=== PATIENT | male | born 1970 | race Caucasian/White ===

== ENCOUNTER 2021-04-25 18:37 | Inpatient (IN) | payer MEDICARE, OTHER ==
[2021-04-25 20:49] LABS: Basophils % (A) 0 %; Eosinophils % (A) 1 %; HCT 26.2 % (39.0-53.0); HGB 8.5 gm/dL (13.0-17.5); Hypochromasia Slight; Lymphocytes # (A) 0.3 k/uL (1.0-4.8); Lymphocytes % (A) 11 %; MCH 32.8 pg (25.0-35.0); MCHC 32.5 g/dL (31.0-37.0); MCV 100.9 fL (80.0-100.0); Macrocytosis Slight; Mean Platelet Volume 7.8; Monocytes # (A) 0.2 k/uL (0-1.0); Monocytes % (A) 7 %; Neutrophils # (A) 2.1 k/uL (1.3-7.7); Neutrophils % (A) 79 %; Platelet Count 124 k/uL (150-450); WBC 2.6 k/uL (3.8-10.6)
[2021-04-25 21:06] LABS: Partial Thromboplastin Time 26.7 sec (22.0-30.0); Prothrombin Time 10.4 sec (9.0-12.0)
--- NOTE | 2021-04-25 21:08 | XR ---
EXAMINATION TYPE: XR chest 2V DATE OF EXAM: 04/25/2021 8:39 PM COMPARISON:None TECHNIQUE: Frontal and lateral views of the chest. CLINICAL INDICATION:Male, 50 years old with history of difficulty breathing; FINDINGS: Lungs/Pleura: There is no evidence of focal consolidation, or pneumothorax. Trace bilateral pleural e ffusions Pulmonary vascularity: Unremarkable. Heart/mediastinum: Cardiomediastinal silhouette is unremarkable. Musculoskeletal: No acute osseous pathology. Other findings: None Lines/Tubes: Right internal jugular central venous catheter with distal tip at the cavoatrial junction. IMPRESSION: 1. Trace bilateral pleural effusions. 2. Right venous catheter with tip in appropriate position.
[2021-04-25 21:49] LABS: Albumin 3.1 g/dL (3.5-5.0); Calcium 9.3 mg/dL (8.4-10.2); Potassium 4.3 mmol/L (3.5-5.1); Total Bilirubin 0.7 mg/dL (0.2-1.3); Total Protein 5.5 g/dL (6.3-8.2)
[2021-04-25] MEDS ORDERED: HEPARIN SODIUM 1,000 UN/ML (10ML VL) IV PRN (21:50)
[2021-04-25] MEDS ORDERED: HEPARIN SODIUM 1,000 UN/ML (10ML VL) IV ONE (21:50)
[2021-04-25] MEDS ORDERED: ASPIRIN 81 MG PO STA (21:51)
[2021-04-25] MEDS ORDERED: HEPARIN SOD,PORK IN 0.45% NACL 25,000 UNIT in 0.45% NACL 1 250ML.BAG IV SCH (22:00)
[2021-04-25] MEDS ORDERED: NALOXONE 0.4 MG/ML 1 ML VIAL IV PRN (22:14)
--- NOTE | 2021-04-25 22:14 | ED ---
General Adult HPI - General Chief complaint: Shortness of Breath Stated complaint: Chest pain/high HR Time Seen by Provider: 04/25/21 21:10 Source: patient, RN notes reviewed, old records reviewed Mode of arrival: ambulatory Limitations: no limitations - History of Present Illness Initial comments: Patient is a 50-year-old male with past medical history remarkable for GERD, ESRD on hemodialysis via right chest PermCath who presents emergency Department complaining of a multi day history of shortness of breath. Patient was originally seen and outside facility, however they stated they could not treat him and he presented via private vehicle for further evaluation. They diagnosed him with an elevated BNP as well as an elevated d-dimer with recommendation to obtain PE rule out. His no history of blood clots. Has not missed any episodes of dialysis. He is complaining of worsening exertional shortness of breath. Denies any worsening lower extremity edema. In eyes any worsening orthopnea or PND. Denies any chest pain, abdominal pain, nausea, vomiting. Denies any lightheadedness. Has no other acute point at this time. Patient also has a history of atrial fibrillation however is not on any anticoagulation. Presents emergency department for pulmonary embolus and rule out. Denies any fevers, chills, sick contacts. Patient was evaluated when he was placed in a room. - Related Data Home Medications Medication Instructions Recorded Confirmed ALPRAZolam [Xanax] 0.5 mg PO HS 12/18/17 04/25/21 Cyclosporine, Modified [Gengraf] 25 mg PO BID 12/18/17 04/25/21 Levothyroxine Sodium [Synthroid] 50 mcg PO DAILY 12/18/17 04/25/21 Montelukast [Singulair] 10 mg PO HS 12/18/17 04/25/21 allopurinoL [Zyloprim] 100 mg PO DAILY 12/18/17 04/25/21 Cholecalciferol [Vitamin D3 (25 50 mcg PO Q48H 04/25/21 04/25/21 Mcg = 1000 Iu)] Magnesium Oxide [Magox 400] 400 mg PO DAILY 04/25/21 04/25/21 [place]-3 Fatty Acids [[place]-3] 1,000 mg PO DAILY 04/25/21 04/25/21 predniSONE 10 mg PO DAILY 04/25/21 04/25/21 Allergies Allergy/AdvReac Type Severity Reaction Status Date / Time codeine Allergy Rash/Hives Verified 04/25/21 22:58 cyclobenzaprine Allergy Rash/Hives Verified 04/25/21 22:58 [From Flexeril] diphenhydramine Allergy Anaphylaxis Verified 04/25/21 22:58 [From Benadryl] hydromorphone [From Dilaudid] Allergy Rash/Hives Verified 04/25/21 22:58 hydroxyzine Allergy Anaphylaxis Verified 04/25/21 22:58 Iodinated Contrast Media Allergy Anaphylaxis Verified 04/25/21 22:58 [Iodinated Contrast- Oral and IV Dye] latex Allergy Rash/Hives Verified 04/25/21 22:58 pantoprazole [From Protonix] Allergy Anaphylaxis Verified 04/25/21 22:58 Penicillins Allergy Rash/Hives Verified 04/25/21 22:58 potassium chloride Allergy Rash/Hives Verified 04/25/21 22:58 pregabalin [From Lyrica] Allergy Anaphylaxis Verified 04/25/21 22:58 sevelamer Allergy Rash/Hives Verified 04/25/21 22:58 warfarin [From Coumadin] Allergy Anaphylaxis Verified 04/25/21 22:58 acetaminophen [From Vicodin] AdvReac Nausea & Verified 04/25/21 22:58 Vomiting aripiprazole [From Abilify] AdvReac Abdominal Verified 04/25/21 22:58 Pain aztreonam AdvReac Unknown Verified 04/25/21 22:58 calcitriol AdvReac Unknown Verified 04/25/21 22:58 cefadroxil AdvReac Unknown Verified 04/25/21 22:58 enalapril AdvReac Unknown Verified 04/25/21 22:58 hydrocodone [From Vicodin] AdvReac Nausea & Verified 04/25/21 22:58 Vomiting Influenza Virus Vaccines AdvReac Unknown Verified 04/25/21 22:58 levofloxacin [From Levaquin] AdvReac Abdominal Verified 04/25/21 22:58 Pain meloxicam [From Mobic] AdvReac Abdominal Verified 04/25/21 22:58 Pain morphine AdvReac Unknown Verified 04/25/21 22:58 propoxyphene AdvReac Unknown Verified 04/25/21 22:58 Sulfa (Sulfonamide AdvReac Vomiting Verified 04/25/21 22:58 Antibiotics) tramadol AdvReac Unknown Verified 04/25/21 22:58 Review of Systems ROS Statement: Those systems with pertinent positive or pertinent negative responses have been documented in the HPI. Review of Systems: CONST: Denies fever EYES: Denies blurry vision ENT: Denies nasal congestion C/V: Denies Chest pain RESP: Endorses shortness of breath GI: Denies abdominal pain : Denies dysuria SKIN: Denies rash. MSK: Denies joint pain. NEURO: Denies headache ROS Other: All systems not noted in ROS Statement are negative. Past Medical History Past Medical History: GERD/Reflux, Renal Disease Additional Past Medical History / Comment(s): dialysis, diverticulitis History of Any Multi-Drug Resistant Organisms: None Reported Additional Past Surgical History / Comment(s): fistula placement Past Psychological History: No Psychological Hx Reported Smoking Status: Never smoker Past Alcohol Use History: None Reported Past Drug Use History: None Reported General Exam - General Exam Comments Initial Comments: General: Appears in no acute distress. HEAD: Normal with no signs of head trauma. EYES: PERRLA, EOMI, conjunctiva normal, no discharge. ENT: Hearing grossly intact, normal oropharynx. RESPIRATORY: Clear breath sounds bilaterally. No wheezes, rales, or rhonchi. Not hypoxic. No increased work of breathing. C/V: Regular rate and rhythm. S1 and S2 auscultated, no edema, peripheral pulses 2+ and intact throughout. Patient's PermCath appears unremarkable and the right chest. ABD: Abd is soft, nontender, nondistended EXT: Normal range of motion, no obvious deformity SKIN: No rashes or lesions observed on exposed skin. NEURO: Alert and oriented x 4. Cranial nerves II-XII intact. No focal sensory or strength deficits. Limitations: no limitations Course Vital Signs 04/25/21 04/25/21 19:42 21:51 Temperature 98.4 F Pulse Rate 100 81 Respiratory 20 18 Rate Blood Pressure 118/74 143/94 O2 Sat by Pulse 95 95 Oximetry Procedures - [place] Protocol (Time Out) Nurse: Scott Lora Medical Decision Making - Medical Decision Making Based on the patient's presentation and physical exam, I'm concerned for volume overload versus his elevated d-dimer for possible PE. Repeat laboratory studies were already drawn while he was in the waiting room. Remarkable for a macrocytic anemia with hemoglobin of 8.5 which is chronic. D-dimer is elevated to 2.25. Troponin is minimally elevated to 0.049, and BNP is elevated to 34,000. Chest x-ray was obtained and revealed trace bilateral pleural effusions with no sign of CHF. EKG was obtained and showed no acute cardio pulmonary process. Patient is an elevated BUN/creatinine the setting of ESRD. Patient is mildly hyponatremic to 125 hypokalemic to 91. Remainder of the labs are unremarkable. Vital signs remained within normal limits and stable. I updated the patient on results of his laboratory studies and imaging. I would like to admit him to the hospital in place him empirically on heparin as he has an anaphylactic reaction to iodine contrast, and is also ALLERGIC to Benadryl. Therefore he will be admitted for a VQ scan, however will be empirically placed on heparin until VQ scan can be completed tomorrow. He will also be given an aspirin for his mildly elevated troponin we will trend up. Cardiology will be consulted as well as pulmonology. Patient was in agreement with this plan .Patient was evaluated multiple times status in the emergency department by myself and continued to remain within normal limits in terms of his vital signs and stable. Patient does not have a PCP, and therefore will be admitted to [facility]. Cardiology and pulmonology will both be consulted for the patient. Nephrology will also be consulted as he is due for his dialysis run due tomorrow. Patient was in agreement this plan. Patient was therefore admitted to telemetry bed and serous condition. - Lab Data Result diagrams: 04/25/21 20:36 04/25/21 20:36 Lab Results 04/25/21 04/25/21 04/25/21 Range/Units 20:36 20:36 20:36 WBC 2.6 L (3.8-10.6) k/uL RBC 2.60 L (4.30-5.90) m/uL Hgb 8.5 L (13.0-17.5) gm/dL Hct 26.2 L (39.0-53.0) % MCV 100.9 H (80.0-100.0) fL MCH 32.8 (25.0-35.0) pg MCHC 32.5 (31.0-37.0) g/dL RDW 14.0 (11.5-15.5) % Plt Count 124 L (150-450) k/uL MPV 7.8 Neutrophils % 79 % Lymphocytes % 11 % Monocytes % 7 % Eosinophils % 1 % Basophils % 0 % Neutrophils # 2.1 (1.3-7.7) k/uL Lymphocytes # 0.3 L (1.0-4.8) k/uL Monocytes # 0.2 (0-1.0) k/uL Eosinophils # 0.0 (0-0.7) k/uL Basophils # 0.0 (0-0.2) k/uL Hypochromasia Slight Macrocytosis Slight PT 10.4 (9.0-12.0) sec INR 1.0 (<1.2) APTT 26.7 (22.0-30.0) sec D-Dimer 2.25 H (<0.60) mg/L FEU Sodium 125 L (137-145) mmol/L Potassium 4.3 (3.5-5.1) mmol/L Chloride 91 L (98-107) mmol/L Carbon Dioxide 27 (22-30) mmol/L Anion Gap 7 mmol/L BUN 44 H (9-20) mg/dL Creatinine 8.67 H* (0.66-1.25) mg/dL Est GFR (CKD-EPI)AfAm 7 (>60 ml/min/1.73 sqM) Est GFR (CKD-EPI)NonAf 6 (>60 ml/min/1.73 sqM) Glucose 130 H (74-99) mg/dL Plasma Lactic Acid Cristobal (0.7-2.0) mmol/L Calcium 9.3 (8.4-10.2) mg/dL Total Bilirubin 0.7 (0.2-1.3) mg/dL AST 29 (17-59) U/L ALT 20 (4-49) U/L Alkaline Phosphatase 87 (38-126) U/L Troponin I (0.000-0.034) ng/mL NT-Pro-B Natriuret Pep pg/mL Total Protein 5.5 L (6.3-8.2) g/dL Albumin 3.1 L (3.5-5.0) g/dL 04/25/21 04/25/21 04/25/21 Range/Units 20:36 20:36 20:36 WBC (3.8-10.6) k/uL RBC (4.30-5.90) m/uL Hgb (13.0-17.5) gm/dL Hct (39.0-53.0) % MCV (80.0-100.0) fL MCH (25.0-35.0) pg MCHC (31.0-37.0) g/dL RDW (11.5-15.5) % Plt Count (150-450) k/uL MPV Neutrophils % % Lymphocytes % % Monocytes % % Eosinophils % % Basophils % % Neutrophils # (1.3-7.7) k/uL Lymphocytes # (1.0-4.8) k/uL Monocytes # (0-1.0) k/uL Eosinophils # (0-0.7) k/uL Basophils # (0-0.2) k/uL Hypochromasia Macrocytosis PT (9.0-12.0) sec INR (<1.2) APTT (22.0-30.0) sec D-Dimer (<0.60) mg/L FEU Sodium (137-145) mmol/L Potassium (3.5-5.1) mmol/L Chloride (98-107) mmol/L Carbon Dioxide (22-30) mmol/L Anion Gap mmol/L BUN (9-20) mg/dL Creatinine (0.66-1.25) mg/dL Est GFR (CKD-EPI)AfAm (>60 ml/min/1.73 sqM) Est GFR (CKD-EPI)NonAf (>60 ml/min/1.73 sqM) Glucose (74-99) mg/dL Plasma Lactic Acid Cristobal 0.6 L (0.7-2.0) mmol/L Calcium (8.4-10.2) mg/dL Total Bilirubin (0.2-1.3) mg/dL AST (17-59) U/L ALT (4-49) U/L Alkaline Phosphatase (38-126) U/L Troponin I 0.049 H* (0.000-0.034) ng/mL NT-Pro-B Natriuret Pep 90480 pg/mL Total Protein (6.3-8.2) g/dL Albumin (3.5-5.0) g/dL - EKG Data -: EKG Interpreted by Me EKG Comments: 12-lead Electrocardiogram Interpretation Note EKG was reviewed and interpreted by myself. 12-lead ECG performed at 20-4 is interpreted by me as revealing atrial fibrillation rate controlled at a rate of 105 beats per minute. Clune is normal. MA interval is unobtainable, QRS ration is 95 ms, QTc is 390 ms.. There were no ST or T wave abnormalities to suggest myocardial ischemia or injury. R wave progression across the precordium was satisfactory. By my interpretation this EKG is non-diagnostic for acute ischemia. Critical Care Time Critical Care Time: Yes Total Critical Care Time: 35 Critical Care Time: Upon my evaluation, this patient had a high probability of imminent or life- threatening deterioration due to elevated d-dimer rule out PE, dyspnea, which required my direct attention, intervention, and personal management. I have personally provided 35 minutes of critical care time exclusive of time spent on separately billable procedures. Time includes review of laboratory data, radiology results, discussion with consultants, and monitoring for potential decompensation. Interventions were performed as documented in my note. Disposition Clinical Impression: Elevated d-dimer, Elevated troponin, Dyspnea, ESRD on dialysis, Bilateral pleural effusion Disposition: ADMITTED IP TO THIS HOSP Condition: Serious
--- NOTE | 2021-04-25 23:52 | US ---
EXAMINATION TYPE: US venous doppler duplex LE DATE OF EXAM: 04/25/2021 10:51 PM COMPARISON: NONE CLINICAL HISTORY: elevated d dimer. Elevated Ddimer SIDE PERFORMED: Bilateral TECHNIQUE: The lower extremity deep venous system is examined utilizing real time linear array sonog [place] with graded compression, doppler sonography and color-flow sonography. VESSELS IMAGED: Common Femoral Vein Deep Femoral Vein Greater Saphenous Vein * Femoral Vein Popliteal Vein Small Saphenous Vein * Proximal Calf Veins (* superficial vessels) Right Leg: Negative for DVT Left Leg: Negative for DVT IMPRESSION: No evidence of deep vein thrombosis in both legs.
--- NOTE | 2021-04-26 03:26 | P.HPIM ---
History of Present Illness H&P Date: 04/25/21 Chief Complaint: Shortness of breath 50-year-old male with end-stage renal disease, A. fib Patient comes in today due to worsening shortness of breath which has been progressive over the past 4 months. Patient has end-stage renal disease since age of 13 or 14 he had a kidney transplant for good 20 years and been filled recently over the past for 5 years. Patient since then been back on hemodialysis currently performing home hemodialysis through a right permacath which was inserted 4 months ago he claims that since the insertion of the right permacath is been having some difficulty with swallowing. He reports history of GERD and now having some symptoms of dysphagia occasionally with solid foods. He also had noticed some shortness of breath which got worse over the past 2 months it's been progressive mild exertion no shortness of breath at rest or laying down denies any PND is or orthopnea. Denies any chest pain or wheezing. This has been progressive so he went to [facility] where he was evaluated he was found to have elevated d-dimer is ALLERGIC to Benadryl and iodine for which he recommended they come to our hospital for further evaluation CTA was not done patient was not hypoxic chest x-ray shows trace bilateral pleural effusion. Patient denies any history of blood clots denies being on any blood thinner despite having history of A. fib. He denies any bleeding. He is otherwise been clinically stable in good health condition except for the progressive shortness of breath and decreased functional capacity. His mother who performs his hemodialysis has noted that every time she does his vitals during dialysis his heartrate will be elevated in the 130s and that's usually leads to the shortness of breath later. However they never thought of talking about this with his collection clerk as it subsides once he finishes dialysis or when he rests all his symptoms goes away. Further workup showed low white count at 2.6 chronic anemia hemoglobin 8.5 end- stage renal disease low platelets 124. D-dimer elevated 2.25 Low sodium and elevated BMP. Patient denies any history of CHF. Patient admitted for further workup and evaluation by cardiology and pulmonology and nephrology, VQ scan to be performed in the morning and echocardiogram to evaluate left ventricular ejection fraction Review of Systems Pertinent positives as noted in HPI. All other systems were reviewed and are negative Past Medical History Past Medical History: Atrial Fibrillation, GERD/Reflux, Renal Disease Additional Past Medical History / Comment(s): dialysis, diverticulitis History of Any Multi-Drug Resistant Organisms: None Reported Additional Past Surgical History / Comment(s): fistula placement Past Psychological History: No Psychological Hx Reported Smoking Status: Never smoker Past Alcohol Use History: None Reported Past Drug Use History: None Reported - Past Family History Family Family Medical History: No Reported History Medications and Allergies Home Medications Medication Instructions Recorded Confirmed Type ALPRAZolam [Xanax] 0.5 mg PO HS 12/18/17 04/25/21 History Cyclosporine, Modified [Gengraf] 25 mg PO BID 12/18/17 04/25/21 History Levothyroxine Sodium [Synthroid] 50 mcg PO DAILY 12/18/17 04/25/21 History Montelukast [Singulair] 10 mg PO HS 12/18/17 04/25/21 History allopurinoL [Zyloprim] 100 mg PO DAILY 12/18/17 04/25/21 History Cholecalciferol [Vitamin D3 (25 50 mcg PO Q48H 04/25/21 04/25/21 History Mcg = 1000 Iu)] Magnesium Oxide [Magox 400] 400 mg PO DAILY 04/25/21 04/25/21 History [place]-3 Fatty Acids [[place]-3] 1,000 mg PO DAILY 04/25/21 04/25/21 History predniSONE 10 mg PO DAILY 04/25/21 04/25/21 History Allergies Allergy/AdvReac Type Severity Reaction Status Date / Time codeine Allergy Rash/Hives Verified 04/25/21 22:58 cyclobenzaprine Allergy Rash/Hives Verified 04/25/21 22:58 [From Flexeril] diphenhydramine Allergy Anaphylaxis Verified 04/25/21 22:58 [From Benadryl] hydromorphone [From Dilaudid] Allergy Rash/Hives Verified 04/25/21 22:58 hydroxyzine Allergy Anaphylaxis Verified 04/25/21 22:58 Iodinated Contrast Media Allergy Anaphylaxis Verified 04/25/21 22:58 [Iodinated Contrast- Oral and IV Dye] latex Allergy Rash/Hives Verified 04/25/21 22:58 pantoprazole [From Protonix] Allergy Anaphylaxis Verified 04/25/21 22:58 Penicillins Allergy Rash/Hives Verified 04/25/21 22:58 potassium chloride Allergy Rash/Hives Verified 04/25/21 22:58 pregabalin [From Lyrica] Allergy Anaphylaxis Verified 04/25/21 22:58 sevelamer Allergy Rash/Hives Verified 04/25/21 22:58 warfarin [From Coumadin] Allergy Anaphylaxis Verified 04/25/21 22:58 acetaminophen [From Vicodin] AdvReac Nausea & Verified 04/25/21 22:58 Vomiting aripiprazole [From Abilify] AdvReac Abdominal Verified 04/25/21 22:58 Pain aztreonam AdvReac Unknown Verified 04/25/21 22:58 calcitriol AdvReac Unknown Verified 04/25/21 22:58 cefadroxil AdvReac Unknown Verified 04/25/21 22:58 enalapril AdvReac Unknown Verified 04/25/21 22:58 hydrocodone [From Vicodin] AdvReac Nausea & Verified 04/25/21 22:58 Vomiting Influenza Virus Vaccines AdvReac Unknown Verified 04/25/21 22:58 levofloxacin [From Levaquin] AdvReac Abdominal Verified 04/25/21 22:58 Pain meloxicam [From Mobic] AdvReac Abdominal Verified 04/25/21 22:58 Pain morphine AdvReac Unknown Verified 04/25/21 22:58 propoxyphene AdvReac Unknown Verified 04/25/21 22:58 Sulfa (Sulfonamide AdvReac Vomiting Verified 04/25/21 22:58 Antibiotics) tramadol AdvReac Unknown Verified 04/25/21 22:58 Physical Exam Vitals: Vital Signs Temp Pulse Resp BP Pulse Ox 04/25/21 21:51 81 18 143/94 95 04/25/21 19:42 98.4 F 100 20 118/74 95 Intake and Output 04/25/21 04/25/21 04/25/21 06:59 14:59 22:59 Other: Weight 80.739 kg Constitutional: No acute distress, conversant, pleasant, patient is legally blind Eyes: Anicteric sclerae, moist conjunctiva, ENMT: NC/AT Oropharynx clear, no erythema, or exudates Neck: Supple, , no masses, or JVD No carotid bruits No thyromegaly Lungs: Clear to auscultation Clear to percussion Normal respiratory effort, no accessory muscle use Cardiovascular: Heart regular in rate and rhythm, No murmurs, gallops, or rubs Trace peripheral edema bilaterally Abdominal: Soft Nontender, no guarding, rebound or rigidity Abdomen moving with respiration Normoactive bowel sounds No hepatomegaly, No splenomegaly No palpable mass No abdominal wall hernia noted Skin: Normal temperature, tone, texture, turgor No induration No subcutaneous nodules No rash, lesions No ulcers Extremities: No digital cyanosis No clubbing Pedal pulses intact and symmetrical Radial pulses intact and symmetrical No calf tenderness Psychiatric: Alert and oriented to person, place and time Appropriate affect fair judgement Neuro Muscles Strength 4/5 in all 4 extremities Sensation to light touch grossly present throughout Cranial nerves II-XII grossly intact except for second cranial nerve optic nerve patient is legally blind No focal sensory deficits Lymphatics: no palpable cervical or supraclavicular , or inguinal lymph nodes Results CBC & Chem 7: 04/25/21 20:36 04/25/21 20:36 Labs: Abnormal Lab Results - Last 24 Hours (Table) 04/25/21 04/25/21 04/25/21 Range/Units 20:36 20:36 20:36 WBC 2.6 L (3.8-10.6) k/uL RBC 2.60 L (4.30-5.90) m/uL Hgb 8.5 L (13.0-17.5) gm/dL Hct 26.2 L (39.0-53.0) % MCV 100.9 H (80.0-100.0) fL Plt Count 124 L (150-450) k/uL Lymphocytes # 0.3 L (1.0-4.8) k/uL D-Dimer 2.25 H (<0.60) mg/L FEU Sodium 125 L (137-145) mmol/L Chloride 91 L (98-107) mmol/L BUN 44 H (9-20) mg/dL Creatinine 8.67 H* (0.66-1.25) mg/dL Glucose 130 H (74-99) mg/dL Plasma Lactic Acid Cristobal (0.7-2.0) mmol/L Troponin I (0.000-0.034) ng/mL Total Protein 5.5 L (6.3-8.2) g/dL Albumin 3.1 L (3.5-5.0) g/dL 04/25/21 04/25/21 Range/Units 20:36 20:36 WBC (3.8-10.6) k/uL RBC (4.30-5.90) m/uL Hgb (13.0-17.5) gm/dL Hct (39.0-53.0) % MCV (80.0-100.0) fL Plt Count (150-450) k/uL Lymphocytes # (1.0-4.8) k/uL D-Dimer (<0.60) mg/L FEU Sodium (137-145) mmol/L Chloride (98-107) mmol/L BUN (9-20) mg/dL Creatinine (0.66-1.25) mg/dL Glucose (74-99) mg/dL Plasma Lactic Acid Cristobal 0.6 L (0.7-2.0) mmol/L Troponin I 0.049 H* (0.000-0.034) ng/mL Total Protein (6.3-8.2) g/dL Albumin (3.5-5.0) g/dL Assessment and Plan Assessment: Progressive exertional dyspnea Rule out underlying PE patient has elevated d-dimer to DrLety from CT angiogram the chest due to ALLERGY to iodine and Benadryl and multiple other medication ALLERGIES Plan for VQ scan the morning Patient is on room air Doubt the diagnosis of PE Patient was started on heparin drip Patient also have A. fib with RVR not currently on any blood thinners Check echocardiogram Consider cardiology and pulmonology consultation End-stage renal disease on home hemodialysis, through a right permacath which was placed 4 months ago Nephrology consult for dialysis Follow-up morning labs Chronic anemia stable Patient denies any GI bleeding History of GERD with new symptoms of dysphagia Consider outpatient follow-up with GI Patient has established GI outpatient he had the colonoscopy done recently and was negative Fall precautions Due to prophylaxis currently on heparin drip Full code Spit length of stay less than 2 midnights
[2021-04-26] MEDS ORDERED: LEVOTHYROXINE 50 MCG TAB PO SCH (06:30)
[2021-04-26 06:33] LABS: Albumin 3.4 g/dL (3.5-5.0); Calcium 9.6 mg/dL (8.4-10.2); Total Bilirubin 0.7 mg/dL (0.2-1.3); Total Protein 6.1 g/dL (6.3-8.2)
[2021-04-26 06:36] LABS: HCT 27.3 % (39.0-53.0); HGB 8.8 gm/dL (13.0-17.5); Hypochromasia Slight; MCH 32.8 pg (25.0-35.0); MCHC 32.2 g/dL (31.0-37.0); Macrocytosis Slight; Mean Platelet Volume 8.4; Platelet Count 142 k/uL (150-450); RBC 2.68 m/uL (4.30-5.90); RDW 13.9 % (11.5-15.5); WBC 2.5 k/uL (3.8-10.6)
[2021-04-26 07:10] LABS: Anisocytosis (M) Present; Lymphocytes # (M) 0.48 k/uL (1.0-4.8); Monocytes # (M) 0.35 k/uL (0-1.0); Neutrophils # (M) 1.68 k/uL (1.3-7.7); Neutrophils % (M) 67 %; Nucleated Red Blood Cells 0 /100 WBC (0-0); Polychromasia Present; Total Cells Counted 100
[2021-04-26 08:25] VITALS: TEMP 98.5
[2021-04-26] MEDS ORDERED: predniSONE 10 MG TAB PO SCH (09:00)
[2021-04-26] MEDS ORDERED: MAGNESIUM OXIDE 400 MG TAB PO SCH (09:00)
[2021-04-26] MEDS ORDERED: allopurinoL 100 MG TAB PO SCH (09:00)
[2021-04-26] MEDS ORDERED: METOPROLOL TARTRATE 25 MG TAB PO SCH (09:30)
--- NOTE | 2021-04-26 09:45 | P.HPPUL ---
History of Present Illness H&P Date: 04/26/21 Chief Complaint: Palpitations, chest pain Visit very pleasant 50-year-old male patient with a known history of end-stage renal disease and receives hemodialysis Friday at home. He also has a history of gastroesophageal reflux disease, hypothyroidism, anxiety, recent shingles, atrial fibrillation not on anticoagulation. He presented here to the emergency room as a transfer from an outside facility. He was having complaints of increased heart rate, palpitations and chest pain. He is having some shortness of breath on exertion. Chest x-ray shows trace bilateral effusions. Right subclavian permacatheter in place. White count 2.5. Hemoglobin 8.8. Platelets 142,000. D-dimer 2.25. Sodium 127. Potassium 4.0. BUN 50. Creatinine 9.74. Troponin 0.049, 0.050, 0.048. ProBNP 34,000. Vee virus by PCR not detected. EKG reveals atrial fibrillation with varying ventricular response. Dopplers of the lower extremity were negative for DVT. IV dye ALLERGY. The patient was unable to lay flat today for a VQ scan. He is seen today in consultation in the emergency department. He is currently resting comfortably on the stretcher. Awake and alert in no acute distress. Maintaining O2 saturation at 97% on room air. No worsening shortness of breath, cough or congestion. He is due for hemodialysis today. Echocardiogram pending. There is a murmur present. Review of Systems REVIEW OF SYSTEMS: CONSTITUTIONAL: Denies any recent significant weight loss or weight gain. EYES: Denies change in vision. EARS, NOSE, MOUTH, THROAT: Denies headaches, denies sore throat. CARDIOVASCULAR: Positive for chest pain, palpitations no syncopal episodes. RESPIRATORY: Positive for shortness of breath on exertion, no cough, congestion or hemoptysis. GASTROINTESTINAL: Denies change in appetite, denies abdominal pain GENITOURINARY: Denies hematuria, denies infections. MUSKULOSKELETAL: Denies pain, denies swelling. INTEGUMENTARY: Denies rash, denies eczema. NEUROLOGICAL: Denies recent memory loss, no recent seizure activity. PSYCHIATRIC: Denies anxiety, denies depression. HEMATOLOGIC/LYMPHATIC: Denies anemia, denies enlarged lymph nodes. Past Medical History Past Medical History: Atrial Fibrillation, GERD/Reflux, Renal Disease Additional Past Medical History / Comment(s): dialysis, diverticulitis History of Any Multi-Drug Resistant Organisms: None Reported Additional Past Surgical History / Comment(s): fistula placement Past Psychological History: No Psychological Hx Reported Smoking Status: Never smoker Past Alcohol Use History: None Reported Past Drug Use History: None Reported - Past Family History Family Family Medical History: No Reported History Medications and Allergies Home Medications Medication Instructions Recorded Confirmed Type ALPRAZolam [Xanax] 0.5 mg PO HS 12/18/17 04/25/21 History Cyclosporine, Modified [Gengraf] 25 mg PO BID 12/18/17 04/25/21 History Levothyroxine Sodium [Synthroid] 50 mcg PO DAILY 12/18/17 04/25/21 History Montelukast [Singulair] 10 mg PO HS 12/18/17 04/25/21 History allopurinoL [Zyloprim] 100 mg PO DAILY 12/18/17 04/25/21 History Cholecalciferol [Vitamin D3 (25 50 mcg PO Q48H 04/25/21 04/25/21 History Mcg = 1000 Iu)] Magnesium Oxide [Magox 400] 400 mg PO DAILY 04/25/21 04/25/21 History [place]-3 Fatty Acids [[place]-3] 1,000 mg PO DAILY 04/25/21 04/25/21 History predniSONE 10 mg PO DAILY 04/25/21 04/25/21 History Allergies Allergy/AdvReac Type Severity Reaction Status Date / Time codeine Allergy Rash/Hives Verified 04/25/21 22:58 cyclobenzaprine Allergy Rash/Hives Verified 04/25/21 22:58 [From Flexeril] diphenhydramine Allergy Anaphylaxis Verified 04/25/21 22:58 [From Benadryl] hydromorphone [From Dilaudid] Allergy Rash/Hives Verified 04/25/21 22:58 hydroxyzine Allergy Anaphylaxis Verified 04/25/21 22:58 Iodinated Contrast Media Allergy Anaphylaxis Verified 04/25/21 22:58 [Iodinated Contrast- Oral and IV Dye] latex Allergy Rash/Hives Verified 04/25/21 22:58 pantoprazole [From Protonix] Allergy Anaphylaxis Verified 04/25/21 22:58 Penicillins Allergy Rash/Hives Verified 04/25/21 22:58 potassium chloride Allergy Rash/Hives Verified 04/25/21 22:58 pregabalin [From Lyrica] Allergy Anaphylaxis Verified 04/25/21 22:58 sevelamer Allergy Rash/Hives Verified 04/25/21 22:58 warfarin [From Coumadin] Allergy Anaphylaxis Verified 04/25/21 22:58 acetaminophen [From Vicodin] AdvReac Nausea & Verified 04/25/21 22:58 Vomiting aripiprazole [From Abilify] AdvReac Abdominal Verified 04/25/21 22:58 Pain aztreonam AdvReac Unknown Verified 04/25/21 22:58 calcitriol AdvReac Unknown Verified 04/25/21 22:58 cefadroxil AdvReac Unknown Verified 04/25/21 22:58 enalapril AdvReac Unknown Verified 04/25/21 22:58 hydrocodone [From Vicodin] AdvReac Nausea & Verified 04/25/21 22:58 Vomiting Influenza Virus Vaccines AdvReac Unknown Verified 04/25/21 22:58 levofloxacin [From Levaquin] AdvReac Abdominal Verified 04/25/21 22:58 Pain meloxicam [From Mobic] AdvReac Abdominal Verified 04/25/21 22:58 Pain morphine AdvReac Unknown Verified 04/25/21 22:58 propoxyphene AdvReac Unknown Verified 04/25/21 22:58 Sulfa (Sulfonamide AdvReac Vomiting Verified 04/25/21 22:58 Antibiotics) tramadol AdvReac Unknown Verified 04/25/21 22:58 Physical Examination Vital signs: Vital Signs Temp Pulse Resp BP Pulse Ox 98.4 F 100 20 118/74 95 04/25/21 19:42 04/25/21 19:42 04/25/21 19:42 04/25/21 19:42 04/25/21 19:42 General appearance: no acute distress, alert Eyes: nonicteric ENT: oropharynx moist Neck: supple, no JVD Effort: normal Auscultation: Bilateral: diminished breath sounds, rales Percussion: Bilateral: not dull Tactile fremitus: Bilateral: normal Cardiovascular: irregular rhythm, murmur noted Gastrointestinal: normoactive bowel sounds Integumentary: normal Extremities: no cyanosis, no edema Musculoskeletal: no deformities, ROM normal Gait: normal gait normal mental status, non-focal exam mood appropriate, affect normal Results - Laboratory Findings CBC and BMP: 04/26/21 05:50 04/26/21 05:50 PT/INR, D-dimer PT 10.4 sec (9.0-12.0) 04/25/21 20:36 INR 1.0 (<1.2) 04/25/21 20:36 D-Dimer 2.25 mg/L FEU (<0.60) H 04/25/21 20:36 Abnormal lab findings: Abnormal Labs 04/25/21 04/25/21 04/25/21 20:36 20:36 20:36 WBC 2.6 L RBC 2.60 L Hgb 8.5 L Hct 26.2 L MCV 100.9 H Plt Count 124 L Lymphocytes # 0.3 L Lymphocytes # (Manual) APTT D-Dimer 2.25 H Sodium 125 L Chloride 91 L BUN 44 H Creatinine 8.67 H* Glucose 130 H Plasma Lactic Acid Cristobal Troponin I Total Protein 5.5 L Albumin 3.1 L 04/25/21 04/25/21 04/25/21 20:36 20:36 23:34 WBC RBC Hgb Hct MCV Plt Count Lymphocytes # Lymphocytes # (Manual) APTT D-Dimer Sodium Chloride BUN Creatinine Glucose Plasma Lactic Acid Cristobal 0.6 L Troponin I 0.049 H* 0.050 H* Total Protein Albumin 04/26/21 04/26/21 04/26/21 03:22 05:50 05:50 WBC 2.5 L RBC 2.68 L Hgb 8.8 L Hct 27.3 L MCV 102.0 H Plt Count 142 L Lymphocytes # Lymphocytes # (Manual) 0.48 L APTT D-Dimer Sodium 127 L Chloride 92 L BUN 50 H Creatinine 9.74 H* Glucose Plasma Lactic Acid Cristobal Troponin I 0.048 H* Total Protein 6.1 L Albumin 3.4 L 04/26/21 05:50 WBC RBC Hgb Hct MCV Plt Count Lymphocytes # Lymphocytes # (Manual) APTT 112.8 H* D-Dimer Sodium Chloride BUN Creatinine Glucose Plasma Lactic Acid Cristobal Troponin I Total Protein Albumin - Diagnostic Findings Chest x-ray: image reviewed Assessment and Plan Assessment: 1 Chest pain and palpitations secondary to atrial fibrillation with mild troponin leak. Currently on a heparin drip. 2 Atrial fibrillation with varying ventricular response. Not on anticoagulants in the outpatient setting. History of warfarin ALLERGY 3 Dyspnea on exertion secondary to mild fluid volume overload 4 End-stage renal disease on hemodialysis Friday. Kidneys failed at a young age 13 or 14 he had a kidney transplant 20 years ago. 5 Elevated d-dimer though doubt pulmonary embolism. Dopplers lower extremity negative for DVT. Room air oxygen 97%. Unable to perform CT angiogram or VQ scan. 6 Hypothyroidism 7 History of anxiety 8 Multiple ALLERGIES, greater than 25 listed Plan: The patient was seen and evaluated Chest x-ray and labs reviewed Doubt pulmonary embolism Iodine and Benadryl ALLERGY, no CTA performed Unable to lay flat for VQ scan Dopplers of lower extremity negative Continue heparin drip for now Echocardiogram pending To receive hemodialysis today Cleared for discharge once cleared by cardiology I, the cosigning physician, performed a history & physical examination of the patient. Lungs sounds with crackles in posterior bases, diminished. Maintaining good O2 saturations in the 90s on room air. I discussed the assessment and plan of care with my nurse practitioner, Micki Campos. I attest to the above consultation as dictated by her. Time with Patient: Greater than 30
[2021-04-26 10:39] VITALS: BP 151/74; PULSE 105; RESP 18
--- NOTE | 2021-04-26 10:56 | ECHOF ---
Referral Reason:exertional dyspnea MEASUREMENTS -------- HEIGHT: 172.7 cm WEIGHT: 80.7 kg BP: 120/99 RVIDd: 3.2 cm (< 3.3) IVSd: 1.6 cm (0.6 - 1.1) LVIDd: 4.0 cm (3.9 - 5.3) LVPWd: 2.1 cm (0.6 - 1.1) IVSs: 2.0 cm LVIDs: 2.2 cm LVPWs: 2.6 cm LAESV Index (A-L): 48.98 ml/m Ao Diam: 3.5 cm (2.0 - 3.7) AV Cusp: 1.1 cm (1.5 - 2.6) LA Diam: 4.6 cm (2.7 - 3.8) MV EXCURSION: 13.838 mm (> 18.000) MV EF SLOPE: 72 mm/s (70 - 150) EPSS: 1.6 cm AV maxP.27 mmHg AV meanP.78 mmHg RAP: 5.00 mmHg RVSP: 34.10 mmHg FINDINGS -------- Atrial fibrillation. This was a technically adequate study. The left ventricular size is normal. There is moderate concentric left ventricular hypertrophy. O verall left ventricular systolic function is normal with, an EF between 55 - 60 %. The right ventricle is normal in size. LA is severely dilated >40 ml/m2 The right atrial size is normal. Interatrial and interventricular septum intact. There is no evidence of aortic regurgitation. There is moderate aortic stenosis present. The maxi mum velocity across the aortic valve is 3.40m/s. Peak/mean gradient across the Aortic Valve is 46.2 7mmHg / 25.78mmHg. Moderate mitral annular calcification present. Moderate mitral regurgitation is present. Mild tricuspid regurgitation present. There is no evidence of pulmonary hypertension. The right v entricular systolic pressure, as measured by Doppler, is 34.10mmHg. There is no pulmonic regurgitation present. The aortic root size is normal. IVC Not well visulized. There is a small pericardial effusion is located near the right ventricle. CONCLUSIONS -------- 1. The left ventricular size is normal. 2. There is moderate concentric left ventricular hypertrophy. 3. Overall left ventricular systolic function is normal with, an EF between 55 - 60 %. 4. LA is severely dilated >40 ml/m2 5. There is moderate aortic stenosis present. 6. The maximum velocity across the aortic valve is 3.40m/s. 7. Peak/mean gradient across the Aortic Valve is 46.27mmHg / 25.78mmHg. 8. Moderate mitral annular calcification present. 9. Moderate mitral regurgitation is present. 10. Mild tricuspid regurgitation present. 11. There is a small pericardial effusion is located near the right ventricle. SCAN COORDINATOR: Moraima Heath RDCS
--- NOTE | 2021-04-26 14:25 | P.CRDCN ---
History of Present Illness History of present illness: HISTORY OF PRESENTING ILLNESS This is a pleasant 50-year-old male past medical history significant for ESRD on hemodialysis, kidney transplant 20 years ago, GERD, paroxysmal atrial fibrillati on initally diagnosed at age 15, hypothyroidism. Recent admission a Cesilia one month ago for Shingles. 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 We have been asked to see in consultation for atrial fibrillation with RVR. Patient presents to the emergency department with his mother who states she has been noticing the patient's heart rate being elevated prior and during dialysis. He also endorses palpitations and some mild shortness of breath. He also endorses some midsternal chest discomfort when eating, states he feels as if food is getting stuck. He also states he has been having increased fatigue after his discharge from the hospital last month. He denies exertional shortness of breath or chest discomfort, lightheadedness, dizziness, syncope. Patient denies history of MA, Coronary artery disease, Diabetes, Stroke, HTN, MA, Hyperlipidemia. He initially went to [facility] where he was evaluated he was found to have elevated d-dimer and was transferred to [facility]. He states at home his blood pressure is not elevated and has been told it is normal DIAGNOSTICS EKG reveals atrial fibrillation with ventricular response, heart rate 105. Prior EKG in 2018 patient was in sinus mechanism Telemetry at bedside reveals atrial fibrillation with heart rates in the [id number] Chest xray no acute cardiopulmonary process Laboratory reviewed, WBC 2.5, hemoglobin 8.8, platelets 142, d-dimer 2.25, sodium 127, potassium 4.0, BUN 50, serum creatinine 0.7, troponin 0.04, 0.05, 0.04, proBNP 34,000, COVID-19 negative, albumin 3.1 Current home medications include Synthroid, allopurinol, Xanax, Singulair, prednisone, magnesium oxide, vitamin D REVIEW OF SYSTEMS At the time of my exam: CONSTITUTIONAL: Denies fever or chills. CARDIOVASCULAR: Denies chest pain, shortness of breath, orthopnea, PND or palpitations. RESPIRATORY: Denies cough. GASTROINTESTINAL: Denies abdominal pain, diarrhea, constipation, nausea or vomiting. MUSCULOSKELETAL: Denies myalgias. NEUROLOGIC: Denies numbness, tingling, headacbe or weakness. ENDOCRINE: Denies fatigue, weight change, polydipsia or polyurina. GENITOURINARY: Denies burning, hematuria or urgency with micturation. HEMATOLOGIC: Denies history of anemia or bleeding. PHYSICAL EXAMINATION Vitals 144/95, heart rate 98, afebrile, saturations 97% on room air CONSTITUTIONAL: No apparent distress. HEENT: Head is normocephalic. Pupils are equal, round. Sclerae anicteric. Mucous membranes of the mouth are moist. No JVD. No carotid bruit. CHEST EXAMINATION: Lungs are clear to auscultation. No chest wall tenderness is noted on palpation or with deep breathing. HEART EXAMINATION: Regular rate and rhythm. S1, S2 heard. Systolic ejection murmur noted at apex and base ABDOMEN: Soft, nontender. Positive bowel sounds. EXTREMITIES: 2+ peripheral pulses, no lower extremity edema and no calf tenderness. SKIN: warm, dry NEUROLOGIC EXAMINATION: Patient is awake, alert and oriented x3. ASSESSMENT Paroxysmal atrial fibrillation -[id number] score 1 End stage renal disease on hemodialysis History of kidney transplant 20 years ago GERD Hypothyroidism Aortic Stenosis Mitral regurgitation PLAN Start metoprolol tartrate 25mg BID Echocardiogram revealed an EF of 5560 percent, moderate aortic stenosis peak/mean gradient of 46/25 mmHg, moderate mitral regurgitation, mild tricuspid regurgitation, small pericardial effusion near RV We will not start anticoagulation at this time. From a cardiology perspective patient stable to be discharged home later today if heart rates are controlled. Patient will follow up outpatient with Dr. Serrano Nurse practitioner note has been reviewed by physician. Signing provider agrees with the documented findings, assessment, and plan of care. Past Medical History Past Medical History: Atrial Fibrillation, GERD/Reflux, Renal Disease Additional Past Medical History / Comment(s): dialysis, diverticulitis History of Any Multi-Drug Resistant Organisms: None Reported Additional Past Surgical History / Comment(s): fistula placement Past Psychological History: No Psychological Hx Reported Smoking Status: Never smoker Past Alcohol Use History: None Reported Past Drug Use History: None Reported - Past Family History Family Family Medical History: No Reported History Mother Family Medical History: Fibromyalgia, Osteoarthritis (OA) Additional Family Medical History / Comment(s): Lupus Medications and Allergies Home Medications Medication Instructions Recorded Confirmed Type ALPRAZolam [Xanax] 0.5 mg PO HS 12/18/17 04/25/21 History Cyclosporine, Modified [Gengraf] 25 mg PO BID 12/18/17 04/25/21 History Levothyroxine Sodium [Synthroid] 50 mcg PO DAILY 12/18/17 04/25/21 History Montelukast [Singulair] 10 mg PO HS 12/18/17 04/25/21 History allopurinoL [Zyloprim] 100 mg PO DAILY 12/18/17 04/25/21 History Cholecalciferol [Vitamin D3 (25 50 mcg PO Q48H 04/25/21 04/25/21 History Mcg = 1000 Iu)] Magnesium Oxide [Magox 400] 400 mg PO DAILY 04/25/21 04/25/21 History [place]-3 Fatty Acids [[place]-3] 1,000 mg PO DAILY 04/25/21 04/25/21 History predniSONE 10 mg PO DAILY 04/25/21 04/25/21 History Allergies Allergy/AdvReac Type Severity Reaction Status Date / Time codeine Allergy Rash/Hives Verified 04/25/21 22:58 cyclobenzaprine Allergy Rash/Hives Verified 04/25/21 22:58 [From Flexeril] diphenhydramine Allergy Anaphylaxis Verified 04/25/21 22:58 [From Benadryl] hydromorphone [From Dilaudid] Allergy Rash/Hives Verified 04/25/21 22:58 hydroxyzine Allergy Anaphylaxis Verified 04/25/21 22:58 Iodinated Contrast Media Allergy Anaphylaxis Verified 04/25/21 22:58 [Iodinated Contrast- Oral and IV Dye] latex Allergy Rash/Hives Verified 04/25/21 22:58 pantoprazole [From Protonix] Allergy Anaphylaxis Verified 04/25/21 22:58 Penicillins Allergy Rash/Hives Verified 04/25/21 22:58 potassium chloride Allergy Rash/Hives Verified 04/25/21 22:58 pregabalin [From Lyrica] Allergy Anaphylaxis Verified 04/25/21 22:58 sevelamer Allergy Rash/Hives Verified 04/25/21 22:58 warfarin [From Coumadin] Allergy Anaphylaxis Verified 04/25/21 22:58 acetaminophen [From Vicodin] AdvReac Nausea & Verified 04/25/21 22:58 Vomiting aripiprazole [From Abilify] AdvReac Abdominal Verified 04/25/21 22:58 Pain aztreonam AdvReac Unknown Verified 04/25/21 22:58 calcitriol AdvReac Unknown Verified 04/25/21 22:58 cefadroxil AdvReac Unknown Verified 04/25/21 22:58 enalapril AdvReac Unknown Verified 04/25/21 22:58 hydrocodone [From Vicodin] AdvReac Nausea & Verified 04/25/21 22:58 Vomiting Influenza Virus Vaccines AdvReac Unknown Verified 04/25/21 22:58 levofloxacin [From Levaquin] AdvReac Abdominal Verified 04/25/21 22:58 Pain meloxicam [From Mobic] AdvReac Abdominal Verified 04/25/21 22:58 Pain morphine AdvReac Unknown Verified 04/25/21 22:58 propoxyphene AdvReac Unknown Verified 04/25/21 22:58 Sulfa (Sulfonamide AdvReac Vomiting Verified 04/25/21 22:58 Antibiotics) tramadol AdvReac Unknown Verified 04/25/21 22:58 Physical Exam Vitals: Vital Signs Temp Pulse Resp BP Pulse Ox 04/26/21 05:54 76 18 97 04/26/21 03:12 91 18 120/99 95 04/26/21 01:17 99 18 96 04/25/21 21:51 81 18 143/94 95 04/25/21 19:42 98.4 F 100 20 118/74 95 Intake and Output 04/25/21 04/25/21 04/26/21 14:59 22:59 06:59 Other: Weight 80.739 kg Results 04/26/21 05:50 04/26/21 05:50 Cardiac Enzymes 04/25/21 04/25/21 04/25/21 Range/Units 20:36 20:36 23:34 AST 29 (17-59) U/L Troponin I 0.049 H* 0.050 H* (0.000-0.034) ng/mL 04/26/21 04/26/21 Range/Units 03:22 05:50 AST 30 (17-59) U/L Troponin I 0.048 H* (0.000-0.034) ng/mL Coagulation 04/25/21 04/26/21 Range/Units 20:36 05:50 PT 10.4 (9.0-12.0) sec APTT 26.7 112.8 H* (22.0-30.0) sec CBC 04/25/21 04/26/21 Range/Units 20:36 05:50 WBC 2.6 L 2.5 L (3.8-10.6) k/uL RBC 2.60 L 2.68 L (4.30-5.90) m/uL Hgb 8.5 L 8.8 L (13.0-17.5) gm/dL Hct 26.2 L 27.3 L (39.0-53.0) % Plt Count 124 L 142 L (150-450) k/uL Comprehensive Metabolic Panel 04/25/21 04/26/21 Range/Units 20:36 05:50 Sodium 125 L 127 L (137-145) mmol/L Potassium 4.3 4.0 (3.5-5.1) mmol/L Chloride 91 L 92 L (98-107) mmol/L Carbon Dioxide 27 26 (22-30) mmol/L BUN 44 H 50 H (9-20) mg/dL Creatinine 8.67 H* 9.74 H* (0.66-1.25) mg/dL Glucose 130 H 91 (74-99) mg/dL Calcium 9.3 9.6 (8.4-10.2) mg/dL AST 29 30 (17-59) U/L ALT 20 19 (4-49) U/L Alkaline Phosphatase 87 92 (38-126) U/L Total Protein 5.5 L 6.1 L (6.3-8.2) g/dL Albumin 3.1 L 3.4 L (3.5-5.0) g/dL Current Medications Generic Name Dose Route Start Last Admin Trade Name Freq PRN Reason Stop Dose Admin Allopurinol 100 mg 04/26/21 09:00 Allopurinol 100 Mg Tab PO DAILY BASIL Alprazolam 0.5 mg 04/26/21 21:00 Alprazolam 0.5 Mg Tab PO HS BASIL Heparin Sodium (Porcine) 0 unit 04/25/21 21:50 Heparin Sodium 1,000 Un/Ml (10ml Vl) IV PER PROTOCOL PRN Low PTT Protocol Heparin Sodium/Sodium Chloride 250 mls @ 14.533 mls/hr 04/25/21 22:00 04/25/21 22:24 25,000 unit/ Sodium Chloride IV 18 units/kg/hr .[id number] BASIL 14.533 mls/hr Administration Protocol 18 UNITS/KG/HR Levothyroxine Sodium 50 mcg 04/26/21 06:30 04/26/21 06:28 Levothyroxine 50 Mcg Tab PO 50 mcg DAILY@0630 BASIL Administration Magnesium Oxide 400 mg 04/26/21 09:00 Magnesium Oxide 400 Mg Tab PO DAILY BASIL Montelukast Sodium 10 mg 04/26/21 21:00 Montelukast 10 Mg Tab PO HS [facility] Naloxone HCl 0.2 mg 04/25/21 22:14 Naloxone 0.4 Mg/Ml 1 Ml Vial IV Q2M PRN Opioid Reversal Prednisone 10 mg 04/26/21 09:00 Prednisone 10 Mg Tab PO DAILY [facility] Intake and Output 04/25/21 04/25/21 04/26/21 14:59 22:59 06:59 Other: Weight 80.739 kg Patient Weight 04/26/21 06:59 Weight 80.739 kg 04/26/21 05:50 04/26/21 05:50
[2021-04-26] MEDS ORDERED: ALPRAZolam 0.5 MG TAB PO SCH (21:00)
[2021-04-26] MEDS ORDERED: MONTELUKAST 10 MG TAB PO SCH (21:00)
== END 2021-04-26 14:25 | disposition left against medical advice (07) | DRG 308 ==
LOC: EC 18:37 → 3SCARD 22:14
PROVIDERS: ADMIT Internal Medicine; ATTEND Internal Medicine
DX: I48.0 Paroxysmal atrial fibrillation (principal); N18.6 End stage renal disease; E87.1 Hypo-osmolality and hyponatremia; J90 Pleural effusion, not elsewhere classified; Z94.0 Kidney transplant status; D53.9 Nutritional anemia, unspecified; D69.6 Thrombocytopenia, unspecified; E03.9 Hypothyroidism, unspecified; E87.6 Hypokalemia; E87.70 Fluid overload, unspecified; I08.0 Rheumatic disorders of both mitral and aortic valves; K21.9 Gastro-esophageal reflux disease without esophagitis; F41.9 Anxiety disorder, unspecified; Z20.822 Contact with and (suspected) exposure to COVID-19; Z79.890 Hormone replacement therapy; Z79.899 Other long term (current) drug therapy; Z91.041 Radiographic dye allergy status; Z88.8 Allergy status to other drugs, medicaments and biological substances; Z99.2 Dependence on renal dialysis; Z88.0 Allergy status to penicillin; Z91.040 Latex allergy status; R77.8 Other specified abnormalities of plasma proteins
CPT/HCPCS: 36415; 71046; 80053; 83605; 83880; 84484; 85025; 85379; 85610; 85730; 87635; 93005; 93306; 93970; 99291

== ENCOUNTER 2021-05-08 12:44 | Inpatient (IN) | payer MEDICARE, OTHER ==
--- NOTE | 2021-05-08 14:39 | ED ---
General Adult HPI - General Chief complaint: Recheck/Abnormal Lab/Rx Stated complaint: dialysis port problem Time Seen by Provider: 05/08/21 14:02 Source: patient, RN notes reviewed Mode of arrival: ambulatory Limitations: no limitations - History of Present Illness Initial comments: 50-year-old male presents emergency Department with chief complaint of positive blood cultures. Patient states he received a phone call today by a physician who revealed though infectious disease stating that he needed additional IV antibiotics. They initially thought that his bacteremia was recovered by Zyvox and cefdinir that he was discharged with. Patient states that he was told that he needs to come back for IV antibiotics concern for dialysis catheter infect ion. Patient states he just feels tired he reports no fever feeling of the room states that he still been doing dialysis at home patient has known history of proximal A. fib. He denies any leg sores denies any significant swelling. - Related Data Home Medications Medication Instructions Recorded Confirmed ALPRAZolam [Xanax] 0.5 mg PO HS 12/18/17 05/03/21 Cyclosporine, Modified [Gengraf] 25 mg PO BID 12/18/17 05/03/21 Levothyroxine Sodium [Synthroid] 50 mcg PO DAILY 12/18/17 05/03/21 Montelukast [Singulair] 10 mg PO HS 12/18/17 05/03/21 allopurinoL [Zyloprim] 100 mg PO DAILY 12/18/17 05/03/21 Cholecalciferol [Vitamin D3 (25 50 mcg PO Q48H 04/25/21 05/03/21 Mcg = 1000 Iu)] Magnesium Oxide [Magox 400] 400 mg PO DAILY 04/25/21 05/03/21 predniSONE 10 mg PO DAILY 04/25/21 05/03/21 Aspirin EC [Ecotrin Low Dose] 324 mg PO DAILY 05/03/21 05/03/21 Previous Rx's Medication Instructions Recorded Cefdinir [Omnicef] 300 mg PO Q12HR 10 Days #20 capsule 05/06/21 Linezolid [Zyvox] 600 mg PO Q12H 10 Days #20 tab 05/06/21 Allergies Allergy/AdvReac Type Severity Reaction Status Date / Time codeine Allergy Rash/Hives Verified 05/08/21 13:21 cyclobenzaprine Allergy Rash/Hives Verified 05/08/21 13:21 [From Flexeril] diphenhydramine Allergy Anaphylaxis Verified 05/08/21 13:21 [From Benadryl] hydromorphone [From Dilaudid] Allergy Rash/Hives Verified 05/08/21 13:21 hydroxyzine Allergy Anaphylaxis Verified 05/08/21 13:21 Iodinated Contrast Media Allergy Anaphylaxis Verified 05/08/21 13:21 [Iodinated Contrast- Oral and IV Dye] latex Allergy Rash/Hives Verified 05/08/21 13:21 pantoprazole [From Protonix] Allergy Anaphylaxis Verified 05/08/21 13:21 Penicillins Allergy Rash/Hives Verified 05/08/21 13:21 potassium chloride Allergy Rash/Hives Verified 05/08/21 13:21 pregabalin [From Lyrica] Allergy Anaphylaxis Verified 05/08/21 13:21 sevelamer Allergy Rash/Hives Verified 05/08/21 13:21 warfarin [From Coumadin] Allergy Anaphylaxis Verified 05/08/21 13:21 acetaminophen [From Vicodin] AdvReac Nausea & Verified 05/08/21 13:21 Vomiting aripiprazole [From Abilify] AdvReac Abdominal Verified 05/08/21 13:21 Pain aztreonam AdvReac Unknown Verified 05/08/21 13:21 calcitriol AdvReac Unknown Verified 05/08/21 13:21 cefadroxil AdvReac Unknown Verified 05/08/21 13:21 enalapril AdvReac Unknown Verified 05/08/21 13:21 hydrocodone [From Vicodin] AdvReac Nausea & Verified 05/08/21 13:21 Vomiting Influenza Virus Vaccines AdvReac Unknown Verified 05/08/21 13:21 levofloxacin [From Levaquin] AdvReac Abdominal Verified 05/08/21 13:21 Pain meloxicam [From Mobic] AdvReac Abdominal Verified 05/08/21 13:21 Pain morphine AdvReac Unknown Verified 05/08/21 13:21 propoxyphene AdvReac Unknown Verified 05/08/21 13:21 Sulfa (Sulfonamide AdvReac Vomiting Verified 05/08/21 13:21 Antibiotics) tramadol AdvReac Unknown Verified 05/08/21 13:21 Review of Systems ROS Statement: Those systems with pertinent positive or pertinent negative responses have been documented in the HPI. ROS Other: All systems not noted in ROS Statement are negative. Past Medical History Past Medical History: Atrial Fibrillation, GERD/Reflux, Renal Disease, Thyroid Disorder Additional Past Medical History / Comment(s): dialysis M/W/T//FRI, diverticulitis , blind, shingles in February History of Any Multi-Drug Resistant Organisms: None Reported Additional Past Surgical History / Comment(s): fistula placement , thyroidectomy Additional Past Anesthesia/Blood Transfusion Reaction / Comment(s): Pt has his surgery done with local anesthetics d/t general anesthesia causing facial edema and difficulty waking. Past Psychological History: No Psychological Hx Reported Smoking Status: Never smoker Past Alcohol Use History: None Reported Past Drug Use History: None Reported - Past Family History Mother Family Medical History: Fibromyalgia, Osteoarthritis (OA) Additional Family Medical History / Comment(s): Lupus Family Family Medical History: No Reported History Additional Family Medical History / Comment(s): ETOH abuse General Exam Limitations: no limitations Head exam: Present: atraumatic, normocephalic, normal inspection Eye exam: Present: normal appearance, PERRL, EOMI. Absent: scleral icterus, conjunctival injection, periorbital swelling ENT exam: Present: normal exam, normal oropharynx, mucous membranes moist Neck exam: Present: normal inspection, full ROM. Absent: tenderness, meningismus, lymphadenopathy Respiratory exam: Present: normal lung sounds bilaterally, other (Right anterior chest wall catheter noted). Absent: respiratory distress, wheezes, rales, rhonchi, stridor Cardiovascular Exam: Present: tachycardia, irregular rhythm, normal heart sounds. Absent: normal rhythm, systolic murmur, diastolic murmur, rubs, gallop, clicks GI/Abdominal exam: Present: soft, normal bowel sounds. Absent: distended, tenderness, guarding, rebound, rigid Back exam: Absent: CVA tenderness (R), CVA tenderness (L) Neurological exam: Present: alert, oriented X3 Skin exam: Present: warm, dry, intact, normal color. Absent: rash Course Vital Signs 05/08/21 05/08/21 13:15 13:55 Temperature 99 F 98.8 F Pulse Rate 118 H 83 Respiratory 20 14 Rate Blood Pressure 82/47 95/68 O2 Sat by Pulse 99 98 Oximetry Medical Decision Making - Medical Decision Making Case discussed with Dr. Canales who accepts admission and did have a discussion with family that he needs his dialysis catheter exchange secondary to bacteremia concern for infection low-lying. Patient agrees to have on-call vascular surgeon Dr. Keys or Dr. Michaela nash. - Lab Data Result diagrams: 05/08/21 14:15 Lab Results 05/08/21 Range/Units 14:15 WBC 3.1 L (3.8-10.6) k/uL RBC 2.83 L (4.30-5.90) m/uL Hgb 9.2 L (13.0-17.5) gm/dL Hct 29.0 L (39.0-53.0) % MCV 102.5 H D (80.0-100.0) fL MCH 32.4 (25.0-35.0) pg MCHC 31.6 (31.0-37.0) g/dL RDW 15.1 (11.5-15.5) % Plt Count 135 L (150-450) k/uL MPV 7.5 Neutrophils % 83 % Lymphocytes % 8 % Monocytes % 5 % Eosinophils % 2 % Basophils % 1 % Neutrophils # 2.6 (1.3-7.7) k/uL Lymphocytes # 0.3 L (1.0-4.8) k/uL Monocytes # 0.2 (0-1.0) k/uL Eosinophils # 0.1 (0-0.7) k/uL Basophils # 0.0 (0-0.2) k/uL Hypochromasia Moderate Macrocytosis Slight Disposition Clinical Impression: Positive blood culture, Bacteremia, ESRD on dialysis Disposition: ADMITTED IP TO THIS HOSP Condition: Fair Referrals: Mychal Jerome DO [Primary Care Provider] - 1-2 days
[2021-05-08] MEDS ORDERED: MEROPENEM 2 GM in SODIUM CHLORIDE 0.9% 100 ML IVPB STA (14:47)
[2021-05-08 14:48] LABS: Basophils % (A) 1 %; Eosinophils # (A) 0.1 k/uL (0-0.7); Eosinophils % (A) 2 %; HGB 9.2 gm/dL (13.0-17.5); Hypochromasia Moderate; Lymphocytes # (A) 0.3 k/uL (1.0-4.8); Lymphocytes % (A) 8 %; MCH 32.4 pg (25.0-35.0); MCHC 31.6 g/dL (31.0-37.0); MCV 102.5 fL (80.0-100.0); Macrocytosis Slight; Mean Platelet Volume 7.5; Monocytes # (A) 0.2 k/uL (0-1.0); Monocytes % (A) 5 %; Neutrophils # (A) 2.6 k/uL (1.3-7.7); Neutrophils % (A) 83 %; Platelet Count 135 k/uL (150-450); RBC 2.83 m/uL (4.30-5.90); RDW 15.1 % (11.5-15.5); WBC 3.1 k/uL (3.8-10.6)
[2021-05-08] MEDS ORDERED: NALOXONE 0.4 MG/ML 1 ML VIAL IV PRN ×2 (14:52→15:08)
[2021-05-08 14:53] LABS: Calcium 9.4 mg/dL (8.4-10.2); Potassium 3.2 mmol/L (3.5-5.1); Total Bilirubin 0.7 mg/dL (0.2-1.3); Total Protein 5.4 g/dL (6.3-8.2)
[2021-05-08] MEDS ORDERED: RX INFO: IV CONTRAST WAS GIVEN 1 EACH MISC MISCELLANE PRN (15:05)
[2021-05-08] MEDS ORDERED: BARIUM SULFATE 450 ML ORAL.SUSP BOTTLE PO PRN (15:05)
[2021-05-08] MEDS ORDERED: ACETAMINOPHEN TAB 325 MG TAB PO PRN (15:08)
[2021-05-08] MEDS: HEPARIN SODIUM,PORCINE/PF 5,000 UNIT/0.5 ML SYRINGE SQ SCH ×2 (16:10→22:19)
--- NOTE | 2021-05-08 16:46 | P.HPIM ---
History of Present Illness H&P Date: 05/08/21 Chief Complaint: Bacteremia 50-year-old man with medical history of end-stage renal disease with permacath status post failed renal transplant, anemia of chronic disease, immunosuppressed on prednisone with recent discontinuation of cyclosporine and CellCept, hypothyroidism, gout, paroxysmal atrial fibrillation with chads vasc of 1 presented for follow-up of bacteremia. Patient was recently hospitalized here from 05/03-05/06 after having been identified at an outside facility to have gram- positive bacteremia where he initially presented for fever and tachycardia. Patient has multiple antibiotic ALLERGIES, but ultimately with consultation with ID, patient was treated with meropenem IV. Patient was counseled that given the gram-positive bacteremia status, he would likely need IV antibiotics and his dialysis catheter exchanged. Initially, patient had concerns that catheter was placed at [facility], and that patient would prefer to have catheter addressed at [facility]. Despite appropriate counseling by primary team, ID, patient was discharged on oral antibiotics per patient's wishes on 05/06. I received a call from this patient's pharmacist today regarding a medication that was prescribed on discharge which the patient was ALLERGIC to. This patient was prescribed cefdinir, but ALLERGIC to cephalosporins. After chart reviewing the case, I noted the patient is still bacteremic with repeat blood culture here on 05/03 showing acid-fast bacilli. I discussed this case with infectious disease, who agreed that patient would not get better on oral antibiotics and also needed source control with dialysis catheter exchange. In light of this information, I called the pharmacist back to inform him about the issue. Afterwards, I called the patient to notify him of the updated blood culture result, and highly recommended that he go back to the hospital where he can be resumed on IV antibiotics as well as get source control with dialysis catheter exchange. Patient and mother indicated to me that there plan at this point is to go to [facility] in order to be started on IV antibiotics, and obtain dialysis catheter exchange. I called [facility] to leave a message for the ER attending regarding this issue, and also left my phone number if there were any further questions. However, in the interim, patient called [facility] Silva who apparently told him that they would not be able to address his issues quickly as if he came to [place]. Upon my interview with the patient in the emergency room, the patient was amenable to having his catheter exchange while he was here, being placed on the appropriate antibiotics. Since discharge on 05/06, patient has not had any further episodes of fevers, chills, palpitations. However, he did get lightheaded and borderline hypotensive after having some fluid removed and his last dialysis session for his mom was at bedside and participates in the interview. Patient presently denies fevers, chills, nausea, vomiting, chest pain, palpitations, syncope, presyncope, cough, dyspnea, abdominal pain, constipation, diarrhea, dysuria, dyschezia, numbness/weakness of extremities. Review of Systems All Systems reviewed and pertinent positives and negatives noted in HPI, all other symptoms are negative Past Medical History Past Medical History: Atrial Fibrillation, GERD/Reflux, Renal Disease, Thyroid Disorder Additional Past Medical History / Comment(s): dialysis M//T//FRI, d iverticulitis , blind, shingles in February History of Any Multi-Drug Resistant Organisms: None Reported Additional Past Surgical History / Comment(s): fistula placement , thyroidectomy Additional Past Anesthesia/Blood Transfusion Reaction / Comment(s): Pt has his surgery done with local anesthetics d/t general anesthesia causing facial edema and difficulty waking. Past Psychological History: No Psychological Hx Reported Smoking Status: Never smoker Past Alcohol Use History: None Reported Past Drug Use History: None Reported - Past Family History Mother Family Medical History: Fibromyalgia, Osteoarthritis (OA) Additional Family Medical History / Comment(s): Lupus Family Family Medical History: No Reported History Additional Family Medical History / Comment(s): ETOH abuse Medications and Allergies Home Medications Medication Instructions Recorded Confirmed Type ALPRAZolam [Xanax] 0.5 mg PO HS 12/18/17 05/08/21 History Levothyroxine Sodium [Synthroid] 50 mcg PO DAILY 12/18/17 05/08/21 History Montelukast [Singulair] 10 mg PO HS 12/18/17 05/08/21 History allopurinoL [Zyloprim] 100 mg PO DAILY 12/18/17 05/08/21 History Cholecalciferol [Vitamin D3 (25 50 mcg PO Q48H 04/25/21 05/08/21 History Mcg = 1000 Iu)] Magnesium Oxide [Magox 400] 400 mg PO DAILY 04/25/21 05/08/21 History predniSONE 10 mg PO DAILY 04/25/21 05/08/21 History Aspirin EC [Ecotrin Low Dose] 324 mg PO DAILY 05/03/21 05/08/21 History Epoetin Martin [Epogen] 9,000 unit SQ MOTUSA 05/08/21 05/08/21 History Metoprolol Tartrate [Lopressor] 12.5 mg PO DAILY PRN 05/08/21 05/08/21 History Allergies Allergy/AdvReac Type Severity Reaction Status Date / Time codeine Allergy Rash/Hives Verified 05/08/21 15:34 cyclobenzaprine Allergy Rash/Hives Verified 05/08/21 15:34 [From Flexeril] diphenhydramine Allergy Anaphylaxis Verified 05/08/21 15:34 [From Benadryl] hydromorphone [From Dilaudid] Allergy Rash/Hives Verified 05/08/21 15:34 hydroxyzine Allergy Anaphylaxis Verified 05/08/21 15:34 Iodinated Contrast Media Allergy Anaphylaxis Verified 05/08/21 15:34 [Iodinated Contrast- Oral and IV Dye] latex Allergy Rash/Hives Verified 05/08/21 15:34 pantoprazole [From Protonix] Allergy Anaphylaxis Verified 05/08/21 15:34 Penicillins Allergy Rash/Hives Verified 05/08/21 15:34 potassium chloride Allergy Rash/Hives Verified 05/08/21 15:34 pregabalin [From Lyrica] Allergy Anaphylaxis Verified 05/08/21 15:34 sevelamer Allergy Rash/Hives Verified 05/08/21 15:34 warfarin [From Coumadin] Allergy Anaphylaxis Verified 05/08/21 15:34 acetaminophen [From Vicodin] AdvReac Nausea & Verified 05/08/21 15:34 Vomiting aripiprazole [From Abilify] AdvReac Abdominal Verified 05/08/21 15:34 Pain aztreonam AdvReac Unknown Verified 05/08/21 15:34 calcitriol AdvReac Unknown Verified 05/08/21 15:34 cefadroxil AdvReac Unknown Verified 05/08/21 15:34 enalapril AdvReac Unknown Verified 05/08/21 15:34 hydrocodone [From Vicodin] AdvReac Nausea & Verified 05/08/21 15:34 Vomiting Influenza Virus Vaccines AdvReac Unknown Verified 05/08/21 15:34 levofloxacin [From Levaquin] AdvReac Abdominal Verified 05/08/21 15:34 Pain meloxicam [From Mobic] AdvReac Abdominal Verified 05/08/21 15:34 Pain morphine AdvReac Unknown Verified 05/08/21 15:34 propoxyphene AdvReac Unknown Verified 05/08/21 15:34 Sulfa (Sulfonamide AdvReac Vomiting Verified 05/08/21 15:34 Antibiotics) tramadol AdvReac Unknown Verified 05/08/21 15:34 Physical Exam Osteopathic Statement: *. No significant issues noted on an osteopathic structural exam other than those noted in the History and Physical/Consult. Vitals: Vital Signs Temp Pulse Resp BP Pulse Ox 05/08/21 16:20 97.8 F 117 H 14 110/73 95 05/08/21 13:55 98.8 F 83 14 95/68 98 05/08/21 13:15 99 F 118 H 20 82/47 99 Intake and Output 05/08/21 05/08/21 05/08/21 06:59 14:59 22:59 Other: Weight 83.461 kg Gen: awake, alert HEENT: normocephalic, atraumatic, good hearing acuity, moist mucous membranes Resp: good air exchange, breathing comfortably with no accessory muscle use, clear to auscultation CVS: good distal perfusion x 4, regular rate and rhythm without murmurs GI: soft, NTTP, ND : no SPT, no CVAT, sargent catheter not present MSK: no pitting edema, no clubbing Neuro: non-focal, moving all extremities Psych: cooperative, euthymic mood Results CBC & Chem 7: 05/08/21 14:15 05/08/21 14:15 Labs: Abnormal Lab Results - Last 24 Hours (Table) 05/08/21 05/08/21 Range/Units 14:15 14:15 WBC 3.1 L (3.8-10.6) k/uL RBC 2.83 L (4.30-5.90) m/uL Hgb 9.2 L (13.0-17.5) gm/dL Hct 29.0 L (39.0-53.0) % MCV 102.5 H D (80.0-100.0) fL Plt Count 135 L (150-450) k/uL Lymphocytes # 0.3 L (1.0-4.8) k/uL Sodium 131 L (137-145) mmol/L Potassium 3.2 L (3.5-5.1) mmol/L Chloride 93 L (98-107) mmol/L BUN 25 H (9-20) mg/dL Creatinine 5.49 H (0.66-1.25) mg/dL Glucose 104 H (74-99) mg/dL Total Protein 5.4 L (6.3-8.2) g/dL Albumin 3.0 L (3.5-5.0) g/dL Assessment and Plan Assessment: Gram-positive bacteremia with acid-fast bacilli, concerning for Nocardia End-stage renal disease status post failed kidney transplant Immunocompromised state -Admit to inpatient, telemetry -ID consult for bacteremia -Vascular consult for catheter exchange -Nephrology consult for end-stage renal disease management -Meropenem 500 mg daily, which is the renal dose -Repeat blood cultures, pending -Follow up identification and sensitivities of blood culture on 05/03 -Continue to hold cyclosporine -Continue prednisone Paroxysmal atrial fibrillation, rate controlled -not on AC due to low CHADS-VASc of 1 -continue metoprolol Anemia of chronic disease Hypothyroidism ALLERGIC rhinitis Gout -Home medications reviewed and reconciled Patient is a full code DVT prophylaxis with heparin 3 times a day
[2021-05-08] MEDS: METOPROLOL TARTRATE 12.5 MG TAB PO SCH (22:14)
[2021-05-08] MEDS: MONTELUKAST 10 MG TAB PO SCH (22:18)
[2021-05-08] MEDS: ALPRAZolam 0.5 MG TAB PO SCH (22:18)
[2021-05-09] MEDS: METOPROLOL TARTRATE 12.5 MG TAB PO SCH ×3 (01:03→20:14)
[2021-05-09] MEDS: LEVOTHYROXINE 50 MCG TAB PO SCH (06:00)
[2021-05-09] MEDS: MAGNESIUM OXIDE 400 MG TAB PO SCH (08:58)
[2021-05-09] MEDS: HEPARIN SODIUM,PORCINE/PF 5,000 UNIT/0.5 ML SYRINGE SQ SCH ×4 (08:58→23:11)
[2021-05-09] MEDS: allopurinoL 100 MG TAB PO SCH (08:58)
[2021-05-09] MEDS: predniSONE 10 MG TAB PO SCH (08:58)
[2021-05-09] MEDS ORDERED: MEROPENEM 500 MG in SODIUM CHLORIDE 0.9% 100 ML IVPB SCH (09:00)
[2021-05-09 11:03] LABS: HCT 25.8 % (39.6-50.0); HGB 7.6 g/dL (13.0-17.0); MCH 30.4 pg (27.0-32.0); MCHC 29.5 g/dL (32.0-37.0); MCV 103.2 fL (80.0-97.0); Mean Platelet Volume 10.6 fL (9.5-12.2); NRBC Per 100 WBC 0 /100 WBCS (0.0-0.0); Platelet Count 117 X 10*3/uL (140-440); RDW 14.5 % (11.5-14.5); WBC 2.13 X 10*3/uL (4.50-10.00)
--- NOTE | 2021-05-09 11:06 | P.GSCN ---
History of Present Illness Consult date: 05/09/21 Reason for Consult: Hemodialysis catheter exchange Requesting physician: Mehran Canales History of present illness: This is a 50-year-old male with multiple comorbidities including atrial fibrillation, GERD, end-stage renal disease on hemodialysis with failed renal transplant who is immunocompromised, anemia of chronic disease, gout and hypothyroidism. Patient came into the emergency department as directed by in ternal medicine for positive blood cultures. Patient apparently had his last a tunneled dialysis catheter placed in the right IJ at [facility] approximately 4-5 months ago. He was recently hospitalized with bacteremia and sent home with oral antibiotics, however was later seen that he would require IV antibiotics and patient was called at home and told to come in for readmission for IV antibiotics. Vascular surgery has been consulted as they believe that the source of bacteremia is related to his HD catheter and would like it removed and exchanged on one side cultures are negative. Patient denies any recent fevers or chills. He denies any pain. He has had grafts on the left arm that are no longer functioning. His last blood culture was positive for acid-fast bacilli done on 05/03/2021 Review of Systems 14 point review of systems was completed and all pertinent positives and negatives as stated in the HPI Past Medical History Past Medical History: Atrial Fibrillation, GERD/Reflux, Renal Disease, Thyroid Disorder Additional Past Medical History / Comment(s): home dialysis M/T//SAT, diverticulitis, blind, shingles in February History of Any Multi-Drug Resistant Organisms: None Reported Additional Past Surgical History / Comment(s): left forearm fistula placement from childhood, does not work; thyroidectomy Past Anesthesia/Blood Transfusion Reactions: Previous Problems w/ Anesthesia Additional Past Anesthesia/Blood Transfusion Reaction / Comm: Pt has his surgery done with local anesthetics d/t general anesthesia causing facial edema and difficulty waking. Past Psychological History: No Psychological Hx Reported Additional Psychological History / Comment(s): Pt resides with his mother who is his caregiver. Pt ambulates without device/he memorizes where furniture is placed. Mother performs hemodialysis 4 days a week. 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 No home care. Smoking Status: Never smoker Past Alcohol Use History: None Reported Past Drug Use History: None Reported - Past Family History Mother Family Medical History: Fibromyalgia, Osteoarthritis (OA) Additional Family Medical History / Comment(s): Lupus Family Family Medical History: No Reported History Additional Family Medical History / Comment(s): ETOH abuse Medications and Allergies Home Medications Medication Instructions Recorded Confirmed Type ALPRAZolam [Xanax] 0.5 mg PO HS 12/18/17 05/08/21 History Levothyroxine Sodium [Synthroid] 50 mcg PO DAILY 12/18/17 05/08/21 History Montelukast [Singulair] 10 mg PO HS 12/18/17 05/08/21 History allopurinoL [Zyloprim] 100 mg PO DAILY 12/18/17 05/08/21 History Cholecalciferol [Vitamin D3 (25 50 mcg PO Q48H 04/25/21 05/08/21 History Mcg = 1000 Iu)] Magnesium Oxide [Magox 400] 400 mg PO DAILY 04/25/21 05/08/21 History predniSONE 10 mg PO DAILY 04/25/21 05/08/21 History Aspirin EC [Ecotrin Low Dose] 324 mg PO DAILY 05/03/21 05/08/21 History Epoetin Martin [Epogen] 9,000 unit SQ MOTUSA 05/08/21 05/08/21 History Metoprolol Tartrate [Lopressor] 12.5 mg PO DAILY PRN 05/08/21 05/08/21 History Allergies Allergy/AdvReac Type Severity Reaction Status Date / Time codeine Allergy Rash/Hives Verified 05/08/21 15:34 cyclobenzaprine Allergy Rash/Hives Verified 05/08/21 15:34 [From Flexeril] diphenhydramine Allergy Anaphylaxis Verified 05/08/21 15:34 [From Benadryl] hydromorphone [From Dilaudid] Allergy Rash/Hives Verified 05/08/21 15:34 hydroxyzine Allergy Anaphylaxis Verified 05/08/21 15:34 Iodinated Contrast Media Allergy Anaphylaxis Verified 05/08/21 15:34 [Iodinated Contrast- Oral and IV Dye] latex Allergy Rash/Hives Verified 05/08/21 15:34 pantoprazole [From Protonix] Allergy Anaphylaxis Verified 05/08/21 15:34 Penicillins Allergy Rash/Hives Verified 05/08/21 15:34 potassium chloride Allergy Rash/Hives Verified 05/08/21 15:34 pregabalin [From Lyrica] Allergy Anaphylaxis Verified 05/08/21 15:34 sevelamer Allergy Rash/Hives Verified 05/08/21 15:34 warfarin [From Coumadin] Allergy Anaphylaxis Verified 05/08/21 15:34 acetaminophen [From Vicodin] AdvReac Nausea & Verified 05/08/21 15:34 Vomiting aripiprazole [From Abilify] AdvReac Abdominal Verified 05/08/21 15:34 Pain aztreonam AdvReac Unknown Verified 05/08/21 15:34 calcitriol AdvReac Unknown Verified 05/08/21 15:34 cefadroxil AdvReac Unknown Verified 05/08/21 15:34 enalapril AdvReac Unknown Verified 05/08/21 15:34 hydrocodone [From Vicodin] AdvReac Nausea & Verified 05/08/21 15:34 Vomiting Influenza Virus Vaccines AdvReac Unknown Verified 05/08/21 15:34 levofloxacin [From Levaquin] AdvReac Abdominal Verified 05/08/21 15:34 Pain meloxicam [From Mobic] AdvReac Abdominal Verified 05/08/21 15:34 Pain morphine AdvReac Unknown Verified 05/08/21 15:34 propoxyphene AdvReac Unknown Verified 05/08/21 15:34 Sulfa (Sulfonamide AdvReac Vomiting Verified 05/08/21 15:34 Antibiotics) tramadol AdvReac Unknown Verified 05/08/21 15:34 Surgical - Exam Vital Signs Temp Pulse Resp BP Pulse Ox 99 F 118 H 20 82/47 99 05/08/21 13:15 05/08/21 13:15 05/08/21 13:15 05/08/21 13:15 05/08/21 13:15 General appearance: The patient is alert, oriented, appears in no acute distress. HET: Head is normocephalic and atraumatic. Neck: Supple without lymphadenopathy. Trachea midline. Heart: S1 S2. Regular rate and rhythm. Lungs: Clear to auscultation bilaterally. Chest wall: Right tunneled catheter intact with dressing, no surrounding erythema noted. Abdomen: Soft, nontender, nondistended. Extremities: Normal skin color and turgor. Palpable radial pulses bilaterally. Neurological: No focal deficits. Alert and oriented 3. Results - Labs 05/08/21 14:15 05/08/21 14:15 Abnormal Lab Results - Last 24 Hours (Table) 05/08/21 05/08/21 Range/Units 14:15 14:15 WBC 3.1 L (3.8-10.6) k/uL RBC 2.83 L (4.30-5.90) m/uL Hgb 9.2 L (13.0-17.5) gm/dL Hct 29.0 L (39.0-53.0) % MCV 102.5 H D (80.0-100.0) fL Plt Count 135 L (150-450) k/uL Lymphocytes # 0.3 L (1.0-4.8) k/uL Sodium 131 L (137-145) mmol/L Potassium 3.2 L (3.5-5.1) mmol/L Chloride 93 L (98-107) mmol/L BUN 25 H (9-20) mg/dL Creatinine 5.49 H (0.66-1.25) mg/dL Glucose 104 H (74-99) mg/dL Total Protein 5.4 L (6.3-8.2) g/dL Albumin 3.0 L (3.5-5.0) g/dL Diabetes panel 05/08/21 Range/Units 14:15 Sodium 131 L (137-145) mmol/L Potassium 3.2 L (3.5-5.1) mmol/L Chloride 93 L (98-107) mmol/L Carbon Dioxide 30 (22-30) mmol/L BUN 25 H (9-20) mg/dL Creatinine 5.49 H (0.66-1.25) mg/dL Glucose 104 H (74-99) mg/dL Calcium 9.4 (8.4-10.2) mg/dL AST 33 (17-59) U/L ALT 11 (4-49) U/L Alkaline Phosphatase 98 (38-126) U/L Total Protein 5.4 L (6.3-8.2) g/dL Albumin 3.0 L (3.5-5.0) g/dL Calcium panel 05/08/21 Range/Units 14:15 Calcium 9.4 (8.4-10.2) mg/dL Albumin 3.0 L (3.5-5.0) g/dL Pituitary panel 05/08/21 Range/Units 14:15 Sodium 131 L (137-145) mmol/L Potassium 3.2 L (3.5-5.1) mmol/L Chloride 93 L (98-107) mmol/L Carbon Dioxide 30 (22-30) mmol/L BUN 25 H (9-20) mg/dL Creatinine 5.49 H (0.66-1.25) mg/dL Glucose 104 H (74-99) mg/dL Calcium 9.4 (8.4-10.2) mg/dL Adrenal panel 05/08/21 Range/Units 14:15 Sodium 131 L (137-145) mmol/L Potassium 3.2 L (3.5-5.1) mmol/L Chloride 93 L (98-107) mmol/L Carbon Dioxide 30 (22-30) mmol/L BUN 25 H (9-20) mg/dL Creatinine 5.49 H (0.66-1.25) mg/dL Glucose 104 H (74-99) mg/dL Calcium 9.4 (8.4-10.2) mg/dL Total Bilirubin 0.7 (0.2-1.3) mg/dL AST 33 (17-59) U/L ALT 11 (4-49) U/L Alkaline Phosphatase 98 (38-126) U/L Total Protein 5.4 L (6.3-8.2) g/dL Albumin 3.0 L (3.5-5.0) g/dL Assessment and Plan Assessment: 1. End-stage renal disease on hemodialysis post kidney transplant 2. Gram-positive Bacteremia with acid-fast bacilli, presumed source hemodialysis catheter 3. Immunocompromised state Plan: 1. Await recommendations from nephrology on timing to remove HD tunneled catheter 2. Continue with recommendations from infectious disease and antibiotics 3. Further recommendations forthcoming per vascular surgeon Thank you for this consultation, we will continue to follow. The impression and plan of care has been dictated as directed. Dr. Jennings I performed a history and examination of this patient, discussed the same with the dictator. I agree with the dictator's note ,documented as a scribe. Any additional findings or plans will be noted.
[2021-05-09 11:20] LABS: Magnesium 2.3 mg/dL (1.5-2.4)
--- NOTE | 2021-05-09 11:41 | P.CONS ---
History of Present Illness - Reason for Consult Consult date: 05/08/21 Bacteremia Requesting physician: Mehran Canales - Chief Complaint Positive blood culture x1 day - History of Present Illness History of Present Illness : Patient is a 50-year male with a past medical history significant for end-stage renal disease failed renal transplant in this patient who did have right subclavian permacatheter for dialysis patient was recently admitted to this facility patient did have positive blood culture with acid-fast bacilli concerning for nocardia and the patient was treated with meropenem because of his multiple antibiotic allergies patient apparently was insisting on going home on Friday and the patient was discharged home by medical team on oral Ceftin and Zyvox, subsequently the patient blood cultures were drawn here came back positive as well the patient was called in and was asked to come back to the hospital Case was discussed with me by the admitting physician patient was started on meropenem blood culture has been obtained and infectious disease was consulted for further management of antibiotic therapy. On today's evaluation there is 05/08/2021, the patient denies having any fever or any chills, the patient is currently breathing comfortably patient denies having any headache no chest pain shortness of breath or cough no abdominal pain no diarrhea Review of system: CONSTITUTIONAL: Positive for weakness denies high-grade fever. EYES: No complaint. ENT: No complaint. RESPIRATORY: No complaint. CARDIOVASCULAR: No complaint. GENITOURINARY: No complaint. GASTROINTESTINAL: No complaint. MUSCULOSKELETAL: No complaint. INTEGUMENTARY : No complaint. PSYCHOLOGIC: No complaint. ENDOCRINE: No complaint. NEUROLOGIC: No complaint. Past medical history : Reviewed, documented below Past surgical history : Reviewed, documented below Social history: Reviewed, documented below Medications: Reviewed, as documented below EXAMINATION: Vital sigans= Reviewed and documented below GENERAL DESCRIPTION: Middle-aged male up in bed, no distress. No tachypnea or accessory muscle of respiration use. HEENT: Shows Pallor , no scleral icterus. Oral mucous membrane is dry. NECK: Trachea central, no thyromegaly. LUNGS: Unlabored breathing. Decreased breath sound at the base. No wheeze or crackle. HEART: S1, S2, regular rate and rhythm. ABDOMEN: Soft, no tenderness , guarding or rigidity EXTREMITIES: No edema feet SKIN: No rash, no masses palpable. NEUROLOGICAL: The patient is awake, alert, oriented x3, mood and affect normal. LABS AND RADIOLOGY: Reviewed results see below Assessment : 1-Patient with positive blood culture showing gram-positive acid- fast bacilli high clinical suspicious for nocardia and more likely permacatheter the source of this infection and the patient do not have any symptoms suggestive of pneumonia patient did have a CT abdominal pelvis that was negative for any colitis or an abscess patient was initially reluctant to the idea of the permacatheter to be taken out however seems to be agreeable to it 2-patient with multiple antibiotic allergies that would limit the number of antibiotics safe to use Plan: 1-blood culture has been repeated today 2-vascular surgery consult for removal of the permacatheter and tip should be sent for culture 3-meropenem dose adjusted to the kidney function while waiting for the culture to finalize We will follow on clinical condition and cultures to further adjust medication if needed Thank you for this consultation we will follow the patient along with you Past Medical History Past Medical History: Atrial Fibrillation, GERD/Reflux, Renal Disease, Thyroid Disorder Additional Past Medical History / Comment(s): dialysis M/W/T//FRI, diverticulitis , blind, shingles in February History of Any Multi-Drug Resistant Organisms: None Reported Additional Past Surgical History / Comment(s): fistula placement , thyroidectomy Additional Past Anesthesia/Blood Transfusion Reaction / Comm: Pt has his surgery done with local anesthetics d/t general anesthesia causing facial edema and di fficulty waking. Past Psychological History: No Psychological Hx Reported Smoking Status: Never smoker Past Alcohol Use History: None Reported Past Drug Use History: None Reported - Past Family History Mother Family Medical History: Fibromyalgia, Osteoarthritis (OA) Additional Family Medical History / Comment(s): Lupus Family Family Medical History: No Reported History Additional Family Medical History / Comment(s): ETOH abuse Medications and Allergies Home Medications Medication Instructions Recorded Confirmed Type ALPRAZolam [Xanax] 0.5 mg PO HS 12/18/17 05/08/21 History Levothyroxine Sodium [Synthroid] 50 mcg PO DAILY 12/18/17 05/08/21 History Montelukast [Singulair] 10 mg PO HS 12/18/17 05/08/21 History allopurinoL [Zyloprim] 100 mg PO DAILY 12/18/17 05/08/21 History Cholecalciferol [Vitamin D3 (25 50 mcg PO Q48H 04/25/21 05/08/21 History Mcg = 1000 Iu)] Magnesium Oxide [Magox 400] 400 mg PO DAILY 04/25/21 05/08/21 History predniSONE 10 mg PO DAILY 04/25/21 05/08/21 History Aspirin EC [Ecotrin Low Dose] 324 mg PO DAILY 05/03/21 05/08/21 History Epoetin Martin [Epogen] 9,000 unit SQ MOTUSA 05/08/21 05/08/21 History Metoprolol Tartrate [Lopressor] 12.5 mg PO DAILY PRN 05/08/21 05/08/21 History Allergies Allergy/AdvReac Type Severity Reaction Status Date / Time codeine Allergy Rash/Hives Verified 05/08/21 15:34 cyclobenzaprine Allergy Rash/Hives Verified 05/08/21 15:34 [From Flexeril] diphenhydramine Allergy Anaphylaxis Verified 05/08/21 15:34 [From Benadryl] hydromorphone [From Dilaudid] Allergy Rash/Hives Verified 05/08/21 15:34 hydroxyzine Allergy Anaphylaxis Verified 05/08/21 15:34 Iodinated Contrast Media Allergy Anaphylaxis Verified 05/08/21 15:34 [Iodinated Contrast- Oral and IV Dye] latex Allergy Rash/Hives Verified 05/08/21 15:34 pantoprazole [From Protonix] Allergy Anaphylaxis Verified 05/08/21 15:34 Penicillins Allergy Rash/Hives Verified 05/08/21 15:34 potassium chloride Allergy Rash/Hives Verified 05/08/21 15:34 pregabalin [From Lyrica] Allergy Anaphylaxis Verified 05/08/21 15:34 sevelamer Allergy Rash/Hives Verified 05/08/21 15:34 warfarin [From Coumadin] Allergy Anaphylaxis Verified 05/08/21 15:34 acetaminophen [From Vicodin] AdvReac Nausea & Verified 05/08/21 15:34 Vomiting aripiprazole [From Abilify] AdvReac Abdominal Verified 05/08/21 15:34 Pain aztreonam AdvReac Unknown Verified 05/08/21 15:34 calcitriol AdvReac Unknown Verified 05/08/21 15:34 cefadroxil AdvReac Unknown Verified 05/08/21 15:34 enalapril AdvReac Unknown Verified 05/08/21 15:34 hydrocodone [From Vicodin] AdvReac Nausea & Verified 05/08/21 15:34 Vomiting Influenza Virus Vaccines AdvReac Unknown Verified 05/08/21 15:34 levofloxacin [From Levaquin] AdvReac Abdominal Verified 05/08/21 15:34 Pain meloxicam [From Mobic] AdvReac Abdominal Verified 05/08/21 15:34 Pain morphine AdvReac Unknown Verified 05/08/21 15:34 propoxyphene AdvReac Unknown Verified 05/08/21 15:34 Sulfa (Sulfonamide AdvReac Vomiting Verified 05/08/21 15:34 Antibiotics) tramadol AdvReac Unknown Verified 05/08/21 15:34 Physical Exam Vitals: Vital Signs Temp Pulse Resp BP Pulse Ox 05/08/21 16:20 97.8 F 117 H 14 110/73 95 05/08/21 13:55 98.8 F 83 14 95/68 98 05/08/21 13:15 99 F 118 H 20 82/47 99 Intake and Output 05/08/21 05/08/21 05/08/21 06:59 14:59 22:59 Other: Weight 83.461 kg Results CBC & Chem 7: 05/09/21 07:42 05/08/21 14:15 Labs: Abnormal Lab Results - Last 24 Hours (Table) 05/08/21 05/08/21 Range/Units 14:15 14:15 WBC 3.1 L (3.8-10.6) k/uL RBC 2.83 L (4.30-5.90) m/uL Hgb 9.2 L (13.0-17.5) gm/dL Hct 29.0 L (39.0-53.0) % MCV 102.5 H D (80.0-100.0) fL Plt Count 135 L (150-450) k/uL Lymphocytes # 0.3 L (1.0-4.8) k/uL Sodium 131 L (137-145) mmol/L Potassium 3.2 L (3.5-5.1) mmol/L Chloride 93 L (98-107) mmol/L BUN 25 H (9-20) mg/dL Creatinine 5.49 H (0.66-1.25) mg/dL Glucose 104 H (74-99) mg/dL Total Protein 5.4 L (6.3-8.2) g/dL Albumin 3.0 L (3.5-5.0) g/dL
[2021-05-09 11:50] LABS: African American GFR (CKD) 8.1 (60.0-200.0); Anion Gap 14.2 mmol/L (10.00-18.00); BUN/Creat Ratio 4.08 Ratio (12.00-20.00); Calcium 8.9 mg/dL (8.7-10.3); Carbon Dioxide 25.8 mmol/L (20.0-27.5); Potassium 3.9 mmol/L (3.5-5.5)
[2021-05-09] MEDS ORDERED: LIDOCAINE 1% INJ 10MG/ML (20 ML MDV) SQ ONE (12:18)
[2021-05-09 13:31] LABS: Basophils # (A) 0.01 X 10*3/uL (0.00-0.10); Basophils % (A) 0.5 %; Eosinophils # (A) 0.04 X 10*3/uL (0.04-0.35); Eosinophils % (A) 1.9 %; Hypochromasia (M) 2+; Immature Grans, Automated 4.7 %; Lymphocytes # (A) 0.74 X 10*3/uL (0.90-5.00); Lymphocytes % (A) 34.7 %; Monocytes # (A) 0.27 X 10*3/uL (0.20-1.00); Monocytes % (A) 12.7 %; Neutrophils # (A) 0.97 X 10*3/uL (1.80-7.70); Neutrophils % (A) 45.5 %
--- NOTE | 2021-05-09 15:40 | P.PN ---
Subjective Progress Note Date: 05/09/21 Pt requires dialysis today with plan to pull catheter out tomorrow AM. Will likely need 4-5 days to document clearance of BCx given slow growth rate in the past. Discussed with patient, mother, ID, vascular, and nephrology today. Objective - Vital Signs Vital signs: Vital Signs Temp 98.0 F 05/09/21 13:35 Pulse 97 05/09/21 13:35 Resp 18 05/09/21 13:35 BP 121/74 05/09/21 13:35 Pulse Ox 96 05/09/21 13:35 Intake & Output 05/08/21 05/09/21 05/09/21 18:59 06:59 18:59 Intake Total 300 Balance 300 Weight 83.461 kg Intake: Oral 300 Other: # Voids 0 # Bowel Movements 1 - Exam Gen: awake, alert HEENT: normocephalic, atraumatic, good hearing acuity, moist mucous membranes Resp: good air exchange, breathing comfortably with no accessory muscle use, clear to auscultation CVS: good distal perfusion x 4, regular rate and rhythm without murmurs GI: soft, NTTP, ND : no SPT, no CVAT, sargent catheter not present MSK: no pitting edema, no clubbing Neuro: non-focal, moving all extremities Psych: cooperative, euthymic mood - Labs CBC & Chem 7: 05/09/21 07:42 05/09/21 07:42 Labs: Abnormal Lab Results - Last 24 Hours (Table) 05/09/21 05/09/21 Range/Units 07:42 07:42 WBC 2.13 L (4.50-10.00) X 10*3/uL RBC 2.50 L (4.40-5.60) X 10*6/uL Hgb 7.6 L (13.0-17.0) g/dL Hct 25.8 L (39.6-50.0) % MCV 103.2 H (80.0-97.0) fL MCHC 29.5 L (32.0-37.0) g/dL Plt Count 117 L (140-440) X 10*3/uL Plt Count Comment DECREASED A Immature Gran # 0.10 H (0.00-0.04) X 10*3/uL Neutrophils # 0.97 L (1.80-7.70) X 10*3/uL Lymphocytes # 0.74 L (0.90-5.00) X 10*3/uL BUN 33.0 H (9.0-27.0) mg/dL Creatinine 8.1 H* (0.6-1.5) mg/dL Est GFR (CKD-EPI)AfAm 8.1 L (60.0-200.0) Est GFR (CKD-EPI)NonAf 7.0 L (60.0-200.0) BUN/Creatinine Ratio 4.08 L (12.00-20.00) Ratio Assessment and Plan Assessment: Gram-positive bacteremia with acid-fast bacilli, concerning for Nocardia End-stage renal disease status post failed kidney transplant Immunocompromised state -Admit to inpatient, telemetry -ID consult for bacteremia -Vascular consult for catheter exchange -Nephrology consult for end-stage renal disease management -Meropenem 500 mg daily, which is the renal dose -Repeat blood cultures, pending -Follow up identification and sensitivities -BCx on 05/03, acid-fast bacilli -BCx on 05/08, pending -BCx on 05/09 -Continue to hold cyclosporine -Continue prednisone Paroxysmal atrial fibrillation, rate controlled -not on AC due to low CHADS-VASc of 1 -continue metoprolol Anemia of chronic disease Hypothyroidism ALLERGIC rhinitis Gout -Home medications reviewed and reconciled Patient is a full code DVT prophylaxis with heparin 3 times a day
--- NOTE | 2021-05-09 18:32 | P.NPCON ---
History of Present Illness - Reason for Consult end stage renal disease - History of Present Illness Patient is a 50-year-old male with history of end-stage renal disease and failed renal transplant currently on home hemodialysis via right IJ permacath. Patient has had fever and tachycardia as outpatient he is noted to have positive blood cultures which are growing acid-fast bacillus with concern for no cardia. Patient is being followed by infectious disease. This catheter was placed about 4 months ago. Patient has had volume overload after his recent hospitalization. He had home dialysis last 2 days with UF of about 2-2.5 L which he tolerated fairly well according to his mother There are plans for removal of IJ permacath tomorrow. serum creatinine increased from 5.4 yesterday to 8.1 today. Plan is to proceed with hemodialysis today and possibly tomorrow as well prior to removal of catheter Past Medical History Past Medical History: Atrial Fibrillation, GERD/Reflux, Renal Disease, Thyroid Disorder Additional Past Medical History / Comment(s): dialysis M/W/T//FRI, diverticulitis , blind, shingles in February History of Any Multi-Drug Resistant Organisms: None Reported Additional Past Surgical History / Comment(s): fistula placement , thyroidectomy Past Anesthesia/Blood Transfusion Reactions: Previous Problems w/ Anesthesia Additional Past Anesthesia/Blood Transfusion Reaction / Comment(s): Pt has his surgery done with local anesthetics d/t general anesthesia causing facial edema and difficulty waking. Past Psychological History: No Psychological Hx Reported Smoking Status: Never smoker Past Alcohol Use History: None Reported Past Drug Use History: None Reported - Past Family History Mother Family Medical History: Fibromyalgia, Osteoarthritis (OA) Additional Family Medical History / Comment(s): Lupus Family Family Medical History: No Reported History Additional Family Medical History / Comment(s): ETOH abuse Medications and Allergies Home Medications Medication Instructions Recorded Confirmed Type ALPRAZolam [Xanax] 0.5 mg PO HS 12/18/17 05/08/21 History Levothyroxine Sodium [Synthroid] 50 mcg PO DAILY 12/18/17 05/08/21 History Montelukast [Singulair] 10 mg PO HS 12/18/17 05/08/21 History allopurinoL [Zyloprim] 100 mg PO DAILY 12/18/17 05/08/21 History Cholecalciferol [Vitamin D3 (25 50 mcg PO Q48H 04/25/21 05/08/21 History Mcg = 1000 Iu)] Magnesium Oxide [Magox 400] 400 mg PO DAILY 04/25/21 05/08/21 History predniSONE 10 mg PO DAILY 04/25/21 05/08/21 History Aspirin EC [Ecotrin Low Dose] 324 mg PO DAILY 05/03/21 05/08/21 History Epoetin Martin [Epogen] 9,000 unit SQ MOTUSA 05/08/21 05/08/21 History Metoprolol Tartrate [Lopressor] 12.5 mg PO DAILY PRN 05/08/21 05/08/21 History Allergies Allergy/AdvReac Type Severity Reaction Status Date / Time codeine Allergy Rash/Hives Verified 05/08/21 15:34 cyclobenzaprine Allergy Rash/Hives Verified 05/08/21 15:34 [From Flexeril] diphenhydramine Allergy Anaphylaxis Verified 05/08/21 15:34 [From Benadryl] hydromorphone [From Dilaudid] Allergy Rash/Hives Verified 05/08/21 15:34 hydroxyzine Allergy Anaphylaxis Verified 05/08/21 15:34 Iodinated Contrast Media Allergy Anaphylaxis Verified 05/08/21 15:34 [Iodinated Contrast- Oral and IV Dye] latex Allergy Rash/Hives Verified 05/08/21 15:34 pantoprazole [From Protonix] Allergy Anaphylaxis Verified 05/08/21 15:34 Penicillins Allergy Rash/Hives Verified 05/08/21 15:34 potassium chloride Allergy Rash/Hives Verified 05/08/21 15:34 pregabalin [From Lyrica] Allergy Anaphylaxis Verified 05/08/21 15:34 sevelamer Allergy Rash/Hives Verified 05/08/21 15:34 warfarin [From Coumadin] Allergy Anaphylaxis Verified 05/08/21 15:34 acetaminophen [From Vicodin] AdvReac Nausea & Verified 05/08/21 15:34 Vomiting aripiprazole [From Abilify] AdvReac Abdominal Verified 05/08/21 15:34 Pain aztreonam AdvReac Unknown Verified 05/08/21 15:34 calcitriol AdvReac Unknown Verified 05/08/21 15:34 cefadroxil AdvReac Unknown Verified 05/08/21 15:34 enalapril AdvReac Unknown Verified 02/22/22 15:34 hydrocodone [From Vicodin] AdvReac Nausea & Verified 05/08/21 15:34 Vomiting Influenza Virus Vaccines AdvReac Unknown Verified 05/08/21 15:34 levofloxacin [From Levaquin] AdvReac Abdominal Verified 05/08/21 15:34 Pain meloxicam [From Mobic] AdvReac Abdominal Verified 05/08/21 15:34 Pain morphine AdvReac Unknown Verified 05/08/21 15:34 propoxyphene AdvReac Unknown Verified 05/08/21 15:34 Sulfa (Sulfonamide AdvReac Vomiting Verified 05/08/21 15:34 Antibiotics) tramadol AdvReac Unknown Verified 05/08/21 15:34 Physical Exam Vitals: Vital Signs Temp Pulse Pulse Pulse Resp BP BP 05/09/21 17:56 98.0 F 88 22 05/09/21 15:08 05/09/21 13:35 98.0 F 97 18 05/09/21 08:00 99 18 05/09/21 05:59 98.1 F 83 18 05/09/21 03:00 98.0 F 98 20 05/09/21 00:55 98 F 116 H 18 112/78 05/08/21 20:52 110 H 16 97/72 05/08/21 20:00 98.4 F 116 H 16 123/81 BP Pulse Ox 05/09/21 17:56 138/77 05/09/21 15:08 96 05/09/21 13:35 121/74 96 05/09/21 08:00 05/09/21 05:59 131/81 98 05/09/21 03:00 122/82 96 05/09/21 00:55 97 05/08/21 20:52 98 05/08/21 20:00 95 Intake and Output 05/09/21 05/09/21 05/09/21 06:59 14:59 22:59 Intake Total 553 883 4995 Output Total 2500 Balance 300 240 -1480 Intake: Intake, IV Titration 200 Amount Meropenem 500 mg In 200 Sodium Chloride 0.9% 100 ml @ 33.333 mls/hr IVPB DAILY [facility] Rx#:[id number] Oral 300 240 520 Hemodialysis 300 Output: Hemodialysis 2500 Other: # Voids 0 # Bowel Movements 1 Patient is awake comfortable. He is not in any acute distress. Examination of the heart S1 and S2 systolic murmur is heard Examination lungs bilateral breath sounds are heard Examination of the lower extremities shows edema 2+ bilaterally [facility] FLOOR TECH exam shows patient is moving all 4 extremities Right IJ permacath site is intact Results - Lab Results Most recent lab results Calcium 8.9 mg/dL (8.7-10.3) 05/09/21 07:42 Magnesium 2.3 mg/dL (1.5-2.4) 05/09/21 07:42 05/09/21 07:42 05/09/21 07:42 Assessment and Plan Assessment: 1. End-stage renal disease on home hemodialysis via right IJ permacath 2. Volume overload 3. Bacteremia with blood cultures growing acid-fast bacilli with concern for no cardia. Patient is being followed by infectious disease. Plan is to remove the catheter patient will need to be line free for a few days before reinsertion of permacath. He will likely need a temporary catheter for dialysis in between 4. CK D mineral bone disorder 5. .Failed renal transplant, for cyclosporine and currently only maintained on prednisone 6. History of recent shingles affecting the right side of the abdomen and flank area Plan: Hemodialysis today and repeat again in a.m. prior to removal of permacath. Will plan for UF about 2-2.5 L as tolerated today. Continue with prednisone Continue antibiotics as per ID
[2021-05-09] MEDS: ALPRAZolam 0.5 MG TAB PO SCH (20:14)
[2021-05-09] MEDS: MONTELUKAST 10 MG TAB PO SCH (20:14)
[2021-05-10] MEDS: LEVOTHYROXINE 50 MCG TAB PO SCH (05:35)
[2021-05-10 07:21] LABS: African American GFR (CKD) 9 (>60 ml/min/1.73 sqM); Anion Gap 8 mmol/L; Blood Urea Nitrogen 34 mg/dL (9-20); Calcium 8.9 mg/dL (8.4-10.2); Carbon Dioxide 26 mmol/L (22-30); Chloride 101 mmol/L (98-107); Glucose 84 mg/dL (74-99); Non-African American GFR(CKD) 8 (>60 ml/min/1.73 sqM); Potassium 3.5 mmol/L (3.5-5.1); Sodium 135 mmol/L (137-145)
[2021-05-10] MEDS: HEPARIN SODIUM,PORCINE/PF 5,000 UNIT/0.5 ML SYRINGE SQ SCH ×3 (09:23→20:26)
[2021-05-10] MEDS ORDERED: LIDOCAINE 1% INJ 10MG/ML (20 ML MDV) SQ ONE (11:01)
--- NOTE | 2021-05-10 11:27 | P.PN ---
Subjective Progress Note Date: 05/10/21 She was seen and examined sitting up at the bedside. He underwent hemodialysis yesterday and again this morning. Plan is for discontinuation of he has a right IJ tunneled catheter today. Blood cultures will be obtained. Pictures disease is following closely. He remains on his IV antibiotics. He's been afebrile. Objective - Vital Signs Vital signs: Vital Signs Temp 97.8 F 05/10/21 10:37 Pulse 78 05/10/21 10:37 Resp 22 05/10/21 10:37 BP 132/77 05/10/21 10:37 Pulse Ox 96 05/10/21 07:27 Intake & Output 05/09/21 05/10/21 05/10/21 18:59 06:59 18:59 Intake Total 1260 600 300 Output Total 2500 1300 Balance -1240 600 -1000 Intake: Intake, IV Titration 200 Amount Meropenem 500 mg In 200 Sodium Chloride 0.9% 100 ml @ 33.333 mls/hr IVPB DAILY [facility] Rx#:[id number] Oral 760 600 Hemodialysis 300 300 Output: Hemodialysis 2500 1300 Other: # Voids 1 - Exam General appearance: The patient is alert, oriented, appears in no acute distress. HET: Head is normocephalic and atraumatic. Conjunctiva pink. Sclera anicteric. Neck: Supple without lymphadenopathy. Chest wall: Right IJ tunneled catheter in place, no surrounding erythema noted. No drainage. Dressing clean dry and intact. Abdomen: Soft, nontender, nondistended with bowel sounds. No guarding or rigidity. Extremities: Normal skin color and turgor. No pedal edema Skin: No rashes, no jaundice Neurological: No focal deficits. Alert and oriented x3. - Labs CBC & Chem 7: 05/09/21 07:42 05/10/21 06:34 Labs: Abnormal Lab Results - Last 24 Hours (Table) 05/09/21 05/09/21 05/10/21 Range/Units 07:42 07:42 06:34 WBC 2.13 L (4.50-10.00) X 10*3/uL RBC 2.50 L (4.40-5.60) X 10*6/uL Hgb 7.6 L (13.0-17.0) g/dL Hct 25.8 L (39.6-50.0) % MCV 103.2 H (80.0-97.0) fL MCHC 29.5 L (32.0-37.0) g/dL Plt Count 117 L (140-440) X 10*3/uL Plt Count Comment DECREASED A Immature Gran # 0.10 H (0.00-0.04) X 10*3/uL Neutrophils # 0.97 L (1.80-7.70) X 10*3/uL Lymphocytes # 0.74 L (0.90-5.00) X 10*3/uL Sodium 135 L (137-145) mmol/L BUN 33.0 H 34 H (9.0-27.0) mg/dL Creatinine 8.1 H* 7.60 H* (0.6-1.5) mg/dL Est GFR (CKD-EPI)AfAm 8.1 L (60.0-200.0) Est GFR (CKD-EPI)NonAf 7.0 L (60.0-200.0) BUN/Creatinine Ratio 4.08 L (12.00-20.00) Ratio Microbiology - Last 24 Hours (Table) 05/08/21 14:35 Blood Culture - Preliminary Blood No Growth after 24 hours 05/08/21 14:15 Blood Culture - Preliminary Blood No Growth after 24 hours Assessment and Plan Assessment: 1. End-stage renal disease on hemodialysis post kidney transplant 2. Gram-positive Bacteremia with acid-fast bacilli, presumed source hemodialysis catheter 3. Immunocompromised state Plan: 1. Plan for removal of HD tunneled catheter today at the bedside. Please o btain consent. 2. Continue with recommendations from infectious disease and antibiotics 3. Continue with hemodialysis per recommendations from nephrology. If dialysis is going to be needed may need to put in a temporary HD catheter until blood cultures are negative. 4. Continue medical management Thank you for this consultation, we will continue to follow. The impression and plan of care has been dictated as directed. Dr. Agarwal I performed a history and examination of this patient, discussed the same with the dictator. I agree with the dictator's note ,documented as a scribe. Any additional findings or plans will be noted.
[2021-05-10] MEDS: MEROPENEM 500 MG in SODIUM CHLORIDE 0.9% 100 ML IVPB SCH (11:30)
[2021-05-10] MEDS: allopurinoL 100 MG TAB PO SCH (11:31)
[2021-05-10] MEDS: CHOLECALCIFEROL 25 MCG (1000 IU) TABLET PO SCH (11:31)
[2021-05-10] MEDS: METOPROLOL TARTRATE 12.5 MG TAB PO SCH ×2 (11:31→20:23)
[2021-05-10] MEDS: MAGNESIUM OXIDE 400 MG TAB PO SCH (11:31)
[2021-05-10] MEDS: predniSONE 10 MG TAB PO SCH (11:31)
--- NOTE | 2021-05-10 11:33 | P.PN ---
Subjective Progress Note Date: 05/10/21 No new complaints today. Had iHD yesterday, again this morning. BP and HR are good. Afebrile. No chills, shakes, pain. Objective - Vital Signs Vital signs: Vital Signs Temp 97.8 F 05/10/21 10:37 Pulse 78 05/10/21 10:37 Resp 22 05/10/21 10:37 BP 132/77 05/10/21 10:37 Pulse Ox 96 05/10/21 07:27 Intake & Output 05/09/21 05/10/21 05/10/21 18:59 06:59 18:59 Intake Total 1260 600 300 Output Total 2500 1300 Balance -1240 600 -1000 Intake: Intake, IV Titration 200 Amount Meropenem 500 mg In 200 Sodium Chloride 0.9% 100 ml @ 33.333 mls/hr IVPB DAILY [facility] Rx#:[id number] Oral 760 600 Hemodialysis 300 300 Output: Hemodialysis 2500 1300 Other: # Voids 1 - Exam Gen: awake, alert HEENT: normocephalic, atraumatic, good hearing acuity, moist mucous membranes Resp: good air exchange, breathing comfortably with no accessory muscle use, clear to auscultation CVS: good distal perfusion x 4, regular rate and rhythm without murmurs GI: soft, NTTP, ND : no SPT, no CVAT, sargent catheter not present MSK: no pitting edema, no clubbing Neuro: non-focal, moving all extremities Psych: cooperative, euthymic mood - Labs CBC & Chem 7: 05/09/21 07:42 05/10/21 06:34 Labs: Abnormal Lab Results - Last 24 Hours (Table) 05/09/21 05/09/21 05/10/21 Range/Units 07:42 07:42 06:34 Plt Count Comment DECREASED A Immature Gran # 0.10 H (0.00-0.04) X 10*3/uL Neutrophils # 0.97 L (1.80-7.70) X 10*3/uL Lymphocytes # 0.74 L (0.90-5.00) X 10*3/uL Sodium 135 L (137-145) mmol/L BUN 33.0 H 34 H (9.0-27.0) mg/dL Creatinine 8.1 H* 7.60 H* (0.6-1.5) mg/dL Est GFR (CKD-EPI)AfAm 8.1 L (60.0-200.0) Est GFR (CKD-EPI)NonAf 7.0 L (60.0-200.0) BUN/Creatinine Ratio 4.08 L (12.00-20.00) Ratio Microbiology - Last 24 Hours (Table) 05/08/21 14:35 Blood Culture - Preliminary Blood No Growth after 24 hours 05/08/21 14:15 Blood Culture - Preliminary Blood No Growth after 24 hours Assessment and Plan Assessment: Gram-positive bacteremia with acid-fast bacilli, concerning for Nocardia End-stage renal disease status post failed kidney transplant Immunocompromised state -Admit to inpatient, telemetry -ID consult for bacteremia -Vascular consult for catheter exchange -Nephrology consult for end-stage renal disease management -Meropenem 500 mg daily, which is the renal dose -Repeat blood cultures, pending -Follow up identification and sensitivities -BCx on 05/03, acid-fast bacilli -BCx on 05/08, NGTD -BCx on 05/10, pending -BCx on 05/11, pending -Continue to hold cyclosporine -Continue prednisone Paroxysmal atrial fibrillation, rate controlled -not on AC due to low CHADS-VASc of 1 -continue metoprolol Anemia of chronic disease Hypothyroidism ALLERGIC rhinitis Gout -Home medications reviewed and reconciled Patient is a full code DVT prophylaxis with heparin 3 times a day
--- NOTE | 2021-05-10 12:28 | P.OP ---
Date of Procedure: 05/10/21 Preoperative Diagnosis: Infected tunneled hemodialysis graft Postoperative Diagnosis: Same. Procedure(s) Performed: Explantation of infected tunneled hemodialysis graft. Implants: None. Anesthesia: local (1% Xylocaine.) Surgeon: Scottie Agarwal Estimated Blood Loss (ml): 5 IV fluids (ml): 0 Urine output (ml): 0 Pathology: none sent Condition: stable Disposition: no change Indications for Procedure: Andrey is a 50-year-old male who is hemodialysis dependent and receives dialysis via a tunneled hemodialysis catheter. This catheter has been the source of sepsis and is in need of explantation. Description of Procedure: A shunt was placed supine in his bed with the head elevated 30-40. The patient has a tunneled hemodialysis catheter placed via the right internal jugular vein approach. This area was sterilely prepped and draped. 1% Xylocaine was utilized for local anesthesia of the tissues at the cuff site. Skin incision over the cuff was made carried down through the subcu change tissues. The cuff was dissected free of investing tissues and the catheter removed in total. Skin was reapproximated with 4-0 chromic recent intradermal layer. Proper dressing was applied. Patient tolerated the procedure well.
[2021-05-10] MEDS: ALPRAZolam 0.5 MG TAB PO SCH (20:22)
[2021-05-10] MEDS: MONTELUKAST 10 MG TAB PO SCH (20:23)
[2021-05-11] MEDS: LEVOTHYROXINE 50 MCG TAB PO SCH (05:36)
[2021-05-11] MEDS: allopurinoL 100 MG TAB PO SCH (08:02)
[2021-05-11] MEDS: METOPROLOL TARTRATE 12.5 MG TAB PO SCH ×2 (08:02→21:06)
[2021-05-11] MEDS: predniSONE 10 MG TAB PO SCH (08:02)
[2021-05-11] MEDS: MAGNESIUM OXIDE 400 MG TAB PO SCH (08:03)
[2021-05-11] MEDS: MEROPENEM 500 MG in SODIUM CHLORIDE 0.9% 100 ML IVPB SCH (08:14)
[2021-05-11] MEDS: HEPARIN SODIUM,PORCINE/PF 5,000 UNIT/0.5 ML SYRINGE SQ SCH ×3 (08:14→23:34)
[2021-05-11] MEDS ORDERED: AMIKACIN IV PER PHARMACY 1 EACH MISC MISCELLANE PRN (08:34)
[2021-05-11] MEDS ORDERED: AMIKACIN SULFATE IVPB ONE (10:00)
[2021-05-11] MEDS ORDERED: SODIUM CHLORIDE 0.9% IVPB ONE (10:00)
[2021-05-11 10:08] LABS: Magnesium 2.5 mg/dL (1.5-2.4)
--- NOTE | 2021-05-11 10:10 | P.PN ---
Subjective Progress Note Date: 05/09/21 Principal diagnosis: Bacteremia secondary to dialysis catheter infection Patient is a 50 year male readmitted to the hospital with a positive blood culture concerning for dialysis cath tract infection with the patient was elected to have taken out on his last admission. On today's evaluation that is 05/09/2021, the patient denies having any fever or chills, patient denies having any chest pain or shortness of breath or cough no nausea no vomiting no abdominal pain and no diarrhea Objective - Vital Signs Vital signs: Vital Signs Temp 98.1 F 05/09/21 05:59 Pulse 83 05/09/21 05:59 Resp 18 05/09/21 05:59 BP 131/81 05/09/21 05:59 Pulse Ox 98 05/09/21 05:59 Intake & Output 05/08/21 05/09/21 05/09/21 18:59 06:59 18:59 Intake Total 300 Balance 300 Weight 83.461 kg Intake: Oral 300 Other: # Voids 0 # Bowel Movements 1 - Exam GENERAL DESCRIPTION: Middle-aged male lying in bed in no distress RESPIRATORY SYSTEM: Unlabored breathing , decreased breath sounds at bases HEART: S1 S2 regular rate and rhythm , ABDOMEN: Soft , no tenderness EXTREMITIES: No edema feet - Labs CBC & Chem 7: 05/09/21 07:42 05/10/21 06:34 Labs: Abnormal Lab Results - Last 24 Hours (Table) 05/08/21 05/08/21 05/09/21 Range/Units 14:15 14:15 07:42 WBC 3.1 L 2.13 L (3.8-10.6) k/uL RBC 2.83 L 2.50 L (4.30-5.90) m/uL Hgb 9.2 L 7.6 L (13.0-17.5) gm/dL Hct 29.0 L 25.8 L (39.0-53.0) % MCV 102.5 H D 103.2 H (80.0-100.0) fL MCHC 29.5 L (32.0-37.0) g/dL Plt Count 135 L 117 L (150-450) k/uL Lymphocytes # 0.3 L (1.0-4.8) k/uL Sodium 131 L (137-145) mmol/L Potassium 3.2 L (3.5-5.1) mmol/L Chloride 93 L (98-107) mmol/L BUN 25 H (9-20) mg/dL Creatinine 5.49 H (0.66-1.25) mg/dL Glucose 104 H (74-99) mg/dL Total Protein 5.4 L (6.3-8.2) g/dL Albumin 3.0 L (3.5-5.0) g/dL Assessment and Plan (1) Bacteremia Current Visit: Yes Status: Acute Code(s): R78.81 - BACTEREMIA SNOMED Code(s): 0159501 Plan: Patient with gram-positive branching bacilli/acid fast concerning for possible nocardia, patient to have multiple antibiotic ALLERGIES, the patient permacatheter need to be discontinued, patient to continue with the meropenem, once repeat blood cultures are negative at 96 hour he may be able to get another permacatheter Time with Patient: Less than 30
--- NOTE | 2021-05-11 10:11 | P.PN ---
Subjective Patient is seen in follow-up for end-stage renal disease. He is maintained on home hemodialysis via permacath. Permacath removed 05/10/2021 due to positive blood cultures. Last hemodialysis was May 10. Denies chest pain or shortness of breath. No active complaints. Vital signs are stable. General: The patient appeared well nourished and normally developed. HEENT: Head exam is unremarkable. LUNGS: Breath sounds decreased. HEART: Rate and Rhythm are regular. ABDOMEN: Soft, no distention. EXTREMITITES: No edema. Objective - Vital Signs Vital signs: Vital Signs Temp 98.6 F 05/11/21 08:05 Pulse 88 05/11/21 09:36 Resp 16 05/11/21 09:36 BP 145/88 05/11/21 08:05 Pulse Ox 99 05/11/21 08:05 Intake & Output 05/10/21 05/11/21 05/11/21 18:59 06:59 18:59 Intake Total 1600 500 Output Total 1300 Balance 300 500 Intake: Intake, IV Titration 100 Amount Meropenem 500 mg In 100 Sodium Chloride 0.9% 100 ml @ 33.333 mls/hr IVPB DAILY [facility] Rx#:[id number] Oral 1200 500 Hemodialysis 300 Output: Hemodialysis 1300 Other: Voiding Method Toilet Toilet Toilet - Labs CBC & Chem 7: 05/09/21 07:42 05/10/21 06:34 Labs: Abnormal Lab Results - Last 24 Hours (Table) 05/10/21 05/10/21 Range/Units 06:34 12:18 Ferritin 3387.0 H (22.0-322.0) ng/mL PTH Intact 436.0 H (14.0-72.0) pg/mL Microbiology - Last 24 Hours (Table) 05/08/21 14:35 Blood Culture - Preliminary Blood No Growth after 48 hours 05/08/21 14:15 Blood Culture - Preliminary Blood No Growth after 48 hours Assessment and Plan Plan: Assessment: 1. End-stage renal disease maintained on home hemodialysis. 2. Gram-positive bacteremia status post removal of permacath on 05/10/2021. On IV antibiotics per ID. 3. Anemia of chronic kidney disease. 4. History of failed renal transplant. Only on prednisone 10 mg daily which will be weaned outpatient. 5. Chronic kidney disease mineral bone disease. Plan: Check iron studies. Follow-up cultures. Check labs in the morning. New permacath to be placed once clearance obtained from infectious disease. Continue to assess daily for need for renal replacement therapy.
--- NOTE | 2021-05-11 10:12 | P.PN ---
Subjective Progress Note Date: 05/10/21 Principal diagnosis: Bacteremia secondary to dialysis catheter infection Patient is a 50 year male readmitted to the hospital with a positive blood culture concerning for dialysis cath tract infection with the patient was elected to have taken out on his last admission. Patient is status post removal of the infected dialysis catheter on 05/10/2021 On today's evaluation that is 05/10/2021, the patient remains to be afebrile, patient denies having any chest pain or shortness of breath or cough no nausea no vomiting no abdominal pain and no diarrhea Objective - Vital Signs Vital signs: Vital Signs Temp 98.2 F 05/10/21 19:08 Pulse 106 H 05/10/21 19:08 Resp 18 05/10/21 19:50 BP 108/79 05/10/21 19:08 Pulse Ox 96 05/10/21 19:08 Intake & Output 05/10/21 05/10/21 05/11/21 06:59 18:59 06:59 Intake Total 600 1600 Output Total 1300 Balance 600 300 Intake: Intake, IV Titration 100 Amount Meropenem 500 mg In 100 Sodium Chloride 0.9% 100 ml @ 33.333 mls/hr IVPB DAILY [facility] Rx#:[id number] Oral 600 1200 Hemodialysis 300 Output: Hemodialysis 1300 Other: Voiding Method Toilet Toilet # Voids 1 - Exam GENERAL DESCRIPTION: Middle-aged male lying in bed in no distress RESPIRATORY SYSTEM: Unlabored breathing , decreased breath sounds at bases HEART: S1 S2 regular rate and rhythm , ABDOMEN: Soft , no tenderness EXTREMITIES: No edema feet - Labs CBC & Chem 7: 05/09/21 07:42 05/10/21 06:34 Labs: Abnormal Lab Results - Last 24 Hours (Table) 05/10/21 05/10/21 Range/Units 06:34 12:18 Sodium 135 L (137-145) mmol/L BUN 34 H (9-20) mg/dL Creatinine 7.60 H* (0.66-1.25) mg/dL PTH Intact 436.0 H (14.0-72.0) pg/mL Microbiology - Last 24 Hours (Table) 05/08/21 14:35 Blood Culture - Preliminary Blood No Growth after 48 hours 05/08/21 14:15 Blood Culture - Preliminary Blood No Growth after 48 hours Assessment and Plan (1) Bacteremia Current Visit: Yes Status: Acute Code(s): R78.81 - BACTEREMIA SNOMED Code(s): 1060425 Plan: Patient with gram-positive branching bacilli/acid fast concerning for possible nocardia, patient to have multiple antibiotic ALLERGIES, the patient did have removal of the infected dialysis catheter this morning , patient to continue with the meropenem, once repeat blood cultures are negative at least 4-5 days in view of slow growing bacteria he may be able to get another permacatheter, this was discussed with the medical team Time with Patient: Less than 30
[2021-05-11 10:16] LABS: Anion Gap 13.7 mmol/L (10.00-18.00); BUN/Creat Ratio 4.24 Ratio (12.00-20.00); Blood Urea Nitrogen 34.8 mg/dL (9.0-27.0); Calcium 8.7 mg/dL (8.7-10.3); Carbon Dioxide 23.3 mmol/L (20.0-27.5); Non-African American GFR(CKD) 6.9 (60.0-200.0)
--- NOTE | 2021-05-11 10:52 | P.PN ---
Subjective Progress Note Date: 05/11/21 No new complaints today. Cultures from [facility] reviewed and patient is growing NTM - mycobacterium fortuitum. ID and nephrology notified. Objective - Vital Signs Vital signs: Vital Signs Temp 98.6 F 05/11/21 08:05 Pulse 88 05/11/21 09:36 Resp 16 05/11/21 09:36 BP 145/88 05/11/21 08:05 Pulse Ox 99 05/11/21 08:05 Intake & Output 05/10/21 05/11/21 05/11/21 18:59 06:59 18:59 Intake Total 1600 500 Output Total 1300 Balance 300 500 Intake: Intake, IV Titration 100 Amount Meropenem 500 mg In 100 Sodium Chloride 0.9% 100 ml @ 33.333 mls/hr IVPB DAILY [facility] Rx#:[id number] Oral 1200 500 Hemodialysis 300 Output: Hemodialysis 1300 Other: Voiding Method Toilet Toilet Toilet - Exam Gen: awake, alert HEENT: normocephalic, atraumatic, good hearing acuity, moist mucous membranes Resp: good air exchange, breathing comfortably with no accessory muscle use, clear to auscultation CVS: good distal perfusion x 4, regular rate and rhythm without murmurs GI: soft, NTTP, ND : no SPT, no CVAT, sargent catheter not present MSK: no pitting edema, no clubbing Neuro: non-focal, moving all extremities Psych: cooperative, euthymic mood - Labs CBC & Chem 7: 05/09/21 07:42 05/11/21 06:24 Labs: Abnormal Lab Results - Last 24 Hours (Table) 05/10/21 05/10/21 05/11/21 Range/Units 06:34 12:18 06:24 BUN 34.8 H (9.0-27.0) mg/dL Creatinine 8.2 H* (0.6-1.5) mg/dL Est GFR (CKD-EPI)AfAm 8.0 L (60.0-200.0) Est GFR (CKD-EPI)NonAf 6.9 L (60.0-200.0) BUN/Creatinine Ratio 4.24 L (12.00-20.00) Ratio Magnesium 2.5 H (1.5-2.4) mg/dL Ferritin 3387.0 H (22.0-322.0) ng/mL PTH Intact 436.0 H (14.0-72.0) pg/mL Microbiology - Last 24 Hours (Table) 05/08/21 14:35 Blood Culture - Preliminary Blood No Growth after 48 hours 05/08/21 14:15 Blood Culture - Preliminary Blood No Growth after 48 hours Assessment and Plan Assessment: Gram-positive bacteremia with acid-fast bacilli, concerning for Nocardia End-stage renal disease status post failed kidney transplant Immunocompromised state -Admit to inpatient, telemetry -ID consult for bacteremia -Vascular consult for catheter exchange -Nephrology consult for end-stage renal disease management -Meropenem 500 mg daily, which is the renal dose -Repeat blood cultures, pending -Follow up identification and sensitivities -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
[2021-05-11 11:48] LABS: Basophils # (A) 0.02 X 10*3/uL (0.00-0.10); Basophils % (A) 0.9 %; Eosinophils # (A) 0.06 X 10*3/uL (0.04-0.35); Eosinophils % (A) 2.6 %; HCT 26.3 % (39.6-50.0); HGB 7.5 g/dL (13.0-17.0); Immature Grans, Automated 3.4 %; Lymphocytes # (A) 0.99 X 10*3/uL (0.90-5.00); Lymphocytes % (A) 42.1 %; MCH 30.7 pg (27.0-32.0); MCHC 28.5 g/dL (32.0-37.0); MCV 107.8 fL (80.0-97.0); Mean Platelet Volume 10.2 fL (9.5-12.2); Monocytes # (A) 0.26 X 10*3/uL (0.20-1.00); Monocytes % (A) 11.1 %; NRBC Per 100 WBC 0 /100 WBCS (0.0-0.0); Neutrophils # (A) 0.94 X 10*3/uL (1.80-7.70); Neutrophils % (A) 39.9 %; Platelet Count 115 X 10*3/uL (140-440); RBC 2.44 X 10*6/uL (4.40-5.60); RDW 14.9 % (11.5-14.5); WBC 2.35 X 10*3/uL (4.50-10.00)
[2021-05-11 11:49] LABS: Rouleaux PRESENT
--- NOTE | 2021-05-11 12:44 | ECHOF ---
Referral Reason:r/o endocarditis MEASUREMENTS -------- HEIGHT: 175.3 cm WEIGHT: 83.5 kg BP: 145/88 RVIDd: 3.4 cm (< 3.3) IVSd: 1.3 cm (0.6 - 1.1) LVIDd: 4.9 cm (3.9 - 5.3) LVPWd: 1.2 cm (0.6 - 1.1) IVSs: 1.9 cm LVIDs: 3.1 cm LVPWs: 1.8 cm LA Diam: 3.7 cm (2.7 - 3.8) LAESV Index (A-L): 31.29 ml/m Ao Diam: 3.5 cm (2.0 - 3.7) AV Cusp: 0.7 cm (1.5 - 2.6) MV EXCURSION: 13.544 mm (> 18.000) MV EF SLOPE: 50 mm/s (70 - 150) EPSS: 1.4 cm AV maxP.25 mmHg AV meanP.78 mmHg AR PHT: 551 ms RAP: 5.00 mmHg RVSP: 27.32 mmHg FINDINGS -------- Atrial fibrillation. This was a technically adequate study. The left ventricular size is normal. There is mild concentric left ventricular hypertrophy. Overa ll left ventricular systolic function is normal with, an EF between 55 - 60 %. The right ventricle is mildly enlarged. LA is midly dilated 29-33ml/m2. The right atrium is normal in size. Interatrial and interventricular septum intact. There is mild aortic valve sclerosis. There is mild aortic regurgitation. There is mild aortic st enosis present. Peak/mean gradient across the Aortic Valve is 38.25mmHg / 18.78mmHg. The mitral valve leaflets are mildly thickened. Moderate mitral annular calcification present. Mi ld mitral regurgitation is present. Possible Attachement MV Leaflet. The tricuspid valve appears structurally normal. Mild tricuspid regurgitation present. Right vent ricular systolic pressure is normal at < 35 mmHg. Trace/mild (physiologic) pulmonic regurgitation. The aortic root size is normal. There is no pericardial effusion. CONCLUSIONS -------- 1. There is mild concentric left ventricular hypertrophy. 2. Overall left ventricular systolic function is normal with, an EF between 55 - 60 %. 3. The right ventricle is mildly enlarged. 4. LA is midly dilated 29-33ml/m2. 5. There is mild aortic valve sclerosis. 6. There is mild aortic regurgitation. 7. There is mild aortic stenosis present. 8. Peak/mean gradient across the Aortic Valve is 38.25mmHg / 18.78mmHg. 9. The mitral valve leaflets are mildly thickened. 10. Moderate mitral annular calcification present. 11. Mild mitral regurgitation is present. 12. Possible Attachement MV Leaflet. 13. Mild tricuspid regurgitation present. 14. Trace/mild (physiologic) pulmonic regurgitation. BURNING MACHINE OPERATOR: Graciela Walker RDCS
--- NOTE | 2021-05-11 12:44 | P.PN ---
Subjective Progress Note Date: 05/11/21 patient is seen as a follow-up. Yesterday he underwent removal of his hemodialysis Tunneled catheter. He denies any problems. He denies any fevers or chills. He denies any pain. Repeat blood cultures pending Objective - Vital Signs Vital signs: Vital Signs Temp 98.6 F 05/11/21 08:05 Pulse 88 05/11/21 09:36 Resp 16 05/11/21 09:36 BP 145/88 05/11/21 08:05 Pulse Ox 99 05/11/21 08:05 Intake & Output 05/10/21 05/11/21 05/11/21 18:59 06:59 18:59 Intake Total 1600 500 Output Total 1300 Balance 300 500 Intake: Intake, IV Titration 100 Amount Meropenem 500 mg In 100 Sodium Chloride 0.9% 100 ml @ 33.333 mls/hr IVPB DAILY [facility] Rx#:[id number] Oral 1200 500 Hemodialysis 300 Output: Hemodialysis 1300 Other: Voiding Method Toilet Toilet Toilet - Exam General appearance: The patient is alert, oriented, appears in no acute distress. HET: Head is normocephalic and atraumatic. Conjunctiva pink. Sclera anicteric. Neck: Supple without lymphadenopathy. Chest wall: Right IJ tunneled catheter immovable site well approximated without any active bleeding. No redness or drainage noted. Abdomen: Soft, nontender, nondistended with bowel sounds. No guarding or rigidity. Extremities: Normal skin color and turgor. No pedal edema Skin: No rashes, no jaundice Neurological: No focal deficits. Alert and oriented x3. - Labs CBC & Chem 7: 05/11/21 06:24 05/11/21 06:24 Labs: Abnormal Lab Results - Last 24 Hours (Table) 05/10/21 05/10/21 05/11/21 Range/Units 06:34 12:18 06:24 BUN 34.8 H (9.0-27.0) mg/dL Creatinine 8.2 H* (0.6-1.5) mg/dL Est GFR (CKD-EPI)AfAm 8.0 L (60.0-200.0) Est GFR (CKD-EPI)NonAf 6.9 L (60.0-200.0) BUN/Creatinine Ratio 4.24 L (12.00-20.00) Ratio Magnesium 2.5 H (1.5-2.4) mg/dL Ferritin 3387.0 H (22.0-322.0) ng/mL PTH Intact 436.0 H (14.0-72.0) pg/mL Microbiology - Last 24 Hours (Table) 05/08/21 14:35 Blood Culture - Preliminary Blood No Growth after 48 hours 05/08/21 14:15 Blood Culture - Preliminary Blood No Growth after 48 hours Assessment and Plan Assessment: 1. Gram-positive Bacteremia with acid-fast bacilli, presumed source hemodialysis catheter status post removal 2. End-stage renal disease on hemodialysis post kidney transplant 3. Immunocompromised state 4. Legally blind Plan: 1. Plan for removal of HD tunneled catheter today at the bedside. Please obtain consent. 2. Continue with recommendations from infectious disease and antibiotics 3. Continue with hemodialysis per recommendations from nephrology. If dialysis is going to be needed may need to put in a temporary HD catheter until blood cultures are negative. 4. Continue medical management Thank you for this consultation, we will continue to follow. The impression and plan of care has been dictated as directed. Dr. Keys I performed a history and examination of this patient, discussed the same with the dictator. I agree with the dictator's note ,documented as a scribe. Any additional findings or plans will be noted.
[2021-05-11] MEDS: SODIUM CHLORIDE 0.9% IVPB SCH (15:20)
[2021-05-11] MEDS: IMIPENEM CILASTATIN IVPB SCH (15:20)
[2021-05-11 15:26] LABS: % Iron Saturation 22.18 (15.00-50.00)
[2021-05-11] MEDS: MONTELUKAST 10 MG TAB PO SCH (21:06)
[2021-05-11] MEDS: ALPRAZolam 0.5 MG TAB PO SCH (21:06)
--- NOTE | 2021-05-11 23:05 | P.PN ---
Subjective Progress Note Date: 05/11/21 Principal diagnosis: Bacteremia secondary to dialysis catheter infection Patient is a 50 year male readmitted to the hospital with a positive blood culture concerning for dialysis cath tract infection with the patient was elected to have taken out on his last admission. Patient is status post removal of the infected dialysis catheter on 05/10/2021 On today's evaluation that is 05/11/2021, the patient denies any fever or any chills, patient denies having any chest pain or shortness of breath or cough no nausea no vomiting no abdominal pain and no diarrhea with antibiotic therapy Objective - Vital Signs Vital signs: Vital Signs Temp 97.9 F 05/11/21 12:39 Pulse 86 05/11/21 12:39 Resp 18 05/11/21 12:39 BP 134/80 05/11/21 12:39 Pulse Ox 98 05/11/21 12:39 Intake & Output 05/10/21 05/11/21 05/11/21 18:59 06:59 18:59 Intake Total 1600 500 Output Total 1300 Balance 300 500 Intake: Intake, IV Titration 100 Amount Meropenem 500 mg In 100 Sodium Chloride 0.9% 100 ml @ 33.333 mls/hr IVPB DAILY [facility] Rx#:[id number] Oral 1200 500 Hemodialysis 300 Output: Hemodialysis 1300 Other: Voiding Method Toilet Toilet Toilet - Exam GENERAL DESCRIPTION: Middle-aged male lying in bed in no distress RESPIRATORY SYSTEM: Unlabored breathing , decreased breath sounds at bases HEART: S1 S2 regular rate and rhythm , ABDOMEN: Soft , no tenderness EXTREMITIES: No edema feet - Labs CBC & Chem 7: 05/11/21 06:24 05/11/21 06:24 Labs: Abnormal Lab Results - Last 24 Hours (Table) 05/10/21 05/10/21 05/11/21 Range/Units 06:34 12:18 06:24 WBC 2.35 L (4.50-10.00) X 10*3/uL RBC 2.44 L (4.40-5.60) X 10*6/uL Hgb 7.5 L (13.0-17.0) g/dL Hct 26.3 L (39.6-50.0) % MCV 107.8 H (80.0-97.0) fL MCHC 28.5 L (32.0-37.0) g/dL RDW 14.9 H (11.5-14.5) % Plt Count 115 L (140-440) X 10*3/uL Plt Count Comment DECREASED A Immature Gran # 0.08 H (0.00-0.04) X 10*3/uL Neutrophils # 0.94 L (1.80-7.70) X 10*3/uL BUN (9.0-27.0) mg/dL Creatinine (0.6-1.5) mg/dL Est GFR (CKD-EPI)AfAm (60.0-200.0) Est GFR (CKD-EPI)NonAf (60.0-200.0) BUN/Creatinine Ratio (12.00-20.00) Ratio Magnesium (1.5-2.4) mg/dL Iron (65-175) ug/dL TIBC (228-460) ug/dL Transferrin (204.0-354.0) mg/dL Ferritin 3387.0 H (22.0-322.0) ng/mL PTH Intact 436.0 H (14.0-72.0) pg/mL 05/11/21 05/11/21 Range/Units 06:24 06:24 WBC (4.50-10.00) X 10*3/uL RBC (4.40-5.60) X 10*6/uL Hgb (13.0-17.0) g/dL Hct (39.6-50.0) % MCV (80.0-97.0) fL MCHC (32.0-37.0) g/dL RDW (11.5-14.5) % Plt Count (140-440) X 10*3/uL Plt Count Comment Immature Gran # (0.00-0.04) X 10*3/uL Neutrophils # (1.80-7.70) X 10*3/uL BUN 34.8 H (9.0-27.0) mg/dL Creatinine 8.2 H* (0.6-1.5) mg/dL Est GFR (CKD-EPI)AfAm 8.0 L (60.0-200.0) Est GFR (CKD-EPI)NonAf 6.9 L (60.0-200.0) BUN/Creatinine Ratio 4.24 L (12.00-20.00) Ratio Magnesium 2.5 H (1.5-2.4) mg/dL Iron 47 L (65-175) ug/dL TIBC 213 L (228-460) ug/dL Transferrin 152.0 L (204.0-354.0) mg/dL Ferritin (22.0-322.0) ng/mL PTH Intact (14.0-72.0) pg/mL Microbiology - Last 24 Hours (Table) 05/10/21 12:18 Blood Culture - Preliminary Blood No Growth after 24 hours 05/08/21 14:35 Blood Culture - Preliminary Blood No Growth after 48 hours 05/08/21 14:15 Blood Culture - Preliminary Blood No Growth after 48 hours Assessment and Plan (1) Bacteremia Current Visit: Yes Status: Acute Code(s): R78.81 - BACTEREMIA SNOMED Code(s): 7378590 Plan: Patient with gram-positive branching bacilli/acid fast with initial concern for possible nocardia, patient due have multiple antibiotic ALLERGIES, the patient did have removal of the infected dialysis catheter this morning , patient cultures done at [facility] has been finalized with Mycobacterium Fortuitum , patient antibiotic will be adjusted to imipenem and amikacin pharmacy to dose per guidelines, we will also obtain an echocardiogram and a WBC scan to make sure no evidence of any deep infection that will determine the duration of his antibiotic therapy, this was discussed in detail with the family and medical physician as well as pharmacist time spent today has been more than 30 minutes Time with Patient: Less than 30
[2021-05-12] MEDS ORDERED: IN SODIUM CHLORIDE 0.9% IV SCH
[2021-05-12] MEDS: SODIUM CHLORIDE 0.9% IVPB SCH ×2 (03:42→15:16)
[2021-05-12] MEDS: IMIPENEM CILASTATIN IVPB SCH ×2 (03:42→15:16)
[2021-05-12] MEDS: LEVOTHYROXINE 50 MCG TAB PO SCH (07:21)
[2021-05-12] MEDS: predniSONE 10 MG TAB PO SCH (09:07)
[2021-05-12] MEDS: allopurinoL 100 MG TAB PO SCH (09:07)
[2021-05-12] MEDS: CHOLECALCIFEROL 25 MCG (1000 IU) TABLET PO SCH (09:07)
[2021-05-12] MEDS: HEPARIN SODIUM,PORCINE/PF 5,000 UNIT/0.5 ML SYRINGE SQ SCH ×2 (09:07→17:37)
[2021-05-12] MEDS: MAGNESIUM OXIDE 400 MG TAB PO SCH (09:07)
[2021-05-12] MEDS: METOPROLOL TARTRATE 12.5 MG TAB PO SCH ×2 (09:07→20:16)
--- NOTE | 2021-05-12 11:46 | P.PN ---
Subjective Progress Note Date: 05/12/21 Pt underwent echo yesterday which showed thickened MV, good EF. BCx - NGTD. On imipenem and amikacin. Doing well today, no complaints. Objective - Vital Signs Vital signs: Vital Signs Temp 97.9 F 05/12/21 04:40 Pulse 89 05/12/21 04:40 Resp 20 05/12/21 08:00 BP 163/83 05/12/21 04:40 Pulse Ox 95 05/12/21 07:24 Intake & Output 05/11/21 05/12/21 05/12/21 18:59 06:59 18:59 Intake Total 400 340 Output Total 0 Balance 400 340 Weight 82.4 kg Intake: Intake, IV Titration 100 Amount Imipenem-Cilastatin 250 100 mg In Sodium Chloride 0.9 % 100 ml @ 220 mls/hr IVPB Q12H [facility] Rx#: [id number] Oral 400 240 Output: Urine 0 Other: Voiding Method Toilet - Exam Gen: awake, alert HEENT: normocephalic, atraumatic, good hearing acuity, moist mucous membranes Resp: good air exchange, breathing comfortably with no accessory muscle use, clear to auscultation CVS: good distal perfusion x 4, regular rate and rhythm without murmurs GI: soft, NTTP, ND : no SPT, no CVAT, sargent catheter not present MSK: no pitting edema, no clubbing Neuro: non-focal, moving all extremities Psych: cooperative, euthymic mood - Labs CBC & Chem 7: 05/11/21 06:24 05/11/21 06:24 Labs: Abnormal Lab Results - Last 24 Hours (Table) 05/11/21 05/11/21 Range/Units 06:24 06:24 WBC 2.35 L (4.50-10.00) X 10*3/uL RBC 2.44 L (4.40-5.60) X 10*6/uL Hgb 7.5 L (13.0-17.0) g/dL Hct 26.3 L (39.6-50.0) % MCV 107.8 H (80.0-97.0) fL MCHC 28.5 L (32.0-37.0) g/dL RDW 14.9 H (11.5-14.5) % Plt Count 115 L (140-440) X 10*3/uL Plt Count Comment DECREASED A Immature Gran # 0.08 H (0.00-0.04) X 10*3/uL Neutrophils # 0.94 L (1.80-7.70) X 10*3/uL Iron 47 L (65-175) ug/dL TIBC 213 L (228-460) ug/dL Transferrin 152.0 L (204.0-354.0) mg/dL Microbiology - Last 24 Hours (Table) 05/11/21 06:24 Blood Culture - Preliminary Blood No Growth after 24 hours 05/08/21 14:35 Blood Culture - Preliminary Blood No Growth after 72 hours 05/08/21 14:15 Blood Culture - Preliminary Blood No Growth after 72 hours 05/10/21 12:18 Blood Culture - Preliminary Blood No Growth after 24 hours Assessment and Plan Assessment: Gram-positive bacteremia with acid-fast bacilli, concerning for Nocardia End-stage renal disease status post failed kidney transplant Immunocompromised state -Admit to inpatient, telemetry -ID consult for bacteremia -Vascular consult for catheter exchange, removed on 05/10 -Nephrology consult for end-stage renal disease management -Amikacin, Imipenem -Repeat blood cultures, pending -Follow up identification and sensitivities -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, mycobacterium fortuitum, 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 -BCx on 05/03, acid-fast bacilli, growth identified on 05/07 -BCx on 05/04, acid-fast bacilli, growth identified on 05/10 -BCx on 05/08, NGTD -BCx on 05/10, NGTD, permacath removed -BCx on 05/11, NGTD -BCx on 05/12, pending -BCx on 05/13, pending -Continue to hold cyclosporine -Continue prednisone -echo to r/o endocarditis, shows thickened MV -cardiology consulted for MUNDO -Tagged WBC scan to look for source of infx, pending Paroxysmal atrial fibrillation, rate controlled -not on AC due to low CHADS-VASc of 1 -continue metoprolol Anemia of chronic disease Hypothyroidism ALLERGIC rhinitis Gout -Home medications reviewed and reconciled Patient is a full code DVT prophylaxis with heparin 3 times a day
[2021-05-12 13:55] LABS: Basophils % (A) 1 %; Eosinophils # (A) 0.1 k/uL (0-0.7); Eosinophils % (A) 2 %; HCT 28.4 % (39.0-53.0); HGB 8.1 gm/dL (13.0-17.5); Hypochromasia Marked; Lymphocytes # (A) 0.9 k/uL (1.0-4.8); Lymphocytes % (A) 34 %; MCH 32.1 pg (25.0-35.0); MCHC 28.5 g/dL (31.0-37.0); Macrocytosis Marked; Mean Platelet Volume 8.7; Monocytes # (A) 0.2 k/uL (0-1.0); Monocytes % (A) 9 %; Neutrophils # (A) 1.3 k/uL (1.3-7.7); Neutrophils % (A) 51 %; Platelet Count 149 k/uL (150-450); RBC 2.52 m/uL (4.30-5.90); RDW 15.4 % (11.5-15.5); WBC 2.6 k/uL (3.8-10.6)
[2021-05-12 13:57] LABS: MCV 112.8 fL (80.0-100.0)
[2021-05-12 14:01] LABS: Magnesium 2.6 mg/dL (1.5-2.4)
[2021-05-12 14:14] LABS: African American GFR (CKD) 6.1 (60.0-200.0); Anion Gap 15.2 mmol/L (10.00-18.00); BUN/Creat Ratio 4.83 Ratio (12.00-20.00); Blood Urea Nitrogen 49.7 mg/dL (9.0-27.0); Calcium 8.9 mg/dL (8.7-10.3); Carbon Dioxide 20.8 mmol/L (20.0-27.5); Non-African American GFR(CKD) 5.3 (60.0-200.0); Potassium 4.1 mmol/L (3.5-5.5)
[2021-05-12 14:17] LABS: Anisocytosis (M) Present; Poikilocytosis (M) Present
--- NOTE | 2021-05-12 15:23 | P.PN ---
Subjective Progress Note Date: 05/12/21 Follow-up for ESRD. Family at bedside. Denies any nausea vomiting diarrhea. Objective - Vital Signs Vital signs: Vital Signs Temp 97.8 F 05/12/21 11:42 Pulse 74 05/12/21 11:42 Resp 18 05/12/21 11:42 BP 140/87 05/12/21 11:42 Pulse Ox 98 05/12/21 11:42 Intake & Output 05/11/21 05/12/21 05/12/21 18:59 06:59 18:59 Intake Total 400 340 Output Total 0 Balance 400 340 Weight 82.4 kg Intake: Intake, IV Titration 100 Amount Imipenem-Cilastatin 250 100 mg In Sodium Chloride 0.9 % 100 ml @ 220 mls/hr IVPB Q12H [facility] Rx#: [id number] Oral 400 240 Output: Urine 0 Other: Voiding Method Toilet - Exam No acute distress S1-S2 heard Decrease breath sounds No edema - Labs CBC & Chem 7: 05/12/21 07:09 05/12/21 07:09 Labs: Abnormal Lab Results - Last 24 Hours (Table) 05/11/21 05/12/21 05/12/21 Range/Units 06:24 07:09 07:09 WBC 2.6 L (3.8-10.6) k/uL RBC 2.52 L (4.30-5.90) m/uL Hgb 8.1 L (13.0-17.5) gm/dL Hct 28.4 L (39.0-53.0) % MCV 112.8 H D (80.0-100.0) fL MCHC 28.5 L (31.0-37.0) g/dL Plt Count 149 L (150-450) k/uL Lymphocytes # 0.9 L (1.0-4.8) k/uL Macrocytosis Marked A BUN 49.7 H (9.0-27.0) mg/dL Creatinine 10.3 H* (0.6-1.5) mg/dL Est GFR (CKD-EPI)AfAm 6.1 L (60.0-200.0) Est GFR (CKD-EPI)NonAf 5.3 L (60.0-200.0) BUN/Creatinine Ratio 4.83 L (12.00-20.00) Ratio Magnesium 2.6 H (1.5-2.4) mg/dL Iron 47 L (65-175) ug/dL TIBC 213 L (228-460) ug/dL Transferrin 152.0 L (204.0-354.0) mg/dL Microbiology - Last 24 Hours (Table) 05/10/21 12:18 Blood Culture - Preliminary Blood No Growth after 48 hours 05/11/21 06:24 Blood Culture - Preliminary Blood No Growth after 24 hours 05/08/21 14:35 Blood Culture - Preliminary Blood No Growth after 72 hours 05/08/21 14:15 Blood Culture - Preliminary Blood No Growth after 72 hours Assessment and Plan Assessment: #1 ESRD on home hemodialysis. #2 Mycobacterium bacteremia #3 anemia with chronic kidney disease #4 hypertension with chronic kidney disease #5 failed renal transplant currently on 10 mg prednisone #6 metabolic bone disease Plan: #1 electrolytes stable, monitor daily for need for dialysis. #2 iron saturation of 22%, high ferritin. Add darbepoetin 60 g every weekly. #3 antibiotics as per infectious disease. Once cleared by infectious disease, place new permacath. #4 daily labs
[2021-05-12] MEDS ORDERED: DARBEPOETIN ALFA 60 MCG/0.3 ML SYRINGE SQ SCH (15:30)
--- NOTE | 2021-05-12 15:36 | P.PN ---
Subjective Progress Note Date: 05/12/21 patient seen and examined. No events overnight. Doing well since catheter removal. Objective - Vital Signs Vital signs: Vital Signs Temp 97.8 F 05/12/21 11:42 Pulse 74 05/12/21 11:42 Resp 18 05/12/21 11:42 BP 140/87 05/12/21 11:42 Pulse Ox 98 05/12/21 11:42 Intake & Output 05/11/21 05/12/21 05/12/21 18:59 06:59 18:59 Intake Total 400 340 Output Total 0 Balance 400 340 Weight 82.4 kg Intake: Intake, IV Titration 100 Amount Imipenem-Cilastatin 250 100 mg In Sodium Chloride 0.9 % 100 ml @ 220 mls/hr IVPB Q[facility] Rx#: [id number] Oral 400 240 Output: Urine 0 Other: Voiding Method Toilet - Exam previous catheter site clean, dry and intact. No hematoma. - Labs CBC & Chem 7: 05/12/21 07:09 05/12/21 07:09 Labs: Abnormal Lab Results - Last 24 Hours (Table) 05/12/21 05/12/21 Range/Units 07:09 07:09 WBC 2.6 L (3.8-10.6) k/uL RBC 2.52 L (4.30-5.90) m/uL Hgb 8.1 L (13.0-17.5) gm/dL Hct 28.4 L (39.0-53.0) % MCV 112.8 H D (80.0-100.0) fL MCHC 28.5 L (31.0-37.0) g/dL Plt Count 149 L (150-450) k/uL Lymphocytes # 0.9 L (1.0-4.8) k/uL Macrocytosis Marked A BUN 49.7 H (9.0-27.0) mg/dL Creatinine 10.3 H* (0.6-1.5) mg/dL Est GFR (CKD-EPI)AfAm 6.1 L (60.0-200.0) Est GFR (CKD-EPI)NonAf 5.3 L (60.0-200.0) BUN/Creatinine Ratio 4.83 L (12.00-20.00) Ratio Magnesium 2.6 H (1.5-2.4) mg/dL Microbiology - Last 24 Hours (Table) 05/10/21 12:18 Blood Culture - Preliminary Blood No Growth after 48 hours 05/11/21 06:24 Blood Culture - Preliminary Blood No Growth after 24 hours 05/08/21 14:35 Blood Culture - Preliminary Blood No Growth after 72 hours 05/08/21 14:15 Blood Culture - Preliminary Blood No Growth after 72 hours Assessment and Plan Assessment: 1. Gram-positive Bacteremia with acid-fast bacilli, presumed source hemodialysis catheter status post removal 2. End-stage renal disease on hemodialysis post kidney transplant 3. Immunocompromised state 4. Legally blind Plan: 1. Continue with recommendations from infectious disease and antibiotics 2. Continue with hemodialysis per recommendations from nephrology. If dialysis is going to be needed may need to put in a temporary HD catheter until blood cultures are negative. 3. Continue medical management
--- NOTE | 2021-05-12 16:25 | P.PN ---
Subjective Progress Note Date: 05/12/21 Principal diagnosis: Bacteremia secondary to dialysis catheter infection Patient is a 50 year male readmitted to the hospital with a positive blood culture concerning for dialysis cath tract infection with the patient was elected to have taken out on his last admission. Patient is status post removal of the infected dialysis catheter on 05/10/2021 On today's evaluation that is 05/12/2021, the patient remains to be afebrile, patient denies having any chest pain or shortness of breath or cough , the patient denies nausea no vomiting no abdominal pain and no diarrhea with antibiotic therapy Objective - Vital Signs Vital signs: Vital Signs Temp 97.8 F 05/12/21 11:42 Pulse 74 05/12/21 11:42 Resp 18 05/12/21 11:42 BP 140/87 05/12/21 11:42 Pulse Ox 98 05/12/21 11:42 Intake & Output 05/11/21 05/12/21 05/12/21 18:59 06:59 18:59 Intake Total 400 340 Output Total 0 Balance 400 340 Weight 82.4 kg Intake: Intake, IV Titration 100 Amount Imipenem-Cilastatin 250 100 mg In Sodium Chloride 0.9 % 100 ml @ 220 mls/hr IVPB Q12H [facility] Rx#: [id number] Oral 400 240 Output: Urine 0 Other: Voiding Method Toilet - Exam GENERAL DESCRIPTION: Middle-aged male lying in bed in no distress RESPIRATORY SYSTEM: Unlabored breathing , decreased breath sounds at bases HEART: S1 S2 regular rate and rhythm , ABDOMEN: Soft , no tenderness EXTREMITIES: No edema feet - Labs CBC & Chem 7: 05/12/21 07:09 05/12/21 07:09 Labs: Abnormal Lab Results - Last 24 Hours (Table) 05/11/21 05/12/21 05/12/21 Range/Units 06:24 07:09 07:09 WBC 2.6 L (3.8-10.6) k/uL RBC 2.52 L (4.30-5.90) m/uL Hgb 8.1 L (13.0-17.5) gm/dL Hct 28.4 L (39.0-53.0) % MCV 112.8 H D (80.0-100.0) fL MCHC 28.5 L (31.0-37.0) g/dL Plt Count 149 L (150-450) k/uL Lymphocytes # 0.9 L (1.0-4.8) k/uL Macrocytosis Marked A BUN 49.7 H (9.0-27.0) mg/dL Creatinine 10.3 H* (0.6-1.5) mg/dL Est GFR (CKD-EPI)AfAm 6.1 L (60.0-200.0) Est GFR (CKD-EPI)NonAf 5.3 L (60.0-200.0) BUN/Creatinine Ratio 4.83 L (12.00-20.00) Ratio Magnesium 2.6 H (1.5-2.4) mg/dL Iron 47 L (65-175) ug/dL TIBC 213 L (228-460) ug/dL Transferrin 152.0 L (204.0-354.0) mg/dL Microbiology - Last 24 Hours (Table) 05/10/21 12:18 Blood Culture - Preliminary Blood No Growth after 48 hours 05/11/21 06:24 Blood Culture - Preliminary Blood No Growth after 24 hours 05/08/21 14:35 Blood Culture - Preliminary Blood No Growth after 72 hours 05/08/21 14:15 Blood Culture - Preliminary Blood No Growth after 72 hours Assessment and Plan (1) Bacteremia Current Visit: Yes Status: Acute Code(s): R78.81 - BACTEREMIA SNOMED Code(s): 0210887 Plan: Patient with gram-positive branching bacilli/acid fast with initial concern for possible nocardia, patient due have multiple antibiotic ALLERGIES, the patient did have removal of the infected dialysis catheter this morning , patient cultures done at [facility] has been finalized with Mycobacterium Fortuitum , patient antibiotic has been adjusted to imipenem and amikacin pharmacy to dose per guidelines, echocardiogram did show some thickened mitral VALVE and the patient will benefit from MUNDO, WBC scan is pending repeat blood sugar have been negative so far possible new dialysis catheter either Friday or Friday, family the bedside questions were answered Time with Patient: Less than 30
[2021-05-12] MEDS: MONTELUKAST 10 MG TAB PO SCH (20:16)
[2021-05-12] MEDS: ALPRAZolam 0.5 MG TAB PO SCH (20:16)
[2021-05-13] MEDS: HEPARIN SODIUM,PORCINE/PF 5,000 UNIT/0.5 ML SYRINGE SQ SCH ×4 (01:16→23:34)
[2021-05-13] MEDS: IMIPENEM CILASTATIN IVPB SCH ×2 (02:47→15:47)
[2021-05-13] MEDS: SODIUM CHLORIDE 0.9% IVPB SCH ×2 (02:47→15:47)
[2021-05-13] MEDS: allopurinoL 100 MG TAB PO SCH (08:41)
[2021-05-13] MEDS: MAGNESIUM OXIDE 400 MG TAB PO SCH (08:41)
[2021-05-13] MEDS: LEVOTHYROXINE 50 MCG TAB PO SCH (08:41)
[2021-05-13] MEDS: METOPROLOL TARTRATE 12.5 MG TAB PO SCH ×2 (08:41→21:01)
[2021-05-13] MEDS: predniSONE 10 MG TAB PO SCH (08:42)
[2021-05-13 09:06] LABS: Basophils # (A) 0.03 X 10*3/uL (0.00-0.10); Basophils % (A) 0.9 %; Eosinophils # (A) 0.06 X 10*3/uL (0.04-0.35); Eosinophils % (A) 1.9 %; HCT 28.4 % (39.6-50.0); HGB 8.2 g/dL (13.0-17.0); Immature Grans, Automated 4.4 %; Lymphocytes # (A) 1.05 X 10*3/uL (0.90-5.00); Lymphocytes % (A) 32.7 %; MCH 30.7 pg (27.0-32.0); MCHC 28.9 g/dL (32.0-37.0); MCV 106.4 fL (80.0-97.0); Mean Platelet Volume 9.7 fL (9.5-12.2); Monocytes % (A) 9.3 %; NRBC Per 100 WBC 0.6 /100 WBCS (0.0-0.0); Neutrophils # (A) 1.63 X 10*3/uL (1.80-7.70); Neutrophils % (A) 50.8 %; Platelet Count 143 X 10*3/uL (140-440); RBC 2.67 X 10*6/uL (4.40-5.60); RDW 15.3 % (11.5-14.5); WBC 3.21 X 10*3/uL (4.50-10.00)
[2021-05-13 10:15] LABS: Magnesium 2.8 mg/dL (1.5-2.4)
[2021-05-13 10:43] LABS: African American GFR (CKD) 5.1 (60.0-200.0); Anion Gap 17.2 mmol/L (10.00-18.00); BUN/Creat Ratio 5.22 Ratio (12.00-20.00); Blood Urea Nitrogen 62.6 mg/dL (9.0-27.0); Calcium 8.8 mg/dL (8.7-10.3); Carbon Dioxide 20.8 mmol/L (20.0-27.5); Non-African American GFR(CKD) 4.4 (60.0-200.0); Potassium 4.3 mmol/L (3.5-5.5)
--- NOTE | 2021-05-13 11:28 | P.PN ---
Subjective Progress Note Date: 05/13/21 No new complaints today. Ongoing IV Abx. Pending BCx - ideally should wait 7 days prior to placement of PICC line and replacement of perma-catheter. Objective - Vital Signs Vital signs: Vital Signs Temp 97.9 F 05/13/21 05:00 Pulse 95 05/13/21 05:00 Resp 20 05/13/21 05:00 BP 124/83 05/13/21 05:00 Pulse Ox 96 05/13/21 07:00 Intake & Output 05/12/21 05/13/21 05/13/21 18:59 06:59 18:59 Intake Total 100 200 Balance 100 200 Weight 83.552 kg Intake: Intake, IV Titration 100 100 Amount Imipenem-Cilastatin 250 100 100 mg In Sodium Chloride 0.9 % 100 ml @ 220 mls/hr IVPB Q12H [facility] Rx#: [id number] Oral 100 Other: Voiding Method Toilet # Voids 1 - Exam Gen: awake, alert HEENT: normocephalic, atraumatic, good hearing acuity, moist mucous membranes Resp: good air exchange, breathing comfortably with no accessory muscle use, clear to auscultation CVS: good distal perfusion x 4, regular rate and rhythm without murmurs GI: soft, NTTP, ND : no SPT, no CVAT, sargent catheter not present MSK: no pitting edema, no clubbing Neuro: non-focal, moving all extremities Psych: cooperative, euthymic mood - Labs CBC & Chem 7: 05/13/21 06:28 05/13/21 06:28 Labs: Abnormal Lab Results - Last 24 Hours (Table) 05/12/21 05/12/21 05/13/21 Range/Units 07:09 07:09 06:28 WBC 2.6 L 3.21 L (3.8-10.6) k/uL RBC 2.52 L 2.67 L (4.30-5.90) m/uL Hgb 8.1 L 8.2 L (13.0-17.5) gm/dL Hct 28.4 L 28.4 L (39.0-53.0) % MCV 112.8 H D 106.4 H (80.0-100.0) fL MCHC 28.5 L 28.9 L (31.0-37.0) g/dL RDW 15.3 H (11.5-14.5) % Plt Count 149 L (150-450) k/uL Absolute Nucleated RBC 0.02 H (0.00-0.00) X 10*3/uL Immature Gran # 0.14 H (0.00-0.04) X 10*3/uL Neutrophils # 1.63 L (1.80-7.70) X 10*3/uL Lymphocytes # 0.9 L (1.0-4.8) k/uL NRBC/100 WBC Diff 0.6 H (0.0-0.0) /100 WBCS Macrocytosis Marked A BUN 49.7 H (9.0-27.0) mg/dL Creatinine 10.3 H* (0.6-1.5) mg/dL Est GFR (CKD-EPI)AfAm 6.1 L (60.0-200.0) Est GFR (CKD-EPI)NonAf 5.3 L (60.0-200.0) BUN/Creatinine Ratio 4.83 L (12.00-20.00) Ratio Magnesium 2.6 H (1.5-2.4) mg/dL 05/13/21 Range/Units 06:28 WBC (3.8-10.6) k/uL RBC (4.30-5.90) m/uL Hgb (13.0-17.5) gm/dL Hct (39.0-53.0) % MCV (80.0-100.0) fL MCHC (31.0-37.0) g/dL RDW (11.5-14.5) % Plt Count (150-450) k/uL Absolute Nucleated RBC (0.00-0.00) X 10*3/uL Immature Gran # (0.00-0.04) X 10*3/uL Neutrophils # (1.80-7.70) X 10*3/uL Lymphocytes # (1.0-4.8) k/uL NRBC/100 WBC Diff (0.0-0.0) /100 WBCS Macrocytosis BUN 62.6 H (9.0-27.0) mg/dL Creatinine 12.0 H* (0.6-1.5) mg/dL Est GFR (CKD-EPI)AfAm 5.1 L (60.0-200.0) Est GFR (CKD-EPI)NonAf 4.4 L (60.0-200.0) BUN/Creatinine Ratio 5.22 L (12.00-20.00) Ratio Magnesium 2.8 H (1.5-2.4) mg/dL Microbiology - Last 24 Hours (Table) 05/11/21 06:24 Blood Culture - Preliminary Blood No Growth after 48 hours 05/08/21 14:35 Blood Culture - Preliminary Blood No Growth after 96 hours 05/08/21 14:15 Blood Culture - Preliminary Blood No Growth after 96 hours 05/10/21 12:18 Blood Culture - Preliminary Blood No Growth after 48 hours Assessment and Plan Assessment: Gram-positive bacteremia with acid-fast bacilli, concerning for Nocardia End-stage renal disease status post failed kidney transplant Immunocompromised state -Admit to inpatient, telemetry -ID consult for bacteremia -Vascular consult for catheter exchange, removed on 05/10 -Nephrology consult for end-stage renal disease management -Amikacin, Imipenem -Repeat blood cultures, pending -Follow up identification and sensitivities -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, mycobacterium fortuitum, 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 -BCx on 05/03, acid-fast bacilli, growth identified on 05/07 -BCx on 05/04, acid-fast bacilli, growth identified on 05/10 -BCx on 05/08, NGTD -BCx on 05/10, NGTD, permacath removed -BCx on 05/11, NGTD -BCx on 05/12, pending -BCx on 05/13, pending -Continue to hold cyclosporine -Continue prednisone -echo to r/o endocarditis, shows thickened MV -cardiology consulted for MUNDO -Tagged WBC scan to look for source of infx, pending Paroxysmal atrial fibrillation, rate controlled -not on AC due to low CHADS-VASc of 1 -continue metoprolol Anemia of chronic disease Hypothyroidism ALLERGIC rhinitis Gout -Home medications reviewed and reconciled Patient is a full code DVT prophylaxis with heparin 3 times a day
--- NOTE | 2021-05-13 12:26 | P.PN ---
Subjective Progress Note Date: 05/13/21 Follow-up for ESRD. Denies any nausea vomiting diarrhea. No fevers chills or Rigers. Objective - Vital Signs Vital signs: Vital Signs Temp 97.5 F L 05/13/21 11:15 Pulse 84 05/13/21 11:15 Resp 18 05/13/21 11:15 BP 145/92 05/13/21 11:15 Pulse Ox 99 05/13/21 11:15 Intake & Output 05/12/21 05/13/21 05/13/21 18:59 06:59 18:59 Intake Total 100 200 Balance 100 200 Weight 83.552 kg Intake: Intake, IV Titration 100 100 Amount Imipenem-Cilastatin 250 100 100 mg In Sodium Chloride 0.9 % 100 ml @ 220 mls/hr IVPB Q12H [facility] Rx#: [id number] Oral 100 Other: Voiding Method Toilet # Voids 1 - Exam No acute distress S1-S2 heard Decrease breath sounds No edema - Labs CBC & Chem 7: 05/13/21 06:28 05/13/21 06:28 Labs: Abnormal Lab Results - Last 24 Hours (Table) 05/12/21 05/12/21 05/13/21 Range/Units 07:09 07:09 06:28 WBC 2.6 L 3.21 L (3.8-10.6) k/uL RBC 2.52 L 2.67 L (4.30-5.90) m/uL Hgb 8.1 L 8.2 L (13.0-17.5) gm/dL Hct 28.4 L 28.4 L (39.0-53.0) % MCV 112.8 H D 106.4 H (80.0-100.0) fL MCHC 28.5 L 28.9 L (31.0-37.0) g/dL RDW 15.3 H (11.5-14.5) % Plt Count 149 L (150-450) k/uL Absolute Nucleated RBC 0.02 H (0.00-0.00) X 10*3/uL Immature Gran # 0.14 H (0.00-0.04) X 10*3/uL Neutrophils # 1.63 L (1.80-7.70) X 10*3/uL Lymphocytes # 0.9 L (1.0-4.8) k/uL NRBC/100 WBC Diff 0.6 H (0.0-0.0) /100 WBCS Macrocytosis Marked A BUN 49.7 H (9.0-27.0) mg/dL Creatinine 10.3 H* (0.6-1.5) mg/dL Est GFR (CKD-EPI)AfAm 6.1 L (60.0-200.0) Est GFR (CKD-EPI)NonAf 5.3 L (60.0-200.0) BUN/Creatinine Ratio 4.83 L (12.00-20.00) Ratio Magnesium 2.6 H (1.5-2.4) mg/dL 05/13/21 Range/Units 06:28 WBC (3.8-10.6) k/uL RBC (4.30-5.90) m/uL Hgb (13.0-17.5) gm/dL Hct (39.0-53.0) % MCV (80.0-100.0) fL MCHC (31.0-37.0) g/dL RDW (11.5-14.5) % Plt Count (150-450) k/uL Absolute Nucleated RBC (0.00-0.00) X 10*3/uL Immature Gran # (0.00-0.04) X 10*3/uL Neutrophils # (1.80-7.70) X 10*3/uL Lymphocytes # (1.0-4.8) k/uL NRBC/100 WBC Diff (0.0-0.0) /100 WBCS Macrocytosis BUN 62.6 H (9.0-27.0) mg/dL Creatinine 12.0 H* (0.6-1.5) mg/dL Est GFR (CKD-EPI)AfAm 5.1 L (60.0-200.0) Est GFR (CKD-EPI)NonAf 4.4 L (60.0-200.0) BUN/Creatinine Ratio 5.22 L (12.00-20.00) Ratio Magnesium 2.8 H (1.5-2.4) mg/dL Microbiology - Last 24 Hours (Table) 05/11/21 06:24 Blood Culture - Preliminary Blood No Growth after 48 hours 05/08/21 14:35 Blood Culture - Preliminary Blood No Growth after 96 hours 05/08/21 14:15 Blood Culture - Preliminary Blood No Growth after 96 hours 05/10/21 12:18 Blood Culture - Preliminary Blood No Growth after 48 hours Assessment and Plan Assessment: #1 ESRD on home hemodialysis. #2 acid-fast mycobacterium bacteremia #3 anemia with chronic kidney disease #4 hypertension with chronic kidney disease #5 failed renal transplant currently on 10 mg prednisone #6 metabolic bone disease Plan: #1 electrolytes stable, monitor daily for need for dialysis. No acute indication for dialysis today. #2 iron saturation of 22%, high ferritin. On darbepoetin 60 g every weekly. Goal hemoglobin of 10-11. #3 antibiotics as per infectious disease. Discussed with infectious disease, advised to hold off permacath until Friday if possible #4 daily labs
--- NOTE | 2021-05-13 12:32 | P.CRDCN ---
History of Present Illness History of present illness: HISTORY OF PRESENTING ILLNESS This is a pleasant 50-year-old male past medical history significant for ESRD on hemodialysis, kidney transplant 20 years ago, GERD, paroxysmal atrial fibrillat ion initally diagnosed at age 15, hypothyroidism. Recent admission a Cesilia one month ago for Shingles. He does not follow with a technical solution architect. We have been asked to see in consultation for MUNDO. He is currently being treated for bacteremia from his dialysis catheter which has been removed. He had an echo that showed a possible vegetation on the mitral valve, EF 55-60% and aortic stenosis with mean gradient of 18 mmHg. DIAGNOSTICS EKG reveals atrial fibrillation heart rate 110. Chest xray no acute cardiopulmonary process Laboratory reviewed, WBC 3, hemoglobin 8.2, platelets 143,sodium 142, potassium 4.3, creatinine 12. Current home cardiac medications include metoprolol 25 mg PRN and aspirin 81 mg daily. REVIEW OF SYSTEMS At the time of my exam: CONSTITUTIONAL: Denies fever or chills. CARDIOVASCULAR: Denies chest pain, shortness of breath, orthopnea, PND or palpitations. RESPIRATORY: Denies cough. GASTROINTESTINAL: Denies abdominal pain, diarrhea, constipation, nausea or vomiting. MUSCULOSKELETAL: Denies myalgias. NEUROLOGIC: Denies numbness, tingling, headache or weakness. ENDOCRINE: Denies fatigue, weight change, polydipsia or polyurina. GENITOURINARY: Denies burning, hematuria or urgency with micturation. HEMATOLOGIC: Denies history of anemia or bleeding. PHYSICAL EXAMINATION Blood pressure 145/92 heart rate 84 afebrile and maintaining oxygen saturation on room air CONSTITUTIONAL: No apparent distress. HEENT: Head is normocephalic. Pupils are equal, round. Sclerae anicteric. Mucous membranes of the mouth are moist. No JVD. No carotid bruit. CHEST EXAMINATION: Lungs are clear to auscultation. No chest wall tenderness is noted on palpation or with deep breathing. HEART EXAMINATION: Regular rate and rhythm. S1, S2 heard. Systolic ejection murmur noted at apex and base ABDOMEN: Soft, nontender. Positive bowel sounds. EXTREMITIES: 2+ peripheral pulses, no lower extremity edema and no calf tenderness. SKIN: warm, dry NEUROLOGIC EXAMINATION: Patient is awake, alert and oriented x3. ASSESSMENT Bacteremia Paroxysmal atrial fibrillation -[id number] score 1 End stage renal disease on hemodialysis History of kidney transplant 20 years ago GERD Hypothyroidism Aortic Stenosis Mitral regurgitation PLAN CHADS-VASC score is 1, he is not on anti-coagulation. MUNDO tomorrow. I have discussed the risks, benefits and alternative therapies for the above-m entioned procedure and for both sedation/analgesia. The patient has indicated understanding and acceptance of the risks and procedures discussed. Thank you kindly for this consultation. Nurse practitioner note has been reviewed by physician. Signing provider agrees with the documented findings, assessment, and plan of care. Past Medical History Past Medical History: Atrial Fibrillation, GERD/Reflux, Renal Disease, Thyroid Disorder Additional Past Medical History / Comment(s): dialysis M/W/T/TH/SAT, diverticulitis , blind, shingles in February History of Any Multi-Drug Resistant Organisms: None Reported Additional Past Surgical History / Comment(s): fistula placement , thyroidectomy Past Anesthesia/Blood Transfusion Reactions: Previous Problems w/ Anesthesia Additional Past Anesthesia/Blood Transfusion Reaction / Comment(s): Pt has his surgery done with local anesthetics d/t general anesthesia causing facial edema and difficulty waking. Past Psychological History: No Psychological Hx Reported Smoking Status: Never smoker Past Alcohol Use History: None Reported Past Drug Use History: None Reported - Past Family History Mother Family Medical History: Fibromyalgia, Osteoarthritis (OA) Additional Family Medical History / Comment(s): Lupus Family Family Medical History: No Reported History Additional Family Medical History / Comment(s): ETOH abuse Medications and Allergies Home Medications Medication Instructions Recorded Confirmed Type ALPRAZolam [Xanax] 0.5 mg PO HS 12/18/17 05/08/21 History Levothyroxine Sodium [Synthroid] 50 mcg PO DAILY 12/18/17 05/08/21 History Montelukast [Singulair] 10 mg PO HS 12/18/17 05/08/21 History allopurinoL [Zyloprim] 100 mg PO DAILY 12/18/17 05/08/21 History Cholecalciferol [Vitamin D3 (25 50 mcg PO Q48H 04/25/21 05/08/21 History Mcg = 1000 Iu)] Magnesium Oxide [Magox 400] 400 mg PO DAILY 04/25/21 05/08/21 History predniSONE 10 mg PO DAILY 04/25/21 05/08/21 History Aspirin EC [Ecotrin Low Dose] 324 mg PO DAILY 05/03/21 05/08/21 History Epoetin Martin [Epogen] 9,000 unit SQ MOTUSA 05/08/21 05/08/21 History Metoprolol Tartrate [Lopressor] 12.5 mg PO DAILY PRN 05/08/21 05/08/21 History Allergies Allergy/AdvReac Type Severity Reaction Status Date / Time codeine Allergy Rash/Hives Verified 05/08/21 15:34 cyclobenzaprine Allergy Rash/Hives Verified 05/08/21 15:34 [From Flexeril] diphenhydramine Allergy Anaphylaxis Verified 05/08/21 15:34 [From Benadryl] hydromorphone [From Dilaudid] Allergy Rash/Hives Verified 05/08/21 15:34 hydroxyzine Allergy Anaphylaxis Verified 05/08/21 15:34 Iodinated Contrast Media Allergy Anaphylaxis Verified 05/08/21 15:34 [Iodinated Contrast- Oral and IV Dye] latex Allergy Rash/Hives Verified 05/08/21 15:34 pantoprazole [From Protonix] Allergy Anaphylaxis Verified 05/08/21 15:34 Penicillins Allergy Rash/Hives Verified 05/08/21 15:34 potassium chloride Allergy Rash/Hives Verified 05/08/21 15:34 pregabalin [From Lyrica] Allergy Anaphylaxis Verified 05/08/21 15:34 sevelamer Allergy Rash/Hives Verified 05/08/21 15:34 warfarin [From Coumadin] Allergy Anaphylaxis Verified 05/08/21 15:34 acetaminophen [From Vicodin] AdvReac Nausea & Verified 05/08/21 15:34 Vomiting aripiprazole [From Abilify] AdvReac Abdominal Verified 05/08/21 15:34 Pain aztreonam AdvReac Unknown Verified 05/08/21 15:34 calcitriol AdvReac Unknown Verified 05/08/21 15:34 cefadroxil AdvReac Unknown Verified 05/08/21 15:34 enalapril AdvReac Unknown Verified 05/08/21 15:34 hydrocodone [From Vicodin] AdvReac Nausea & Verified 05/08/21 15:34 Vomiting Influenza Virus Vaccines AdvReac Unknown Verified 05/08/21 15:34 levofloxacin [From Levaquin] AdvReac Abdominal Verified 05/08/21 15:34 Pain meloxicam [From Mobic] AdvReac Abdominal Verified 05/08/21 15:34 Pain morphine AdvReac Unknown Verified 05/08/21 15:34 propoxyphene AdvReac Unknown Verified 05/08/21 15:34 Sulfa (Sulfonamide AdvReac Vomiting Verified 05/08/21 15:34 Antibiotics) tramadol AdvReac Unknown Verified 05/08/21 15:34 Physical Exam Vitals: Vital Signs Temp Pulse Resp BP BP Pulse Ox 05/13/21 11:15 97.5 F L 84 18 145/92 99 05/13/21 07:00 96 05/13/21 05:00 97.9 F 95 20 124/83 97 05/12/21 20:00 20 05/12/21 19:45 97.9 F 87 20 131/82 98 Intake and Output 05/12/21 05/13/21 05/13/21 22:59 06:59 14:59 Intake Total 100 200 Balance 100 200 Intake: Intake, IV Titration 100 100 Amount Imipenem-Cilastatin 250 100 100 mg In Sodium Chloride 0.9 % 100 ml @ 220 mls/hr IVPB Q12H [facility] Rx#: [id number] Oral 100 Other: Voiding Method Toilet # Voids 1 Weight 83.552 kg Results 05/13/21 06:28 05/13/21 06:28 CBC 05/12/21 05/13/21 Range/Units 07:09 06:28 WBC 2.6 L 3.21 L (3.8-10.6) k/uL RBC 2.52 L 2.67 L (4.30-5.90) m/uL Hgb 8.1 L 8.2 L (13.0-17.5) gm/dL Hct 28.4 L 28.4 L (39.0-53.0) % Plt Count 149 L 143 (150-450) k/uL Comprehensive Metabolic Panel 05/12/21 05/13/21 Range/Units 07:09 06:28 Sodium 141 142 (135-145) mmol/L Potassium 4.1 4.3 (3.5-5.5) mmol/L Chloride 105 104 (96-109) mmol/L Carbon Dioxide 20.8 20.8 (20.0-27.5) mmol/L BUN 49.7 H 62.6 H (9.0-27.0) mg/dL Creatinine 10.3 H* 12.0 H* (0.6-1.5) mg/dL Glucose 80 82 (70-110) mg/dL Calcium 8.9 8.8 (8.7-10.3) mg/dL Current Medications Generic Name Dose Route Start Last Admin Trade Name Freq PRN Reason Stop Dose Admin Acetaminophen 650 mg 05/08/21 15:08 Acetaminophen Tab 325 Mg Tab PO Q6HR PRN Mild Pain or Fever > 100.5 Allopurinol 100 mg 05/09/21 09:00 05/13/21 08:41 Allopurinol 100 Mg Tab PO 100 mg DAILY [facility] Administration Alprazolam 0.5 mg 05/08/21 21:00 05/12/21 20:16 Alprazolam 0.5 Mg Tab PO 0.5 mg HS [facility] Administration Cholecalciferol 50 mcg 05/10/21 09:00 05/12/21 09:07 Cholecalciferol 25 Mcg (1000 Iu) Tablet PO 50 mcg Q48H [facility] Administration Darbepoetin Martin 60 mcg 05/12/21 15:30 05/12/21 17:36 Darbepoetin Martin 60 Mcg/0.3 Ml Syringe SQ 60 mcg Q7D [facility] Administration Heparin Sodium (Porcine) 5,000 unit 05/08/21 16:00 05/13/21 08:40 Heparin Sodium,Porcine/Pf 5,000 Unit/0.5 Ml Syringe SQ 5,000 unit Q8HR [facility] Administration Imipenem/Cilastatin Sodium 250 110 mls @ 220 mls/hr 05/11/21 15:00 05/13/21 02:47 mg/ Sodium Chloride IVPB 220 mls/hr Q12H [facility] Administration Levothyroxine Sodium 50 mcg 05/09/21 06:30 05/13/21 08:41 Levothyroxine 50 Mcg Tab PO 50 mcg DAILY@0630 [facility] Administration Metoprolol Tartrate 12.5 mg 05/08/21 21:30 05/13/21 08:41 Metoprolol Tartrate 12.5 Mg Tab PO 12.5 mg BID [facility] Administration Miscellaneous Information 1 each 05/11/21 08:34 Amikacin Iv Per Pharmacy 1 Each Misc MISCELLANE DIRECTED PRN DOSE BY LEVEL Montelukast Sodium 10 mg 05/08/21 21:00 05/12/21 20:16 Montelukast 10 Mg Tab PO 10 mg HS [facility] Administration Naloxone HCl 0.2 mg 05/08/21 14:52 Naloxone 0.4 Mg/Ml 1 Ml Vial IV Q2M PRN Opioid Reversal Prednisone 10 mg 05/09/21 09:00 05/13/21 08:42 Prednisone 10 Mg Tab PO 10 mg DAILY [facility] Administration Sodium Bicarbonate 1,300 mg 05/13/21 12:30 Sodium Bicarbonate Tab 650 Mg Tab PO BID [facility] Intake and Output 05/12/21 05/13/21 05/13/21 22:59 06:59 14:59 Intake Total 100 200 Balance 100 200 Intake: Intake, IV Titration 100 100 Amount Imipenem-Cilastatin 250 100 100 mg In Sodium Chloride 0.9 % 100 ml @ 220 mls/hr IVPB Q12H [facility] Rx#: [id number] Oral 100 Other: Voiding Method Toilet # Voids 1 Weight 83.552 kg 05/13/21 06:28 05/13/21 06:28
[2021-05-13] MEDS: SODIUM BICARBONATE TAB 650 MG TAB PO SCH ×2 (13:29→21:01)
--- NOTE | 2021-05-13 14:05 | P.PN ---
Subjective Progress Note Date: 05/13/21 patient seen and examined. No events overnight. Doing well since catheter removal. Objective - Vital Signs Vital signs: Vital Signs Temp 97.5 F L 05/13/21 11:15 Pulse 84 05/13/21 11:15 Resp 18 05/13/21 11:15 BP 145/92 05/13/21 11:15 Pulse Ox 99 05/13/21 11:15 Intake & Output 05/12/21 05/13/21 05/13/21 18:59 06:59 18:59 Intake Total 100 200 Balance 100 200 Weight 83.552 kg Intake: Intake, IV Titration 100 100 Amount Imipenem-Cilastatin 250 100 100 mg In Sodium Chloride 0.9 % 100 ml @ 220 mls/hr IVPB Q12H [facility] Rx#: [id number] Oral 100 Other: Voiding Method Toilet # Voids 1 - Exam previous catheter site clean, dry and intact. No hematoma. - Labs CBC & Chem 7: 05/13/21 06:28 05/13/21 06:28 Labs: Abnormal Lab Results - Last 24 Hours (Table) 05/12/21 05/12/21 05/13/21 Range/Units 07:09 07:09 06:28 WBC 3.21 L (4.50-10.00) X 10*3/uL RBC 2.67 L (4.40-5.60) X 10*6/uL Hgb 8.2 L (13.0-17.0) g/dL Hct 28.4 L (39.6-50.0) % MCV 106.4 H (80.0-97.0) fL MCHC 28.9 L (32.0-37.0) g/dL RDW 15.3 H (11.5-14.5) % Absolute Nucleated RBC 0.02 H (0.00-0.00) X 10*3/uL Immature Gran # 0.14 H (0.00-0.04) X 10*3/uL Neutrophils # 1.63 L (1.80-7.70) X 10*3/uL Lymphocytes # 0.9 L (1.0-4.8) k/uL NRBC/100 WBC Diff 0.6 H (0.0-0.0) /100 WBCS BUN 49.7 H (9.0-27.0) mg/dL Creatinine 10.3 H* (0.6-1.5) mg/dL Est GFR (CKD-EPI)AfAm 6.1 L (60.0-200.0) Est GFR (CKD-EPI)NonAf 5.3 L (60.0-200.0) BUN/Creatinine Ratio 4.83 L (12.00-20.00) Ratio Magnesium 2.6 H (1.5-2.4) mg/dL 05/13/21 Range/Units 06:28 WBC (4.50-10.00) X 10*3/uL RBC (4.40-5.60) X 10*6/uL Hgb (13.0-17.0) g/dL Hct (39.6-50.0) % MCV (80.0-97.0) fL MCHC (32.0-37.0) g/dL RDW (11.5-14.5) % Absolute Nucleated RBC (0.00-0.00) X 10*3/uL Immature Gran # (0.00-0.04) X 10*3/uL Neutrophils # (1.80-7.70) X 10*3/uL Lymphocytes # (1.0-4.8) k/uL NRBC/100 WBC Diff (0.0-0.0) /100 WBCS BUN 62.6 H (9.0-27.0) mg/dL Creatinine 12.0 H* (0.6-1.5) mg/dL Est GFR (CKD-EPI)AfAm 5.1 L (60.0-200.0) Est GFR (CKD-EPI)NonAf 4.4 L (60.0-200.0) BUN/Creatinine Ratio 5.22 L (12.00-20.00) Ratio Magnesium 2.8 H (1.5-2.4) mg/dL Microbiology - Last 24 Hours (Table) 05/11/21 06:24 Blood Culture - Preliminary Blood No Growth after 48 hours 05/08/21 14:35 Blood Culture - Preliminary Blood No Growth after 96 hours 05/08/21 14:15 Blood Culture - Preliminary Blood No Growth after 96 hours 05/10/21 12:18 Blood Culture - Preliminary Blood No Growth after 48 hours Assessment and Plan Assessment: 1. Gram-positive Bacteremia with acid-fast bacilli, presumed source hemodialysis catheter status post removal 2. End-stage renal disease on hemodialysis post kidney transplant 3. Immunocompromised state 4. Legally blind Plan: Plan: 1. Continue with recommendations from infectious disease and antibiotics 2. Continue with hemodialysis per recommendations from nephrology. Will place catheter once cultures negative. 3. Continue medical management
[2021-05-13] MEDS: ALPRAZolam 0.5 MG TAB PO SCH (21:01)
[2021-05-13] MEDS: MONTELUKAST 10 MG TAB PO SCH (21:01)
--- NOTE | 2021-05-13 22:44 | P.PN ---
Subjective Progress Note Date: 05/13/21 Principal diagnosis: Bacteremia secondary to dialysis catheter infection Patient is a 50 year male readmitted to the hospital with a positive blood culture concerning for dialysis cath tract infection with the patient was elected to have taken out on his last admission. Patient is status post removal of the infected dialysis catheter on 05/10/2021 On today's evaluation that is 05/13/2021, the patient continues to be afebrile, patient denies having any chest pain or shortness of breath or cough , the patient denies nausea no vomiting no abdominal pain and no diarrhea with antibiotic therapy, patient is feeling better Objective - Vital Signs Vital signs: Vital Signs Temp 97.9 F 05/13/21 20:05 Pulse 93 05/13/21 20:05 Resp 16 05/13/21 20:05 BP 153/100 05/13/21 20:05 Pulse Ox 100 05/13/21 20:05 Intake & Output 05/13/21 05/13/21 05/14/21 06:59 18:59 06:59 Intake Total 200 100 Balance 200 100 Weight 83.552 kg Intake: Intake, IV Titration 100 100 Amount Imipenem-Cilastatin 250 100 100 mg In Sodium Chloride 0.9 % 100 ml @ 220 mls/hr IVPB Q12H [facility] Rx#: [id number] Oral 100 Other: Voiding Method Toilet # Voids 1 - Exam GENERAL DESCRIPTION: Middle-aged male lying in bed in no distress RESPIRATORY SYSTEM: Unlabored breathing , decreased breath sounds at bases HEART: S1 S2 regular rate and rhythm , ABDOMEN: Soft , no tenderness EXTREMITIES: No edema feet - Labs CBC & Chem 7: 05/13/21 06:28 05/13/21 06:28 Labs: Abnormal Lab Results - Last 24 Hours (Table) 05/13/21 05/13/21 Range/Units 06:28 06:28 WBC 3.21 L (4.50-10.00) X 10*3/uL RBC 2.67 L (4.40-5.60) X 10*6/uL Hgb 8.2 L (13.0-17.0) g/dL Hct 28.4 L (39.6-50.0) % MCV 106.4 H (80.0-97.0) fL MCHC 28.9 L (32.0-37.0) g/dL RDW 15.3 H (11.5-14.5) % Absolute Nucleated RBC 0.02 H (0.00-0.00) X 10*3/uL Immature Gran # 0.14 H (0.00-0.04) X 10*3/uL Neutrophils # 1.63 L (1.80-7.70) X 10*3/uL NRBC/100 WBC Diff 0.6 H (0.0-0.0) /100 WBCS BUN 62.6 H (9.0-27.0) mg/dL Creatinine 12.0 H* (0.6-1.5) mg/dL Est GFR (CKD-EPI)AfAm 5.1 L (60.0-200.0) Est GFR (CKD-EPI)NonAf 4.4 L (60.0-200.0) BUN/Creatinine Ratio 5.22 L (12.00-20.00) Ratio Magnesium 2.8 H (1.5-2.4) mg/dL Microbiology - Last 24 Hours (Table) 05/08/21 14:35 Blood Culture - Preliminary Blood No Growth after 120 hours 05/08/21 14:15 Blood Culture - Preliminary Blood No Growth after 120 hours 05/10/21 12:18 Blood Culture - Preliminary Blood No Growth after 72 hours 05/12/21 11:56 Blood Culture - Preliminary Blood No Growth after 24 hours 05/11/21 06:24 Blood Culture - Preliminary Blood No Growth after 48 hours Assessment and Plan (1) Bacteremia Current Visit: Yes Status: Acute Code(s): R78.81 - BACTEREMIA SNOMED Code(s): 5578699 Plan: Patient with gram-positive branching bacilli/acid fast with initial concern for possible nocardia, patient due have multiple antibiotic ALLERGIES, the patient did have removal of the infected dialysis catheter this morning , patient cultures done at [facility] has been finalized with Mycobacterium [place] , patient is currently being treated imipenem and amikacin pharmacy to dose per guidelines, echocardiogram did show some thickened mitral VALVE and the patient will benefit from MUNDO, WBC scan is pending repeat blood cultures done on 05/08/2021 has been negative we will wait for at least 05/14/2021 and if those blood culture negative may be able to get up dialysis catheter on 05/15/2021, this was discussed with the nephrology team as well as with the patient Time with Patient: Less than 30
[2021-05-14] MEDS: LEVOTHYROXINE 50 MCG TAB PO SCH (02:49)
[2021-05-14] MEDS: SODIUM CHLORIDE 0.9% IVPB SCH ×2 (02:50→15:44)
[2021-05-14] MEDS: IMIPENEM CILASTATIN IVPB SCH ×2 (02:50→15:44)
[2021-05-14 07:05] LABS: Anion Gap 12 mmol/L; Blood Urea Nitrogen 79 mg/dL (9-20); Calcium 8.2 mg/dL (8.4-10.2); Carbon Dioxide 20 mmol/L (22-30); Chloride 108 mmol/L (98-107); Glucose 76 mg/dL (74-99); Potassium 4.6 mmol/L (3.5-5.1); Sodium 140 mmol/L (137-145)
[2021-05-14 07:12] LABS: African American GFR (CKD) 4 (>60 ml/min/1.73 sqM); Non-African American GFR(CKD) 4 (>60 ml/min/1.73 sqM)
[2021-05-14] MEDS ORDERED: fentaNYL (PF) 50 MCG/ML 2 ML AMP ONE (07:56)
[2021-05-14] MEDS ORDERED: BENZOCAINE SPRAY 1 CAN MUCOUS MEM ONE (08:25)
[2021-05-14] MEDS ORDERED: IV FLUID CONTINUATION 1,000 ML IV ONE (08:26)
[2021-05-14] MEDS ORDERED: fentaNYL (PF) 50 MCG/ML 2 ML AMP IVP ONE (08:31)
[2021-05-14] MEDS: MIDAZOLAM 2 MG/2 ML VIAL IVP ONE ×2 (08:31→08:33)
--- NOTE | 2021-05-14 08:56 | P.TEE ---
Indications for Procedure(s): Rule out endocarditis. History of positive blood cultures and suspected dialysis catheter infection Date of Procedure: 05/14/21 Preoperative Diagnosis: Positive blood cultures, rule out endocarditis Postoperative Diagnosis: No evidence of vegetation on the cardiac valves. Moderate aortic stenosis and one to 2+ mitral regurg Procedure(s) Performed: MUNDO Description of Procedure(s): INDICATION: Rule out endocarditis CONSENT: Informed verbal consent is obtained from the patient PROCEDURE: Patient was brought to the lab in fasting state. He was prepped and draped in the usual fashion. Patient was given 2 mg of Versed and 25 g of fentanyl for sedation. The throat was sprayed with Hurricaine. A lubricated Omni probe was introduced into the oropharynx and was advanced into the esophagus. Multiple views were obtained both from stomach and esophagus. Color, pulsed and continuous her Doppler studies were done. Saline contrast bubble injections performed. Patient tolerated the procedure well. No immediate complications. Patient was sent to the room in a stable condition FINDINGS: . The aortic valve showed mild sclerosis with reduced opening excursion. By planimetry, valve area 0.5 to 0.6 was obtained. However, the views were suboptimal. A peak gradient of about 45 [average] remained gradient of about 25-30 was obtained consistent with moderate aortic stenosis. There is 1-2+ central mitral regurgitation. There is a calcification of the mitral annulus and leaflet without any definite vegetation. Tricuspid valve did not show any vegetation. Interatrial septum is intact without any shunt. Saline contrast bubble injection did not reveal any shunting. Biatrial enlargement is noted. Left atrial appendage is free of any clot. Left ventricular function appeared to be fair IMPRESSION: #1. No definite vegetation noted on the study #2. Mitral valve calcification and also calcination thickening of the leaflets with 1-2+ regurgitation #3. Mild calcification of the aortic valve leaflets with reduced opening discussion consistent with moderate aortic stenosis. #4. Mitral enlargement. #5. No clot in the left atrial appendage. #6. No PFO #7. No significant plaque in the aorta. #8. Left ankle function is fair PLAN: . Continue current medical therapy. Follow with serial echoes for aortic stenosis
--- NOTE | 2021-05-14 09:17 | P.PN ---
Subjective Progress Note Date: 05/14/21 No new complaints today. BCx remain negative. MUNDO done today without any evidence of vegetation, but + MV thickening, +mod aortic stenosis, good EF, no WMA. Pending WBC tagged study today. Objective - Vital Signs Vital signs: Vital Signs Temp 97.4 F L 05/14/21 05:00 Pulse 83 05/14/21 08:46 Resp 16 05/14/21 08:46 BP 165/98 05/14/21 08:46 Pulse Ox 100 05/14/21 08:46 Intake & Output 05/13/21 05/14/21 05/14/21 18:59 06:59 18:59 Intake Total 100 930 20 Balance 100 930 20 Intake: IV 20 Intake, IV Titration 100 100 Amount Imipenem-Cilastatin 250 100 100 mg In Sodium Chloride 0.9 % 100 ml @ 220 mls/hr IVPB Q12H [facility] Rx#: [id number] Oral 830 Other: Voiding Method Toilet Toilet # Voids 2 - Exam Gen: awake, alert HEENT: normocephalic, atraumatic, good hearing acuity, moist mucous membranes Resp: good air exchange, breathing comfortably with no accessory muscle use, clear to auscultation CVS: good distal perfusion x 4, regular rate and rhythm without murmurs GI: soft, NTTP, ND : no SPT, no CVAT, sargent catheter not present MSK: no pitting edema, no clubbing Neuro: non-focal, moving all extremities Psych: cooperative, euthymic mood - Labs CBC & Chem 7: 05/13/21 06:28 05/14/21 06:18 Labs: Abnormal Lab Results - Last 24 Hours (Table) 05/13/21 05/14/21 Range/Units 06:28 06:18 Chloride 108 H (98-107) mmol/L Carbon Dioxide 20 L (22-30) mmol/L BUN 62.6 H 79 H (9.0-27.0) mg/dL Creatinine 12.0 H* 14.25 H* (0.6-1.5) mg/dL Est GFR (CKD-EPI)AfAm 5.1 L (60.0-200.0) Est GFR (CKD-EPI)NonAf 4.4 L (60.0-200.0) BUN/Creatinine Ratio 5.22 L (12.00-20.00) Ratio Calcium 8.2 L (8.4-10.2) mg/dL Magnesium 2.8 H (1.5-2.4) mg/dL Microbiology - Last 24 Hours (Table) 05/13/21 06:28 Blood Culture - Preliminary Blood No Growth after 24 hours 05/11/21 06:24 Blood Culture - Preliminary Blood No Growth after 72 hours 05/08/21 14:35 Blood Culture - Preliminary Blood No Growth after 120 hours 05/08/21 14:15 Blood Culture - Preliminary Blood No Growth after 120 hours 05/10/21 12:18 Blood Culture - Preliminary Blood No Growth after 72 hours 05/12/21 11:56 Blood Culture - Preliminary Blood No Growth after 24 hours Assessment and Plan Assessment: Gram-positive bacteremia with acid-fast bacilli, concerning for Nocardia End-stage renal disease status post failed kidney transplant Immunocompromised state -Admit to inpatient, telemetry -ID consult for bacteremia -Vascular consult for catheter exchange, removed on 05/10 -Nephrology consult for end-stage renal disease management -Amikacin, Imipenem -Repeat blood cultures, pending -Follow up identification and sensitivities -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, mycobacterium fortuitum, 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 -BCx on 05/03, acid-fast bacilli, growth identified on 05/07 -BCx on 05/04, acid-fast bacilli, growth identified on 05/10 -BCx on 05/08, NGTD -BCx on 05/10, NGTD, permacath removed -BCx on 05/11, NGTD -BCx on 05/12, NGTD -BCx on 05/13, NGTD -Continue to hold cyclosporine -Continue prednisone -echo to r/o endocarditis, shows thickened MV -cardiology consulted for MUNDO, no vegetation, MV calcification with central MR, mod aortic stenosis, no clot, no PFO -Tagged WBC scan to look for source of infx, pending Paroxysmal atrial fibrillation, rate controlled -not on AC due to low CHADS-VASc of 1 -continue metoprolol Anemia of chronic disease Hypothyroidism ALLERGIC rhinitis Gout -Home medications reviewed and reconciled Patient is a full code DVT prophylaxis with heparin 3 times a day
[2021-05-14] MEDS: SODIUM BICARBONATE TAB 650 MG TAB PO SCH ×2 (09:32→20:37)
[2021-05-14] MEDS: CHOLECALCIFEROL 25 MCG (1000 IU) TABLET PO SCH (09:32)
[2021-05-14] MEDS: METOPROLOL TARTRATE 12.5 MG TAB PO SCH ×2 (09:32→20:36)
[2021-05-14] MEDS: predniSONE 10 MG TAB PO SCH (09:33)
[2021-05-14] MEDS: allopurinoL 100 MG TAB PO SCH (09:33)
[2021-05-14] MEDS: HEPARIN SODIUM,PORCINE/PF 5,000 UNIT/0.5 ML SYRINGE SQ SCH ×3 (09:33→20:37)
[2021-05-14] MEDS ORDERED: hydrALAZINE HCL 20 MG/ML 1 ML VIAL IVP PRN (09:41)
--- NOTE | 2021-05-14 09:42 | P.PN ---
Subjective Patient is seen in follow-up for end-stage renal disease. He is maintained on home hemodialysis via permacath. Permacath removed 05/10/2021 due to positive blood cultures. Last hemodialysis was May 10. Denies chest pain or shortness of breath. No active complaints. Vital signs are stable. General: The patient appeared well nourished and normally developed. HEENT: Head exam is unremarkable. LUNGS: Breath sounds decreased. HEART: Rate and Rhythm are regular. ABDOMEN: Soft, no distention. EXTREMITITES: No edema. Objective - Vital Signs Vital signs: Vital Signs Temp 97.4 F L 05/14/21 05:00 Pulse 83 05/14/21 08:46 Resp 16 05/14/21 08:46 BP 165/98 05/14/21 08:46 Pulse Ox 100 05/14/21 08:46 Intake & Output 05/13/21 05/14/21 05/14/21 18:59 06:59 18:59 Intake Total 100 930 20 Balance 100 930 20 Intake: IV 20 Intake, IV Titration 100 100 Amount Imipenem-Cilastatin 250 100 100 mg In Sodium Chloride 0.9 % 100 ml @ 220 mls/hr IVPB Q12H [facility] Rx#: [id number] Oral 830 Other: Voiding Method Toilet Toilet # Voids 2 - Labs CBC & Chem 7: 05/13/21 06:28 05/14/21 06:18 Labs: Abnormal Lab Results - Last 24 Hours (Table) 05/13/21 05/14/21 Range/Units 06:28 06:18 Chloride 108 H (98-107) mmol/L Carbon Dioxide 20 L (22-30) mmol/L BUN 62.6 H 79 H (9.0-27.0) mg/dL Creatinine 12.0 H* 14.25 H* (0.6-1.5) mg/dL Est GFR (CKD-EPI)AfAm 5.1 L (60.0-200.0) Est GFR (CKD-EPI)NonAf 4.4 L (60.0-200.0) BUN/Creatinine Ratio 5.22 L (12.00-20.00) Ratio Calcium 8.2 L (8.4-10.2) mg/dL Magnesium 2.8 H (1.5-2.4) mg/dL Microbiology - Last 24 Hours (Table) 05/13/21 06:28 Blood Culture - Preliminary Blood No Growth after 24 hours 05/11/21 06:24 Blood Culture - Preliminary Blood No Growth after 72 hours 05/08/21 14:35 Blood Culture - Preliminary Blood No Growth after 120 hours 05/08/21 14:15 Blood Culture - Preliminary Blood No Growth after 120 hours 05/10/21 12:18 Blood Culture - Preliminary Blood No Growth after 72 hours 05/12/21 11:56 Blood Culture - Preliminary Blood No Growth after 24 hours Assessment and Plan Plan: Assessment: 1. End-stage renal disease maintained on home hemodialysis. 2. Gram-positive bacteremia status post removal of permacath on 05/10/2021. On IV antibiotics per ID. 3. Anemia of chronic kidney disease. On Aranesp. 4. History of failed renal transplant. Only on prednisone 10 mg daily - patient states he's unable to get off prednisone. 5. Chronic kidney disease mineral bone disease. PTH 436. 6. Metabolic acidosis secondary to chronic kidney disease on oral bicarbonate. Plan: Scheduled for WBC scan as well as MUNDO today. Follow-up cultures. New permacath to be placed once clearance obtained from infectious disease. Continue to assess daily for need for renal replacement therapy. Add hydralazine 10 mg every 6 hours as needed for systolic blood pressure gre ater than 160. Check phosphorus level.
[2021-05-14] MEDS: SODIUM CHLORIDE 0.9% 1,000 ML IV SCH (14:09)
--- NOTE | 2021-05-14 14:35 | P.PN ---
Subjective Progress Note Date: 05/14/21 The patient was seen and examined without any acute changes. He's been afebrile. P blood cultures have been negative to date. He is scheduled tomorrow for tunneled catheter placement. Objective - Vital Signs Vital signs: Vital Signs Temp 97.5 F L 05/14/21 09:15 Pulse 75 05/14/21 10:28 Resp 18 05/14/21 10:28 BP 133/79 05/14/21 10:28 Pulse Ox 99 05/14/21 10:28 Intake & Output 05/13/21 05/14/21 05/14/21 18:59 06:59 18:59 Intake Total 100 930 20 Balance 100 930 20 Intake: IV 20 Intake, IV Titration 100 100 Amount Imipenem-Cilastatin 250 100 100 mg In Sodium Chloride 0.9 % 100 ml @ 220 mls/hr IVPB Q12H [facility] Rx#: [id number] Oral 830 Other: Voiding Method Toilet Toilet # Voids 2 - Exam General appearance: The patient is alert, oriented, appears in no acute distress. HET: Head is normocephalic and atraumatic. Conjunctiva pink. Sclera anicteric. Neck: Supple without lymphadenopathy. Chest wall: Right IJ tunneled catheter site well approximated without any active bleeding. No redness or drainage noted. Abdomen: Soft, nontender, nondistended with bowel sounds. No guarding or rigidity. Extremities: Normal skin color and turgor. No pedal edema Skin: No rashes, no jaundice Neurological: No focal deficits. Alert and oriented x3. - Labs CBC & Chem 7: 05/13/21 06:28 05/14/21 06:18 Labs: Abnormal Lab Results - Last 24 Hours (Table) 05/13/21 05/14/21 Range/Units 06:28 06:18 Chloride 108 H (98-107) mmol/L Carbon Dioxide 20 L (22-30) mmol/L BUN 62.6 H 79 H (9.0-27.0) mg/dL Creatinine 12.0 H* 14.25 H* (0.6-1.5) mg/dL Est GFR (CKD-EPI)AfAm 5.1 L (60.0-200.0) Est GFR (CKD-EPI)NonAf 4.4 L (60.0-200.0) BUN/Creatinine Ratio 5.22 L (12.00-20.00) Ratio Calcium 8.2 L (8.4-10.2) mg/dL Magnesium 2.8 H (1.5-2.4) mg/dL Microbiology - Last 24 Hours (Table) 05/13/21 06:28 Blood Culture - Preliminary Blood No Growth after 24 hours 05/11/21 06:24 Blood Culture - Preliminary Blood No Growth after 72 hours 05/08/21 14:35 Blood Culture - Preliminary Blood No Growth after 120 hours 05/08/21 14:15 Blood Culture - Preliminary Blood No Growth after 120 hours 05/10/21 12:18 Blood Culture - Preliminary Blood No Growth after 72 hours 05/12/21 11:56 Blood Culture - Preliminary Blood No Growth after 24 hours Assessment and Plan Assessment: 1. Gram-positive Bacteremia with acid-fast bacilli, presumed source hemodialysis catheter status post removal 2. End-stage renal disease on hemodialysis post kidney transplant 3. Immunocompromised state 4. Legally blind Plan: 1. Plan for hemodialysis tunneled catheter placement tomorrow 2. Continue with recommendations from infectious disease and antibiotics 3. Continue medical management 4. Nothing by mouth after midnight Thank you for this consultation, we will continue to follow. The impression and plan of care has been dictated as directed. Dr. Agarwal I performed a history and examination of this patient, discussed the same with the dictator. I agree with the dictator's note ,documented as a scribe. Any additional findings or plans will be noted.
[2021-05-14] MEDS: ALPRAZolam 0.5 MG TAB PO SCH (20:37)
[2021-05-14] MEDS: MONTELUKAST 10 MG TAB PO SCH (20:37)
--- NOTE | 2021-05-14 22:54 | P.PN ---
Subjective Progress Note Date: 05/14/21 Principal diagnosis: Bacteremia secondary to dialysis catheter infection Patient is a 50 year male readmitted to the hospital with a positive blood culture concerning for dialysis cath tract infection with the patient was elected to have taken out on his last admission. Patient is status post removal of the infected dialysis catheter on 05/10/2021, the patient did have a MUNDO completed 05/14/2020 with no evidence of any vegetation On today's evaluation that is 05/14/2021, the patient denies any fever, chills, patient denies having any chest pain or shortness of breath or cough , the patient denies nausea no vomiting no abdominal pain and no diarrhea with antibio tic therapy, patient denies any new symptoms Objective - Vital Signs Vital signs: Vital Signs Temp 97.5 F L 05/14/21 09:15 Pulse 75 05/14/21 10:28 Resp 18 05/14/21 10:28 BP 133/79 05/14/21 10:28 Pulse Ox 99 05/14/21 10:28 Intake & Output 05/13/21 05/14/21 05/14/21 18:59 06:59 18:59 Intake Total 100 930 20 Balance 100 930 20 Intake: IV 20 Intake, IV Titration 100 100 Amount Imipenem-Cilastatin 250 100 100 mg In Sodium Chloride 0.9 % 100 ml @ 220 mls/hr IVPB Q12H [facility] Rx#: [id number] Oral 830 Other: Voiding Method Toilet Toilet # Voids 2 - Exam GENERAL DESCRIPTION: Middle-aged male lying in bed in no distress RESPIRATORY SYSTEM: Unlabored breathing , decreased breath sounds at bases HEART: S1 S2 regular rate and rhythm , ABDOMEN: Soft , no tenderness EXTREMITIES: No edema feet - Labs CBC & Chem 7: 05/13/21 06:28 05/14/21 06:18 Labs: Abnormal Lab Results - Last 24 Hours (Table) 05/13/21 05/14/21 Range/Units 06:28 06:18 Chloride 108 H (98-107) mmol/L Carbon Dioxide 20 L (22-30) mmol/L BUN 62.6 H 79 H (9.0-27.0) mg/dL Creatinine 12.0 H* 14.25 H* (0.6-1.5) mg/dL Est GFR (CKD-EPI)AfAm 5.1 L (60.0-200.0) Est GFR (CKD-EPI)NonAf 4.4 L (60.0-200.0) BUN/Creatinine Ratio 5.22 L (12.00-20.00) Ratio Calcium 8.2 L (8.4-10.2) mg/dL Magnesium 2.8 H (1.5-2.4) mg/dL Microbiology - Last 24 Hours (Table) 05/13/21 06:28 Blood Culture - Preliminary Blood No Growth after 24 hours 05/11/21 06:24 Blood Culture - Preliminary Blood No Growth after 72 hours 05/08/21 14:35 Blood Culture - Preliminary Blood No Growth after 120 hours 05/08/21 14:15 Blood Culture - Preliminary Blood No Growth after 120 hours 05/10/21 12:18 Blood Culture - Preliminary Blood No Growth after 72 hours 05/12/21 11:56 Blood Culture - Preliminary Blood No Growth after 24 hours Assessment and Plan (1) Bacteremia Current Visit: Yes Status: Acute Code(s): R78.81 - BACTEREMIA SNOMED Code(s): 4882969 Plan: 1Patient with gram-positive branching bacilli/acid fast with initial concern for possible nocardia, patient due have multiple antibiotic ALLERGIES, the patient did have removal of the infected dialysis catheter this morning , patient cultures done at [facility] has been finalized with Mycobacterium Fortuitum , patient is currently being treated imipenem and amikacin pharmacy to dose per guidelines, echocardiogram did show some thickened mitral VALVE however MUNDO was negative for any vegetation, WBC scan is pending repeat blood cultures done on 05/08/2021 has been negative and if he remains to be negative by tomorrow morning patient will be able to get up dialysis catheter on 05/15/2021, this was discussed with the STEAM ROOM ATTENDANT for vascular team 2-patient to have multiple antibiotic ALLERGIES including to Levaquin which the mother says was swelling and rash, along with other antibiotic classes and we'll be very hard to come up with any oral option for him and may benefit from ALLERGY immunology evaluation to determine his true ALLERGIES Time with Patient: Less than 30
[2021-05-15] MEDS: LEVOTHYROXINE 50 MCG TAB PO SCH (02:26)
[2021-05-15] MEDS: SODIUM CHLORIDE 0.9% IVPB SCH ×2 (03:14→16:23)
[2021-05-15] MEDS: IMIPENEM CILASTATIN IVPB SCH ×2 (03:14→16:23)
[2021-05-15 09:12] LABS: MCV 106.9 fL (80.0-97.0); Mean Platelet Volume 9.2 fL (9.5-12.2); Platelet Count 139 X 10*3/uL (140-440); RDW 15.9 % (11.5-14.5); WBC 2.96 X 10*3/uL (4.50-10.00)
--- NOTE | 2021-05-15 09:35 | P.PN ---
Subjective Patient is seen in follow-up for end-stage renal disease. He is maintained on home hemodialysis via permacath. Permacath removed 05/10/2021 due to positive blood cultures. Last hemodialysis was May 10. Denies chest pain or shortness of breath. No active complaints. No changes overnight. Vital signs are stable. General: The patient appeared well nourished and normally developed. HEENT: Head exam is unremarkable. LUNGS: Breath sounds decreased. HEART: Rate and Rhythm are regular. ABDOMEN: Soft, no distention. EXTREMITITES: No edema. Objective - Vital Signs Vital signs: Vital Signs Temp 97.7 F 05/15/21 04:32 Pulse 84 05/15/21 04:32 Resp 18 05/15/21 04:32 BP 143/96 05/15/21 04:32 Pulse Ox 98 05/15/21 04:32 Intake & Output 05/14/21 05/15/21 05/15/21 18:59 06:59 18:59 Intake Total 120 340 Balance 120 340 Intake: IV 20 Intake, IV Titration 100 100 Amount Imipenem-Cilastatin 250 100 100 mg In Sodium Chloride 0.9 % 100 ml @ 220 mls/hr IVPB Q12H [facility] Rx#: [id number] Oral 240 Other: Voiding Method Toilet Toilet - Labs CBC & Chem 7: 05/15/21 07:03 05/14/21 06:18 Labs: Abnormal Lab Results - Last 24 Hours (Table) 05/15/21 05/15/21 Range/Units 07:03 07:03 WBC 2.96 L (4.50-10.00) X 10*3/uL RBC 2.90 L (4.40-5.60) X 10*6/uL Hgb 9.0 L (13.0-17.0) g/dL Hct 31.0 L (39.6-50.0) % MCV 106.9 H (80.0-97.0) fL MCHC 29.0 L (32.0-37.0) g/dL RDW 15.9 H (11.5-14.5) % Plt Count 139 L (140-440) X 10*3/uL MPV 9.2 L (9.5-12.2) fL Absolute Nucleated RBC 0.03 H (0.00-0.00) X 10*3/uL NRBC/100 WBC Diff 1.0 H (0.0-0.0) /100 WBCS Magnesium 3.0 H (1.5-2.4) mg/dL Microbiology - Last 24 Hours (Table) 05/13/21 06:28 Blood Culture - Preliminary Blood No Growth after 48 hours 05/11/21 06:24 Blood Culture - Preliminary Blood No Growth after 96 hours 05/08/21 14:35 Blood Culture - Final Blood No Growth after 144 hours 05/08/21 14:15 Blood Culture - Final Blood No Growth after 144 hours 05/10/21 12:18 Blood Culture - Preliminary Blood No Growth after 96 hours 05/12/21 11:56 Blood Culture - Preliminary Blood No Growth after 48 hours Assessment and Plan Plan: Assessment: 1. End-stage renal disease maintained on home hemodialysis. 2. Gram-positive bacteremia status post removal of permacath on 05/10/2021. On IV antibiotics per ID. no vegetation noted on MUNDO. 3. Anemia of chronic kidney disease. On Aranesp. 4. History of failed renal transplant. Only on prednisone 10 mg daily - patient states he's unable to get off prednisone. 5. Chronic kidney disease mineral bone disease. PTH 436. 6. Metabolic acidosis secondary to chronic kidney disease on oral bicarbonate. 7. Hypertension with chronic kidney disease. Stable. Plan: Follow-up cultures. New permacath to be placed once clearance obtained from infectious disease - likely tomorrow. Continue to assess daily for need for renal replacement therapy. Follow-up morning labs.
[2021-05-15 09:44] LABS: African American GFR (CKD) 3.7 (60.0-200.0); Anion Gap 21.4 mmol/L (10.00-18.00); BUN/Creat Ratio 5.08 Ratio (12.00-20.00); Blood Urea Nitrogen 78.2 mg/dL (9.0-27.0); Calcium 8.6 mg/dL (8.7-10.3); Carbon Dioxide 16.6 mmol/L (20.0-27.5); Non-African American GFR(CKD) 3.2 (60.0-200.0); Phosphorus 9.4 mg/dL (2.4-5.1); Potassium 4.6 mmol/L (3.5-5.5)
[2021-05-15] MEDS: HEPARIN SODIUM,PORCINE/PF 5,000 UNIT/0.5 ML SYRINGE SQ SCH ×3 (10:01→21:00)
[2021-05-15 11:02] LABS: Basophils # (M) 0.06 X 10*3/uL (0.00-0.10); Eosinophils # (M) 0.12 X 10*3/uL (0.04-0.35); Lymphocytes # (M) 0.89 X 10*3/uL (0.90-5.00); Monocytes # (M) 0.15 X 10*3/uL (0.20-1.00); Myelocytes % 1 % (0-0); Neutrophils # (M) 1.72 X 10*3/uL (2.00-8.90); Neutrophils % (M) 58 %
[2021-05-15] MEDS ORDERED: LIDOCAINE 1% INJ 10MG/ML (20 ML MDV) ONE (11:02)
[2021-05-15] MEDS ORDERED: SODIUM CHLORIDE 0.9% 500 ML 500 ML IV ONE (11:15)
[2021-05-15] MEDS ORDERED: MIDAZOLAM 2 MG/2 ML VIAL IV ONE (11:15)
[2021-05-15] MEDS: LIDOCAINE 1% INJ 10MG/ML (20 ML MDV) SQ ONE ×2 (11:22→11:25)
[2021-05-15] MEDS: CALCIUM CARBONATE 500 MG CHEWABLE PO SCH ×3 (12:19→20:57)
[2021-05-15] MEDS: SODIUM BICARBONATE TAB 650 MG TAB PO SCH ×2 (12:20→20:57)
[2021-05-15] MEDS: allopurinoL 100 MG TAB PO SCH (12:20)
[2021-05-15] MEDS: SODIUM CHLORIDE 0.9% 1,000 ML IV SCH (12:20)
--- NOTE | 2021-05-15 12:31 | P.OP ---
Date of Procedure: 05/15/21 Preoperative Diagnosis: ESRD, Infected dialysis catheter s/p removal Postoperative Diagnosis: ESRD, Dialysis catheter infection s/p removal Bilateral internal jugular vein thrombosis Procedure(s) Performed: Ultrasound guided attempted access of the left internal jugular vein Ultrasound guided right internal jugular vein access with attempted placement of tunneled catheter Anesthesia: local Surgeon: Christiano Keys Estimated Blood Loss (ml): 5 Pathology: none sent Condition: stable Indications for Procedure: 50 year old male with history of ESRD on hemodialysis via right sided tunneled catheter who is being treated for infected catheter presents today for another tunneled catheter placement after recent blood cultures have been negative. Operative Findings: Thrombosis noted in the right internal jugular vein. Left internal jugular vein diminutive. Description of Procedure: After written and informed consent was obtained from the patient and all risks, benefits and complications were described the patient was brought to the clinical laboratory science professor and laid in a supine position. The area of the bilateral neck and chest was prepped and draped in the usual fashion. Utilizing ultrasound the internal jugular vein on the left was diminutive and unable to be accessed. The right internal jugular vein was then located and was dilated and partially compressible. This was accessed with a micro needle and wire was attempted to be placed into the SVC without success. We were unable to perform a venogram due to his severe allergy to contrast and therefore procedure was concluded. I did discuss with him possible femoral tunneled catheter at this time but he refused and wanted to discuss with his mom. He was then sent to his room for recovery and chest xray was ordered.
--- NOTE | 2021-05-15 13:01 | P.PN ---
Subjective Progress Note Date: 05/15/21 Principal diagnosis: line infection No new complaints today. BCx remain negative. Going for cath placement now. Objective - Vital Signs Vital signs: Vital Signs Temp 97.7 F 05/15/21 04:32 Pulse 84 05/15/21 04:32 Resp 18 05/15/21 04:32 BP 143/96 05/15/21 04:32 Pulse Ox 98 05/15/21 04:32 Intake & Output 05/14/21 05/15/21 05/15/21 18:59 06:59 18:59 Intake Total 120 340 20 Balance 120 340 20 Intake: IV 20 20 Intake, IV Titration 100 100 Amount Imipenem-Cilastatin 250 100 100 mg In Sodium Chloride 0.9 % 100 ml @ 220 mls/hr IVPB Q12H [facility] Rx#: [id number] Oral 240 Other: Voiding Method Toilet Toilet - Exam Constitutional: No acute distress, conversant, pleasant Eyes:Anicteric sclerae, moist conjunctiva, no lid-lag, PERRLA, ENMT: Oropharynx clear, no erythema, exudates Neck: Supple, FROM, no masses, or JVD, No carotid bruits, No thyromegaly Lungs: Clear to auscultation, Clear to percussion, Normal respiratory effort, no accessory muscle use Cardiovascular: Heart regular in rate and rhythm, No murmurs, gallops, or rubs, No peripheral edema Abdominal: Soft, Nontender, no guarding, rebound or rigidity, Normoactive bowel sounds, No hepatomegaly, No splenomegaly, No palpable mass Skin: Normal temperature, tone, texture, turgor, no induration, No subcutaneous nodules, No rash, lesions, No ulcers Extremities: No digital cyanosis, No clubbing, Pedal pulses intact and symmetrical, Radial pulses intact and symmetrical, No calf tenderness Psychiatric: Alert and oriented to person, place and time, appropriate affect, intact judgement Neuro: Muscles Strength 5/5 in all 4 extremities, Sensation to light touch grossly present throughout, Cranial nerves II-XII grossly intact, no focal sensory deficits - Labs CBC & Chem 7: 05/15/21 07:03 05/15/21 07:03 Labs: Abnormal Lab Results - Last 24 Hours (Table) 05/15/21 05/15/21 Range/Units 07:03 07:03 WBC 2.96 L (4.50-10.00) X 10*3/uL RBC 2.90 L (4.40-5.60) X 10*6/uL Hgb 9.0 L (13.0-17.0) g/dL Hct 31.0 L (39.6-50.0) % MCV 106.9 H (80.0-97.0) fL MCHC 29.0 L (32.0-37.0) g/dL RDW 15.9 H (11.5-14.5) % Plt Count 139 L (140-440) X 10*3/uL MPV 9.2 L (9.5-12.2) fL Absolute Nucleated RBC 0.03 H (0.00-0.00) X 10*3/uL Myelocytes % 1 H (0-0) % Neutrophils # (Manual) 1.72 L (2.00-8.90) X 10*3/uL Lymphocytes # (Manual) 0.89 L (0.90-5.00) X 10*3/uL Monocytes # (Manual) 0.15 L (0.20-1.00) X 10*3/uL NRBC/100 WBC Diff 1.0 H (0.0-0.0) /100 WBCS Carbon Dioxide 16.6 L (20.0-27.5) mmol/L Anion Gap 21.40 H (10.00-18.00) mmol/L BUN 78.2 H (9.0-27.0) mg/dL Creatinine 15.4 H* (0.6-1.5) mg/dL Est GFR (CKD-EPI)AfAm 3.7 L (60.0-200.0) Est GFR (CKD-EPI)NonAf 3.2 L (60.0-200.0) BUN/Creatinine Ratio 5.08 L (12.00-20.00) Ratio Calcium 8.6 L (8.7-10.3) mg/dL Phosphorus 9.4 H* (2.4-5.1) mg/dL Magnesium 3.0 H (1.5-2.4) mg/dL Microbiology - Last 24 Hours (Table) 05/13/21 06:28 Blood Culture - Preliminary Blood No Growth after 48 hours 05/11/21 06:24 Blood Culture - Preliminary Blood No Growth after 96 hours 05/08/21 14:35 Blood Culture - Final Blood No Growth after 144 hours 05/08/21 14:15 Blood Culture - Final Blood No Growth after 144 hours 05/10/21 12:18 Blood Culture - Preliminary Blood No Growth after 96 hours 05/12/21 11:56 Blood Culture - Preliminary Blood No Growth after 48 hours Assessment and Plan Plan: Gram-positive bacteremia with acid-fast bacilli, concerning for Nocardia End-stage renal disease status post failed kidney transplant Immunocompromised state -Admit to inpatient, telemetry -ID consult for bacteremia -Vascular consult for catheter exchange, removed on 05/10, new one placed 05/15 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, mycobacterium fortuitum, 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 Paroxysmal atrial fibrillation, rate controlled -not on AC due to low CHADS-VASc of 1 -continue metoprolol Anemia of chronic disease Hypothyroidism ALLERGIC rhinitis Gout -Home medications reviewed and reconciled Patient is a full code DVT prophylaxis with heparin 3 times a day
[2021-05-15 14:47] VITALS: BMI 27.1
--- NOTE | 2021-05-15 14:55 | XR ---
EXAMINATION TYPE: XR chest 1V confirm line [facility] DATE OF EXAM: 05/15/2021 COMPARISON: Chest x-ray 05/03/2021 HISTORY: Line placement TECHNIQUE: Single frontal view of the chest is obtained. FINDINGS: Right jugular central venous catheter seen on higher exam is not seen. Patient is rotated. Heart and mediastinal silhouette is likely stable, heart is enlarged. There is no evident pneumothor ax. Exam is expiratory and rotated. Patchy subsegmental basilar atelectatic changes are present. IMPRESSION: No evident complication status post attempted central venous catheter placement. Expirat ory rotated exam, subsegmental basilar atelectatic changes are suspected. Follow-up PA and lateral ch est x-ray for better evaluation as indicated.
--- NOTE | 2021-05-15 16:19 | US ---
EXAMINATION TYPE: US venous doppler duplex UE DATE OF EXAM: 05/15/2021 COMPARISON: NONE CLINICAL HISTORY: assess for DVT. Right arm swelling, unsuccessful dialysis catheter placement bilate rally SIDE PERFORMED: Bilateral Grayscale, color Doppler, spectral Doppler imaging performed of the deep veins of the upper extremiti es Low-level internal echoes are present within the internal jugular and Rachel 6 portion of the right sub clavian vein, there is lack of color flow. Right axillary, basilic, brachial veins show no evident thrombus, cephalic vein is normal, radial and ulnar veins are within normal limits. The left visualized subclavian, axillary, basilic, brachial, radial and ulnar veins show no thrombus. Right Arm: +DVT right IJV and subclavian vein Left Arm: Unable to visualize left IJV and left cephalic, visualized portions appeared negative for D VT or SVT Incidental finding heavily calcified arteries bilateral arms IMPRESSION: Deep venous thrombosis right internal jugular vein central portion of the right subclavian vein
[2021-05-15] MEDS: predniSONE 10 MG TAB PO SCH (16:23)
[2021-05-15] MEDS: METOPROLOL TARTRATE 12.5 MG TAB PO SCH ×2 (16:23→20:57)
[2021-05-15] MEDS: MONTELUKAST 10 MG TAB PO SCH (20:57)
[2021-05-15] MEDS: ALPRAZolam 0.5 MG TAB PO SCH (20:57)
--- NOTE | 2021-05-15 23:44 | P.PN ---
Subjective Progress Note Date: 05/15/21 Principal diagnosis: Bacteremia secondary to dialysis catheter infection Patient is a 50 year male readmitted to the hospital with a positive blood culture concerning for dialysis cath tract infection with the patient was elected to have taken out on his last admission. Patient is status post removal of the infected dialysis catheter on 05/10/2021, the patient did have a MUNDO completed 05/14/2020 with no evidence of any vegetation On today's evaluation that is 05/15/2021, the patient remains to be afebrile, patient denies having any chest pain or shortness of breath or cough , the patient denies nausea no vomiting no abdominal pain and no diarrhea with antibiotic therapy, patient apparently has been upset with the nursing staff this morning regarding the timing of the dialysis catheter placement Objective - Vital Signs Vital signs: Vital Signs Temp 97.7 F 05/15/21 04:32 Pulse 84 05/15/21 04:32 Resp 18 05/15/21 04:32 BP 143/96 05/15/21 04:32 Pulse Ox 98 05/15/21 04:32 Intake & Output 05/14/21 05/15/21 05/15/21 18:59 06:59 18:59 Intake Total 120 340 Balance 120 340 Intake: IV 20 Intake, IV Titration 100 100 Amount Imipenem-Cilastatin 250 100 100 mg In Sodium Chloride 0.9 % 100 ml @ 220 mls/hr IVPB Q12H [facility] Rx#: [id number] Oral 240 Other: Voiding Method Toilet Toilet - Exam GENERAL DESCRIPTION: Middle-aged male lying in bed in no distress RESPIRATORY SYSTEM: Unlabored breathing , decreased breath sounds at bases HEART: S1 S2 regular rate and rhythm , ABDOMEN: Soft , no tenderness EXTREMITIES: No edema feet - Labs CBC & Chem 7: 05/15/21 07:03 05/15/21 07:03 Labs: Abnormal Lab Results - Last 24 Hours (Table) 05/15/21 05/15/21 Range/Units 07:03 07:03 WBC 2.96 L (4.50-10.00) X 10*3/uL RBC 2.90 L (4.40-5.60) X 10*6/uL Hgb 9.0 L (13.0-17.0) g/dL Hct 31.0 L (39.6-50.0) % MCV 106.9 H (80.0-97.0) fL MCHC 29.0 L (32.0-37.0) g/dL RDW 15.9 H (11.5-14.5) % Plt Count 139 L (140-440) X 10*3/uL MPV 9.2 L (9.5-12.2) fL Absolute Nucleated RBC 0.03 H (0.00-0.00) X 10*3/uL NRBC/100 WBC Diff 1.0 H (0.0-0.0) /100 WBCS Carbon Dioxide 16.6 L (20.0-27.5) mmol/L Anion Gap 21.40 H (10.00-18.00) mmol/L BUN 78.2 H (9.0-27.0) mg/dL Creatinine 15.4 H* (0.6-1.5) mg/dL Est GFR (CKD-EPI)AfAm 3.7 L (60.0-200.0) Est GFR (CKD-EPI)NonAf 3.2 L (60.0-200.0) BUN/Creatinine Ratio 5.08 L (12.00-20.00) Ratio Calcium 8.6 L (8.7-10.3) mg/dL Phosphorus 9.4 H* (2.4-5.1) mg/dL Magnesium 3.0 H (1.5-2.4) mg/dL Microbiology - Last 24 Hours (Table) 05/13/21 06:28 Blood Culture - Preliminary Blood No Growth after 48 hours 05/11/21 06:24 Blood Culture - Preliminary Blood No Growth after 96 hours 05/08/21 14:35 Blood Culture - Final Blood No Growth after 144 hours 05/08/21 14:15 Blood Culture - Final Blood No Growth after 144 hours 05/10/21 12:18 Blood Culture - Preliminary Blood No Growth after 96 hours 05/12/21 11:56 Blood Culture - Preliminary Blood No Growth after 48 hours Assessment and Plan (1) Bacteremia Current Visit: Yes Status: Acute Code(s): R78.81 - BACTEREMIA SNOMED Code(s): 4780384 Plan: 1Patient with gram-positive branching bacilli/acid fast with initial concern for possible nocardia, patient due have multiple antibiotic ALLERGIES, the patient did have removal of the infected dialysis catheter this morning , patient cultures done at [facility] has been finalized with Mycobacterium Fortuitum , patient is currently being treated imipenem and amikacin pharmacy to dose per guidelines, echocardiogram did show some thickened mitral VALVE however MUNDO was negative for any vegetation, WBC scan remains to be pending repeat blood cultures done on 05/08/2021 has been negative and patient will be able to get up dialysis catheter today and this was discussed with the mortgage closing clerk 2-patient to have multiple antibiotic ALLERGIES including to Levaquin which the mother says was swelling and rash, along with other antibiotic classes and we'll be very hard to come up with any oral option for him and may benefit from ALLERGY immunology evaluation to determine his true ALLERGIES 3-patient will need at least 2 weeks of IV Primaxin and amikacin pharmacy to dose for the patient needs PICC line with the patient and his mother is refusing, did explain to them in simple [place]ese we do not treat bacteremia with oral antibiotics, patient also have multiple antibiotic ALLERGIES and I did call essential [facility] micro-lab sensitivities are not back, so I cannot advise any oral antibiotic for discharge this was discussed with the medical team Time spent today in his care has been more than 30 minutes including multiple calls to different consultants Time with Patient: Greater than 30
[2021-05-16] MEDS: IMIPENEM CILASTATIN IVPB SCH ×2 (02:05→15:29)
[2021-05-16] MEDS: SODIUM CHLORIDE 0.9% IVPB SCH ×2 (02:05→15:29)
[2021-05-16 05:04] VITALS: RESP 18
[2021-05-16] MEDS: LEVOTHYROXINE 50 MCG TAB PO SCH (06:04)
[2021-05-16 06:30] LABS: Anion Gap 15 mmol/L; Blood Urea Nitrogen 86 mg/dL (9-20); Calcium 8.8 mg/dL (8.4-10.2); Carbon Dioxide 19 mmol/L (22-30); Chloride 106 mmol/L (98-107); Glucose 84 mg/dL (74-99); Magnesium 2.8 mg/dL (1.6-2.3); Sodium 140 mmol/L (137-145)
[2021-05-16 06:36] LABS: African American GFR (CKD) 3 (>60 ml/min/1.73 sqM); Non-African American GFR(CKD) 3 (>60 ml/min/1.73 sqM)
[2021-05-16] MEDS: SODIUM BICARBONATE TAB 650 MG TAB PO SCH (09:34)
[2021-05-16] MEDS: HEPARIN SODIUM,PORCINE/PF 5,000 UNIT/0.5 ML SYRINGE SQ SCH (09:34)
[2021-05-16] MEDS: CALCIUM CARBONATE 500 MG CHEWABLE PO SCH ×2 (09:35→09:38)
[2021-05-16] MEDS: CHOLECALCIFEROL 25 MCG (1000 IU) TABLET PO SCH (09:35)
[2021-05-16] MEDS: METOPROLOL TARTRATE 12.5 MG TAB PO SCH (09:35)
[2021-05-16] MEDS: allopurinoL 100 MG TAB PO SCH (09:35)
[2021-05-16] MEDS: predniSONE 10 MG TAB PO SCH (09:35)
[2021-05-16] MEDS: SODIUM CHLORIDE 0.9% 1,000 ML IV SCH (09:40)
--- NOTE | 2021-05-16 09:41 | P.PN ---
Subjective Patient is seen in follow-up for end-stage renal disease. He is maintained on home hemodialysis via permacath. Permacath removed 05/10/2021 due to positive blood cultures. Last hemodialysis was May 10. Denies chest pain or shortness of breath. No active complaints. No changes overnight. Scheduled for dialysis catheter placement today. Vital signs are stable. General: The patient appeared well nourished and normally developed. HEENT: Head exam is unremarkable. LUNGS: Breath sounds decreased. HEART: Rate and Rhythm are regular. ABDOMEN: Soft, no distention. EXTREMITITES: 1+ edema. Objective - Vital Signs Vital signs: Vital Signs Temp 97.6 F 05/16/21 05:00 Pulse 66 05/16/21 05:00 Resp 18 05/16/21 05:00 BP 167/90 05/16/21 06:08 Pulse Ox 100 05/16/21 05:00 Intake & Output 05/15/21 05/16/21 05/16/21 18:59 06:59 18:59 Intake Total 480 100 Balance 480 100 Weight 83.552 kg Intake: IV 20 Intake, IV Titration 100 100 Amount Imipenem-Cilastatin 250 100 100 mg In Sodium Chloride 0.9 % 100 ml @ 220 mls/hr IVPB Q12H [facility] Rx#: [id number] Oral 360 - Labs CBC & Chem 7: 05/15/21 07:03 05/16/21 06:04 Labs: Abnormal Lab Results - Last 24 Hours (Table) 05/15/21 05/15/21 05/16/21 Range/Units 07:03 07:03 06:04 Myelocytes % 1 H (0-0) % Neutrophils # (Manual) 1.72 L (2.00-8.90) X 10*3/uL Lymphocytes # (Manual) 0.89 L (0.90-5.00) X 10*3/uL Monocytes # (Manual) 0.15 L (0.20-1.00) X 10*3/uL Carbon Dioxide 16.6 L 19 L (20.0-27.5) mmol/L Anion Gap 21.40 H (10.00-18.00) mmol/L BUN 78.2 H 86 H (9.0-27.0) mg/dL Creatinine 15.4 H* 17.48 H* (0.6-1.5) mg/dL Est GFR (CKD-EPI)AfAm 3.7 L (60.0-200.0) Est GFR (CKD-EPI)NonAf 3.2 L (60.0-200.0) BUN/Creatinine Ratio 5.08 L (12.00-20.00) Ratio Calcium 8.6 L (8.7-10.3) mg/dL Phosphorus 9.4 H* (2.4-5.1) mg/dL Magnesium 3.0 H 2.8 H (1.5-2.4) mg/dL Microbiology - Last 24 Hours (Table) 05/13/21 06:28 Blood Culture - Preliminary Blood No Growth after 72 hours 05/11/21 06:24 Blood Culture - Preliminary Blood No Growth after 120 hours 05/10/21 12:18 Blood Culture - Preliminary Blood No Growth after 120 hours 05/12/21 11:56 Blood Culture - Preliminary Blood No Growth after 72 hours Assessment and Plan Plan: Assessment: 1. End-stage renal disease maintained on home hemodialysis. 2. Gram-positive bacteremia status post removal of permacath on 05/10/2021. On IV antibiotics per ID. no vegetation noted on MUNDO. 3. Anemia of chronic kidney disease. On Aranesp. 4. History of failed renal transplant. Only on prednisone 10 mg daily - patient states he's unable to get off prednisone. 5. Chronic kidney disease mineral bone disease. PTH 436. 6. Metabolic acidosis secondary to chronic kidney disease on oral bicarbonate. 7. Hypertension with chronic kidney disease. Stable. Plan: Follow-up cultures. Scheduled for dialysis catheter placement today. Hemodialysis today and again tomorrow. Antibiotics per infectious disease.
[2021-05-16] MEDS ORDERED: APIXABAN 5 MG TAB PO SCH (09:45)
[2021-05-16] MEDS ORDERED: LIDOCAINE 1% INJ 10MG/ML (20 ML MDV) SQ ONE ×5 (12:11→12:21)
[2021-05-16] MEDS ORDERED: MIDAZOLAM 2 MG/2 ML VIAL IV ONE (12:11)
[2021-05-16] MEDS ORDERED: fentaNYL (PF) 50 MCG/ML 2 ML AMP IV ONE (12:11)
[2021-05-16] MEDS ORDERED: HEPARIN SODIUM 1,000 UN/ML (10ML VL) IV ONE ×2 (12:21→12:27)
[2021-05-16] MEDS ORDERED: IV FLUID CONTINUATION 500 ML IV ONE (12:21)
--- NOTE | 2021-05-16 13:05 | IR ---
EXAMINATION TYPE: IR cvc insert central tunneled DATE OF EXAM: 05/16/2021 COMPARISON: NONE HISTORY: Renal failure Fluoroscopy support supplied to the referring clinician. See dictated report from vascular surgery, 0.5 minutes fluoroscopy time, 63 intraoperative C-arm images document the procedure
[2021-05-16 13:29] VITALS: BP 150/82; PULSE 59; TEMP 97.4
--- NOTE | 2021-05-16 13:44 | P.PN ---
Subjective Progress Note Date: 05/16/21 Principal diagnosis: line infection Doing well, he was found to have DVT in both IJs when trying to put in the dialysis catheter yesterday. This will be tried again today. Objective - Vital Signs Vital signs: Vital Signs Temp 97.6 F 05/16/21 05:00 Pulse 66 05/16/21 05:00 Resp 18 05/16/21 05:00 BP 167/90 05/16/21 06:08 Pulse Ox 100 05/16/21 05:00 Intake & Output 05/15/21 05/16/21 05/16/21 18:59 06:59 18:59 Intake Total 480 100 50 Balance 480 100 50 Weight 83.552 kg Intake: IV 20 50 Intake, IV Titration 100 100 Amount Imipenem-Cilastatin 250 100 100 mg In Sodium Chloride 0.9 % 100 ml @ 220 mls/hr IVPB Q12H [facility] Rx#: [id number] Oral 360 Other: Voiding Method Toilet - Labs CBC & Chem 7: 05/15/21 07:03 05/16/21 06:04 Labs: Abnormal Lab Results - Last 24 Hours (Table) 05/16/21 Range/Units 06:04 Carbon Dioxide 19 L (22-30) mmol/L BUN 86 H (9-20) mg/dL Creatinine 17.48 H* (0.66-1.25) mg/dL Magnesium 2.8 H (1.6-2.3) mg/dL Microbiology - Last 24 Hours (Table) 05/13/21 06:28 Blood Culture - Preliminary Blood No Growth after 72 hours 05/11/21 06:24 Blood Culture - Preliminary Blood No Growth after 120 hours 05/10/21 12:18 Blood Culture - Preliminary Blood No Growth after 120 hours 05/12/21 11:56 Blood Culture - Preliminary Blood No Growth after 72 hours Assessment and Plan Plan: Gram-positive bacteremia with acid-fast bacilli, concerning for Nocardia End-stage renal disease status post failed kidney transplant Immunocompromised state -Admit to inpatient, telemetry -ID consult for bacteremia -Vascular consult for catheter exchange, removed on 05/10, new one placed 05/16 in the groin. 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 Paroxysmal atrial fibrillation, rate controlled -not on AC due to low CHADS-VASc of 1 -continue metoprolol Anemia of chronic disease Hypothyroidism ALLERGIC rhinitis Gout -Home medications reviewed and reconciled Patient is a full code DVT prophylaxis with heparin 3 times a day Discussed with mother and patient discharge options. They want to go home, refusing home health care. Refusing senior living placement.
--- NOTE | 2021-05-16 14:08 | P.OP ---
Date of Procedure: 05/16/21 Preoperative Diagnosis: Chronic kidney disease stage V. Postoperative Diagnosis: Same. Procedure(s) Performed: #1: Ultrasound-guided cannulation right common femoral vein. #2: Fluoroscopically assisted placement of a tunneled hemodialysis catheter via the right common femoral vein approach. Anesthesia: MAC (50 mg of fentanyl and 2 mg of Versed.), local (1% Xylocaine) Surgeon: Scottie Agarwal Estimated Blood Loss (ml): 10 Urine output (ml): 0 Pathology: none sent Condition: stable Disposition: no change Indications for Procedure: Patient is a 50-year-old male with a long-standing history of chronic kidney disease. He is dialyzed typically via a tunneled dialysis catheter. This catheter had been removed over concern for infectious complications. Patient is now offered a new tunneled hemodialysis catheter. Attempt was made to place a catheter via the internal jugular approach yesterday however this was unsuccessful and now patient is offered a catheter placed via the right femoral venous approach. Description of Procedure: Patient was brought to special procedure suite. Both groins were sterilely prepped and draped in usual manner. The patient's IV antibiotic regimen was maintained/continued. 50 mg of fentanyl and 2 mg of Versed were administered intravenously for moderate conscious sedation purposes. Ultrasound was utilized to identify the right common femoral vein. 1% Xylocaine was utilized for local anesthesia tissues overlying the femoral vein. Through this anesthetized area within the aid of ultrasound a micropuncture needle was utilized to cannulate the vein. Once cannulated a Softip guidewire was advanced and micropuncture sheath and dilator were advanced over the guidewire. The guidewire was was withdrawn and a 0.035 inch guidewire was advanced through the micropuncture sheath. The sheath was withdrawn and the tract was dilated with vascular dilators. The hemodialysis sheath and dilator advanced over the guidewire. Guidewire and dilator were withdrawn. Additional Xylocaine was utilized to localize the tissues below the femoral access a point. Through this anesthetized area skin incision was made and a palindrome hemodialysis catheter was tunneled between the 2 incisions. The catheter was then advanced through the sheath and the sheath was peeled away. Fluoroscopy demonstrated catheter to be in good position. Blood was easily aspirated through both ports which were then flushed with heparinized saline solution. Her applied. The catheter was secured skin with nylon suture and the groin wound was closed with nylon suture. Proper dressings were applied. Patient tolerated procedure well was taken to the recovery area satisfactory and stable condition.
--- NOTE | 2021-05-16 16:52 | P.DS ---
Providers Date of admission: 05/08/21 14:59 Expected date of discharge: 05/16/21 Attending physician: Mehran Canales MD Consults: 05/08/21 14:52 Consult Physician Urgent Consulting Provider: Christiano Keys Consult Reason/Comments: Dialysis catheter exchange Do you want consulting provider notified?: Yes Consult Physician Urgent Consulting Provider: Tessa King Consult Reason/Comments: Bacteremia Do you want consulting provider notified?: Yes 05/08/21 15:01 Consult Physician Routine Consulting Provider: Mamie Lucia Consult Reason/Comments: ESRD, infected dialysis catheter Do you want consulting provider notified?: Yes 05/12/21 11:13 Consult Physician Routine Consulting Provider: Stanislaw Velázquez Consult Reason/Comments: MUNDO to r/o endocarditis Do you want consulting provider notified?: Yes Primary care physician: [facility] Course: 50-year-old man with medical history of end-stage renal disease with permacath status post failed renal transplant, anemia of chronic disease, immunosuppressed on prednisone with recent discontinuation of cyclosporine and CellCept, hypothyroidism, gout, paroxysmal atrial fibrillation with chads vasc of 1 presented for follow-up of bacteremia. Patient was recently hospitalized here from 05/03-05/06 after having been identified at an outside facility to have gram- positive bacteremia where he initially presented for fever and tachycardia. Patient has multiple antibiotic ALLERGIES, but ultimately with consultation with ID, patient was treated with meropenem IV. Patient was counseled that given the gram-positive bacteremia status, he would likely need IV antibiotics and his dialysis catheter exchanged. Initially, patient had concerns that catheter was placed at [facility], and that patient would prefer to have catheter addressed at [facility]. Despite appropriate counseling by primary team, ID, patient was discharged on oral antibiotics per patient's wishes on 05/06. He came back after it was found that he was allergic to cefdinir that he was prescribed and due to persistently positive blood cultures. 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 Repeat BC this admission were negative. He was treated with primaxin and amikasin by ID. He had new groin dialysis catheter placed today. It could no be placed in the IJs due to DVT found during the procedure. He was started on AC. During the process of trying to arrange the abx infusion at the dialysis center he decided to leave against medical advice. I explained to him the risks of leaving without having the arrangements finalized including not being able to get the IV antibiotics, spread of infection, severe sepsis and but he insisted on leaving. Time for discharge 35 minutes. Patient Condition at Discharge: Fair Plan - Discharge Summary New Discharge Prescriptions: New Apixaban [Eliquis] 5 mg PO BID 30 Days #60 tab Continue Montelukast [Singulair] 10 mg PO HS ALPRAZolam [Xanax] 0.5 mg PO HS Levothyroxine Sodium [Synthroid] 50 mcg PO DAILY allopurinoL [Zyloprim] 100 mg PO DAILY Magnesium Oxide [Magox 400] 400 mg PO DAILY Cholecalciferol [Vitamin D3 (25 Mcg = 1000 Iu)] 50 mcg PO Q48H predniSONE 10 mg PO DAILY Aspirin EC [Ecotrin Low Dose] 324 mg PO DAILY Metoprolol Tartrate [Lopressor] 12.5 mg PO DAILY PRN PRN Reason: hold for BP less than 110 Epoetin Martin [Epogen] 9,000 unit SQ MOTUSA Discharge Medication List ALPRAZolam [Xanax] 0.5 mg PO HS 12/18/17 [History] Levothyroxine Sodium [Synthroid] 50 mcg PO DAILY 12/18/17 [History] Montelukast [Singulair] 10 mg PO HS 12/18/17 [History] allopurinoL [Zyloprim] 100 mg PO DAILY 12/18/17 [History] Cholecalciferol [Vitamin D3 (25 Mcg = 1000 Iu)] 50 mcg PO Q48H 04/25/21 [History] Magnesium Oxide [Magox 400] 400 mg PO DAILY 04/25/21 [History] predniSONE 10 mg PO DAILY 04/25/21 [History] Aspirin EC [Ecotrin Low Dose] 324 mg PO DAILY 05/03/21 [History] Epoetin Martin [Epogen] 9,000 unit SQ MOTUSA 05/08/21 [History] Metoprolol Tartrate [Lopressor] 12.5 mg PO DAILY PRN 05/08/21 [History] Apixaban [Eliquis] 5 mg PO BID 30 Days #60 tab 05/16/21 [Rx] Follow up Appointment(s)/Referral(s): Stormy Reardon MD [STAFF PHYSICIAN] - 2 Weeks (follow up for aortic stenosis ) [facility], [NON-STAFF] - 1 Week Mychal Jerome DO [Primary Care Provider] - 1-2 days
[2021-05-16 23:57] LABS: Hepatitis B Surface Antigen Nonreactive (Nonreactive)
[2021-05-17 02:25] LABS: Hepatitis B Surface AB- Quant 3.5 mIU/mL; Hepatitis B Surface Antibody Nonreactive (Nonreactive)
== END 2021-05-16 16:25 | disposition left against medical advice (07) | DRG 314 ==
LOC: EC 12:44 → 5NMEDONC 14:59
PROVIDERS: ADMIT Internal Medicine; ATTEND Internal Medicine
PROC: 5A1D70Z Performance of Urinary Filtration, Intermittent, Less than 6 Hours Per Day (ICD-10-PCS; 2021-05-09)
PROC: 05PY33Z Removal of Infusion Device from Upper Vein, Percutaneous Approach (ICD-10-PCS; principal; 2021-05-10)
PROC: B246ZZ4 Ultrasonography of Right and Left Heart, Transesophageal (ICD-10-PCS; 2021-05-14)
PROC: 02HV33Z Insertion of Infusion Device into Superior Vena Cava, Percutaneous Approach (ICD-10-PCS; 2021-05-16 08:55)
PROC: 0JH63XZ Insertion of Tunneled Vascular Access Device into Chest Subcutaneous Tissue and Fascia, Percutaneous Approach (ICD-10-PCS; 2021-05-16 08:55)
DX: T80.211A Bloodstream infection due to central venous catheter, initial encounter (principal); N18.6 End stage renal disease; D84.9 Immunodeficiency, unspecified; E87.2 Acidosis; I12.0 Hypertensive chronic kidney disease with stage 5 chronic kidney disease or end stage renal disease; I82.C11 Acute embolism and thrombosis of right internal jugular vein; T86.12 Kidney transplant failure; R78.81 Bacteremia; B96.89 Other specified bacterial agents as the cause of diseases classified elsewhere; D63.1 Anemia in chronic kidney disease; E87.70 Fluid overload, unspecified; E89.0 Postprocedural hypothyroidism; H54.8 Legal blindness, as defined in USA; I08.0 Rheumatic disorders of both mitral and aortic valves; I48.0 Paroxysmal atrial fibrillation; J30.9 Allergic rhinitis, unspecified; K21.9 Gastro-esophageal reflux disease without esophagitis; M10.9 Gout, unspecified; E83.9 Disorder of mineral metabolism, unspecified; Y83.0 Surgical operation with transplant of whole organ as the cause of abnormal reaction of the patient, or of later complication, without mention of misadventure at the time of the procedure; Y84.8 Other medical procedures as the cause of abnormal reaction of the patient, or of later complication, without mention of misadventure at the time of the procedure; Z79.52 Long term (current) use of systemic steroids; Z79.82 Long term (current) use of aspirin; Z79.890 Hormone replacement therapy; Z79.899 Other long term (current) drug therapy; Z88.1 Allergy status to other antibiotic agents; Z99.2 Dependence on renal dialysis; Z88.5 Allergy status to narcotic agent; Z88.0 Allergy status to penicillin; Z88.7 Allergy status to serum and vaccine; Z91.041 Radiographic dye allergy status; Z91.040 Latex allergy status; Z53.09 Procedure and treatment not carried out because of other contraindication; Z81.1 Family history of alcohol abuse and dependence; Z86.19 Personal history of other infectious and parasitic diseases; M79.7 Fibromyalgia; Z98.890 Other specified postprocedural states; Z95.0 Presence of cardiac pacemaker; Z82.61 Family history of arthritis
CPT/HCPCS: 36415; 36558; 76937; 77001; 80048; 80053; 80150; 82728; 83540; 83550; 83605; 83735; 83970; 84100; 85025; 86706; 87040; 87340; 87635; 90935; 93005; 93306; 93312; 93320; 93325; 93970; 94760; 96365; 96366; 99285

== ENCOUNTER 2021-05-26 07:43 | Day surgery (SDC) | payer MEDICARE, OTHER ==
[2021-05-26 08:16] VITALS: PULSE 68
[2021-05-26] MEDS ORDERED: LIDOCAINE 1% INJ 10MG/ML (20 ML MDV) ONE (09:24)
[2021-05-26] MEDS ORDERED: LIDOCAINE 1% INJ 10MG/ML (20 ML MDV) SQ ONE (10:32)
[2021-05-26] MEDS ORDERED: HEPARIN SODIUM 1,000 UN/ML (10ML VL) ONE (10:39)
--- NOTE | 2021-05-26 11:08 | IR ---
EXAMINATION TYPE: IR cvc insert central tunneled DATE OF EXAM: 05/26/2021 COMPARISON: NONE HISTORY: Fluoroscopy time. Fluoroscopy was provided to the referring clinician.
--- NOTE | 2021-05-26 11:21 | P.OP ---
Date of Procedure: 05/26/21 Preoperative Diagnosis: Dysfunctional tunneled hemodialysis catheter placed via a right common femoral vein approach. Postoperative Diagnosis: Same. Procedure(s) Performed: [id number] exchange for tunneled hemodialysis catheter Implants: Tunneled hemodialysis catheter. Anesthesia: local Surgeon: Scottie Agarwal Estimated Blood Loss (ml): 5 IV fluids (ml): 0 Urine output (ml): 0 Pathology: none sent Condition: stable Disposition: no change Indications for Procedure: Patient is a 50-year-old male with a long-standing history of chronic kidney disease requiring hemodialysis. He recently was admitted with a septic picture and is previously placed catheter is removed in an effort to help control the infection. This catheter had been placed via a right internal jugular vein approach. Unfortunately the internal jugular vein on a bilateral basis was not useful for replacement of a tunneled hemodialysis catheter and the patient had a catheter placed via the right common femoral vein approach. For unexplained reasons this catheter eventually failed and patient is offered a new catheter. Description of Procedure: Patient was brought to the [facility]. Both groins were sterilely prepped and draped in usual manner. 1% Xylocaine was utilized for local anesthesia of the tissues at the previous surgical site. Nylon suture was removed. The wound was opened and the tunneled catheter was identified and elevated into operative view. It was doubly clamped and transected. The cutaneous portion of the catheter was easily removed. Through the indwelling catheter a guidewire was advanced under fluoroscopic guidance. The remaining portion of the catheter was removed and sheath and dilator advanced over the guidewire. Additional Xylocaine was utilized for local anesthesia of the tissues just inferior to this previous incision. An incision was made in these anesthetized tissues and the catheter was tunneled between the 2 incisions assuring the cuff was in the subcutaneous position. The catheter was advanced through the sheath and the sheath was peeled away. Fluoroscopy demonstrated the catheter to be in good position. Blood was easily aspirated through both ends of the catheter and both were then blocked with heparinized saline solution. The catheter was secured to the skin with nylon suture and the groin wound was closed with nylon suture. Proper dressings were applied. Patient tolerated the procedure well. At the patient's mother request a note allowing for infusion of antibiotics through the catheter was supplied. Apparently this is the protocol as the patient is a home dialysis patient. Plan - Discharge Summary Discharge Rx Participant: Yes New Discharge Prescriptions: No Action Montelukast [Singulair] 10 mg PO HS ALPRAZolam [Xanax] 0.5 mg PO HS Levothyroxine Sodium [Synthroid] 50 mcg PO DAILY allopurinoL [Zyloprim] 100 mg PO DAILY Magnesium Oxide [Magox 400] 400 mg PO DAILY Apixaban [Eliquis] 5 mg PO BID 30 Days #60 tab Cholecalciferol [Vitamin D3 (25 Mcg = 1000 Iu)] 50 mcg PO Q48H predniSONE 10 mg PO DAILY Aspirin EC [Ecotrin Low Dose] 324 mg PO DAILY Metoprolol Tartrate [Lopressor] 12.5 mg PO DAILY PRN PRN Reason: hold for BP less than 110 Epoetin Martin [Epogen] 9,000 unit SQ MOTUSA Discharge Medication List ALPRAZolam [Xanax] 0.5 mg PO HS 12/18/17 [History] Levothyroxine Sodium [Synthroid] 50 mcg PO DAILY 12/18/17 [History] Montelukast [Singulair] 10 mg PO HS 12/18/17 [History] allopurinoL [Zyloprim] 100 mg PO DAILY 12/18/17 [History] Cholecalciferol [Vitamin D3 (25 Mcg = 1000 Iu)] 50 mcg PO Q48H 04/25/21 [History] Magnesium Oxide [Magox 400] 400 mg PO DAILY 04/25/21 [History] predniSONE 10 mg PO DAILY 04/25/21 [History] Aspirin EC [Ecotrin Low Dose] 324 mg PO DAILY 05/03/21 [History] Epoetin Martin [Epogen] 9,000 unit SQ MOTUSA 05/08/21 [History] Metoprolol Tartrate [Lopressor] 12.5 mg PO DAILY PRN 05/08/21 [History] Apixaban [Eliquis] 5 mg PO BID 30 Days #60 tab 05/16/21 [Rx]
[2021-05-26 11:27] VITALS: BP 191/100; RESP 17; TEMP 97.5
== END 2021-05-26 11:35 | disposition home or self-care (01) ==
LOC: 6NMEDSUR 07:43 → CATHCVL 07:43
PROVIDERS: ATTEND Surgery
DX: T85.611A Breakdown (mechanical) of intraperitoneal dialysis catheter, initial encounter (principal); Z79.82 Long term (current) use of aspirin; Z79.890 Hormone replacement therapy; Z79.52 Long term (current) use of systemic steroids; Z79.899 Other long term (current) drug therapy; Z79.01 Long term (current) use of anticoagulants; N18.9 Chronic kidney disease, unspecified
CPT/HCPCS: 36581; 77001; C1769 ×2; C1750; J2001

== ENCOUNTER 2021-05-26 18:17 | Emergency (ER) | payer MEDICARE, OTHER ==
[2021-05-26] MEDS ORDERED: TRANEXAMIC ACID 1,000 MG in SODIUM CHLORIDE 0.9% 100 ML IRRIGATION ONE (18:43)
[2021-05-26] MEDS ORDERED: LIDOCAINE 2%-EPI 1:100,000 20 ML VIAL SQ STA (18:46)
--- NOTE | 2021-05-26 18:56 | ED ---
Recheck HPI - General Source: RN notes reviewed <Ishan Cha - Last Filed: 05/26/21 22:31> <Bonny Leslie - Last Filed: 06/04/21 00:06> - General Stated Complaint: bleeding around picc line Time Seen by Provider: 05/26/21 18:30 - History of Present Illness Initial Comments: Patient presents to the emergency department for bleeding from around her dialysis catheter in her groin. Patient had that placed earlier today by Dr. Jacobsen. Patient presents for slow oozing from around the site. No other complaints. No headache, no fever or chills, no changes in vision or hearing, no sore throat or difficulty with speech, no neck pain, no chest pain or shortness of breath, no abdominal pain, no nausea or vomiting, no changes in urination or bowel movements, no numbness or tingling, no extremity pain, no skin rashes or lesions. (Ishan Cha) - Related Data Home Medications Medication Instructions Recorded Confirmed ALPRAZolam [Xanax] 0.5 mg PO HS 12/18/17 05/26/21 Levothyroxine Sodium [Synthroid] 50 mcg PO DAILY 12/18/17 05/26/21 Montelukast [Singulair] 10 mg PO HS 12/18/17 05/26/21 allopurinoL [Zyloprim] 100 mg PO DAILY 12/18/17 05/26/21 Cholecalciferol [Vitamin D3 (25 50 mcg PO Q48H 04/25/21 05/26/21 Mcg = 1000 Iu)] Magnesium Oxide [Magox 400] 400 mg PO DAILY 04/25/21 05/26/21 predniSONE 10 mg PO DAILY 04/25/21 05/26/21 Aspirin EC [Ecotrin Low Dose] 324 mg PO DAILY 05/03/21 05/26/21 Epoetin Martin [Epogen] 9,000 unit SQ MOTUSA 05/08/21 05/26/21 Metoprolol Tartrate [Lopressor] 12.5 mg PO DAILY PRN 05/08/21 05/26/21 Previous Rx's Medication Instructions Recorded Apixaban [Eliquis] 5 mg PO BID 30 Days #60 tab 05/16/21 Allergies Allergy/AdvReac Type Severity Reaction Status Date / Time codeine Allergy Rash/Hives Verified 05/26/21 20:59 cyclobenzaprine Allergy Rash/Hives Verified 05/26/21 20:59 [From Flexeril] diphenhydramine Allergy Anaphylaxis Verified 05/26/21 20:59 [From Benadryl] hydromorphone [From Dilaudid] Allergy Rash/Hives Verified 05/26/21 20:59 hydroxyzine Allergy Anaphylaxis Verified 05/26/21 20:59 Iodinated Contrast Media Allergy Anaphylaxis Verified 05/26/21 20:59 [Iodinated Contrast- Oral and IV Dye] latex Allergy Rash/Hives Verified 05/26/21 20:59 pantoprazole [From Protonix] Allergy Anaphylaxis Verified 05/26/21 20:59 Penicillins Allergy Rash/Hives Verified 05/26/21 20:59 potassium chloride Allergy Rash/Hives Verified 05/26/21 20:59 pregabalin [From Lyrica] Allergy Anaphylaxis Verified 05/26/21 20:59 sevelamer Allergy Rash/Hives Verified 05/26/21 20:59 warfarin [From Coumadin] Allergy Anaphylaxis Verified 05/26/21 20:59 acetaminophen [From Vicodin] AdvReac Nausea & Verified 05/26/21 20:59 Vomiting aripiprazole [From Abilify] AdvReac Abdominal Verified 05/26/21 20:59 Pain aztreonam AdvReac Unknown Verified 05/26/21 20:59 calcitriol AdvReac Unknown Verified 05/26/21 20:59 cefadroxil AdvReac Unknown Verified 05/26/21 20:59 enalapril AdvReac Unknown Verified 05/26/21 20:59 hydrocodone [From Vicodin] AdvReac Nausea & Verified 05/26/21 20:59 Vomiting Influenza Virus Vaccines AdvReac Unknown Verified 05/26/21 20:59 levofloxacin [From Levaquin] AdvReac Abdominal Verified 05/26/21 20:59 Pain meloxicam [From Mobic] AdvReac Abdominal Verified 05/26/21 20:59 Pain morphine AdvReac Unknown Verified 05/26/21 20:59 propoxyphene AdvReac Unknown Verified 05/26/21 20:59 Sulfa (Sulfonamide AdvReac Vomiting Verified 05/26/21 20:59 Antibiotics) tramadol AdvReac Unknown Verified 05/26/21 20:59 Review of Systems ROS Other: All systems not noted in ROS Statement are negative. <Ishan Cha - Last Filed: 05/26/21 22:31> ROS Other: All systems not noted in ROS Statement are negative. <Bonny Leslie - Last Filed: 06/04/21 00:06> ROS Statement: Those systems with pertinent positive or pertinent negative responses have been documented in the HPI. Past Medical History Past Medical History: Atrial Fibrillation, GERD/Reflux, Renal Disease, Thyroid Disorder Additional Past Medical History / Comment(s): dialysis M/W/T/TH/SAT, diverticulitis , blind, shingles in February History of Any Multi-Drug Resistant Organisms: None Reported Additional Past Surgical History / Comment(s): fistula placement , thyroidectomy Past Anesthesia/Blood Transfusion Reactions: Previous Problems w/ Anesthesia Additional Past Anesthesia/Blood Transfusion Reaction / Comment(s): Pt has his surgery done with local anesthetics d/t general anesthesia causing facial edema and difficulty waking. Past Psychological History: No Psychological Hx Reported Additional Psychological History / Comment(s): Pt resides with his mother who is his caregiver. Pt ambulates without device/he memorizes where furniture is placed. Mother performs hemodialysis 4 days a week. 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 No home care. Smoking Status: Unknown if ever smoked Past Alcohol Use History: None Reported Past Drug Use History: None Reported - Past Family History Mother Family Medical History: Fibromyalgia, Osteoarthritis (OA) Additional Family Medical History / Comment(s): Lupus Family Family Medical History: No Reported History Additional Family Medical History / Comment(s): ETOH abuse <Ishan Cha - Last Filed: 05/26/21 22:31> General Exam General appearance: alert, in no apparent distress Head exam: Present: atraumatic, normocephalic, normal inspection Eye exam: Present: EOMI, other (Patient chronically blind). Absent: scleral icterus, conjunctival injection, periorbital swelling ENT exam: Present: normal exam, mucous membranes moist Neck exam: Present: normal inspection. Absent: tenderness, meningismus, lymphadenopathy Respiratory exam: Present: normal lung sounds bilaterally. Absent: respiratory distress, wheezes, rales, rhonchi, stridor Cardiovascular Exam: Present: regular rate, normal rhythm, normal heart sounds. Absent: systolic murmur, diastolic murmur, rubs, gallop, clicks GI/Abdominal exam: Present: soft, normal bowel sounds. Absent: distended, tenderness, guarding, rebound, rigid Extremities exam: Present: normal inspection, full ROM, normal capillary refill, other (Patient has 2 sites in the right groin with slow venous oozing. Sutures in place above the hemodialysis catheter in the right groin. No evidence for arterial bleeding. Catheter in place). Absent: tenderness, pedal edema, joint swelling, calf tenderness Back exam: Present: normal inspection Neurological exam: Present: alert, oriented X3, CN II-XII intact Psychiatric exam: Present: normal affect, normal mood Skin exam: Present: warm, dry, intact, normal color. Absent: rash <Ishan Cha - Last Filed: 05/26/21 22:31> - General Exam Comments Initial Comments: 50-year-old female does not appear to be in any significant distress. Not ill or toxic. (Ishan Cha) Course <Ishan Cha - Last Filed: 05/26/21 22:31> Vital Signs 05/26/21 05/26/21 05/26/21 18:36 20:41 22:00 Temperature 97.8 F Pulse Rate 65 121 H 120 H Respiratory 16 24 20 Rate Blood Pressure 187/98 130/95 135/90 O2 Sat by Pulse 99 100 98 Oximetry 05/26/21 05/26/21 22:16 23:25 Temperature 98 F Pulse Rate 82 84 Respiratory 20 22 Rate Blood Pressure 138/98 138/98 O2 Sat by Pulse 97 97 Oximetry - Reevaluation(s) Reevaluation #1: 05/26/21 22:32 Medical record is reviewed Symptoms are improved here in the emergency department Patient is informed of results and questions answered Patient in no distress Note that the patient did have an episode of tachycardia here in the ER. Patient has brittle atrial fibrillation and is in and out of it. Patient had missed his when necessary dose of Toprol at home. This was given here in the ER. On recheck the patient's heart rate was 80. Patient was asymptomatic and ready to be discharged. Patient had no recurrent bleeding (Ishan Cha) Procedures - Laceration Laceration #1 Size (cm): 1 Description: clean Depth: simple, single layer Anesthetic Used: lidocaine 1%, with epi Amount (mls): 2 Pre-repair: irrigated extensively Type of Sutures: vicryl Size of Sutures: 3-0 Number of Sutures: 1 Patient Tolerated Procedure: well, no complications <SemajIshan - Last Filed: 05/26/21 22:31> - Laceration Laceration #1 Additional Comments: 1 [id number] suture was used using 3-0 Vicryl to control bleeding from the newly placed right groin hemodialysis catheter site (Ishan Cha) Medical Decision Making <Ishan Cha - Last Filed: 05/26/21 22:31> <Bonny Leslie - Last Filed: 06/04/21 00:06> - Medical Decision Making Patient with history of chronic atrial fibrillation. Came to the ER for small amount of venous oozing from the right groin venous catheter site. Patient skipped dialysis at home because his is unsure if she could give the dialysis with a small amount of venous oozing. I did ensure her that this was okay. Admission was offered. Both the patient and the are wanting to do the dialysis at home. Risks discussed. Return follow-up parameters discussed in detail. All questions answered. Patient was observed for several minutes after treatment and had no breakthrough bleeding. Patient was told to return to the ER for any signs or symptoms worsen. Told to return immediately if any other problems arise. All questions answered. Treatment plan discussed. Patient in agreement Every effort has been made to ensure accuracy of this dictation. However, due to the limitations of electronic medical records and dictation devices, errors in charting still occur. (Ishan Cha) I was available for consultation in the emergency department. The history and physical exam were done by the midlevel provider. I was consulted for this patients care. I reviewed the case with the midlevel provider and based on their presentation of the patient, I agree with the assessment, medical decision making and plan of care as documented. Chart was dictated using [employer] dictation software. Attempts were made to correct any dictation errors however some typographical errors may persist. (Bonny Leslie) Disposition Is patient prescribed a controlled substance at d/c from ED?: No Time of Disposition: 21:14 <Ishan Cha - Last Filed: 05/26/21 22:31> <Bonny Leslie - Last Filed: 06/04/21 00:06> Clinical Impression: Bleeding, History of atrial fibrillation Narrative: Bleeding from newly placed right groin hemodialysis catheter site (Ishan Cha) Disposition: HOME SELF-CARE Condition: Stable Instructions (If sedation given, give patient instructions): A-fib (Atrial Fibrillation) (ED) Additional Instructions: Follow up with your lead housekeeper as directed. He can also follow-up with the vascular surgeon, Dr. Jacobsen if needed. If any bleeding recurs, any other problems arise or any other issues involved, return to the emergency department immediately. Keep a sterile dressing over the site as directed by the vascular surgeon. Return to the ER immediately if any signs or symptoms of infection develop. Follow-up with your regular physician as directed. Return to the ER immediately if any symptoms worsen, new symptoms arise, or any other problems develop. Referrals: Mychal Jerome DO [Primary Care Provider] - 1-2 days
[2021-05-26] MEDS ORDERED: LORazepam 1 MG TAB PO STA (20:24)
[2021-05-26] MEDS ORDERED: TOPICAL SKIN ADHESIVE 1 EACH AMP TOPICAL ONE (21:00)
[2021-05-26] MEDS ORDERED: METOPROLOL TARTRATE 5 MG/5 ML VIAL IVP STA (21:33)
[2021-05-26] MEDS ORDERED: METOPROLOL TARTRATE 12.5 MG TAB PO STA (21:34)
[2021-05-26 22:17] VITALS: BP 138/98
[2021-05-27 00:01] VITALS: PULSE 84; RESP 22; TEMP 98
== END 2021-05-26 23:25 | disposition home or self-care (01) ==
LOC: EC 18:17
DX: T82.838A Hemorrhage due to vascular prosthetic devices, implants and grafts, initial encounter (principal); I48.91 Unspecified atrial fibrillation; K21.9 Gastro-esophageal reflux disease without esophagitis; Z79.01 Long term (current) use of anticoagulants; Z79.52 Long term (current) use of systemic steroids; Z79.82 Long term (current) use of aspirin; Z79.890 Hormone replacement therapy; Z79.899 Other long term (current) drug therapy
CPT/HCPCS: 12001; 96365; 96375; 99283

== ENCOUNTER 2021-06-01 09:22 | Emergency (ER) | payer MEDICARE, OTHER ==
[2021-06-01 09:31] VITALS: TEMP 97.2
[2021-06-01] MEDS ORDERED: SODIUM CHLORIDE 0.9% IVPB ONE (12:00)
[2021-06-01] MEDS ORDERED: AMIKACIN SULFATE IVPB ONE (12:00)
[2021-06-01 12:09] VITALS: BP 139/94; PULSE 75; RESP 16
--- NOTE | 2021-06-01 12:13 | ED ---
Recheck HPI - General Chief Complaint: Recheck/Abnormal Lab/Rx Stated Complaint: blood infection Time Seen by Provider: 06/01/21 10:28 Source: patient, RN notes reviewed Mode of arrival: ambulatory Limitations: no limitations - History of Present Illness Initial Comments: This is a 50-year-old male who presents to the emergency department for amikacin infusion due to bacteremia. Patient had previously left AMA and refused treatment. I spoke with his reinforcing steel erector, Dr. Jerome, who states that it has been approximately one week since his amikacin injection, and the patient is very noncompliant. Upon my evaluation of the patient, his mother is very similar with a lack of patience and refusing multiple treatment options that would be beneficial to her son. Patient states that he came with a prescription for the amikacin, which listed the dosing. I was unable to find this in the emergency room, despite checking with several nurses. Patient recommended I speak with Dr. Jerome directly, Dr. Jerome states that he did not know the dose of amikacin he required, and recommended speaking with ID or the pharmacy. I spoke with the pharmacy, and while we were trying to work out the patient's dosage, I also spoke with his dialysis nurse, who stated that the patient needed 825 mg. Most recent amikacin level was measured at 1.2. The patient has continued to recieve Primaxin and most recently had hemodialysis 2 days ago. The patient and his mother expressed anger over not having the antibiotic ready for him upon his arrival. They were also upset with how long he was taking and threatened to leave AMA. I discussed with the family that we had to figure out the patient's dosage for the most effective treatment, and this took some time to determine. Complaint: needs IV antibiotics Returns Today for: needs IV antibiotics Symptoms Since Prior Visit: no new symptoms Associated Symptoms: none - Related Data Home Medications Medication Instructions Recorded Confirmed ALPRAZolam [Xanax] 0.5 mg PO HS 12/18/17 05/26/21 Levothyroxine Sodium [Synthroid] 50 mcg PO DAILY 12/18/17 05/26/21 Montelukast [Singulair] 10 mg PO HS 12/18/17 05/26/21 allopurinoL [Zyloprim] 100 mg PO DAILY 12/18/17 05/26/21 Cholecalciferol [Vitamin D3 (25 50 mcg PO Q48H 04/25/21 05/26/21 Mcg = 1000 Iu)] Magnesium Oxide [Magox 400] 400 mg PO DAILY 04/25/21 05/26/21 predniSONE 10 mg PO DAILY 04/25/21 05/26/21 Aspirin EC [Ecotrin Low Dose] 324 mg PO DAILY 05/03/21 05/26/21 Epoetin Martin [Epogen] 9,000 unit SQ MOTUSA 05/08/21 05/26/21 Metoprolol Tartrate [Lopressor] 12.5 mg PO DAILY PRN 05/08/21 05/26/21 Previous Rx's Medication Instructions Recorded Apixaban [Eliquis] 5 mg PO BID 30 Days #60 tab 05/16/21 Allergies Allergy/AdvReac Type Severity Reaction Status Date / Time codeine Allergy Rash/Hives Verified 05/26/21 20:59 cyclobenzaprine Allergy Rash/Hives Verified 05/26/21 20:59 [From Flexeril] diphenhydramine Allergy Anaphylaxis Verified 05/26/21 20:59 [From Benadryl] hydromorphone [From Dilaudid] Allergy Rash/Hives Verified 05/26/21 20:59 hydroxyzine Allergy Anaphylaxis Verified 05/26/21 20:59 Iodinated Contrast Media Allergy Anaphylaxis Verified 05/26/21 20:59 [Iodinated Contrast- Oral and IV Dye] latex Allergy Rash/Hives Verified 05/26/21 20:59 pantoprazole [From Protonix] Allergy Anaphylaxis Verified 05/26/21 20:59 Penicillins Allergy Rash/Hives Verified 05/26/21 20:59 potassium chloride Allergy Rash/Hives Verified 05/26/21 20:59 pregabalin [From Lyrica] Allergy Anaphylaxis Verified 05/26/21 20:59 sevelamer Allergy Rash/Hives Verified 05/26/21 20:59 warfarin [From Coumadin] Allergy Anaphylaxis Verified 05/26/21 20:59 acetaminophen [From Vicodin] AdvReac Nausea & Verified 05/26/21 20:59 Vomiting aripiprazole [From Abilify] AdvReac Abdominal Verified 05/26/21 20:59 Pain aztreonam AdvReac Unknown Verified 05/26/21 20:59 calcitriol AdvReac Unknown Verified 05/26/21 20:59 cefadroxil AdvReac Unknown Verified 05/26/21 20:59 enalapril AdvReac Unknown Verified 05/26/21 20:59 hydrocodone [From Vicodin] AdvReac Nausea & Verified 05/26/21 20:59 Vomiting Influenza Virus Vaccines AdvReac Unknown Verified 05/26/21 20:59 levofloxacin [From Levaquin] AdvReac Abdominal Verified 05/26/21 20:59 Pain meloxicam [From Mobic] AdvReac Abdominal Verified 05/26/21 20:59 Pain morphine AdvReac Unknown Verified 05/26/21 20:59 propoxyphene AdvReac Unknown Verified 05/26/21 20:59 Sulfa (Sulfonamide AdvReac Vomiting Verified 05/26/21 20:59 Antibiotics) tramadol AdvReac Unknown Verified 05/26/21 20:59 Review of Systems ROS Statement: Those systems with pertinent positive or pertinent negative responses have been documented in the HPI. ROS Other: All systems not noted in ROS Statement are negative. Constitutional: Denies: fever, chills ENT: Denies: ear pain, throat pain Respiratory: Denies: cough, dyspnea Cardiovascular: Denies: chest pain, palpitations Gastrointestinal: Denies: abdominal pain, nausea, vomiting, diarrhea Musculoskeletal: Denies: back pain Skin: Denies: rash, lesions Neurological: Denies: headache Past Medical History Past Medical History: Atrial Fibrillation, GERD/Reflux, Renal Disease, Thyroid Disorder Additional Past Medical History / Comment(s): dialysis M/W/T/TH/SAT, diverticulitis , blind, shingles in February History of Any Multi-Drug Resistant Organisms: None Reported Additional Past Surgical History / Comment(s): fistula placement , thyroidectomy Past Anesthesia/Blood Transfusion Reactions: Previous Problems w/ Anesthesia Additional Past Anesthesia/Blood Transfusion Reaction / Comment(s): Pt has his surgery done with local anesthetics d/t general anesthesia causing facial edema and difficulty waking. Past Psychological History: No Psychological Hx Reported Smoking Status: Unknown if ever smoked Past Alcohol Use History: None Reported Past Drug Use History: None Reported - Past Family History Mother Family Medical History: Fibromyalgia, Osteoarthritis (OA) Additional Family Medical History / Comment(s): Lupus Family Family Medical History: No Reported History Additional Family Medical History / Comment(s): ETOH abuse General Exam Limitations: no limitations General appearance: alert, in no apparent distress Head exam: Present: atraumatic, normocephalic, normal inspection Respiratory exam: Present: normal lung sounds bilaterally. Absent: respiratory distress, wheezes, rales, rhonchi, stridor Cardiovascular Exam: Present: regular rate, normal rhythm, normal heart sounds. Absent: systolic murmur, diastolic murmur, rubs, gallop, clicks Neurological exam: Present: alert, oriented X3, CN II-XII intact Psychiatric exam: Present: normal affect, normal mood Course Vital Signs 06/01/21 06/01/21 09:28 12:09 Temperature 97.2 F L Pulse Rate 102 H 75 Respiratory 18 16 Rate Blood Pressure 130/72 139/94 O2 Sat by Pulse 99 95 Oximetry Medical Decision Making - Medical Decision Making This is a 50-year-old male who presents to the emergency department for an Amikacin infusion. Patient received 825 mg per the instruction of his hemodialysis nurse. The patient and his mother were fairly irritable during the visit. They were angry that the medication wasn't ready upon arrival, and that the dose took some time to figure out. Patient was reassured that we are doing everything we can as fast as we were able, however in order to provide the best care, we needed to ensure he is getting the correct dosage. The patient and his mother threatened to leave prior to the amikacin infusion, however he did end up staying for the treatment. Amikacin values will be rechecked by the hemodialysis nurse and he'll be instructed on how to move forward with the amikacin infusions. Return precautions reviewed in depth, the patient is instructed to return to the emergency department if symptoms worsen or do not improve. Patient verbalized understanding. This case was discussed in detail with the attending ED physician. Presentation, findings, and treatment plan discussed in detail as well. Disposition Clinical Impression: Encounter for medication administration, Bacteremia Disposition: HOME SELF-CARE Instructions (If sedation given, give patient instructions): Hemodialysis (DC) Additional Instructions: Return to the emergency department if you develop fevers, chills, or increasing pain. Follow up with nephrology as instructed. Continue with hemodialysis as advised and return for future amikacin injections as instructed. Is patient prescribed a controlled substance at d/c from ED?: No Referrals: Mychal Jerome, [Primary Care Provider] - 1-2 days
== END 2021-06-01 13:27 | disposition home or self-care (01) ==
LOC: EC 09:22
DX: R78.81 Bacteremia (principal); K21.9 Gastro-esophageal reflux disease without esophagitis; I48.91 Unspecified atrial fibrillation; E07.9 Disorder of thyroid, unspecified; H54.7 Unspecified visual loss; Z88.5 Allergy status to narcotic agent; Z88.8 Allergy status to other drugs, medicaments and biological substances; Z88.1 Allergy status to other antibiotic agents; Z88.7 Allergy status to serum and vaccine; Z91.041 Radiographic dye allergy status; Z91.040 Latex allergy status; Z88.0 Allergy status to penicillin; Z88.6 Allergy status to analgesic agent; Z88.2 Allergy status to sulfonamides; Z79.899 Other long term (current) drug therapy; Z79.82 Long term (current) use of aspirin; Z79.890 Hormone replacement therapy
CPT/HCPCS: 99283; 96365; J0278

== ENCOUNTER 2021-07-02 12:47 | Emergency (ER) | payer MEDICARE, OTHER ==
[2021-07-02 13:02] VITALS: BP 138/82; PULSE 82; RESP 16; TEMP 97.8
[2021-07-02] MEDS ORDERED: ALTEPLASE 2 MG VIAL (CATHFLO) MISCELLANE ONE (13:33)
[2021-07-02] MEDS ORDERED: ALTEPLASE 2 MG VIAL (CATHFLO) IV STA (13:33)
--- NOTE | 2021-07-02 13:38 | ED ---
General Adult HPI - General Chief complaint: Recheck/Abnormal Lab/Rx Stated complaint: revisit/port is blocked Time Seen by Provider: 07/02/21 13:29 Source: patient, family, RN notes reviewed Mode of arrival: ambulatory Limitations: no limitations - History of Present Illness Initial comments: Patient is a pleasant 51-year-old male presenting to the emergency department with concern for poor functioning of his dialysis shunt. Patient has shunt right groin. Patient does home hemodialysis. Patient has had similar problem several times previously needing infusion of medication to open it. Patient denies any pain. No redness. - Related Data Home Medications Medication Instructions Recorded Confirmed ALPRAZolam [Xanax] 0.5 mg PO HS 12/18/17 05/26/21 Levothyroxine Sodium [Synthroid] 50 mcg PO DAILY 12/18/17 05/26/21 Montelukast [Singulair] 10 mg PO HS 12/18/17 05/26/21 allopurinoL [Zyloprim] 100 mg PO DAILY 12/18/17 05/26/21 Cholecalciferol [Vitamin D3 (25 50 mcg PO Q48H 04/25/21 05/26/21 Mcg = 1000 Iu)] Magnesium Oxide [Magox 400] 400 mg PO DAILY 04/25/21 05/26/21 predniSONE 10 mg PO DAILY 04/25/21 05/26/21 Aspirin EC [Ecotrin Low Dose] 324 mg PO DAILY 05/03/21 05/26/21 Epoetin Martin [Epogen] 9,000 unit SQ MOTUSA 05/08/21 05/26/21 Metoprolol Tartrate [Lopressor] 12.5 mg PO DAILY PRN 05/08/21 05/26/21 Previous Rx's Medication Instructions Recorded Apixaban [Eliquis] 5 mg PO BID 30 Days #60 tab 05/16/21 Allergies Allergy/AdvReac Type Severity Reaction Status Date / Time codeine Allergy Rash/Hives Verified 07/02/21 13:02 cyclobenzaprine Allergy Rash/Hives Verified 07/02/21 13:02 [From Flexeril] diphenhydramine Allergy Anaphylaxis Verified 07/02/21 13:02 [From Benadryl] hydromorphone [From Dilaudid] Allergy Rash/Hives Verified 07/02/21 13:02 hydroxyzine Allergy Anaphylaxis Verified 07/02/21 13:02 Iodinated Contrast Media Allergy Anaphylaxis Verified 07/02/21 13:02 [Iodinated Contrast- Oral and IV Dye] latex Allergy Rash/Hives Verified 07/02/21 13:02 pantoprazole [From Protonix] Allergy Anaphylaxis Verified 07/02/21 13:02 Penicillins Allergy Rash/Hives Verified 07/02/21 13:02 potassium chloride Allergy Rash/Hives Verified 07/02/21 13:02 pregabalin [From Lyrica] Allergy Anaphylaxis Verified 07/02/21 13:02 sevelamer Allergy Rash/Hives Verified 07/02/21 13:02 warfarin [From Coumadin] Allergy Anaphylaxis Verified 07/02/21 13:02 acetaminophen [From Vicodin] AdvReac Nausea & Verified 07/02/21 13:02 Vomiting aripiprazole [From Abilify] AdvReac Abdominal Verified 07/02/21 13:02 Pain aztreonam AdvReac Unknown Verified 07/02/21 13:02 calcitriol AdvReac Unknown Verified 07/02/21 13:02 cefadroxil AdvReac Unknown Verified 07/02/21 13:02 enalapril AdvReac Unknown Verified 07/02/21 13:02 hydrocodone [From Vicodin] AdvReac Nausea & Verified 07/02/21 13:02 Vomiting Influenza Virus Vaccines AdvReac Unknown Verified 07/02/21 13:02 levofloxacin [From Levaquin] AdvReac Abdominal Verified 07/02/21 13:02 Pain meloxicam [From Mobic] AdvReac Abdominal Verified 07/02/21 13:02 Pain morphine AdvReac Unknown Verified 07/02/21 13:02 propoxyphene AdvReac Unknown Verified 07/02/21 13:02 Sulfa (Sulfonamide AdvReac Vomiting Verified 07/02/21 13:02 Antibiotics) tramadol AdvReac Unknown Verified 07/02/21 13:02 Review of Systems ROS Statement: Those systems with pertinent positive or pertinent negative responses have been documented in the HPI. ROS Other: All systems not noted in ROS Statement are negative. Constitutional: Denies: fever Eyes: Reports: other (Patient is blind) ENT: Denies: throat pain Respiratory: Denies: cough Cardiovascular: Denies: chest pain Endocrine: Denies: fatigue Gastrointestinal: Denies: abdominal pain Genitourinary: Denies: dysuria Musculoskeletal: Denies: back pain Skin: Denies: rash Neurological: Denies: weakness Past Medical History Past Medical History: Atrial Fibrillation, GERD/Reflux, Renal Disease, Thyroid Disorder Additional Past Medical History / Comment(s): dialysis M/W/T//FRI, diverticulitis , blind, shingles in February History of Any Multi-Drug Resistant Organisms: None Reported Additional Past Surgical History / Comment(s): fistula placement , thyroidectomy Past Anesthesia/Blood Transfusion Reactions: Previous Problems w/ Anesthesia Additional Past Anesthesia/Blood Transfusion Reaction / Comment(s): Pt has his surgery done with local anesthetics d/t general anesthesia causing facial edema and difficulty waking. Past Psychological History: No Psychological Hx Reported Smoking Status: Never smoker Past Alcohol Use History: None Reported Past Drug Use History: None Reported - Past Family History Mother Family Medical History: Fibromyalgia, Osteoarthritis (OA) Additional Family Medical History / Comment(s): Lupus Family Family Medical History: No Reported History Additional Family Medical History / Comment(s): ETOH abuse General Exam Limitations: no limitations General appearance: alert, in no apparent distress Head exam: Present: normocephalic Respiratory exam: Present: normal lung sounds bilaterally Cardiovascular Exam: Present: regular rate, normal rhythm GI/Abdominal exam: Present: soft. Absent: tenderness Extremities exam: Present: other (Dialysis port right femoral region without swelling or discomfort or erythema.) Neurological exam: Present: alert Psychiatric exam: Present: normal affect, normal mood Skin exam: Present: normal color Course Vital Signs 07/02/21 12:59 Temperature 97.8 F Pulse Rate 82 Respiratory 16 Rate Blood Pressure 138/82 O2 Sat by Pulse 99 Oximetry Medical Decision Making - Medical Decision Making Alteplase placed by dialysis nurse. Catheter functional. Patient to be discharged with close follow-up with vascular surgeon. Disposition Clinical Impression: Dialysis catheter clot or failure Disposition: HOME SELF-CARE Condition: Stable Instructions (If sedation given, give patient instructions): End Stage Kidney Disease (ED) Additional Instructions: Please do follow-up vascular surgeon the next day or 2 for recheck. Return for nonfunctioning dialysis port, change or worsening symptoms or other concerns. Is patient prescribed a controlled substance at d/c from ED?: No Referrals: Scottie Agarwal DO [Doctor of Osteopathic Medicine] - 1-2 days Carlos Bright MD [STAFF PHYSICIAN] - 1-2 days Time of Disposition: 15:52
== END 2021-07-02 16:03 | disposition home or self-care (01) ==
LOC: EC 12:47
DX: T82.41XA Breakdown (mechanical) of vascular dialysis catheter, initial encounter (principal); I48.91 Unspecified atrial fibrillation; K21.9 Gastro-esophageal reflux disease without esophagitis; E07.9 Disorder of thyroid, unspecified; Z99.2 Dependence on renal dialysis; Z79.82 Long term (current) use of aspirin; Z79.01 Long term (current) use of anticoagulants; Z88.5 Allergy status to narcotic agent; Z88.1 Allergy status to other antibiotic agents; Z88.0 Allergy status to penicillin; Z88.2 Allergy status to sulfonamides; Z88.7 Allergy status to serum and vaccine; Z91.040 Latex allergy status; Z79.52 Long term (current) use of systemic steroids; X58.XXXA Exposure to other specified factors, initial encounter
CPT/HCPCS: 99283; 96374; J2997

== ENCOUNTER 2021-07-30 12:43 | Emergency (ER) | payer MEDICARE, OTHER ==
[2021-07-30 13:36] VITALS: BP 130/78; PULSE 73; RESP 16; TEMP 98.7
[2021-07-30] MEDS ORDERED: ALTEPLASE 2 MG VIAL (CATHFLO) IV STA ×2 (16:55→16:56)
--- NOTE | 2021-07-30 17:58 | ED ---
General Adult HPI - General Chief complaint: Recheck/Abnormal Lab/Rx Stated complaint: dialysis port clogged Time Seen by Provider: 07/30/21 16:20 Source: patient Mode of arrival: ambulatory Limitations: no limitations - History of Present Illness Initial comments: Patient is a 51-year-old male presenting with chief complaint of obstructed port. Patient has right-sided groin were for hemodialysis which he receives 5 times a week. His relative at bedside states that they were unable to flush it today. He last received dialysis on Friday, he last received TPA in the [facility] on . He usually sees Dr. Jacobsen for access issues, patient states that his regular physician did not have any TPA in the office today. Patient has been seen here multiple times for this issue. His port was last replaced about end of June. He denies any pain, swelling, redness, fever, chills, nausea, vomiting, chest pain, shortness of breath, abdominal pain, discharge or bleeding from the port site. - Related Data Home Medications Medication Instructions Recorded Confirmed ALPRAZolam [Xanax] 0.5 mg PO HS 12/18/17 05/26/21 Levothyroxine Sodium [Synthroid] 50 mcg PO DAILY 12/18/17 05/26/21 Montelukast [Singulair] 10 mg PO HS 12/18/17 05/26/21 allopurinoL [Zyloprim] 100 mg PO DAILY 12/18/17 05/26/21 Cholecalciferol [Vitamin D3 (25 50 mcg PO Q48H 04/25/21 05/26/21 Mcg = 1000 Iu)] Magnesium Oxide [Magox 400] 400 mg PO DAILY 04/25/21 05/26/21 predniSONE 10 mg PO DAILY 04/25/21 05/26/21 Aspirin EC [Ecotrin Low Dose] 324 mg PO DAILY 05/03/21 05/26/21 Epoetin Martin [Epogen] 9,000 unit SQ MOTUSA 05/08/21 05/26/21 Metoprolol Tartrate [Lopressor] 12.5 mg PO DAILY PRN 05/08/21 05/26/21 Previous Rx's Medication Instructions Recorded Apixaban [Eliquis] 5 mg PO BID 30 Days #60 tab 05/16/21 Allergies Allergy/AdvReac Type Severity Reaction Status Date / Time codeine Allergy Rash/Hives Verified 07/30/21 13:33 cyclobenzaprine Allergy Rash/Hives Verified 07/30/21 13:33 [From Flexeril] diphenhydramine Allergy Anaphylaxis Verified 07/30/21 13:33 [From Benadryl] hydromorphone [From Dilaudid] Allergy Rash/Hives Verified 07/30/21 13:33 hydroxyzine Allergy Anaphylaxis Verified 07/30/21 13:33 Iodinated Contrast Media Allergy Anaphylaxis Verified 07/30/21 13:33 [Iodinated Contrast- Oral and IV Dye] latex Allergy Rash/Hives Verified 07/30/21 13:33 pantoprazole [From Protonix] Allergy Anaphylaxis Verified 07/30/21 13:33 Penicillins Allergy Rash/Hives Verified 07/30/21 13:33 potassium chloride Allergy Rash/Hives Verified 07/30/21 13:33 pregabalin [From Lyrica] Allergy Anaphylaxis Verified 07/30/21 13:33 sevelamer Allergy Rash/Hives Verified 07/30/21 13:33 warfarin [From Coumadin] Allergy Anaphylaxis Verified 07/30/21 13:33 acetaminophen [From Vicodin] AdvReac Nausea & Verified 07/30/21 13:33 Vomiting aripiprazole [From Abilify] AdvReac Abdominal Verified 07/30/21 13:33 Pain aztreonam AdvReac Unknown Verified 07/30/21 13:33 calcitriol AdvReac Unknown Verified 07/30/21 13:33 cefadroxil AdvReac Unknown Verified 07/30/21 13:33 enalapril AdvReac Unknown Verified 07/30/21 13:33 hydrocodone [From Vicodin] AdvReac Nausea & Verified 07/30/21 13:33 Vomiting Influenza Virus Vaccines AdvReac Unknown Verified 07/30/21 13:33 levofloxacin [From Levaquin] AdvReac Abdominal Verified 07/30/21 13:33 Pain meloxicam [From Mobic] AdvReac Abdominal Verified 07/30/21 13:33 Pain morphine AdvReac Unknown Verified 07/30/21 13:33 propoxyphene AdvReac Unknown Verified 07/30/21 13:33 Sulfa (Sulfonamide AdvReac Vomiting Verified 07/30/21 13:33 Antibiotics) tramadol AdvReac Unknown Verified 07/30/21 13:33 Review of Systems ROS Statement: Those systems with pertinent positive or pertinent negative responses have been documented in the HPI. ROS Other: All systems not noted in ROS Statement are negative. Past Medical History Past Medical History: Atrial Fibrillation, GERD/Reflux, Renal Disease, Thyroid Disorder Additional Past Medical History / Comment(s): dialysis M/W/T//FRI, diverticulitis , blind, shingles in February History of Any Multi-Drug Resistant Organisms: None Reported Additional Past Surgical History / Comment(s): fistula placement , thyroidectomy Past Anesthesia/Blood Transfusion Reactions: Previous Problems w/ Anesthesia Additional Past Anesthesia/Blood Transfusion Reaction / Comment(s): Pt has his surgery done with local anesthetics d/t general anesthesia causing facial edema and difficulty waking. Past Psychological History: No Psychological Hx Reported Smoking Status: Never smoker Past Alcohol Use History: None Reported Past Drug Use History: None Reported - Past Family History Mother Family Medical History: Fibromyalgia, Osteoarthritis (OA) Additional Family Medical History / Comment(s): Lupus Family Family Medical History: No Reported History Additional Family Medical History / Comment(s): ETOH abuse General Exam Limitations: no limitations General appearance: alert, in no apparent distress Head exam: Present: atraumatic, normocephalic, normal inspection Eye exam: Present: normal appearance, EOMI. Absent: scleral icterus Neck exam: Present: normal inspection Respiratory exam: Present: normal lung sounds bilaterally. Absent: respiratory distress, wheezes, rales, rhonchi, stridor Cardiovascular Exam: Present: regular rate, normal rhythm, normal heart sounds. Absent: systolic murmur, diastolic murmur, rubs, gallop, clicks Neurological exam: Present: alert, oriented X3, CN II-XII intact Psychiatric exam: Present: normal affect, normal mood Skin exam: Present: warm, dry, intact, normal color. Absent: rash Course Vital Signs 07/30/21 13:33 Temperature 98.7 F Pulse Rate 73 Respiratory 16 Rate Blood Pressure 130/78 O2 Sat by Pulse 95 Oximetry Medical Decision Making - Medical Decision Making Patient is a 51-year-old male presenting for assistance with his hemodialysis port. Report was unable to be flushed today. He last received dialysis on Friday, he last had tPA instilled into the [facility] on . Examination is grossly normal. I discussed with Dr. Leslie the approach required for this case. She instructed me to speak Dr. Keys. Per Dr. Keys's recommendation, Cathflo alteplase was ordered. When I returned to reevaluate the patient, patient and his family member were not at bedside. After looking for the patient it was determined that he eloped without speaking to nursing staff or myself. Disposition Clinical Impression: Hemodialysis catheter dysfunction Narrative: Patient eloped without speaking to the nurse or I Disposition: Left Against Medical Advice Condition: Undetermined Additional Instructions: Patient should follow-up with PCP and Dr. Keys. Patient should report back to ER with any worsening symptoms. Is patient prescribed a controlled substance at d/c from ED?: No Referrals: None,Stated [Primary Care Provider] - 1-2 days Time of Disposition: 17:57
== END 2021-07-30 17:30 | disposition left against medical advice (07) ==
LOC: EC 12:43
DX: T82.49XA Other complication of vascular dialysis catheter, initial encounter (principal); I48.91 Unspecified atrial fibrillation; K21.9 Gastro-esophageal reflux disease without esophagitis; Z79.01 Long term (current) use of anticoagulants; Z79.82 Long term (current) use of aspirin; Z79.899 Other long term (current) drug therapy; Z99.2 Dependence on renal dialysis
CPT/HCPCS: 99283

== ENCOUNTER 2021-08-09 07:24 | Emergency (ER) | payer MEDICARE, OTHER ==
[2021-08-09 07:30] VITALS: BP 116/70; PULSE 82; RESP 16; TEMP 97.6
[2021-08-09] MEDS ORDERED: ALTEPLASE 2 MG VIAL (CATHFLO) IV STA ×2 (08:08)
--- NOTE | 2021-08-09 09:04 | ED ---
General Adult HPI - General Chief complaint: Recheck/Abnormal Lab/Rx Stated complaint: Port is clogged Time Seen by Provider: 08/09/21 07:30 Source: patient Mode of arrival: ambulatory Limitations: no limitations - History of Present Illness Initial comments: 51-year-old male on home hemodialysis presents to the emergency department for a clogged right femoral catheter. Patient is known to the emergency department of present several times for catheter malfunction. Reports his last dialysis was on Friday. They attempted to do dialysis today and were unable to draw from the ports. Follows with Dr. Jacobsen. Patient states he cannot have fistulas or grafting of his upper extremities and therefore is history clear reliant on his right groin permacath. He denies any fevers or chills. Patient does not take any blood thinners. No other alleviating, precipitating modifying factors - Related Data Home Medications Medication Instructions Recorded Confirmed ALPRAZolam [Xanax] 0.5 mg PO HS 12/18/17 05/26/21 Levothyroxine Sodium [Synthroid] 50 mcg PO DAILY 12/18/17 05/26/21 Montelukast [Singulair] 10 mg PO HS 12/18/17 05/26/21 allopurinoL [Zyloprim] 100 mg PO DAILY 12/18/17 05/26/21 Cholecalciferol [Vitamin D3 (25 50 mcg PO Q48H 04/25/21 05/26/21 Mcg = 1000 Iu)] Magnesium Oxide [Magox 400] 400 mg PO DAILY 04/25/21 05/26/21 predniSONE 10 mg PO DAILY 04/25/21 05/26/21 Aspirin EC [Ecotrin Low Dose] 324 mg PO DAILY 05/03/21 05/26/21 Epoetin Martin [Epogen] 9,000 unit SQ MOTUSA 05/08/21 05/26/21 Metoprolol Tartrate [Lopressor] 12.5 mg PO DAILY PRN 05/08/21 05/26/21 Previous Rx's Medication Instructions Recorded Apixaban [Eliquis] 5 mg PO BID 30 Days #60 tab 05/16/21 Allergies Allergy/AdvReac Type Severity Reaction Status Date / Time codeine Allergy Rash/Hives Verified 08/09/21 07:30 cyclobenzaprine Allergy Rash/Hives Verified 08/09/21 07:30 [From Flexeril] diphenhydramine Allergy Anaphylaxis Verified 08/09/21 07:30 [From Benadryl] hydromorphone [From Dilaudid] Allergy Rash/Hives Verified 08/09/21 07:30 hydroxyzine Allergy Anaphylaxis Verified 08/09/21 07:30 Iodinated Contrast Media Allergy Anaphylaxis Verified 08/09/21 07:30 [Iodinated Contrast- Oral and IV Dye] latex Allergy Rash/Hives Verified 08/09/21 07:30 pantoprazole [From Protonix] Allergy Anaphylaxis Verified 08/09/21 07:30 Penicillins Allergy Rash/Hives Verified 08/09/21 07:30 potassium chloride Allergy Rash/Hives Verified 08/09/21 07:30 pregabalin [From Lyrica] Allergy Anaphylaxis Verified 08/09/21 07:30 sevelamer Allergy Rash/Hives Verified 08/09/21 07:30 warfarin [From Coumadin] Allergy Anaphylaxis Verified 08/09/21 07:30 acetaminophen [From Vicodin] AdvReac Nausea & Verified 08/09/21 07:30 Vomiting aripiprazole [From Abilify] AdvReac Abdominal Verified 08/09/21 07:30 Pain aztreonam AdvReac Unknown Verified 08/09/21 07:30 calcitriol AdvReac Unknown Verified 08/09/21 07:30 cefadroxil AdvReac Unknown Verified 08/09/21 07:30 enalapril AdvReac Unknown Verified 08/09/21 07:30 hydrocodone [From Vicodin] AdvReac Nausea & Verified 08/09/21 07:30 Vomiting Influenza Virus Vaccines AdvReac Unknown Verified 08/09/21 07:30 levofloxacin [From Levaquin] AdvReac Abdominal Verified 08/09/21 07:30 Pain meloxicam [From Mobic] AdvReac Abdominal Verified 08/09/21 07:30 Pain morphine AdvReac Unknown Verified 08/09/21 07:30 propoxyphene AdvReac Unknown Verified 08/09/21 07:30 Sulfa (Sulfonamide AdvReac Vomiting Verified 08/09/21 07:30 Antibiotics) tramadol AdvReac Unknown Verified 08/09/21 07:30 Review of Systems ROS Statement: Those systems with pertinent positive or pertinent negative responses have been documented in the HPI. ROS Other: All systems not noted in ROS Statement are negative. Past Medical History Past Medical History: Atrial Fibrillation, GERD/Reflux, Renal Disease, Thyroid Disorder Additional Past Medical History / Comment(s): dialysis M/W/T//FRI, diverticulitis , blind, shingles in February History of Any Multi-Drug Resistant Organisms: None Reported Additional Past Surgical History / Comment(s): fistula placement , thyroidectomy Past Anesthesia/Blood Transfusion Reactions: Previous Problems w/ Anesthesia Additional Past Anesthesia/Blood Transfusion Reaction / Comment(s): Pt has his surgery done with local anesthetics d/t general anesthesia causing facial edema and difficulty waking. Past Psychological History: No Psychological Hx Reported Smoking Status: Never smoker Past Alcohol Use History: None Reported Past Drug Use History: None Reported - Past Family History Mother Family Medical History: Fibromyalgia, Osteoarthritis (OA) Additional Family Medical History / Comment(s): Lupus Family Family Medical History: No Reported History Additional Family Medical History / Comment(s): ETOH abuse General Exam Limitations: no limitations General appearance: alert, in no apparent distress Head exam: Present: atraumatic, normocephalic, normal inspection Eye exam: Present: normal appearance, PERRL, EOMI. Absent: scleral icterus, conjunctival injection, periorbital swelling ENT exam: Present: normal exam, mucous membranes moist Neck exam: Present: normal inspection. Absent: tenderness, meningismus, lymphadenopathy Respiratory exam: Present: normal lung sounds bilaterally. Absent: respiratory distress, wheezes, rales, rhonchi, stridor Cardiovascular Exam: Present: regular rate, normal rhythm, normal heart sounds. Absent: systolic murmur, diastolic murmur, rubs, gallop, clicks GI/Abdominal exam: Present: soft, normal bowel sounds, other (permacath right groin). Absent: distended, tenderness, guarding, rebound, rigid Extremities exam: Present: normal inspection, full ROM, normal capillary refill. Absent: tenderness, pedal edema, joint swelling, calf tenderness Back exam: Present: normal inspection Neurological exam: Present: alert, oriented X3, CN II-XII intact Psychiatric exam: Present: normal affect, normal mood Skin exam: Present: warm, dry, intact, normal color. Absent: rash Course Vital Signs 08/09/21 07:26 Temperature 97.6 F Pulse Rate 82 Respiratory 16 Rate Blood Pressure 116/70 O2 Sat by Pulse 99 Oximetry Medical Decision Making - Medical Decision Making Upon arrival patient is placed into room 22. History and physical exam was performed. I did instill 2 mL of Cathflow in both catheters. Patient is instructed to hold off on his dialysis for 4 hours. Follow-up with Dr. Salazar on the outpatient setting return for any new or worsening symptoms. Patient was discharged home in stable condition Disposition Clinical Impression: Hemodialysis catheter dysfunction Disposition: HOME SELF-CARE Condition: Stable Instructions (If sedation given, give patient instructions): Hemodialysis (DC) Additional Instructions: Do not do your dialysis for 4 hours. Follow up with Madelaine agarwal. Return for any new or worsening symptoms. Is patient prescribed a controlled substance at d/c from ED?: No Referrals: None,Stated [Primary Care Provider] - 1-2 days Scottie Agarwal DO [Doctor of Osteopathic Medicine] - 1-2 days Time of Disposition: 09:00
== END 2021-08-09 09:17 | disposition home or self-care (01) ==
LOC: EC 07:24
DX: T82.49XA Other complication of vascular dialysis catheter, initial encounter (principal); I48.91 Unspecified atrial fibrillation; K21.9 Gastro-esophageal reflux disease without esophagitis; E07.9 Disorder of thyroid, unspecified; Z79.890 Hormone replacement therapy; Z79.82 Long term (current) use of aspirin; Z79.01 Long term (current) use of anticoagulants; Z79.899 Other long term (current) drug therapy
CPT/HCPCS: 99283; 96374; J2997

== ENCOUNTER 2022-01-10 13:55 | Inpatient (IN) | payer MEDICARE, OTHER ==
[2022-01-10 14:55] LABS: Basophils % (A) 1 %; Eosinophils # (A) 0.1 k/uL (0-0.7); Eosinophils % (A) 1 %; HCT 41.2 % (39.0-53.0); HGB 13.7 gm/dL (13.0-17.5); Lymphocytes # (A) 1.1 k/uL (1.0-4.8); Lymphocytes % (A) 13 %; MCH 33.9 pg (25.0-35.0); MCHC 33.4 g/dL (31.0-37.0); MCV 101.6 fL (80.0-100.0); Macrocytosis Slight; Mean Platelet Volume 7.4; Monocytes # (A) 0.6 k/uL (0-1.0); Monocytes % (A) 6 %; Neutrophils # (A) 7.1 k/uL (1.3-7.7); Neutrophils % (A) 79 %; Platelet Count 183 k/uL (150-450); RBC 4.05 m/uL (4.30-5.90); RDW 13.9 % (11.5-15.5)
[2022-01-10 15:14] LABS: INR 0.9 (<1.2); Prothrombin Time 10.3 sec (9.0-12.0)
[2022-01-10 15:17] LABS: Albumin 4.6 g/dL (3.5-5.0); Calcium 10.8 mg/dL (8.4-10.2); Magnesium 2.7 mg/dL (1.6-2.3); Potassium 4.2 mmol/L (3.5-5.1); Total Bilirubin 0.5 mg/dL (0.2-1.3); Total Protein 6.9 g/dL (6.3-8.2)
[2022-01-10 15:19] LABS: Partial Thromboplastin Time 79.6 sec (22.0-30.0)
--- NOTE | 2022-01-10 15:22 | XR ---
EXAMINATION TYPE: XR chest 1V portable DATE OF EXAM: 01/10/2022 3:19 PM COMPARISON: Chest radiographs from 05/15/2021. TECHNIQUE: XR chest 1V portable Frontal view of the chest. CLINICAL INDICATION:Male, 51 years old with history of syncope; FINDINGS: Lungs/Pleura: There is no evidence of pleural effusion, focal consolidation, or pneumothorax. Bibasi lar atelectasis. Pulmonary vascularity: Unremarkable. Heart/mediastinum: Cardiomediastinal silhouette is enlarged and stable. Musculoskeletal: No acute osseous pathology. IMPRESSION: Bibasilar atelectasis without evidence for acute cardiopulmonary process.
[2022-01-10] MEDS ORDERED: SODIUM CHLORIDE 0.9% 500 ML 500 ML IV ONE (16:25)
--- NOTE | 2022-01-10 16:40 | ED ---
General Adult HPI - General Chief complaint: Syncope Stated complaint: Seizure Time Seen by Provider: 01/10/22 14:22 Source: patient Mode of arrival: wheelchair Limitations: no limitations - History of Present Illness Initial comments: This is a patient who is here to be evaluated after having 2 generalized tonic- clonic seizures. Patient's mother gives history as well as the patient does not recall the episodes. They were performing his home dialysis today and near the end and session, the patient's mother noted that his blood pressure was a touch low. As he was finishing the session he had a tonic clonic seizure which lasted a couple of minutes. He then reportedly appeared to be postictal for about 5 minutes. The patient then came around and patient's mother was observing him to ensure that he was feeling better. Approximately one hour after the first episode he did have another generalized tonic-clonic seizure and she had brought here for evaluation. She does note that his blood pressure seemed to be low following the dialysis running in the 60s. Onset/Timin -: hour(s) Severity scale (1-10): 0 Improves with: none Worsens with: none Associated Symptoms: weakness Treatments Prior to Arrival: none - Related Data Home Medications Medication Instructions Recorded Confirmed ALPRAZolam [Xanax] 0.5 mg PO DAILY 12/18/17 01/10/22 Levothyroxine Sodium [Synthroid] 50 mcg PO DAILY 12/18/17 01/10/22 Montelukast [Singulair] 10 mg PO DAILY 12/18/17 01/10/22 allopurinoL [Zyloprim] 100 mg PO DAILY 12/18/17 01/10/22 predniSONE 10 mg PO DAILY 04/25/21 01/10/22 Aspirin EC [Ecotrin Low Dose] 324 mg PO DAILY 05/03/21 01/10/22 Velphoro 500mg Chewable Tablet 1,000 mg PO TID-W/MEALS 01/10/22 01/10/22 Previous Rx's Medication Instructions Recorded Lacosamide [Vimpat] 50 mg PO TID #90 tab 01/12/22 Midodrine [ProAmatine] 5 mg PO AC-TID #90 tab 01/12/22 Allergies Allergy/AdvReac Type Severity Reaction Status Date / Time adhesive tape Allergy Itching Verified 01/10/22 23:18 codeine Allergy Rash/Hives Verified 01/10/22 16:47 cyclobenzaprine Allergy Rash/Hives Verified 01/10/22 16:47 [From Flexeril] diphenhydramine Allergy Anaphylaxis Verified 01/10/22 16:47 [From Benadryl] hydromorphone [From Dilaudid] Allergy Rash/Hives Verified 01/10/22 16:47 hydroxyzine Allergy Anaphylaxis Verified 01/10/22 16:47 Iodinated Contrast Media Allergy Anaphylaxis Verified 01/10/22 16:47 [Iodinated Contrast- Oral and IV Dye] pantoprazole [From Protonix] Allergy Anaphylaxis Verified 01/10/22 16:47 Penicillins Allergy Rash/Hives Verified 01/10/22 16:47 potassium chloride Allergy Rash/Hives Verified 01/10/22 16:47 pregabalin [From Lyrica] Allergy Anaphylaxis Verified 01/10/22 16:47 sevelamer Allergy Rash/Hives Verified 01/10/22 16:47 warfarin [From Coumadin] Allergy Anaphylaxis Verified 01/10/22 16:47 acetaminophen [From Vicodin] AdvReac Nausea & Verified 01/10/22 16:47 Vomiting aripiprazole [From Abilify] AdvReac Abdominal Verified 01/10/22 16:47 Pain aztreonam AdvReac Unknown Verified 01/10/22 16:47 calcitriol AdvReac Unknown Verified 01/10/22 16:47 cefadroxil AdvReac Unknown Verified 01/10/22 16:47 enalapril AdvReac Unknown Verified 01/10/22 16:47 hydrocodone [From Vicodin] AdvReac Nausea & Verified 01/10/22 16:47 Vomiting Influenza Virus Vaccines AdvReac Unknown Verified 01/10/22 16:47 levofloxacin [From Levaquin] AdvReac Abdominal Verified 01/10/22 16:47 Pain meloxicam [From Mobic] AdvReac Abdominal Verified 01/10/22 16:47 Pain morphine AdvReac Unknown Verified 01/10/22 16:47 propoxyphene AdvReac Unknown Verified 01/10/22 16:47 Sulfa (Sulfonamide AdvReac Vomiting Verified 01/10/22 16:47 Antibiotics) tramadol AdvReac Unknown Verified 01/10/22 16:47 Review of Systems ROS Statement: Those systems with pertinent positive or pertinent negative responses have been documented in the HPI. ROS Other: All systems not noted in ROS Statement are negative. Constitutional: Denies: fever, chills Eyes: Denies: vision change Respiratory: Denies: cough, dyspnea Cardiovascular: Reports: syncope. Denies: chest pain, palpitations, orthopnea, edema Gastrointestinal: Denies: abdominal pain, vomiting, diarrhea Genitourinary: Denies: dysuria, hematuria Musculoskeletal: Denies: back pain Skin: Denies: rash Neurological: Denies: headache, weakness, numbness, paresthesias, confusion Past Medical History Past Medical History: Atrial Fibrillation, Dialysis, GERD/Reflux, Renal Disease, Thyroid Disorder Additional Past Medical History / Comment(s): dialysis M/W/T//FRI, diverticulitis , blind, shingles in February History of Any Multi-Drug Resistant Organisms: None Reported Additional Past Surgical History / Comment(s): fistula placement , thyroidectomy Past Anesthesia/Blood Transfusion Reactions: Previous Problems w/ Anesthesia Additional Past Anesthesia/Blood Transfusion Reaction / Comment(s): Pt has his surgery done with local anesthetics d/t general anesthesia causing facial edema and difficulty waking. Past Psychological History: No Psychological Hx Reported Smoking Status: Never smoker Past Alcohol Use History: None Reported Past Drug Use History: None Reported - Past Family History Mother Family Medical History: Fibromyalgia, Osteoarthritis (OA) Additional Family Medical History / Comment(s): Lupus Family Family Medical History: No Reported History Additional Family Medical History / Comment(s): ETOH abuse General Exam Limitations: no limitations General appearance: alert, in no apparent distress Head exam: Present: atraumatic, normocephalic Eye exam: Present: normal appearance. Absent: scleral icterus, conjunctival injection ENT exam: Present: mucous membranes dry Neck exam: Present: normal inspection Respiratory exam: Present: normal lung sounds bilaterally. Absent: respiratory distress, wheezes, rales, rhonchi, stridor Cardiovascular Exam: Present: regular rate, normal rhythm, normal heart sounds. Absent: systolic murmur, diastolic murmur, rubs, gallop GI/Abdominal exam: Present: soft. Absent: distended, tenderness, guarding, rebound, rigid, mass Extremities exam: Present: normal inspection, normal capillary refill, other (There is a temporary dialysis catheter at the right groin which is normal in appearance. No erythema or drainage. No tenderness). Absent: pedal edema, calf tenderness Back exam: Present: normal inspection Neurological exam: Present: alert, oriented X3, CN II-XII intact. Absent: motor sensory deficit Skin exam: Present: warm, dry, intact, normal color. Absent: rash Course Vital Signs 01/10/22 01/10/22 01/10/22 14:10 14:27 15:20 Temperature 98 F Pulse Rate 99 96 Pulse Rate [ Pulse Oximetery ] Respiratory 20 18 Rate Blood Pressure 63/47 76/50 111/42 Blood Pressure [Right Arm] O2 Sat by Pulse 99 97 Oximetry 01/10/22 01/10/22 01/10/22 16:24 18:47 19:26 Temperature 97.9 F Pulse Rate 100 92 Pulse Rate [ 88 Pulse Oximetery ] Respiratory 18 18 20 Rate Blood Pressure 74/62 86/59 Blood Pressure 83/56 [Right Arm] O2 Sat by Pulse 100 98 100 Oximetry 01/10/22 01/10/22 19:34 20:00 Temperature 97.9 F Pulse Rate 90 Pulse Rate [ 88 Pulse Oximetery ] Respiratory 16 Rate Blood Pressure 115/97 Blood Pressure 83/56 [Right Arm] O2 Sat by Pulse 100 97 Oximetry Medical Decision Making - Medical Decision Making Patient is 51-year-old man who has had 2 suspected seizures prior to arrival here. Suspect this is related to hypotension. His blood pressures were low during and after dialysis at home. Here he has had hypotension. Suspect that the patient may have depleted intravascular volume, but differential also includes sepsis and other causes. Patient did have response to small fluid bolus. We will only give partial fluid bolus due to concerns about fluid overload secondary to his renal condition.. Antibiotics. Patient be admitted for further evaluation and treatment. - Lab Data Result diagrams: 01/10/22 14:46 01/11/22 04:58 Lab Results 01/10/22 01/10/22 01/10/22 Range/Units 14:46 14:46 14:46 WBC 9.0 (3.8-10.6) k/uL RBC 4.05 L (4.30-5.90) m/uL Hgb 13.7 (13.0-17.5) gm/dL Hct 41.2 (39.0-53.0) % MCV 101.6 H (80.0-100.0) fL MCH 33.9 (25.0-35.0) pg MCHC 33.4 (31.0-37.0) g/dL RDW 13.9 (11.5-15.5) % Plt Count 183 (150-450) k/uL MPV 7.4 Neutrophils % 79 % Lymphocytes % 13 % Monocytes % 6 % Eosinophils % 1 % Basophils % 1 % Neutrophils # 7.1 (1.3-7.7) k/uL Lymphocytes # 1.1 (1.0-4.8) k/uL Monocytes # 0.6 (0-1.0) k/uL Eosinophils # 0.1 (0-0.7) k/uL Basophils # 0.0 (0-0.2) k/uL Macrocytosis Slight PT 10.3 (9.0-12.0) sec INR 0.9 (<1.2) APTT 79.6 H (22.0-30.0) sec Sodium 134 L (137-145) mmol/L Potassium 4.2 (3.5-5.1) mmol/L Chloride 93 L (98-107) mmol/L Carbon Dioxide 21 L (22-30) mmol/L Anion Gap 20 mmol/L BUN 36 H (9-20) mg/dL Creatinine 6.01 H (0.66-1.25) mg/dL Est GFR (CKD-EPI)AfAm 12 (>60 ml/min/1.73 sqM) Est GFR (CKD-EPI)NonAf 10 (>60 ml/min/1.73 sqM) Glucose 158 H (74-99) mg/dL Lactic Ac Sepsis Rflx Plasma Lactic Acid Cristobal (0.7-2.0) mmol/L Calcium 10.8 H (8.4-10.2) mg/dL Magnesium 2.7 H (1.6-2.3) mg/dL Total Bilirubin 0.5 (0.2-1.3) mg/dL AST 30 (17-59) U/L ALT 27 (4-49) U/L Alkaline Phosphatase 96 (38-126) U/L Troponin I (0.000-0.034) ng/mL NT-Pro-B Natriuret Pep pg/mL Total Protein 6.9 (6.3-8.2) g/dL Albumin 4.6 (3.5-5.0) g/dL Coronavirus (PCR) (Not Detectd) 01/10/22 01/10/22 01/10/22 Range/Units 14:46 14:46 14:51 WBC (3.8-10.6) k/uL RBC (4.30-5.90) m/uL Hgb (13.0-17.5) gm/dL Hct (39.0-53.0) % MCV (80.0-100.0) fL MCH (25.0-35.0) pg MCHC (31.0-37.0) g/dL RDW (11.5-15.5) % Plt Count (150-450) k/uL MPV Neutrophils % % Lymphocytes % % Monocytes % % Eosinophils % % Basophils % % Neutrophils # (1.3-7.7) k/uL Lymphocytes # (1.0-4.8) k/uL Monocytes # (0-1.0) k/uL Eosinophils # (0-0.7) k/uL Basophils # (0-0.2) k/uL Macrocytosis PT (9.0-12.0) sec INR (<1.2) APTT (22.0-30.0) sec Sodium (137-145) mmol/L Potassium (3.5-5.1) mmol/L Chloride (98-107) mmol/L Carbon Dioxide (22-30) mmol/L Anion Gap mmol/L BUN (9-20) mg/dL Creatinine (0.66-1.25) mg/dL Est GFR (CKD-EPI)AfAm (>60 ml/min/1.73 sqM) Est GFR (CKD-EPI)NonAf (>60 ml/min/1.73 sqM) Glucose (74-99) mg/dL Lactic Ac Sepsis Rflx Plasma Lactic Acid Cristobal 2.7 H* (0.7-2.0) mmol/L Calcium (8.4-10.2) mg/dL Magnesium (1.6-2.3) mg/dL Total Bilirubin (0.2-1.3) mg/dL AST (17-59) U/L ALT (4-49) U/L Alkaline Phosphatase (38-126) U/L Troponin I 0.060 H* (0.000-0.034) ng/mL NT-Pro-B Natriuret Pep 1960 pg/mL Total Protein (6.3-8.2) g/dL Albumin (3.5-5.0) g/dL Coronavirus (PCR) (Not Detectd) 01/10/22 01/10/22 01/10/22 Range/Units 15:15 17:05 18:00 WBC (3.8-10.6) k/uL RBC (4.30-5.90) m/uL Hgb (13.0-17.5) gm/dL Hct (39.0-53.0) % MCV (80.0-100.0) fL MCH (25.0-35.0) pg MCHC (31.0-37.0) g/dL RDW (11.5-15.5) % Plt Count (150-450) k/uL MPV Neutrophils % % Lymphocytes % % Monocytes % % Eosinophils % % Basophils % % Neutrophils # (1.3-7.7) k/uL Lymphocytes # (1.0-4.8) k/uL Monocytes # (0-1.0) k/uL Eosinophils # (0-0.7) k/uL Basophils # (0-0.2) k/uL Macrocytosis PT (9.0-12.0) sec INR (<1.2) APTT (22.0-30.0) sec Sodium (137-145) mmol/L Potassium (3.5-5.1) mmol/L Chloride (98-107) mmol/L Carbon Dioxide (22-30) mmol/L Anion Gap mmol/L BUN (9-20) mg/dL Creatinine (0.66-1.25) mg/dL Est GFR (CKD-EPI)AfAm (>60 ml/min/1.73 sqM) Est GFR (CKD-EPI)NonAf (>60 ml/min/1.73 sqM) Glucose (74-99) mg/dL Lactic Ac Sepsis Rflx Y Plasma Lactic Acid Cristobal 1.4 (0.7-2.0) mmol/L Calcium (8.4-10.2) mg/dL Magnesium (1.6-2.3) mg/dL Total Bilirubin (0.2-1.3) mg/dL AST (17-59) U/L ALT (4-49) U/L Alkaline Phosphatase (38-126) U/L Troponin I (0.000-0.034) ng/mL NT-Pro-B Natriuret Pep pg/mL Total Protein (6.3-8.2) g/dL Albumin (3.5-5.0) g/dL Coronavirus (PCR) Not Detected (Not Detectd) Critical Care Time Critical Care Time: Yes (30 minutes) Disposition Clinical Impression: ESRD on dialysis, Hypotension, Seizure Disposition: HOME SELF-CARE Condition: Good Is patient prescribed a controlled substance at d/c from ED?: No
[2022-01-10] MEDS ORDERED: LACOSAMIDE IV 100 MG in SODIUM CHLORIDE 0.9% 50 ML IVPB STA (17:13)
[2022-01-10] MEDS ORDERED: NALOXONE 0.4 MG/ML 1 ML VIAL IV PRN (18:29)
--- NOTE | 2022-01-10 18:29 | CT ---
EXAMINATION TYPE: CT brain wo con DATE OF EXAM: 01/10/2022 HISTORY: seizure CT DLP: 1102.4 mGycm. Automated Exposure Control for Dose Reduction was Utilized. TECHNIQUE: CT scan of the head is performed without contrast. COMPARISON: None. FINDINGS: There is no acute intracranial hemorrhage or midline shift identified. There is no definite attenuation defect. Extra-axial compartment unremarkable. Mastoid sinus air cells and middle ear cavities and paranasal sinuses are clear. Orbits are unremarkable. Calvarium is intact. IMPRESSION: No acute process.
[2022-01-10] MEDS: ACETAMINOPHEN TAB 325 MG TAB PO PRN (21:01)
--- NOTE | 2022-01-10 23:19 | P.HPIM ---
History of Present Illness H&P Date: 01/10/22 The patient is a 51-year-old male with a PMH of ESRD on hemodialysis (at home), paroxysmal A. fib (not on anticoagulation), gout, and hypothyroidism who presents to the emergency room after episodes of suspected seizures. The patient reports that he was at home undergoing his regular dialysis session when near the end of the session, the patient's mother who normally performs the dialysis noted that his blood pressure was on the lower side (70-80 systolic blood pressure). The patient subsequently completed the session and was then noted by his mother to have developed shaking movements involving his arms and legs and became unresponsive. The patient subsequently regained consciousness although was postictal for roughly 5 minutes. The patient does not recall the episode and states that the last thing he remembers was feeling somewhat off near the end of the session. The patient subsequently had another episode of similar seizure-like activity an hour after. The patient's mother subsequently decided to bring him to the emergency room. The patient reports feeling at his baseline at the time of interview. He denied experiencing recent chest discomfort, shortness of breath, nausea, vomiting, diaphoresis. Also denied fever, chills, cough, abdominal pain, diarrhea. He denies any prior history of seizures and denies ever losing consciousness in the past. CT brain in the emergency room was unremarkable. EKG reveals sinus rhythm with right axis deviation and 91 bpm. Laboratory evaluation was remarkable for S of 2.7, troponin 0.060, proBNP 1960, and creatinine 6.01. Review of systems: Pertinent positives and negatives as discussed in HPI, a complete review of systems was performed and all other systems are negative. Physical examination: General: non toxic, no distress, appears older than at stated age, overweight Derm: no unusual rashes/lesions, warm Head: atraumatic, normocephalic, symmetric Eyes: EOMI, no lid lag, anicteric sclera, pupils equal round reactive to light ENT: Nose and ears atraumatic Neck: No cervical lymphadenopathy, trachea midline, supple Mouth: no lip lesion, mucus membranes moist Cardiovascular: S1S2 reg, no murmur, positive dorsalis pedis pulse bilateral, no edema Lungs: CTA bilateral, no rhonchi, no rales, no accessory muscle use Abdominal: soft, nontender to palpation, no guarding Ext: muscle strength 5 out of 5 in all 4 extremities grossly, no gross muscle atrophy, no contractures, right groin dialysis catheter in place Neuro: CN II-XI grossly intact, no gross focal neuro deficits Psych: Alert, oriented, appropriate affect Assessment/plan Suspected seizure, new onset -Status post 100 mg of Vimpat in the emergency room -Neurology consulted -Seizure and fall precautions Lactic acidosis -Resolved Elevated troponin -Suspect secondary to seizure-like activity -Patient denied chest discomfort or shortness of breath -Trend for now -Cardiac monitoring Chronic conditions: ESRD, paroxysmal A. fib, hypothyroidism, gout -Continue with home meds DVT prophylaxis -Heparin subcu The patient is admitted with an anticipated greater than 2 midnight stay for evaluation of seizure. CODE STATUS: Full Code Discussed with: Patient Anticipated discharge date: 2-[address]: Home Past Medical History Past Medical History: Atrial Fibrillation, Dialysis, GERD/Reflux, Renal Disease, Thyroid Disorder Additional Past Medical History / Comment(s): dialysis M/W/T//FRI, diverticulitis , blind, shingles in February History of Any Multi-Drug Resistant Organisms: None Reported Additional Past Surgical History / Comment(s): fistula placement , thyroidectomy Past Anesthesia/Blood Transfusion Reactions: Previous Problems w/ Anesthesia Additional Past Anesthesia/Blood Transfusion Reaction / Comment(s): Pt has his surgery done with local anesthetics d/t general anesthesia causing facial edema and difficulty waking. Past Psychological History: No Psychological Hx Reported Smoking Status: Never smoker Past Alcohol Use History: None Reported Past Drug Use History: None Reported - Past Family History Mother Family Medical History: Fibromyalgia, Osteoarthritis (OA) Additional Family Medical History / Comment(s): Lupus Family Family Medical History: Hypertension Additional Family Medical History / Comment(s): ETOH abuse Medications and Allergies Home Medications Medication Instructions Recorded Confirmed Type ALPRAZolam [Xanax] 0.5 mg PO DAILY 12/18/17 01/10/22 History Levothyroxine Sodium [Synthroid] 50 mcg PO DAILY 12/18/17 01/10/22 History Montelukast [Singulair] 10 mg PO DAILY 12/18/17 01/10/22 History allopurinoL [Zyloprim] 100 mg PO DAILY 12/18/17 01/10/22 History predniSONE 10 mg PO DAILY 04/25/21 01/10/22 History Aspirin EC [Ecotrin Low Dose] 324 mg PO DAILY 05/03/21 01/10/22 History Velphoro 500mg Chewable Tablet 1,000 mg PO TID-W/MEALS 01/10/22 01/10/22 History Allergies Allergy/AdvReac Type Severity Reaction Status Date / Time adhesive tape Allergy Itching Verified 01/10/22 23:18 codeine Allergy Rash/Hives Verified 01/10/22 16:47 cyclobenzaprine Allergy Rash/Hives Verified 01/10/22 16:47 [From Flexeril] diphenhydramine Allergy Anaphylaxis Verified 01/10/22 16:47 [From Benadryl] hydromorphone [From Dilaudid] Allergy Rash/Hives Verified 01/10/22 16:47 hydroxyzine Allergy Anaphylaxis Verified 01/10/22 16:47 Iodinated Contrast Media Allergy Anaphylaxis Verified 01/10/22 16:47 [Iodinated Contrast- Oral and IV Dye] pantoprazole [From Protonix] Allergy Anaphylaxis Verified 01/10/22 16:47 Penicillins Allergy Rash/Hives Verified 01/10/22 16:47 potassium chloride Allergy Rash/Hives Verified 01/10/22 16:47 pregabalin [From Lyrica] Allergy Anaphylaxis Verified 01/10/22 16:47 sevelamer Allergy Rash/Hives Verified 01/10/22 16:47 warfarin [From Coumadin] Allergy Anaphylaxis Verified 01/10/22 16:47 acetaminophen [From Vicodin] AdvReac Nausea & Verified 01/10/22 16:47 Vomiting aripiprazole [From Abilify] AdvReac Abdominal Verified 01/10/22 16:47 Pain aztreonam AdvReac Unknown Verified 01/10/22 16:47 calcitriol AdvReac Unknown Verified 01/10/22 16:47 cefadroxil AdvReac Unknown Verified 01/10/22 16:47 enalapril AdvReac Unknown Verified 01/10/22 16:47 hydrocodone [From Vicodin] AdvReac Nausea & Verified 01/10/22 16:47 Vomiting Influenza Virus Vaccines AdvReac Unknown Verified 01/10/22 16:47 levofloxacin [From Levaquin] AdvReac Abdominal Verified 01/10/22 16:47 Pain meloxicam [From Mobic] AdvReac Abdominal Verified 01/10/22 16:47 Pain morphine AdvReac Unknown Verified 01/10/22 16:47 propoxyphene AdvReac Unknown Verified 01/10/22 16:47 Sulfa (Sulfonamide AdvReac Vomiting Verified 01/10/22 16:47 Antibiotics) tramadol AdvReac Unknown Verified 01/10/22 16:47 Physical Exam Vitals: Vital Signs Temp Pulse Pulse Resp BP BP Pulse Ox 01/10/22 19:34 90 16 115/97 100 01/10/22 19:26 97.9 F 88 20 83/56 100 01/10/22 18:47 92 18 86/59 98 01/10/22 16:24 100 18 74/62 100 01/10/22 15:20 111/42 01/10/22 14:27 96 18 76/50 97 01/10/22 14:10 98 F 99 20 63/47 99 Intake and Output 01/10/22 01/10/22 01/11/22 14:59 22:59 06:59 Other: Weight 81.647 kg 81.647 kg Results CBC & Chem 7: 01/10/22 14:46 01/10/22 14:46 Labs: Abnormal Lab Results - Last 24 Hours (Table) 01/10/22 01/10/22 01/10/22 Range/Units 14:46 14:46 14:46 RBC 4.05 L (4.30-5.90) m/uL MCV 101.6 H (80.0-100.0) fL APTT 79.6 H (22.0-30.0) sec Sodium 134 L (137-145) mmol/L Chloride 93 L (98-107) mmol/L Carbon Dioxide 21 L (22-30) mmol/L BUN 36 H (9-20) mg/dL Creatinine 6.01 H (0.66-1.25) mg/dL Glucose 158 H (74-99) mg/dL Plasma Lactic Acid Cristobal (0.7-2.0) mmol/L Calcium 10.8 H (8.4-10.2) mg/dL Magnesium 2.7 H (1.6-2.3) mg/dL Troponin I (0.000-0.034) ng/mL 01/10/22 01/10/22 01/10/22 Range/Units 14:46 14:51 20:51 RBC (4.30-5.90) m/uL MCV (80.0-100.0) fL APTT (22.0-30.0) sec Sodium (137-145) mmol/L Chloride (98-107) mmol/L Carbon Dioxide (22-30) mmol/L BUN (9-20) mg/dL Creatinine (0.66-1.25) mg/dL Glucose (74-99) mg/dL Plasma Lactic Acid Cristobal 2.7 H* (0.7-2.0) mmol/L Calcium (8.4-10.2) mg/dL Magnesium (1.6-2.3) mg/dL Troponin I 0.060 H* 0.091 H* (0.000-0.034) ng/mL
[2022-01-11] MEDS ORDERED: ASPIRIN 81 MG PO STA (00:38)
[2022-01-11] MEDS: HEPARIN SODIUM,PORCINE/PF 5,000 UNIT/0.5 ML SYRINGE SQ SCH ×4 (00:49→23:29)
[2022-01-11] MEDS: ACETAMINOPHEN TAB 325 MG TAB PO PRN ×3 (04:02→20:56)
[2022-01-11] MEDS ORDERED: SODIUM CHLORIDE 0.9% 500 ML 500 ML IV ONE (04:04)
[2022-01-11] MEDS ORDERED: SODIUM CHLORIDE 0.9% 250 ML IV ONE (04:15)
[2022-01-11 05:21] LABS: Albumin 3.9 g/dL (3.5-5.0); Calcium 9.1 mg/dL (8.4-10.2); Magnesium 2.4 mg/dL (1.6-2.3); Potassium 4.6 mmol/L (3.5-5.1); Total Bilirubin 0.4 mg/dL (0.2-1.3); Total Protein 5.8 g/dL (6.3-8.2)
[2022-01-11] MEDS: SODIUM CHLORIDE 0.9% 250 ML IV SCH ×6 (06:57→09:08)
[2022-01-11] MEDS: VELPHORO PO SCH ×3 (06:57→16:13)
[2022-01-11] MEDS: LEVOTHYROXINE 50 MCG TAB PO SCH (06:58)
[2022-01-11] MEDS: MIDODRINE 5 MG TAB PO SCH ×3 (06:58→17:49)
[2022-01-11] MEDS ORDERED: MONTELUKAST 10 MG TAB PO SCH ×2 (09:00→21:00)
[2022-01-11] MEDS ORDERED: ALPRAZolam 0.5 MG TAB PO SCH ×2 (09:00→21:00)
[2022-01-11] MEDS ORDERED: ASPIRIN 81 MG PO SCH (09:00)
[2022-01-11] MEDS: allopurinoL 100 MG TAB PO SCH (09:04)
[2022-01-11] MEDS: predniSONE 10 MG TAB PO SCH (09:04)
--- NOTE | 2022-01-11 10:12 | P.CNNES ---
History of Present Illness Consult date: 01/11/22 Requesting physician: Christiano Renee Reason for Consult: seizure History of Present Illness: This is a 51-year-old gentleman with history of end-stage renal disease on dialysis, atrial fibrillation on ASA, legally blind over both eyes thryroidectomy who presented emergency department because seizure-like activity. Some the history is obtained from medical record. Patient stated that he was getting dialysis yesterday at home and towards the end his blood pressure was running low as low as 60's in systolic. Then he had numbness of both hands then he started having seizure-like activity but does not remember the episodes seems that he had to the generalized tonic-clonic seizure per ED note. The episode lasted for couple minutes and then he was post ictal for 5 minutes and that was the first episode. Then about one hour later he had his second seizure of generalized tonic-clonic. He stated that he bit the the side of both tongue. He denies any bowel incontinence. These episodes were witnessed by his mother. He denies any history of seizures in the past. Patient stated that the last couple weeks his blood pressure runs low. But again he denies any seizure-like activity in the past. As a result of his seizure-like activity patient was brought to the hospital. Per the ED physician possibly the patient had a brief episode at while he is in the ED of seizure-like activity and his blood pressure was low at that time and was about 30 seconds before sure less than a minute. Yesterday the ED team contact me via phone because his seizure-like activity per the primary team's request and I notified them to start the patient on local so my 100 mg once bolus and after [id number]. Currently the patient feels drastically better no further episodes. Some other workup during this hospital visit On initial presentation his systolic blood pressure was 63 diastolic was 47 heart rate was 99 respiratory of 20 the temperature was 98.0 Fahrenheit and the pulse ox is 99% room air. Patient has been afebrile during his hospital visit. Initial serum glucose is 158. Sodium is 134, creatinine is 6.01 and BUN is 36. Calcium is 10.7 magnesium is 2.7. Initial plasma left acid the pain is 2. 7 repeat is 1.4. Coronavirus patient was not detected. CT of the head is reported as no acute process. I personally reviewed the CT of the head and there is no acute subacute ischemic stroke. EKG is reported as sinus rhythm. Possible left at atrial enlargement. Borderline right axial deviation. Borderline EKG. Review of Systems Review of system: The 12 point system was reviewed and apparent positive and negative per HPI. Past Medical History Past Medical History: Atrial Fibrillation, Dialysis, GERD/Reflux, Renal Disease, Thyroid Disorder Additional Past Medical History / Comment(s): dialysis M/W/T/TH/SAT, diverticulitis , blind, shingles in February History of Any Multi-Drug Resistant Organisms: None Reported Additional Past Surgical History / Comment(s): fistula placement , thyroidectomy Past Anesthesia/Blood Transfusion Reactions: Previous Problems w/ Anesthesia Additional Past Anesthesia/Blood Transfusion Reaction / Comment(s): Pt has his surgery done with local anesthetics d/t general anesthesia causing facial edema and difficulty waking. Past Psychological History: No Psychological Hx Reported Smoking Status: Never smoker Past Alcohol Use History: None Reported Past Drug Use History: None Reported - Past Family History Mother Family Medical History: Fibromyalgia, Osteoarthritis (OA) Additional Family Medical History / Comment(s): Lupus Family Family Medical History: Hypertension Additional Family Medical History / Comment(s): ETOH abuse Medications and Allergies Home Medications Medication Instructions Recorded Confirmed Type ALPRAZolam [Xanax] 0.5 mg PO DAILY 12/18/17 01/10/22 History Levothyroxine Sodium [Synthroid] 50 mcg PO DAILY 12/18/17 01/10/22 History Montelukast [Singulair] 10 mg PO DAILY 12/18/17 01/10/22 History allopurinoL [Zyloprim] 100 mg PO DAILY 12/18/17 01/10/22 History predniSONE 10 mg PO DAILY 04/25/21 01/10/22 History Aspirin EC [Ecotrin Low Dose] 324 mg PO DAILY 05/03/21 01/10/22 History Velphoro 500mg Chewable Tablet 1,000 mg PO TID-W/MEALS 01/10/22 01/10/22 History Allergies Allergy/AdvReac Type Severity Reaction Status Date / Time adhesive tape Allergy Itching Verified 01/10/22 23:18 codeine Allergy Rash/Hives Verified 01/10/22 16:47 cyclobenzaprine Allergy Rash/Hives Verified 01/10/22 16:47 [From Flexeril] diphenhydramine Allergy Anaphylaxis Verified 01/10/22 16:47 [From Benadryl] hydromorphone [From Dilaudid] Allergy Rash/Hives Verified 01/10/22 16:47 hydroxyzine Allergy Anaphylaxis Verified 01/10/22 16:47 Iodinated Contrast Media Allergy Anaphylaxis Verified 01/10/22 16:47 [Iodinated Contrast- Oral and IV Dye] pantoprazole [From Protonix] Allergy Anaphylaxis Verified 01/10/22 16:47 Penicillins Allergy Rash/Hives Verified 01/10/22 16:47 potassium chloride Allergy Rash/Hives Verified 01/10/22 16:47 pregabalin [From Lyrica] Allergy Anaphylaxis Verified 01/10/22 16:47 sevelamer Allergy Rash/Hives Verified 01/10/22 16:47 warfarin [From Coumadin] Allergy Anaphylaxis Verified 01/10/22 16:47 acetaminophen [From Vicodin] AdvReac Nausea & Verified 01/10/22 16:47 Vomiting aripiprazole [From Abilify] AdvReac Abdominal Verified 01/10/22 16:47 Pain aztreonam AdvReac Unknown Verified 01/10/22 16:47 calcitriol AdvReac Unknown Verified 01/10/22 16:47 cefadroxil AdvReac Unknown Verified 01/10/22 16:47 enalapril AdvReac Unknown Verified 01/10/22 16:47 hydrocodone [From Vicodin] AdvReac Nausea & Verified 01/10/22 16:47 Vomiting Influenza Virus Vaccines AdvReac Unknown Verified 01/10/22 16:47 levofloxacin [From Levaquin] AdvReac Abdominal Verified 01/10/22 16:47 Pain meloxicam [From Mobic] AdvReac Abdominal Verified 01/10/22 16:47 Pain morphine AdvReac Unknown Verified 01/10/22 16:47 propoxyphene AdvReac Unknown Verified 01/10/22 16:47 Sulfa (Sulfonamide AdvReac Vomiting Verified 01/10/22 16:47 Antibiotics) tramadol AdvReac Unknown Verified 01/10/22 16:47 Physical Examination - Vital Signs Vital Signs: Vital Signs Temp Pulse Pulse Resp BP BP Pulse Ox 01/11/22 03:19 98.4 F 90 95 01/11/22 00:00 97.9 F 96 89/58 98 01/10/22 20:00 97.9 F 88 83/56 97 01/10/22 19:34 90 16 115/97 100 01/10/22 19:26 97.9 F 88 20 83/56 100 01/10/22 18:47 92 18 86/59 98 01/10/22 16:24 100 18 74/62 100 01/10/22 15:20 111/42 01/10/22 14:27 96 18 76/50 97 01/10/22 14:10 98 F 99 20 63/47 99 Intake and Output 01/10/22 01/11/22 01/11/22 22:59 06:59 14:59 Intake Total 118 Balance 118 Intake: Oral 118 Other: # Bowel Movements 1 Weight 81.647 kg GENERAL: The patient is lying in bed and is not in acute distress. CHEST: The heart rate is regular rate rhythm. No murmurs to auscultation. LUNG: Clear to auscultation bilaterally no wheezing noted throughout. Not labored breathing. ABDOMEN/GI: Bowel sounds present in all 4 quadrants. No tenderness to palpation throughout. NEUROLOGICAL: Higher mental function: The patient is awake, alert, oriented to self, place and time. Patient is following commands. No aphasia and no neglect. Cranial nerves: The pupils are round, right pupils is 4mm and left is 2mm (per patient old), and reactive to light. Patient is legally blind of both eyes. EOM is limited but has ?some limitation looking far left bilaterally with some nystagmus (stated old). Facial sensation is normal to touch throughout. The facial strength is normal throughout. Hearing is normal bilaterally to hand rub. Tongue is midline and moved [id number] without any difficulty. Has tongue bite over the posterior lateral tongues (left > right). No dysarthria is noted. Shoulder shrug is normal bilaterally. Motor: The strength is 5 over 5 throughout. Has some atrophy of bilateral first dorsal interosseous. Normal tone bulk. Cerebellum: Normal finger to nose bilaterally. Sensation: Sensation is normal to touch throughout. Reflexes (right/left): 1+ throughout. Plantars are downgoing bilaterally. Results - Laboratory Findings CBC and BMP: 01/10/22 14:46 01/11/22 04:58 Abnormal Lab Findings: Abnormal Labs 01/10/22 01/10/22 01/10/22 14:46 14:46 14:46 RBC 4.05 L MCV 101.6 H APTT 79.6 H Sodium 134 L Chloride 93 L Carbon Dioxide 21 L BUN 36 H Creatinine 6.01 H Glucose 158 H Plasma Lactic Acid Cristobal Calcium 10.8 H Magnesium 2.7 H Troponin I Total Protein 01/10/22 01/10/22 01/10/22 14:46 14:51 20:51 RBC MCV APTT Sodium Chloride Carbon Dioxide BUN Creatinine Glucose Plasma Lactic Acid Cristobal 2.7 H* Calcium Magnesium Troponin I 0.060 H* 0.091 H* Total Protein 01/11/22 01/11/22 00:35 04:58 RBC MCV APTT Sodium 135 L Chloride 95 L Carbon Dioxide BUN 48 H Creatinine 7.88 H* Glucose Plasma Lactic Acid Cristobal Calcium Magnesium 2.4 H Troponin I 0.093 H* Total Protein 5.8 L Assessment and Plan Assessment: New onset seizure (had reported 2 seizure-like activity at home with tongue bite at home and a third episode while in ED that was brief). ?provoked due to hypotension but cannot rule out truly epieptic in nature Hypotension likely related to dialysis. Rule out underlying sepsis (so far afebrile) End-stage renal disease on dialysis History of trial fibrillation on ASA Legally blind over both eyes Thryroidectomy Plan: Because of patient 3 seizure activity I placed him on antiepileptic drug (lacosimide 50mg 1 tab bid). Ordered routine EEG because of his seizures to rule out any underlying discharges or seizure on the EEG. Ordered MRI Brain w/o for his seizure On seizure precaution and pad. Nephrology is consulted. Will defer the rest of medical management to the primary team. Patient is legally blind and does not drive and does not swim unassisted, uses heavy machinery. Upon discharge, the patient to follow-up with neurologist as outpatient within 1-2 weeks. Thank you for the consultation. UPDATE: Routine EEG (preliminary report): Showed rare epileptiform discharges. No seizure detected. Continue Lacosamide 50mg 1 tab bid. Will get 2.5 hour ambulatory EEG as outpatient (to be coordinated by chemistry technical officer) and patient to follow-up with neurologist as outpatient. Time with Patient: Greater than 30
--- NOTE | 2022-01-11 10:58 | P.NPCON ---
History of Present Illness - Reason for Consult end stage renal disease - History of Present Illness Reason for consultation: End-stage renal disease History of present illness: Patient is a 51-year-old male seen in consultation for end-stage renal disease. He is maintained on home hemodialysis via femoral catheter. Patient presented to the hospital due to seizures. Patient states during the end of his dialysis treatment yesterday he had a seizure episode which lasted about 5 minutes. Treatment was subsequently stopped. About an hour later he had another seizure. He was advised to go to the hospital. Currently he is awake and alert. Mentation is at baseline. Patient's blood pressure has been on the lower side and he has been receiving fluid boluses. He is not on any antihypertensives o utpatient. Denies chest pain or shortness of breath. No lower extremity edema. No vomiting or diarrhea. Denies prior history of seizures. Vital signs are stable. Blood pressure in the lower side. General: Awake. No acute distress. HEENT: Head exam is unremarkable. LUNGS: Breath sounds decreased. HEART: Rate and Rhythm are regular. ABDOMEN: Soft, obese. No tenderness. EXTREMITITES: No edema. Past Medical History Past Medical History: Atrial Fibrillation, Dialysis, GERD/Reflux, Renal Disease, Thyroid Disorder Additional Past Medical History / Comment(s): dialysis M/W/T//FRI, diverticulitis , blind, shingles in February History of Any Multi-Drug Resistant Organisms: None Reported Additional Past Surgical History / Comment(s): fistula placement , thyroidectomy Past Anesthesia/Blood Transfusion Reactions: Previous Problems w/ Anesthesia Additional Past Anesthesia/Blood Transfusion Reaction / Comment(s): Pt has his surgery done with local anesthetics d/t general anesthesia causing facial edema and difficulty waking. Past Psychological History: No Psychological Hx Reported Smoking Status: Never smoker Past Alcohol Use History: None Reported Past Drug Use History: None Reported - Past Family History Mother Family Medical History: Fibromyalgia, Osteoarthritis (OA) Additional Family Medical History / Comment(s): Lupus Family Family Medical History: Hypertension Additional Family Medical History / Comment(s): ETOH abuse Medications and Allergies Home Medications Medication Instructions Recorded Confirmed Type ALPRAZolam [Xanax] 0.5 mg PO DAILY 12/18/17 01/10/22 History Levothyroxine Sodium [Synthroid] 50 mcg PO DAILY 12/18/17 01/10/22 History Montelukast [Singulair] 10 mg PO DAILY 12/18/17 01/10/22 History allopurinoL [Zyloprim] 100 mg PO DAILY 12/18/17 01/10/22 History predniSONE 10 mg PO DAILY 04/25/21 01/10/22 History Aspirin EC [Ecotrin Low Dose] 324 mg PO DAILY 05/03/21 01/10/22 History Velphoro 500mg Chewable Tablet 1,000 mg PO TID-W/MEALS 01/10/22 01/10/22 History Allergies Allergy/AdvReac Type Severity Reaction Status Date / Time adhesive tape Allergy Itching Verified 01/10/22 23:18 codeine Allergy Rash/Hives Verified 01/10/22 16:47 cyclobenzaprine Allergy Rash/Hives Verified 01/10/22 16:47 [From Flexeril] diphenhydramine Allergy Anaphylaxis Verified 01/10/22 16:47 [From Benadryl] hydromorphone [From Dilaudid] Allergy Rash/Hives Verified 01/10/22 16:47 hydroxyzine Allergy Anaphylaxis Verified 01/10/22 16:47 Iodinated Contrast Media Allergy Anaphylaxis Verified 01/10/22 16:47 [Iodinated Contrast- Oral and IV Dye] pantoprazole [From Protonix] Allergy Anaphylaxis Verified 01/10/22 16:47 Penicillins Allergy Rash/Hives Verified 01/10/22 16:47 potassium chloride Allergy Rash/Hives Verified 01/10/22 16:47 pregabalin [From Lyrica] Allergy Anaphylaxis Verified 01/10/22 16:47 sevelamer Allergy Rash/Hives Verified 01/10/22 16:47 warfarin [From Coumadin] Allergy Anaphylaxis Verified 01/10/22 16:47 acetaminophen [From Vicodin] AdvReac Nausea & Verified 01/10/22 16:47 Vomiting aripiprazole [From Abilify] AdvReac Abdominal Verified 01/10/22 16:47 Pain aztreonam AdvReac Unknown Verified 01/10/22 16:47 calcitriol AdvReac Unknown Verified 01/10/22 16:47 cefadroxil AdvReac Unknown Verified 01/10/22 16:47 enalapril AdvReac Unknown Verified 01/10/22 16:47 hydrocodone [From Vicodin] AdvReac Nausea & Verified 01/10/22 16:47 Vomiting Influenza Virus Vaccines AdvReac Unknown Verified 01/10/22 16:47 levofloxacin [From Levaquin] AdvReac Abdominal Verified 01/10/22 16:47 Pain meloxicam [From Mobic] AdvReac Abdominal Verified 01/10/22 16:47 Pain morphine AdvReac Unknown Verified 01/10/22 16:47 propoxyphene AdvReac Unknown Verified 01/10/22 16:47 Sulfa (Sulfonamide AdvReac Vomiting Verified 01/10/22 16:47 Antibiotics) tramadol AdvReac Unknown Verified 01/10/22 16:47 Physical Exam Vitals: Vital Signs Temp Pulse Pulse Resp BP BP Pulse Ox 01/11/22 03:19 98.4 F 90 95 01/11/22 00:00 97.9 F 96 89/58 98 01/10/22 20:00 97.9 F 88 83/56 97 01/10/22 19:34 90 16 115/97 100 01/10/22 19:26 97.9 F 88 20 83/56 100 01/10/22 18:47 92 18 86/59 98 01/10/22 16:24 100 18 74/62 100 01/10/22 15:20 111/42 01/10/22 14:27 96 18 76/50 97 01/10/22 14:10 98 F 99 20 63/47 99 Intake and Output 01/10/22 01/11/22 01/11/22 22:59 06:59 14:59 Intake Total 118 Balance 118 Intake: Oral 118 Other: # Bowel Movements 1 Weight 81.647 kg Results - Lab Results Most recent lab results Calcium 9.1 mg/dL (8.4-10.2) 01/11/22 04:58 Magnesium 2.4 mg/dL (1.6-2.3) H 01/11/22 04:58 01/10/22 14:46 01/11/22 04:58 Assessment and Plan Plan: Assessment: 1. End-stage renal disease maintained on his home hemodialysis via femoral catheter. 2. Seizures. Neurology consulted. 3. Hypotension. Rule out adrenal insufficiency. 4. Hypercalcemia secondary to calcitriol. Today the calcium is normal. 5. History of failed kidney transplant. Off immunosuppressive meds except prednisone. Plan: Hemodialysis tomorrow. No UF tomorrow. Add midodrine. Hold for systolic blood pressure greater than 110. Check a.m. cortisol level. Resume velphoro with meals. Thank you for the consultation. I will continue to follow the patient with you during his hospital stay.
[2022-01-11] MEDS: LACOSAMIDE 50 MG TABLET PO SCH ×2 (13:07→20:56)
--- NOTE | 2022-01-11 14:07 | P.PN ---
Subjective Progress Note Date: 01/11/22 (Delayed charting seen at 1120) The patient is a 51-year-old male with ESRD on home hemodialysis 4 times weekly, paroxysmal A. fib (not on anticoagulation), gout, and hypothyroidism who presents to the emergency room after episodes of suspected seizures. The patient subsequently had another episode of similar seizure-like activity an hour after and then again in the ER. CT brain in the emergency room was unremarkable. EKG reveals sinus rhythm with right axis deviation and 91 bpm. Laboratory evaluation was remarkable for S of 2.7, troponin 0.060, proBNP 1960, and creatinine 6.01. Patient was hypotensive in the ER requiring fluid resuscitation. Neurology was contacted and patient was started on Vimpat. He was admitted for further monitoring. Patient seen and examined at bedside. He reports some overall body aches after his seizures which are unusual for him. He denies any lightheadedness, dizziness, nausea, vomiting, diarrhea, chest pain, shortness of breath. General: nontoxic, no distress, appears at stated age Derm: warm, dry Head: atraumatic, normocephalic, symmetric, trach in place Eyes: EOMI, left-sided eyelid droop (typical per patient) Mouth: no lip lesion, mucus membranes moist Cardiovascular: S1S2 reg, no murmur, positive posterior tibial pulse bilateral, Lungs: CTA bilateral, no rhonchi, no rales , no accessory muscle use Abdominal: soft, nontender to palpation, no guarding, no appreciable organomegaly Ext: no gross muscle atrophy, no edema, no contractures Neuro: CN II-XI grossly intact, no focal neuro deficits Psych: Alert, oriented, appropriate affect Assessment/plan: New onset seizure -Seizure precautions -Neurology recommendations: Started on Vimpat -Await EEG and MRI brain End-stage renal disease on hemodialysis -Nephrology recommendations -Plan is for hemodialysis today Persistent hypotension -No signs of sepsis -We'll check echocardiogram -Started on Midodrin Paroxysmal atrial fibrillation not on anticoagulation -Not on any rate controlling medications. Rate appears controlled. He takes aspirin daily. -Follow heart rate. Lactic acidosis, resolved likely secondary to seizure activity Elevated troponin, flat and likely due to combination of the seizure and end- stage renal disease Chronic: Hypothyroidism Gout DVT prophylaxis: Heparin Discussed with: patient, nursing Anticipated discharge: in AM Anticipated discharge place: home A total of 30 minutes was spent on the care of this complex patient more than 50% of the time was spent in counseling and care coordination. Active Medications Generic Name Dose Route Start Last Admin Trade Name Winifred PRN Reason Stop Dose Admin Acetaminophen 650 mg 01/10/22 18:29 01/11/22 09:15 Acetaminophen Tab 325 Mg Tab PO 650 mg Q6HR PRN Administration Mild Pain or Fever > 100.5 Allopurinol 100 mg 01/11/22 09:00 01/11/22 09:04 Allopurinol 100 Mg Tab PO 100 mg DAILY BASIL Administration Alprazolam 0.5 mg 01/11/22 21:00 Alprazolam 0.5 Mg Tab PO DAILY@2100 [facility] Heparin Sodium (Porcine) 5,000 unit 01/11/22 00:00 01/11/22 09:04 Heparin Sodium,Porcine/Pf 5,000 Unit/0.5 Ml Syringe SQ Not Given Q8HR BASIL Lacosamide 50 mg 01/11/22 10:00 01/11/22 13:07 Lacosamide 50 Mg Tablet PO 50 mg BID BASIL Administration Levothyroxine Sodium 50 mcg 01/11/22 06:30 01/11/22 06:58 Levothyroxine 50 Mcg Tab PO 50 mcg 0630 BASIL Administration Midodrine 5 mg 01/11/22 07:30 01/11/22 13:07 Midodrine 5 Mg Tab PO 5 mg AC-TID BASIL Administration Montelukast Sodium 10 mg 01/11/22 21:00 Montelukast 10 Mg Tab PO DAILY@2100 [facility] Naloxone HCl 0.2 mg 01/10/22 18:29 Naloxone 0.4 Mg/Ml 1 Ml Vial IV Q2M PRN Opioid Reversal Patient's Own ( 1,000 mg 01/11/22 07:30 01/11/22 13:07 Velphoro 500mg PO Not Given Chewable Tablet 1, TID-W/MEALS BASIL 000 Mg) Prednisone 10 mg 01/11/22 09:00 01/11/22 09:04 Prednisone 10 Mg Tab PO 10 mg DAILY BASIL Administration Objective - Vital Signs Vital signs: Vital Signs Temp 97.6 F 01/11/22 08:00 Pulse 81 01/11/22 08:00 Resp 16 01/11/22 08:00 BP 75/41 01/11/22 08:00 Pulse Ox 98 01/11/22 08:00 FiO2 Intake & Output 01/10/22 01/11/22 01/11/22 18:59 06:59 18:59 Intake Total 238 Balance 238 Weight 81.647 kg 81.647 kg Intake: Oral 238 Other: # Bowel Movements 1 - Labs CBC & Chem 7: 01/10/22 14:46 01/11/22 04:58 Labs: Abnormal Lab Results - Last 24 Hours (Table) 01/10/22 01/10/22 01/10/22 Range/Units 14:46 14:46 14:46 RBC 4.05 L (4.30-5.90) m/uL MCV 101.6 H (80.0-100.0) fL APTT 79.6 H (22.0-30.0) sec Sodium 134 L (137-145) mmol/L Chloride 93 L (98-107) mmol/L Carbon Dioxide 21 L (22-30) mmol/L BUN 36 H (9-20) mg/dL Creatinine 6.01 H (0.66-1.25) mg/dL Glucose 158 H (74-99) mg/dL Plasma Lactic Acid Cristobal (0.7-2.0) mmol/L Calcium 10.8 H (8.4-10.2) mg/dL Magnesium 2.7 H (1.6-2.3) mg/dL Troponin I (0.000-0.034) ng/mL Total Protein (6.3-8.2) g/dL 01/10/22 01/10/22 01/10/22 Range/Units 14:46 14:51 20:51 RBC (4.30-5.90) m/uL MCV (80.0-100.0) fL APTT (22.0-30.0) sec Sodium (137-145) mmol/L Chloride (98-107) mmol/L Carbon Dioxide (22-30) mmol/L BUN (9-20) mg/dL Creatinine (0.66-1.25) mg/dL Glucose (74-99) mg/dL Plasma Lactic Acid Cristobal 2.7 H* (0.7-2.0) mmol/L Calcium (8.4-10.2) mg/dL Magnesium (1.6-2.3) mg/dL Troponin I 0.060 H* 0.091 H* (0.000-0.034) ng/mL Total Protein (6.3-8.2) g/dL 01/11/22 01/11/22 Range/Units 00:35 04:58 RBC (4.30-5.90) m/uL MCV (80.0-100.0) fL APTT (22.0-30.0) sec Sodium 135 L (137-145) mmol/L Chloride 95 L (98-107) mmol/L Carbon Dioxide (22-30) mmol/L BUN 48 H (9-20) mg/dL Creatinine 7.88 H* (0.66-1.25) mg/dL Glucose (74-99) mg/dL Plasma Lactic Acid Cristobal (0.7-2.0) mmol/L Calcium (8.4-10.2) mg/dL Magnesium 2.4 H (1.6-2.3) mg/dL Troponin I 0.093 H* (0.000-0.034) ng/mL Total Protein 5.8 L (6.3-8.2) g/dL
--- NOTE | 2022-01-11 18:46 | MR ---
EXAMINATION TYPE: MR brain wo con DATE OF EXAM: 01/11/2022 COMPARISON: None HISTORY: seizure. Multiplanar multiecho imaging of the brain performed without contrast. Ventricles have normal size. There is no mass effect or midline shift. No sign of intracranial hemorr maggie. Diffusion images show no sign of an acute infarct. There is some patchy increased signal in the periventricular white matter on the T2 and FLAIR images. Margins are indistinct. There are discrete small foci of increased signal on the FLAIR images at the jacobson-white matter junction posterior verteb ral hemispheres that measure up to 3 mm. Portal numbers proximally 20. The brainstem is intact. Corpu s callosum is intact. No evidence of a sellar mass. No evidence of orbital mass. IMPRESSION: White matter periventricular signal changes are mild and are more noticeable around the occipital hor ns of the lateral ventricles. This could relate to microvascular ischemia or demyelinating disease. N o evidence of cortical infarct. The tiny more peripheral white matter high signal foci are likely rel ated to microvascular ischemia.
[2022-01-12 01:14] VITALS: RESP 17
--- NOTE | 2022-01-12 01:34 | EEG ---
ELECTROENCEPHALOGRAM REPORT CLINICAL HISTORY: This is a 51-year-old gentleman who presented because of witness of 2 generalized tonic clonic seizure activity at home. The video EEG is obtained to evaluate for seizure epileptiform activity. RELEVANT MEDICATION: Lacosamide. EEG TYPE: A routine 21-channel EEG is performed with video using the 10/20 electrode placement system. DESCRIPTION: Wakefulness is obtained. During awake state, the background consists of 9 hertz activity that is well modulated, well sustained. There was no physiological stage 2 sleep architecture. There is no focal slowing. Interictal and ictal, there is rare sharp and slow waves and it appears possibly originating from the right temporal. There is no seizure noted during this study. ACTIVATION PROCEDURE: Photic stimulation did not evoke a posterior driving response. There is no abnormality during the photic stimulation. Hyperventilation is not performed. CLINICAL INTERPRETATION: This is an abnormal routine EEG. The rare epileptiform discharges as noted above increases risk for focal seizures as well as status epilepticus. Otherwise, the background is normal and there is no seizure or focal slowing seen during the study. Clinical correlation is recommended. RECOMMENDATIONS: I highly recommend a prolonged ambulatory EEG (2.5 hours). MMODL / IJN: [id number] / MTDD
[2022-01-12] MEDS: LEVOTHYROXINE 50 MCG TAB PO SCH (06:34)
[2022-01-12] MEDS: MIDODRINE 5 MG TAB PO SCH ×2 (06:34→12:34)
[2022-01-12] MEDS: VELPHORO PO SCH ×2 (06:34→12:35)
[2022-01-12] MEDS: HEPARIN SODIUM,PORCINE/PF 5,000 UNIT/0.5 ML SYRINGE SQ SCH (09:33)
[2022-01-12] MEDS: allopurinoL 100 MG TAB PO SCH (09:34)
[2022-01-12] MEDS: LACOSAMIDE 50 MG TABLET PO SCH (09:34)
[2022-01-12] MEDS: predniSONE 10 MG TAB PO SCH (09:34)
--- NOTE | 2022-01-12 09:53 | CA ---
Transthoracic Echo Report Name: Morgan Clark Age: 51 Gender: M : 1970 Exam Date: 01/11/2022 14:46 Exam Location: [facility] Ht (in): 69 Wt (lb): 180 Ordering Physician: Lynette Spring DO Attending/Referring Phys: [id number], Clementine Maintenance Worker Graciela Walker RDCS Procedure CPT: Indications: chf Cardiac Hx: Technical Quality: Good Contrast 1: Total Dose (mL): Contrast 2: Total Dose (mL): MEASUREMENTS (Male / Female) Normal Values 2D ECHO LV Diastolic Diameter PLAX 5.0 cm 4.2 - 5.9 / 3.9 - 5.3 cm LV Systolic Diameter PLAX 3.2 cm IVS Diastolic Thickness 1.2 cm 0.6 - 1.0 / 0.6 - 0.9 cm LVPW Diastolic Thickness 1.3 cm 0.6 - 1.0 / 0.6 - 0.9 cm LV Relative Wall Thickness 0.5 RV Internal Dim ED PLAX 3.4 cm LVOT Diameter 2.1 cm LA Systolic Diameter LX 3.8 cm 3.0 - 4.0 / 2.7 - 3.8 cm LA Volume 50.6 cm??? 18 - 58 / 22 - 52 cm??? M-MODE Aortic Root Diameter MM 3.4 cm MV E Point Septal Separation 0.5 cm AV Cusp Separation MM 0.8 cm DOPPLER AV Peak Velocity 324.8 cm/s AV Peak Gradient 42.2 mmHg AV Mean Velocity 203.7 cm/s AV Mean Gradient 21.1 mmHg AV Velocity Time Integral 56.0 cm LVOT Peak Velocity 120.9 cm/s LVOT Peak Gradient 5.8 mmHg AV Area Cont Eq pk 1.3 cm??? MV Area PHT 2.4 cm??? Mitral E Point Velocity 90.8 cm/s Mitral A Point Velocity 81.8 cm/s Mitral E to A Ratio 1.1 MV Deceleration Time 312.4 ms TR Peak Velocity 221.5 cm/s TR Peak Gradient 19.6 mmHg Right Ventricular Systolic Press 24.6 mmHg FINDINGS Left Ventricle Left ventricular ejection fraction is estimated at 55-60 %. Left ventricular cavity size normal. Mild concentric left ventricular hypertrophy. Right Ventricle Mild right ventricular dilatation. Right ventricular systolic pressure within normal limits. Right Atrium Normal right atrial size. Left Atrium Normal left atrial size. No evidence for an atrial septal defect. Mitral Valve Mitral valve thickened. Mild mitral annular calcification. Mild mitral regurgitation. Aortic Valve Moderate Aortic valve sclerosis. Moderate aortic stenosis with a peak gradient of 42 mmHg and a mean gradient of 21 mmHg. Trace aortic regurgitation. Tricuspid Valve Mild tricuspid regurgitation. Pulmonic Valve Structurally normal pulmonic valve. Pericardium Normal pericardium. No pericardial effusion. Aorta Normal size aortic root and proximal ascending aorta. CONCLUSIONS Normal left ventricular dimension and systolic function Aortic sclerosis with moderate aortic stenosis and mean gradient of 21 mmHg Previewed by: Dr. Sidney Malik MD (Electronically Signed) Final Date: 12 January 2022 09:52
[2022-01-12] MEDS ORDERED: LACOSAMIDE 50 MG TABLET PO PRN (11:20)
--- NOTE | 2022-01-12 11:36 | P.PN ---
Subjective Progress Note Date: 01/12/22 The patient is seen at bedside and no further seizures. He feels back to baseline. Objective - Vital Signs Vital signs: Vital Signs Temp 98.0 F 01/12/22 08:00 Pulse 97 01/12/22 08:00 Resp 17 01/12/22 08:00 BP 109/73 01/12/22 08:00 Pulse Ox 98 01/12/22 08:00 FiO2 Intake & Output 01/11/22 01/12/22 01/12/22 18:59 06:59 18:59 Intake Total 598 360 Output Total 0 Balance 598 0 360 Weight 81.9 kg Intake: Oral 598 360 Output: Urine 0 Other: # Bowel Movements 1 - Exam GENERAL: The patient is lying in bed and is not in acute distress. NEUROLOGICAL: Higher mental function: The patient is awake, alert, oriented to self, place and time. Patient is following commands. No aphasia and no neglect. Cranial nerves: The pupils are round, right pupils is 4mm and left is 2mm (per patient old), and reactive to light. Patient is legally blind of both eyes. EOM is limited but has ?some limitation looking far left bilaterally with some nystagmus (stated old). Facial sensation is normal to touch throughout. The facial strength is normal throughout. Hearing is normal bilaterally to hand rub. Tongue is midline and moved [id number] without any difficulty. Has tongue bite over the posterior lateral tongues (left > right). No dysarthria is noted. Shoulder shrug is normal bilaterally. Motor: The strength is 5 over 5 throughout. Has some atrophy of bilateral first dorsal interosseous. Normal tone bulk. Cerebellum: Normal finger to nose bilaterally. Sensation: Sensation is normal to touch throughout. Reflexes (right/left): 1+ throughout. Plantars are downgoing bilaterally. Some other workup during this hospital visit On initial presentation his systolic blood pressure was 63 diastolic was 47 heart rate was 99 respiratory of 20 the temperature was 98.0 Fahrenheit and the pulse ox is 99% room air. Patient has been afebrile during his hospital visit. Initial serum glucose is 158. Sodium is 134, creatinine is 6.01 and BUN is 36. Calcium is 10.7 magnesium is 2.7. Initial plasma left acid the pain is 2. 7 repeat is 1.4. Coronavirus patient was not detected. CT of the head is reported as no acute process. I personally reviewed the CT of the head and there is no acute subacute ischemic stroke. Routine EEG on 01/11/2022 is abnormal. The rare epileptiform discharges as noted above (appears right temporal) increases risk for focal seizure as well as status epilepticus. Otherwise the background is normal and there is no seizure or focal slowing during the study. I highly recommend a prolonged ambulatory EEG. MRI of the brain is reported as white matter. Ventricle is signal changes are mild and are more noticeable around the occipital horn of the lateral v entricles. This could relate to microvascular ischemia or demyelinating disease. No evidence of cortical infarct. The tiny more peripheral white matter high signal foci are likely related to microvascular ischemia. I personally reviewed the MRI and there is no acute subacute ischemia and there is no mass effect. I feel his white matter changes is likely more microvascular. 2-D echo is reported as normal left ventricular dye mentioned solid function. Aortic process with moderate aortic stenosis and mean gradient of 21 mmHg. Normal left atrium and no evidence of for atrial septal defect. EKG is reported as sinus rhythm. Possible left at atrial enlargement. Borderline right axial deviation. Borderline EKG. - Labs CBC & Chem 7: 01/10/22 14:46 01/11/22 04:58 Labs: Microbiology - Last 24 Hours (Table) 01/10/22 15:50 Blood Culture - Preliminary Blood No Growth after 24 hours 01/10/22 15:30 Blood Culture - Preliminary Blood No Growth after 24 hours Assessment and Plan Assessment: New onset seizure (had reported 2 seizure-like activity at home with tongue bite at home and a third episode while in ED that was brief). Routine EEG revealed epileptiform discharges which can increase risk for seizures. Hypotension likely related to dialysis. Cannot rule out his hypotension as result of seizure. Patient afebrile. End-stage renal disease on dialysis History of trial fibrillation on ASA Legally blind over both eyes Thryroidectomy Plan: Because of patient 3 seizure activity I placed him on antiepileptic drug (lacosimide 50mg 1 tab bid). Then post-dialysis then receive an additional 50mg 1 tab. If he continues to seizure recommend to go up on Vimpat to 100mg 1 tab bid with continuation of 50mg post-dailysis. Ordered 2.5hour ambulatory EEG (coordinated by instructional technology facilitator). On seizure precaution and pad. Nephrology is consulted. Will defer the rest of medical management to the primary team. Patient is legally blind and does not drive and does not swim unassisted, uses heavy machinery. Upon discharge, the patient to follow-up with neurologist as outpatient within 1-2 weeks. He would like to follow-up with me. The plan is discussed with patient and his mother (via phone) as well his primary team. Patient is clear for discharge from neurological perspective. Time with Patient: Less than 30
[2022-01-12 12:23] VITALS: BP 102/66; PULSE 77; TEMP 97.4
--- NOTE | 2022-01-12 14:52 | P.DS ---
Providers Date of admission: 01/10/22 18:29 Expected date of discharge: 01/12/22 Attending physician: Gilda Sanches MD Consults: 01/10/22 17:17 Consult Physician Routine Consulting Provider: Naun Blil Consult Reason/Comments: seizure Do you want consulting provider notified?: Already Contacted 01/10/22 20:03 Consult Physician Routine Consulting Provider: Mychal Jerome Consult Reason/Comments: Dialysis patient Do you want consulting provider notified?: Yes Primary care physician: Stated None Hospital Course: Discharge Diagnosis: New onset seizure End-stage renal disease on hemodialysis Persistent hypotension- resolved with midodrine Paroxysmal atrial fibrillation not on anticoagulation Lactic acidosis, resolved likely secondary to seizure activity Elevated troponin, flat and likely due to combination of the seizure and end- stage renal disease Hypothyroidism Gout Hospital Course: The patient is a 51-year-old male with ESRD on home hemodialysis 4 times weekly, paroxysmal A. fib (not on anticoagulation), gout, and hypothyroidism who presents to the emergency room after episodes of suspected seizures. The patient subsequently had another episode of similar seizure-like activity an hour after and then again in the ER. CT brain in the emergency room was unremarkable. EKG reveals sinus rhythm with right axis deviation and 91 bpm. Laboratory evaluation was remarkable for S of 2.7, troponin 0.060, proBNP 1960, and creatinine 6.01. Patient was hypotensive in the ER requiring fluid resu scitation. Neurology was contacted and patient was started on Vimpat. He was admitted for further monitoring. EEG was abnormal showing rare epileptiform discharges,. His right temporal at risk for focal seizure as well as status epilepticus. MRI of the brain shows white matter changes likely related to microvascular ischemia or less likely demyelinating disease. Echocardiogram showed ejection fraction 55%, mild left ventricular hypertrophy, and moderate aortic stenosis. Patient remains seizure-free after initiation of Vimpat. He was determined stable for discharge home as his blood pressure remained stable after the addition of Midodrin. Follow-up: He'll follow-up with his primary care provider in 1-2 days. He will establish with Dr. Bill of neurology an outpatient basis. His schedule laboratory prolonged EEG on Friday. He will take Vimpat 50 mg twice daily every day and a third dose on the days he has dialysis after he has completed dialysis. He will continue on Midodrin. Patient seen and examined at bedside with mother present. They would like to be discharged today. He is doing well. No additional seizure activity. All questions are answered. Vital signs reviewed and stable. General: nontoxic, no distress, appears at stated age Derm: warm, dry Head: atraumatic, normocephalic, symmetric, trach in place Eyes: EOMI, left-sided eyelid droop (typical per patient) Mouth: no lip lesion, mucus membranes moist Cardiovascular: S1S2 reg, no murmur, positive posterior tibial pulse bilateral, Lungs: CTA bilateral, no rhonchi, no rales , no accessory muscle use Neuro: CN II-XI grossly intact, no focal neuro deficits Psych: Alert, oriented, appropriate affect A total of 33 minutes of time were spent preparing this complex discharge summary. Patient was discharged on 01/12/22. Patient Condition at Discharge: Good Plan - Discharge Summary Discharge Rx Participant: No New Discharge Prescriptions: New RX: Lacosamide [Vimpat] 50 mg PO TID #90 tab RX: Midodrine [ProAmatine] 5 mg PO AC-TID #90 tab Continue RX: Montelukast [Singulair] 10 mg PO DAILY RX: ALPRAZolam [Xanax] 0.5 mg PO DAILY RX: Levothyroxine Sodium [Synthroid] 50 mcg PO DAILY RX: allopurinoL [Zyloprim] 100 mg PO DAILY Velphoro 500mg Chewable Tablet 1,000 mg PO TID-W/MEALS RX: predniSONE 10 mg PO DAILY RX: Aspirin EC [Ecotrin Low Dose] 324 mg PO DAILY Discharge Medication List RX: ALPRAZolam [Xanax] 0.5 mg PO DAILY 12/18/17 [History] RX: Levothyroxine Sodium [Synthroid] 50 mcg PO DAILY 12/18/17 [History] RX: Montelukast [Singulair] 10 mg PO DAILY 12/18/17 [History] RX: allopurinoL [Zyloprim] 100 mg PO DAILY 12/18/17 [History] RX: predniSONE 10 mg PO DAILY 04/25/21 [History] RX: Aspirin EC [Ecotrin Low Dose] 324 mg PO DAILY 05/03/21 [History] Velphoro 500mg Chewable Tablet 1,000 mg PO TID-W/MEALS 01/10/22 [History] RX: Lacosamide [Vimpat] 50 mg PO TID #90 tab 01/12/22 [Rx] RX: Midodrine [ProAmatine] 5 mg PO AC-TID #90 tab 01/12/22 [Rx] Follow up Appointment(s)/Referral(s): None,Stated [Primary Care Provider] - 1-2 days Naun Bill MD [STAFF PHYSICIAN] - 1 Week (seizure [facility] [phone]) Patient Instructions/Handouts: Epilepsy (DC) Activity/Diet/Wound Care/Special Instructions: Activity: as tolerated Diet: renal Special Instructions: Vimpat take one table twice daily and one additional tablet after each dialysis session No driving, no unsupervised swimming, no ladders, no operating heavy machines until 6 months seizure free.
== END 2022-01-12 13:45 | disposition home or self-care (01) | DRG 100 ==
LOC: EC 13:55 → 3SCARD 18:29
PROVIDERS: ADMIT Family Medicine; ATTEND Family Medicine
DX: G40.409 Other generalized epilepsy and epileptic syndromes, not intractable, without status epilepticus (principal); N18.6 End stage renal disease; E87.20 Acidosis, unspecified; T86.12 Kidney transplant failure; I95.9 Hypotension, unspecified; Z93.0 Tracheostomy status; I48.0 Paroxysmal atrial fibrillation; Z99.2 Dependence on renal dialysis; Z20.822 Contact with and (suspected) exposure to COVID-19; Z28.310 Unvaccinated for COVID-19; K21.9 Gastro-esophageal reflux disease without esophagitis; E89.0 Postprocedural hypothyroidism; R77.8 Other specified abnormalities of plasma proteins; M10.9 Gout, unspecified; I35.0 Nonrheumatic aortic (valve) stenosis; E83.52 Hypercalcemia; H54.8 Legal blindness, as defined in USA; Z79.82 Long term (current) use of aspirin; Z79.890 Hormone replacement therapy; Z79.52 Long term (current) use of systemic steroids; Z79.899 Other long term (current) drug therapy; Z88.5 Allergy status to narcotic agent; Z88.0 Allergy status to penicillin; Z88.2 Allergy status to sulfonamides; Z88.7 Allergy status to serum and vaccine; Z88.8 Allergy status to other drugs, medicaments and biological substances; Z88.6 Allergy status to analgesic agent; Z88.1 Allergy status to other antibiotic agents; Z91.041 Radiographic dye allergy status; Z91.040 Latex allergy status; Y83.0 Surgical operation with transplant of whole organ as the cause of abnormal reaction of the patient, or of later complication, without mention of misadventure at the time of the procedure
CPT/HCPCS: 36415; 70450; 70551; 71045; 80053; 82533; 83605; 83735; 83880; 84484; 85025; 85610; 85730; 87040; 87635; 93005; 93306; 95816; 96365; 96367; 99291

== ENCOUNTER → 2022-01-18 | Outpatient (CLI) | payer MEDICARE, OTHER | LOC: NEUROMAIN 08:03 | PROVIDERS: ATTEND Student in an Organized Health Care Education/Training Program | DX: R56.9 Unspecified convulsions (principal); Z88.5 Allergy status to narcotic agent; Z91.048 Other nonmedicinal substance allergy status; Z88.0 Allergy status to penicillin; Z88.1 Allergy status to other antibiotic agents; Z88.8 Allergy status to other drugs, medicaments and biological substances; Z88.2 Allergy status to sulfonamides; Z88.6 Allergy status to analgesic agent; Z91.041 Radiographic dye allergy status | CPT/HCPCS: 95713 ==

== ENCOUNTER 2022-10-14 21:30 | Observation (INO) | payer MEDICARE, OTHER ==
[2022-10-14] MEDS ORDERED: NALOXONE 0.4 MG/ML 1 ML VIAL IV PRN (23:29)
[2022-10-14] MEDS ORDERED: SODIUM CHLORIDE 0.9% 1,000 ML IV STA (23:29)
--- NOTE | 2022-10-14 23:38 | ED ---
Recheck HPI - General Chief Complaint: Recheck/Abnormal Lab/Rx Stated Complaint: Hole in dialysis tube Time Seen by Provider: 10/14/22 22:47 Source: patient, RN notes reviewed, old records reviewed Mode of arrival: ambulatory Limitations: no limitations - History of Present Illness Initial Comments: This is a 52-year-old male to the emergency department today today. This patient presents today for evaluation. Patient is here for evaluation of signif icant catheter right groin. Patient is here for evaluation of significant catheter as it does appear to be broken. Patient has no complaints to go to dialysis today, no lightheadedness dizziness weakness chest pain shortness of breath. Patient refusing all testing lab testing and IV starts MD Complaint: wound re-check (Evaluation of significant catheter dialysis catheter) Symptoms Since Prior Visit: no new symptoms Associated Symptoms: none Treatments Prior to Arrival: other (0) - Related Data Home Medications Medication Instructions Recorded Confirmed Levothyroxine Sodium [Synthroid] 50 mcg PO DAILY 12/18/17 10/15/22 Montelukast [Singulair] 10 mg PO HS 12/18/17 10/15/22 predniSONE 10 mg PO DAILY 04/25/21 10/15/22 Atorvastatin [Lipitor] 20 mg PO DAILY 10/15/22 10/15/22 Midodrine HCl [ProAmatine] 10 mg PO QID 10/15/22 10/15/22 allopurinoL 100 mg PO DAILY 10/15/22 10/15/22 calcitrioL [Calcitriol] 0.25 mcg PO SUTUWETHSA 10/15/22 10/15/22 calcitrioL [Calcitriol] 0.5 mcg PO MOFR 10/15/22 10/15/22 Allergies Allergy/AdvReac Type Severity Reaction Status Date / Time adhesive tape Allergy Itching Verified 10/15/22 12:53 codeine Allergy Rash/Hives Verified 10/15/22 12:53 cyclobenzaprine Allergy Rash/Hives Verified 10/15/22 12:53 [From Flexeril] diphenhydramine Allergy Anaphylaxis Verified 10/15/22 12:53 [From Benadryl] hydromorphone [From Dilaudid] Allergy Rash/Hives Verified 10/15/22 12:53 hydroxyzine Allergy Anaphylaxis Verified 10/15/22 12:53 Iodinated Contrast Media Allergy Anaphylaxis Verified 10/15/22 12:53 [Iodinated Contrast- Oral and IV Dye] pantoprazole [From Protonix] Allergy Anaphylaxis Verified 10/15/22 12:53 Penicillins Allergy Rash/Hives Verified 10/15/22 12:53 potassium chloride Allergy Rash/Hives Verified 10/15/22 12:53 pregabalin [From Lyrica] Allergy Anaphylaxis Verified 10/15/22 12:53 sevelamer Allergy Rash/Hives Verified 10/15/22 12:53 warfarin [From Coumadin] Allergy Anaphylaxis Verified 10/15/22 12:53 acetaminophen [From Vicodin] AdvReac Nausea & Verified 10/15/22 12:53 Vomiting aripiprazole [From Abilify] AdvReac Abdominal Verified 10/15/22 12:53 Pain aztreonam AdvReac Unknown Verified 10/15/22 12:53 calcitriol AdvReac Unknown Verified 10/15/22 12:53 cefadroxil AdvReac Unknown Verified 10/15/22 12:53 enalapril AdvReac Unknown Verified 10/15/22 12:53 hydrocodone [From Vicodin] AdvReac Nausea & Verified 10/15/22 12:53 Vomiting Influenza Virus Vaccines AdvReac Unknown Verified 10/15/22 12:53 levofloxacin [From Levaquin] AdvReac Abdominal Verified 10/15/22 12:53 Pain meloxicam [From Mobic] AdvReac Abdominal Verified 10/15/22 12:53 Pain morphine AdvReac Unknown Verified 10/15/22 12:53 propoxyphene AdvReac Unknown Verified 10/15/22 12:53 Sulfa (Sulfonamide AdvReac Vomiting Verified 10/15/22 12:53 Antibiotics) tramadol AdvReac Unknown Verified 10/15/22 12:53 Review of Systems ROS Statement: Those systems with pertinent positive or pertinent negative responses have been documented in the HPI. ROS Other: All systems not noted in ROS Statement are negative. Past Medical History Past Medical History: Atrial Fibrillation, Dialysis, GERD/Reflux, Renal Disease, Thyroid Disorder Additional Past Medical History / Comment(s): dialysis M/W/T/TH/SAT, diverticulitis , blind, shingles in February History of Any Multi-Drug Resistant Organisms: None Reported Additional Past Surgical History / Comment(s): fistula placement , thyroidectomy Past Anesthesia/Blood Transfusion Reactions: Previous Problems w/ Anesthesia Additional Past Anesthesia/Blood Transfusion Reaction / Comment(s): Pt has his surgery done with local anesthetics d/t general anesthesia causing facial edema and difficulty waking. Past Psychological History: No Psychological Hx Reported Smoking Status: Never smoker Past Alcohol Use History: None Reported Past Drug Use History: None Reported - Past Family History Mother Family Medical History: Fibromyalgia, Osteoarthritis (OA) Additional Family Medical History / Comment(s): Lupus Family Family Medical History: No Reported History Additional Family Medical History / Comment(s): ETOH abuse General Exam Limitations: no limitations General appearance: alert, in no apparent distress Head exam: Present: atraumatic, normocephalic, normal inspection Eye exam: Present: normal appearance, PERRL, EOMI. Absent: scleral icterus, conjunctival injection, periorbital swelling ENT exam: Present: normal exam, mucous membranes moist Neck exam: Present: normal inspection. Absent: tenderness, meningismus, lymphadenopathy Respiratory exam: Present: normal lung sounds bilaterally. Absent: respiratory distress, wheezes, rales, rhonchi, stridor Cardiovascular Exam: Present: regular rate, normal rhythm, normal heart sounds. Absent: systolic murmur, diastolic murmur, rubs, gallop, clicks GI/Abdominal exam: Present: soft, normal bowel sounds. Absent: distended, tenderness, guarding, rebound, rigid Extremities exam: Present: normal inspection, full ROM, normal capillary refill. Absent: tenderness, pedal edema, joint swelling, calf tenderness Back exam: Present: normal inspection Neurological exam: Present: alert, oriented X3, CN II-XII intact Psychiatric exam: Present: normal affect, normal mood Skin exam: Present: warm, dry, intact, normal color. Absent: rash Course Vital Signs 10/14/22 10/15/22 10/15/22 21:42 00:50 06:00 Temperature 97.7 F Pulse Rate 96 57 L 66 Respiratory 16 18 18 Rate Blood Pressure 103/70 101/57 97/50 O2 Sat by Pulse 99 97 97 Oximetry 10/15/22 10/15/22 10/15/22 07:38 10:54 12:14 Temperature 96.9 F L Pulse Rate 65 65 60 Respiratory 18 18 18 Rate Blood Pressure 92/56 97/58 100/66 O2 Sat by Pulse 96 99 97 Oximetry - Reevaluation(s) Reevaluation #1: 10/14/22 23:37 Medical record is reviewed Reevaluation #2: 10/14/22 23:37 Patient is asymptomatic Reevaluation #3: 10/14/22 23:37 Patient informed results questions answered Reevaluation #4: 10/14/22 23:37 Was pt. sent in by a medical professional or institution (JOCY Waller, INCIDENT RESPONSE CONSULTANT, urgent care, hospital, or custodial...) When possible be specific @ -no Did you speak to anyone other than the patient for history (EMS, parent, family, police, friend...)? What history was obtained from this source @ -no Did you review nursing and triage notes (agree or disagree)? Why? @ -agree Are old charts reviewed (outside hosp., previous admission, EMS record, old EKG, old radiological studies, urgent care reports/EKG's, custodial records)? Report findings @ -yes Differential Diagnosis (chest pain, altered mental status, abdominal pain women, abdominal pain men, vaginal bleeding, weakness, fever, dyspnea, syncope, headache, dizziness, GI bleed, back pain, seizure, CVA, palpatations, mental health, musculoskeletal)? @ -prior EKG interpreted by me (3pts min.). @ -no X-rays interpreted by me (1pt min.). @ -no CT interpreted by me (1pt min.). @ -no U/S interpreted by me (1pt. min.). @ -no What testing was considered but not performed or refused? (CT, X-rays, U/S, labs)? Why? @ -none What meds were considered but not given or refused? Why? @ -none Did you discuss the management of the patient with other professionals (professionals i.e. JOCY Waller, INCIDENT RESPONSE CONSULTANT, lab, RT, psych nurse, criminal justice social worker, jewel hole finish opener, teacher, ethics officer, telehealth case manager)? Give summary @ -no Was smoking cessation discussed for >3mins.? @ -no Was critical care preformed (if so, how long)? @ -no Were there social determinants of health that impacted care today? How? (Homelessness, low income, unemployed, alcoholism, drug addiction, transportation, low edu. Level, literacy, decrease access to med. care, [place] [facility], rehab)? @ -none Was there de-escalation of care discussed even if they declined (Discuss DNR or withdrawal of care, Hospice)? DNR status @ -no What co-morbidities impacted this encounter? (DM, HTN, Smoking, COPD, CAD, Cancer, CVA, ARF, Chemo, Hep., AIDS, mental health diagnosis, sleep apnea, morbid obesity)? @ -none Was patient admitted / discharged? Hospital course, mention meds given and route, prescriptions, significant lab abnormalities, going to OR and other pertinent info. @ - 52 male to the emergency department for evaluation will be admitted for n eed to access for dialysis. Vascular surgery to see Admitted Undiagnosed new problem with uncertain prognosis? @ -no Drug Therapy requiring intensive monitoring for toxicity (Heparin, Nitro, Insulin, Cardizem)? @ -no Were any procedures done? @ -no Diagnosis/symptom? @ -Dialysis catheter malfunction Acute, or Chronic, or Acute on Chronic? @ -Acute Uncomplicated (without systemic symptoms) or Complicated (systemic symptoms)? @ -Complicated Side effects of treatment? @ -no Exacerbation, Progression, or Severe Exacerbation? @ -exacerbation Poses a threat to life or bodily function? How? (Chest pain, USA, MS, pneumonia, PE, COPD, DKA, ARF, appy, cholecystitis, CVA, Diverticulitis, Homicidal, Suicidal, threat to staff... and all critical care pts) @ -yes patient is dialysis patient and needs access - Consultations Consultation #1: spoke with Dr. Keys who will evaluate catheter in the morning Medical Decision Making - Medical Decision Making 52 male to the emergency department for evaluation will be admitted for need to access for dialysis. Vascular surgery to see - Lab Data Result diagrams: 10/15/22 13:13 10/15/22 13:13 - EKG Data -: EKG Interpreted by Me (EKG is sinus bradycardia 57 kg 25 QRS 114 QTc.) Disposition Clinical Impression: Dialysis catheter clot or failure Disposition: ADMITTED IP TO THIS HOSP Condition: Stable Is patient prescribed a controlled substance at d/c from ED?: No Time of Disposition: 23:30
--- NOTE | 2022-10-15 09:01 | P.GSCN ---
History of Present Illness Consult date: 10/15/22 Reason for Consult: Malfunctioning dialysis catheter Requesting physician: Bryant Ralph History of present illness: 42-year-old male who presented to the emergency department with concerns for malfunctioning hemodialysis catheter. The patient states he received dialysis yesterday and afterwards noticed blood coming from the catheter tubing. There was a hole in the tubing which was wrapped and secured patient came to the ER. Patient has a right femoral tunnel dialysis catheter. He has had issues with that in the past and had to have a wire exchange done 05/26/[address] Agarwal. Patient states that he was able to get a full dialysis yesterday however states that he has had some high pressures during dialysis. He denies any pain at the right groin or down the right leg. Denies any shortness of breath or chest pain, fevers or chills. Review of Systems A 14 point review systems was completed all pertinent positives and negatives as stated in the HPI. Past Medical History Past Medical History: Atrial Fibrillation, Dialysis, GERD/Reflux, Renal Disease, Thyroid Disorder Additional Past Medical History / Comment(s): dialysis M/W/T/TH/SAT, diverticulitis , blind, shingles in February History of Any Multi-Drug Resistant Organisms: None Reported Additional Past Surgical History / Comment(s): fistula placement , thyroidectomy Past Anesthesia/Blood Transfusion Reactions: Previous Problems w/ Anesthesia Additional Past Anesthesia/Blood Transfusion Reaction / Comm: Pt has his surgery done with local anesthetics d/t general anesthesia causing facial edema and difficulty waking. Past Psychological History: No Psychological Hx Reported Smoking Status: Never smoker Past Alcohol Use History: None Reported Past Drug Use History: None Reported - Past Family History Mother Family Medical History: Fibromyalgia, Osteoarthritis (OA) Additional Family Medical History / Comment(s): Lupus Family Family Medical History: No Reported History Additional Family Medical History / Comment(s): ETOH abuse Medications and Allergies Home Medications Medication Instructions Recorded Confirmed Type Levothyroxine Sodium [Synthroid] 50 mcg PO DAILY 12/18/17 10/15/22 History Montelukast [Singulair] 10 mg PO HS 12/18/17 10/15/22 History predniSONE 10 mg PO DAILY 04/25/21 10/15/22 History Atorvastatin [Lipitor] 20 mg PO DAILY 10/15/22 10/15/22 History Midodrine HCl [ProAmatine] 10 mg PO QID 10/15/22 10/15/22 History allopurinoL 100 mg PO DAILY 10/15/22 10/15/22 History calcitrioL [Calcitriol] 0.25 mcg PO SUTUWETHSA 10/15/22 10/15/22 History calcitrioL [Calcitriol] 0.5 mcg PO MOFR 10/15/22 10/15/22 History Allergies Allergy/AdvReac Type Severity Reaction Status Date / Time adhesive tape Allergy Itching Verified 10/15/22 08:14 codeine Allergy Rash/Hives Verified 10/15/22 08:14 cyclobenzaprine Allergy Rash/Hives Verified 10/15/22 08:14 [From Flexeril] diphenhydramine Allergy Anaphylaxis Verified 10/15/22 08:14 [From Benadryl] hydromorphone [From Dilaudid] Allergy Rash/Hives Verified 10/15/22 08:14 hydroxyzine Allergy Anaphylaxis Verified 10/15/22 08:14 Iodinated Contrast Media Allergy Anaphylaxis Verified 10/15/22 08:14 [Iodinated Contrast- Oral and IV Dye] pantoprazole [From Protonix] Allergy Anaphylaxis Verified 10/15/22 08:14 Penicillins Allergy Rash/Hives Verified 10/15/22 08:14 potassium chloride Allergy Rash/Hives Verified 10/15/22 08:14 pregabalin [From Lyrica] Allergy Anaphylaxis Verified 10/15/22 08:14 sevelamer Allergy Rash/Hives Verified 10/15/22 08:14 warfarin [From Coumadin] Allergy Anaphylaxis Verified 10/15/22 08:14 acetaminophen [From Vicodin] AdvReac Nausea & Verified 10/15/22 08:14 Vomiting aripiprazole [From Abilify] AdvReac Abdominal Verified 10/15/22 08:14 Pain aztreonam AdvReac Unknown Verified 10/15/22 08:14 calcitriol AdvReac Unknown Verified 10/15/22 08:14 cefadroxil AdvReac Unknown Verified 10/15/22 08:14 enalapril AdvReac Unknown Verified 10/15/22 08:14 hydrocodone [From Vicodin] AdvReac Nausea & Verified 10/15/22 08:14 Vomiting Influenza Virus Vaccines AdvReac Unknown Verified 10/15/22 08:14 levofloxacin [From Levaquin] AdvReac Abdominal Verified 10/15/22 08:14 Pain meloxicam [From Mobic] AdvReac Abdominal Verified 10/15/22 08:14 Pain morphine AdvReac Unknown Verified 10/15/22 08:14 propoxyphene AdvReac Unknown Verified 10/15/22 08:14 Sulfa (Sulfonamide AdvReac Vomiting Verified 10/15/22 08:14 Antibiotics) tramadol AdvReac Unknown Verified 10/15/22 08:14 Surgical - Exam Vital Signs Temp Pulse Resp BP Pulse Ox 97.7 F 96 16 103/70 99 10/14/22 21:42 10/14/22 21:42 10/14/22 21:42 10/14/22 21:42 10/14/22 21:42 General appearance: The patient is alert, oriented, appears in no acute distress. HET: Head is normocephalic and atraumatic. Neck: Supple. Heart: Regular. Lungs: Equal expansion, normal respiratory effort. Abdomen: Soft, nontender, nondistended. Extremities: Normal skin color and turgor. Right groin with HD catheter in place. right tube with a small hole oozing blood. Neurological: No focal deficits. Assessment and Plan Assessment: 1. Malfunctioning hemodialysis catheter 2. End-stage renal disease requiring hemodialysis Plan: 1. Keep nothing by mouth 2. Plans for hemodialysis catheter exchange this afternoon 3. Hemodialysis per recommendations from nephrology Thank you for this consultation. The impression and plan of care has been dictated as directed. I performed a history and examination of this patient, discussed the same with the dictator. I agree with the dictator's note ,documented as a scribe. Any additional findings or plans will be noted.
[2022-10-15] MEDS ORDERED: predniSONE 10 MG TAB PO SCH (10:15)
[2022-10-15] MEDS ORDERED: LEVOTHYROXINE 50 MCG TAB PO SCH (10:15)
[2022-10-15] MEDS ORDERED: ATORVASTATIN 20 MG TAB PO SCH (10:15)
[2022-10-15] MEDS ORDERED: allopurinoL 100 MG TAB PO SCH (10:15)
[2022-10-15] MEDS: MIDODRINE 5 MG TAB PO SCH ×2 (10:51→12:23)
[2022-10-15] MEDS ORDERED: LIDOCAINE 1% INJ 10MG/ML (20 ML MDV) ONE (11:42)
[2022-10-15] MEDS ORDERED: SODIUM CHLORIDE 0.9% 1,000 ML IV ONE (13:00)
[2022-10-15] MEDS ORDERED: VANCOMYCIN 1,250 MG in SODIUM CHLORIDE 0.9% 250 ML IVPB ONE (13:08)
[2022-10-15] MEDS ORDERED: PROPOFOL 10 MG/ML 20 ML VIAL IV ONE (13:14)
[2022-10-15] MEDS ORDERED: MIDAZOLAM 2 MG/2 ML VIAL ONE (13:14)
[2022-10-15] MEDS ORDERED: fentaNYL (PF) 50 MCG/ML 2 ML AMP ONE (13:14)
[2022-10-15] MEDS ORDERED: ONDANSETRON 4 MG/2 ML VIAL ONE (13:16)
[2022-10-15] MEDS ORDERED: ONDANSETRON 4 MG/2 ML VIAL IVP ONE (13:18)
[2022-10-15 13:21] LABS: Basophils % (A) 0 %; Eosinophils # (A) 0.1 k/uL (0-0.7); Eosinophils % (A) 1 %; HCT 36.9 % (39.0-53.0); HGB 12.1 gm/dL (13.0-17.5); Lymphocytes % (A) 22 %; MCH 32.6 pg (25.0-35.0); MCHC 32.8 g/dL (31.0-37.0); MCV 99.6 fL (80.0-100.0); Macrocytosis Slight; Mean Platelet Volume 7.6; Monocytes # (A) 0.3 k/uL (0-1.0); Monocytes % (A) 7 %; Neutrophils # (A) 3.2 k/uL (1.3-7.7); Neutrophils % (A) 69 %; Platelet Count 130 k/uL (150-450); RBC 3.71 m/uL (4.30-5.90); WBC 4.6 k/uL (3.8-10.6)
[2022-10-15] MEDS ORDERED: IV FLUID CONTINUATION 900 ML IV ONE (13:30)
[2022-10-15 13:37] LABS: ALT 25 U/L (4-49); AST 33 U/L (17-59); African American GFR (CKD) 8 (>60 ml/min/1.73 sqM); Albumin 4.1 g/dL (3.5-5.0); Albumin/Globulin Ratio 1.7; Alkaline Phosphatase 78 U/L (38-126); Anion Gap 12 mmol/L; Blood Urea Nitrogen 34 mg/dL (9-20); Carbon Dioxide 27 mmol/L (22-30); Chloride 94 mmol/L (98-107); Globulin 2.4 g/dL; Glucose 87 mg/dL (74-99); Non-African American GFR(CKD) 7 (>60 ml/min/1.73 sqM); Potassium 3.6 mmol/L (3.5-5.1); Sodium 133 mmol/L (137-145); Total Bilirubin 0.8 mg/dL (0.2-1.3); Total Protein 6.5 g/dL (6.3-8.2)
[2022-10-15] MEDS ORDERED: LIDOCAINE 1% INJ 10MG/ML (20 ML MDV) SQ ONE (13:42)
[2022-10-15] MEDS ORDERED: HEPARIN SODIUM,PORCINE 10,000 UNIT in SODIUM CHLORIDE 0.9% 1,000 ML IRRIGATION ONE (13:49)
[2022-10-15] MEDS ORDERED: ceFAZolin 4,000 MG in SODIUM CHLORIDE 0.9% 1,000 ML IRRIGATION ONE (13:49)
[2022-10-15] MEDS ORDERED: HEPARIN SODIUM,PORCINE 100 UNIT/ML 5 ML VIAL IV ONE (14:08)
--- NOTE | 2022-10-15 14:46 | P.OP ---
Date of Procedure: 10/15/22 Preoperative Diagnosis: malfunctioning tunneled hemodialysis catheter Postoperative Diagnosis: same Procedure(s) Performed: Removal and exchange of right femoral vein tunneled hemodialysis catheter Anesthesia: MAC Surgeon: Christiano Keys Estimated Blood Loss (ml): 5 Pathology: none sent Condition: stable Disposition: PACU Indications for Procedure: 52 year old gentleman with history of ESRD on HD via right femoral catheter presented to the ER secondary to a crack in the catheter and poor function. The catheter was cracked and leaking blood at the hub and needed to be exchanged. Description of Procedure: After written informed consent was obtained the patient all risks benefits and competitions were described patient was brought to the operative suite and laid in supine position. The area of the right groin and catheter were prepped fashion after appropriate anesthetic was performed per the anesthesiologist. Timeout was performed in normal fashion antibiotics were administered prior to incision. Local anesthetic was then infused overlying the existing cuff and a small incision was created with a 15 blade scalpel. Dissection was carried down to the existing catheter and cuff which was dissected free. The proximal aspect of the catheter was then grasped and the catheter was cut. The distal aspect of the catheter was then removed and sent off the field. Utilizing the proximal aspects of the catheter a guidewire was placed under fluoroscopy into the IVC and the existing catheter was then removed. Dilator was then placed to make sure no bleeding occurred. Attention was then placed to performing the tunnel. Local anesthetic was then infused overlying the area leading up to the incision site for the tunneled catheter to be placed. A small incision was created on the lateral aspect of the thigh and a 28 cm palindrome tunneled catheter was then tunneled to the incision. A breakaway sheath was then placed after removal of the dilator over the wire under fluoroscopic guidance. The catheter was then placed within the breakaway sheath and the sheath was removed. Catheter was shown to be in place and the IVC under fluoroscopy. The catheter was then assessed for patency injured flushed easily. It was then hep-locked. It was sutured in place with 3-0 nylon suture. The incision was then closed with 4-0 Vicryl suture. The skin was cleansed and dressings were placed. The patient tolerated the procedure well and was sent to PACU for recovery.
[2022-10-15] MEDS ORDERED: SODIUM CHLORIDE 0.9% 500 ML 500 ML IV ONE (15:00)
[2022-10-15 15:31] VITALS: BP 101/65; PULSE 57; RESP 16; TEMP 97.4
--- NOTE | 2022-10-15 16:12 | FL ---
Intraoperative/procedural fluoroscopic services were provided for fluoroscopy guided central line megan cement. Total fluoroscopy time is 39 seconds with a total of 4 submitted images to PACS. Total DAP 2. 1736 Gycm2. Please see the operative note for further details.
--- NOTE | 2022-10-15 17:17 | P.HPIM ---
History of Present Illness H&P Date: 10/15/22 This is a pleasant 52-year-old male who has end-stage renal disease maintained on hemodialysis which is done at home 4 times per week. Patient has bilateral atrophied kidney since he was a child. He has a right groin femoral dialysis catheter. He was noted after hemodialysis yesterday to be bleeding from the port itself and there was a small hole noted to be one of the tubes. Patient came into the hospital to have this changed out he was admitted to medicine although he was stable otherwise. He denies any chest pain, no shortness of breath no nausea vomiting or diarrhea. He was resumed on home medications including midodrine as blood pressures on the softer side with the 90s systolic. The plan is for patient to go to the OR today to have this dialysis catheter changed out with vascular services and discharged home afterwards. It is noted the patient was admitted to the hospital in December of last year for a new onset seizure this was an isolated episode the patient has been off seizure medication since with no further episodes. At this time his PCP is Dr. Jerome. REVIEW OF SYSTEMS: CONSTITUTIONAL: No fever, no malaise, no fatigue. HEENT: No recent visual problems or hearing problems. Denied any sore throat. CARDIOVASCULAR: No chest pain, orthopnea, PND, no palpitations, no syncope. PULMONARY: No shortness of breath, no cough, no hemoptysis. GASTROINTESTINAL: No diarrhea, no nausea, no vomiting, no abdominal pain. NEUROLOGICAL: No headaches, no weakness, no numbness. HEMATOLOGICAL: Denies any bleeding or petechiae. GENITOURINARY: Denies any burning micturition, frequency, or urgency. MUSCULOSKELETAL/RHEUMATOLOGICAL: Denies any joint pain, swelling, or any muscle pain. ENDOCRINE: Denies any polyuria or polydipsia. The rest of the 14-point review of systems is negative. PHYSICAL EXAMINATION: GENERAL: The patient is alert and oriented x3, not in any acute distress. Well developed, well nourished. HEENT: Pupils are round and equally reacting to light. EOMI. No scleral icterus. No conjunctival pallor. Normocephalic, atraumatic. No pharyngeal erythema. No thyromegaly. CARDIOVASCULAR: S1 and S2 present. No murmurs, rubs, or gallops. PULMONARY: Chest is clear to auscultation, no wheezing or crackles. ABDOMEN: Soft, nontender, nondistended, normoactive bowel sounds. No palpable organomegaly. MUSCULOSKELETAL: No joint swelling or deformity. EXTREMITIES: No cyanosis, clubbing, or pedal edema. NEUROLOGICAL: Gross neurological examination did not reveal any focal deficits. SKIN: No rashes. Assessment and Plan End-stage renal disease maintained on hemodialysis patient's dialysis catheter was malfunctioning and was admitted to the hospital to have this replaced he will be discharged home afterwards to resume his normal hemodialysis sessions at home. History of atrial fibrillation paroxysmal not an anticoagulation patient has low chads 2 vascular score Gastroesophageal reflux disease History of diverticulitis Hypothyroidism History of aortic stenosis Blind GI prophylaxis Full Code Plan Patient will be discharged home after placement of vascular dialysis access. Follow up with PCP Dr. Jerome per usual recommendations and resume hemodialysis. The impression and plan of care has been dictated by Afshan Mejia Nurse Practitioner as directed. Dr. Becki MD I have performed a history and physical examination and medical decision making of this patient, discussed the same with the dictator, and agree with the dictators assessment and plan as written, documented as a scribe. Based on total visit time, I have performed more than 50% of this visit. The impression and plan of care has been dictated by Afshan Mejia Nurse Practitioner as directed. Dr. Becki MD I have performed a history and physical examination and medical decision making of this patient, discussed the same with the dictator, and agree with the dictators assessment and plan as written, documented as a scribe. Based on total visit time, I have performed more than 50% of this visit. Past Medical History Past Medical History: Atrial Fibrillation, Dialysis, GERD/Reflux, Renal Disease, Thyroid Disorder Additional Past Medical History / Comment(s): dialysis M/W/T//FRI, diverticulitis , blind, shingles in February History of Any Multi-Drug Resistant Organisms: None Reported Additional Past Surgical History / Comment(s): fistula placement , thyroidectomy Past Anesthesia/Blood Transfusion Reactions: Previous Problems w/ Anesthesia Additional Past Anesthesia/Blood Transfusion Reaction / Comment(s): Pt has his surgery done with local anesthetics d/t general anesthesia causing facial edema and difficulty waking. Past Psychological History: No Psychological Hx Reported Smoking Status: Never smoker Past Alcohol Use History: None Reported Past Drug Use History: None Reported - Past Family History Mother Family Medical History: Fibromyalgia, Osteoarthritis (OA) Additional Family Medical History / Comment(s): Lupus Family Family Medical History: No Reported History Additional Family Medical History / Comment(s): ETOH abuse Medications and Allergies Home Medications Medication Instructions Recorded Confirmed Type Levothyroxine Sodium [Synthroid] 50 mcg PO DAILY 12/18/17 10/15/22 History Montelukast [Singulair] 10 mg PO HS 12/18/17 10/15/22 History predniSONE 10 mg PO DAILY 04/25/21 10/15/22 History Atorvastatin [Lipitor] 20 mg PO DAILY 10/15/22 10/15/22 History Midodrine HCl [ProAmatine] 10 mg PO QID 10/15/22 10/15/22 History allopurinoL 100 mg PO DAILY 10/15/22 10/15/22 History calcitrioL [Calcitriol] 0.25 mcg PO SUTUWETHSA 10/15/22 10/15/22 History calcitrioL [Calcitriol] 0.5 mcg PO MOFR 10/15/22 10/15/22 History Allergies Allergy/AdvReac Type Severity Reaction Status Date / Time adhesive tape Allergy Itching Verified 10/15/22 12:53 codeine Allergy Rash/Hives Verified 10/15/22 12:53 cyclobenzaprine Allergy Rash/Hives Verified 10/15/22 12:53 [From Flexeril] diphenhydramine Allergy Anaphylaxis Verified 10/15/22 12:53 [From Benadryl] hydromorphone [From Dilaudid] Allergy Rash/Hives Verified 10/15/22 12:53 hydroxyzine Allergy Anaphylaxis Verified 10/15/22 12:53 Iodinated Contrast Media Allergy Anaphylaxis Verified 10/15/22 12:53 [Iodinated Contrast- Oral and IV Dye] pantoprazole [From Protonix] Allergy Anaphylaxis Verified 10/15/22 12:53 Penicillins Allergy Rash/Hives Verified 10/15/22 12:53 potassium chloride Allergy Rash/Hives Verified 10/15/22 12:53 pregabalin [From Lyrica] Allergy Anaphylaxis Verified 10/15/22 12:53 sevelamer Allergy Rash/Hives Verified 10/15/22 12:53 warfarin [From Coumadin] Allergy Anaphylaxis Verified 10/15/22 12:53 acetaminophen [From Vicodin] AdvReac Nausea & Verified 10/15/22 12:53 Vomiting aripiprazole [From Abilify] AdvReac Abdominal Verified 10/15/22 12:53 Pain aztreonam AdvReac Unknown Verified 10/15/22 12:53 calcitriol AdvReac Unknown Verified 10/15/22 12:53 cefadroxil AdvReac Unknown Verified 10/15/22 12:53 enalapril AdvReac Unknown Verified 10/15/22 12:53 hydrocodone [From Vicodin] AdvReac Nausea & Verified 10/15/22 12:53 Vomiting Influenza Virus Vaccines AdvReac Unknown Verified 10/15/22 12:53 levofloxacin [From Levaquin] AdvReac Abdominal Verified 10/15/22 12:53 Pain meloxicam [From Mobic] AdvReac Abdominal Verified 10/15/22 12:53 Pain morphine AdvReac Unknown Verified 10/15/22 12:53 propoxyphene AdvReac Unknown Verified 10/15/22 12:53 Sulfa (Sulfonamide AdvReac Vomiting Verified 10/15/22 12:53 Antibiotics) tramadol AdvReac Unknown Verified 10/15/22 12:53 Physical Exam Vitals: Vital Signs Temp Pulse Resp BP Pulse Ox 10/15/22 07:38 65 18 92/56 96 10/15/22 06:00 66 18 97/50 97 10/15/22 00:50 57 L 18 101/57 97 10/14/22 21:42 97.7 F 96 16 103/70 99 Intake and Output 10/14/22 10/15/22 10/15/22 22:59 06:59 14:59 Other: Weight 82.1 kg Results CBC & Chem 7: 10/15/22 13:13 10/15/22 13:13 Assessment and Plan Time with Patient: Less than 30
--- NOTE | 2022-10-15 17:23 | P.DS ---
Providers Date of admission: 10/14/22 23:31 Attending physician: Rob Storm Consults: 10/14/22 23:29 Consult Physician Routine Consulting Provider: Christiano Keys Consult Reason/Comments: known Do you want consulting provider notified?: Yes Primary care physician: Mychal Jerome Hospital Course: Final Diagnosis End-stage renal disease maintained on hemodialysis patient's dialysis catheter was malfunctioning and was admitted to the hospital History of atrial fibrillation paroxysmal not an anticoagulation patient has low chads 2 vascular score Gastroesophageal reflux disease History of diverticulitis Hypothyroidism History of aortic stenosis Blind GI prophylaxis Full Code Discharge Disposition Patient is stable for discharge home after recovering from removal and exchange of the right femoral vein tunneled hemodialysis catheter. This was performed today by Dr. Keys.. There was a crack in the catheter with poor function and was leaking blood at the hub. Patient is recommended to discharge home and resume his normal scheduled hemodialysis session. Resume all other same home medications and follow up with Dr Jerome per usual. Hospital Course This is a pleasant 52-year-old male who has end-stage renal disease maintained on hemodialysis which is done at home 4 times per week. Patient has bilateral atrophied kidney since he was a child. He has a right groin femoral dialysis ca theter. He was noted after hemodialysis yesterday to be bleeding from the port itself and there was a small hole noted to be one of the tubes. Patient came into the hospital to have this changed out he was admitted to medicine although he was stable otherwise. He denies any chest pain, no shortness of breath no nausea vomiting or diarrhea. He was resumed on home medications including midodrine as blood pressures on the softer side with the 90s systolic. The plan is for patient to go to the OR today to have this dialysis catheter changed out with vascular services and discharged home afterwards. It is noted the patient was admitted to the hospital in December of last year for a new onset seizure this was an isolated episode the patient has been off seizure medication since with no further episodes. At this time his PCP is Dr. Jerome. As above patient underwent removal and exchange of the right femoral vein tunneled to my office catheter will be discharged home. Please see medication reconciliation for a list of current medication. Thank you for allowing us to participate in the care of this patient. The impression and plan of care has been dictated by Afshan Mejia, Nurse Practitioner as directed. Dr. Becki MD I have performed a history and physical examination and medical decision making of this patient, discussed the same with the dictator, and agree with the dictators assessment and plan as written, documented as a scribe. Based on total visit time, I have performed more than 50% of this visit. Patient Condition at Discharge: Stable Plan - Discharge Summary New Discharge Prescriptions: Continue Montelukast [Singulair] 10 mg PO HS Levothyroxine Sodium [Synthroid] 50 mcg PO DAILY allopurinoL 100 mg PO DAILY predniSONE 10 mg PO DAILY calcitrioL [Calcitriol] 0.25 mcg PO SUTUWETHSA calcitrioL [Calcitriol] 0.5 mcg PO MOFR Midodrine HCl [ProAmatine] 10 mg PO QID Atorvastatin [Lipitor] 20 mg PO DAILY Discharge Medication List Levothyroxine Sodium [Synthroid] 50 mcg PO DAILY 12/18/17 [History] Montelukast [Singulair] 10 mg PO HS 12/18/17 [History] predniSONE 10 mg PO DAILY 04/25/21 [History] Atorvastatin [Lipitor] 20 mg PO DAILY 10/15/22 [History] Midodrine HCl [ProAmatine] 10 mg PO QID 10/15/22 [History] allopurinoL 100 mg PO DAILY 10/15/22 [History] calcitrioL [Calcitriol] 0.25 mcg PO SUTUWETHSA 10/15/22 [History] calcitrioL [Calcitriol] 0.5 mcg PO MOFR 10/15/22 [History] Follow up Appointment(s)/Referral(s): Scottie Agarwal DO [Doctor of Osteopathic Medicine] - As Needed Mychal Jerome DO [Primary Care Provider] - 1-2 days Patient Instructions/Handouts: Perma-cath Placement (DC) Activity/Diet/Wound Care/Special Instructions: Follow up with nephrology per usual and continue same home dialysis recommendations Follow up with vascular surgery if any issues with dialysis catheter Discharge Disposition: HOME SELF-CARE
[2022-10-15] MEDS ORDERED: MONTELUKAST 10 MG TAB PO SCH (21:00)
== END 2022-10-15 17:39 | disposition home or self-care (01) ==
LOC: EC 21:30 → 6NMEDSUR 23:31
PROVIDERS: ADMIT Hospitalist; ATTEND Hospitalist
DX: T82.43XA Leakage of vascular dialysis catheter, initial encounter (principal); N18.6 End stage renal disease; Q60.4 Renal hypoplasia, bilateral; Z99.2 Dependence on renal dialysis; I48.0 Paroxysmal atrial fibrillation; K21.9 Gastro-esophageal reflux disease without esophagitis; E07.9 Disorder of thyroid, unspecified; H54.7 Unspecified visual loss; Z98.890 Other specified postprocedural states; Z87.19 Personal history of other diseases of the digestive system; Z86.19 Personal history of other infectious and parasitic diseases; E89.0 Postprocedural hypothyroidism; Z82.61 Family history of arthritis; Z83.2 Family history of diseases of the blood and blood-forming organs and certain disorders involving the immune mechanism; Z81.1 Family history of alcohol abuse and dependence; Z79.890 Hormone replacement therapy; Z79.52 Long term (current) use of systemic steroids; Z79.899 Other long term (current) drug therapy; Z91.041 Radiographic dye allergy status; Z88.5 Allergy status to narcotic agent; Z88.0 Allergy status to penicillin; Z88.8 Allergy status to other drugs, medicaments and biological substances; Z91.09 Other allergy status, other than to drugs and biological substances; Z88.6 Allergy status to analgesic agent; Z88.2 Allergy status to sulfonamides; Z88.7 Allergy status to serum and vaccine; Z88.4 Allergy status to anesthetic agent
CPT/HCPCS: 99285; 93005; 80053; 85025; 77001; 36581; G0378 ×2; C1750; J2250; J3370; J1644; J1642; J2405; J0690; J2001; J3010; J2704; J7512

== ENCOUNTER 2023-03-24 15:56 | Emergency (ER) | payer MEDICARE, OTHER ==
[2023-03-24 16:24] VITALS: BP 96/61; PULSE 114; RESP 16; TEMP 98
--- NOTE | 2023-03-24 17:07 | XR ---
EXAMINATION TYPE: XR knee complete LT DATE OF EXAM: 03/24/2023 COMPARISON: None HISTORY: Pain, fall TECHNIQUE: 3 view left knee FINDINGS: Extensive vascular calcification is noted. Knee joint spaces are preserved. Small joint effusion may be present. No acute fracture or dislocation is evident. Follow up exams can be performed 7-10 days from acute tr auma for continued pain. IMPRESSION: 1. No acute osseous abnormality left knee
--- NOTE | 2023-03-24 17:08 | XR ---
EXAMINATION TYPE: XR elbow complete RT DATE OF EXAM: 03/24/2023 COMPARISON: None HISTORY: Fall, pain and bruising TECHNIQUE: 3 view right elbow FINDINGS: Radius aligns normally with the humerus. No elevation of the anterior posterior fat pad is evident. There is diffuse soft tissue swelling over the olecranon. Extensive vascular calcification i s noted. Follow up exams can be performed 7-10 days from acute trauma for continued pain. IMPRESSION: 1. No acute osseous abnormality. 2. Soft tissue swelling dorsal right elbow
--- NOTE | 2023-03-24 17:37 | ED ---
General Adult HPI - General Chief complaint: Fall Stated complaint: fall knee and elbow pain Time Seen by Provider: 03/24/23 17:45 Source: patient, RN notes reviewed Mode of arrival: wheelchair Limitations: no limitations - History of Present Illness Initial comments: 52-year-old male presents emergency department for evaluation of left knee pain and right elbow pain following a fall that occurred 3 days ago. Patient states that he tripped and landed with his left knee twisted and he hit his right elbow on the ground. Patient note swelling to the right elbow with bruising. - Related Data Home Medications Medication Instructions Recorded Confirmed Levothyroxine Sodium [Synthroid] 50 mcg PO DAILY 12/18/17 10/15/22 Montelukast [Singulair] 10 mg PO HS 12/18/17 10/15/22 predniSONE 10 mg PO DAILY 04/25/21 10/15/22 Atorvastatin [Lipitor] 20 mg PO DAILY 10/15/22 10/15/22 Midodrine HCl [ProAmatine] 10 mg PO QID 10/15/22 10/15/22 allopurinoL 100 mg PO DAILY 10/15/22 10/15/22 calcitrioL [Calcitriol] 0.25 mcg PO SUTUWETHSA 10/15/22 10/15/22 calcitrioL [Calcitriol] 0.5 mcg PO MOFR 10/15/22 10/15/22 Allergies Allergy/AdvReac Type Severity Reaction Status Date / Time adhesive tape Allergy Itching Verified 03/24/23 16:20 codeine Allergy Rash/Hives Verified 03/24/23 16:20 cyclobenzaprine Allergy Rash/Hives Verified 03/24/23 16:20 [From Flexeril] diphenhydramine Allergy Anaphylaxis Verified 03/24/23 16:20 [From Benadryl] hydromorphone [From Dilaudid] Allergy Rash/Hives Verified 03/24/23 16:20 hydroxyzine Allergy Anaphylaxis Verified 03/24/23 16:20 Iodinated Contrast Media Allergy Anaphylaxis Verified 03/24/23 16:20 [Iodinated Contrast- Oral and IV Dye] pantoprazole [From Protonix] Allergy Anaphylaxis Verified 03/24/23 16:20 Penicillins Allergy Rash/Hives Verified 03/24/23 16:20 potassium chloride Allergy Rash/Hives Verified 03/24/23 16:20 pregabalin [From Lyrica] Allergy Anaphylaxis Verified 03/24/23 16:20 sevelamer Allergy Rash/Hives Verified 03/24/23 16:20 warfarin [From Coumadin] Allergy Anaphylaxis Verified 03/24/23 16:20 acetaminophen [From Vicodin] AdvReac Nausea & Verified 03/24/23 16:20 Vomiting aripiprazole [From Abilify] AdvReac Abdominal Verified 03/24/23 16:20 Pain aztreonam AdvReac Unknown Verified 03/24/23 16:20 calcitriol AdvReac Unknown Verified 03/24/23 16:20 cefadroxil AdvReac Unknown Verified 03/24/23 16:20 enalapril AdvReac Unknown Verified 03/24/23 16:20 hydrocodone [From Vicodin] AdvReac Nausea & Verified 03/24/23 16:20 Vomiting Influenza Virus Vaccines AdvReac Unknown Verified 03/24/23 16:20 levofloxacin [From Levaquin] AdvReac Abdominal Verified 03/24/23 16:20 Pain meloxicam [From Mobic] AdvReac Abdominal Verified 03/24/23 16:20 Pain morphine AdvReac Unknown Verified 03/24/23 16:20 propoxyphene AdvReac Unknown Verified 03/24/23 16:20 Sulfa (Sulfonamide AdvReac Vomiting Verified 03/24/23 16:20 Antibiotics) tramadol AdvReac Unknown Verified 03/24/23 16:20 Review of Systems ROS Statement: Those systems with pertinent positive or pertinent negative responses have been documented in the HPI. ROS Other: All systems not noted in ROS Statement are negative. Past Medical History Past Medical History: Atrial Fibrillation, Dialysis, GERD/Reflux, Renal Disease, Thyroid Disorder Additional Past Medical History / Comment(s): dialysis M/W/T/TH/SAT, diverticulitis , blind, shingles in February History of Any Multi-Drug Resistant Organisms: None Reported Additional Past Surgical History / Comment(s): fistula placement , thyroidectomy Past Anesthesia/Blood Transfusion Reactions: Previous Problems w/ Anesthesia Additional Past Anesthesia/Blood Transfusion Reaction / Comment(s): Pt has his surgery done with local anesthetics d/t general anesthesia causing facial edema and difficulty waking. Past Psychological History: No Psychological Hx Reported Smoking Status: Never smoker Past Alcohol Use History: None Reported Past Drug Use History: None Reported - Past Family History Mother Family Medical History: Fibromyalgia, Osteoarthritis (OA) Additional Family Medical History / Comment(s): Lupus Family Family Medical History: No Reported History Additional Family Medical History / Comment(s): ETOH abuse General Exam Limitations: no limitations General appearance: alert, in no apparent distress Head exam: Present: atraumatic, normocephalic, normal inspection Eye exam: Present: normal appearance, PERRL, EOMI. Absent: scleral icterus, conjunctival injection, periorbital swelling ENT exam: Present: normal exam, mucous membranes moist Extremities exam: Present: tenderness, normal capillary refill, other (Pulses 1+ bilaterally, ecchymosis present on anterior forearm). Absent: pedal edema, joint swelling, calf tenderness Back exam: Present: normal inspection Neurological exam: Present: alert, oriented X3 Psychiatric exam: Present: normal affect, normal mood Skin exam: Present: warm, dry, intact, other (ecchymosis to right anterior forearm). Absent: normal color Course Vital Signs 03/24/23 16:18 Temperature 98 F Pulse Rate 114 H Respiratory 16 Rate Blood Pressure 96/61 O2 Sat by Pulse 97 Oximetry Medical Decision Making - Medical Decision Making Was pt. sent in by a medical professional or institution (, PA, MEDICINAL CHEMIST, urgent care, hospital, or prison...) When possible be specific @ -No Did you speak to anyone other than the patient for history (EMS, parent, family, police, friend...)? What history was obtained from this source @ -No Did you review nursing and triage notes (agree or disagree)? Why? @ -I reviewed and agree with nursing and triage notes Were old charts reviewed (outside hosp., previous admission, EMS record, old EKG, old radiological studies, urgent care reports/EKG's, prison records)? Report findings @ -No old charts were reviewed Differential Diagnosis (chest pain, altered mental status, abdominal pain women, abdominal pain men, vaginal bleeding, weakness, fever, dyspnea, syncope, headache, dizziness, GI bleed, back pain, seizure, CVA, palpatations, mental health, musculoskeletal)? @ -Differential Musculoskeletal Muscular strain, contusion, ligament sprain, fracture, arthritis, septic arthritis, bursitis, cellulitis, muscle spasm, nerve compression, DVT, arterial occlusion, herpes zoster, electrolyte abnormality, tumor.... This is not meant to be in all inclusive list EKG interpreted by me (3pts min.). @ -none X-rays interpreted by me (1pt min.). @ -XR left knee shows no acute fracture, arterial disease presents XR right elbow shows no acute fracture CT interpreted by me (1pt min.). @ -None done U/S interpreted by me (1pt. min.). @ -None done What testing was considered but not performed or refused? (CT, X-rays, U/S, labs)? Why? @ -None What meds were considered but not given or refused? Why? @ -None Did you discuss the management of the patient with other professionals (professionals i.e. DrLety, PA, MEDICINAL CHEMIST, lab, RT, psych nurse, director of social media marketing, music manager, teacher, special assets officer, case worker)? Give summary @ -No Was smoking cessation discussed for >3mins.? @ -No Was critical care preformed (if so, how long)? @ -No Were there social determinants of health that impacted care today? How? (Homele ssness, low income, unemployed, alcoholism, drug addiction, transportation, low edu. Level, literacy, decrease access to med. care, fpc, rehab)? @ -No Was there de-escalation of care discussed even if they declined (Discuss DNR or withdrawal of care, Hospice)? DNR status @ -No What co-morbidities impacted this encounter? (DM, HTN, Smoking, COPD, CAD, Cancer, CVA, ARF, Chemo, Hep., AIDS, mental health diagnosis, sleep apnea, morbid obesity)? @ -None Was patient admitted / discharged? Hospital course, mention meds given and route, prescriptions, significant lab abnormalities, going to OR and other pertinent info. @ -discharged. Patient presented to the emergency department for evaluation of right elbow pain and left knee pain following a fall. X-rays obtained which show no acute fracture. Patient has 1+ radial pulses bilaterally which the patient states is normal for him. He states that it is typically difficult for medical to find his pulses. Patient has normal sensation in upper and lower extremities. Cap refill less than 2 seconds. Patient is able to ambulate. Discussed XR results with patient's previous records from precautions discussed. Patient stable upon discharge. Case discussed with Dr. Hager. Undiagnosed new problem with uncertain prognosis? @ -No Drug Therapy requiring intensive monitoring for toxicity (Heparin, Nitro, Insulin, Cardizem)? @ -No Were any procedures done? @ -No Diagnosis/symptom? @ -fall, knee sprain Acute, or Chronic, or Acute on Chronic? @ -acute Uncomplicated (without systemic symptoms) or Complicated (systemic symptoms)? @ -uncomplicated Side effects of treatment? @ -No Exacerbation, Progression, or Severe Exacerbation? @ -No Poses a threat to life or bodily function? How? (Chest pain, [place], NH, pneumonia, PE, COPD, DKA, ARF, appy, cholecystitis, CVA, Diverticulitis, Homicidal, Suicidal, threat to staff... and all critical care pts) @ -No Disposition Clinical Impression: Fall, Knee sprain Disposition: HOME SELF-CARE Condition: Stable Instructions (If sedation given, give patient instructions): Fall Prevention (ED) Additional Instructions: Please follow up with your primary care provider. Return to the emergency department for new or worsening symptoms. Is patient prescribed a controlled substance at d/c from ED?: No Referrals: Mychal Jerome DO [Primary Care Provider] - 1-2 days Vladimir Byrd DO [Doctor of Osteopathic Medicine] - 1-2 days
--- NOTE | 2023-03-24 18:35 | XR ---
EXAMINATION TYPE: XR forearm RT DATE OF EXAM: 03/24/2023 COMPARISON: None HISTORY: Bruising and swelling TECHNIQUE: 2 view right forearm FINDINGS: No acute fractures or dislocations evident. Elbow joint space is visualized appears within normal limits. Extensive vascular calcification is present. Soft tissues are unremarkable. Follow up exams can be performed 7-10 days from acute trauma for continued pain. IMPRESSION: 1. No acute osseous abnormality right forearm
--- NOTE | 2023-03-24 18:42 | XR ---
EXAMINATION TYPE: XR tibia fibula LT DATE OF EXAM: 03/24/2023 COMPARISON: None HISTORY: Left knee pain following fall TECHNIQUE: 2 view left tibia and fibula FINDINGS: No acute fracture or dislocation is evident. Extensive vascular calcification is present. S oft tissues appear unremarkable. Joint spaces are preserved. Follow up exams can be performed 7 days IMPRESSION: 1. No acute osseous abnormality left tibia and fibula.
[2023-03-24] MEDS ORDERED: MORPHINE SULFATE 2 MG/ML SYRINGE IM ONE (19:30)
== END 2023-03-24 20:22 | disposition home or self-care (01) ==
LOC: EC 15:56
DX: S83.92XA Sprain of unspecified site of left knee, initial encounter (principal); I48.91 Unspecified atrial fibrillation; E07.9 Disorder of thyroid, unspecified; Z79.890 Hormone replacement therapy; Z88.0 Allergy status to penicillin; Z88.2 Allergy status to sulfonamides; Z88.5 Allergy status to narcotic agent; Z88.6 Allergy status to analgesic agent; Z88.8 Allergy status to other drugs, medicaments and biological substances; Z88.7 Allergy status to serum and vaccine; W01.0XXA Fall on same level from slipping, tripping and stumbling without subsequent striking against object, initial encounter
CPT/HCPCS: 73080; 73090; 73590; 73562; 99284; 96372; J2270

== ENCOUNTER 2023-04-09 08:57 | Emergency (ER) | payer MEDICARE, OTHER ==
[2023-04-09 09:30] VITALS: BP 96/54; PULSE 112; RESP 20; TEMP 98.9
[2023-04-09] MEDS ORDERED: ALTEPLASE 2 MG VIAL (CATHFLO) IV STA (10:01)
--- NOTE | 2023-04-09 11:10 | XR ---
EXAMINATION TYPE: XR chest 2V DATE OF EXAM: 04/09/2023 COMPARISON: 01/10/2022 INDICATION: Short of breath, cough TECHNIQUE: Frontal and lateral views of the chest are obtained. FINDINGS: The heart size is mildly prominent. The pulmonary vasculature is normal. Mild bibasilar infiltrates are present. Correlate for atelectasis. Mild pneumonia in the left base ma y be present. Follow-up is recommended. IMPRESSION: 1. Bibasilar infiltrates. Correlate for atelectasis. Consider left lower lobe pneumonia. Follow-up is recommended.
[2023-04-09 11:26] LABS: Basophils % (A) 0 %; Eosinophils % (A) 0 %; HCT 26.5 % (39.0-53.0); HGB 8.5 gm/dL (13.0-17.5); Hypochromasia Slight; Lymphocytes # (A) 0.6 k/uL (1.0-4.8); Lymphocytes % (A) 6 %; MCH 31.4 pg (25.0-35.0); MCHC 32.1 g/dL (31.0-37.0); MCV 97.6 fL (80.0-100.0); Mean Platelet Volume 7.7; Monocytes # (A) 0.3 k/uL (0-1.0); Monocytes % (A) 3 %; Neutrophils # (A) 8.5 k/uL (1.3-7.7); Neutrophils % (A) 90 %; Platelet Count 268 k/uL (150-450); RBC 2.72 m/uL (4.30-5.90); RDW 14.8 % (11.5-15.5); WBC 9.4 k/uL (3.8-10.6)
[2023-04-09 11:43] LABS: ALT 16 U/L (4-49); AST 27 U/L (17-59); African American GFR (CKD) 5 (>60 ml/min/1.73 sqM); Albumin 3.8 g/dL (3.5-5.0); Alkaline Phosphatase 73 U/L (38-126); Anion Gap 18 mmol/L; Blood Urea Nitrogen 66 mg/dL (9-20); Calcium 8.5 mg/dL (8.4-10.2); Carbon Dioxide 20 mmol/L (22-30); Chloride 94 mmol/L (98-107); Glucose 96 mg/dL (74-99); Magnesium 1.9 mg/dL (1.6-2.3); Non-African American GFR(CKD) 4 (>60 ml/min/1.73 sqM); Phosphorus 5.8 mg/dL (2.5-4.5); Potassium 3.5 mmol/L (3.5-5.1); Sodium 132 mmol/L (137-145); Total Bilirubin 0.6 mg/dL (0.2-1.3); Total Protein 6.1 g/dL (6.3-8.2)
--- NOTE | 2023-04-09 11:53 | ED ---
General Adult HPI - General Chief complaint: Recheck/Abnormal Lab/Rx Stated complaint: cath issue Time Seen by Provider: 04/09/23 10:01 Source: patient, RN notes reviewed Mode of arrival: ambulatory Limitations: no limitations - History of Present Illness Initial comments: 52-year-old male presents emergency department with chief complaint of clogged dialysis catheter. He states it is in his right groin he does home dialysis 4 times a week. They placed heparin in it last night and tried to flush it this morning but was unsuccessful. Patient states he also has had some cough and cold-like symptoms and shortness of breath. He states he has a productive cough at times but mostly nonproductive he has shortness of breath and increasing nasal congestion possible fever. - Related Data Home Medications Medication Instructions Recorded Confirmed Levothyroxine Sodium [Synthroid] 50 mcg PO DAILY 12/18/17 10/15/22 Montelukast [Singulair] 10 mg PO HS 12/18/17 10/15/22 predniSONE 10 mg PO DAILY 04/25/21 10/15/22 Atorvastatin [Lipitor] 20 mg PO DAILY 10/15/22 10/15/22 Midodrine HCl [ProAmatine] 10 mg PO QID 10/15/22 10/15/22 allopurinoL 100 mg PO DAILY 10/15/22 10/15/22 calcitrioL [Calcitriol] 0.25 mcg PO SUTUWETHSA 10/15/22 10/15/22 calcitrioL [Calcitriol] 0.5 mcg PO MOFR 10/15/22 10/15/22 Previous Rx's Medication Instructions Recorded Azithromycin [Zithromax Z Pack] 0 tab PO DIRECTED #6 tab 04/09/23 Allergies Allergy/AdvReac Type Severity Reaction Status Date / Time adhesive tape Allergy Itching Verified 04/09/23 09:15 codeine Allergy Rash/Hives Verified 04/09/23 09:15 cyclobenzaprine Allergy Rash/Hives Verified 04/09/23 09:15 [From Flexeril] diphenhydramine Allergy Anaphylaxis Verified 04/09/23 09:15 [From Benadryl] hydromorphone [From Dilaudid] Allergy Rash/Hives Verified 04/09/23 09:15 hydroxyzine Allergy Anaphylaxis Verified 04/09/23 09:15 Iodinated Contrast Media Allergy Anaphylaxis Verified 04/09/23 09:15 [Iodinated Contrast- Oral and IV Dye] pantoprazole [From Protonix] Allergy Anaphylaxis Verified 04/09/23 09:15 Penicillins Allergy Rash/Hives Verified 04/09/23 09:15 potassium chloride Allergy Rash/Hives Verified 04/09/23 09:15 pregabalin [From Lyrica] Allergy Anaphylaxis Verified 04/09/23 09:15 sevelamer Allergy Rash/Hives Verified 04/09/23 09:15 warfarin [From Coumadin] Allergy Anaphylaxis Verified 04/09/23 09:15 acetaminophen [From Vicodin] AdvReac Nausea & Verified 04/09/23 09:15 Vomiting aripiprazole [From Abilify] AdvReac Abdominal Verified 04/09/23 09:15 Pain aztreonam AdvReac Unknown Verified 04/09/23 09:15 calcitriol AdvReac Unknown Verified 04/09/23 09:15 cefadroxil AdvReac Unknown Verified 04/09/23 09:15 enalapril AdvReac Unknown Verified 04/09/23 09:15 hydrocodone [From Vicodin] AdvReac Nausea & Verified 04/09/23 09:15 Vomiting Influenza Virus Vaccines AdvReac Unknown Verified 04/09/23 09:15 levofloxacin [From Levaquin] AdvReac Abdominal Verified 04/09/23 09:15 Pain meloxicam [From Mobic] AdvReac Abdominal Verified 04/09/23 09:15 Pain morphine AdvReac Unknown Verified 04/09/23 09:15 propoxyphene AdvReac Unknown Verified 04/09/23 09:15 Sulfa (Sulfonamide AdvReac Vomiting Verified 04/09/23 09:15 Antibiotics) tramadol AdvReac Unknown Verified 04/09/23 09:15 Review of Systems ROS Statement: Those systems with pertinent positive or pertinent negative responses have been documented in the HPI. ROS Other: All systems not noted in ROS Statement are negative. Past Medical History Past Medical History: Atrial Fibrillation, Dialysis, GERD/Reflux, Renal Disease, Thyroid Disorder Additional Past Medical History / Comment(s): dialysis M/W/T/TH/SAT, diverticulitis , blind, shingles in February History of Any Multi-Drug Resistant Organisms: None Reported Additional Past Surgical History / Comment(s): fistula placement , thyroidectomy Past Anesthesia/Blood Transfusion Reactions: Previous Problems w/ Anesthesia Additional Past Anesthesia/Blood Transfusion Reaction / Comment(s): Pt has his surgery done with local anesthetics d/t general anesthesia causing facial edema and difficulty waking. Past Psychological History: No Psychological Hx Reported Smoking Status: Never smoker Past Alcohol Use History: None Reported Past Drug Use History: None Reported - Past Family History Mother Family Medical History: Fibromyalgia, Osteoarthritis (OA) Additional Family Medical History / Comment(s): Lupus Family Family Medical History: No Reported History Additional Family Medical History / Comment(s): ETOH abuse General Exam Limitations: no limitations General appearance: alert, in no apparent distress Head exam: Present: atraumatic, normocephalic, normal inspection Respiratory exam: Present: rales, rhonchi. Absent: normal lung sounds bilater ally, respiratory distress, wheezes, stridor Cardiovascular Exam: Present: normal rhythm, tachycardia, normal heart sounds. Absent: systolic murmur, diastolic murmur, rubs, gallop, clicks Course Vital Signs 04/09/23 09:11 Temperature 98.9 F Pulse Rate 112 H Respiratory 20 Rate Blood Pressure 96/54 O2 Sat by Pulse 98 Oximetry Medical Decision Making - Medical Decision Making Was pt. sent in by a medical professional or institution (, PA, FUR [employer]ER, urgent care, hospital, or jail...) When possible be specific @ -No Did you speak to anyone other than the patient for history (EMS, parent, family, police, friend...)? What history was obtained from this source @ -No Did you review nursing and triage notes (agree or disagree)? Why? @ -I reviewed and agree with nursing and triage notes Were old charts reviewed (outside hosp., previous admission, EMS record, old EKG, old radiological studies, urgent care reports/EKG's, jail records)? Report findings @ -No old charts were reviewed Differential Diagnosis (chest pain, altered mental status, abdominal pain women, abdominal pain men, vaginal bleeding, weakness, fever, dyspnea, syncope, headache, dizziness, GI bleed, back pain, seizure, CVA, palpatations, mental health, musculoskeletal)? @ -[Dialysis catheter complication, pneumonia, influenza, COVID EKG interpreted by me (3pts min.). @ -None X-rays interpreted by me (1pt min.). @ -[Chest x-ray shows evidence of lobar pneumonia CT interpreted by me (1pt min.). @ -[None done U/S interpreted by me (1pt. min.). @ -None done What testing was considered but not performed or refused? (CT, X-rays, U/S, labs)? Why? @ -None What meds were considered but not given or refused? Why? @ -None Did you discuss the management of the patient with other professionals (professionals i.e. DrLety, PA, F[employer]ER, lab, RT, psych nurse, director of social work, unix consultant, teacher, commanding officer garage, case advocate)? Give summary @ -[[employer] to instill alteplase and dialysis catheter who also discussed the case with Dr. Lucia Was smoking cessation discussed for >3mins.? @ -No Was critical care preformed (if so, how long)? @ -No Were there social determinants of health that impacted care today? How? (Homelessness, low income, unemployed, alcoholism, drug addiction, t ransportation, low edu. Level, literacy, decrease access to med. care, group home, rehab)? @ -No Was there de-escalation of care discussed even if they declined (Discuss DNR or withdrawal of care, Hospice)? DNR status @ -No What co-morbidities impacted this encounter? (DM, HTN, Smoking, COPD, CAD, Cancer, CVA, ARF, Chemo, Hep., AIDS, mental health diagnosis, sleep apnea, morbid obesity)? @ -ESRD Was patient admitted / discharged? Hospital course, mention meds given and route, prescriptions, significant lab abnormalities, going to OR and other pertinent info. @ -Did charge patient's dialysis catheter was clotted alteplase was used to flush the catheter with no complications. Patient does have evidence of pneumonia was given Rocephin discharged on azithromycin patient will have close follow-up return transverse gas. Undiagnosed new problem with uncertain prognosis? @ -No Drug Therapy requiring intensive monitoring for toxicity (Heparin, Nitro, Insulin, Cardizem)? @ -No Were any procedures done? @ -No Diagnosis/symptom? @ -Pneumonia, dialysis catheter clot Acute, or Chronic, or Acute on Chronic? @ -[Acute Uncomplicated (without systemic symptoms) or Complicated (systemic symptoms)? @ -Complicated Side effects of treatment? @ -[No Exacerbation, Progression, or Severe Exacerbation? @ -No Poses a threat to life or bodily function? How? (Chest pain, [place], [place], pneumonia, PE, COPD, DKA, ARF, appy, cholecystitis, CVA, Diverticulitis, Homicidal, Suicidal, threat to staff... and all critical care pts) @ -[Yes patient has pneumonia - Lab Data Result diagrams: 04/09/23 11:18 04/09/23 11:18 Lab Results 04/09/23 04/09/23 04/09/23 Range/Units 11:18 11:18 11:18 WBC 9.4 (3.8-10.6) k/uL RBC 2.72 L (4.30-5.90) m/uL Hgb 8.5 L (13.0-17.5) gm/dL Hct 26.5 L (39.0-53.0) % MCV 97.6 (80.0-100.0) fL MCH 31.4 (25.0-35.0) pg MCHC 32.1 (31.0-37.0) g/dL RDW 14.8 (11.5-15.5) % Plt Count 268 (150-450) k/uL MPV 7.7 Neutrophils % 90 % Lymphocytes % 6 % Monocytes % 3 % Eosinophils % 0 % Basophils % 0 % Neutrophils # 8.5 H (1.3-7.7) k/uL Lymphocytes # 0.6 L (1.0-4.8) k/uL Monocytes # 0.3 (0-1.0) k/uL Eosinophils # 0.0 (0-0.7) k/uL Basophils # 0.0 (0-0.2) k/uL Hypochromasia Slight Sodium 132 L (137-145) mmol/L Potassium 3.5 (3.5-5.1) mmol/L Chloride 94 L (98-107) mmol/L Carbon Dioxide 20 L (22-30) mmol/L Anion Gap 18 mmol/L BUN 66 H (9-20) mg/dL Creatinine 11.97 H* (0.66-1.25) mg/dL Est GFR (CKD-EPI)AfAm 5 (>60 ml/min/1.73 sqM) Est GFR (CKD-EPI)NonAf 4 (>60 ml/min/1.73 sqM) Glucose 96 (74-99) mg/dL Calcium 8.5 (8.4-10.2) mg/dL Phosphorus 5.8 H (2.5-4.5) mg/dL Magnesium 1.9 (1.6-2.3) mg/dL Total Bilirubin 0.6 (0.2-1.3) mg/dL AST 27 (17-59) U/L ALT 16 (4-49) U/L Alkaline Phosphatase 73 (38-126) U/L Total Protein 6.1 L (6.3-8.2) g/dL Albumin 3.8 (3.5-5.0) g/dL Influenza Type A (PCR) Not Detected (Not Detectd) Influenza Type B (PCR) Not Detected (Not Detectd) RSV (PCR) Not Detected (Not Detectd) SARS-CoV-2 (PCR) Not Detected (Not Detectd) Disposition Clinical Impression: Dialysis catheter clot or failure, Pneumonia Disposition: HOME SELF-CARE Condition: Stable Instructions (If sedation given, give patient instructions): Pneumonia (ED) Additional Instructions: Please return to the Emergency Department if symptoms worsen or any other concerns. Prescriptions: Azithromycin [Zithromax Z Pack] 0 tab PO DIRECTED #6 tab Is patient prescribed a controlled substance at d/c from ED?: No Referrals: None,Stated [Primary Care Provider] - 1-2 days Time of Disposition: 14:04
== END 2023-04-09 15:26 | disposition home or self-care (01) ==
LOC: EC 08:57
DX: J18.9 Pneumonia, unspecified organism (principal); T82.9XXA Unspecified complication of cardiac and vascular prosthetic device, implant and graft, initial encounter; I48.91 Unspecified atrial fibrillation; E07.9 Disorder of thyroid, unspecified; Z79.890 Hormone replacement therapy; Z20.822 Contact with and (suspected) exposure to COVID-19; Z88.2 Allergy status to sulfonamides; Z88.7 Allergy status to serum and vaccine; Z91.041 Radiographic dye allergy status; Z88.5 Allergy status to narcotic agent; Z88.6 Allergy status to analgesic agent; Z88.8 Allergy status to other drugs, medicaments and biological substances
CPT/HCPCS: 36415; 80053; 83735; 84100; 85025; 87636; 71046; 99283; 96365; 96375; J0696; J2997

== ENCOUNTER 2023-04-25 08:38 | Inpatient (IN) | payer MEDICARE, OTHER ==
[2023-04-25] MEDS: ACETAMINOPHEN TAB 325 MG TAB PO STA (09:39)
[2023-04-25] MEDS: SODIUM CHLORIDE 0.9% 500 ML 500 ML IV ONE (09:40)
[2023-04-25 09:52] LABS: Basophils % (A) 0 %; Eosinophils % (A) 0 %; HCT 25.2 % (39.0-53.0); Lymphocytes # (A) 0.4 k/uL (1.0-4.8); Lymphocytes % (A) 4 %; MCH 31.2 pg (25.0-35.0); MCHC 31.8 g/dL (31.0-37.0); MCV 98.2 fL (80.0-100.0); Macrocytosis Slight; Mean Platelet Volume 8.6; Monocytes # (A) 0.6 k/uL (0-1.0); Monocytes % (A) 5 %; Neutrophils # (A) 9.9 k/uL (1.3-7.7); Neutrophils % (A) 90 %; Platelet Count 148 k/uL (150-450); RBC 2.57 m/uL (4.30-5.90); RDW 15.3 % (11.5-15.5); WBC 11.1 k/uL (3.8-10.6)
--- NOTE | 2023-04-25 09:53 | XR ---
EXAMINATION TYPE: XR chest 2V DATE OF EXAM: 04/25/2023 9:46 AM CLINICAL INDICATION:Male, 52 years old with history of Weakness; COMPARISON: Chest radiographs from 04/09/2023 TECHNIQUE: XR chest 2V Frontal and lateral views of the chest. FINDINGS: Lungs/Pleura: There is no evidence of pleural effusion, focal consolidation, or pneumothorax. Pulmonary vascularity: Unremarkable. Heart/mediastinum: Cardiomediastinal silhouette is enlarged and stable. Musculoskeletal: No acute osseous pathology. IMPRESSION: Low lung volumes with a generalized hazy appearance which could represent atelectasis versus pulmonar y edema correlate with serum BNP.
--- NOTE | 2023-04-25 09:58 | ED ---
Weakness HPI - General Chief complaint: Weakness Stated complaint: Post Dialysis Treatment Comp Time Seen by Provider: 04/25/23 09:36 Source: patient, family, RN notes reviewed Mode of arrival: wheelchair Limitations: no limitations - History of Present Illness Initial comments: 52-year-old male presents emergency department with family for evaluation of weakness. Patient has been having creasing weakness, elevated heart rate related to his A-fib. Patient states he is so weak that he cannot stand he has had recent pneumonia. Patient does dialysis at home 4 times a week. He denies any chest pain does complain of increasing abdominal pain. Patient does not make any urine. Patient also has had issues with recent anemia of 8.5. - Related Data Home Medications Medication Instructions Recorded Confirmed Levothyroxine Sodium [Synthroid] 50 mcg PO DAILY 12/18/17 04/25/23 Montelukast [Singulair] 10 mg PO HS 12/18/17 04/25/23 predniSONE 10 mg PO DAILY 04/25/21 04/25/23 Atorvastatin [Lipitor] 20 mg PO DAILY 10/15/22 04/25/23 Midodrine HCl [ProAmatine] 10 mg PO QID 10/15/22 04/25/23 allopurinoL 100 mg PO DAILY 10/15/22 04/25/23 calcitrioL 0.25 mcg PO SUTUWETHSA 10/15/22 04/25/23 calcitrioL 0.5 mcg PO MOFR 10/15/22 04/25/23 Fludrocortisone [Florinef] 0.1 mg PO DAILY 04/25/23 04/25/23 Omeprazole [PriLOSEC] 20 mg PO DAILY 04/25/23 04/25/23 Allergies Allergy/AdvReac Type Severity Reaction Status Date / Time adhesive tape Allergy Itching Verified 04/25/23 10:01 codeine Allergy Rash/Hives Verified 04/25/23 10:01 cyclobenzaprine Allergy Rash/Hives Verified 04/25/23 10:01 [From Flexeril] diphenhydramine Allergy Anaphylaxis Verified 04/25/23 10:01 [From Benadryl] hydromorphone [From Dilaudid] Allergy Rash/Hives Verified 04/25/23 10:01 hydroxyzine Allergy Anaphylaxis Verified 04/25/23 10:01 Iodinated Contrast Media Allergy Anaphylaxis Verified 04/25/23 10:01 [Iodinated Contrast- Oral and IV Dye] pantoprazole [From Protonix] Allergy Anaphylaxis Verified 04/25/23 10:01 Penicillins Allergy Rash/Hives Verified 04/25/23 10:01 potassium chloride Allergy Rash/Hives Verified 04/25/23 10:01 pregabalin [From Lyrica] Allergy Anaphylaxis Verified 04/25/23 10:01 sevelamer Allergy Rash/Hives Verified 04/25/23 10:01 warfarin [From Coumadin] Allergy Anaphylaxis Verified 04/25/23 10:01 acetaminophen [From Vicodin] AdvReac Nausea & Verified 04/25/23 10:01 Vomiting aripiprazole [From Abilify] AdvReac Abdominal Verified 04/25/23 10:01 Pain aztreonam AdvReac Unknown Verified 04/25/23 10:01 calcitriol AdvReac Unknown Verified 04/25/23 10:01 cefadroxil AdvReac Unknown Verified 04/25/23 10:01 enalapril AdvReac Unknown Verified 04/25/23 10:01 hydrocodone [From Vicodin] AdvReac Nausea & Verified 04/25/23 10:01 Vomiting Influenza Virus Vaccines AdvReac Unknown Verified 04/25/23 10:01 levofloxacin [From Levaquin] AdvReac Abdominal Verified 04/25/23 10:01 Pain meloxicam [From Mobic] AdvReac Abdominal Verified 04/25/23 10:01 Pain morphine AdvReac Unknown Verified 04/25/23 10:01 propoxyphene AdvReac Unknown Verified 04/25/23 10:01 Sulfa (Sulfonamide AdvReac Vomiting Verified 04/25/23 10:01 Antibiotics) tramadol AdvReac Unknown Verified 04/25/23 10:01 Review of Systems ROS Statement: Those systems with pertinent positive or pertinent negative responses have been documented in the HPI. ROS Other: All systems not noted in ROS Statement are negative. Past Medical History Past Medical History: Atrial Fibrillation, Dialysis, GERD/Reflux, Renal Disease, Thyroid Disorder Additional Past Medical History / Comment(s): dialysis M/W/T/TH/SAT, diverticulitis , blind, shingles in February History of Any Multi-Drug Resistant Organisms: None Reported Additional Past Surgical History / Comment(s): fistula placement , thyroidectomy Past Anesthesia/Blood Transfusion Reactions: Previous Problems w/ Anesthesia Additional Past Anesthesia/Blood Transfusion Reaction / Comment(s): Pt has his surgery done with local anesthetics d/t general anesthesia causing facial edema and difficulty waking. Past Psychological History: No Psychological Hx Reported Smoking Status: Never smoker Past Alcohol Use History: None Reported Past Drug Use History: None Reported - Past Family History Mother Family Medical History: Fibromyalgia, Osteoarthritis (OA) Additional Family Medical History / Comment(s): Lupus Family Family Medical History: No Reported History Additional Family Medical History / Comment(s): ETOH abuse General Exam Limitations: no limitations General appearance: alert, in no apparent distress Head exam: Present: atraumatic, normocephalic, normal inspection Eye exam: Present: normal appearance, PERRL, EOMI. Absent: scleral icterus, conjunctival injection, periorbital swelling ENT exam: Present: normal exam, normal oropharynx, mucous membranes moist Neck exam: Present: normal inspection. Absent: tenderness, meningismus, lymphadenopathy Respiratory exam: Present: normal lung sounds bilaterally. Absent: respiratory distress, wheezes, rales, rhonchi, stridor Cardiovascular Exam: Present: tachycardia, irregular rhythm. Absent: regular rate, normal rhythm GI/Abdominal exam: Present: soft, tenderness, normal bowel sounds. Absent: distended, guarding, rebound, rigid Back exam: Present: full ROM Course Vital Signs 04/25/23 04/25/23 04/25/23 08:41 09:20 09:21 Temperature 99.4 F Pulse Rate 140 H 131 H Respiratory 22 20 Rate Blood Pressure 78/41 91/58 91/58 O2 Sat by Pulse 97 95 94 L Oximetry 04/25/23 04/25/23 04/25/23 09:30 10:11 10:28 Temperature 98.6 F Pulse Rate 133 H Respiratory 18 Rate Blood Pressure 91/58 106/65 O2 Sat by Pulse 93 L 96 95 Oximetry 04/25/23 04/25/23 04/25/23 10:36 11:01 11:20 Temperature 98.4 F Pulse Rate 124 H 138 H Respiratory 20 18 Rate Blood Pressure 94/51 96/62 O2 Sat by Pulse 94 L 93 L Oximetry 04/25/23 04/25/23 04/25/23 11:30 12:00 12:30 Temperature Pulse Rate 123 H 117 H 116 H Respiratory 18 20 20 Rate Blood Pressure 96/62 94/60 85/60 O2 Sat by Pulse 95 92 L 94 L Oximetry 04/25/23 12:51 Temperature Pulse Rate 135 H Respiratory 20 Rate Blood Pressure 93/66 O2 Sat by Pulse 95 Oximetry EKG Findings - EKG Comments: EKG Findings:: EKG performed at 8: 57 A-fib with RVR rate of 133 QRS 99 QT/QTc 302/380 - EKG Results: EKG: interpreted by MOE Medical Decision Making - Medical Decision Making Was pt. sent in by a medical professional or institution (, PA, [facility], urgent care, hospital, or assisted...) When possible be specific @ -No Did you speak to anyone other than the patient for history (EMS, parent, family, police, friend...)? What history was obtained from this source @ -[ with many past medical history, significant current complaint Did you review nursing and triage notes (agree or disagree)? Why? @ -I reviewed and agree with nursing and triage notes Were old charts reviewed (outside hosp., previous admission, EMS record, old EKG, old radiological studies, urgent care reports/EKG's, assisted records)? Report findings @ -[Reviewed prior laboratory studies, MUNDO Differential Diagnosis (chest pain, altered mental status, abdominal pain women, abdominal pain men, vaginal bleeding, weakness, fever, dyspnea, syncope, headache, dizziness, GI bleed, back pain, seizure, CVA, palpatations, mental health, musculoskeletal)? @ -Differential Weakness: Hypoglycemia, shock, sepsis, hyponatremia, anemia, infection, SD, ETOH, adverse medicine reaction, overdose, stroke, this is not meant to be an all-inclusive list. Differential Chest Pain: Stable Angina, Unstable Angina, STEMI, NSTEMI Aortic Dissection, Pneumothorax, Musculoskeletal, Esophageal Spasm GERD, Cholecystitis, Pancreatitis, Zoster, this is not meant to be an all-inclusive list. EKG interpreted by me (3pts min.). @ -As above X-rays interpreted by me (1pt min.). @ -[Chest X shows mild pulmonary edema no definite infiltrate CT interpreted by me (1pt min.). @ -CT the abdomen pelvis shows mild stranding around kidney transplant, no other acute process U/S interpreted by me (1pt. min.). @ -[None done What testing was considered but not performed or refused? (CT, X-rays, U/S, labs)? Why? @ -None What meds were considered but not given or refused? Why? @ -None Did you discuss the management of the patient with other professionals (professionals i.e. , PA, [facility], lab, RT, psych nurse, social contact worker, genetics nurse, teacher, occupational medicine officer, housing case manager)? Give summary @ -Dr. rust for admission secondary to NSTEMI, weakness, hypotension and needing dialysis. We discussed about antibiotics secondary to fever and weakness though no clear source. Patient case discussed with Dr. Alexys hernandez iologist secondary to NSTEMI, troponin of 24 recommend IV fluids for blood pressure, heart rate control and medical management patient does not have current chest pain Was smoking cessation discussed for >3mins.? @ -No Was critical care preformed (if so, how long)? @ -[35 mins Were there social determinants of health that impacted care today? How? (Homelessness, low income, unemployed, alcoholism, drug addiction, transportation, low edu. Level, literacy, decrease access to med. care, long term, rehab)? @ -No Was there de-escalation of care discussed even if they declined (Discuss DNR or withdrawal of care, Hospice)? DNR status @ -No What co-morbidities impacted this encounter? (DM, HTN, Smoking, COPD, CAD, Cancer, CVA, ARF, Chemo, Hep., AIDS, mental health diagnosis, sleep apnea, morbid obesity)? @ -[End-stage renal disease Was patient admitted / discharged? Hospital course, mention meds given and route, prescriptions, significant lab abnormalities, going to OR and other pertinent info. @ -End it would patient presented for weakness, hypotension found to be in A-fib RVR. Patient was initially given fluid bolus secondary to blood pressure issues patient blood pressure did improve and he was no signs of overt failure/pulmonary edema patient was started on Cardizem at a low rate. I did contact admitting physician, equal opportunity director patient was started on heparin secondary to A-fib patient will have consult to nephrology for dialysis patient requires close monitoring patient does not have current signs of infection though did have fever blood cultures were drawn. We did discuss ordering antibiotics with hospitalist. Undiagnosed new problem with uncertain prognosis? @ -[No Drug Therapy requiring intensive monitoring for toxicity (Heparin, Nitro, Insulin, Cardizem)? @ -No Were any procedures done? @ -No Diagnosis/symptom? @ -NSTEMI, weakness, hypotension, end-stage renal disease Acute, or Chronic, or Acute on Chronic? @ -[Acute Uncomplicated (without systemic symptoms) or Complicated (systemic symptoms)? @ -Complicated Side effects of treatment? @ -[No Exacerbation, Progression, or Severe Exacerbation? @ -No Poses a threat to life or bodily function? How? (Chest pain, USA, SD, pneumonia, PE, COPD, DKA, ARF, appy, cholecystitis, CVA, Diverticulitis, Homicidal, Suicidal, threat to staff... and all critical care pts) @ -Yes ACS - Lab Data Result diagrams: 04/25/23 09:34 04/25/23 09:34 Lab Results 04/25/23 04/25/23 04/25/23 Range/Units 09:34 09:34 09:34 WBC 11.1 H (3.8-10.6) k/uL RBC 2.57 L (4.30-5.90) m/uL Hgb 8.0 L (13.0-17.5) gm/dL Hct 25.2 L (39.0-53.0) % MCV 98.2 (80.0-100.0) fL MCH 31.2 (25.0-35.0) pg MCHC 31.8 (31.0-37.0) g/dL RDW 15.3 (11.5-15.5) % Plt Count 148 L (150-450) k/uL MPV 8.6 Neutrophils % 90 % Lymphocytes % 4 % Monocytes % 5 % Eosinophils % 0 % Basophils % 0 % Neutrophils # 9.9 H (1.3-7.7) k/uL Lymphocytes # 0.4 L (1.0-4.8) k/uL Monocytes # 0.6 (0-1.0) k/uL Eosinophils # 0.0 (0-0.7) k/uL Basophils # 0.0 (0-0.2) k/uL Macrocytosis Slight PT 10.9 (10.0-12.5) sec INR 1.0 (<1.2) APTT 36.5 H (22.0-30.0) sec Sodium 131 L (137-145) mmol/L Potassium 4.0 (3.5-5.1) mmol/L Chloride 93 L (98-107) mmol/L Carbon Dioxide 23 (22-30) mmol/L Anion Gap 15 mmol/L BUN 64 H (9-20) mg/dL Creatinine 9.42 H* (0.66-1.25) mg/dL Est GFR (CKD-EPI)AfAm 7 (>60 ml/min/1.73 sqM) Est GFR (CKD-EPI)NonAf 6 (>60 ml/min/1.73 sqM) Glucose 92 (74-99) mg/dL Lactic Ac Sepsis Rflx Plasma Lactic Acid Cristobal (0.7-2.0) mmol/L Calcium 8.9 (8.4-10.2) mg/dL Phosphorus 5.3 H (2.5-4.5) mg/dL Magnesium 1.6 (1.6-2.3) mg/dL Total Bilirubin 0.6 (0.2-1.3) mg/dL AST 171 H (17-59) U/L ALT 36 (4-49) U/L Alkaline Phosphatase 79 (38-126) U/L Troponin I (0.000-0.034) ng/mL Total Protein 5.7 L (6.3-8.2) g/dL Albumin 3.5 (3.5-5.0) g/dL Influenza Type A (PCR) (Not Detectd) Influenza Type B (PCR) (Not Detectd) RSV (PCR) (Not Detectd) SARS-CoV-2 (PCR) (Not Detectd) 04/25/23 04/25/23 04/25/23 Range/Units 09:34 09:34 09:34 WBC (3.8-10.6) k/uL RBC (4.30-5.90) m/uL Hgb (13.0-17.5) gm/dL Hct (39.0-53.0) % MCV (80.0-100.0) fL MCH (25.0-35.0) pg MCHC (31.0-37.0) g/dL RDW (11.5-15.5) % Plt Count (150-450) k/uL MPV Neutrophils % % Lymphocytes % % Monocytes % % Eosinophils % % Basophils % % Neutrophils # (1.3-7.7) k/uL Lymphocytes # (1.0-4.8) k/uL Monocytes # (0-1.0) k/uL Eosinophils # (0-0.7) k/uL Basophils # (0-0.2) k/uL Macrocytosis PT (10.0-12.5) sec INR (<1.2) APTT (22.0-30.0) sec Sodium (137-145) mmol/L Potassium (3.5-5.1) mmol/L Chloride (98-107) mmol/L Carbon Dioxide (22-30) mmol/L Anion Gap mmol/L BUN (9-20) mg/dL Creatinine (0.66-1.25) mg/dL Est GFR (CKD-EPI)AfAm (>60 ml/min/1.73 sqM) Est GFR (CKD-EPI)NonAf (>60 ml/min/1.73 sqM) Glucose (74-99) mg/dL Lactic Ac Sepsis Rflx Plasma Lactic Acid Cristobal 2.2 H* (0.7-2.0) mmol/L Calcium (8.4-10.2) mg/dL Phosphorus (2.5-4.5) mg/dL Magnesium (1.6-2.3) mg/dL Total Bilirubin (0.2-1.3) mg/dL AST (17-59) U/L ALT (4-49) U/L Alkaline Phosphatase (38-126) U/L Troponin I 24.000 H* (0.000-0.034) ng/mL Total Protein (6.3-8.2) g/dL Albumin (3.5-5.0) g/dL Influenza Type A (PCR) Not Detected (Not Detectd) Influenza Type B (PCR) Not Detected (Not Detectd) RSV (PCR) Not Detected (Not Detectd) SARS-CoV-2 (PCR) Not Detected (Not Detectd) 04/25/23 Range/Units 10:28 WBC (3.8-10.6) k/uL RBC (4.30-5.90) m/uL Hgb (13.0-17.5) gm/dL Hct (39.0-53.0) % MCV (80.0-100.0) fL MCH (25.0-35.0) pg MCHC (31.0-37.0) g/dL RDW (11.5-15.5) % Plt Count (150-450) k/uL MPV Neutrophils % % Lymphocytes % % Monocytes % % Eosinophils % % Basophils % % Neutrophils # (1.3-7.7) k/uL Lymphocytes # (1.0-4.8) k/uL Monocytes # (0-1.0) k/uL Eosinophils # (0-0.7) k/uL Basophils # (0-0.2) k/uL Macrocytosis PT (10.0-12.5) sec INR (<1.2) APTT (22.0-30.0) sec Sodium (137-145) mmol/L Potassium (3.5-5.1) mmol/L Chloride (98-107) mmol/L Carbon Dioxide (22-30) mmol/L Anion Gap mmol/L BUN (9-20) mg/dL Creatinine (0.66-1.25) mg/dL Est GFR (CKD-EPI)AfAm (>60 ml/min/1.73 sqM) Est GFR (CKD-EPI)NonAf (>60 ml/min/1.73 sqM) Glucose (74-99) mg/dL Lactic Ac Sepsis Rflx Y Plasma Lactic Acid Cristobal (0.7-2.0) mmol/L Calcium (8.4-10.2) mg/dL Phosphorus (2.5-4.5) mg/dL Magnesium (1.6-2.3) mg/dL Total Bilirubin (0.2-1.3) mg/dL AST (17-59) U/L ALT (4-49) U/L Alkaline Phosphatase (38-126) U/L Troponin I (0.000-0.034) ng/mL Total Protein (6.3-8.2) g/dL Albumin (3.5-5.0) g/dL Influenza Type A (PCR) (Not Detectd) Influenza Type B (PCR) (Not Detectd) RSV (PCR) (Not Detectd) SARS-CoV-2 (PCR) (Not Detectd) Critical Care Time Critical Care Time: Yes Total Critical Care Time: 35 Disposition Clinical Impression: Weakness, ESRD on dialysis, NSTEMI (non-ST elevated myocardial infarction), Hypotension Disposition: ADMITTED IP TO THIS HOSP Condition: Critical Time of Disposition: 10:30
[2023-04-25 10:02] LABS: Partial Thromboplastin Time 36.5 sec (22.0-30.0); Prothrombin Time 10.9 sec (10.0-12.5)
[2023-04-25 10:08] LABS: ALT 36 U/L (4-49); AST 171 U/L (17-59); African American GFR (CKD) 7 (>60 ml/min/1.73 sqM); Albumin 3.5 g/dL (3.5-5.0); Alkaline Phosphatase 79 U/L (38-126); Anion Gap 15 mmol/L; Blood Urea Nitrogen 64 mg/dL (9-20); Calcium 8.9 mg/dL (8.4-10.2); Carbon Dioxide 23 mmol/L (22-30); Chloride 93 mmol/L (98-107); Glucose 92 mg/dL (74-99); Magnesium 1.6 mg/dL (1.6-2.3); Non-African American GFR(CKD) 6 (>60 ml/min/1.73 sqM); Phosphorus 5.3 mg/dL (2.5-4.5); Sodium 131 mmol/L (137-145); Total Bilirubin 0.6 mg/dL (0.2-1.3); Total Protein 5.7 g/dL (6.3-8.2)
--- NOTE | 2023-04-25 10:17 | CT ---
EXAMINATION TYPE: CT abdomen pelvis wo con CT DLP: 656.5 mGycm, Automated exposure control for dose reduction was used. DATE OF EXAM: 04/25/2023 10:03 AM COMPARISON: 05/04/2021 CLINICAL INDICATION:Male, 52 years old with history of pain, fever; generalized pain TECHNIQUE: Axial CT abdomen pelvis wo con;Sagittal and coronal reformats were created on a separate workstation. Contrast used: mL of , (none if empty) Oral contrast used: without Oral Contrast (none if empty) FINDINGS: LOWER CHEST: The heart is enlarged for size. There is basilar atelectasis and/or consolidation change s bilaterally. Retrocardiac opacifications in area of valve calcifications are present. ABDOMEN LIVER: Unremarkable GALLBLADDER AND BILE DUCTS: Unremarkable. PANCREAS: Unremarkable. SPLEEN: Unremarkable. ADRENAL GLANDS: Unremarkable. KIDNEYS AND URETERS: Atrophic kidneys with bilateral renal cysts. Right pelvis transplant kidney with dilated collecting system which is new from prior. There is infla mmation changes around the ureter which may be postsurgical given there is some inflammation around p rior CT 05/04/2021. PELVIS BLADDER: Unremarkable REPRODUCTIVE: Unremarkable. ABDOMEN & PELVIS STOMACH AND BOWEL: No evidence of bowel obstruction. Scattered colonic diverticula present. PERITONEUM/RETROPERITONEUM: No evidence of pneumoperitoneum or free fluid. VASCULATURE: Moderate atherosclerotic calcifications are present throughout the abdominal aorta and i ts branches. No evidence of aortic aneurysm. Right inferior approach central venous catheter with tip terminating in IVC. MUSCULOSKELETAL: No acute osseous abnormalities. Moderate disc degeneration changes are present throu ghout the thoracolumbar spine. Diffuse increase attenuation liver. LYMPH NODES: No gross evidence for lymphadenopathy. SOFT TISSUE/ABDOMINAL WALL: Fat-containing left inguinal hernia. Fat-containing umbilical hernia. IMPRESSION: 1. Right pelvis transplant kidney hydronephrosis with inflammation changes correlate with urinalysis . No obvious obstructing calculus visualized, correlate for stricture. 2. Atrophic [place] kidneys with multiple cysts and renal osteodystrophy changes 3. Colonic diverticulosis. 4. Bibasilar consolidation changes correlate for signs and symptoms of pneumonia. 5. Right inferior approach central venous catheter with tip in IVC.
[2023-04-25] MEDS ORDERED: HEPARIN SODIUM 1,000 UN/ML (10ML VL) IV PRN (11:08)
[2023-04-25] MEDS: DILTIAZEM DRIP BOLUS FROM BAG 1 MG SOLN IV ONE (11:09)
[2023-04-25] MEDS: DILTIAZEM 125 MG in SODIUM CHLORIDE 0.9% 100 ML IV SCH (11:10)
[2023-04-25] MEDS: HEPARIN SODIUM 1,000 UN/ML (10ML VL) IV ONE (11:35)
[2023-04-25] MEDS: HEPARIN SOD,PORK IN 0.45% NACL 25,000 UNIT in 0.45% NACL 1 250ML.BAG IV SCH (11:36)
--- NOTE | 2023-04-25 16:28 | P.HPIM ---
History of Present Illness H&P Date: 04/25/23 Patient is a 52-year-old male with history of ESRD on hemodialysis, atrial fibrillation not on anticoagulation, GERD, diverticulosis, hypothyroidism, aortic stenosis, blindness presenting with chest pain, epigastric pain, increasing weakness as well as elevated heart rate. He currently lives with his mother, who does his dialysis 4 times a week. She accesses the right groin central line for dialysis at home. He follows up with Dr. Aldridge. Over the last 2 days he has been complaining of sudden onset chest pain which went down into his epigastric region. It was sharp in nature. It was consistent, and slowly coming down. However at this morning he started noticing lightheadedness, and his heart rate was elevated, which made him come to the hospital. He was also feeling extremely fatigued during this time. He denies any smoking, alcohol use, illicit drug use. In the ED, temperature was 99.4, pulse 140, respiratory rate 22, blood pressure 78/41, saturating at 97% on room air. WBC 11.1, hemoglobin 8, platelet 148, sodium 131, chloride 93, BUN 64, creatinine 9.42, lactate 2.2, total bili 0.7, AST 171, ALT 36, ALP 79, troponin 24, respiratory viral panel negative. EKG shows atrial fibrillation with RVR. Chest x-ray shows pulmonary edema. CT abdomen pelvis shows right pelvis transplant kidney hydronephrosis with inflammation changes, bibasilar consolidation, colonic diverticulosis. Patient started on heparin drip as well as Cardizem drip. Cardiology already consulted. Nephrology also consulted. Pertinent positives and negatives as discussed in HPI, a complete review of systems was performed and all other systems are negative. Patient seen and examined at bedside. Vital signs reviewed General: nontoxic, no distress, appears at stated age, obese Derm: warm, dry Head: atraumatic, normocephalic, symmetric Eyes: Blindness ENT: Nose and ears atraumatic Neck: No thyromegaly, supple, large goiter Mouth: no lip lesion, mucus membranes moist Cardiovascular: S1S2 reg, systolic murmur, no edema Lungs: clear to auscultation bilateral, no rhonchi, no rales, no wheeze, no accessory muscle use Abdominal: soft, nontender to palpation, no guarding, no appreciable org anomegaly Ext: no gross muscle atrophy, muscle strength muscle strength 5 out of 5 in all 4 extremities, no contractures Neuro: CN II-XII grossly intact Psych: Alert, oriented, appropriate affect Assessment/Plan: Active: Acute NSTEMI Atrial fibrillation with RVR -Continue IV heparin drip, monitor for bleeding, monitor APTT -On IV Cardizem drip -Started on aspirin 81 mg, atorvastatin 40 mg -Continue telemetry -Cardiology consulted -Echocardiogram pending ESRD on hemodialysis Mild lactic acidosis -Nephrology consulted Leukocytosis Normocytic anemia, chronic Mild thrombocytopenia No active bleeding Repeat CBC tomorrow -Blood cultures pending Large goiter previous thyroidectomy -TSH pending -thyroid ultrasound pending Chronic: GERD Diverticulosis Hypothyroidism History of aortic stenosis Adrenal insufficiency The patient is admitted with an anticipated greater than 2 midnight stay as inpatient status for evaluation of NSTEMI. Surrogate decision-maker: MOM CODE STATUS: FC DVT prophylaxis: heparin gtt Anticipated discharge date: pending clinical course Anticipated discharge place: pending clinical course A total of 55 minutes was spent on the care of this complex patient more than 50% of the time was spent in counseling and care coordination. Past Medical History Past Medical History: Atrial Fibrillation, Dialysis, GERD/Reflux, Renal Disease, Seizure Disorder, Thyroid Disorder Additional Past Medical History / Comment(s): hemodialysis M/W,F,/S at home, diverticulitis,blind, shingles in February, recent falls, kidney transplant in 1998, CAPD when pt was 19y.o, anemia, around 7 grand mal seizures in 2021, nonactive L. arm dialysis graft, R. groin dialysis port. History of Any Multi-Drug Resistant Organisms: None Reported Additional Past Surgical History / Comment(s): fistula placement , thyroidectomy, kidney transplant Past Anesthesia/Blood Transfusion Reactions: Previous Problems w/ Anesthesia Additional Past Anesthesia/Blood Transfusion Reaction / Comment(s): Pt has his surgery done with local anesthetics d/t general anesthesia causing facial edema and difficulty waking. Blood transfusion had no issues Past Psychological History: No Psychological Hx Reported Additional Psychological History / Comment(s): Pt resides with his mother who is his caregiver. Pt ambulates without device/he memorizes where furniture is placed. Mother performs hemodialysis 4 days a week. 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 No home care. Smoking Status: Never smoker Past Alcohol Use History: None Reported Past Drug Use History: None Reported - Past Family History Mother Family Medical History: Fibromyalgia, Osteoarthritis (OA) Additional Family Medical History / Comment(s): Lupus Family Family Medical History: No Reported History Additional Family Medical History / Comment(s): ETOH abuse Medications and Allergies Home Medications Medication Instructions Recorded Confirmed Type Levothyroxine Sodium [Synthroid] 50 mcg PO DAILY 12/18/17 04/25/23 History Montelukast [Singulair] 10 mg PO HS 12/18/17 04/25/23 History predniSONE 10 mg PO DAILY 04/25/21 04/25/23 History Atorvastatin [Lipitor] 20 mg PO DAILY 10/15/22 04/25/23 History Midodrine HCl [ProAmatine] 10 mg PO QID 10/15/22 04/25/23 History allopurinoL 100 mg PO DAILY 10/15/22 04/25/23 History calcitrioL 0.25 mcg PO SUTUWETHSA 10/15/22 04/25/23 History calcitrioL 0.5 mcg PO MOFR 10/15/22 04/25/23 History Fludrocortisone [Florinef] 0.1 mg PO DAILY 04/25/23 04/25/23 History Omeprazole [PriLOSEC] 20 mg PO DAILY 04/25/23 04/25/23 History Allergies Allergy/AdvReac Type Severity Reaction Status Date / Time adhesive tape Allergy Itching Verified 04/25/23 10:01 codeine Allergy Rash/Hives Verified 04/25/23 10:01 cyclobenzaprine Allergy Rash/Hives Verified 04/25/23 10:01 [From Flexeril] diphenhydramine Allergy Anaphylaxis Verified 04/25/23 10:01 [From Benadryl] hydromorphone [From Dilaudid] Allergy Rash/Hives Verified 04/25/23 10:01 hydroxyzine Allergy Anaphylaxis Verified 04/25/23 10:01 Iodinated Contrast Media Allergy Anaphylaxis Verified 04/25/23 10:01 [Iodinated Contrast- Oral and IV Dye] pantoprazole [From Protonix] Allergy Anaphylaxis Verified 04/25/23 10:01 Penicillins Allergy Rash/Hives Verified 04/25/23 10:01 potassium chloride Allergy Rash/Hives Verified 04/25/23 10:01 pregabalin [From Lyrica] Allergy Anaphylaxis Verified 04/25/23 10:01 sevelamer Allergy Rash/Hives Verified 04/25/23 10:01 warfarin [From Coumadin] Allergy Anaphylaxis Verified 04/25/23 10:01 acetaminophen [From Vicodin] AdvReac Nausea & Verified 04/25/23 10:01 Vomiting aripiprazole [From Abilify] AdvReac Abdominal Verified 04/25/23 10:01 Pain aztreonam AdvReac Unknown Verified 04/25/23 10:01 calcitriol AdvReac Unknown Verified 04/25/23 10:01 cefadroxil AdvReac Unknown Verified 04/25/23 10:01 enalapril AdvReac Unknown Verified 04/25/23 10:01 hydrocodone [From Vicodin] AdvReac Nausea & Verified 04/25/23 10:01 Vomiting Influenza Virus Vaccines AdvReac Unknown Verified 04/25/23 10:01 levofloxacin [From Levaquin] AdvReac Abdominal Verified 04/25/23 10:01 Pain meloxicam [From Mobic] AdvReac Abdominal Verified 04/25/23 10:01 Pain morphine AdvReac Unknown Verified 04/25/23 10:01 propoxyphene AdvReac Unknown Verified 04/25/23 10:01 Sulfa (Sulfonamide AdvReac Vomiting Verified 04/25/23 10:01 Antibiotics) tramadol AdvReac Unknown Verified 04/25/23 10:01 Physical Exam Vitals: Vital Signs Temp Pulse Pulse Resp BP BP Pulse Ox 04/25/23 16:01 98 17 86/59 97 04/25/23 14:14 81/51 04/25/23 13:51 98.8 F 125 H 15 79/56 96 04/25/23 13:41 98.8 F 127 H 18 79/56 96 04/25/23 12:51 135 H 20 93/66 95 04/25/23 12:30 116 H 20 85/60 94 L 04/25/23 12:00 117 H 20 94/60 92 L 04/25/23 11:30 123 H 18 96/62 95 04/25/23 11:20 138 H 18 96/62 93 L 04/25/23 11:01 124 H 20 94/51 94 L 04/25/23 10:36 98.4 F 04/25/23 10:28 133 H 18 106/65 95 04/25/23 10:11 98.6 F 96 04/25/23 09:30 91/58 93 L 04/25/23 09:21 91/58 94 L 04/25/23 09:20 131 H 20 91/58 95 04/25/23 08:41 99.4 F 140 H 22 78/41 97 Intake and Output 04/25/23 04/25/23 04/25/23 06:59 14:59 22:59 Output Total 0 Balance 0 Output: Urine 0 Other: # Voids 1 # Bowel Movements 1 Weight 81.647 kg Results CBC & Chem 7: 04/25/23 09:34 04/25/23 09:34 Labs: Abnormal Lab Results - Last 24 Hours (Table) 04/25/23 04/25/23 04/25/23 Range/Units 09:34 09:34 09:34 WBC 11.1 H (3.8-10.6) k/uL RBC 2.57 L (4.30-5.90) m/uL Hgb 8.0 L (13.0-17.5) gm/dL Hct 25.2 L (39.0-53.0) % Plt Count 148 L (150-450) k/uL Neutrophils # 9.9 H (1.3-7.7) k/uL Lymphocytes # 0.4 L (1.0-4.8) k/uL APTT 36.5 H (22.0-30.0) sec Sodium 131 L (137-145) mmol/L Chloride 93 L (98-107) mmol/L BUN 64 H (9-20) mg/dL Creatinine 9.42 H* (0.66-1.25) mg/dL Plasma Lactic Acid Cristobal (0.7-2.0) mmol/L Phosphorus 5.3 H (2.5-4.5) mg/dL AST 171 H (17-59) U/L Troponin I (0.000-0.034) ng/mL Total Protein 5.7 L (6.3-8.2) g/dL 04/25/23 04/25/23 04/25/23 Range/Units 09:34 09:34 12:28 WBC (3.8-10.6) k/uL RBC (4.30-5.90) m/uL Hgb (13.0-17.5) gm/dL Hct (39.0-53.0) % Plt Count (150-450) k/uL Neutrophils # (1.3-7.7) k/uL Lymphocytes # (1.0-4.8) k/uL APTT (22.0-30.0) sec Sodium (137-145) mmol/L Chloride (98-107) mmol/L BUN (9-20) mg/dL Creatinine (0.66-1.25) mg/dL Plasma Lactic Acid Cristobal 2.2 H* (0.7-2.0) mmol/L Phosphorus (2.5-4.5) mg/dL AST (17-59) U/L Troponin I 24.000 H* 22.500 H* (0.000-0.034) ng/mL Total Protein (6.3-8.2) g/dL Thrombosis Risk Factor Assmnt - Choose All That Apply Each Factor Represents 1 point: Age 41-60 years Thrombosis Risk Factor Assessment Total Risk Factor Score: 1 Thrombosis Risk Factor Assessment Level: Low Risk
[2023-04-25] MEDS: ATORVASTATIN 40 MG TAB PO SCH (16:53)
[2023-04-25] MEDS: ASPIRIN 81 MG PO SCH (16:53)
--- NOTE | 2023-04-25 16:58 | US ---
EXAMINATION TYPE: US thyroid st tissue head/neck DATE OF EXAM: 04/25/2023 COMPARISON: NONE CLINICAL INDICATION: Male, 52 years old with history of goiter; Goiter per order. Patient takes levot hyroxine. Patient states he had thyroid nodules removed when he was younger. GLAND SIZE: Right Lobe: 4.8 x 2.2 x 1.9 cm Overall Parenchyma: heterogenous Left Lobe: 4.6 x 1.8 x 1.7 cm Overall Parenchyma: heterogenous Isthmus Thickness: 0.25 cm NODULES RIGHT: # of nodules measured on right: 0 LEFT: # of nodules measured on left: 1 1. 1.4 X 1.0 x 0.7 cm, lower lateral, mixed solid and cystic lesion, anechoic nodule, which is wide r than tall, with smooth margins, with echogenic foci. Prior size: No prior ISTHMUS: # of nodules measured in the isthmus: 0 Bilateral neck scanned, no evidence of lymphadenopathy. IMPRESSION: There is a 1.4 cm left thyroid nodule compatible with a TR 2 nodule. 2017 ACR TI-RADS LEVEL: TR-RADS 2 - Not Suspicious: No FNA *Highest TI-RADS level nodule reported
[2023-04-25] MEDS ORDERED: MIDODRINE 5 MG TAB PO SCH (18:00)
--- NOTE | 2023-04-25 18:05 | CA ---
Transthoracic Echo Report Name: Morgan Clark Age: 52 Gender: M : 1970 Exam Date: 04/25/2023 14:48 Exam Location: [facility] Ht (in): 69 Wt (lb): 180 Ordering Physician: Benjamín Riley PAC Attending/Referring Phys: Manufacturing Technology Professor Edison iGron RDCS Procedure CPT: Indications: nstemi Cardiac Hx: Technical Quality: Fair Contrast 1: Total Dose (mL): Contrast 2: Total Dose (mL): MEASUREMENTS (Male / Female) Normal Values 2D ECHO LV Diastolic Diameter PLAX 4.9 cm 4.2 - 5.9 / 3.9 - 5.3 cm LV Systolic Diameter PLAX 3.8 cm IVS Diastolic Thickness 1.3 cm 0.6 - 1.0 / 0.6 - 0.9 cm LVPW Diastolic Thickness 1.0 cm 0.6 - 1.0 / 0.6 - 0.9 cm LV Relative Wall Thickness 0.5 LVOT Diameter 1.8 cm Aortic Root Diameter 3.1 cm LA Systolic Diameter LX 4.8 cm 3.0 - 4.0 / 2.7 - 3.8 cm DOPPLER AV Peak Velocity 379.1 cm/s AV Peak Gradient 57.5 mmHg AV Mean Velocity 261.0 cm/s AV Mean Gradient 30.6 mmHg AV Velocity Time Integral 66.2 cm LVOT Peak Velocity 75.2 cm/s LVOT Peak Gradient 2.3 mmHg LVOT Velocity Time Integral 13.8 cm LVOT Stroke Volume 36.9 cm??? LVOT Stroke Volume Index 18.7 ml/m??? AV Area Cont Eq vti 0.6 cm??? AV Area Cont Eq pk 0.5 cm??? MR Peak Velocity 480.2 cm/s MR Peak Gradient 92.2 mmHg Mitral E Point Velocity 132.9 cm/s Mitral A Point Velocity 27.9 cm/s Mitral E to A Ratio 4.8 MV Deceleration Time 151.1 ms MV E' Velocity 12.3 cm/s Mitral E to MV E' Ratio 10.8 TR Peak Velocity 237.1 cm/s TR Peak Gradient 22.5 mmHg PV Peak Velocity 51.1 cm/s PV Peak Gradient 1.0 mmHg FINDINGS Left Ventricle Normal left ventricular systolic function with no obvious regional wall motion abnormalities. Left ventricular cavity size normal. . Left ventricular ejection fraction is estimated at 55-60 %. Mild left ventricular hypertrophy. Right Ventricle Mild right ventricular dilatation. Right Atrium Right atrium not well visualized. Left Atrium Moderately increased left atrial diameter. Mitral Valve Moderate mitral annular calcification. Mild to moderate mitral regurgitation. Aortic Valve Moderate aortic stenosis with a peak gradient of 57 mmHg and a mean gradient of 31 mmHg. severely calcified aortic valve. Mild aortic regurgitation Tricuspid Valve Mild tricuspid regurgitation.structurally normal tricuspid valve. Pulmonic Valve Pulmonic valve not well visualized. Pericardium No pericardial effusion. Aorta Normal size aortic root and proximal ascending aorta. CONCLUSIONS 1. Normal left ventricle size and systolic function 2. Moderate mitral annulus calcification with [id number] mitral regurgitation 3. Severely calcified aortic valve with a mean gradient of 31 mm of mercury and mild aortic regurgitation 4. Mild tricuspid regurgitation Previewed by: Dr. Stanislaw Velázquez MD (Electronically Signed) Final Date: 25 April 2023 18:04
[2023-04-25] MEDS: MIDODRINE 5 MG TAB PO SCH (18:22)
[2023-04-25] MEDS: MONTELUKAST 10 MG TAB PO SCH (20:03)
[2023-04-25] MEDS: FAMOTIDINE 20 MG TAB PO SCH (20:03)
[2023-04-26] MEDS: LEVOTHYROXINE 50 MCG TAB PO SCH (04:03)
[2023-04-26 06:02] LABS: INR 0.9 (<1.2); Prothrombin Time 10.3 sec (10.0-12.5)
[2023-04-26 06:04] LABS: Basophils % (A) 0 %; Eosinophils % (A) 0 %; HCT 21.6 % (39.0-53.0); Hypochromasia Slight; Lymphocytes # (A) 0.8 k/uL (1.0-4.8); Lymphocytes % (A) 9 %; MCH 31.4 pg (25.0-35.0); MCHC 31.5 g/dL (31.0-37.0); MCV 99.5 fL (80.0-100.0); Macrocytosis Slight; Mean Platelet Volume 8.6; Monocytes # (A) 0.3 k/uL (0-1.0); Monocytes % (A) 4 %; Neutrophils # (A) 7.4 k/uL (1.3-7.7); Neutrophils % (A) 85 %; Platelet Count 132 k/uL (150-450); RBC 2.17 m/uL (4.30-5.90); RDW 15.2 % (11.5-15.5); WBC 8.6 k/uL (3.8-10.6)
[2023-04-26 06:05] LABS: HGB 6.8 gm/dL (13.0-17.5)
[2023-04-26 06:11] LABS: ALT 44 U/L (4-49); AST 140 U/L (17-59); African American GFR (CKD) 6 (>60 ml/min/1.73 sqM); Albumin 2.8 g/dL (3.5-5.0); Alkaline Phosphatase 73 U/L (38-126); Anion Gap 10 mmol/L; Blood Urea Nitrogen 78 mg/dL (9-20); Calcium 8.4 mg/dL (8.4-10.2); Carbon Dioxide 25 mmol/L (22-30); Chloride 97 mmol/L (98-107); Glucose 75 mg/dL (74-99); Non-African American GFR(CKD) 5 (>60 ml/min/1.73 sqM); Potassium 3.8 mmol/L (3.5-5.1); Sodium 132 mmol/L (137-145); Total Bilirubin 0.5 mg/dL (0.2-1.3)
[2023-04-26] MEDS: predniSONE 10 MG TAB PO SCH (10:29)
[2023-04-26] MEDS: FLUDROCORTISONE 0.1 MG TAB PO SCH (10:29)
[2023-04-26] MEDS: OMEPRAZOLE 20 MG PO SCH (10:30)
[2023-04-26] MEDS: allopurinoL 100 MG TAB PO SCH (10:30)
--- NOTE | 2023-04-26 10:37 | P.NPCON ---
History of Present Illness - Reason for Consult end stage renal disease - History of Present Illness Patient is a 52-year-old male with end-stage renal disease maintained on home hemodialysis. Patient is admitted to the hospital with complaints of chest pain which started about 2 days ago. It has been sharp on and off. Patient also noted increased weakness and lightheadedness. Workup revealed elevated troponins at 22.5. Hemoglobin was 8.0 on admission and decreased to 6.8 today. Blood pressure has been low with systolic blood pressure in the 70s and 80s. No active bleeding noted. No complaints of shortness of breath. Review of Systems Assessment HPI Past Medical History Past Medical History: Atrial Fibrillation, Dialysis, GERD/Reflux, Renal Disease, Seizure Disorder, Thyroid Disorder Additional Past Medical History / Comment(s): hemodialysis M/W,F,/S at home, diverticulitis,blind, shingles in February, recent falls, kidney transplant in 1998, CAPD when pt was 19y.o, anemia, around 7 grand mal seizures in 2021, nonactive L. arm dialysis graft, R. groin dialysis port. History of Any Multi-Drug Resistant Organisms: None Reported Additional Past Surgical History / Comment(s): fistula placement , thyroidectomy, kidney transplant Past Anesthesia/Blood Transfusion Reactions: Previous Problems w/ Anesthesia Additional Past Anesthesia/Blood Transfusion Reaction / Comment(s): Pt has his surgery done with local anesthetics d/t general anesthesia causing facial edema and difficulty waking. Blood transfusion had no issues Past Psychological History: No Psychological Hx Reported Additional Psychological History / Comment(s): Pt resides with his mother who is his caregiver. Pt ambulates without device/he memorizes where furniture is placed. Mother performs hemodialysis 4 days a week. 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 No home care. Smoking Status: Never smoker Past Alcohol Use History: None Reported Past Drug Use History: None Reported - Past Family History Mother Family Medical History: Fibromyalgia, Osteoarthritis (OA) Additional Family Medical History / Comment(s): Lupus Family Family Medical History: No Reported History Additional Family Medical History / Comment(s): ETOH abuse Medications and Allergies Home Medications Medication Instructions Recorded Confirmed Type Levothyroxine Sodium [Synthroid] 50 mcg PO DAILY 12/18/17 04/25/23 History Montelukast [Singulair] 10 mg PO HS 12/18/17 04/25/23 History predniSONE 10 mg PO DAILY 04/25/21 04/25/23 History Atorvastatin [Lipitor] 20 mg PO DAILY 10/15/22 04/25/23 History Midodrine HCl [ProAmatine] 10 mg PO QID 10/15/22 04/25/23 History allopurinoL 100 mg PO DAILY 10/15/22 04/25/23 History calcitrioL 0.25 mcg PO SUTUWETHSA 10/15/22 04/25/23 History calcitrioL 0.5 mcg PO MOFR 10/15/22 04/25/23 History Fludrocortisone [Florinef] 0.1 mg PO DAILY 04/25/23 04/25/23 History Omeprazole [PriLOSEC] 20 mg PO DAILY 04/25/23 04/25/23 History Allergies Allergy/AdvReac Type Severity Reaction Status Date / Time adhesive tape Allergy Itching Verified 04/25/23 10:01 codeine Allergy Rash/Hives Verified 04/25/23 10:01 cyclobenzaprine Allergy Rash/Hives Verified 04/25/23 10:01 [From Flexeril] diphenhydramine Allergy Anaphylaxis Verified 04/25/23 10:01 [From Benadryl] hydromorphone [From Dilaudid] Allergy Rash/Hives Verified 04/25/23 10:01 hydroxyzine Allergy Anaphylaxis Verified 04/25/23 10:01 Iodinated Contrast Media Allergy Anaphylaxis Verified 04/25/23 10:01 [Iodinated Contrast- Oral and IV Dye] pantoprazole [From Protonix] Allergy Anaphylaxis Verified 04/25/23 10:01 Penicillins Allergy Rash/Hives Verified 04/25/23 10:01 potassium chloride Allergy Rash/Hives Verified 04/25/23 10:01 pregabalin [From Lyrica] Allergy Anaphylaxis Verified 04/25/23 10:01 sevelamer Allergy Rash/Hives Verified 04/25/23 10:01 warfarin [From Coumadin] Allergy Anaphylaxis Verified 04/25/23 10:01 acetaminophen [From Vicodin] AdvReac Nausea & Verified 04/25/23 10:01 Vomiting aripiprazole [From Abilify] AdvReac Abdominal Verified 04/25/23 10:01 Pain aztreonam AdvReac Unknown Verified 04/25/23 10:01 calcitriol AdvReac Unknown Verified 04/25/23 10:01 cefadroxil AdvReac Unknown Verified 04/25/23 10:01 enalapril AdvReac Unknown Verified 04/25/23 10:01 hydrocodone [From Vicodin] AdvReac Nausea & Verified 04/25/23 10:01 Vomiting Influenza Virus Vaccines AdvReac Unknown Verified 04/25/23 10:01 levofloxacin [From Levaquin] AdvReac Abdominal Verified 04/25/23 10:01 Pain meloxicam [From Mobic] AdvReac Abdominal Verified 04/25/23 10:01 Pain morphine AdvReac Unknown Verified 04/25/23 10:01 propoxyphene AdvReac Unknown Verified 04/25/23 10:01 Sulfa (Sulfonamide AdvReac Vomiting Verified 04/25/23 10:01 Antibiotics) tramadol AdvReac Unknown Verified 04/25/23 10:01 Physical Exam Vitals: Vital Signs Temp Pulse Pulse Resp BP BP Pulse Ox 04/26/23 07:47 96 04/26/23 05:27 112/74 04/26/23 04:00 85 17 76/45 96 04/25/23 23:33 103 H 17 92/67 95 04/25/23 20:00 97.7 F 105 H 17 97/62 95 04/25/23 16:01 98 17 86/59 97 04/25/23 14:14 81/51 04/25/23 13:51 98.8 F 125 H 15 79/56 96 04/25/23 13:41 98.8 F 127 H 18 79/56 96 04/25/23 12:51 135 H 20 93/66 95 04/25/23 12:30 116 H 20 85/60 94 L 04/25/23 12:00 117 H 20 94/60 92 L 04/25/23 11:30 123 H 18 96/62 95 04/25/23 11:20 138 H 18 96/62 93 L 04/25/23 11:01 124 H 20 94/51 94 L 04/25/23 10:36 98.4 F Intake and Output 04/25/23 04/26/23 04/26/23 22:59 06:59 14:59 Intake Total 61.891 601.238 Balance 61.891 601.238 Intake: Intake, IV Titration 61.891 61.238 Amount Heparin Sod,Pork in 0.45% 61.891 61.238 NaCl 25,000 unit In 0.45 % NaCl 1 250ml.bag @ 12 UNITS/KG/HR 9.798 mls/hr IV .Q24H BASIL Rx#: [id number] Oral 540 Other: # Voids 2 Patient is comfortable awake not in any acute distress Examination of the heart S1 and S2 Examination of the lungs bilateral breath sounds are heard Abdomen is soft nontender Examination of lower extremities shows no significant edema. Chronic skin russell nges noted. Right femoral tunneled dialysis catheter. Results - Lab Results Most recent lab results Calcium 8.4 mg/dL (8.4-10.2) 04/26/23 05:28 Phosphorus 5.3 mg/dL (2.5-4.5) H 04/25/23 09:34 Magnesium 1.6 mg/dL (1.6-2.3) 04/25/23 09:34 04/26/23 05:28 04/26/23 05:28 Assessment and Plan Assessment: 1. End-stage renal disease on home hemodialysis via right femoral tunneled catheter. 2. Acute LA maintained on IV heparin 3. Anemia with no active bleeding noted. Patient will be maintained on Aranesp. Iron profile will be ordered. Packed RBCs transfusion recommended. 4. History of failed renal transplant currently on hemodialysis 5. Chronic hypotension maintained on midodrine, Florinef and prednisone 6. CK D mineral bone disorder maintained on calcitriol Plan: Hemodialysis today Continue with midodrine, Florinef and prednisone Recommend packed RBCs transfusion Check iron profile Add Aranesp Increase prednisone if hypotension persists post packed RBCs transfusion. Next Thank you for the consultation. We will continue to follow the patient with you during his hospitalization.
--- NOTE | 2023-04-26 11:32 | P.PN ---
Subjective Progress Note Date: 04/26/23 Pt repors pain has improved. HRs are better controlle.d Hgb dropped to 6.8, PRBC ordered. Gen: In NAD, non-toxic HEENT: normocephalic, atraumatic, hearing acuity is intant, mucous membranes moist CVS: perfusing all extremities well, no pitting edema, Respiratory: symmetric chest expansion, no accessory muscle use, GI: soft, NTTP, ND, : no suprapubic tenderness, no CVA tenderness MSK/Derm: no rashes, cyanosis Neuro: CN II-XII intact, no motor weakness, Psych: cooperative, euthymic mood, judgment and insight is intact Hospital Course: Patient is a 52-year-old male with history of ESRD on hemodialysis, atrial fibrillation not on anticoagulation, GERD, diverticulosis, hypothyroidism, aortic stenosis, blindness presenting with chest pain, epigastric pain, increasing weakness as well as elevated heart rate. In the ED, temperature was 99.4, pulse 140, respiratory rate 22, blood pressure 78/41, saturating at 97% on room air. WBC 11.1, hemoglobin 8, platelet 148, sodium 131, chloride 93, BUN 64, creatinine 9.42, lactate 2.2, total bili 0.7, AST 171, ALT 36, ALP 79, troponin 24, respiratory viral panel negative. EKG shows atrial fibrillation with RVR. Chest x-ray shows pulmonary edema. CT abdomen pelvis shows right pelvis transplant kidney hydronephrosis with inflammation changes, bibasilar consolidation, colonic diverticulosis. Patient started on heparin drip as well as Cardizem drip. Cardiology already consulted. Nephrology also consulted. Assessment/Plan: Active: Acute NSTEMI Atrial fibrillation with RVR -Continue IV heparin drip, monitor for bleeding, monitor APTT -On IV Cardizem drip -Continue aspirin 81 mg, atorvastatin 40 mg -Continue telemetry -Cardiology consulted -Echocardiogram reviewed, normal EF, calcified AV with gradient of 31mmHg ESRD on hemodialysis Anemia of Chronic Disease Mild lactic acidosis -Nephrology consulted -Ordered 1U PRBC Leukocytosis Mild thrombocytopenia -Repeat CBC tomorrow -Blood cultures pending Large goiter previous thyroidectomy -TSH 1.6 -thyroid ultrasound with 1.4cm TR2 nodule Chronic: GERD Diverticulosis Hypothyroidism History of aortic stenosis Adrenal insufficiency The patient is admitted with an anticipated greater than 2 midnight stay as inpatient status for evaluation of NSTEMI. Surrogate decision-maker: MOM CODE STATUS: FC DVT prophylaxis: heparin gtt Anticipated discharge date: pending clinical course Anticipated discharge place: pending clinical course A total of 55 minutes was spent on the care of this complex patient more than 50% of the time was spent in counseling and care coordination. Objective - Vital Signs Vital signs: Vital Signs Temp 97.7 F 04/25/23 20:00 Pulse 85 04/26/23 04:00 Resp 17 04/26/23 04:00 BP 112/74 04/26/23 05:27 Pulse Ox 96 04/26/23 07:47 FiO2 Intake & Output 04/25/23 04/26/23 04/26/23 18:59 06:59 18:59 Intake Total 61.891 601.238 Output Total 0 Balance 61.891 601.238 Weight 81.647 kg Intake: Intake, IV Titration 61.891 61.238 Amount Heparin Sod,Pork in 0.45% 61.891 61.238 NaCl 25,000 unit In 0.45 % NaCl 1 250ml.bag @ 12 UNITS/KG/HR 9.798 mls/hr IV .Q24H [facility] Rx#: [id number] Oral 540 Output: Urine 0 Other: # Voids 2 # Bowel Movements 1 - Labs CBC & Chem 7: 04/26/23 05:28 04/26/23 05:28 Labs: Abnormal Lab Results - Last 24 Hours (Table) 04/25/23 04/25/23 04/25/23 Range/Units 12:28 16:40 16:40 RBC (4.30-5.90) m/uL Hgb (13.0-17.5) gm/dL Hct (39.0-53.0) % Plt Count (150-450) k/uL Lymphocytes # (1.0-4.8) k/uL APTT 84.7 H (22.0-30.0) sec Sodium (137-145) mmol/L Chloride (98-107) mmol/L BUN (9-20) mg/dL Creatinine (0.66-1.25) mg/dL AST (17-59) U/L Troponin I 22.500 H* 22.300 H* (0.000-0.034) ng/mL Total Protein (6.3-8.2) g/dL Albumin (3.5-5.0) g/dL Crossmatch 04/26/23 04/26/23 04/26/23 Range/Units 00:12 05:28 05:28 RBC 2.17 L (4.30-5.90) m/uL Hgb 6.8 L* (13.0-17.5) gm/dL Hct 21.6 L (39.0-53.0) % Plt Count 132 L (150-450) k/uL Lymphocytes # 0.8 L (1.0-4.8) k/uL APTT 50.6 H (22.0-30.0) sec Sodium 132 L (137-145) mmol/L Chloride 97 L (98-107) mmol/L BUN 78 H (9-20) mg/dL Creatinine 10.58 H* (0.66-1.25) mg/dL AST 140 H (17-59) U/L Troponin I (0.000-0.034) ng/mL Total Protein 5.0 L (6.3-8.2) g/dL Albumin 2.8 L (3.5-5.0) g/dL Crossmatch 04/26/23 Range/Units 09:24 RBC (4.30-5.90) m/uL Hgb (13.0-17.5) gm/dL Hct (39.0-53.0) % Plt Count (150-450) k/uL Lymphocytes # (1.0-4.8) k/uL APTT (22.0-30.0) sec Sodium (137-145) mmol/L Chloride (98-107) mmol/L BUN (9-20) mg/dL Creatinine (0.66-1.25) mg/dL AST (17-59) U/L Troponin I (0.000-0.034) ng/mL Total Protein (6.3-8.2) g/dL Albumin (3.5-5.0) g/dL Crossmatch See Detail
[2023-04-26] MEDS: METOPROLOL TARTRATE 25 MG TAB PO SCH ×2 (13:01→14:10)
[2023-04-26] MEDS: DARBEPOETIN ALFA 60 MCG/0.3 ML SYRINGE SQ SCH (14:07)
--- NOTE | 2023-04-26 14:12 | P.CRDCN ---
History of Present Illness History of present illness: HISTORY OF PRESENTING ILLNESS This is a pleasant 52-year-old male past medical history significant for end-stage renal disease status post kidney transplantation on hemodialysis, aortic stenosis, hypertension, paroxysmal atrial fibrillation not on anticoagulation secondary to issues with bleeding surrounding dialysis catheter and obesity. He follows in the office with aidan Serrano, has not been seen since 2021. We have been asked to see in consultation for elevated troponin. He presented to ER with weakness and fatigue. His mother states he was having slurred speech and unable to communicate with her appropriately. He is on HD. He has no been on anti-coagulation do to frequent bleeding at the site of his dialysis catheter. His mom is at the bedside and states over the previous 2 months they have been struggling with anemia, hemoglobin continues to drop. This morning is 6.8. On arrival he was A. fib with RVR heart rate of 133. He was started on heparin and Cardizem infusions. This morning his rate is in the 80s. He had issues with hypotension and the Cardizem was held. Troponins were elevated however flat, echo reveals EF 55-60 with no wall motion abnormalities, moderate aortic stenosis with a mean of 31 mmHg. Most recent stress test performed in the office August 2021 was negative for reversible ischemia. DIAGNOSTICS EKG reveals atrial fib with rapid ventricular rate heart rate 133. Telemetry tracings indicate atrial fib. Chest xray low lung volumes with generalized hazy, could represent atelectasis versus pulmonary edema. Laboratory reviewed, WBC 8.6, hemoglobin 6.8, platelets 132, potassium 3.8, creatinine 10.5, troponin 24, 22.5, 22.3, magnesium 1.6 and TSH 1.6. Current cardiac medications include atorvastatin 20 mg daily, Florinef 0.1 mg daily, midodrine 10 mg every 6 hours. REVIEW OF SYSTEMS At the time of my exam: CONSTITUTIONAL: Denies fever or chills. CARDIOVASCULAR: Complains of pleuritic chest pain. Denies exertional chest pain, shortness of breath, orthopnea, PND or palpitations. RESPIRATORY: Denies cough. GASTROINTESTINAL: Complains of diarrhea. Denies abdominal pain, constipation, nausea or vomiting. MUSCULOSKELETAL: Denies myalgias. NEUROLOGIC: Denies numbness, tingling, headache or weakness. ENDOCRINE: Complains of fatigue. Denies weight change. Does not make urine. GENITOURINARY: Denies burning, hematuria or urgency with micturation. HEMATOLOGIC: Complains of bright red blood per the penis at times PHYSICAL EXAMINATION Blood pressure 112/74 heart rate 85 afebrile and maintaining oxygen saturation on room air. CONSTITUTIONAL: No apparent distress. Obese. HEENT: Head is normocephalic. Pupils are equal, round. Sclerae anicteric. Mucous membranes of the mouth are moist. No JVD. No carotid bruit. CHEST EXAMINATION: Lungs are clear to auscultation. No chest wall tenderness is noted on palpation or with deep breathing. HEART EXAMINATION: Irregular rate and rhythm. S1, S2 heard. No murmurs, gallops or rub. ABDOMEN: Soft, nontender. EXTREMITIES: 2+ peripheral pulses, trace lower extremity edema and no calf tenderness. NEUROLOGIC EXAMINATION: Patient is awake, alert and oriented x3. ASSESSMENT Type II MD secondary to oxygen supply demand mismatch with anemia and chronic renal failure End-stage renal disease on hemodialysis status post transplantation Persistent atrial fibrillation with rapid ventricular rate unable to take long- term anticoagulation PLAN Discontinue IV heparin secondary to anemia. Start subcu heparin. Discontinue Cardizem and start metoprolol 25 mg twice a day. Further recommendations to follow based upon clinical course. Thank you kindly for this consultation. Nurse Practitioner note has been reviewed, I agree with a documented findings and plan of care. Patient was seen and examined. Past Medical History Past Medical History: Atrial Fibrillation, Dialysis, GERD/Reflux, Renal Disease, Seizure Disorder, Thyroid Disorder Additional Past Medical History / Comment(s): hemodialysis M/W,F,/S at home, diverticulitis,blind, shingles in February, recent falls, kidney transplant in 1998, CAPD when pt was 19y.o, anemia, around 7 grand mal seizures in 2021, nonactive L. arm dialysis graft, R. groin dialysis port. History of Any Multi-Drug Resistant Organisms: None Reported Additional Past Surgical History / Comment(s): fistula placement , th yroidectomy, kidney transplant Past Anesthesia/Blood Transfusion Reactions: Previous Problems w/ Anesthesia Additional Past Anesthesia/Blood Transfusion Reaction / Comment(s): Pt has his surgery done with local anesthetics d/t general anesthesia causing facial edema and difficulty waking. Blood transfusion had no issues Past Psychological History: No Psychological Hx Reported Additional Psychological History / Comment(s): Pt resides with his mother who is his caregiver. Pt ambulates without device/he memorizes where furniture is placed. Mother performs hemodialysis 4 days a week. 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 No home care. Smoking Status: Never smoker Past Alcohol Use History: None Reported Past Drug Use History: None Reported - Past Family History Mother Family Medical History: Fibromyalgia, Osteoarthritis (OA) Additional Family Medical History / Comment(s): Lupus Family Family Medical History: No Reported History Additional Family Medical History / Comment(s): ETOH abuse Medications and Allergies Home Medications Medication Instructions Recorded Confirmed Type Levothyroxine Sodium [Synthroid] 50 mcg PO DAILY 12/18/17 04/25/23 History Montelukast [Singulair] 10 mg PO HS 12/18/17 04/25/23 History predniSONE 10 mg PO DAILY 04/25/21 04/25/23 History Atorvastatin [Lipitor] 20 mg PO DAILY 10/15/22 04/25/23 History Midodrine HCl [ProAmatine] 10 mg PO QID 10/15/22 04/25/23 History allopurinoL 100 mg PO DAILY 10/15/22 04/25/23 History calcitrioL 0.25 mcg PO SUTUWETHSA 10/15/22 04/25/23 History calcitrioL 0.5 mcg PO MOFR 10/15/22 04/25/23 History Fludrocortisone [Florinef] 0.1 mg PO DAILY 04/25/23 04/25/23 History Omeprazole [PriLOSEC] 20 mg PO DAILY 04/25/23 04/25/23 History Allergies Allergy/AdvReac Type Severity Reaction Status Date / Time adhesive tape Allergy Itching Verified 04/25/23 10:01 codeine Allergy Rash/Hives Verified 04/25/23 10:01 cyclobenzaprine Allergy Rash/Hives Verified 04/25/23 10:01 [From Flexeril] diphenhydramine Allergy Anaphylaxis Verified 04/25/23 10:01 [From Benadryl] hydromorphone [From Dilaudid] Allergy Rash/Hives Verified 04/25/23 10:01 hydroxyzine Allergy Anaphylaxis Verified 04/25/23 10:01 Iodinated Contrast Media Allergy Anaphylaxis Verified 04/25/23 10:01 [Iodinated Contrast- Oral and IV Dye] pantoprazole [From Protonix] Allergy Anaphylaxis Verified 04/25/23 10:01 Penicillins Allergy Rash/Hives Verified 04/25/23 10:01 potassium chloride Allergy Rash/Hives Verified 04/25/23 10:01 pregabalin [From Lyrica] Allergy Anaphylaxis Verified 04/25/23 10:01 sevelamer Allergy Rash/Hives Verified 04/25/23 10:01 warfarin [From Coumadin] Allergy Anaphylaxis Verified 04/25/23 10:01 acetaminophen [From Vicodin] AdvReac Nausea & Verified 04/25/23 10:01 Vomiting aripiprazole [From Abilify] AdvReac Abdominal Verified 04/25/23 10:01 Pain aztreonam AdvReac Unknown Verified 04/25/23 10:01 calcitriol AdvReac Unknown Verified 04/25/23 10:01 cefadroxil AdvReac Unknown Verified 04/25/23 10:01 enalapril AdvReac Unknown Verified 04/25/23 10:01 hydrocodone [From Vicodin] AdvReac Nausea & Verified 04/25/23 10:01 Vomiting Influenza Virus Vaccines AdvReac Unknown Verified 04/25/23 10:01 levofloxacin [From Levaquin] AdvReac Abdominal Verified 04/25/23 10:01 Pain meloxicam [From Mobic] AdvReac Abdominal Verified 04/25/23 10:01 Pain morphine AdvReac Unknown Verified 04/25/23 10:01 propoxyphene AdvReac Unknown Verified 04/25/23 10:01 Sulfa (Sulfonamide AdvReac Vomiting Verified 04/25/23 10:01 Antibiotics) tramadol AdvReac Unknown Verified 04/25/23 10:01 Physical Exam Vitals: Vital Signs Temp Pulse Pulse Resp BP BP Pulse Ox 04/26/23 07:47 96 04/26/23 05:27 112/74 04/26/23 04:00 85 17 76/45 96 04/25/23 23:33 103 H 17 92/67 95 04/25/23 20:00 97.7 F 105 H 17 97/62 95 04/25/23 16:01 98 17 86/59 97 04/25/23 14:14 81/51 04/25/23 13:51 98.8 F 125 H 15 79/56 96 04/25/23 13:41 98.8 F 127 H 18 79/56 96 04/25/23 12:51 135 H 20 93/66 95 04/25/23 12:30 116 H 20 85/60 94 L Intake and Output 04/25/23 04/26/23 04/26/23 22:59 06:59 14:59 Intake Total 61.891 601.238 Balance 61.891 601.238 Intake: Intake, IV Titration 61.891 61.238 Amount Heparin Sod,Pork in 0.45% 61.891 61.238 NaCl 25,000 unit In 0.45 % NaCl 1 250ml.bag @ 12 UNITS/KG/HR 9.798 mls/hr IV .Q24H [facility] Rx#: [id number] Oral 540 Other: # Voids 2 Results 04/26/23 05:28 04/26/23 05:28 Cardiac Enzymes 04/25/23 04/25/23 04/26/23 Range/Units 12:28 16:40 05:28 AST 140 H (17-59) U/L Troponin I 22.500 H* 22.300 H* (0.000-0.034) ng/mL Coagulation 04/25/23 04/26/23 04/26/23 Range/Units 16:40 00:12 05:28 PT 10.3 (10.0-12.5) sec APTT 84.7 H 50.6 H (22.0-30.0) sec CBC 04/26/23 Range/Units 05:28 WBC 8.6 (3.8-10.6) k/uL RBC 2.17 L (4.30-5.90) m/uL Hgb 6.8 L* (13.0-17.5) gm/dL Hct 21.6 L (39.0-53.0) % Plt Count 132 L (150-450) k/uL Comprehensive Metabolic Panel 04/26/23 Range/Units 05:28 Sodium 132 L (137-145) mmol/L Potassium 3.8 (3.5-5.1) mmol/L Chloride 97 L (98-107) mmol/L Carbon Dioxide 25 (22-30) mmol/L BUN 78 H (9-20) mg/dL Creatinine 10.58 H* (0.66-1.25) mg/dL Glucose 75 (74-99) mg/dL Calcium 8.4 (8.4-10.2) mg/dL AST 140 H (17-59) U/L ALT 44 (4-49) U/L Alkaline Phosphatase 73 (38-126) U/L Total Protein 5.0 L (6.3-8.2) g/dL Albumin 2.8 L (3.5-5.0) g/dL Current Medications Generic Name Dose Route Start Last Admin Trade Name Freq PRN Reason Stop Dose Admin Acetaminophen 650 mg 04/25/23 11:54 Acetaminophen Tab 325 Mg Tab PO Q4HR PRN Pain Allopurinol 100 mg 04/26/23 09:00 04/26/23 10:30 Allopurinol 100 Mg Tab PO 100 mg DAILY [facility] Administration Aspirin 81 mg 04/25/23 16:30 04/26/23 10:29 Aspirin 81 Mg PO 81 mg DAILY [facility] Administration Atorvastatin Calcium 40 mg 04/25/23 16:15 04/26/23 10:29 Atorvastatin 40 Mg Tab PO 40 mg DAILY [facility] Administration Calcitriol 0.25 mcg 04/26/23 09:00 04/26/23 10:29 Calcitriol 0.25 Mcg Cap PO 0.25 mcg SUTUWETHSA [facility] Administration Calcitriol 0.5 mcg 04/28/23 09:00 Calcitriol 0.25 Mcg Cap PO MOFR [facility] Darbepoetin Martin 60 mcg 04/26/23 11:00 Darbepoetin Martin 60 Mcg/0.3 Ml Syringe SQ Q7D [facility] Famotidine 20 mg 04/25/23 21:00 04/25/23 20:03 Famotidine 20 Mg Tab PO 20 mg HS BASIL Administration Fludrocortisone Acetate 0.1 mg 04/26/23 09:00 04/26/23 10:29 Fludrocortisone 0.1 Mg Tab PO 0.1 mg DAILY [facility] Administration Heparin Sodium (Porcine) 0 unit 04/25/23 11:08 Heparin Sodium 1,000 Un/Ml (10ml Vl) IV PER PROTOCOL PRN Low PTT Protocol Levothyroxine Sodium 50 mcg 04/26/23 06:30 04/26/23 04:03 Levothyroxine 50 Mcg Tab PO 50 mcg 0630 BASIL Administration Metoprolol Tartrate 25 mg 04/26/23 12:00 Metoprolol Tartrate 25 Mg Tab PO BID [facility] Midodrine 10 mg 04/25/23 19:00 04/26/23 04:03 Midodrine 5 Mg Tab PO 10 mg QID@0700,1100,1500,1900 [facility] Administration Montelukast Sodium 10 mg 04/25/23 21:00 04/25/23 20:03 Montelukast 10 Mg Tab PO 10 mg HS [facility] Administration Patient's Own ( 20 mg 04/26/23 09:00 04/26/23 10:30 Omeprazole 20 Mg PO Not Given Capsule.) DAILY [facility] Prednisone 10 mg 04/26/23 09:00 04/26/23 10:29 Prednisone 10 Mg Tab PO 10 mg DAILY [facility] Administration Intake and Output 04/25/23 04/26/23 04/26/23 22:59 06:59 14:59 Intake Total 61.891 601.238 Balance 61.891 601.238 Intake: Intake, IV Titration 61.891 61.238 Amount Heparin Sod,Pork in 0.45% 61.891 61.238 NaCl 25,000 unit In 0.45 % NaCl 1 250ml.bag @ 12 UNITS/KG/HR 9.798 mls/hr IV .Q24H [facility] Rx#: [id number] Oral 540 Other: # Voids 2 04/26/23 05:28 04/26/23 05:28
[2023-04-26] MEDS: HEPARIN SODIUM,PORCINE 5,000 UNIT/ML 1 ML VIAL SQ SCH (20:00)
[2023-04-26 22:21] LABS: % Iron Saturation 6.03 (15.00-50.00)
[2023-04-26 23:04] LABS: Hepatitis B Surface AB- Quant 3.5 mIU/mL
[2023-04-26] MEDS: ACETAMINOPHEN TAB 325 MG TAB PO PRN (23:55)
--- NOTE | 2023-04-27 10:49 | P.PN ---
Subjective Progress Note Date: 04/27/23 No new complaints. Labs today are pending Gen: In NAD, non-toxic HEENT: normocephalic, atraumatic, hearing acuity is intant, mucous membranes moist CVS: perfusing all extremities well, no pitting edema, Respiratory: symmetric chest expansion, no accessory muscle use, GI: soft, NTTP, ND, : no suprapubic tenderness, no CVA tenderness MSK/Derm: no rashes, cyanosis Neuro: CN II-XII intact, no motor weakness, Psych: cooperative, euthymic mood, judgment and insight is intact Hospital Course: Patient is a 52-year-old male with history of ESRD on hemodialysis, atrial fibrillation not on anticoagulation, GERD, diverticulosis, hypothyroidism, aortic stenosis, blindness presenting with chest pain, epigastric pain, increasing weakness as well as elevated heart rate. In the ED, temperature was 99.4, pulse 140, respiratory rate 22, blood pressure 78/41, saturating at 97% on room air. WBC 11.1, hemoglobin 8, platelet 148, sodium 131, chloride 93, BUN 64, creatinine 9.42, lactate 2.2, total bili 0.7, AST 171, ALT 36, ALP 79, troponin 24, respiratory viral panel negative. EKG shows atrial fibrillation with RVR. Chest x-ray shows pulmonary edema. CT abdomen pelvis shows right pelvis transplant kidney hydronephrosis with inflammation changes, bibasilar consolidation, colonic diverticulosis. Cardiology already consulted. Nephrology also consulted. Echocardiogram reviewed, normal EF, calcified AV with gradient of 31mmHg. Patient started on heparin drip as well as Cardizem drip, which were discontinued due to anemia and transitioned to metoprolol respectively. Assessment/Plan: Active: Atrial fibrillation with RVR Type II NSTEMI -IV heparin gtt discontinued due to anemia -Cardizem gtt discontinued and replaced with metoprolol 25mg BID -Continue aspirin 81 mg, atorvastatin 40 mg -Continue telemetry -Cardiology consulted ESRD on hemodialysis Anemia of Chronic Disease Mild lactic acidosis -Nephrology consulted Leukocytosis Mild thrombocytopenia -Repeat CBC tomorrow -Blood cultures pending Large goiter previous thyroidectomy -TSH 1.6 -thyroid ultrasound with 1.4cm TR2 nodule - needs outpatient follow up Chronic: GERD Diverticulosis Hypothyroidism History of aortic stenosis Adrenal insufficiency The patient is admitted with an anticipated greater than 2 midnight stay as inpatient status for evaluation of NSTEMI. Surrogate decision-maker: YONI CODE STATUS: FC DVT prophylaxis: heparin gtt Anticipated discharge date: pending clinical course Anticipated discharge place: pending clinical course A total of 55 minutes was spent on the care of this complex patient more than 50% of the time was spent in counseling and care coordination. Objective - Vital Signs Vital signs: Vital Signs Temp 98 F 04/26/23 20:00 Pulse 63 04/27/23 03:39 Resp 18 04/27/23 03:39 BP 111/71 04/27/23 03:39 Pulse Ox 98 04/27/23 03:39 FiO2 Intake & Output 04/26/23 04/27/23 04/27/23 18:59 06:59 18:59 Intake Total 1430 540 225 Output Total 700 Balance 730 540 225 Weight 82 kg Intake: Oral 220 540 225 Blood Product 310 Rc As-1 Unit 310 [id number] Hemodialysis 900 Output: Urine 0 Hemodialysis 700 Other: # Voids 0 1 # Bowel Movements 1 1 - Labs CBC & Chem 7: 04/26/23 05:28 04/26/23 05:28 Labs: Abnormal Lab Results - Last 24 Hours (Table) 04/26/23 04/26/23 04/27/23 Range/Units 05:28 09:24 07:34 APTT 31.3 H (22.0-30.0) sec Iron 12 L (65-175) UG/DL TIBC 199 L (228-460) UG/DL % Saturation 6.03 L (15.00-50.00) Transferrin 142.0 L (204.0-354.0) mg/dL Crossmatch See Detail Microbiology - Last 24 Hours (Table) 04/25/23 09:15 Blood Culture - Preliminary Blood 04/25/23 09:00 Blood Culture - Preliminary Blood
--- NOTE | 2023-04-27 11:15 | P.PN ---
Subjective Patient is seen for follow-up for end-stage renal disease. Status post hemodialysis yesterday with UF off about 700 mL. Off of Cardizem drip. Status post packed RBCs transfusion yesterday. Hemodynamically stable. Sleeping comfortably and arousable but no significant complaints. Objective - Vital Signs Vital signs: Vital Signs Temp 97.0 F L 04/27/23 08:25 Pulse 93 04/27/23 08:25 Resp 16 04/27/23 08:25 BP 100/57 04/27/23 08:25 Pulse Ox 96 04/27/23 08:25 FiO2 Intake & Output 04/26/23 04/27/23 04/27/23 18:59 06:59 18:59 Intake Total 1430 540 225 Output Total 700 Balance 730 540 225 Weight 82 kg Intake: Oral 220 540 225 Blood Product 310 Rc As-1 Unit 310 [id number] Hemodialysis 900 Output: Urine 0 Hemodialysis 700 Other: # Voids 0 1 # Bowel Movements 1 1 1 - Exam Patient is comfortable awake not in any acute distress Examination of the heart S1 and S2 Examination of the lungs bilateral breath sounds are heard Abdomen is soft nontender Examination of lower extremities shows no significant edema. Chronic skin russell nges noted. Right femoral tunneled dialysis catheter. - Labs CBC & Chem 7: 04/26/23 05:28 04/26/23 05:28 Labs: Abnormal Lab Results - Last 24 Hours (Table) 04/26/23 04/26/23 04/27/23 Range/Units 05:28 09:24 07:34 APTT 31.3 H (22.0-30.0) sec Iron 12 L (65-175) UG/DL TIBC 199 L (228-460) UG/DL % Saturation 6.03 L (15.00-50.00) Transferrin 142.0 L (204.0-354.0) mg/dL Crossmatch See Detail Microbiology - Last 24 Hours (Table) 04/25/23 09:15 Blood Culture - Preliminary Blood 04/25/23 09:00 Blood Culture - Preliminary Blood Assessment and Plan Assessment: 1. End-stage renal disease on home hemodialysis via right femoral tunneled catheter. 2. Acute non-ST elevation WI 3. Anemia with no active bleeding noted. Patient will be maintained on Aranesp. Iron profile will be ordered. Packed RBCs transfusion recommended. 4. History of failed renal transplant currently on hemodialysis 5. Chronic hypotension maintained on midodrine, Florinef and prednisone 6. CK D mineral bone disorder maintained on calcitriol Plan: Hemodialysis in a.m. Continue with midodrine, Florinef and prednisone Check iron profile Continue Aranesp I
[2023-04-27 11:36] LABS: Anisocytosis Slight; HCT 26.1 % (39.0-53.0); HGB 8.4 gm/dL (13.0-17.5); Hypochromasia Moderate; MCH 31.7 pg (25.0-35.0); MCHC 32.3 g/dL (31.0-37.0); MCV 98.3 fL (80.0-100.0); Macrocytosis Slight; Mean Platelet Volume 9.7; Platelet Count 122 k/uL (150-450); Poikilocytosis Slight; RBC 2.65 m/uL (4.30-5.90); RDW 16.1 % (11.5-15.5); WBC 6.3 k/uL (3.8-10.6)
[2023-04-27 11:37] LABS: African American GFR (CKD) 9 (>60 ml/min/1.73 sqM); Anion Gap 10 mmol/L; Blood Urea Nitrogen 54 mg/dL (9-20); Calcium 8.4 mg/dL (8.4-10.2); Carbon Dioxide 24 mmol/L (22-30); Chloride 97 mmol/L (98-107); Glucose 84 mg/dL (74-99); Magnesium 1.9 mg/dL (1.6-2.3); Non-African American GFR(CKD) 8 (>60 ml/min/1.73 sqM); Potassium 3.5 mmol/L (3.5-5.1); Sodium 131 mmol/L (137-145)
[2023-04-27 12:45] LABS: Band Neutrophils % 1 %; Eosinophils # (M) 0.06 k/uL (0-0.7); Monocytes # (M) 0.38 k/uL (0-1.0); Neutrophils % (M) 86 %; Nucleated Red Blood Cells 0 /100 WBC (0-0); Total Cells Counted 200
--- NOTE | 2023-04-27 12:59 | P.PN ---
Subjective HISTORY OF PRESENTING ILLNESS This is a pleasant 52-year-old male past medical history significant for end-stage renal disease status post kidney transplantation on hemodialysis, aortic stenosis, hypertension, paroxysmal atrial fibrillation not on anticoagulation secondary to issues with bleeding surrounding dialysis catheter and obesity. He follows in the office with aidan Serrano, has not been seen since 2021. We have been asked to see in consultation for elevated troponin. He presented to ER with weakness and fatigue. His mother states he was having slurred speech and unable to communicate with her appropriately. He is on HD. He has no been on anti-coagulation do to frequent bleeding at the site of his dialysis catheter. His mom is at the bedside and states over the previous 2 months they have been struggling with anemia, hemoglobin continues to drop. This morning is 6.8. On arrival he was A. fib with RVR heart rate of 133. He was started on heparin and Cardizem infusions. This morning his rate is in the 80s. He had issues with hypotension and the Cardizem was held. Troponins were elevated however flat, echo reveals EF 55-60 with no wall motion abnormalities, moderate aortic stenosis with a mean of 31 mmHg. Most recent stress test performed in the office August 2021 was negative for reversible ischemia. DIAGNOSTICS EKG reveals atrial fib with rapid ventricular rate heart rate 133. Telemetry tracings indicate atrial fib. Chest xray low lung volumes with generalized hazy, could represent atelectasis versus pulmonary edema. Laboratory reviewed, WBC 8.6, hemoglobin 6.8, platelets 132, potassium 3.8, cre atinine 10.5, troponin 24, 22.5, 22.3, magnesium 1.6 and TSH 1.6. Current cardiac medications include atorvastatin 20 mg daily, Florinef 0.1 mg daily, midodrine 10 mg every 6 hours. 04/26/2023 Patient resting comfortably in bed in no acute distress. Blood pressure 109/84 heart rate 84 afebrile maintaining oxygen saturation on room air. Hemodialysis was completed yesterday as scheduled per nephrology. He denies chest pain. Telemetry tracings reviewed, he is maintaining atrial fibrillation with controlled ventricular rates. PHYSICAL EXAMINATION Blood pressure 112/74 heart rate 85 afebrile and maintaining oxygen saturation on room air. CONSTITUTIONAL: No apparent distress. Obese. HEENT: Head is normocephalic. Pupils are equal, round. Sclerae anicteric. Mucous membranes of the mouth are moist. No JVD. No carotid bruit. CHEST EXAMINATION: Lungs are clear to auscultation. No chest wall tenderness is noted on palpation or with deep breathing. HEART EXAMINATION: Irregular rate and rhythm. S1, S2 heard. No murmurs, gallops or rub. ABDOMEN: Soft, nontender. EXTREMITIES: 2+ peripheral pulses, trace lower extremity edema and no calf tenderness. NEUROLOGIC EXAMINATION: Patient is awake, alert and oriented x3. ASSESSMENT Type II MA secondary to oxygen supply demand mismatch with anemia and chronic renal failure End-stage renal disease on hemodialysis status post transplantation Persistent atrial fibrillation with rapid ventricular rate unable to take long- term anticoagulation PLAN Continue current medical regimen. Follow-up in the office after discharge for outpatient stress test. We will follow along as needed, please feel free to call with further questions or concerns. Nurse Practitioner note has been reviewed, I agree with a documented findings and plan of care. Patient was seen and examined. Objective - Vital Signs Vital signs: Vital Signs Temp 97.0 F L 04/27/23 08:25 Pulse 84 04/27/23 11:45 Resp 16 04/27/23 11:45 BP 109/84 04/27/23 11:45 Pulse Ox 96 04/27/23 11:45 FiO2 Intake & Output 04/26/23 04/27/23 04/27/23 18:59 06:59 18:59 Intake Total 1430 540 225 Output Total 700 Balance 730 540 225 Weight 82 kg Intake: Oral 220 540 225 Blood Product 310 Rc As-1 Unit 310 [id number] Hemodialysis 900 Output: Urine 0 Hemodialysis 700 Other: # Voids 0 1 # Bowel Movements 1 1 1 - Labs CBC & Chem 7: 04/27/23 10:51 04/27/23 10:51 Labs: Abnormal Lab Results - Last 24 Hours (Table) 04/26/23 04/26/23 04/27/23 Range/Units 05:28 09:24 07:34 RBC (4.30-5.90) m/uL Hgb (13.0-17.5) gm/dL Hct (39.0-53.0) % RDW (11.5-15.5) % Plt Count (150-450) k/uL Lymphocytes # (Manual) (1.0-4.8) k/uL APTT 31.3 H (22.0-30.0) sec Sodium (137-145) mmol/L Chloride (98-107) mmol/L BUN (9-20) mg/dL Creatinine (0.66-1.25) mg/dL Iron 12 L (65-175) UG/DL TIBC 199 L (228-460) UG/DL % Saturation 6.03 L (15.00-50.00) Transferrin 142.0 L (204.0-354.0) mg/dL Crossmatch See Detail 04/27/23 04/27/23 Range/Units 10:51 10:51 RBC 2.65 L (4.30-5.90) m/uL Hgb 8.4 L D (13.0-17.5) gm/dL Hct 26.1 L (39.0-53.0) % RDW 16.1 H (11.5-15.5) % Plt Count 122 L (150-450) k/uL Lymphocytes # (Manual) 0.50 L (1.0-4.8) k/uL APTT (22.0-30.0) sec Sodium 131 L (137-145) mmol/L Chloride 97 L (98-107) mmol/L BUN 54 H (9-20) mg/dL Creatinine 7.16 H* (0.66-1.25) mg/dL Iron (65-175) UG/DL TIBC (228-460) UG/DL % Saturation (15.00-50.00) Transferrin (204.0-354.0) mg/dL Crossmatch Microbiology - Last 24 Hours (Table) 04/25/23 09:15 Blood Culture - Preliminary Blood 04/25/23 09:00 Blood Culture - Preliminary Blood
[2023-04-27] MEDS: OMEPRAZOLE 20 MG PO SCH (19:43)
[2023-04-27] MEDS ORDERED: OMEPRAZOLE 20 MG PO SCH (21:00)
[2023-04-28 07:16] LABS: Basophils % (A) 0 %; Eosinophils % (A) 0 %; HCT 28.4 % (39.0-53.0); Hypochromasia Slight; Lymphocytes # (A) 0.9 k/uL (1.0-4.8); Lymphocytes % (A) 18 %; MCH 30.8 pg (25.0-35.0); MCHC 31.5 g/dL (31.0-37.0); MCV 97.6 fL (80.0-100.0); Mean Platelet Volume 7.8; Monocytes # (A) 0.4 k/uL (0-1.0); Monocytes % (A) 8 %; Neutrophils # (A) 3.4 k/uL (1.3-7.7); Neutrophils % (A) 72 %; Platelet Count 159 k/uL (150-450); RBC 2.91 m/uL (4.30-5.90); RDW 15.6 % (11.5-15.5); WBC 4.8 k/uL (3.8-10.6)
[2023-04-28 07:34] LABS: African American GFR (CKD) 7 (>60 ml/min/1.73 sqM); Anion Gap 11 mmol/L; Blood Urea Nitrogen 68 mg/dL (9-20); Calcium 8.5 mg/dL (8.4-10.2); Carbon Dioxide 24 mmol/L (22-30); Chloride 98 mmol/L (98-107); Glucose 88 mg/dL (74-99); Non-African American GFR(CKD) 6 (>60 ml/min/1.73 sqM); Potassium 3.8 mmol/L (3.5-5.1); Sodium 133 mmol/L (137-145)
[2023-04-28 08:34] VITALS: TEMP 97.7
--- NOTE | 2023-04-28 10:11 | P.PN ---
Subjective Patient is seen in follow-up for end-stage renal disease. He is maintained on home hemodialysis. Scheduled for dialysis today. Denies chest pain or shortness of breath. Blood pressure stable. Heart rate controlled. Vital signs are stable. General: No acute distress. HEENT: Head exam is unremarkable. LUNGS: No audible rhonchi or wheezes. HEART: Rate and Rhythm are regular. ABDOMEN: Nontender. EXTREMITITES: Trace edema. Objective - Vital Signs Vital signs: Vital Signs Temp 97.7 F 04/28/23 08:24 Pulse 92 04/28/23 08:24 Resp 16 04/28/23 08:24 BP 139/82 04/28/23 08:24 Pulse Ox 100 04/28/23 08:24 FiO2 Intake & Output 04/27/23 04/28/23 04/28/23 18:59 06:59 18:59 Intake Total 555 540 540 Output Total 0 Balance 555 540 540 Weight 83.2 kg Intake: Oral 555 540 540 Output: Urine 0 Other: # Voids 0 # Bowel Movements 0 - Labs CBC & Chem 7: 04/28/23 06:06 04/28/23 06:06 Labs: Abnormal Lab Results - Last 24 Hours (Table) 04/27/23 04/27/23 04/28/23 Range/Units 10:51 10:51 06:06 RBC 2.65 L 2.91 L (4.30-5.90) m/uL Hgb 8.4 L D 9.0 L (13.0-17.5) gm/dL Hct 26.1 L 28.4 L (39.0-53.0) % RDW 16.1 H 15.6 H (11.5-15.5) % Plt Count 122 L (150-450) k/uL Lymphocytes # 0.9 L (1.0-4.8) k/uL Lymphocytes # (Manual) 0.50 L (1.0-4.8) k/uL Sodium 131 L (137-145) mmol/L Chloride 97 L (98-107) mmol/L BUN 54 H (9-20) mg/dL Creatinine 7.16 H* (0.66-1.25) mg/dL 04/28/23 Range/Units 06:06 RBC (4.30-5.90) m/uL Hgb (13.0-17.5) gm/dL Hct (39.0-53.0) % RDW (11.5-15.5) % Plt Count (150-450) k/uL Lymphocytes # (1.0-4.8) k/uL Lymphocytes # (Manual) (1.0-4.8) k/uL Sodium 133 L (137-145) mmol/L Chloride (98-107) mmol/L BUN 68 H (9-20) mg/dL Creatinine 8.77 H* (0.66-1.25) mg/dL Microbiology - Last 24 Hours (Table) 04/25/23 09:15 Blood Culture - Preliminary Blood 04/25/23 09:00 Blood Culture - Preliminary Blood Assessment and Plan Plan: Assessment: 1. End-stage renal disease maintained on home hemodialysis via femoral catheter. 2. A-fib with RVR. Currently rate controlled. On metoprolol. 3. Anemia of chronic kidney disease maintained on Aranesp. Received blood transfusion this admission. No active bleeding. 4. Chronic kidney disease mineral bone disease maintained on calcitriol. 5. Chronic hypotension maintained on midodrine. 6. NSTEMI being followed by cardiology. Plan: HD today.
[2023-04-28 12:04] VITALS: BP 107/70; PULSE 89; RESP 18
--- NOTE | 2023-04-28 12:55 | P.DS ---
Providers Date of admission: 04/25/23 12:02 Expected date of discharge: 04/28/23 Attending physician: Leonard Rose MD Consults: 04/25/23 11:54 Consult Physician Urgent Consulting Provider: Stormy Reardon Consult Reason/Comments: NSTEMI Do you want consulting provider notified?: Already Contacted Consult Physician Urgent Consulting Provider: Mychal Jerome Consult Reason/Comments: Dialysis Do you want consulting provider notified?: Yes Primary care physician: Stated None Hospital Course: Atrial fibrillation with RVR Type II NSTEMI ESRD on hemodialysis Anemia of Chronic Disease Mild lactic acidosis Leukocytosis Mild thrombocytopenia Large goiter previous thyroidectomy -thyroid ultrasound with 1.4cm TR2 nodule - needs outpatient follow up GERD Diverticulosis Hypothyroidism History of aortic stenosis Adrenal insufficiency Hospital Course: Patient is a 52-year-old male with history of ESRD on hemodialysis, atrial fibrillation not on anticoagulation, GERD, diverticulosis, hypothyroidism, aortic stenosis, blindness presenting with chest pain, epigastric pain, increasing weakness as well as elevated heart rate. In the ED, temperature was 99.4, pulse 140, respiratory rate 22, blood pressure 78/41, saturating at 97% on room air. WBC 11.1, hemoglobin 8, platelet 148, sodium 131, chloride 93, BUN 64, creatinine 9.42, lactate 2.2, total bili 0.7, AST 171, ALT 36, ALP 79, troponin 24, respiratory viral panel negative. EKG shows atrial fibrillation with RVR. Chest x-ray shows pulmonary edema. CT abdomen pelvis shows right pelvis transplant kidney hydronephrosis with inflammation changes, bibasilar consolidation, colonic diverticulosis. Cardiology already consulted. Nephrology also consulted. Echocardiogram reviewed, normal EF, calcified AV w ith gradient of 31mmHg. Patient started on heparin drip as well as Cardizem drip, which were discontinued due to anemia and transitioned to metoprolol respectively. Pt was cleared for discharge by consulting services. He will need f/u in cardiology clinic to schedule outpatient stress test. He will also need outpatient f/u regarding his 1.4cm TR2 nodule seen on thyroid US. I spent 34 minutes coordinating this discharge on 04/28 Gen: In NAD, non-toxic HEENT: normocephalic, atraumatic, hearing acuity is intant, mucous membranes moist CVS: perfusing all extremities well, no pitting edema, Respiratory: symmetric chest expansion, no accessory muscle use, GI: soft, NTTP, ND, : no suprapubic tenderness, no CVA tenderness MSK/Derm: no rashes, cyanosis Neuro: CN II-XII intact, no motor weakness, Psych: cooperative, euthymic mood, judgment and insight is intact Patient Condition at Discharge: Good Plan - Discharge Summary New Discharge Prescriptions: New Darbepoetin Martin [Aranesp] 60 mcg SQ Q7D #15 each Aspirin 81 mg PO DAILY #30 tab Metoprolol Tartrate [Lopressor] 25 mg PO BID #60 tab Acetaminophen Tab [Tylenol] 650 mg PO Q4HR PRN tab PRN Reason: Pain Continue Montelukast [Singulair] 10 mg PO HS Levothyroxine Sodium [Synthroid] 50 mcg PO DAILY allopurinoL 100 mg PO DAILY Omeprazole [PriLOSEC] 20 mg PO DAILY predniSONE 10 mg PO DAILY calcitrioL 0.25 mcg PO SUTUWETHSA calcitrioL 0.5 mcg PO MOFR Midodrine HCl [ProAmatine] 10 mg PO QID Atorvastatin [Lipitor] 20 mg PO DAILY Fludrocortisone [Florinef] 0.1 mg PO DAILY Discharge Medication List Levothyroxine Sodium [Synthroid] 50 mcg PO DAILY 12/18/17 [History] Montelukast [Singulair] 10 mg PO HS 12/18/17 [History] predniSONE 10 mg PO DAILY 04/25/21 [History] Atorvastatin [Lipitor] 20 mg PO DAILY 10/15/22 [History] Midodrine HCl [ProAmatine] 10 mg PO QID 10/15/22 [History] allopurinoL 100 mg PO DAILY 10/15/22 [History] calcitrioL 0.25 mcg PO SUTUWETHSA 10/15/22 [History] calcitrioL 0.5 mcg PO MOFR 10/15/22 [History] Fludrocortisone [Florinef] 0.1 mg PO DAILY 04/25/23 [History] Omeprazole [PriLOSEC] 20 mg PO DAILY 04/25/23 [History] Acetaminophen Tab [Tylenol] 650 mg PO Q4HR PRN tab 04/28/23 [Rx] Aspirin 81 mg PO DAILY #30 tab 04/28/23 [Rx] Darbepoetin Martin [Aranesp] 60 mcg SQ Q7D #15 each 04/28/23 [Rx] Metoprolol Tartrate [Lopressor] 25 mg PO BID #60 tab 04/28/23 [Rx] Follow up Appointment(s)/Referral(s): Sage Uribe MD [Medical Doctor] - 1 Week (please call and make appointment ) None,Stated [Primary Care Provider] - 1-2 days Mychal Jerome DO [STAFF PHYSICIAN] - 05/20/23 10:00 am (on cancellation list ) Patient Instructions/Handouts: Heart Attack (DC), End Stage Kidney Disease (DC) Discharge Disposition: HOME SELF-CARE
== END 2023-04-28 13:17 | disposition home or self-care (01) | DRG 280 ==
LOC: EC 08:38 → 3SCARD 12:02
PROVIDERS: ADMIT Student in an Organized Health Care Education/Training Program; ATTEND Student in an Organized Health Care Education/Training Program
PROC: 5A1D70Z Performance of Urinary Filtration, Intermittent, Less than 6 Hours Per Day (ICD-10-PCS; principal; 2023-04-26)
PROC: 30233N1 Transfusion of Nonautologous Red Blood Cells into Peripheral Vein, Percutaneous Approach (ICD-10-PCS; 2023-04-26)
DX: I48.19 Other persistent atrial fibrillation (principal); I21.A1 Myocardial infarction type 2; N18.6 End stage renal disease; E87.20 Acidosis, unspecified; E27.40 Unspecified adrenocortical insufficiency; N13.30 Unspecified hydronephrosis; T86.19 Other complication of kidney transplant; T86.12 Kidney transplant failure; I12.0 Hypertensive chronic kidney disease with stage 5 chronic kidney disease or end stage renal disease; D69.6 Thrombocytopenia, unspecified; G40.409 Other generalized epilepsy and epileptic syndromes, not intractable, without status epilepticus; D63.1 Anemia in chronic kidney disease; I95.89 Other hypotension; Z99.2 Dependence on renal dialysis; E04.9 Nontoxic goiter, unspecified; E89.0 Postprocedural hypothyroidism; I35.0 Nonrheumatic aortic (valve) stenosis; E66.9 Obesity, unspecified; K21.9 Gastro-esophageal reflux disease without esophagitis; H54.7 Unspecified visual loss; M85.80 Other specified disorders of bone density and structure, unspecified site; K57.30 Diverticulosis of large intestine without perforation or abscess without bleeding; R47.81 Slurred speech; R29.6 Repeated falls; Z79.890 Hormone replacement therapy; Z79.52 Long term (current) use of systemic steroids; Z79.899 Other long term (current) drug therapy; Z91.048 Other nonmedicinal substance allergy status; Z88.5 Allergy status to narcotic agent; Z88.8 Allergy status to other drugs, medicaments and biological substances; Z91.041 Radiographic dye allergy status; Z88.0 Allergy status to penicillin; Z88.7 Allergy status to serum and vaccine; Z88.6 Allergy status to analgesic agent; Z88.2 Allergy status to sulfonamides; Z11.52 Encounter for screening for COVID-19; Z91.81 History of falling; Z68.27 Body mass index [BMI] 27.0-27.9, adult
CPT/HCPCS: 36415; 71046; 74176; 76536; 80048; 80053; 83540; 83550; 83605; 83735; 84100; 84443; 84484; 85025; 85610; 85730; 86706; 86850; 86900; 86901; 86920; 87040; 87340; 87636; 90935; 93005; 93306; 94760; 96365; 96368; 96375; 99291

== ENCOUNTER 2023-05-08 12:50 | Inpatient (IN) | payer MEDICARE ==
--- NOTE | 2023-05-08 13:47 | ED ---
General Adult HPI - General Chief complaint: Arrhythmia/Palpitations Stated complaint: Blood in urine Time Seen by Provider: 05/08/23 13:15 Source: patient, RN notes reviewed, old records reviewed Mode of arrival: ambulatory Limitations: no limitations - History of Present Illness Initial comments: This is a 52-year-old male who presents to the emergency department with a past medical history significant for dialysis and atrial fibrillation. Patient comes in today complaining that he can feel his heart racing and states that he also has blood in his urine and he has an issue lately that he is anemic and so he is concerned that his hemoglobin has dropped significantly. Patient states he also Patient denies any erick was having some chest pain when he was feeling the palpitations. P or bloody stools. Patient denies any abdominal pain. Patient states he chronically has chest pain and it is no different today. Patient denies any recent fever chills or cough. Patient has a headache patient has numbness weakness. - Related Data Home Medications Medication Instructions Recorded Confirmed Levothyroxine Sodium [Synthroid] 50 mcg PO DAILY 12/18/17 05/08/23 Montelukast [Singulair] 10 mg PO HS 12/18/17 05/08/23 predniSONE 10 mg PO DAILY 04/25/21 05/08/23 Atorvastatin [Lipitor] 20 mg PO DAILY 10/15/22 05/08/23 Midodrine HCl [ProAmatine] 10 mg PO QID 10/15/22 05/08/23 allopurinoL 100 mg PO DAILY 10/15/22 05/08/23 calcitrioL 0.25 mcg PO SUTUWETHSA 10/15/22 05/08/23 calcitrioL 0.5 mcg PO MOFR 10/15/22 05/08/23 Fludrocortisone [Florinef] 0.1 mg PO DAILY 04/25/23 05/08/23 Omeprazole [PriLOSEC] 20 mg PO DAILY 04/25/23 05/08/23 Darbepoetin Martin [Aranesp] 60 mcg SQ TH 05/08/23 05/08/23 Previous Rx's Medication Instructions Recorded Acetaminophen Tab [Tylenol] 650 mg PO Q4HR PRN tab 04/28/23 Aspirin 81 mg PO DAILY #30 tab 04/28/23 Metoprolol Tartrate [Lopressor] 25 mg PO BID #60 tab 04/28/23 Allergies Allergy/AdvReac Type Severity Reaction Status Date / Time adhesive tape Allergy Itching Verified 05/08/23 14:37 codeine Allergy Rash/Hives Verified 05/08/23 14:37 cyclobenzaprine Allergy Rash/Hives Verified 05/08/23 14:37 [From Flexeril] diphenhydramine Allergy Anaphylaxis Verified 05/08/23 14:37 [From Benadryl] hydromorphone [From Dilaudid] Allergy Rash/Hives Verified 05/08/23 14:37 hydroxyzine Allergy Anaphylaxis Verified 05/08/23 14:37 Iodinated Contrast Media Allergy Anaphylaxis Verified 05/08/23 14:37 [Iodinated Contrast- Oral and IV Dye] pantoprazole [From Protonix] Allergy Anaphylaxis Verified 05/08/23 14:37 Penicillins Allergy Rash/Hives Verified 05/08/23 14:37 potassium chloride Allergy Rash/Hives Verified 05/08/23 14:37 pregabalin [From Lyrica] Allergy Anaphylaxis Verified 05/08/23 14:37 sevelamer Allergy Rash/Hives Verified 05/08/23 14:37 warfarin [From Coumadin] Allergy Anaphylaxis Verified 05/08/23 14:37 acetaminophen [From Vicodin] AdvReac Nausea & Verified 05/08/23 14:37 Vomiting aripiprazole [From Abilify] AdvReac Abdominal Verified 05/08/23 14:37 Pain aztreonam AdvReac Unknown Verified 05/08/23 14:37 calcitriol AdvReac Unknown Verified 05/08/23 14:37 cefadroxil AdvReac Unknown Verified 05/08/23 14:37 enalapril AdvReac Unknown Verified 05/08/23 14:37 hydrocodone [From Vicodin] AdvReac Nausea & Verified 05/08/23 14:37 Vomiting Influenza Virus Vaccines AdvReac Unknown Verified 05/08/23 14:37 levofloxacin [From Levaquin] AdvReac Abdominal Verified 05/08/23 14:37 Pain meloxicam [From Mobic] AdvReac Abdominal Verified 05/08/23 14:37 Pain morphine AdvReac Unknown Verified 05/08/23 14:37 propoxyphene AdvReac Unknown Verified 05/08/23 14:37 Sulfa (Sulfonamide AdvReac Vomiting Verified 05/08/23 14:37 Antibiotics) tramadol AdvReac Unknown Verified 05/08/23 14:37 Review of Systems ROS Statement: Those systems with pertinent positive or pertinent negative responses have been documented in the HPI. ROS Other: All systems not noted in ROS Statement are negative. Past Medical History Past Medical History: Atrial Fibrillation, Dialysis, GERD/Reflux, Renal Disease, Seizure Disorder, Thyroid Disorder Additional Past Medical History / Comment(s): hemodialysis M/W,F,/S at home, diverticulitis,blind, shingles in February, recent falls, kidney transplant in 1998, CAPD when pt was 19y.o, anemia, around 7 grand mal seizures in 2021, nonactive L. arm dialysis graft, R. groin dialysis port. History of Any Multi-Drug Resistant Organisms: None Reported Additional Past Surgical History / Comment(s): fistula placement , thyroidectomy, kidney transplant Past Anesthesia/Blood Transfusion Reactions: Previous Problems w/ Anesthesia Additional Past Anesthesia/Blood Transfusion Reaction / Comment(s): Pt has his surgery done with local anesthetics d/t general anesthesia causing facial edema and difficulty waking. Blood transfusion had no issues Past Psychological History: No Psychological Hx Reported Smoking Status: Never smoker Past Alcohol Use History: None Reported Past Drug Use History: None Reported - Past Family History Mother Family Medical History: Fibromyalgia, Osteoarthritis (OA) Additional Family Medical History / Comment(s): Lupus Family Family Medical History: No Reported History Additional Family Medical History / Comment(s): ETOH abuse General Exam - General Exam Comments Initial Comments: GENERAL: Patient is well-developed and well-nourished. Patient is nontoxic and well- hydrated and is in no acute distress. ENT: Neck is soft and supple. No significant lymphadenopathy is noted. Oropharynx is clear. Moist mucous membranes. Neck has full range of motion without eliciting any pain. EYES: The sclera were anicteric and conjunctiva were pink and moist. Extraocular movements were intact and pupils were equal round and reactive to light. Eyelids were unremarkable. PULMONARY: Unlabored respirations. Good breath sounds bilaterally. No audible rales rhonchi or wheezing was noted. CARDIOVASCULAR: Patient is tachycardic and irregular at about 110 bpm ABDOMEN: Soft and nontender with normal bowel sounds. SKIN: Skin is clear with no lesions or rashes and otherwise unremarkable. NEUROLOGIC: Patient is alert and oriented x3. Cranial nerves II through XII are grossly intact. Motor and sensory are also intact. Normal speech, volume and content. Symmetrical smile. MUSCULOSKELETAL: Normal extremities with adequate strength and full range of motion. No lower extremity swelling or edema. No calf tenderness. LYMPHATICS: No significant lymphadenopathy is noted PSYCHIATRIC: Normal psychiatric evaluation. Limitations: no limitations Course Vital Signs 05/08/23 05/08/23 05/08/23 12:58 14:00 15:34 Temperature 98.6 F 98.5 F Pulse Rate 105 H 97 102 H Respiratory 18 18 16 Rate Blood Pressure 81/59 109/73 123/71 O2 Sat by Pulse 97 97 99 Oximetry Medical Decision Making - Medical Decision Making EKG is interpreted by myself. EKG shows atrial fibrillation with rapid ventricular response at 106 bpm QRS is 89 QT interval 323 QTc is 385. Patient EKG shows no ST segment ovation or depression. Was pt. sent in by a medical professional or institution (, PA, FORGE SHOP MACHINE REPAIRER, urgent care, hospital, or residential...) When possible be specific @ -Patient's catastrophe claims supervisor told him to come to the emergency department Did you speak to anyone other than the patient for history (EMS, parent, family, police, friend...)? What history was obtained from this source @ -No Did you review nursing and triage notes (agree or disagree)? Why? @ -I reviewed and agree with nursing and triage notes Were old charts reviewed (outside hosp., previous admission, EMS record, old EKG, old radiological studies, urgent care reports/EKG's, residential records)? Report findings @ -I reviewed prior charts prior lab work and prior radiological studies Differential Diagnosis (chest pain, altered mental status, abdominal pain women, abdominal pain men, vaginal bleeding, weakness, fever, dyspnea, syncope, headache, dizziness, GI bleed, back pain, seizure, CVA, palpatations, mental health, musculoskeletal)? @ -Differential Chest Pain: Stable Angina, Unstable Angina, STEMI, NSTEMI Aortic Dissection, Pneumothorax, Musculoskeletal, Esophageal Spasm GERD, Cholecystitis, Pancreatitis, Zoster, this is not meant to be an all-inclusive list. Also patient could have urinary tract infection cystitis, pyelonephritis, anem ia, GI bleed, this is not an all-inclusive list EKG interpreted by me (3pts min.). @ -As above X-rays interpreted by me (1pt min.). @ -Chest x-ray shows no acute abnormality CT interpreted by me (1pt min.). @ -None done U/S interpreted by me (1pt. min.). @ -None done What testing was considered but not performed or refused? (CT, X-rays, U/S, labs)? Why? @ -None What meds were considered but not given or refused? Why? @ -None Did you discuss the management of the patient with other professionals (professionals i.e. , PA, FORGE SH[employer] MACHINE REPAIRER, lab, RT, psych nurse, school social worker, studio operations manager, teacher, financial aids officer, case mgr)? Give summary @ -I spoke with sound physicians they agreed to admit the patient Was smoking cessation discussed for >3mins.? @ -No Was critical care preformed (if so, how long)? @ -No Were there social determinants of health that impacted care today? How? (Homelessness, low income, unemployed, alcoholism, drug addiction, transportation, low edu. Level, literacy, decrease access to med. care, [facility], rehab)? @ -No Was there de-escalation of care discussed even if they declined (Discuss DNR or withdrawal of care, Hospice)? DNR status @ -No What co-morbidities impacted this encounter? (DM, HTN, Smoking, COPD, CAD, Cancer, CVA, ARF, Chemo, Hep., AIDS, mental health diagnosis, sleep apnea, morbid obesity)? @ -None Was patient admitted / discharged? Hospital course, mention meds given and route, prescriptions, significant lab abnormalities, going to OR and other pertinent info. @ -Patient's urine came back infected patient was given 2 g Rocephin blood cultures were drawn and a lactic acid was done. I spoke with sound physicians they agreed to admit the patient. Patient's troponin was mildly elevated could be secondary to his kidney disease but because he was having chest pain that will be repeated. Undiagnosed new problem with uncertain prognosis? @ -No Drug Therapy requiring intensive monitoring for toxicity (Heparin, Nitro, Insulin, Cardizem)? @ -No Were any procedures done? @ -No Diagnosis/symptom? @ -Urinary tract infection Acute, or Chronic, or Acute on Chronic? @ -Acute Uncomplicated (without systemic symptoms) or Complicated (systemic symptoms)? @ -Complicated Side effects of treatment? @ -No Exacerbation, Progression, or Severe Exacerbation? @ -No Poses a threat to life or bodily function? How? (Chest pain, USA, NV, pneumonia, PE, COPD, DKA, ARF, appy, cholecystitis, CVA, Diverticulitis, Homicidal, Suicidal, threat to staff... and all critical care pts) @ -Yes this could lead to sepsis and endorgan dysfunction Diagnosis/symptom? @ -Chest pain Acute, or Chronic, or Acute on Chronic? @ -Acute Uncomplicated (without systemic symptoms) or Complicated (systemic symptoms)? @ -Complicated Side effects of treatment? @ -None Exacerbation, Progression, or Severe Exacerbation] @ -No Poses a threat to life or bodily function? @ -Yes this could lead to an NV and endorgan dysfunction Diagnosis/symptom? @ -Anemia Acute, or Chronic, or Acute on Chronic? @ -Chronic Uncomplicated (without systemic symptoms) or Complicated (systemic symptoms)? @ -Uncomplicated Side effects of treatment? @ -None Exacerbation, Progression, or Severe Exacerbation] @ -No Poses a threat to life or bodily function? @ -No - Lab Data Result diagrams: 05/08/23 14:12 05/08/23 14:12 Lab Results 05/08/23 05/08/23 05/08/23 Range/Units 14:12 14:12 14:12 WBC 6.6 (3.8-10.6) k/uL RBC 2.82 L (4.30-5.90) m/uL Hgb 8.7 L (13.0-17.5) gm/dL Hct 27.7 L (39.0-53.0) % MCV 98.1 (80.0-100.0) fL MCH 30.9 (25.0-35.0) pg MCHC 31.5 (31.0-37.0) g/dL RDW 15.6 H (11.5-15.5) % Plt Count 297 (150-450) k/uL MPV 7.7 Neutrophils % 84 % Lymphocytes % 9 % Monocytes % 5 % Eosinophils % 0 % Basophils % 0 % Neutrophils # 5.5 (1.3-7.7) k/uL Lymphocytes # 0.6 L (1.0-4.8) k/uL Monocytes # 0.4 (0-1.0) k/uL Eosinophils # 0.0 (0-0.7) k/uL Basophils # 0.0 (0-0.2) k/uL Hypochromasia Moderate Macrocytosis Slight PT 10.9 (10.0-12.5) sec INR 1.0 (<1.2) APTT 26.5 (22.0-30.0) sec Sodium (137-145) mmol/L Potassium (3.5-5.1) mmol/L Chloride (98-107) mmol/L Carbon Dioxide (22-30) mmol/L Anion Gap mmol/L BUN (9-20) mg/dL Creatinine (0.66-1.25) mg/dL Est GFR (CKD-EPI)AfAm (>60 ml/min/1.73 sqM) Est GFR (CKD-EPI)NonAf (>60 ml/min/1.73 sqM) Glucose (74-99) mg/dL Calcium (8.4-10.2) mg/dL Magnesium (1.6-2.3) mg/dL Total Bilirubin (0.2-1.3) mg/dL AST (17-59) U/L ALT (4-49) U/L Alkaline Phosphatase (38-126) U/L Troponin I (0.000-0.034) ng/mL Total Protein (6.3-8.2) g/dL Albumin (3.5-5.0) g/dL Urine Color Light Red Urine Appearance Turbid (Clear) Urine pH 6.5 (5.0-8.0) Ur Specific Rien[place] 1.022 (1.001-1.035) Urine Protein 1+ H (Negative) Urine Glucose (UA) Negative (Negative) Urine Ketones Trace H (Negative) Urine Blood Small H (Negative) Urine Nitrite Negative (Negative) Urine Bilirubin 1+ H (Negative) Urine Urobilinogen <2.0 (<2.0) mg/dL Ur Leukocyte Esterase Moderate H (Negative) Urine RBC >182 H (0-5) /hpf Urine WBC >182 H (0-5) /hpf Urine WBC Clumps Many H (None) /hpf Urine Bacteria Many H (None) /hpf 05/08/23 05/08/23 Range/Units 14:12 14:12 WBC (3.8-10.6) k/uL RBC (4.30-5.90) m/uL Hgb (13.0-17.5) gm/dL Hct (39.0-53.0) % MCV (80.0-100.0) fL MCH (25.0-35.0) pg MCHC (31.0-37.0) g/dL RDW (11.5-15.5) % Plt Count (150-450) k/uL MPV Neutrophils % % Lymphocytes % % Monocytes % % Eosinophils % % Basophils % % Neutrophils # (1.3-7.7) k/uL Lymphocytes # (1.0-4.8) k/uL Monocytes # (0-1.0) k/uL Eosinophils # (0-0.7) k/uL Basophils # (0-0.2) k/uL Hypochromasia Macrocytosis PT (10.0-12.5) sec INR (<1.2) APTT (22.0-30.0) sec Sodium 137 (137-145) mmol/L Potassium 4.7 (3.5-5.1) mmol/L Chloride 100 (98-107) mmol/L Carbon Dioxide 30 (22-30) mmol/L Anion Gap 7 mmol/L BUN 45 H (9-20) mg/dL Creatinine 6.64 H (0.66-1.25) mg/dL Est GFR (CKD-EPI)AfAm 10 (>60 ml/min/1.73 sqM) Est GFR (CKD-EPI)NonAf 9 (>60 ml/min/1.73 sqM) Glucose 103 H (74-99) mg/dL Calcium 9.8 (8.4-10.2) mg/dL Magnesium 1.8 (1.6-2.3) mg/dL Total Bilirubin 0.5 (0.2-1.3) mg/dL AST 23 (17-59) U/L ALT 15 (4-49) U/L Alkaline Phosphatase 71 (38-126) U/L Troponin I 0.071 H* (0.000-0.034) ng/mL Total Protein 5.7 L (6.3-8.2) g/dL Albumin 3.4 L (3.5-5.0) g/dL Urine Color Urine Appearance (Clear) Urine pH (5.0-8.0) Ur Specific Rien[place] (1.001-1.035) Urine Protein (Negative) Urine Glucose (UA) (Negative) Urine Ketones (Negative) Urine Blood (Negative) Urine Nitrite (Negative) Urine Bilirubin (Negative) Urine Urobilinogen (<2.0) mg/dL Ur Leukocyte Esterase (Negative) Urine RBC (0-5) /hpf Urine WBC (0-5) /hpf Urine WBC Clumps (None) /hpf Urine Bacteria (None) /hpf Disposition Clinical Impression: Chest pain, Elevated troponin, Anemia, Urinary tract infection Disposition: ADMITTED IP TO THIS HOSP Referrals: Mychal Jerome DO [Primary Care Provider] - 1-2 days Time of Disposition: 16:04
[2023-05-08 14:46] LABS: Appearance,Urine Turbid (Clear); Bacteria,Urine Many /hpf; Bilirubin,Urine 1+ (Negative); Blood,Urine Small (Negative); Color,Urine Light Red; Glucose,Urine (UA) Negative (Negative); Ketones,Urine Trace (Negative); Leukocyte Esterase,Urine Moderate (Negative); Nitrite,Urine Negative (Negative); PH, Urine 6.5 (5.0-8.0); Protein,Urine 1+ (Negative); RBC,Urine >182 /hpf (0-5); Urobilinogen,Urine <2.0 mg/dL (<2.0); WBC,Urine >182 /hpf (0-5)
[2023-05-08 14:47] LABS: Basophils % (A) 0 %; Eosinophils % (A) 0 %; HCT 27.7 % (39.0-53.0); HGB 8.7 gm/dL (13.0-17.5); Hypochromasia Moderate; Lymphocytes # (A) 0.6 k/uL (1.0-4.8); Lymphocytes % (A) 9 %; MCH 30.9 pg (25.0-35.0); MCHC 31.5 g/dL (31.0-37.0); MCV 98.1 fL (80.0-100.0); Macrocytosis Slight; Mean Platelet Volume 7.7; Monocytes # (A) 0.4 k/uL (0-1.0); Monocytes % (A) 5 %; Neutrophils # (A) 5.5 k/uL (1.3-7.7); Neutrophils % (A) 84 %; Platelet Count 297 k/uL (150-450); RBC 2.82 m/uL (4.30-5.90); RDW 15.6 % (11.5-15.5); WBC 6.6 k/uL (3.8-10.6)
[2023-05-08 14:49] LABS: Specific Gravity,Urine 1.022 (1.001-1.035)
--- NOTE | 2023-05-08 14:52 | XR ---
EXAMINATION TYPE: XR chest 2V DATE OF EXAM: 05/08/2023 COMPARISON: 04/25/2023. HISTORY: Dysrhythmia. TECHNIQUE: Frontal and lateral views of the chest are obtained. IMPRESSION: There are a few linear bands of opacity at the lung bases bilaterally which may represent atelectasis . This is improved since the previous examination. Improving pneumonia would also be a possibility. The cardiac silhouette is moderately enlarged and the pulmonary vessels are within normal limits.
[2023-05-08 15:01] LABS: ALT 15 U/L (4-49); AST 23 U/L (17-59); African American GFR (CKD) 10 (>60 ml/min/1.73 sqM); Albumin 3.4 g/dL (3.5-5.0); Alkaline Phosphatase 71 U/L (38-126); Anion Gap 7 mmol/L; Blood Urea Nitrogen 45 mg/dL (9-20); Calcium 9.8 mg/dL (8.4-10.2); Carbon Dioxide 30 mmol/L (22-30); Chloride 100 mmol/L (98-107); Glucose 103 mg/dL (74-99); Magnesium 1.8 mg/dL (1.6-2.3); Non-African American GFR(CKD) 9 (>60 ml/min/1.73 sqM); Potassium 4.7 mmol/L (3.5-5.1); Sodium 137 mmol/L (137-145); Total Bilirubin 0.5 mg/dL (0.2-1.3); Total Protein 5.7 g/dL (6.3-8.2)
[2023-05-08 15:02] LABS: Partial Thromboplastin Time 26.5 sec (22.0-30.0); Prothrombin Time 10.9 sec (10.0-12.5)
[2023-05-08] MEDS: cefTRIAXone IN SWFI 1,000 MG/10 ML SYRINGE IVP STA ×2 (15:50→15:51)
[2023-05-08] MEDS ORDERED: NITROGLYCERIN SL TABS 0.4 MG TAB SUBLINGUAL PRN (16:07)
[2023-05-08] MEDS ORDERED: NALOXONE 0.4 MG/ML 1 ML VIAL IV PRN (18:05)
[2023-05-08] MEDS ORDERED: MELATONIN 3 MG TABLET PO PRN (18:05)
--- NOTE | 2023-05-08 18:07 | P.HPIM ---
History of Present Illness H&P Date: 05/08/23 Chief Complaint: hematuria Patient is a 52-year-old male with end-stage renal disease on hemodialysis Friday, Friday, Friday, and Friday at home, chronic hypotension, atrial fibrillation not on anticoagulation, GERD, seizure disorder, anemia, and blindness who presented to the hospital with complaints of hematuria. Patient was recently hospitalized here from 04/25 through 04/28 for atrial fibrillation with rapid ventricular response. On arrival to the ER here he was tachycardic with a heart rate of 105 and slightly hypotensive with a blood pressure of 81/5 9. Laboratory analysis included CBC, coags, CMP, magnesium, and troponin which were remarkable for BUN 45, creatinine 6.64, hemoglobin 8.7. Troponin was elevated at 0.071 but significantly down from a max of 23 earlier this month. Urinalysis showed greater than 182 red and white blood cells. In the emergency department he was given 2 g of Rocephin. Arrangements were made for admission. Patient seen and examined at bedside. . He reports since discharge home he has noted hematuria. He had not urinated in the previous 1 year and he is now going to the bathroom 9 times in a 24-hour period he reports that it is mostly blood. He denies any dysuria. He is having some diarrhea which is chronic in nature for him but slightly increased in amount. He denies any fevers, chills, nausea, vomiting. He has chronic back pain which is unchanged. He was having some abdominal pain when he was in the hospital the last time but this has improved significantly since discharge. He continues to have intermittent chest pain that is retrosternal without radiation. His mother reports that his heart rate elevates often when he is up and walking around and they have attributed it likely to that. Vital signs reviewed General: nontoxic, no distress, appears older than stated age Derm: warm, dry Eyes: EOMI, no lid lag, anicteric sclera Cardiovascular: S1S2 irregular and tachycardic, no murmur, no edema Lungs: clear to auscultation bilateral, no rhonchi, no rales, no wheeze, no accessory muscle use Abdominal: soft, nontender to palpation, no guarding Ext: no gross muscle atrophy, no contractures Neuro: CN II-XII grossly intact, No focal neuro deficits Psych: Alert, oriented, appropriate affect Assessment/Plan: UTI, suspect pyelonephritis Hematuria due to above -Rocephin 2 g IV - check CT Abd and pelvis given hx of renal transplant - patient warrent inpatient admission as he is immunosupressed due to his chronic prednisone use. He is at high risk of worsening infection, including developmnet of sepsis adn septic shock with early discharge. Due to his medical complexity he warrants inpatient admission. -Stat urine culture Atrial fibrillation with rapid ventricular response -Reinitiate patient's home metoprolol dosing -Monitor blood pressures closely with his history of hypotension Chronic hypotension -Resume prednisone 10 mg daily, fludrocortisone 0.1 mg daily Chronic: Hypothyroidism Seizure disorder Imaging: As per HPI Data Review: As per HPI The patient is admitted with an anticipated greater than 2 midnight stay for evaluation of urinary tract infection and immunocompromise patient. Surrogate decision-maker: Mother CODE STATUS: Full DVT prophylaxis: SCDs given hematuria Anticipated discharge date: Pending clinical course Anticipated discharge place: Pending clinical course This dictation was prepared using [employer] voice recognition software. Though every attempt is made to correct errors during dictation some may still exist. Past Medical History Past Medical History: Atrial Fibrillation, Dialysis, GERD/Reflux, Renal Disease, Seizure Disorder, Thyroid Disorder Additional Past Medical History / Comment(s): hemodialysis M/W,F,/S at home, diverticulitis,blind, shingles in February, recent falls, kidney transplant in 1998, CAPD when pt was 19y.o, anemia, around 7 grand mal seizures in 2021, nonactive L. arm dialysis graft, R. groin dialysis port. History of Any Multi-Drug Resistant Organisms: None Reported Additional Past Surgical History / Comment(s): fistula placement , thyroidectomy, kidney transplant Past Anesthesia/Blood Transfusion Reactions: Previous Problems w/ Anesthesia Additional Past Anesthesia/Blood Transfusion Reaction / Comment(s): Pt has his surgery done with local anesthetics d/t general anesthesia causing facial edema and difficulty waking. Blood transfusion had no issues Past Psychological History: No Psychological Hx Reported Smoking Status: Never smoker Past Alcohol Use History: None Reported Past Drug Use History: None Reported - Past Family History Mother Family Medical History: Fibromyalgia, Osteoarthritis (OA) Additional Family Medical History / Comment(s): Lupus Family Family Medical History: No Reported History Additional Family Medical History / Comment(s): ETOH abuse Medications and Allergies Home Medications Medication Instructions Recorded Confirmed Type Levothyroxine Sodium [Synthroid] 50 mcg PO DAILY 12/18/17 05/08/23 History Montelukast [Singulair] 10 mg PO HS 12/18/17 05/08/23 History predniSONE 10 mg PO DAILY 04/25/21 05/08/23 History Atorvastatin [Lipitor] 20 mg PO DAILY 10/15/22 05/08/23 History Midodrine HCl [ProAmatine] 10 mg PO QID 10/15/22 05/08/23 History allopurinoL 100 mg PO DAILY 10/15/22 05/08/23 History calcitrioL 0.25 mcg PO SUTUWETHSA 10/15/22 05/08/23 History calcitrioL 0.5 mcg PO MOFR 10/15/22 05/08/23 History Fludrocortisone [Florinef] 0.1 mg PO DAILY 04/25/23 05/08/23 History Omeprazole [PriLOSEC] 20 mg PO DAILY 04/25/23 05/08/23 History Acetaminophen Tab [Tylenol] 650 mg PO Q4HR PRN tab 04/28/23 05/08/23 Rx Aspirin 81 mg PO DAILY #30 tab 04/28/23 05/08/23 Rx Metoprolol Tartrate [Lopressor] 25 mg PO BID #60 tab 04/28/23 05/08/23 Rx Darbepoetin Martin [Aranesp] 60 mcg SQ TH 05/08/23 05/08/23 History Allergies Allergy/AdvReac Type Severity Reaction Status Date / Time adhesive tape Allergy Itching Verified 05/08/23 14:37 codeine Allergy Rash/Hives Verified 05/08/23 14:37 cyclobenzaprine Allergy Rash/Hives Verified 05/08/23 14:37 [From Flexeril] diphenhydramine Allergy Anaphylaxis Verified 05/08/23 14:37 [From Benadryl] hydromorphone [From Dilaudid] Allergy Rash/Hives Verified 05/08/23 14:37 hydroxyzine Allergy Anaphylaxis Verified 05/08/23 14:37 Iodinated Contrast Media Allergy Anaphylaxis Verified 05/08/23 14:37 [Iodinated Contrast- Oral and IV Dye] pantoprazole [From Protonix] Allergy Anaphylaxis Verified 05/08/23 14:37 Penicillins Allergy Rash/Hives Verified 05/08/23 14:37 potassium chloride Allergy Rash/Hives Verified 05/08/23 14:37 pregabalin [From Lyrica] Allergy Anaphylaxis Verified 05/08/23 14:37 sevelamer Allergy Rash/Hives Verified 05/08/23 14:37 warfarin [From Coumadin] Allergy Anaphylaxis Verified 05/08/23 14:37 acetaminophen [From Vicodin] AdvReac Nausea & Verified 05/08/23 14:37 Vomiting aripiprazole [From Abilify] AdvReac Abdominal Verified 05/08/23 14:37 Pain aztreonam AdvReac Unknown Verified 05/08/23 14:37 calcitriol AdvReac Unknown Verified 05/08/23 14:37 cefadroxil AdvReac Unknown Verified 05/08/23 14:37 enalapril AdvReac Unknown Verified 05/08/23 14:37 hydrocodone [From Vicodin] AdvReac Nausea & Verified 05/08/23 14:37 Vomiting Influenza Virus Vaccines AdvReac Unknown Verified 05/08/23 14:37 levofloxacin [From Levaquin] AdvReac Abdominal Verified 05/08/23 14:37 Pain meloxicam [From Mobic] AdvReac Abdominal Verified 05/08/23 14:37 Pain morphine AdvReac Unknown Verified 05/08/23 14:37 propoxyphene AdvReac Unknown Verified 05/08/23 14:37 Sulfa (Sulfonamide AdvReac Vomiting Verified 05/08/23 14:37 Antibiotics) tramadol AdvReac Unknown Verified 05/08/23 14:37 Physical Exam Osteopathic Statement: *. No significant issues noted on an osteopathic structural exam other than those noted in the History and Physical/Consult. Vitals: Vital Signs Temp Pulse Resp BP Pulse Ox 05/08/23 15:34 102 H 16 123/71 99 05/08/23 14:00 98.5 F 97 18 109/73 97 05/08/23 12:58 98.6 F 105 H 18 81/59 97 Intake and Output 05/08/23 05/08/23 05/08/23 06:59 14:59 22:59 Other: Weight 81.647 kg Results CBC & Chem 7: 05/08/23 14:12 05/08/23 14:12 Labs: Abnormal Lab Results - Last 24 Hours (Table) 05/08/23 05/08/23 05/08/23 Range/Units 14:12 14:12 14:12 RBC 2.82 L (4.30-5.90) m/uL Hgb 8.7 L (13.0-17.5) gm/dL Hct 27.7 L (39.0-53.0) % RDW 15.6 H (11.5-15.5) % Lymphocytes # 0.6 L (1.0-4.8) k/uL BUN 45 H (9-20) mg/dL Creatinine 6.64 H (0.66-1.25) mg/dL Glucose 103 H (74-99) mg/dL Troponin I (0.000-0.034) ng/mL Total Protein 5.7 L (6.3-8.2) g/dL Albumin 3.4 L (3.5-5.0) g/dL Urine Protein 1+ H (Negative) Urine Ketones Trace H (Negative) Urine Blood Small H (Negative) Urine Bilirubin 1+ H (Negative) Ur Leukocyte Esterase Moderate H (Negative) Urine RBC >182 H (0-5) /hpf Urine WBC >182 H (0-5) /hpf Urine WBC Clumps Many H (None) /hpf Urine Bacteria Many H (None) /hpf 05/08/23 05/08/23 Range/Units 14:12 16:22 RBC (4.30-5.90) m/uL Hgb (13.0-17.5) gm/dL Hct (39.0-53.0) % RDW (11.5-15.5) % Lymphocytes # (1.0-4.8) k/uL BUN (9-20) mg/dL Creatinine (0.66-1.25) mg/dL Glucose (74-99) mg/dL Troponin I 0.071 H* 0.064 H* (0.000-0.034) ng/mL Total Protein (6.3-8.2) g/dL Albumin (3.5-5.0) g/dL Urine Protein (Negative) Urine Ketones (Negative) Urine Blood (Negative) Urine Bilirubin (Negative) Ur Leukocyte Esterase (Negative) Urine RBC (0-5) /hpf Urine WBC (0-5) /hpf Urine WBC Clumps (None) /hpf Urine Bacteria (None) /hpf
--- NOTE | 2023-05-08 21:18 | CT ---
EXAMINATION TYPE: CT abdomen pelvis wo con DATE OF EXAM: 05/08/2023 HISTORY: Pyelonephritis, abdominal pain. CT DLP: 684.7 mGycm. Automated Exposure Control for Dose Reduction was Utilized. TECHNIQUE: CT scan of the abdomen and pelvis is performed without oral or IV contrast. COMPARISON: 04/25/2023 CT FINDINGS: LUNG BASES: Stable small bibasilar abnormal opacities, seen on 04/25/2023. Moderate-marked cardiomegaly with no pericardial effusion. Prominent coronary calcifications and prominent aortic valve plane and mitral valve plane calcifications. LIVER/GB: No significant abnormality is appreciated. PANCREAS: No significant abnormality is seen. SPLEEN: No significant abnormality is seen. ADRENALS: No significant abnormality is seen. KIDNEYS: Right lower quadrant transplant kidney shows marked interval improvement in the obstructive uropathy seen on the CT 04/25/2023. No perirenal or periureteral edematous change or fluid or gas colle ctions. 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 BOWEL: No dilated loops of bowel. No focal inflammatory change. PELVIC VISCERA: Unremarkable. LYMPH NODES: No greater than 1cm abdominal or pelvic lymph nodes are appreciated. OSSEOUS STRUCTURES: No significant abnormality is seen. Limitation of the study: Without IV contrast, there is limited CT sensitivity for focal visceral lesions, intraluminal filling defects, and vascular pathology. IMPRESSION: Interval improvement in the transplant kidney hydronephrosis seen on 04/25/2023.
[2023-05-08] MEDS: MONTELUKAST 10 MG TAB PO SCH (21:21)
[2023-05-08] MEDS: METOPROLOL TARTRATE 25 MG TAB PO SCH (21:21)
[2023-05-08] MEDS: ACETAMINOPHEN TAB 325 MG TAB PO PRN (21:31)
[2023-05-09] MEDS: LEVOTHYROXINE 50 MCG TAB PO SCH (06:10)
[2023-05-09] MEDS: MIDODRINE 5 MG TAB PO SCH (06:10)
[2023-05-09] MEDS: NON FORMULARY DRUG (Omeprazole 20 MG Capsule.Dr) PO SCH (06:12)
[2023-05-09] MEDS: ATORVASTATIN 20 MG TAB PO SCH (09:32)
[2023-05-09] MEDS: FLUDROCORTISONE 0.1 MG TAB PO SCH (09:32)
[2023-05-09] MEDS: predniSONE 10 MG TAB PO SCH (09:32)
[2023-05-09] MEDS: allopurinoL 100 MG TAB PO SCH (09:32)
--- NOTE | 2023-05-09 10:48 | P.NPCON ---
History of Present Illness - Reason for Consult end stage renal disease - History of Present Illness Patient is a 52-year-old male with end-stage renal disease maintained on home hemodialysis. He is admitted to the hospital with history of having noticed blood in the urine. Patient was noted to have significant pyuria with WBCs more than 182. Currently maintained on IV antibiotics. No history of fever chills nausea or vomiting. No complaints of chest pain. Review of Systems PER HPI Past Medical History Past Medical History: Atrial Fibrillation, Dialysis, GERD/Reflux, Renal Disease, Seizure Disorder, Thyroid Disorder Additional Past Medical History / Comment(s): hemodialysis M/W,F,/S at home, diverticulitis,blind, shingles in February, recent falls, kidney transplant in 1998, CAPD when pt was 19y.o, anemia, around 7 grand mal seizures in 2021, nonactive L. arm dialysis graft, R. groin dialysis port. History of Any Multi-Drug Resistant Organisms: None Reported Additional Past Surgical History / Comment(s): fistula placement , thyroidectomy, kidney transplant Past Anesthesia/Blood Transfusion Reactions: Previous Problems w/ Anesthesia Additional Past Anesthesia/Blood Transfusion Reaction / Comment(s): Pt has his surgery done with local anesthetics d/t general anesthesia causing facial edema and difficulty waking. Blood transfusion had no issues Past Psychological History: No Psychological Hx Reported Additional Psychological History / Comment(s): Pt resides with his mother who is his caregiver. Pt ambulates without device/he memorizes where furniture is placed. Mother performs hemodialysis 4 days a week. She is the cat driver. No home care. Smoking Status: Never smoker Past Alcohol Use History: None Reported Past Drug Use History: None Reported - Past Family History Mother Family Medical History: Fibromyalgia, Osteoarthritis (OA) Additional Family Medical History / Comment(s): Lupus Family Family Medical History: No Reported History Additional Family Medical History / Comment(s): ETOH abuse Medications and Allergies Home Medications Medication Instructions Recorded Confirmed Type Levothyroxine Sodium [Synthroid] 50 mcg PO DAILY 12/18/17 05/08/23 History Montelukast [Singulair] 10 mg PO HS 12/18/17 05/08/23 History predniSONE 10 mg PO DAILY 04/25/21 05/08/23 History Atorvastatin [Lipitor] 20 mg PO DAILY 10/15/22 05/08/23 History Midodrine HCl [ProAmatine] 10 mg PO QID 10/15/22 05/08/23 History allopurinoL 100 mg PO DAILY 10/15/22 05/08/23 History calcitrioL 0.25 mcg PO SUTUWETHSA 10/15/22 05/08/23 History calcitrioL 0.5 mcg PO MOFR 10/15/22 05/08/23 History Fludrocortisone [Florinef] 0.1 mg PO DAILY 04/25/23 05/08/23 History Omeprazole [PriLOSEC] 20 mg PO DAILY 04/25/23 05/08/23 History Acetaminophen Tab [Tylenol] 650 mg PO Q4HR PRN tab 04/28/23 05/08/23 Rx Aspirin 81 mg PO DAILY #30 tab 04/28/23 05/08/23 Rx Metoprolol Tartrate [Lopressor] 25 mg PO BID #60 tab 04/28/23 05/08/23 Rx Darbepoetin Martin [Aranesp] 60 mcg SQ TH 05/08/23 05/08/23 History Allergies Allergy/AdvReac Type Severity Reaction Status Date / Time adhesive tape Allergy Itching Verified 05/08/23 14:37 codeine Allergy Rash/Hives Verified 05/08/23 14:37 cyclobenzaprine Allergy Rash/Hives Verified 05/08/23 14:37 [From Flexeril] diphenhydramine Allergy Anaphylaxis Verified 05/08/23 14:37 [From Benadryl] hydromorphone [From Dilaudid] Allergy Rash/Hives Verified 05/08/23 14:37 hydroxyzine Allergy Anaphylaxis Verified 05/08/23 14:37 Iodinated Contrast Media Allergy Anaphylaxis Verified 05/08/23 14:37 [Iodinated Contrast- Oral and IV Dye] pantoprazole [From Protonix] Allergy Anaphylaxis Verified 05/08/23 14:37 Penicillins Allergy Rash/Hives Verified 05/08/23 14:37 potassium chloride Allergy Rash/Hives Verified 05/08/23 14:37 pregabalin [From Lyrica] Allergy Anaphylaxis Verified 05/08/23 14:37 sevelamer Allergy Rash/Hives Verified 05/08/23 14:37 warfarin [From Coumadin] Allergy Anaphylaxis Verified 05/08/23 14:37 acetaminophen [From Vicodin] AdvReac Nausea & Verified 05/08/23 14:37 Vomiting aripiprazole [From Abilify] AdvReac Abdominal Verified 05/08/23 14:37 Pain aztreonam AdvReac Unknown Verified 05/08/23 14:37 calcitriol AdvReac Unknown Verified 05/08/23 14:37 cefadroxil AdvReac Unknown Verified 05/08/23 14:37 enalapril AdvReac Unknown Verified 05/08/23 14:37 hydrocodone [From Vicodin] AdvReac Nausea & Verified 05/08/23 14:37 Vomiting Influenza Virus Vaccines AdvReac Unknown Verified 05/08/23 14:37 levofloxacin [From Levaquin] AdvReac Abdominal Verified 05/08/23 14:37 Pain meloxicam [From Mobic] AdvReac Abdominal Verified 05/08/23 14:37 Pain morphine AdvReac Unknown Verified 05/08/23 14:37 propoxyphene AdvReac Unknown Verified 05/08/23 14:37 Sulfa (Sulfonamide AdvReac Vomiting Verified 05/08/23 14:37 Antibiotics) tramadol AdvReac Unknown Verified 05/08/23 14:37 Physical Exam Vitals: Vital Signs Temp Pulse Pulse Pulse Resp BP BP 05/09/23 07:00 125 H 16 152/87 05/09/23 06:07 113/73 05/09/23 02:00 111 H 16 135/89 05/08/23 21:30 97.8 F 111 H 16 141/82 05/08/23 21:07 98.2 F 105 H 18 128/92 05/08/23 18:40 98.2 F 97 16 112/75 05/08/23 15:34 102 H 16 123/71 05/08/23 14:00 98.5 F 97 102 H 18 109/73 05/08/23 12:58 98.6 F 105 H 18 81/59 Pulse Ox 05/09/23 07:00 97 05/09/23 06:07 05/09/23 02:00 95 05/08/23 21:30 100 05/08/23 21:07 97 05/08/23 18:40 99 05/08/23 15:34 99 05/08/23 14:00 97 05/08/23 12:58 97 Intake and Output 05/08/23 05/09/23 05/09/23 22:59 06:59 14:59 Intake Total 540 240 Output Total 2 Balance 540 -2 240 Intake: Oral 540 240 Output: Urine 2 Other: Weight 81.647 kg Patient is awake, comfortable, no acute distress Alert oriented x 3 Examination of the heart S1 and S2 Examination of the lungs bilateral breath sounds are heard Abdomen is soft nontender Examination of lower extremities shows trace edema COURT WORKER exam grossly intact Results - Lab Results Most recent lab results Calcium 9.8 mg/dL (8.4-10.2) 05/08/23 14:12 Magnesium 1.8 mg/dL (1.6-2.3) 05/08/23 14:12 05/08/23 14:12 05/08/23 14:12 Assessment and Plan Assessment: 1. End-stage renal disease on home hemodialysis. Patient has a tunneled femoral catheter. 2. UTI maintained on antibiotics 3. A-fib with RVR with recent hospitalization 4. Chronic hypotension maintained on Florinef, midodrine. Patient is also maintained on prednisone which he has continued after his renal transplant fail ed. Plan: Hemodialysis today and again in a.m. Use heparin with hemodialysis Continue with calcitriol Continue with antibiotics.
--- NOTE | 2023-05-09 11:02 | P.CRDCN ---
History of Present Illness History of present illness: HISTORY OF PRESENT ILLNESS: This is a 52-year-old male with a past medical history significant for atrial fibrillation not on anticoagulation, end-stage renal disease on hemodialysis, kidney transplant, aortic stenosis, and hypotension. Patient follows in the office with Dr. Serrano. We have been asked to see the patient in consultation for elevated troponins. Patient examined at the bedside. Patient presented to the hospital due to hematuria. Patient denies having any chest pain or pressure. He denies any shortness of breath. Denies any dizziness or lightheadedness. DIAGNOSTICS: - EKG reveals atrial fibrillation with a heart rate of 106. - Chest xray there are a few linear bands of opacity at the lung bases bilaterally which may represent atelectasis. This is improved since previous examination. Improving pneumonia would also be a possibility. The cardiac silhouette is moderately enlarged and the pulmonary vessels are within normal limits.. - Laboratory data: WBC 6.6. Hemoglobin 8.7. Platelet count 297. Sodium 137. Potassium 4.7. BUN 45. Creatinine 6.64. Troponin 0.071. 0.064. 0.069. - Current home cardiac medications include aspirin 81 mg daily, Lipitor 20 mg daily, metoprolol tartrate 25 mg twice a day, midodrine 10 mg 4 times a day. - Most recent echocardiogram obtained on 04/25/2023 revealed ejection fraction 55 to 60% mild LVH, mild to moderate MR, mild AR, mild TR REVIEW OF SYSTEMS: At the time of my exam: CONSTITUTIONAL: Denies fever or chills. HEENT: Denies blurred vision, vision changes, or eye pain. Denies hemoptysis CARDIOVASCULAR: Denies chest pain. Denies orthopnea. Denies PND. Denies palpitations RESPIRATORY: Denies shortness of breath. GASTROINTESTINAL: Denies abdominal pain. Denies nausea or vomiting. HEMATOLOGIC: Denies bleeding disorders. GENITOURINARY: Denies any blood in urine. SKIN: Denies pruitis. Denies rash. PHYSICAL EXAM: VITAL SIGNS: Reviewed. GENERAL: Well-developed in no acute distress. HEENT: Head is normocephalic. Pupils are equal, round. Sclerae anicteric. Mucous membranes of the mouth are moist. Neck supple. No JVD or thyromegaly LUNGS: Respirations even and unlabored. Lungs essentially clear to auscultation bilaterally. HEART: Irregular rate and rhythm. S1 and S2 heard. ABDOMEN: Soft. Nondistended. Nontender. EXTREMITIES: Normal range of motion. No clubbing or cyanosis. Peripheral pul ses intact. No lower extremity edema NEUROLOGIC: Awake and alert. Oriented x 3. ASSESSMENT: Hematuria UTI with suspected pyelonephritis End-stage renal disease on hemodialysis History of failed kidney transplantation Abnormal troponins, flat, not suggestive of acute coronary syndrome Persistent atrial fibrillation with mild RVR, unable to tolerate anticoagulation due to bleeding issues per patient Valvular heart disease History of hypotension, on midodrine PLAN: No need to repeat echocardiogram as this was obtained earlier this month Resume home cardiac medications Increase metoprolol to 25 mg 3 times a day for optimal heart rate control Consider Watchman device on an outpatient basis as patient is unable to tolerate anticoagulation Further recommendations pending patient course Nurse practitioner note has been reviewed by physician. Signing provider agrees with the documented findings, assessment, and plan of care documented by [employer] as a scribe. Past Medical History Past Medical History: Atrial Fibrillation, Dialysis, GERD/Reflux, Renal Disease, Seizure Disorder, Thyroid Disorder Additional Past Medical History / Comment(s): hemodialysis M/W,F,/S at home, diverticulitis,blind, shingles in February, recent falls, kidney transplant in 1998, CAPD when pt was 19y.o, anemia, around 7 grand mal seizures in 2021, nonactive L. arm dialysis graft, R. groin dialysis port. History of Any Multi-Drug Resistant Organisms: None Reported Additional Past Surgical History / Comment(s): fistula placement , thyroidectomy, kidney transplant Past Anesthesia/Blood Transfusion Reactions: Previous Problems w/ Anesthesia Additional Past Anesthesia/Blood Transfusion Reaction / Comment(s): Pt has his surgery done with local anesthetics d/t general anesthesia causing facial edema and difficulty waking. Blood transfusion had no issues Past Psychological History: No Psychological Hx Reported Additional Psychological History / Comment(s): Pt resides with his mother who is his caregiver. Pt ambulates without device/he memorizes where furniture is placed. Mother performs hemodialysis 4 days a week. 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 No home care. Smoking Status: Never smoker Past Alcohol Use History: None Reported Past Drug Use History: None Reported - Past Family History Mother Family Medical History: Fibromyalgia, Osteoarthritis (OA) Additional Family Medical History / Comment(s): Lupus Family Family Medical History: No Reported History Additional Family Medical History / Comment(s): ETOH abuse Medications and Allergies Home Medications Medication Instructions Recorded Confirmed Type Levothyroxine Sodium [Synthroid] 50 mcg PO DAILY 12/18/17 05/08/23 History Montelukast [Singulair] 10 mg PO HS 12/18/17 05/08/23 History predniSONE 10 mg PO DAILY 04/25/21 05/08/23 History Atorvastatin [Lipitor] 20 mg PO DAILY 10/15/22 05/08/23 History Midodrine HCl [ProAmatine] 10 mg PO QID 10/15/22 05/08/23 History allopurinoL 100 mg PO DAILY 10/15/22 05/08/23 History calcitrioL 0.25 mcg PO SUTUWETHSA 10/15/22 05/08/23 History calcitrioL 0.5 mcg PO MOFR 10/15/22 05/08/23 History Fludrocortisone [Florinef] 0.1 mg PO DAILY 04/25/23 05/08/23 History Omeprazole [PriLOSEC] 20 mg PO DAILY 04/25/23 05/08/23 History Acetaminophen Tab [Tylenol] 650 mg PO Q4HR PRN tab 04/28/23 05/08/23 Rx Aspirin 81 mg PO DAILY #30 tab 04/28/23 05/08/23 Rx Metoprolol Tartrate [Lopressor] 25 mg PO BID #60 tab 04/28/23 05/08/23 Rx Darbepoetin Martin [Aranesp] 60 mcg SQ TH 05/08/23 05/08/23 History Allergies Allergy/AdvReac Type Severity Reaction Status Date / Time adhesive tape Allergy Itching Verified 05/08/23 14:37 codeine Allergy Rash/Hives Verified 05/08/23 14:37 cyclobenzaprine Allergy Rash/Hives Verified 05/08/23 14:37 [From Flexeril] diphenhydramine Allergy Anaphylaxis Verified 05/08/23 14:37 [From Benadryl] hydromorphone [From Dilaudid] Allergy Rash/Hives Verified 05/08/23 14:37 hydroxyzine Allergy Anaphylaxis Verified 05/08/23 14:37 Iodinated Contrast Media Allergy Anaphylaxis Verified 05/08/23 14:37 [Iodinated Contrast- Oral and IV Dye] pantoprazole [From Protonix] Allergy Anaphylaxis Verified 05/08/23 14:37 Penicillins Allergy Rash/Hives Verified 05/08/23 14:37 potassium chloride Allergy Rash/Hives Verified 05/08/23 14:37 pregabalin [From Lyrica] Allergy Anaphylaxis Verified 05/08/23 14:37 sevelamer Allergy Rash/Hives Verified 05/08/23 14:37 warfarin [From Coumadin] Allergy Anaphylaxis Verified 05/08/23 14:37 acetaminophen [From Vicodin] AdvReac Nausea & Verified 05/08/23 14:37 Vomiting aripiprazole [From Abilify] AdvReac Abdominal Verified 05/08/23 14:37 Pain aztreonam AdvReac Unknown Verified 05/08/23 14:37 calcitriol AdvReac Unknown Verified 05/08/23 14:37 cefadroxil AdvReac Unknown Verified 05/08/23 14:37 enalapril AdvReac Unknown Verified 05/08/23 14:37 hydrocodone [From Vicodin] AdvReac Nausea & Verified 05/08/23 14:37 Vomiting Influenza Virus Vaccines AdvReac Unknown Verified 05/08/23 14:37 levofloxacin [From Levaquin] AdvReac Abdominal Verified 05/08/23 14:37 Pain meloxicam [From Mobic] AdvReac Abdominal Verified 05/08/23 14:37 Pain morphine AdvReac Unknown Verified 05/08/23 14:37 propoxyphene AdvReac Unknown Verified 05/08/23 14:37 Sulfa (Sulfonamide AdvReac Vomiting Verified 05/08/23 14:37 Antibiotics) tramadol AdvReac Unknown Verified 05/08/23 14:37 Physical Exam Vitals: Vital Signs Temp Pulse Pulse Pulse Resp BP BP 05/09/23 07:00 125 H 16 152/87 05/09/23 06:07 113/73 05/09/23 02:00 111 H 16 135/89 05/08/23 21:30 97.8 F 111 H 16 141/82 05/08/23 21:07 98.2 F 105 H 18 128/92 05/08/23 18:40 98.2 F 97 16 112/75 05/08/23 15:34 102 H 16 123/71 05/08/23 14:00 98.5 F 97 102 H 18 109/73 05/08/23 12:58 98.6 F 105 H 18 81/59 Pulse Ox 05/09/23 07:00 97 05/09/23 06:07 05/09/23 02:00 95 05/08/23 21:30 100 05/08/23 21:07 97 05/08/23 18:40 99 05/08/23 15:34 99 05/08/23 14:00 97 05/08/23 12:58 97 Intake and Output 05/08/23 05/09/23 05/09/23 22:59 06:59 14:59 Intake Total 540 240 Output Total 2 Balance 540 -2 240 Intake: Oral 540 240 Output: Urine 2 Other: Weight 81.647 kg Results 05/08/23 14:12 05/08/23 14:12 Cardiac Enzymes 05/08/23 05/08/23 05/08/23 Range/Units 14:12 14:12 16:22 AST 23 (17-59) U/L Troponin I 0.071 H* 0.064 H* (0.000-0.034) ng/mL 05/08/23 Range/Units 19:28 AST (17-59) U/L Troponin I 0.069 H* (0.000-0.034) ng/mL Coagulation 05/08/23 Range/Units 14:12 PT 10.9 (10.0-12.5) sec APTT 26.5 (22.0-30.0) sec CBC 05/08/23 Range/Units 14:12 WBC 6.6 (3.8-10.6) k/uL RBC 2.82 L (4.30-5.90) m/uL Hgb 8.7 L (13.0-17.5) gm/dL Hct 27.7 L (39.0-53.0) % Plt Count 297 (150-450) k/uL Comprehensive Metabolic Panel 05/08/23 Range/Units 14:12 Sodium 137 (137-145) mmol/L Potassium 4.7 (3.5-5.1) mmol/L Chloride 100 (98-107) mmol/L Carbon Dioxide 30 (22-30) mmol/L BUN 45 H (9-20) mg/dL Creatinine 6.64 H (0.66-1.25) mg/dL Glucose 103 H (74-99) mg/dL Calcium 9.8 (8.4-10.2) mg/dL AST 23 (17-59) U/L ALT 15 (4-49) U/L Alkaline Phosphatase 71 (38-126) U/L Total Protein 5.7 L (6.3-8.2) g/dL Albumin 3.4 L (3.5-5.0) g/dL Current Medications Generic Name Dose Route Start Last Admin Trade Name Freq PRN Reason Stop Dose Admin Acetaminophen 650 mg 05/08/23 17:45 05/09/23 10:23 Acetaminophen Tab 325 Mg Tab PO 650 mg Q4HR PRN Administration Pain Allopurinol 100 mg 05/09/23 09:00 05/09/23 09:32 Allopurinol 100 Mg Tab PO 100 mg DAILY BASIL Administration Atorvastatin Calcium 20 mg 05/09/23 09:00 05/09/23 09:32 Atorvastatin 20 Mg Tab PO 20 mg DAILY BASIL Administration Calcitriol 0.25 mcg 05/10/23 09:00 Calcitriol 0.25 Mcg Cap PO SUTUWETHSA BASIL Calcitriol 0.5 mcg 05/09/23 09:00 05/09/23 10:25 Calcitriol 0.25 Mcg Cap PO Not Given MOFR BASIL Fludrocortisone Acetate 0.1 mg 05/09/23 09:00 05/09/23 09:32 Fludrocortisone 0.1 Mg Tab PO 0.1 mg DAILY BASIL Administration Ceftriaxone Sodium 1 gm/ 50 mls @ 100 mls/hr 05/09/23 09:00 05/09/23 09:33 Sodium Chloride IVPB 100 mls/hr Q24HR BASIL Administration Protocol Ceftriaxone Sodium 2 gm/ 50 mls @ 100 mls/hr 05/09/23 09:00 05/09/23 10:24 Sodium Chloride IVPB Not Given Q24HR BASIL Protocol Levothyroxine Sodium 50 mcg 05/09/23 06:30 05/09/23 06:10 Levothyroxine 50 Mcg Tab PO 50 mcg DAILY@0630 BASIL Administration Melatonin 3 mg 05/08/23 18:05 Melatonin 3 Mg Tablet PO HS PRN Insomnia Metoprolol Tartrate 25 mg 05/09/23 16:00 Metoprolol Tartrate 25 Mg Tab PO TID BASIL Midodrine 10 mg 05/09/23 06:00 05/09/23 09:33 Midodrine 5 Mg Tab PO 10 mg 0600,1000,1400,1800 BASIL Administration Montelukast Sodium 10 mg 05/08/23 21:00 05/08/23 21:21 Montelukast 10 Mg Tab PO 10 mg HS BASIL Administration Naloxone HCl 0.2 mg 05/08/23 18:05 Naloxone 0.4 Mg/Ml 1 Ml Vial IV Q2M PRN Opioid Reversal Nitroglycerin 0.4 mg 05/08/23 16:07 Nitroglycerin Sl Tabs 0.4 Mg Tab SUBLINGUAL Q5M PRN Chest Pain Non-Formulary Medication 20 mg 05/09/23 07:30 05/09/23 06:12 Omeprazole PO Not Given [facility] Ondansetron HCl 4 mg 05/08/23 18:05 Ondansetron 4 Mg/2 Ml Vial IVP Q8HR PRN Nausea And Vomiting Prednisone 10 mg 05/09/23 09:00 05/09/23 09:32 Prednisone 10 Mg Tab PO 10 mg DAILY BASIL Administration Intake and Output 05/08/23 05/09/23 05/09/23 22:59 06:59 14:59 Intake Total 540 240 Output Total 2 Balance 540 -2 240 Intake: Oral 540 240 Output: Urine 2 Other: Weight 81.647 kg 05/08/23 14:12 05/08/23 14:12
[2023-05-09 12:46] LABS: HCT 28.4 % (39.0-53.0); HGB 8.6 gm/dL (13.0-17.5); Hypochromasia Moderate; MCH 30.3 pg (25.0-35.0); MCHC 30.2 g/dL (31.0-37.0); MCV 100.2 fL (80.0-100.0); Macrocytosis Slight; Mean Platelet Volume 7.2; Platelet Count 267 k/uL (150-450); RBC 2.83 m/uL (4.30-5.90); RDW 15.3 % (11.5-15.5); WBC 5.1 k/uL (3.8-10.6)
[2023-05-09 12:56] LABS: African American GFR (CKD) 8 (>60 ml/min/1.73 sqM); Anion Gap 11 mmol/L; Blood Urea Nitrogen 57 mg/dL (9-20); Calcium 9.3 mg/dL (8.4-10.2); Carbon Dioxide 27 mmol/L (22-30); Chloride 102 mmol/L (98-107); Glucose 94 mg/dL (74-99); Non-African American GFR(CKD) 7 (>60 ml/min/1.73 sqM); Potassium 4.8 mmol/L (3.5-5.1); Sodium 140 mmol/L (137-145)
[2023-05-09] MEDS: ASPIRIN 325 MG TAB PO SCH (15:15)
[2023-05-09] MEDS: METOPROLOL TARTRATE 25 MG TAB PO SCH (16:40)
--- NOTE | 2023-05-09 17:36 | P.PN ---
Subjective Progress Note Date: 05/09/23 (delayed charting seen at approx 0915) Patient is a 52-year-old male with end-stage renal disease on hemodialysis Friday, Friday, Friday, and Friday at home, chronic hypotension, atrial fibrillation not on anticoagulation, GERD, seizure disorder, anemia, and blindness who presented to the hospital with complaints of hematuria. Patient was recently hospitalized here from 04/25 through 04/28 for atrial fibrillation with rapid ventricular response. On arrival to the ER here he was tachycardic with a heart rate of 105 and slightly hypotensive with a blood pressure of 81/59. Laboratory analysis included CBC, coags, CMP, magnesium, and troponin which were remarkable for BUN 45, creatinine 6.64, hemoglobin 8.7. Troponin was elevated at 0.071 but significantly down from a max of 23 earlier this month. Urinalysis showed greater than 182 red and white blood cells. In the emergency department he was given 2 g of Rocephin. Arrangements were made for admission. He was continued on Rocephin. Nephrology was consulted and his home dialysis was resumed. Patient seen and examined at bedside. He is doing well today. Abdominal discomfort is slightly better. No chest pain, shortness of breath, nausea, vomiting. Vital signs reviewed General: Nontoxic, no distress, appears at stated age Cardiovascular: S1S2 reg, no murmur Lungs: CTA bilateral, no rhonchi, no rales, no accessory muscle use Abdominal: Soft, nontender to palpation, no guarding Ext: No gross muscle atrophy, no edema b/l lower extremities, no contractures Neuro: CN II-XI grossly intact, no focal neuro deficits Psych: Alert, oriented, appropriate affect Assessment/Plan: UTI, suspect pyelonephritis Hematuria due to above -Rocephin 2 g IV - Await urine culture ESRD -Nephrology note reviewed: Continue with home hemodialysis., Continue with calcitriol and antibiotics Elevated troponin, suspected downtrending relation to recent type II non-STEMI Chest pain -Cardiology consult reviewed: No need to repeat echo, increase metoprolol to 25 mg 3 times daily, consider Watchman device on an outpatient as the patient has been unable to tolerate anticoagulation. Atrial fibrillation with rapid ventricular response -Reinitiate patient's home metoprolol dosing -Monitor blood pressures closely with his history of hypotension -Aspirin 81 mg daily, Lipitor 20 mg daily, metoprolol 25 mg 3 times daily Chronic hypotension -Resume prednisone 10 mg daily, fludrocortisone 0.1 mg daily Chronic: Hypothyroidism Seizure disorder Imaging: CT abdomen pelvis: Interval improvement in the transplant kidney hydronephrosis from 04/25/2023 Data Review: Labs reviewed from today include CBC and basic metabolic profile which are remarkable for hemoglobin 8.6, BUN 57, creatinine 8.44. DVT prophylaxis: SCDs Anticipated discharge date: 24 to [address]: Home This dictation was prepared using [employer] voice recognition software. Though every attempt is made to correct errors during dictation some may still exist. Objective - Vital Signs Vital signs: Vital Signs Temp 97.3 F L 05/09/23 17:14 Pulse 80 05/09/23 17:14 Resp 16 05/09/23 17:14 BP 94/53 05/09/23 17:14 Pulse Ox 94 L 05/09/23 17:14 FiO2 Intake & Output 05/08/23 05/09/23 05/09/23 18:59 06:59 18:59 Intake Total 540 1058 Output Total 2 791 Balance 538 267 Weight 81.647 kg 81.647 kg Intake: Intake, IV Titration 100 Amount cefTRIAXone 2 gm In 100 Sodium Chloride 0.9% 50 ml @ 100 mls/hr IVPB Q24HR [facility] Rx#:[id number] Oral 540 358 Hemodialysis 600 Output: Urine 2 Hemodialysis 791 - Labs CBC & Chem 7: 05/09/23 11:52 05/09/23 11:52 Labs: Abnormal Lab Results - Last 24 Hours (Table) 05/08/23 05/09/23 05/09/23 Range/Units 19:28 11:52 11:52 RBC 2.83 L (4.30-5.90) m/uL Hgb 8.6 L (13.0-17.5) gm/dL Hct 28.4 L (39.0-53.0) % MCV 100.2 H (80.0-100.0) fL MCHC 30.2 L (31.0-37.0) g/dL BUN 57 H (9-20) mg/dL Creatinine 8.44 H* (0.66-1.25) mg/dL Troponin I 0.069 H* (0.000-0.034) ng/mL
[2023-05-09 19:00] LABS: Chol/HDL Ratio 3.52 Ratio; LDL Cholesterol,Calculated 51.2 mg/dL (0.0-131.0)
--- NOTE | 2023-05-10 10:30 | P.PN ---
Subjective Patient is seen for follow-up for end-stage renal disease. Patient complained of chest discomfort yesterday with hemodialysis and he was taken off early. Patient is scheduled for hemodialysis again today. Patient states that he does have chest discomfort on and off with home hemodialysis treatments. This usually improves with a few saline flushes. Urine culture showed no growth. No obvious blood in the urine per patient. Objective - Vital Signs Vital signs: Vital Signs Temp 98.1 F 05/09/23 20:00 Pulse 107 H 05/10/23 02:00 Resp 16 05/10/23 02:00 BP 112/66 05/10/23 06:44 Pulse Ox 98 05/10/23 02:00 FiO2 Intake & Output 05/09/23 05/10/23 05/10/23 18:59 06:59 18:59 Intake Total 1176 1080 118 Output Total 791 Balance 385 1080 118 Weight 83.1 kg Intake: Intake, IV Titration 100 Amount cefTRIAXone 2 gm In 100 Sodium Chloride 0.9% 50 ml @ 100 mls/hr IVPB Q24HR [facility] Rx#:[id number] Oral 476 1080 118 Hemodialysis 600 Output: Hemodialysis 791 - Exam Patient is awake, comfortable, no acute distress Examination of the heart S1 and S2 Examination of the lungs bilateral breath sounds are heard Examination of lower extremity shows trace edema bilaterally [employer] exam grossly intact - Labs CBC & Chem 7: 05/09/23 11:52 05/09/23 11:52 Labs: Abnormal Lab Results - Last 24 Hours (Table) 05/09/23 05/09/23 Range/Units 11:52 11:52 RBC 2.83 L (4.30-5.90) m/uL Hgb 8.6 L (13.0-17.5) gm/dL Hct 28.4 L (39.0-53.0) % MCV 100.2 H (80.0-100.0) fL MCHC 30.2 L (31.0-37.0) g/dL BUN 57 H (9-20) mg/dL Creatinine 8.44 H* (0.66-1.25) mg/dL Triglycerides 159.00 H (0.00-149.00) mg/dL HDL Cholesterol 33.00 L (40.00-60.00) mg/dL Microbiology - Last 24 Hours (Table) 02/22/24 14:12 Urine Culture - Final Urine,Voided 05/08/23 15:45 Blood Culture - Preliminary Blood 05/08/23 15:20 Blood Culture - Preliminary Blood Assessment and Plan Assessment: 1. End-stage renal disease on home hemodialysis. Patient has a tunneled f emoral catheter. 2. UTI maintained on antibiotics. Urine culture was negative. Agree with repeating UA and urology consult for possible cystoscopy. Continue with antibiotics 3. A-fib with RVR with recent hospitalization 4. Chronic hypotension maintained on Florinef, midodrine. Patient is also maintained on prednisone which he has continued after his renal transplant failed. Plan: Hemodialysis today Use heparin with hemodialysis Continue with calcitriol Continue with antibiotics. Repeat UA and agree with urology consult.
[2023-05-10] MEDS: DARBEPOETIN ALFA 40 MCG/0.4 ML SYRINGE SQ SCH (12:47)
[2023-05-10] MEDS: ASPIRIN 81 MG PO SCH (12:48)
--- NOTE | 2023-05-10 13:47 | P.PN ---
Subjective Progress Note Date: 05/10/23 The patient is a 52-year-old male who follows in the office with Dr. Serrano. He presented to the hospital with hematuria and cardiology was consulted for elevated troponins. The patient is on hemodialysis for end-stage renal disease. Over the course of his admission beta-blockers have been maximized for heart rate control. Blood pressures have been relatively stable, however the patient does use midodrine 3 times per day. The patient was interviewed and examined resting comfortably in bed. The patient states he does have chronic chest discomfort which is midsternal and unchanged. No difficulty breathing or orthopnea. No dizziness or lightheadedness. GENERAL: Well-appearing, well-nourished and in no acute distress. NECK: Supple without JVD or thyromegaly. LUNGS: Breath sounds diminished to auscultation bilaterally. Respiration equal and unlabored. No wheezes, rales or rhonchi. HEART: Irregular rate and rhythm without murmurs, rubs or gallops. S1 and S2 heard. EXTREMITIES: Normal range of motion, no edema. No clubbing or cyanosis. Peripheral pulses intact and strong. TELEMETRY: Persistent atrial fibrillation IMPRESSION: Persistent atrial fibrillation, heart rates in the 90s to 100s Valvular heart disease History of hypertension, on midodrine Abnormal troponins, flat, not suggestive of acute coronary syndrome End-stage renal disease on hemodialysis History of failed kidney transplant PLAN: Continue current medication for rate control Consider Watchman device on an outpatient basis Further recommendations based upon clinical course I am dictating on behalf of Dr Miguel A Kramer's history/physical and assessment/plan. Objective - Vital Signs Vital signs: Vital Signs Temp 97.8 F 05/10/23 08:20 Pulse 116 H 05/10/23 08:20 Resp 16 05/10/23 08:20 BP 114/72 05/10/23 08:20 Pulse Ox 97 05/10/23 08:20 FiO2 Intake & Output 05/09/23 05/10/23 05/10/23 18:59 06:59 18:59 Intake Total 1176 1080 118 Output Total 791 Balance 385 1080 118 Weight 83.1 kg Intake: Intake, IV Titration 100 Amount cefTRIAXone 2 gm In 100 Sodium Chloride 0.9% 50 ml @ 100 mls/hr IVPB Q24HR [facility] Rx#:[id number] Oral 476 1080 118 Hemodialysis 600 Output: Hemodialysis 791 - Labs CBC & Chem 7: 05/09/23 11:52 05/09/23 11:52 Labs: Abnormal Lab Results - Last 24 Hours (Table) 05/09/23 Range/Units 11:52 Triglycerides 159.00 H (0.00-149.00) mg/dL HDL Cholesterol 33.00 L (40.00-60.00) mg/dL Microbiology - Last 24 Hours (Table) 05/08/23 14:12 Urine Culture - Final Urine,Voided 05/08/23 15:45 Blood Culture - Preliminary Blood 05/08/23 15:20 Blood Culture - Preliminary Blood
--- NOTE | 2023-05-10 14:02 | P.GSCN ---
History of Present Illness Consult date: 05/10/23 Reason for Consult: Gross hematuria Requesting physician: Lynette Spring History of present illness: The patient is a 52-year-old male with end-stage renal disease. He has undergone a renal transplant but requires dialysis 4 times weekly. He was recently hospitalized with atrial fibrillation with rapid ventricular response. He was discharged on April 28, but since that time has noted gross hematuria. He typically does not void, but reports that he voided 9 times in a day because of the bleeding. He denies dysuria. Urine culture obtained on May 08, 2023 is negative. Upon close questioning of the patient and his mother, it appears that he has experienced occasional hematuria for the past 6 months. Review of Systems - Genitourinary Reports as per HPI Past Medical History Past Medical History: Atrial Fibrillation, Dialysis, GERD/Reflux, Renal Disease, Seizure Disorder, Thyroid Disorder Additional Past Medical History / Comment(s): hemodialysis M/W,F,/S at home, div erticulitis,blind, shingles in February, recent falls, kidney transplant in 1998, CAPD when pt was 19y.o, anemia, around 7 grand mal seizures in 2021, nonactive L. arm dialysis graft, R. groin dialysis port. History of Any Multi-Drug Resistant Organisms: None Reported Additional Past Surgical History / Comment(s): fistula placement , thyroidectomy, kidney transplant Past Anesthesia/Blood Transfusion Reactions: Previous Problems w/ Anesthesia Additional Past Anesthesia/Blood Transfusion Reaction / Comm: Pt has his surgery done with local anesthetics d/t general anesthesia causing facial edema and difficulty waking. Blood transfusion had no issues Past Psychological History: No Psychological Hx Reported Additional Psychological History / Comment(s): Pt resides with his mother who is his caregiver. Pt ambulates without device/he memorizes where furniture is placed. Mother performs hemodialysis 4 days a week. 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 No home care. Smoking Status: Never smoker Past Alcohol Use History: None Reported Past Drug Use History: None Reported - Past Family History Mother Family Medical History: Fibromyalgia, Osteoarthritis (OA) Additional Family Medical History / Comment(s): Lupus Family Family Medical History: No Reported History Additional Family Medical History / Comment(s): ETOH abuse Medications and Allergies Home Medications Medication Instructions Recorded Confirmed Type Levothyroxine Sodium [Synthroid] 50 mcg PO DAILY 12/18/17 05/08/23 History Montelukast [Singulair] 10 mg PO HS 12/18/17 05/08/23 History predniSONE 10 mg PO DAILY 04/25/21 05/08/23 History Atorvastatin [Lipitor] 20 mg PO DAILY 10/15/22 05/08/23 History Midodrine HCl [ProAmatine] 10 mg PO QID 10/15/22 05/08/23 History allopurinoL 100 mg PO DAILY 10/15/22 05/08/23 History calcitrioL 0.25 mcg PO SUTUWETHSA 10/15/22 05/08/23 History calcitrioL 0.5 mcg PO MOFR 10/15/22 05/08/23 History Fludrocortisone [Florinef] 0.1 mg PO DAILY 04/25/23 05/08/23 History Omeprazole [PriLOSEC] 20 mg PO DAILY 04/25/23 05/08/23 History Acetaminophen Tab [Tylenol] 650 mg PO Q4HR PRN tab 04/28/23 05/08/23 Rx Aspirin 81 mg PO DAILY #30 tab 04/28/23 05/08/23 Rx Metoprolol Tartrate [Lopressor] 25 mg PO BID #60 tab 04/28/23 05/08/23 Rx Darbepoetin Martin [Aranesp] 60 mcg SQ TH 05/08/23 05/08/23 History Allergies Allergy/AdvReac Type Severity Reaction Status Date / Time adhesive tape Allergy Itching Verified 05/08/23 14:37 codeine Allergy Rash/Hives Verified 05/08/23 14:37 cyclobenzaprine Allergy Rash/Hives Verified 05/08/23 14:37 [From Flexeril] diphenhydramine Allergy Anaphylaxis Verified 05/08/23 14:37 [From Benadryl] hydromorphone [From Dilaudid] Allergy Rash/Hives Verified 05/08/23 14:37 hydroxyzine Allergy Anaphylaxis Verified 05/08/23 14:37 Iodinated Contrast Media Allergy Anaphylaxis Verified 05/08/23 14:37 [Iodinated Contrast- Oral and IV Dye] pantoprazole [From Protonix] Allergy Anaphylaxis Verified 05/08/23 14:37 Penicillins Allergy Rash/Hives Verified 05/08/23 14:37 potassium chloride Allergy Rash/Hives Verified 05/08/23 14:37 pregabalin [From Lyrica] Allergy Anaphylaxis Verified 05/08/23 14:37 sevelamer Allergy Rash/Hives Verified 05/08/23 14:37 warfarin [From Coumadin] Allergy Anaphylaxis Verified 05/08/23 14:37 acetaminophen [From Vicodin] AdvReac Nausea & Verified 05/08/23 14:37 Vomiting aripiprazole [From Abilify] AdvReac Abdominal Verified 05/08/23 14:37 Pain aztreonam AdvReac Unknown Verified 05/08/23 14:37 calcitriol AdvReac Unknown Verified 05/08/23 14:37 cefadroxil AdvReac Unknown Verified 05/08/23 14:37 enalapril AdvReac Unknown Verified 05/08/23 14:37 hydrocodone [From Vicodin] AdvReac Nausea & Verified 05/08/23 14:37 Vomiting Influenza Virus Vaccines AdvReac Unknown Verified 05/08/23 14:37 levofloxacin [From Levaquin] AdvReac Abdominal Verified 05/08/23 14:37 Pain meloxicam [From Mobic] AdvReac Abdominal Verified 05/08/23 14:37 Pain morphine AdvReac Unknown Verified 05/08/23 14:37 propoxyphene AdvReac Unknown Verified 05/08/23 14:37 Sulfa (Sulfonamide AdvReac Vomiting Verified 05/08/23 14:37 Antibiotics) tramadol AdvReac Unknown Verified 05/08/23 14:37 Surgical - Exam Vital Signs Temp Pulse Resp BP Pulse Ox 98.6 F 105 H 18 81/59 97 05/08/23 12:58 05/08/23 12:58 05/08/23 12:58 05/08/23 12:58 05/08/23 12:58 - General well developed, well nourished, no distress - Respiratory normal respiratory effort - Abdomen Abdomen: soft, non tender, no guarding, no rigid, no rebound - Genitourinary normal penis with no external lesions, testicles non-tender - Psychiatric oriented to time, oriented to person, oriented to place, speech is normal, memory intact Results - Labs 05/09/23 11:52 05/09/23 11:52 Abnormal Lab Results - Last 24 Hours (Table) 05/09/23 05/09/23 Range/Units 11:52 11:52 RBC 2.83 L (4.30-5.90) m/uL Hgb 8.6 L (13.0-17.5) gm/dL Hct 28.4 L (39.0-53.0) % MCV 100.2 H (80.0-100.0) fL MCHC 30.2 L (31.0-37.0) g/dL BUN 57 H (9-20) mg/dL Creatinine 8.44 H* (0.66-1.25) mg/dL Triglycerides 159.00 H (0.00-149.00) mg/dL HDL Cholesterol 33.00 L (40.00-60.00) mg/dL Microbiology - Last 24 Hours (Table) 05/08/23 14:12 Urine Culture - Final Urine,Voided 05/08/23 15:45 Blood Culture - Preliminary Blood 05/08/23 15:20 Blood Culture - Preliminary Blood Diabetes panel 05/09/23 Range/Units 11:52 Sodium 140 (137-145) mmol/L Potassium 4.8 (3.5-5.1) mmol/L Chloride 102 (98-107) mmol/L Carbon Dioxide 27 (22-30) mmol/L BUN 57 H (9-20) mg/dL Creatinine 8.44 H* (0.66-1.25) mg/dL Glucose 94 (74-99) mg/dL Calcium 9.3 (8.4-10.2) mg/dL Triglycerides 159.00 H (0.00-149.00) mg/dL HDL Cholesterol 33.00 L (40.00-60.00) mg/dL Calcium panel 05/09/23 Range/Units 11:52 Calcium 9.3 (8.4-10.2) mg/dL Pituitary panel 05/09/23 Range/Units 11:52 Sodium 140 (137-145) mmol/L Potassium 4.8 (3.5-5.1) mmol/L Chloride 102 (98-107) mmol/L Carbon Dioxide 27 (22-30) mmol/L BUN 57 H (9-20) mg/dL Creatinine 8.44 H* (0.66-1.25) mg/dL Glucose 94 (74-99) mg/dL Calcium 9.3 (8.4-10.2) mg/dL Adrenal panel 02/23/24 Range/Units 11:52 Sodium 140 (137-145) mmol/L Potassium 4.8 (3.5-5.1) mmol/L Chloride 102 (98-107) mmol/L Carbon Dioxide 27 (22-30) mmol/L BUN 57 H (9-20) mg/dL Creatinine 8.44 H* (0.66-1.25) mg/dL Glucose 94 (74-99) mg/dL Calcium 9.3 (8.4-10.2) mg/dL - Imaging CT scan - abdomen: report reviewed, image reviewed Assessment and Plan (1) Gross hematuria Current Visit: Yes Status: Acute Code(s): R31.0 - GROSS HEMATURIA SNOMED Code(s): 218151488 Plan: In summary, Mr. Clark has end-stage renal disease. He is anuric and on hemodialysis, but has recently experienced hematuria of indeterminate origin. Urine culture was negative. No renal lesions are seen on CT scan to suggest an upper tract source of bleeding. He will thus undergo cystoscopy, bilateral retrograde pyelograms, evacuation of clot, fulguration of bleeders, and possible bladder tumor resection. This was reviewed in detail with the patient and his mother. They have been made aware of potential risks, which include anesthesia, persistent bleeding, infection, and bladder perforation. Time with Patient: Greater than 30
--- NOTE | 2023-05-10 14:54 | P.PN ---
Subjective Progress Note Date: 05/10/23 Patient is a 52-year-old male with end-stage renal disease on hemodialysis Friday, Friday, Friday, and Friday at home, chronic hypotension, atrial fibrillation not on anticoagulation, GERD, seizure disorder, anemia, and blindness who presented to the hospital with complaints of hematuria. Patient was recently hospitalized here from 04/25 through 04/28 for atrial fibrillation with rapid ventricular response. On arrival to the ER here he was tachycardic with a heart rate of 105 and slightly hypotensive with a blood pressure of 81/59. Laboratory analysis included CBC, coags, CMP, magnesium, and troponin which were remarkable for BUN 45, creatinine 6.64, hemoglobin 8.7. Troponin was elevated at 0.071 but significantly down from a max of 23 earlier this month. Urinalysis showed greater than 182 red and white blood cells. In the emergency department he was given 2 g of Rocephin. Arrangements were made for admission. He was continued on Rocephin. Nephrology was consulted and his home dialysis was resumed. His urine culture came back negative and urology was consulted for hematuria. Morgan reports that his hematuria is getting better. He is also going to the bathroom less often. He is not having any abdominal pain. We discussed that his urine culture is negative and that is not consistent with infecetion therefore I suggested that we have him evaluated by urology and he is in agreement. Vital signs reviewed General: Nontoxic, no distress, appears at stated age Cardiovascular: S1S2 reg, no murmur Lungs: Decreased bs bilateral, no rhonchi, no rales, no accessory muscle use Abdominal: Soft, nontender to palpation, no guarding Ext: No gross muscle atrophy, no edema b/l lower extremities, no contractures Neuro: CN II-XI grossly intact, no focal neuro deficits Psych: Alert, oriented, appropriate affect Assessment/Plan: UTI ruled out with negative urine culture. Hematuria due to above - case was discussed with Dr. Anderson. He completed cystoscopy in the morning due to hematuria. ESRD -Case discussed with nephrology: Hemodialysis today -Calcitriol 0.25 mcg to 0.5 mcg daily Elevated troponin, suspected downtrending relation to recent type II non-STEMI Chest pain Atrial fibrillation with rapid ventricular response - Cardiology note reviewed: Continue current medications, consider watchman as outpatient - Monitor blood pressures closely with his history of hypotension - Aspirin 81 mg daily, Lipitor 20 mg daily, metoprolol 25 mg 3 times daily Chronic hypotension -prednisone 10 mg daily, fludrocortisone 0.1 mg daily Chronic: Hypothyroidism Seizure disorder Imaging: None new Hospital course imaging: CT abdomen pelvis: Interval improvement in the transplant kidney hydronephrosis from 04/25/2023 Data Review: Labs reviewed from today include CBC and basic metabolic profile which are remarkable for hemoglobin 8.6, BUN 57, creatinine 8.44. DVT prophylaxis: SCDs Anticipated discharge date: 24 to [address]: Home This dictation was prepared using [employer] voice recognition software. Though every attempt is made to correct errors during dictation some may still exist. Objective - Vital Signs Vital signs: Vital Signs Temp 98.4 F 05/10/23 14:47 Pulse 89 05/10/23 14:47 Resp 16 05/10/23 14:47 BP 113/58 05/10/23 14:47 Pulse Ox 89 L 05/10/23 14:47 FiO2 Intake & Output 05/09/23 05/10/23 05/10/23 18:59 06:59 18:59 Intake Total 1176 1080 168 Output Total 791 Balance 385 1080 168 Weight 83.1 kg Intake: Intake, IV Titration 100 50 Amount cefTRIAXone 2 gm In 100 50 Sodium Chloride 0.9% 50 ml @ 100 mls/hr IVPB Q24HR [facility] Rx#:[id number] Oral 476 1080 118 Hemodialysis 600 Output: Hemodialysis 791 Other: # Bowel Movements 0 - Labs CBC & Chem 7: 05/09/23 11:52 05/09/23 11:52 Labs: Abnormal Lab Results - Last 24 Hours (Table) 05/09/23 Range/Units 11:52 Triglycerides 159.00 H (0.00-149.00) mg/dL HDL Cholesterol 33.00 L (40.00-60.00) mg/dL Microbiology - Last 24 Hours (Table) 05/08/23 14:12 Urine Culture - Final Urine,Voided 05/08/23 15:45 Blood Culture - Preliminary Blood 05/08/23 15:20 Blood Culture - Preliminary Blood
[2023-05-11] MEDS: METOPROLOL TARTRATE 50 MG TAB PO STA (03:05)
[2023-05-11] MEDS: ONDANSETRON 4 MG/2 ML VIAL IVP PRN (03:08)
[2023-05-11] MEDS: LOPERAMIDE 2 MG CAP PO PRN (04:47)
[2023-05-11] MEDS: DILTIAZEM 125 MG in SODIUM CHLORIDE 0.9% 100 ML IV SCH (04:47)
[2023-05-11] MEDS ORDERED: METOPROLOL TARTRATE 50 MG TAB PO SCH (09:00)
[2023-05-11] MEDS: AMIODARONE 200 MG TAB PO SCH (09:39)
[2023-05-11] MEDS: METOPROLOL TARTRATE 50 MG TAB PO SCH (09:39)
[2023-05-11 09:52] LABS: HCT 28.5 % (39.0-53.0); Hypochromasia Marked; MCH 31.7 pg (25.0-35.0); MCHC 31.5 g/dL (31.0-37.0); MCV 100.7 fL (80.0-100.0); Macrocytosis Slight; Mean Platelet Volume 6.9; Platelet Count 206 k/uL (150-450); RBC 2.83 m/uL (4.30-5.90); RDW 15.5 % (11.5-15.5); WBC 4.1 k/uL (3.8-10.6)
[2023-05-11] MEDS: SODIUM CHLORIDE 0.9% 500 ML 500 ML IV ONE (09:53)
[2023-05-11 10:08] LABS: Potassium 4.1 mmol/L (3.5-5.1)
[2023-05-11 10:09] LABS: African American GFR (CKD) 12 (>60 ml/min/1.73 sqM); Anion Gap 10 mmol/L; Blood Urea Nitrogen 28 mg/dL (9-20); Calcium 8.8 mg/dL (8.4-10.2); Carbon Dioxide 24 mmol/L (22-30); Chloride 106 mmol/L (98-107); Glucose 78 mg/dL (74-99); Non-African American GFR(CKD) 10 (>60 ml/min/1.73 sqM); Sodium 140 mmol/L (137-145)
--- NOTE | 2023-05-11 10:51 | P.PN ---
Subjective Progress Note Date: 05/11/23 Principal diagnosis: Gross hematuria Patient was noted to be tachycardic and hypotensive this morning. He states that he had approximately 9 episodes of diarrhea yesterday and overnight, and is likely dehydrated. He states that he voided a very small amount of blood at the time of one of his episodes of diarrhea, but has had no other bleeding per urethra. Objective - Vital Signs Vital signs: Vital Signs Temp 99.0 F 05/11/23 09:59 Pulse 100 05/11/23 10:38 Resp 18 05/11/23 07:45 BP 104/69 05/11/23 10:38 Pulse Ox 96 05/11/23 10:38 FiO2 Intake & Output 05/10/23 05/11/23 05/11/23 18:59 06:59 18:59 Intake Total 804 540 41.333 Output Total 1400 Balance -596 540 41.333 Intake: IV 10 Invasive Line 1 10 Intake, IV Titration 50 31.333 Amount Diltiazem 125 mg In 31.333 Sodium Chloride 0.9% 100 ml @ 10 MG/HR 10 mls/hr IV .[id number] [facility] Rx#: [id number] cefTRIAXone 2 gm In 50 Sodium Chloride 0.9% 50 ml @ 100 mls/hr IVPB Q24HR [facility] Rx#:[id number] Oral 354 540 Hemodialysis 400 Output: Hemodialysis 1400 Other: # Bowel Movements 0 9 - Constitutional General appearance: Present: average body habitus, cooperative, no acute distress - Psychiatric Psychiatric: Present: A&O x's 3 - Labs CBC & Chem 7: 05/11/23 08:41 05/11/23 08:41 Labs: Abnormal Lab Results - Last 24 Hours (Table) 05/11/23 05/11/23 Range/Units 08:41 08:41 RBC 2.83 L (4.30-5.90) m/uL Hgb 9.0 L (13.0-17.5) gm/dL Hct 28.5 L (39.0-53.0) % MCV 100.7 H (80.0-100.0) fL BUN 28 H (9-20) mg/dL Creatinine 5.77 H (0.66-1.25) mg/dL Microbiology - Last 24 Hours (Table) 05/08/23 15:45 Blood Culture - Preliminary Blood 05/08/23 15:20 Blood Culture - Preliminary Blood Assessment and Plan (1) Gross hematuria Current Visit: Yes Status: Acute Code(s): R31.0 - GROSS HEMATURIA SNOMED Code(s): 648734348 Plan: Mr. Clark has end-stage renal disease. He is anuric and on hemodialysis, but has recently experienced hematuria of indeterminate origin. Urine culture was negative. No renal lesions are seen on CT scan to suggest an upper tract source of bleeding. He has been advised to undergo cystoscopy, bilateral retrograde pyelograms, evacuation of clot, fulguration of bleeders, and possible bladder tumor resection. The procedure was scheduled to be done this morning, but was canceled given his change in vital signs and elevated troponin levels. His hemoglobin level today has actually increased slightly. The surgery will be rescheduled once his overall condition is felt to be more stable.
--- NOTE | 2023-05-11 11:06 | P.PN ---
Subjective Progress Note Date: 05/11/23 This is Alejandro Mason NP, I'm dictating on behalf of Dr. Kramer's H&P and A&P. Patient was interviewed and examined. Patient is a pleasant 52-year-old male who presented to hospital with chest pain, atrial fibrillation, urinary tract infection, who we were consulted on for A-fib with RVR. Patient reports that he is not feeling good today. He is reporting head, chest, neck, and back pain. Patient's blood pressure is noted to be quite low today in the 80s over 40s range. Heart rate remains semiele vated in the 80s to 100s. Patient is noted to be unable to tolerate IV diltiazem due to significant drops in blood pressure. Patient has previous history of dysautonomia and is on midodrine. Despite this his blood pressures remain low, it appears especially after dialysis. GENERAL: Well-appearing, well-nourished and in no acute distress. NECK: Supple without JVD or thyromegaly. LUNGS: Breath sounds clear to auscultation bilaterally. Respiration equal and unlabored. No wheezes, rales or rhonchi. HEART: Regular rate and rhythm without murmurs, rubs or gallops. S1 and S2 heard. EXTREMITIES: Normal range of motion, no edema. No clubbing or cyanosis. Peripheral pulses intact and strong. VITALS: Temp 99.0, pulse 100, blood pressure 104/69, O2 saturation 96% on room air TELEMETRY: Atrial fibrillation with controlled ventricular response LABS: White count 4.1, hemoglobin 9.0, platelets 206, sodium 140, potassium 4.1, BUN 28, creatinine 5.77 IMPRESSION: 1. Persistent atrial fibrillation 2. Valvular heart disease 3. History of hypertension 4. Abnormal troponins 5. End-stage renal disease on hemodialysis 6. History of failed kidney transplant PLAN: Continue current medications as prescribed. Amiodarone plus metoprolol for rate control. Accept current heart rates as they are, patient does not tolerate any additional medications including IV Cardizem due to his low blood pressures. Will have to slowly titrate medications as tolerated in order to control heart rate. Give metoprolol despite low blood pressures as this is the only way his heart rate will stay controlled. Further recommendations based on patient's clinical course. Objective - Vital Signs Vital signs: Vital Signs Temp 99.0 F 05/11/23 09:59 Pulse 98 05/11/23 07:45 Resp 18 05/11/23 07:45 BP 85/51 05/11/23 09:41 Pulse Ox 98 05/11/23 07:45 FiO2 Intake & Output 05/10/23 05/11/23 05/11/23 18:59 06:59 18:59 Intake Total 804 540 41.333 Output Total 1400 Balance -596 540 41.333 Intake: IV 10 Invasive Line 1 10 Intake, IV Titration 50 31.333 Amount Diltiazem 125 mg In 31.333 Sodium Chloride 0.9% 100 ml @ 10 MG/HR 10 mls/hr IV .[id number] [facility] Rx#: [id number] cefTRIAXone 2 gm In 50 Sodium Chloride 0.9% 50 ml @ 100 mls/hr IVPB Q24HR [facility] Rx#:[id number] Oral 354 540 Hemodialysis 400 Output: Hemodialysis 1400 Other: # Bowel Movements 0 9 - Labs CBC & Chem 7: 05/11/23 08:41 05/11/23 08:41 Labs: Abnormal Lab Results - Last 24 Hours (Table) 05/11/23 Range/Units 08:41 RBC 2.83 L (4.30-5.90) m/uL Hgb 9.0 L (13.0-17.5) gm/dL Hct 28.5 L (39.0-53.0) % MCV 100.7 H (80.0-100.0) fL Microbiology - Last 24 Hours (Table) 05/08/23 15:45 Blood Culture - Preliminary Blood 05/08/23 15:20 Blood Culture - Preliminary Blood
--- NOTE | 2023-05-11 11:07 | P.PN ---
Subjective Patient is seen for follow-up for end-stage renal disease. Patient tolerated hemodialysis treatment very well yesterday with no complaints of chest pains or shortness of breath. UF of 1400 ml Last night patient had multiple episodes of diarrhea and this morning blood pressure was low with systolic in the 80s. Received 1 dose of midodrine and b lood pressure has not improved. Patient will be given a fluid bolus. Mother is present at bedside. Currently with nursing staff in the room as well. Manual blood pressure is being taken. Patient denies chest pains shortness of breath nausea or vomiting. Complaining of mild abdominal pain. Objective - Vital Signs Vital signs: Vital Signs Temp 99.0 F 05/11/23 09:59 Pulse 100 05/11/23 10:38 Resp 18 05/11/23 07:45 BP 104/69 05/11/23 10:38 Pulse Ox 96 05/11/23 10:38 FiO2 Intake & Output 05/10/23 05/11/23 05/11/23 18:59 06:59 18:59 Intake Total 804 540 41.333 Output Total 1400 Balance -596 540 41.333 Intake: IV 10 Invasive Line 1 10 Intake, IV Titration 50 31.333 Amount Diltiazem 125 mg In 31.333 Sodium Chloride 0.9% 100 ml @ 10 MG/HR 10 mls/hr IV .[id number] [facility] Rx#: [id number] cefTRIAXone 2 gm In 50 Sodium Chloride 0.9% 50 ml @ 100 mls/hr IVPB Q24HR [facility] Rx#:[id number] Oral 354 540 Hemodialysis 400 Output: Hemodialysis 1400 Other: # Bowel Movements 0 9 - Exam Patient is awake, comfortable, no acute distress Examination of the heart S1 and S2 Examination of the lungs bilateral breath sounds are heard Examination of lower extremity shows trace edema bilaterally 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 End-stage renal disease on home hemodialysis. Patient has a tunneled femoral catheter. 2. Pyuria with hematuria and negative urine cultures. Currently maintained on antibiotics. Status post evaluation by urology with plans for cystoscopy when patient is stable. 3. A-fib with RVR with recent hospitalization 4. Chronic hypotension maintained on Florinef, midodrine. Patient is also maintained on prednisone which he has continued after his renal transplant failed. 5. Diarrhea possibly related to antibiotics Plan: Fluid bolus x 1 Continue with midodrine. Cystoscopy on hold until patient is stable. Continue with Aranesp. Symptomatic treatment of diarrhea with Imodium We will plan for hemodialysis in a.m. if patient is hemodynamically stable
--- NOTE | 2023-05-11 11:46 | P.PN ---
Subjective Progress Note Date: 05/11/23 (delayed charting seen at 0845) Patient is a 52-year-old male with end-stage renal disease on hemodialysis Friday, Friday, Friday, and Friday at home, chronic hypotension, atrial fibrillation not on anticoagulation, GERD, seizure disorder, anemia, and blindness who presented to the hospital with complaints of hematuria. Patient was recently hospitalized here from 04/25 through 04/28 for atrial fibrillation with rapid ventricular response. On arrival to the ER here he was tachycardic with a heart rate of 105 and slightly hypotensive with a blood pressure of 81/59. Laboratory analysis included CBC, coags, CMP, magnesium, and troponin which were remarkable for BUN 45, creatinine 6.64, hemoglobin 8.7. Troponin was elevated at 0.071 but significantly down from a max of 23 earlier this month. Urinalysis showed greater than 182 red and white blood cells. In the emergency department he was given 2 g of Rocephin. Arrangements were made for admission. He was continued on Rocephin. Nephrology was consulted and his home dialysis was resumed. His urine culture came back negative and urology was consulted for hematuria. Patient seen and examined at bedside. Today he is complaining of chest discomfort associated with left arm pain and shortness of breath that began. His blood pressure lowered this morning. He has already talked with Dr. Anderson who is delaying his procedure. Vital signs reviewed General: Nontoxic, no distress, appears at stated age Cardiovascular: S1S2 reg, no murmur Lungs: Decreased bs bilateral, no rhonchi, no rales, no accessory muscle use Abdominal: Soft, nontender to palpation, no guarding Ext: No gross muscle atrophy, no edema b/l lower extremities, no contractures Neuro: CN II-XI grossly intact, no focal neuro deficits Psych: Alert, oriented, appropriate affect Assessment/Plan: UTI ruled out with negative urine culture. Hematuria due to above -Urology note reviewed: Surgery will be rescheduled once his overall condition is more stable. ESRD -Nephrology note reviewed: Give a fluid bolus due to low blood pressures. -Calcitriol 0.25 mcg to 0.5 mcg daily Elevated troponin, suspected downtrending relation to recent type II non-STEMI Chest pain Atrial fibrillation with rapid ventricular response -Cardiology note reviewed: Continue current medications, no additional medications as he does not tolerate them due to low blood pressures. - Amio 200 mg PO TID - Monitor blood pressures closely with his history of hypotension - Aspirin 81 mg daily, Lipitor 20 mg daily, metoprolol 25 mg 3 times daily Chronic hypotension -prednisone 10 mg daily, fludrocortisone 0.1 mg daily Chronic: Hypothyroidism Seizure disorder Imaging: None new EKG is reviewed by myself shows atrial fibrillation at a rate of 1. No significant ST-T wave changes. Hospital course imaging: CT abdomen pelvis: Interval improvement in the transplant kidney hydronephrosis from 04/25/2023 Data Review: Labs reviewed from today include CBC and basic metabolic profile which are remarkable for hemoglobin of 9 up from 8.6, BUN 28, and creatinine 5.77. DVT prophylaxis: SCDs Anticipated discharge date: 24 to [address]: Home This dictation was prepared using [employer] voice recognition software. Though every attempt is made to correct errors during dictation some may still exist. Objective - Vital Signs Vital signs: Vital Signs Temp 99.0 F 05/11/23 09:59 Pulse 100 05/11/23 10:38 Resp 18 05/11/23 07:45 BP 104/69 05/11/23 10:38 Pulse Ox 96 05/11/23 10:38 FiO2 Intake & Output 05/10/23 05/11/23 05/11/23 18:59 06:59 18:59 Intake Total 804 540 41.333 Output Total 1400 Balance -596 540 41.333 Intake: IV 10 Invasive Line 1 10 Intake, IV Titration 50 31.333 Amount Diltiazem 125 mg In 31.333 Sodium Chloride 0.9% 100 ml @ 10 MG/HR 10 mls/hr IV .[id number] [facility] Rx#: [id number] cefTRIAXone 2 gm In 50 Sodium Chloride 0.9% 50 ml @ 100 mls/hr IVPB Q24HR [facility] Rx#:[id number] Oral 354 540 Hemodialysis 400 Output: Hemodialysis 1400 Other: # Bowel Movements 0 9 - Labs CBC & Chem 7: 05/11/23 08:41 05/11/23 08:41 Labs: Abnormal Lab Results - Last 24 Hours (Table) 05/11/23 05/11/23 Range/Units 08:41 08:41 RBC 2.83 L (4.30-5.90) m/uL Hgb 9.0 L (13.0-17.5) gm/dL Hct 28.5 L (39.0-53.0) % MCV 100.7 H (80.0-100.0) fL BUN 28 H (9-20) mg/dL Creatinine 5.77 H (0.66-1.25) mg/dL Microbiology - Last 24 Hours (Table) 05/08/23 15:45 Blood Culture - Preliminary Blood 05/08/23 15:20 Blood Culture - Preliminary Blood
[2023-05-11] MEDS ORDERED: VANCOMYCIN IV PER PHARMACY 1 EACH MISC MISCELLANE PRN (11:54)
[2023-05-11] MEDS: SODIUM CHLORIDE 0.9% 1,000 ML IV ONE (12:41)
[2023-05-11] MEDS: CEFEPIME 2 GM in SODIUM CHLORIDE 0.9% 100 ML IVPB SCH (13:44)
[2023-05-11] MEDS: VANCOMYCIN 1,500 MG in SODIUM CHLORIDE 0.9% 500 ML 500 ML IVPB ONE (13:45)
[2023-05-11] MEDS: SODIUM CHLORIDE 0.9% 1,000 ML IV SCH (13:51)
[2023-05-11] MEDS: METOPROLOL TARTRATE 25 MG TAB PO SCH (16:37)
[2023-05-12] MEDS: METOPROLOL TARTRATE 25 MG TAB PO SCH (08:54)
[2023-05-12] MEDS ORDERED: METOPROLOL TARTRATE 25 MG TAB PO SCH (09:00)
--- NOTE | 2023-05-12 10:17 | P.PN ---
Subjective Progress Note Date: 05/12/23 Patient is a 52-year-old male with end-stage renal disease on hemodialysis Friday, Friday, Friday, and Friday at home, chronic hypotension, atrial fibrillation not on anticoagulation, GERD, seizure disorder, anemia, and blindness who presented to the hospital with complaints of hematuria. Patient was recently hospitalized here from 04/25 through 04/28 for atrial fibrillation with rapid ventricular response. On arrival to the ER here he was tachycardic with a heart rate of 105 and slightly hypotensive with a blood pressure of 81/59. Laboratory analysis included CBC, coags, CMP, magnesium, and troponin which were remarkable for BUN 45, creatinine 6.64, hemoglobin 8.7. Troponin was elevated at 0.071 but significantly down from a max of 23 earlier this month. Urinalysis showed greater than 182 red and white blood cells. In the emergency department he was given 2 g of Rocephin. Arrangements were made for admission. He was continued on Rocephin. Nephrology was consulted and his home dialysis was resumed. His urine culture came back negative and urology was consulted for hematuria. He then began having issues with A-fib with RVR. Cardizem drip was initiated by cardiology and the patient became hypotensive requiring an extra midodrine Aracelis's and IV fluid resuscitation. He then spiked a fever of 101.5 and antibiotics were broadened to cefepime and vancomycin. Repeat blood cultures were drawn. Patient seen and examined at bedside. He is overall feeling better than y . His chest pain has resolved, shortness of breath has resolved, diarrhea has resolved. He has his chronic abdominal pain. He denies any lightheaded or dizziness. We discussed that we will continue on pulm IV antibiotics until blood cultures are negative for at least 24 hours. Vital signs reviewed General: Nontoxic, no distress, appears at stated age Cardiovascular: S1S2 reg, no murmur Lungs: Decreased bs bilateral, no rhonchi, no rales, no accessory muscle use Abdominal: Soft, nontender to palpation, no guarding Ext: No gross muscle atrophy, no edema b/l lower extremities, no contractures Neuro: CN II-XI grossly intact, no focal neuro deficits Psych: Alert, oriented, appropriate affect Assessment/Plan: UTI ruled out with negative urine culture. Hematuria due to above, improving - Discussed with Dr. Navarro and will hold off on cysto today given BP liability yesterday ESRD - Await further nephro recs -Calcitriol 0.25 mcg to 0.5 mcg daily Pyrexia X 1 - Given Patient's immunocompromise state due to chronic prednisone therapy use antibiotics were broadened to cefepime and vancomycin. 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 - Cefepime piggyback daily #2 - Vancomycin day #2. As dosed by pharmacy. Monitor trough level for signs of toxicity. - Await repeat blood cultures from 05/11 Elevated troponin, suspected downtrending relation to recent type II non-STEMI Chest pain Atrial fibrillation with rapid ventricular response - Await further cardio recs - Attemtped to increased metoprolol to 50 mg TID, BP could to tolerate this change and metoprolol decreased back to home dose of 25mg PO TID. - Amio 200 mg PO TID - Monitor blood pressures closely with his history of hypotension - Aspirin 81 mg daily, Lipitor 20 mg daily Chronic hypotension -prednisone 10 mg daily, fludrocortisone 0.1 mg daily Chronic: Hypothyroidism Seizure disorder Imaging: None new EKG is reviewed by myself shows atrial fibrillation at a rate of 1. No significant ST-T wave changes. Hospital course imaging: CT abdomen pelvis: Interval improvement in the transplant kidney hydronephrosis from 04/25/2023 Data Review: Labs reviewed from yesterday include CBC and basic metabolic profile which were consistent with patient's known anemia and renal dysfunction. DVT prophylaxis: SCDs Anticipated discharge date: 24 to [address]: Home This dictation was prepared using [employer] voice recognition software. T jeanie every attempt is made to correct errors during dictation some may still exist. Objective - Vital Signs Vital signs: Vital Signs Temp 98.1 F 05/12/23 08:00 Pulse 94 05/12/23 08:00 Resp 16 05/12/23 08:00 BP 124/64 05/12/23 08:00 Pulse Ox 100 05/12/23 08:00 FiO2 Intake & Output 05/11/23 05/12/23 05/12/23 18:59 06:59 18:59 Intake Total 1777.333 110 Output Total 0 0 Balance 1777.333 0 110 Weight 84.1 kg Intake: IV 10 Invasive Line 1 10 Intake, IV Titration 1531.333 Amount Diltiazem 125 mg In 31.333 Sodium Chloride 0.9% 100 ml @ 10 MG/HR 10 mls/hr IV .[id number] [facility] Rx#: [id number] Sodium Chloride 0.9% 1, 1000 000 ml @ 999 mls/hr IV . Q1H1M [facility] Rx#:[id number] Sodium Chloride 0.9% 500 500 ml 500 ml @ 999 mls/hr IV .Q31M [facility] Rx#:[id number] Oral 236 110 Output: Urine 0 0 Other: # Bowel Movements 1 1 - Labs CBC & Chem 7: 05/11/23 08:41 05/11/23 08:41 Labs: Abnormal Lab Results - Last 24 Hours (Table) 05/11/23 Range/Units 08:41 BUN 28 H (9-20) mg/dL Creatinine 5.77 H (0.66-1.25) mg/dL Microbiology - Last 24 Hours (Table) 05/08/23 15:45 Blood Culture - Preliminary Blood 05/08/23 15:20 Blood Culture - Preliminary Blood
--- NOTE | 2023-05-12 10:22 | P.PN ---
Subjective Patient is seen in follow-up for end-stage renal disease. He is maintained on home hemodialysis. Denies chest pain or shortness of breath. Currently sitting up in bed. Denies any gross hematuria today. Vital signs are stable. General: No acute distress. HEENT: Head exam is unremarkable. LUNGS: No audible rhonchi or wheezes. HEART: Rate and Rhythm are regular. ABDOMEN: Nontender. EXTREMITITES: No edema. Objective - Vital Signs Vital signs: Vital Signs Temp 98.1 F 05/12/23 08:00 Pulse 94 05/12/23 08:00 Resp 16 05/12/23 08:00 BP 124/64 05/12/23 08:00 Pulse Ox 100 05/12/23 08:00 FiO2 Intake & Output 05/11/23 05/12/23 05/12/23 18:59 06:59 18:59 Intake Total 1777.333 110 Output Total 0 0 Balance 1777.333 0 110 Weight 84.1 kg Intake: IV 10 Invasive Line 1 10 Intake, IV Titration 1531.333 Amount Diltiazem 125 mg In 31.333 Sodium Chloride 0.9% 100 ml @ 10 MG/HR 10 mls/hr IV .[id number] [facility] Rx#: [id number] Sodium Chloride 0.9% 1, 1000 000 ml @ 999 mls/hr IV . Q1H1M [facility] Rx#:[id number] Sodium Chloride 0.9% 500 500 ml 500 ml @ 999 mls/hr IV .Q31M [facility] Rx#:[id number] Oral 236 110 Output: Urine 0 0 Other: # Bowel Movements 1 1 - Labs CBC & Chem 7: 05/11/23 08:41 05/11/23 08:41 Labs: Microbiology - Last 24 Hours (Table) 05/08/23 15:45 Blood Culture - Preliminary Blood 05/08/23 15:20 Blood Culture - Preliminary Blood Assessment and Plan Plan: Assessment: 1. End-stage renal disease maintained on home hemodialysis via femoral dialysis catheter. 2. Gross hematuria. Urology following. Cystoscopy pending. 3. Chronic hypotension maintained on midodrine and Florinef. Also on prednisone. 4. Chronic kidney disease mineral bone disease maintained on calcitriol. 5. Anemia of chronic kidney disease maintained on Aranesp. 6. History of failed renal transplant. Plan: Hemodialysis today. Cystoscopy pending. Check phosphorus level.
--- NOTE | 2023-05-12 15:06 | P.PN ---
Subjective Progress Note Date: 05/12/23 This is a 52-year-old male with a past medical history significant for atrial fibrillation not on anticoagulation, end-stage renal disease on hemodialysis, kidney transplant, aortic stenosis, and hypotension. Patient follows in the office with Dr. Serrano. We have been asked to see the patient in consultation for elevated troponins. Patient examined at the bedside. Patient presented to the hospital due to hematuria. Patient denies having any chest pain or pressure. He denies any shortness of breath. Denies any dizziness or lightheadedness. DIAGNOSTICS: - EKG reveals atrial fibrillation with a heart rate of 106. - Chest xray there are a few linear bands of opacity at the lung bases bilaterally which may represent atelectasis. This is improved since previous examination. Improving pneumonia would also be a possibility. The cardiac silhouette is moderately enlarged and the pulmonary vessels are within normal limits.. - Laboratory data: WBC 6.6. Hemoglobin 8.7. Platelet count 297. Sodium 137. Potassium 4.7. BUN 45. Creatinine 6.64. Troponin 0.071. 0.064. 0.069. - Current home cardiac medications include aspirin 81 mg daily, Lipitor 20 mg daily, metoprolol tartrate 25 mg twice a day, midodrine 10 mg 4 times a day. - Most recent echocardiogram obtained on 04/25/2023 revealed ejection fraction 55 to 60% mild LVH, mild to moderate MR, mild AR, mild TR 05/11 Patient reports that he is not feeling good today. He is reporting head, chest, neck, and back pain. Patient's blood pressure is noted to be quite low today in the 80s over 40s range. Heart rate remains semielevated in the 80s to 100s. Patient is noted to be unable to tolerate IV diltiazem due to significant drops in blood pressure. Patient has previous history of dysautonomia and is on midodrine. Despite this his blood pressures remain low, it appears especially after dialysis. 05/12 Patient is scheduled for cystoscopy. Patient denies having any chest pain, shortness of breath, palpitations. He is not currently on anticoagulation for A-fib due to history of bleeding. Heart rate is in the 90s, blood pressure 110/72, pulse ox 100% on room air. Telemetry is atrial fibrillation rate controlled. GENERAL: Well-appearing, well-nourished and in no acute distress. NECK: Supple without JVD or thyromegaly. LUNGS: Breath sounds clear to auscultation bilaterally. Respiration equal and unlabored. No wheezes, rales or rhonchi. HEART: Regular rate and rhythm without murmurs, rubs or gallops. S1 and S2 heard. EXTREMITIES: Normal range of motion, no edema. No clubbing or cyanosis. Peripheral pulses intact and strong. ASSESSMENT: Hematuria UTI with suspected pyelonephritis End-stage renal disease on hemodialysis History of failed kidney transplantation Abnormal troponins, flat, not suggestive of acute coronary syndrome Persistent atrial fibrillation with mild RVR, unable to tolerate anticoagulation due to bleeding issues per patient Valvular heart disease, moderate aortic stenosis, regurgitation History of hypotension, on midodrine PLAN: Continue current medications Continue amiodarone 200 mg 3 times daily plus metoprolol for rate control. Patient does not tolerate any additional medications including IV Cardizem due to his low blood pressures. Will have to slowly titrate medications as tolerated in order to control heart rate. Give metoprolol despite low blood pressures as this is the only way his heart rate will stay controlled. Consider Watchman device on an outpatient basis as patient is unable to tolerate anticoagulation Further recommendations pending patient course Nurse practitioner note has been reviewed by physician. Signing provider agrees with the documented findings, assessment, and plan of care documented by [employer]YING ROOM ATTENDANT as a scribe. Objective - Vital Signs Vital signs: Vital Signs Temp 98.1 F 05/12/23 08:00 Pulse 94 05/12/23 08:00 Resp 16 05/12/23 08:00 BP 124/64 05/12/23 08:00 Pulse Ox 100 05/12/23 08:00 FiO2 Intake & Output 05/11/23 05/12/23 05/12/23 18:59 06:59 18:59 Intake Total 1777.333 110 Output Total 0 0 Balance 1777.333 0 110 Weight 84.1 kg Intake: IV 10 Invasive Line 1 10 Intake, IV Titration 1531.333 Amount Diltiazem 125 mg In 31.333 Sodium Chloride 0.9% 100 ml @ 10 MG/HR 10 mls/hr IV .[id number] [facility] Rx#: [id number] Sodium Chloride 0.9% 1, 1000 000 ml @ 999 mls/hr IV . Q1H1M [facility] Rx#:[id number] Sodium Chloride 0.9% 500 500 ml 500 ml @ 999 mls/hr IV .Q31M [facility] Rx#:[id number] Oral 236 110 Output: Urine 0 0 Other: # Bowel Movements 1 1 - Labs CBC & Chem 7: 05/11/23 08:41 05/11/23 08:41 Labs: Abnormal Lab Results - Last 24 Hours (Table) 05/11/23 05/11/23 Range/Units 08:41 08:41 RBC 2.83 L (4.30-5.90) m/uL Hgb 9.0 L (13.0-17.5) gm/dL Hct 28.5 L (39.0-53.0) % MCV 100.7 H (80.0-100.0) fL BUN 28 H (9-20) mg/dL Creatinine 5.77 H (0.66-1.25) mg/dL Microbiology - Last 24 Hours (Table) 05/08/23 15:45 Blood Culture - Preliminary Blood 05/08/23 15:20 Blood Culture - Preliminary Blood
[2023-05-12] MEDS ORDERED: VANCOMYCIN 1,500 MG in SODIUM CHLORIDE 0.9% 500 ML 500 ML IVPB ONE (16:00)
[2023-05-12] MEDS: CEFEPIME 1 GM in SODIUM CHLORIDE 0.9% 50 ML IVPB SCH (17:17)
--- NOTE | 2023-05-12 18:56 | P.PN ---
Subjective Progress Note Date: 05/12/23 The patient has crf We have seen heme for hematuria. Dr Drake was to do a cysto with retrogrades today but held off due to cardiac issues. Objective - Vital Signs Vital signs: Vital Signs Temp 98.1 F 05/12/23 17:39 Pulse 113 H 05/12/23 16:00 Resp 19 05/12/23 17:39 BP 130/80 05/12/23 17:39 Pulse Ox 97 05/12/23 16:00 FiO2 Intake & Output 05/11/23 05/12/23 05/12/23 18:59 06:59 18:59 Intake Total 1777.333 830 Output Total 0 0 1300 Balance 1777.333 0 -470 Weight 84.1 kg Intake: IV 10 Invasive Line 1 10 Intake, IV Titration 1531.333 100 Amount Cefepime 2 gm In Sodium 100 Chloride 0.9% 100 ml @ 25 mls/hr IVPB Q12HR@0000, 1200 [facility] Rx#:[id number] Diltiazem 125 mg In 31.333 Sodium Chloride 0.9% 100 ml @ 10 MG/HR 10 mls/hr IV .[id number] [facility] Rx#: [id number] Sodium Chloride 0.9% 1, 1000 000 ml @ 999 mls/hr IV . Q1H1M [facility] Rx#:[id number] Sodium Chloride 0.9% 500 500 ml 500 ml @ 999 mls/hr IV .Q31M [facility] Rx#:[id number] Oral 236 330 Hemodialysis 400 Output: Urine 0 0 Hemodialysis 1300 Other: # Bowel Movements 1 1 - Labs CBC & Chem 7: 05/11/23 08:41 05/11/23 08:41 Labs: Abnormal Lab Results - Last 24 Hours (Table) 05/12/23 Range/Units 08:41 Phosphorus 4.6 H (2.5-4.5) mg/dL Microbiology - Last 24 Hours (Table) 05/08/23 15:45 Blood Culture - Preliminary Blood 05/08/23 15:20 Blood Culture - Preliminary Blood Assessment and Plan Assessment: Impression: Crf with hematuria Plan the patient has normal upper tracts. He will eventually need cysto with bilateral retrograde pyelograms when he is cleared medically
[2023-05-12] MEDS: VANCOMYCIN 1,500 MG in SODIUM CHLORIDE 0.9% 500 ML 500 ML IVPB ONE (21:03)
[2023-05-13 08:11] LABS: HCT 26.5 % (39.0-53.0); HGB 8.2 gm/dL (13.0-17.5); Hypochromasia Moderate; MCH 30.9 pg (25.0-35.0); MCHC 30.9 g/dL (31.0-37.0); Macrocytosis Slight; Mean Platelet Volume 7.7; Platelet Count 156 k/uL (150-450); RBC 2.65 m/uL (4.30-5.90); RDW 15.8 % (11.5-15.5); WBC 3.7 k/uL (3.8-10.6)
[2023-05-13 08:30] LABS: African American GFR (CKD) 13 (>60 ml/min/1.73 sqM); Anion Gap 10 mmol/L; Blood Urea Nitrogen 26 mg/dL (9-20); Calcium 8.3 mg/dL (8.4-10.2); Carbon Dioxide 23 mmol/L (22-30); Chloride 105 mmol/L (98-107); Glucose 82 mg/dL (74-99); Non-African American GFR(CKD) 11 (>60 ml/min/1.73 sqM); Potassium 3.8 mmol/L (3.5-5.1); Sodium 138 mmol/L (137-145)
[2023-05-13 10:23] LABS: Vancomycin,Random 29.5 ug/mL
--- NOTE | 2023-05-13 10:53 | P.PN ---
Subjective Patient is seen in follow-up for end-stage renal disease. He is maintained on home hemodialysis. No problems with dialysis yesterday. Denies chest pain or shortness of breath. Currently sitting up in bed. Denies any gross hematuria today. Vital signs are stable. General: No acute distress. HEENT: Head exam is unremarkable. LUNGS: No audible rhonchi or wheezes. HEART: Rate and Rhythm are regular. ABDOMEN: Nontender. EXTREMITITES: No edema. Objective - Vital Signs Vital signs: Vital Signs Temp 98.3 F 05/13/23 08:00 Pulse 91 05/13/23 08:00 Resp 16 05/13/23 08:00 BP 120/79 05/13/23 08:00 Pulse Ox 97 05/13/23 08:00 FiO2 Intake & Output 05/12/23 05/13/23 05/13/23 18:59 06:59 18:59 Intake Total 830 240 Output Total 1300 0 Balance -470 0 240 Weight 84.7 kg Intake: Intake, IV Titration 100 Amount Cefepime 2 gm In Sodium 100 Chloride 0.9% 100 ml @ 25 mls/hr IVPB Q12HR@0000, 1200 [facility] Rx#:[id number] Oral 330 240 Hemodialysis 400 Output: Urine 0 Hemodialysis 1300 Other: # Voids 0 # Bowel Movements 0 - Labs CBC & Chem 7: 05/13/23 07:58 05/13/23 07:58 Labs: Abnormal Lab Results - Last 24 Hours (Table) 05/12/23 05/13/23 05/13/23 Range/Units 08:41 07:58 07:58 WBC 3.7 L (3.8-10.6) k/uL RBC 2.65 L (4.30-5.90) m/uL Hgb 8.2 L (13.0-17.5) gm/dL Hct 26.5 L (39.0-53.0) % MCHC 30.9 L (31.0-37.0) g/dL RDW 15.8 H (11.5-15.5) % BUN 26 H (9-20) mg/dL Creatinine 5.52 H (0.66-1.25) mg/dL Calcium 8.3 L (8.4-10.2) mg/dL Phosphorus 4.6 H (2.5-4.5) mg/dL Microbiology - Last 24 Hours (Table) 05/11/23 12:35 Blood Culture - Preliminary Blood 05/11/23 10:30 Blood Culture - Preliminary Blood Assessment and Plan Plan: Assessment: 1. End-stage renal disease maintained on home hemodialysis via femoral dialysis catheter. 2. Gross hematuria. Urology following. Cystoscopy pending. 3. Chronic hypotension maintained on midodrine and Florinef. Also on prednisone. Stable. 4. Chronic kidney disease mineral bone disease maintained on calcitriol. Phosphorus level 4.6 dated May 12, 2023. 5. Anemia of chronic kidney disease maintained on Aranesp. 6. History of failed renal transplant. Plan: Hemodialysis tomorrow. Add Tums with meals.
--- NOTE | 2023-05-13 12:42 | P.PN ---
Subjective Progress Note Date: 05/13/23 This is a 52-year-old male with a past medical history significant for atrial fibrillation not on anticoagulation, end-stage renal disease on hemodialysis, kidney transplant, aortic stenosis, and hypotension. Patient follows in the office with Dr. Serrano. We have been asked to see the patient in consultation for elevated troponins. Patient examined at the bedside. Patient presented to the hospital due to hematuria. Patient denies having any chest pain or pressure. He denies any shortness of breath. Denies any dizziness or lightheadedness. DIAGNOSTICS: - EKG reveals atrial fibrillation with a heart rate of 106. - Chest xray there are a few linear bands of opacity at the lung bases bilaterally which may represent atelectasis. This is improved since previous examination. Improving pneumonia would also be a possibility. The cardiac silhouette is moderately enlarged and the pulmonary vessels are within normal limits.. - Laboratory data: WBC 6.6. Hemoglobin 8.7. Platelet count 297. Sodium 137. Potassium 4.7. BUN 45. Creatinine 6.64. Troponin 0.071. 0.064. 0.069. - Current home cardiac medications include aspirin 81 mg daily, Lipitor 20 mg daily, metoprolol tartrate 25 mg twice a day, midodrine 10 mg 4 times a day. - Most recent echocardiogram obtained on 04/25/2023 revealed ejection fraction 55 to 60% mild LVH, mild to moderate MR, mild AR, mild TR 05/11 Patient reports that he is not feeling good today. He is reporting head, chest, neck, and back pain. Patient's blood pressure is noted to be quite low today in the 80s over 40s range. Heart rate remains semielevated in the 80s to 100s. Patient is noted to be unable to tolerate IV diltiazem due to significant drops in blood pressure. Patient has previous history of dysautonomia and is on midodrine. Despite this his blood pressures remain low, it appears especially after dialysis. 05/12 Patient is scheduled for cystoscopy. Patient denies having any chest pain, shortness of breath, palpitations. He is not currently on anticoagulation for A-fib due to history of bleeding. Heart rate is in the 90s, blood pressure 110/72, pulse ox 100% on room air. Telemetry is atrial fibrillation rate controlled. 05/13 Patient states that he has had some chest in the mid or upper sternal area. Blood pressure 120/79, heart rate 70s to 90s, pulse ox 97% on room air. Repeat blood work reveals WBC 3.7, hemoglobin 8.2, BUN 26 creatinine 5.52. Cystoscopy was delayed due to chest pain. Discussed options with the patient regarding cardiac workup which would include a stress test or cardiac catheterization. Physical examination: GENERAL: Well-appearing, well-nourished and in no acute distress. NECK: Supple without JVD or thyromegaly. LUNGS: Breath sounds clear to auscultation bilaterally. Respiration equal and unlabored. No wheezes, rales or rhonchi. HEART: Regular rate and rhythm without murmurs, rubs or gallops. S1 and S2 heard. EXTREMITIES: Normal range of motion, no edema. No clubbing or cyanosis. Peripheral pulses intact and strong. ASSESSMENT: Hematuria UTI with suspected pyelonephritis End-stage renal disease on hemodialysis History of failed kidney transplantation Abnormal troponins, flat, not suggestive of acute coronary syndrome Persistent atrial fibrillation with mild RVR, unable to tolerate anticoagulation due to bleeding issues per patient Valvular heart disease, moderate aortic stenosis, regurgitation History of hypotension, on midodrine PLAN: Continue current medications Continue amiodarone 200 mg 3 times daily plus metoprolol for rate control. Due to risk factors and complaints of chest pain, we will plan to do Lexiscan stress test tomorrow. If this is abnormal, patient may need to undergo cardiac catheterization. Note that cystoscopy has been placed on hold. Further recommendations pending patient course Nurse practitioner note has been reviewed by physician. Signing provider agrees with the documented findings, assessment, and plan of care documented by PUBLIC RELATIONS COUNSELOR as a scribe. Objective - Vital Signs Vital signs: Vital Signs Temp 98.3 F 05/13/23 08:00 Pulse 91 05/13/23 08:00 Resp 16 05/13/23 08:00 BP 120/79 05/13/23 08:00 Pulse Ox 97 05/13/23 08:00 FiO2 Intake & Output 05/12/23 05/13/23 05/13/23 18:59 06:59 18:59 Intake Total 830 240 Output Total 1300 0 Balance -470 0 240 Weight 84.7 kg Intake: Intake, IV Titration 100 Amount Cefepime 2 gm In Sodium 100 Chloride 0.9% 100 ml @ 25 mls/hr IVPB Q12HR@0000, 1200 [facility] Rx#:[id number] Oral 330 240 Hemodialysis 400 Output: Urine 0 Hemodialysis 1300 Other: # Voids 0 # Bowel Movements 0 - Labs CBC & Chem 7: 05/13/23 07:58 05/13/23 07:58 Labs: Abnormal Lab Results - Last 24 Hours (Table) 05/12/23 05/13/23 05/13/23 Range/Units 08:41 07:58 07:58 WBC 3.7 L (3.8-10.6) k/uL RBC 2.65 L (4.30-5.90) m/uL Hgb 8.2 L (13.0-17.5) gm/dL Hct 26.5 L (39.0-53.0) % MCHC 30.9 L (31.0-37.0) g/dL RDW 15.8 H (11.5-15.5) % BUN 26 H (9-20) mg/dL Creatinine 5.52 H (0.66-1.25) mg/dL Calcium 8.3 L (8.4-10.2) mg/dL Phosphorus 4.6 H (2.5-4.5) mg/dL Microbiology - Last 24 Hours (Table) 05/11/23 12:35 Blood Culture - Preliminary Blood 05/11/23 10:30 Blood Culture - Preliminary Blood
[2023-05-13] MEDS: CALCIUM CARBONATE 500 MG CHEWABLE PO SCH (12:51)
--- NOTE | 2023-05-13 13:10 | P.PN ---
Subjective Progress Note Date: 05/13/23 Patient is a 52-year-old male with ESRD on HD MWFS at home, chronic hypotension, AFib not on AC, GERD, seizure disorder, anemia, and blindness who presented to the hospital with complaints of hematuria. Patient was recently hospitalized here from 04/25 through 04/28 for A-Fib with RVR. On arrival to the ER here he was tachycardic with a HR of 105 and slightly hypotensive with a BP of 81/59. Laboratory analysis included CBC, Coags, CMP, Mag, and troponin which were remarkable for BUN 45, creatinine 6.64, hemoglobin 8.7. Troponin was elevated at 0.071, 0.064, 0.069 but significantly down from a max of 23 earlier this month. UA showed greater than 182 RBC and WBCs. In the emergency department he was given Rocephin 2g IV and arrangements were made for admission. He was continued on Rocephin from 05/08-05/11. Nephrology was consulted and his home dialysis was resumed. His UCx came back negative and urology was consulted for hematuria. He then began having issues with A-fib with RVR. Cardizem drip was initiated by cardiology and the patient became hypotensive requiring an extra midodrine, Florinef and IV fluid resuscitation. He was eventually transitioned to Amiodarone 200 mg PO TID. He then spiked a fever of 101.5F on 05/11 and antibiotics were broadened to cefepime and vancomycin on 05/12. C. difficile, RSV, Flu, COVID negative. Repeat blood cultures were drawn on 05/11. 05/13 Patient seen and examined at bedside. Patient reports intermittent chest pain but none currently. Repeat BCx is negatve at 24H. CBC and BMP is pending this morning. Tmax 98.4F over the past 24H. Plans for cystoscopy when medically stable. Cardiology recommends stress test tomorrow. CBC WBC 3.7 RBC 2.65 Hg 8.2 Hct 26.5. BMP BUN 26, Cr 5.52, Ca 8.3. Vital signs reviewed General: Nontoxic, no distress, appears at stated age Cardiovascular: S1S2 reg, no murmur Lungs: Decreased bs bilateral, no rhonchi, no rales, no accessory muscle use Abdominal: Soft, nontender to palpation, no guarding Ext: No gross muscle atrophy, no edema b/l lower extremities, no contractures Neuro: no focal neuro deficits Psych: Alert, oriented, appropriate affect Based on my assessment of this patient, this patient meets a moderate complexity level of care. Patient has an acute diagnosis of hematuria complicated with fever and hypotension that poses a threat to life or bodily function. Hematuria: UCx negative. UTI ruled out. Urology on board with plans for cystoscopy when hemodynamically stable. ESRD: Nephrology consulted. HD MWFS scheduled. Calcitriol 0.25 mcg to 0.5 mcg daily. Pyrexia: Immunocompromised state due to chronic prednisone therapy use. Cefepime 1 g IV QD and Vancomycin dosed per pharmacy (D3). Patient has a h/o mycobacterium bacteremia. Monitor trough level for signs of toxicity. Follow repeat BCx from 05/11. Elevated troponin: Suspected downtrending relation to recent type II non-STEMI. ASA 81 mg PO QD, Lipitor 20 mg PO QD. No beta edu due to hypotensive episodes. Plans for stress test tomorrow. Atrial fibrillation with RVR: Amiodarone 200 mg PO TID. Chronic hypotension: Prednisone 10 mg PO QD. Fludrocortisone 0.1 mg PO QD. CODE STATUS: FULL CODE DVT Prophylaxis: SCDs GI Prophylaxis: Designated medical POA if patient is not able to make medical decisions for themselves: I have reviewed the following end user consultant notes: Nephrology, Cardiology. I have reviewed the results of the following tests: BCx. CBC and BMP. I have ordered the following tests: CBC, BMP. I have discussed the care of this patient with the following independent historian: Discussed with CLEMENT Pierre. I have independently interpreted the following test below: I have discussed the management of this patient with the following physician: Objective - Vital Signs Vital signs: Vital Signs Temp 98.4 F 05/13/23 04:00 Pulse 74 05/13/23 04:00 Resp 16 05/13/23 04:00 BP 106/70 05/13/23 04:00 Pulse Ox 96 05/13/23 04:00 FiO2 Intake & Output 05/12/23 05/13/23 05/13/23 18:59 06:59 18:59 Intake Total 830 Output Total 1300 0 Balance -470 0 Weight 84.7 kg Intake: Intake, IV Titration 100 Amount Cefepime 2 gm In Sodium 100 Chloride 0.9% 100 ml @ 25 mls/hr IVPB Q12HR@0000, 1200 [facility] Rx#:[id number] Oral 330 Hemodialysis 400 Output: Urine 0 Hemodialysis 1300 Other: # Voids 0 # Bowel Movements 0 - Labs CBC & Chem 7: 05/13/23 07:58 05/13/23 07:58 Labs: Abnormal Lab Results - Last 24 Hours (Table) 05/12/23 Range/Units 08:41 Phosphorus 4.6 H (2.5-4.5) mg/dL Microbiology - Last 24 Hours (Table) 05/11/23 12:35 Blood Culture - Preliminary Blood 05/11/23 10:30 Blood Culture - Preliminary Blood
[2023-05-13 16:08] LABS: % Iron Saturation 11.16 (15.00-50.00)
[2023-05-14] MEDS ORDERED: CAFFEINE CITRATE 60 MG/3 ML VIAL IV PRN (06:00)
[2023-05-14] MEDS ORDERED: REGADENOSON 0.4 MG/5 ML SYRINGE IV PRN (06:00)
[2023-05-14] MEDS ORDERED: AMINOPHYLLINE 500 MG/20 ML VIAL IV PRN (06:00)
[2023-05-14 09:17] LABS: African American GFR (CKD) 8 (>60 ml/min/1.73 sqM); Anion Gap 11 mmol/L; Blood Urea Nitrogen 32 mg/dL (9-20); Calcium 8.4 mg/dL (8.4-10.2); Carbon Dioxide 23 mmol/L (22-30); Chloride 104 mmol/L (98-107); Glucose 76 mg/dL (74-99); HCT 27.1 % (39.0-53.0); HGB 8.3 gm/dL (13.0-17.5); Hypochromasia Marked; MCH 30.9 pg (25.0-35.0); MCHC 30.5 g/dL (31.0-37.0); MCV 101.4 fL (80.0-100.0); Macrocytosis Slight; Mean Platelet Volume 7.2; Non-African American GFR(CKD) 7 (>60 ml/min/1.73 sqM); Platelet Count 170 k/uL (150-450); Potassium 3.8 mmol/L (3.5-5.1); RBC 2.68 m/uL (4.30-5.90); Sodium 138 mmol/L (137-145); WBC 3.5 k/uL (3.8-10.6)
--- NOTE | 2023-05-14 11:19 | P.PN ---
Subjective Progress Note Date: 05/14/23 This is a 52-year-old male with a past medical history significant for atrial fibrillation not on anticoagulation, end-stage renal disease on hemodialysis, kidney transplant, aortic stenosis, and hypotension. Patient follows in the office with Dr. Serrano. We have been asked to see the patient in consultation for elevated troponins. Patient examined at the bedside. Patient presented to the hospital due to hematuria. Patient denies having any chest pain or pressure. He denies any shortness of breath. Denies any dizziness or lightheadedness. DIAGNOSTICS: - EKG reveals atrial fibrillation with a heart rate of 106. - Chest xray there are a few linear bands of opacity at the lung bases bilaterally which may represent atelectasis. This is improved since previous examination. Improving pneumonia would also be a possibility. The cardiac silhouette is moderately enlarged and the pulmonary vessels are within normal limits.. - Laboratory data: WBC 6.6. Hemoglobin 8.7. Platelet count 297. Sodium 137. Potassium 4.7. BUN 45. Creatinine 6.64. Troponin 0.071. 0.064. 0.069. - Current home cardiac medications include aspirin 81 mg daily, Lipitor 20 mg daily, metoprolol tartrate 25 mg twice a day, midodrine 10 mg 4 times a day. - Most recent echocardiogram obtained on 04/25/2023 revealed ejection fraction 55 to 60% mild LVH, mild to moderate MR, mild AR, mild TR 05/11 Patient reports that he is not feeling good today. He is reporting head, chest, neck, and back pain. Patient's blood pressure is noted to be quite low today in the 80s over 40s range. Heart rate remains semielevated in the 80s to 100s. Patient is noted to be unable to tolerate IV diltiazem due to significant drops in blood pressure. Patient has previous history of dysautonomia and is on midodrine. Despite this his blood pressures remain low, it appears especially after dialysis. 05/12 Patient is scheduled for cystoscopy. Patient denies having any chest pain, shortness of breath, palpitations. He is not currently on anticoagulation for A-fib due to history of bleeding. Heart rate is in the 90s, blood pressure 110/72, pulse ox 100% on room air. Telemetry is atrial fibrillation rate controlled. 05/13 Patient states that he has had some chest in the mid or upper sternal area. Blood pressure 120/79, heart rate 70s to 90s, pulse ox 97% on room air. Repeat blood work reveals WBC 3.7, hemoglobin 8.2, BUN 26 creatinine 5.52. Cystoscopy was delayed due to chest pain. Discussed options with the patient regarding cardiac workup which would include a stress test or cardiac catheterization. 05/14 Lexiscan stress test for today. If Lexiscan is abnormal, we will plan to schedule patient for cardiac catheterization. Blood pressure 145/68, heart rate in the 80s, pulse ox 97% on room air. Repeat blood work reveals WBC 3.5, hemoglobin 8.3, platelet count 170. Electrolytes are normal. BUN 32 creatinine 7.71. Physical examination: GENERAL: Well-appearing, well-nourished and in no acute distress. NECK: Supple without JVD or thyromegaly. LUNGS: Breath sounds clear to auscultation bilaterally. Respiration equal and unlabored. No wheezes, rales or rhonchi. HEART: Regular rate and rhythm without murmurs, rubs or gallops. S1 and S2 heard. EXTREMITIES: Normal range of motion, no edema. No clubbing or cyanosis. Peripheral pulses intact and strong. ASSESSMENT: Hematuria UTI with suspected pyelonephritis End-stage renal disease on hemodialysis History of failed kidney transplantation Abnormal troponins, flat, not suggestive of acute coronary syndrome Persistent atrial fibrillation with mild RVR, unable to tolerate anticoagulation due to bleeding issues per patient Valvular heart disease, moderate aortic stenosis, regurgitation History of hypotension, on midodrine PLAN: Continue current medications Continue amiodarone 200 mg 3 times daily plus metoprolol for rate control. Due to risk factors and complaints of chest pain, we will plan to do Lexiscan stress test. If this is abnormal, patient may need to undergo cardiac catheterization. Note that cystoscopy has been placed on hold. Further recommendations pending patient course Nurse practitioner note has been reviewed by physician. Signing provider agrees with the documented findings, assessment, and plan of care documented by GRADE CHECKER as a scribe. Objective - Vital Signs Vital signs: Vital Signs Temp 97.9 F 05/14/23 03:47 Pulse 83 05/14/23 03:47 Resp 19 05/14/23 03:47 BP 145/68 05/14/23 03:47 Pulse Ox 97 05/14/23 03:47 FiO2 Intake & Output 05/13/23 05/14/23 05/14/23 18:59 06:59 18:59 Intake Total 400 Balance 400 Weight 84.9 kg Intake: Intake, IV Titration 50 Amount Cefepime 1 gm In Sodium 50 Chloride 0.9% 50 ml @ 12. 5 mls/hr IVPB DAILY@1200 [facility] Rx#:[id number] Oral 350 Other: # Voids 0 - Labs CBC & Chem 7: 05/14/23 08:22 05/14/23 08:22 Labs: Abnormal Lab Results - Last 24 Hours (Table) 05/13/23 05/14/23 05/14/23 Range/Units 07:58 08:22 08:22 WBC 3.5 L (3.8-10.6) k/uL RBC 2.68 L (4.30-5.90) m/uL Hgb 8.3 L (13.0-17.5) gm/dL Hct 27.1 L (39.0-53.0) % MCV 101.4 H (80.0-100.0) fL MCHC 30.5 L (31.0-37.0) g/dL RDW 16.0 H (11.5-15.5) % BUN 32 H (9-20) mg/dL Creatinine 7.71 H* (0.66-1.25) mg/dL Iron 27 L (65-175) UG/DL % Saturation 11.16 L (15.00-50.00) Transferrin 173.0 L (204.0-354.0) mg/dL Ferritin 391.0 H (22.0-322.0) ng/mL Microbiology - Last 24 Hours (Table) 05/11/23 12:35 Blood Culture - Preliminary Blood 05/11/23 10:30 Blood Culture - Preliminary Blood 05/08/23 15:45 Blood Culture - Final Blood 05/08/23 15:20 Blood Culture - Final Blood
--- NOTE | 2023-05-14 11:29 | CA ---
Lexiscan Nuclear Stress Test Report Name: Morgan Clark Exam Date: 05/14/2023 09:11 Exam Location: [facility] Ht (in): 69 Wt (lb): 186 BSA: 2.00 Ordering Phys: Robyn Adame Referring Phys: ISAIAH, Technologist: MALLORY,, Age: 52 Gender: M : 1970 Procedure CPT: Indications: Reflex order-Stress test ICD-10 Codes: Patient History: Chest pain and history of AFib Medications: Meds past 24 hrs: Pretest Chest Pain: STRESS TEST Lexiscan Protocol Exercise Duration (min:sec): 01:[address] Depressions (mm): Angina Score: Donahue Score: Resting HR (bpm): 74 Peak HR (bpm): 102 Resting BP (mmHg): 143 / 85 Peak BP (mmHg): 206 / 78 MPHR: 169 Target HR: 144 % MPHR: 60 METS: 1.0 Total Dose: Peak Dose: Atropine: Double Product: 79084 BP Response: Stress Termination: INFUSION COMPLETE Stress Symptoms: CHEST PRESSURE,HEAD PRESSURE Stress Summary: ECG ANALYSIS Resting ECG: Atrial fibrillation with nonspecific ST-T wave changes Stress ECG: Patient was given Lexiscan as per protocol did not have chest pain or diagnostic ST segment depression CONCLUSIONS Negative stress test by EKG criteria Cardiolite portion of the stress test will be reported separately Dr. Ray Calvillo MD (Electronically Signed) Final Date: 14 May 2023 11:28
--- NOTE | 2023-05-14 11:52 | P.PN ---
Subjective Patient is seen in follow-up for end-stage renal disease. He is maintained on home hemodialysis. Tolerating dialysis well. Underwent stress test this morning. Denies chest pain or shortness of breath. Vital signs are stable. General: No acute distress. HEENT: Head exam is unremarkable. LUNGS: No audible rhonchi or wheezes. HEART: Rate and Rhythm are regular. ABDOMEN: Nontender. EXTREMITITES: No edema. Objective - Vital Signs Vital signs: Vital Signs Temp 97.9 F 05/14/23 03:47 Pulse 83 05/14/23 03:47 Resp 19 05/14/23 03:47 BP 145/68 05/14/23 03:47 Pulse Ox 97 05/14/23 03:47 FiO2 Intake & Output 05/13/23 05/14/23 05/14/23 18:59 06:59 18:59 Intake Total 400 Balance 400 Weight 84.9 kg Intake: Intake, IV Titration 50 Amount Cefepime 1 gm In Sodium 50 Chloride 0.9% 50 ml @ 12. 5 mls/hr IVPB DAILY@1200 [facility] Rx#:[id number] Oral 350 Other: # Voids 0 - Labs CBC & Chem 7: 05/14/23 08:22 05/14/23 08:22 Labs: Abnormal Lab Results - Last 24 Hours (Table) 05/13/23 05/14/23 05/14/23 Range/Units 07:58 08:22 08:22 WBC 3.5 L (3.8-10.6) k/uL RBC 2.68 L (4.30-5.90) m/uL Hgb 8.3 L (13.0-17.5) gm/dL Hct 27.1 L (39.0-53.0) % MCV 101.4 H (80.0-100.0) fL MCHC 30.5 L (31.0-37.0) g/dL RDW 16.0 H (11.5-15.5) % BUN 32 H (9-20) mg/dL Creatinine 7.71 H* (0.66-1.25) mg/dL Iron 27 L (65-175) UG/DL % Saturation 11.16 L (15.00-50.00) Transferrin 173.0 L (204.0-354.0) mg/dL Ferritin 391.0 H (22.0-322.0) ng/mL Microbiology - Last 24 Hours (Table) 05/11/23 12:35 Blood Culture - Preliminary Blood 05/11/23 10:30 Blood Culture - Preliminary Blood 05/08/23 15:45 Blood Culture - Final Blood 05/08/23 15:20 Blood Culture - Final Blood Assessment and Plan Plan: Assessment: 1. End-stage renal disease maintained on home hemodialysis via femoral dialysis catheter. 2. Gross hematuria. Urology following. Cystoscopy pending. 3. Chronic hypotension maintained on midodrine and Florinef. Also on p rednisone. Stable. 4. Chronic kidney disease mineral bone disease maintained on calcitriol. Phosp horus level 4.6 dated May 12, 2023. 5. Anemia of chronic kidney disease maintained on Aranesp. 6. History of failed renal transplant. Plan: Currently seen while undergoing hemodialysis. He will be maintained on Friday schedule while in the hospital. Follow-up stress test results. Patient has difficulty following with outpatient appointments. It will be better if he gets a cystoscopy done this admission. Discussed with primary team.
--- NOTE | 2023-05-14 11:55 | NM ---
EXAMINATION TYPE: NM stress lexiscan cardiolite DATE OF EXAM: 05/14/2023 COMPARISON: NONE CLINICAL INDICATION: Male, 52 years old with history of chest pain; TECHNIQUE: After the intravenous administration of 10.5 mCi Tc 99m Sestamibi - Cardiolite resting SP ECT images acquired 120 minutes post injection. The patient received 0.4mg Lexiscan, 26.1 mCi Tc 99m Sestamibi - Stress images obtained [address] injection FINDINGS: Review of stress and rest SPECT images demonstrates no distinct perfusion abnormality. Gated analysi s shows normal wall motion with an estimated left ventricular ejection fraction of 61n %. TID is david culated at 1.02, within normal limits. IMPRESSION: No scintigraphic evidence for reversible ischemia.
--- NOTE | 2023-05-14 12:31 | P.PN ---
Subjective Progress Note Date: 05/14/23 The patient was seen for hematuria. He has renal failure. He is on dialysis. He was to have a cystoscopy with retrograde pyelogram but this was canceled due to cardiac issues, A. fib patient is not having hematuria present. Objective - Vital Signs Vital signs: Vital Signs Temp 97.9 F 05/14/23 03:47 Pulse 83 05/14/23 03:47 Resp 19 05/14/23 03:47 BP 145/68 05/14/23 03:47 Pulse Ox 97 05/14/23 03:47 FiO2 Intake & Output 05/13/23 05/14/23 05/14/23 18:59 06:59 18:59 Intake Total 400 Balance 400 Weight 84.9 kg Intake: Intake, IV Titration 50 Amount Cefepime 1 gm In Sodium 50 Chloride 0.9% 50 ml @ 12. 5 mls/hr IVPB DAILY@1200 [facility] Rx#:[id number] Oral 350 Other: # Voids 0 - Labs CBC & Chem 7: 05/14/23 08:22 05/14/23 08:22 Labs: Abnormal Lab Results - Last 24 Hours (Table) 05/13/23 05/14/23 05/14/23 Range/Units 07:58 08:22 08:22 WBC 3.5 L (3.8-10.6) k/uL RBC 2.68 L (4.30-5.90) m/uL Hgb 8.3 L (13.0-17.5) gm/dL Hct 27.1 L (39.0-53.0) % MCV 101.4 H (80.0-100.0) fL MCHC 30.5 L (31.0-37.0) g/dL RDW 16.0 H (11.5-15.5) % BUN 32 H (9-20) mg/dL Creatinine 7.71 H* (0.66-1.25) mg/dL Iron 27 L (65-175) UG/DL % Saturation 11.16 L (15.00-50.00) Transferrin 173.0 L (204.0-354.0) mg/dL Ferritin 391.0 H (22.0-322.0) ng/mL Microbiology - Last 24 Hours (Table) 05/11/23 12:35 Blood Culture - Preliminary Blood 05/11/23 10:30 Blood Culture - Preliminary Blood 05/08/23 15:45 Blood Culture - Final Blood 05/08/23 15:20 Blood Culture - Final Blood Assessment and Plan Assessment: Impression: Hematuria indeterminate etiology. The patient can be seen as an outpatient in our office and can be set up for an outpatient cystoscopy with retrograde pyelograms as his hematuria stopped and he is otherwise having cardiac issues that would benefit from proceeding with cystoscopy with retrograde pyelogram.
--- NOTE | 2023-05-14 13:15 | P.PN ---
Subjective Progress Note Date: 05/14/23 Patient is a 52-year-old male with ESRD on HD MWFS at home, chronic hypotension, AFib not on AC, GERD, seizure disorder, anemia, and blindness who presented to the hospital with complaints of hematuria. Patient was recently hospitalized here from 04/25 through 04/28 for A-Fib with RVR. On arrival to the ER here he was tachycardic with a HR of 105 and slightly hypotensive with a BP of 81/59. Laboratory analysis included CBC, Coags, CMP, Mag, and troponin which were remarkable for BUN 45, creatinine 6.64, hemoglobin 8.7. Troponin was elevated at 0.071, 0.064, 0.069 but significantly down from a max of 23 earlier this month. UA showed greater than 182 RBC and WBCs. In the emergency department he was given Rocephin 2g IV and arrangements were made for admission. He was continued on Rocephin from 05/08-05/11. Nephrology was consulted and his home dialysis was resumed. His UCx came back negative and urology was consulted for hematuria. He then began having issues with A-fib with RVR. Cardizem drip was initiated by cardiology and the patient became hypotensive requiring an extra midodrine, Florinef and IV fluid resuscitation. He was eventually transitioned to Amiodarone 200 mg PO TID. He then spiked a fever of 101.5F on 05/11 and antibiotics were broadened to cefepime and vancomycin on 05/12. C. difficile, RSV, Flu, COVID negative. Repeat blood cultures were drawn on 05/11. 05/13 Patient scheduled for stress test of 05/14. 05/14 Patient was seen and examined. Underwent stress test which was negative. He reports continued hematuria. Urology has recommended outpatient cystoscopy but Dr. Jerome would prefer he have the procedure done during this hospitalization. CBC WBC 3.5 Hg 8.3 Hct 27.1 MCV 101.4. BMP BUN 32 Cr 7.71. Vital signs reviewed General: Nontoxic, no distress, appears at stated age Cardiovascular: S1S2 reg, no murmur Lungs: Decreased bs bilateral, no rhonchi, no rales, no accessory muscle use Abdominal: Soft, nontender to palpation, no guarding Ext: No gross muscle atrophy, no edema b/l lower extremities, no contractures Neuro: no focal neuro deficits Psych: Alert, oriented, appropriate affect Based on my assessment of this patient, this patient meets a moderate complexity level of care. Patient has an acute diagnosis of hematuria complicated with fever and hypotension that poses a threat to life or bodily function. Hematuria: UCx negative. UTI ruled out. Urology on board with plans for cystoscopy when hemodynamically stable. ESRD: Nephrology consulted. HD MWFS scheduled. Calcitriol 0.25 mcg to 0.5 mcg daily. Pyrexia: Immunocompromised state due to chronic prednisone therapy use. Cefepime 1 g IV QD and Vancomycin dosed per pharmacy (D4). Patient has a h/o mycobacterium bacteremia. Monitor trough level for signs of toxicity. Follow repeat BCx from 05/11. Elevated troponin: Suspected downtrending relation to recent type II non-STEMI. ASA 81 mg PO QD, Lipitor 20 mg PO QD. No beta edu due to hypotensive episodes. Stress test negative. Atrial fibrillation with RVR: Amiodarone 200 mg PO TID. Chronic hypotension: Prednisone 10 mg PO QD. Fludrocortisone 0.1 mg PO QD. CODE STATUS: FULL CODE DVT Prophylaxis: SCDs GI Prophylaxis: Designated medical POA if patient is not able to make medical decisions for themselves: I have reviewed the following telesales consultant notes: Nephrology, Urology, Cardiology. I have reviewed the results of the following tests: Stress. CBC and BMP. I have ordered the following tests: CBC, BMP. I have discussed the care of this patient with the following independent historian: Discussed with CLEMENT Pierre. I have independently interpreted the following test below: I have discussed the management of this patient with the following physician: Discussed with Dr. Jerome as above. Objective - Vital Signs Vital signs: Vital Signs Temp 97.9 F 05/14/23 03:47 Pulse 98 05/14/23 12:00 Resp 16 05/14/23 12:00 BP 148/86 05/14/23 12:00 Pulse Ox 100 05/14/23 12:00 FiO2 Intake & Output 05/13/23 05/14/23 05/14/23 18:59 06:59 18:59 Intake Total 400 Balance 400 Weight 84.9 kg Intake: Intake, IV Titration 50 Amount Cefepime 1 gm In Sodium 50 Chloride 0.9% 50 ml @ 12. 5 mls/hr IVPB DAILY@1200 [facility] Rx#:[id number] Oral 350 Other: # Voids 0 - Labs CBC & Chem 7: 05/14/23 08:22 05/14/23 08:22 Labs: Abnormal Lab Results - Last 24 Hours (Table) 05/13/23 05/14/23 05/14/23 Range/Units 07:58 08:22 08:22 WBC 3.5 L (3.8-10.6) k/uL RBC 2.68 L (4.30-5.90) m/uL Hgb 8.3 L (13.0-17.5) gm/dL Hct 27.1 L (39.0-53.0) % MCV 101.4 H (80.0-100.0) fL MCHC 30.5 L (31.0-37.0) g/dL RDW 16.0 H (11.5-15.5) % BUN 32 H (9-20) mg/dL Creatinine 7.71 H* (0.66-1.25) mg/dL Iron 27 L (65-175) UG/DL % Saturation 11.16 L (15.00-50.00) Transferrin 173.0 L (204.0-354.0) mg/dL Ferritin 391.0 H (22.0-322.0) ng/mL Microbiology - Last 24 Hours (Table) 05/11/23 12:35 Blood Culture - Preliminary Blood 05/11/23 10:30 Blood Culture - Preliminary Blood 05/08/23 15:45 Blood Culture - Final Blood 05/08/23 15:20 Blood Culture - Final Blood
[2023-05-15 08:57] LABS: Anisocytosis Slight; HGB 8.3 gm/dL (13.0-17.5); Hypochromasia Marked; MCH 32.6 pg (25.0-35.0); MCV 101.9 fL (80.0-100.0); Macrocytosis Slight; Mean Platelet Volume 7.9; Platelet Count 139 k/uL (150-450); RBC 2.55 m/uL (4.30-5.90); RDW 16.1 % (11.5-15.5); WBC 3.9 k/uL (3.8-10.6)
[2023-05-15 09:21] LABS: African American GFR (CKD) 12 (>60 ml/min/1.73 sqM); Anion Gap 9 mmol/L; Blood Urea Nitrogen 20 mg/dL (9-20); Calcium 8.4 mg/dL (8.4-10.2); Carbon Dioxide 26 mmol/L (22-30); Chloride 103 mmol/L (98-107); Glucose 93 mg/dL (74-99); Non-African American GFR(CKD) 10 (>60 ml/min/1.73 sqM); Potassium 3.6 mmol/L (3.5-5.1); Sodium 138 mmol/L (137-145)
--- NOTE | 2023-05-15 10:34 | P.PN ---
Subjective Patient is seen in follow-up for end-stage renal disease. He is maintained on home hemodialysis. No problems with dialysis yesterday.nderwent stress test this morning. Denies chest pain or shortness of breath. Vital signs are stable. General: No acute distress. HEENT: Head exam is unremarkable. LUNGS: No audible rhonchi or wheezes. HEART: Rate and Rhythm are regular. ABDOMEN: Nontender. EXTREMITITES: No edema. Objective - Vital Signs Vital signs: Vital Signs Temp 98.1 F 05/15/23 03:17 Pulse 62 05/15/23 03:17 Resp 19 05/15/23 03:17 BP 121/64 05/15/23 03:17 Pulse Ox 98 05/15/23 03:17 FiO2 Intake & Output 05/14/23 05/15/23 05/15/23 18:59 06:59 18:59 Intake Total 885 240 Output Total 2200 Balance -1315 240 Weight 82.9 kg Intake: Intake, IV Titration 5 Amount Cefepime 1 gm In Sodium 5 Chloride 0.9% 50 ml @ 12. 5 mls/hr IVPB DAILY@1200 [facility] Rx#:[id number] Oral 480 240 Hemodialysis 400 Output: Hemodialysis 2200 Other: # Voids 0 - Labs CBC & Chem 7: 05/15/23 08:29 05/15/23 08:29 Labs: Abnormal Lab Results - Last 24 Hours (Table) 05/15/23 05/15/23 Range/Units 08:29 08:29 RBC 2.55 L (4.30-5.90) m/uL Hgb 8.3 L (13.0-17.5) gm/dL Hct 26.0 L (39.0-53.0) % MCV 101.9 H (80.0-100.0) fL RDW 16.1 H (11.5-15.5) % Plt Count 139 L (150-450) k/uL Creatinine 5.87 H (0.66-1.25) mg/dL Microbiology - Last 24 Hours (Table) 05/11/23 12:35 Blood Culture - Preliminary Blood 05/11/23 10:30 Blood Culture - Preliminary Blood Assessment and Plan Plan: Assessment: 1. End-stage renal disease maintained on home hemodialysis via femoral dialysis catheter. 2. Gross hematuria. Urology following. Cystoscopy pending. 3. Chronic hypotension maintained on midodrine and Florinef. Also on prednisone. Stable. 4. Chronic kidney disease mineral bone disease maintained on calcitriol. Phosphorus level 4.6 dated May 12, 2023. 5. Anemia of chronic kidney disease maintained on Aranesp. 6. History of failed renal transplant. Plan: Hemodialysis tomorrow. He will be maintained on Friday schedule while in the hospital. Stress test negative. Patient has difficulty following with outpatient appointments. It will be better if he gets a cystoscopy done this admission. Discussed with primary team.
[2023-05-15] MEDS ORDERED: VANCOMYCIN 1,250 MG in SODIUM CHLORIDE 0.9% 250 ML IVPB ONE (11:00)
--- NOTE | 2023-05-15 12:21 | P.DS ---
Providers Date of admission: 05/08/23 16:10 Expected date of discharge: 05/15/23 Attending physician: Mehran Canales MD Consults: 05/08/23 16:08 Consult Physician Urgent Consulting Provider: [facility] Consult Reason/Comments: Chest pain, elevated troponin Do you want consulting provider notified?: Yes 05/08/23 16:16 Consult Physician Urgent Consulting Provider: Mychal Jerome Consult Reason/Comments: Renal failure Do you want consulting provider notified?: Yes 05/10/23 09:00 Consult Physician Routine Consulting Provider: Keyon Hrendon Consult Reason/Comments: hematuria, urine culture negative Do you want consulting provider notified?: Yes Primary care physician: Stated None Hospital Course: Patient is a 52-year-old male with ESRD on HD MWFS at home, chronic hypotension, AFib not on AC, GERD, seizure disorder, anemia, and blindness who presented to the hospital with complaints of hematuria. Patient was recently hospitalized here from 04/25 through 04/28 for A-Fib with RVR. On arrival to the ER here he was tachycardic with a HR of 105 and slightly hypotensive with a BP of 81/59. Laboratory analysis included CBC, Coags, CMP, Mag, and troponin which were remarkable for BUN 45, creatinine 6.64, hemoglobin 8.7. Troponin was elevated at 0.071, 0.064, 0.069 but significantly down from a max of 23 earlier this month. UA showed greater than 182 RBC and WBCs. In the emergency department he was given Rocephin 2g IV and arrangements were made for admission. He was continued on Rocephin from 05/08-05/11. Nephrology was consulted and his home dialysis was resumed. His UCx came back negative and urology was consulted for hematuria. He then began having issues with A-fib with RVR. Cardizem drip was initiated by cardiology and the patient became hypotensive requiring an extra midodrine, Florinef and IV fluid resuscitation. He was eventually transitioned to Amiodarone 200 mg PO TID and Metoprolol 25 mg PO TID. He then spiked a fever of 101.5F on 05/11 and antibiotics were broadened to cefepime and vancomycin on 05/12. C. difficile, RSV, Flu, COVID negative. Repeat blood cultures were drawn on 05/11. 05/13 Patient scheduled for stress test of 05/14. 05/14 Patient was seen and examined. Underwent stress test which was negative. He reports continued hematuria. Urology has recommended outpatient cystoscopy but Dr. Jerome would prefer he have the procedure done during this hospitalization. CBC WBC 3.5 Hg 8.3 Hct 27.1 MCV 101.4. BMP BUN 32 Cr 7.71. Patient was seen and examined. No complaints. Dr. Navarro adamant about pursuing cystoscopy in the outpatient setting. CBC Hg 8.3 Hct 26 MCV 101.9 Plt 139. BMP Cr 5.87. Patient has been afebrile since 05/11 and cultures have been negative. We will discontinue antibiotics at this time. Advised to follow up with Dr. Herndon within 1 week of discharge. Prescription for Metoprolol and Amiodarone sent to pharmacy. Vital signs reviewed General: Nontoxic, no distress, appears at stated age Cardiovascular: S1S2 reg, no murmur Lungs: Decreased bs bilateral, no rhonchi, no rales, no accessory muscle use Abdominal: Soft, nontender to palpation, no guarding Ext: No gross muscle atrophy, no edema b/l lower extremities, no contractures Neuro: no focal neuro deficits Psych: Alert, oriented, appropriate affect Discharge Diagnosis: Hematuria ESRD Pyrexia Elevated troponin Atrial fibrillation with RVR Chronic hypotension This complex discharge took 35 minutes to complete. Patient Condition at Discharge: Stable Plan - Discharge Summary Discharge Rx Participant: Yes New Discharge Prescriptions: New Amiodarone [Cordarone] 200 mg PO TID #90 tab Metoprolol Tartrate [Lopressor] 25 mg PO TID #90 tab Continue Montelukast [Singulair] 10 mg PO HS Levothyroxine Sodium [Synthroid] 50 mcg PO DAILY allopurinoL 100 mg PO DAILY Omeprazole [PriLOSEC] 20 mg PO DAILY Darbepoetin Martin [Aranesp] 60 mcg SQ TH predniSONE 10 mg PO DAILY calcitrioL 0.25 mcg PO SUTUWETHSA calcitrioL 0.5 mcg PO MOFR Midodrine HCl [ProAmatine] 10 mg PO QID Atorvastatin [Lipitor] 20 mg PO DAILY Fludrocortisone [Florinef] 0.1 mg PO DAILY Aspirin 81 mg PO DAILY #30 tab Acetaminophen Tab [Tylenol] 650 mg PO Q4HR PRN tab PRN Reason: Pain Discontinued Metoprolol Tartrate [Lopressor] 25 mg PO BID #60 tab Discharge Medication List Levothyroxine Sodium [Synthroid] 50 mcg PO DAILY 12/18/17 [History] Montelukast [Singulair] 10 mg PO HS 12/18/17 [History] predniSONE 10 mg PO DAILY 04/25/21 [History] Atorvastatin [Lipitor] 20 mg PO DAILY 10/15/22 [History] Midodrine HCl [ProAmatine] 10 mg PO QID 10/15/22 [History] allopurinoL 100 mg PO DAILY 10/15/22 [History] calcitrioL 0.25 mcg PO SUTUWETHSA 10/15/22 [History] calcitrioL 0.5 mcg PO MOFR 10/15/22 [History] Fludrocortisone [Florinef] 0.1 mg PO DAILY 04/25/23 [History] Omeprazole [PriLOSEC] 20 mg PO DAILY 04/25/23 [History] Acetaminophen Tab [Tylenol] 650 mg PO Q4HR PRN tab 04/28/23 [Rx] Aspirin 81 mg PO DAILY #30 tab 04/28/23 [Rx] Darbepoetin Martin [Aranesp] 60 mcg SQ TH 05/08/23 [History] Amiodarone [Cordarone] 200 mg PO TID #90 tab 05/15/23 [Rx] Metoprolol Tartrate [Lopressor] 25 mg PO TID #90 tab 05/15/23 [Rx] Follow up Appointment(s)/Referral(s): Keyon Herndon MD [STAFF PHYSICIAN] - 1 Week Mychal Jerome DO [STAFF PHYSICIAN] - 1-2 days Activity/Diet/Wound Care/Special Instructions: Diet: Renal Discharge Disposition: HOME SELF-CARE
[2023-05-15 13:17] VITALS: BP 123/79; PULSE 64; RESP 18; TEMP 97.8
[2023-05-15 13:18] VITALS: BMI 26.9
--- NOTE | 2023-05-15 13:22 | P.PN ---
Subjective Progress Note Date: 05/15/23 This is a 52-year-old male with a past medical history significant for atrial fibrillation not on anticoagulation, end-stage renal disease on hemodialysis, kidney transplant, aortic stenosis, and hypotension. Patient follows in the office with Dr. Serrano. We have been asked to see the patient in consultation for elevated troponins. Patient examined at the bedside. Patient presented to the hospital due to hematuria. Patient denies having any chest pain or pressure. He denies any shortness of breath. Denies any dizziness or lightheadedness. DIAGNOSTICS: - EKG reveals atrial fibrillation with a heart rate of 106. - Chest xray there are a few linear bands of opacity at the lung bases bilaterally which may represent atelectasis. This is improved since previous examination. Improving pneumonia would also be a possibility. The cardiac silhouette is moderately enlarged and the pulmonary vessels are within normal limits.. - Laboratory data: WBC 6.6. Hemoglobin 8.7. Platelet count 297. Sodium 137. Potassium 4.7. BUN 45. Creatinine 6.64. Troponin 0.071. 0.064. 0.069. - Current home cardiac medications include aspirin 81 mg daily, Lipitor 20 mg daily, metoprolol tartrate 25 mg twice a day, midodrine 10 mg 4 times a day. - Most recent echocardiogram obtained on 04/25/2023 revealed ejection fraction 55 to 60% mild LVH, mild to moderate MR, mild AR, mild TR 05/11 Patient reports that he is not feeling good today. He is reporting head, chest, neck, and back pain. Patient's blood pressure is noted to be quite low today in the 80s over 40s range. Heart rate remains semielevated in the 80s to 100s. Patient is noted to be unable to tolerate IV diltiazem due to significant drops in blood pressure. Patient has previous history of dysautonomia and is on midodrine. Despite this his blood pressures remain low, it appears especially after dialysis. 05/12 Patient is scheduled for cystoscopy. Patient denies having any chest pain, shortness of breath, palpitations. He is not currently on anticoagulation for A-fib due to history of bleeding. Heart rate is in the 90s, blood pressure 110/72, pulse ox 100% on room air. Telemetry is atrial fibrillation rate controlled. 05/13 Patient states that he has had some chest in the mid or upper sternal area. Blood pressure 120/79, heart rate 70s to 90s, pulse ox 97% on room air. Repeat blood work reveals WBC 3.7, hemoglobin 8.2, BUN 26 creatinine 5.52. Cystoscopy was delayed due to chest pain. Discussed options with the patient regarding cardiac workup which would include a stress test or cardiac catheterization. 05/14 Lexiscan stress test for today. If Lexiscan is abnormal, we will plan to schedule patient for cardiac catheterization. Blood pressure 145/68, heart rate in the 80s, pulse ox 97% on room air. Repeat blood work reveals WBC 3.5, hemoglobin 8.3, platelet count 170. Electrolytes are normal. BUN 32 creatinine 7.71. Yesterday, patient underwent Lexiscan stress test that showed no reversible isc hemia. Blood pressure 121/64, heart rate in the 60s to 90s, pulse ox 98% on room air. Hemoglobin is 8.3. Patient denies having any chest pain. Patient has follow-up with urology with plan for cystoscopy. Patient will need to start anticoagulation following cystoscopy once cleared by urology. Physical examination: GENERAL: Well-appearing, well-nourished and in no acute distress. NECK: Supple without JVD or thyromegaly. LUNGS: Breath sounds clear to auscultation bilaterally. Respiration equal and unlabored. No wheezes, rales or rhonchi. HEART: Regular rate and rhythm without murmurs, rubs or gallops. S1 and S2 heard. EXTREMITIES: Normal range of motion, no edema. No clubbing or cyanosis. Peripheral pulses intact and strong. ASSESSMENT: Hematuria UTI with suspected pyelonephritis End-stage renal disease on hemodialysis History of failed kidney transplantation Abnormal troponins, flat, not suggestive of acute coronary syndrome Persistent atrial fibrillation with mild RVR, unable to tolerate anticoagulation due to bleeding issues per patient Valvular heart disease, moderate aortic stenosis, regurgitation History of hypotension, on midodrine PLAN: Continue current medications Patient to bestarted on Eliquis once cleared by urology. Patient will need follow-up with Dr. Serrano in the office 1 week following discharge. Nurse practitioner note has been reviewed by physician. Signing provider agrees with the documented findings, assessment, and plan of care documented by [employer] as a scribe. Objective - Vital Signs Vital signs: Vital Signs Temp 98.1 F 05/15/23 03:17 Pulse 62 05/15/23 03:17 Resp 19 05/15/23 03:17 BP 121/64 05/15/23 03:17 Pulse Ox 98 05/15/23 03:17 FiO2 Intake & Output 05/14/23 05/15/23 05/15/23 18:59 06:59 18:59 Intake Total 885 240 Output Total 2200 Balance -1315 240 Weight 82.9 kg Intake: Intake, IV Titration 5 Amount Cefepime 1 gm In Sodium 5 Chloride 0.9% 50 ml @ 12. 5 mls/hr IVPB DAILY@1200 [facility] Rx#:[id number] Oral 480 240 Hemodialysis 400 Output: Hemodialysis 2200 Other: # Voids 0 - Labs CBC & Chem 7: 05/15/23 08:29 05/15/23 08:29 Labs: Abnormal Lab Results - Last 24 Hours (Table) 05/14/23 05/14/23 05/15/23 Range/Units 08:22 08:22 08:29 WBC 3.5 L (3.8-10.6) k/uL RBC 2.68 L 2.55 L (4.30-5.90) m/uL Hgb 8.3 L 8.3 L (13.0-17.5) gm/dL Hct 27.1 L 26.0 L (39.0-53.0) % MCV 101.4 H 101.9 H (80.0-100.0) fL MCHC 30.5 L (31.0-37.0) g/dL RDW 16.0 H 16.1 H (11.5-15.5) % Plt Count 139 L (150-450) k/uL BUN 32 H (9-20) mg/dL Creatinine 7.71 H* (0.66-1.25) mg/dL Microbiology - Last 24 Hours (Table) 05/11/23 12:35 Blood Culture - Preliminary Blood 05/11/23 10:30 Blood Culture - Preliminary Blood
== END 2023-05-15 13:58 | disposition home or self-care (01) | DRG 696 ==
LOC: SUPCPDRO 12:50 → EC 12:50 → OBSVTOIN 16:10 → 6NMEDSUR 16:10 → 3SCARD 20:45
PROVIDERS: ADMIT Internal Medicine; ATTEND Internal Medicine
PROC: 5A1D70Z Performance of Urinary Filtration, Intermittent, Less than 6 Hours Per Day (ICD-10-PCS; principal; 2023-05-09)
DX: R31.0 Gross hematuria (principal); I12.0 Hypertensive chronic kidney disease with stage 5 chronic kidney disease or end stage renal disease; T86.12 Kidney transplant failure; D84.9 Immunodeficiency, unspecified; I48.19 Other persistent atrial fibrillation; T86.19 Other complication of kidney transplant; N13.6 Pyonephrosis; Z11.52 Encounter for screening for COVID-19; N18.6 End stage renal disease; T38.0X5A Adverse effect of glucocorticoids and synthetic analogues, initial encounter; D63.1 Anemia in chronic kidney disease; G89.29 Other chronic pain; I95.89 Other hypotension; K21.9 Gastro-esophageal reflux disease without esophagitis; R29.6 Repeated falls; I08.3 Combined rheumatic disorders of mitral, aortic and tricuspid valves; E03.9 Hypothyroidism, unspecified; R79.89 Other specified abnormal findings of blood chemistry; R00.0 Tachycardia, unspecified; E11.22 Type 2 diabetes mellitus with diabetic chronic kidney disease; E86.0 Dehydration; Z53.09 Procedure and treatment not carried out because of other contraindication; H54.7 Unspecified visual loss; I25.2 Old myocardial infarction; G40.409 Other generalized epilepsy and epileptic syndromes, not intractable, without status epilepticus; M89.8X9 Other specified disorders of bone, unspecified site; Y83.0 Surgical operation with transplant of whole organ as the cause of abnormal reaction of the patient, or of later complication, without mention of misadventure at the time of the procedure; Z79.52 Long term (current) use of systemic steroids; Z79.890 Hormone replacement therapy; Z99.2 Dependence on renal dialysis; Z91.81 History of falling; X58.XXXA Exposure to other specified factors, initial encounter; Z79.82 Long term (current) use of aspirin; Z79.899 Other long term (current) drug therapy; Z88.5 Allergy status to narcotic agent; Z88.8 Allergy status to other drugs, medicaments and biological substances; Z88.2 Allergy status to sulfonamides; Z91.041 Radiographic dye allergy status; Z88.0 Allergy status to penicillin
CPT/HCPCS: 36415; 71046; 74176; 78452; 80048; 80053; 80061; 80202; 81001; 82728; 83540; 83550; 83605; 83735; 84100; 84484; 85025; 85027; 85610; 85730; 87040; 87086; 87324; 87340; 87636; 90935; 93005; 93017; 96374; 99285

== ENCOUNTER 2023-05-28 17:00 | Emergency (ER) | payer MEDICARE ==
--- NOTE | 2023-05-28 17:57 | XR ---
EXAMINATION TYPE: XR knee complete LT, XR femur LT DATE OF EXAM: 05/28/2023 5:45 PM CLINICAL INDICATION:Male, 52 years old with history of swelling pain left femur knee; [facility] COMPARISON: 03/24/2023. TECHNIQUE: XR knee complete LT, XR femur LT; examined in Frontal, lateral and oblique projections. FINDINGS: No evidence of any acute osseous pathology. A perfect lateral knee demonstrates small kne e joint effusion in the suprapatellar recess. There is severe atherosclerosis of the arterial vascula ture. Mild osteophyte formation of the tibial plateau and patella. Hip demonstrates mild osteophyte f ormation and superior acetabulum. IMPRESSION: 1. No acute osseous pathology. 2. Mild left knee and left hip osteoarthritic changes. 3. Small left knee joint effusion. 4. Severe atherosclerosis of the arterial vasculature. Correlate with calcium serum markers
[2023-05-28] MEDS: ACETAMINOPHEN TAB 500 MG TAB PO STA (19:28)
[2023-05-28] MEDS: methocarbamoL 500 MG TAB PO STA (19:28)
--- NOTE | 2023-05-28 19:37 | ED ---
General Adult HPI - General Chief complaint: Extremity Injury, Lower Stated complaint: Fall Time Seen by Provider: 05/28/23 18:45 Source: patient, RN notes reviewed, old records reviewed Mode of arrival: wheelchair Limitations: no limitations - History of Present Illness Initial comments: Patient is a 52-year-old male who presents emergency department after a fall. I evaluated the patient when he was placed in a room. X-rays were obtained while the patient was in triage. Stray of the left lower extremity has already been completed. Patient is legally blind and stepped up onto a step and felt his knee on the left side gave out on him. States he fell backwards but did not hit his head. Did not lose consciousness. Did land onto his ribs on his back though and he is having pain there. Is also complaining of some bilateral shoulder pain as well as left hip pain and left knee pain. Is not on blood thinners. Denies any other acute complaints at this time. I evaluate the patient when he was placed in room 9. - Related Data Home Medications Medication Instructions Recorded Confirmed Levothyroxine Sodium [Synthroid] 50 mcg PO DAILY 12/18/17 05/08/23 Montelukast [Singulair] 10 mg PO HS 12/18/17 05/08/23 predniSONE 10 mg PO DAILY 04/25/21 05/08/23 Atorvastatin [Lipitor] 20 mg PO DAILY 10/15/22 05/08/23 Midodrine HCl [ProAmatine] 10 mg PO QID 10/15/22 05/08/23 allopurinoL 100 mg PO DAILY 10/15/22 05/08/23 calcitrioL 0.25 mcg PO SUTUWETHSA 10/15/22 05/08/23 calcitrioL 0.5 mcg PO MOFR 10/15/22 05/08/23 Fludrocortisone [Florinef] 0.1 mg PO DAILY 04/25/23 05/08/23 Omeprazole [PriLOSEC] 20 mg PO DAILY 04/25/23 05/08/23 Darbepoetin Martin [Aranesp] 60 mcg SQ TH 05/08/23 05/08/23 Previous Rx's Medication Instructions Recorded Acetaminophen Tab [Tylenol] 650 mg PO Q4HR PRN tab 04/28/23 Aspirin 81 mg PO DAILY #30 tab 02/12/24 Amiodarone [Cordarone] 200 mg PO TID #90 tab 05/15/23 Metoprolol Tartrate [Lopressor] 25 mg PO TID #90 tab 05/15/23 methocarbamoL [Robaxin-750] 1,500 mg PO TID PRN 7 Days #42 tab 05/28/23 Allergies Allergy/AdvReac Type Severity Reaction Status Date / Time adhesive tape Allergy Itching Verified 05/08/23 14:37 codeine Allergy Rash/Hives Verified 05/08/23 14:37 cyclobenzaprine Allergy Rash/Hives Verified 05/08/23 14:37 [From Flexeril] diphenhydramine Allergy Anaphylaxis Verified 05/08/23 14:37 [From Benadryl] hydromorphone [From Dilaudid] Allergy Rash/Hives Verified 05/08/23 14:37 hydroxyzine Allergy Anaphylaxis Verified 05/08/23 14:37 Iodinated Contrast Media Allergy Anaphylaxis Verified 05/08/23 14:37 [Iodinated Contrast- Oral and IV Dye] pantoprazole [From Protonix] Allergy Anaphylaxis Verified 05/08/23 14:37 Penicillins Allergy Rash/Hives Verified 05/08/23 14:37 potassium chloride Allergy Rash/Hives Verified 05/08/23 14:37 pregabalin [From Lyrica] Allergy Anaphylaxis Verified 05/08/23 14:37 sevelamer Allergy Rash/Hives Verified 05/08/23 14:37 warfarin [From Coumadin] Allergy Anaphylaxis Verified 05/08/23 14:37 acetaminophen [From Vicodin] AdvReac Nausea & Verified 05/08/23 14:37 Vomiting aripiprazole [From Abilify] AdvReac Abdominal Verified 05/08/23 14:37 Pain aztreonam AdvReac Unknown Verified 05/08/23 14:37 calcitriol AdvReac Unknown Verified 05/08/23 14:37 cefadroxil AdvReac Unknown Verified 05/08/23 14:37 enalapril AdvReac Unknown Verified 05/08/23 14:37 hydrocodone [From Vicodin] AdvReac Nausea & Verified 05/08/23 14:37 Vomiting Influenza Virus Vaccines AdvReac Unknown Verified 05/08/23 14:37 levofloxacin [From Levaquin] AdvReac Abdominal Verified 05/08/23 14:37 Pain meloxicam [From Mobic] AdvReac Abdominal Verified 05/08/23 14:37 Pain morphine AdvReac Unknown Verified 05/08/23 14:37 propoxyphene AdvReac Unknown Verified 05/08/23 14:37 Sulfa (Sulfonamide AdvReac Vomiting Verified 05/08/23 14:37 Antibiotics) tramadol AdvReac Unknown Verified 05/08/23 14:37 Review of Systems ROS Statement: Those systems with pertinent positive or pertinent negative responses have been documented in the HPI. Review of Systems: CONST: Denies fever EYES: Denies blurry vision ENT: Denies nasal congestion C/V: Denies Chest pain RESP: Denies shortness of breath GI: Denies abdominal pain : Denies dysuria SKIN: Denies rash. MSK: Endorses back pain, left hip pain, left knee pain. NEURO: Denies headache ROS Other: All systems not noted in ROS Statement are negative. Past Medical History Past Medical History: Atrial Fibrillation, Dialysis, GERD/Reflux, Renal Disease, Seizure Disorder, Thyroid Disorder Additional Past Medical History / Comment(s): hemodialysis M/W,F,/S at home, diverticulitis,blind, shingles in February, recent falls, kidney transplant in 1998, CAPD when pt was 19y.o, anemia, around 7 grand mal seizures in 2021, nonactive L. arm dialysis graft, R. groin dialysis port. History of Any Multi-Drug Resistant Organisms: None Reported Additional Past Surgical History / Comment(s): fistula placement , thyroid ectomy, kidney transplant Past Anesthesia/Blood Transfusion Reactions: Previous Problems w/ Anesthesia Additional Past Anesthesia/Blood Transfusion Reaction / Comment(s): Pt has his surgery done with local anesthetics d/t general anesthesia causing facial edema and difficulty waking. Blood transfusion had no issues Past Psychological History: No Psychological Hx Reported Smoking Status: Never smoker Past Alcohol Use History: None Reported Past Drug Use History: None Reported - Past Family History Mother Family Medical History: Fibromyalgia, Osteoarthritis (OA) Additional Family Medical History / Comment(s): Lupus Family Family Medical History: No Reported History Additional Family Medical History / Comment(s): ETOH abuse General Exam - General Exam Comments Initial Comments: General: Appears in mild distress. HEAD: Normal with no signs of head trauma. Negative Lima sign. Negative raccoon eyes. EYES: PERRLA, EOMI, conjunctiva normal, no discharge. Pupils 3 mm and equal bilaterally. ENT: Hearing grossly intact, normal oropharynx. RESPIRATORY: Clear breath sounds bilaterally. No wheezes, rales, or rhonchi. No hypoxia. C/V: Regular rate and rhythm. S1 and S2 auscultated, no edema, peripheral pulses 2+ and intact throughout ABD: Abd is soft, nontender, nondistended EXT: Decreased range of motion of the left knee. Unable to hold it in full extension. Tenderness to palpation diffusely. Also some tenderness to palpation over the lateral left hip. Patient has some tenderness to palpation of the posterior ribs. Swelling of the left knee with limited range of motion. SKIN: Patient has bruising over the posterior ribs, primarily on the left.Patient does have bruising over the posterior back as well as minimally over the anterior chest wall. NEURO: Alert and oriented x 4. GCS of 15. Limitations: no limitations Course Vital Signs 05/28/23 17:23 Temperature 98.1 F Pulse Rate 67 Respiratory 16 Rate Blood Pressure 112/70 O2 Sat by Pulse 99 Oximetry Medical Decision Making - Medical Decision Making Was pt. sent in by a medical professional or institution (, PA, PROPELLER ENGINEER, urgent care, hospital, or half-way...) When possible be specific @ -No Did you speak to anyone other than the patient for history (EMS, parent, family, police, friend...)? What history was obtained from this source @ -Patient's assists with patient's past medical history. Did you review nursing and triage notes (agree or disagree)? Why? @ -I reviewed and agree with nursing and triage notes Were old charts reviewed (outside hosp., previous admission, EMS record, old EKG, old radiological studies, urgent care reports/EKG's, half-way records)? Report findings @ -Old charts reviewed Differential Diagnosis (chest pain, altered mental status, abdominal pain women, abdominal pain men, vaginal bleeding, weakness, fever, dyspnea, syncope, headache, dizziness, GI bleed, back pain, seizure, CVA, palpatations, mental health, musculoskeletal)? @ -Differential Musculoskeletal Muscular strain, contusion, ligament sprain, fracture, arthritis, septic arthritis, bursitis, cellulitis, muscle spasm, nerve compression, DVT, arterial occlusion, herpes zoster, electrolyte abnormality, tumor.... This is not meant to be in all inclusive list EKG interpreted by me (3pts min.). @ -None done X-rays interpreted by me (1pt min.). @ -Left knee x-ray and left femur x-ray revealed no obvious acute fracture. There is a small left knee joint effusion. CT interpreted by me (1pt min.). @ -Patient's CT imaging negative for any obvious injury or fracture. Chest CT was read as showing a trace effusion around the lung which cannot definitively rule out hemothorax however patient has no rib fractures or no pulmonary contusions and fall was from standing so this is extremely unlikely. I did discuss this with the patient. They were in agreement this plan. Patient has contusions to the posterior lateral chest wall. CT of the pelvis and lower extremities reveals no obvious fracture or injury. Patient does have soft tissue swelling of the left knee, with likely concern for possible soft tissue injury to the knee.Patient also has a small contusion that appears at the iliac crest. CT thoracic spine negative for any obvious traumatic injury. U/S interpreted by me (1pt. min.). @ -None done What testing was considered but not performed or refused? (CT, X-rays, U/S, labs)? Why? @ -None What meds were considered but not given or refused? Why? @ -None Did you discuss the management of the patient with other professionals (professionals i.e. , PA, PROPELLER ENGINEER, lab, RT, psych nurse, social sciences department chair, assembler steam and gas turbine, teacher, chief resource officer, employment evaluator/case manager)? Give summary @ -No Was smoking cessation discussed for >3mins.? @ -No Was critical care preformed (if so, how long)? @ -No Were there social determinants of health that impacted care today? How? (Homelessness, low income, unemployed, alcoholism, drug addiction, transportation, low edu. Level, literacy, decrease access to med. care, long-term, rehab)? @ -No Was there de-escalation of care discussed even if they declined (Discuss DNR or withdrawal of care, Hospice)? DNR status @ -No What co-morbidities impacted this encounter? (DM, HTN, Smoking, COPD, CAD, Cancer, CVA, ARF, Chemo, Hep., AIDS, mental health diagnosis, sleep apnea, morbid obesity)? @ -None Was patient admitted / discharged? Hospital course, mention meds given and route, prescriptions, significant lab abnormalities, going to OR and other pertinent info. @ -Patient presents after a mechanical fall not on blood thinners. Does not meet trauma activation. I evaluated the patient when he was placed in a room. Has diffuse pain over the posterior ribs, as well as left hip and left knee. We will obtain CT imaging of these areas. CT brain was considered but based on [place] head CT rules he does not meet criteria. Patient will be symptomatically treated with oral analgesia medications. He was in agreement this plan. X-rays were already obtained and were unremarkable however due to the pain in his own I did recommend CT imaging which she did agree with. CT imaging negative for any obvious traumatic bony injury. Patient does have a contusion of the iliac crest, likely soft tissue injury to the patient's left knee, as well as a contusion to the lateral posterior chest wall. Discussed results with the patient. He was put in a knee immobilizer and he will be given crutches. Instructed to follow-up with orthopedics for evaluation of the knee. Strict return precautions discussed. He was in agreement this plan. I will provide the patient with a prescription for Robaxin. I instructed the patient to follow up with their PCP in the next 1-3 days. I provided contact information for follow up with orthopedics Dr. Meraz. I explained that the patient should return to the emergency department if they experience any worsening symptoms. Strict return precautions were discussed with the patient. The patient expressed understanding of these instructions. I answered all questions that the patient had. The patient was discharged home in fair condition with their prescriptions and follow up information. Patient has a walker at home. He will be given a knee immobilizer. Undiagnosed new problem with uncertain prognosis? @ -No Drug Therapy requiring intensive monitoring for toxicity (Heparin, Nitro, Insulin, Cardizem)? @ -No Were any procedures done? @ -No Diagnosis/symptom? @ -Fall, minor head trauma, left knee injury, contusions Acute, or Chronic, or Acute on Chronic? @ -Acute Uncomplicated (without systemic symptoms) or Complicated (systemic symptoms)? @ -Complicated Side effects of treatment? @ -None Exacerbation, Progression, or Severe Exacerbation] @ -No Poses a threat to life or bodily function? @ -Unlikely Disposition Clinical Impression: Minor head trauma, Fall, Left knee sprain, Contusion Disposition: HOME SELF-CARE Condition: Fair Instructions (If sedation given, give patient instructions): Knee Sprain (ED) Prescriptions: methocarbamoL [Robaxin-750] 1,500 mg PO TID PRN 7 Days #42 tab PRN Reason: Pain Is patient prescribed a controlled substance at d/c from ED?: No Referrals: None,Stated [Primary Care Provider] - 1-2 days Krystian Meraz DO [Doctor of Osteopathic Medicine] - 1-2 days Time of Disposition: 21:20
--- NOTE | 2023-05-28 20:26 | CT ---
EXAMINATION TYPE: CT chest wo con CT DLP: Combined DLP of 1906 mGycm, Automated exposure control for dose reduction was used. DATE OF EXAM: 05/28/2023 7:32 PM COMPARISON: None. . CLINICAL INDICATION:Male, 52 years old with history of fall, pain, bruising. posterior rib pain; PHH, Fall at home. Left knee swollen left femur swollen mid shaft to knee. unable to bear weight. ABC TECHNIQUE: Multiple axial images were obtained through the chest. Sagittal and coronal reformats were created for review. Contrast used: mL of (None if empty) Oral contrast used: (None if empty) FINDINGS: Examination limited by lack of IV contrast. LUNGS/ PLEURA: No evidence of consolidation or mass. Mild stranding in the lung bases suggesting subs egmental atelectasis or scarring. Tiny volume of slightly hyperdense fluid suggested at the right pos terior and lateral lung base. No appreciable pleural fluid on the left. There is no pneumothorax iden tified. AIRWAY: Central airways are patent. LOWER NECK: No significant findings. Unremarkable appearing thyroid. MEDIASTINUM: Nonenlarged mediastinal lymph nodes. No hematoma. No free gas.. HEART: Heart size upper normal.. Moderate to heavy coronary arterial calcifications, aortic valve and mitral valve calcifications. No appreciable pericardial effusion. VASCULATURE: Moderate atherosclerotic calcifications of the aorta and branches. Ascending aorta is 3 .2 CM, descending is 2.3 CM. Pulmonary trunk measures 2.8 CM. Pulmonary trunk is normal in size. SOFT TISSUES/LYMPH NODES: Mild/moderate bilateral gynecomastia changes. No enlarged axillary nodes. Subcutaneous fat stranding suggesting contusion in the right posterolateral chest wall near the level of the inferior scapula without evidence of scapular fracture. UPPER ABDOMEN: No clearly acute findings. Mildly thickened adrenals without evidence of mass. Gallbla dder is mildly prominent, possibly from fasting status, without calcified gallstones or pericholecyst ic fluid seen. There is moderate to heavy calcification of the upper abdominal aorta and branches. Mi ld to moderate narrowing of the proximal left renal artery, and apparent moderate to severe narrowing of the proximal right renal artery. Incompletely seen kidneys demonstrate innumerable cysts bilatera lly suggesting polycystic kidney disease. No hydronephrosis. MUSCULOSKELETAL: There are some limitations by motion. No definite acute displaced fractures. Mild/mo derate degenerative disc changes throughout the visualized spine. Mild degenerative changes of the ri ght more than left shoulder, with small geode suggested in the right humeral head. IMPRESSION: 1. Mild bibasilar subsegmental atelectasis. No appreciable lung contusion or pneumothorax. 2. Small amount of fluid at the right lung base, possible hemothorax. 3. Contusion in the right posterolateral chest wall. No acute associated fracture is seen.
--- NOTE | 2023-05-28 20:59 | CT ---
EXAMINATION TYPE: CT pelvis wo con, CT left lower extremity without contrast CT DLP: DLP of 1906 mGycm for the pelvis, 588 mGycm for the lower extremity, Automated exposure contr ol for dose reduction was used. DATE OF EXAM: 05/28/2023 7:32 PM COMPARISON: None. CLINICAL INDICATION:Male, 52 years old with history of fall, pain, bruising. tailbone, left hip; Fall at home. Left knee swollen left femur swollen mid shaft to knee. unable to bear weight. ABC TECHNIQUE: Noncontrast CT of the pelvis and left lower extremity was performed with multiplanar refor mats generated. 3-D reconstructions also generated on a remote workstation. Contrast used: mL of , (none if empty) Oral contrast used: without Oral Contrast (none if empty) FINDINGS: Exam is limited by motion. Pelvis: Osseous mineralization appears appropriate. No discrete acute fracture lucency or significant malalig nment in the pelvis. Degenerative changes of the pubic symphysis and bilateral hips. Some patchy scle rosis in the right femoral head may be sequela of AVN. Small sclerotic densities in the left iliac norma ne near the SI joint, and the right sacrum, could relate to bone islands. Mild degenerative changes of the lower lumbar spine and SI joints. No discrete acute fracture lucency of the sacrum. Mild deformity of the coccyx, of uncertain age. Right pelvic kidney, likely transplant. There is mild/moderate renal cortical thinning. Tiny cortical based hypodensity anteriorly and laterally, not fully characterized but may be a cyst. No hydronephr osis is seen. What seems to be the ureter courses inferiorly and to the left, apparently joining a tu bular structure extending from the left pelvis to the expected location of the bladder; this may repr esent a neobladder. There is mild surrounding fat stranding, of uncertain chronicity. Multiple colonic diverticula are seen in its distal aspect. No evidence of diverticulitis is observed . Moderate to heavy atherosclerotic calcifications of the aorta and branches. There is a right inguinal approach venous catheter which terminates in the inferior aspect of the IVC. No free fluid or free a ir in the visualized pelvis. Small to moderate sized fat-containing left inguinal hernia. Mild body w all edema, especially anteriorly. There is subcutaneous fat stranding posterolaterally on the left at the level of the iliac crest with the appearance of contusion. Possible minor contusion also at the level of the hips. No focal fluid collection is seen. There is a tiny fat-containing umbilical hernia. Left lower extremity; Motion limited exam. Mild degenerative change of the left hip without evidence of acute fracture or dislocation. The femur appears to be intact, though assessment is limited by motion, especially in its distal aspect. No acute fracture or dislocation seen in the knee. There is mild lateral patellar tilting. The joint spaces appear relatively preserved. No acute fracture or dislocation is seen. Tibia and fibula appear intact and normally aligned. Ankle joint is unremarkable. Mild degenerative changes of the proximal foot. Tiny plantar calcaneal s pur. No acute abnormality of the visualized portions of the foot. Possible minor contusion at the level of the left hip close to the greater trochanter. Mild/moderate soft tissue edema is seen throughout the leg. There is a small/moderate sized suprapatellar joint eff usion. Some surrounding soft tissue swelling is present, which could reflect superimposed acute injur y or edema. Moderate to heavy arteriovascular calcifications throughout. IMPRESSION: CT pelvis and left lower extremity: 1. No evidence of acute fracture or dislocation in the pelvis or left lower extremity. 2. Mild deformity of the coccyx, of uncertain age. 3. Subcutaneous fat stranding posterolaterally on the left at the level of the iliac crest with the appearance of contusion. Possible minor contusion also at the level of the hips. No focal fluid colle ction is seen. 4. Small to moderate left knee joint effusion. 5. Soft tissue edema in the pelvis and left lower extremity.
--- NOTE | 2023-05-28 21:11 | CT ---
EXAMINATION TYPE: CT thoracic spine wo con CT DLP: Combined DLP of 1906 mGycm, Automated exposure control for dose reduction was used. DATE OF EXAM: 05/28/2023 7:33 PM COMPARISON: None. CLINICAL INDICATION:Male, 52 years old with history of fall, pain, bruising; PHH, Fall at home. Left knee swollen left femur swollen mid shaft to knee. unable to bear weight. TECHNIQUE: Axial images of the thoracic spine were obtained without contrast. Coronal and sagittal re formats were performed. Findings: Osseous mineralization appears appropriate. There are moderate multilevel degenerative disc changes t hroughout the thoracic spine without evidence of acute fracture or significant malalignment. Vertebra l heights are generally preserved. Spinal canal and neural foramina appear patent, in the limits of n oncontrast CT. If there is persistent concern, MRI may be of benefit. No acute paraspinous soft tissue abnormality is seen. Please refer to separate CT chest for further d escription of findings. IMPRESSION: 1. No evidence of acute fracture or traumatic malalignment in the thoracic spine. 2. Multilevel thoracic spondylosis.
[2023-05-28 21:32] VITALS: BP 91/67; PULSE 99; RESP 18; TEMP 98.5
[2023-05-28] MEDS: LIDOCAINE 4% PATCH TOPICAL ONE (21:43)
== END 2023-05-28 21:54 | disposition home or self-care (01) ==
LOC: EC 17:00
DX: S09.90XA Unspecified injury of head, initial encounter (principal); S83.92XA Sprain of unspecified site of left knee, initial encounter; I48.91 Unspecified atrial fibrillation; K21.9 Gastro-esophageal reflux disease without esophagitis; E07.9 Disorder of thyroid, unspecified; Z79.52 Long term (current) use of systemic steroids; Z79.890 Hormone replacement therapy; Z79.899 Other long term (current) drug therapy; Z88.0 Allergy status to penicillin; Z88.1 Allergy status to other antibiotic agents; Z88.2 Allergy status to sulfonamides; Z88.5 Allergy status to narcotic agent; Z88.7 Allergy status to serum and vaccine; Z88.8 Allergy status to other drugs, medicaments and biological substances; Z91.041 Radiographic dye allergy status; Z99.2 Dependence on renal dialysis; W01.0XXA Fall on same level from slipping, tripping and stumbling without subsequent striking against object, initial encounter
CPT/HCPCS: 73552; 73562; 73700; 72192; 72128; 71250; 99285; L1830

== ENCOUNTER 2023-05-30 15:10 | Inpatient (IN) | payer MEDICARE ==
[2023-05-30 16:02] LABS: Anisocytosis Slight; Basophils % (A) 0 %; Eosinophils # (A) 0.1 k/uL (0-0.7); Eosinophils % (A) 1 %; Hypochromasia Moderate; Lymphocytes % (A) 17 %; MCH 31.6 pg (25.0-35.0); MCHC 31.7 g/dL (31.0-37.0); MCV 99.8 fL (80.0-100.0); Macrocytosis Slight; Monocytes # (A) 0.4 k/uL (0-1.0); Monocytes % (A) 7 %; Neutrophils # (A) 4.1 k/uL (1.3-7.7); Neutrophils % (A) 73 %; Platelet Count 144 k/uL (150-450); RBC 1.92 m/uL (4.30-5.90); RDW 16.4 % (11.5-15.5); WBC 5.6 k/uL (3.8-10.6)
--- NOTE | 2023-05-30 16:11 | ED ---
General Adult HPI - General Chief complaint: Recheck/Abnormal Lab/Rx Stated complaint: Revisit Back injury Time Seen by Provider: 05/30/23 15:21 Source: patient Mode of arrival: wheelchair Limitations: no limitations - History of Present Illness Initial comments: This patient is a 52-year-old man with history of renal failure on hemodialysis, who presents to have reevaluation after he had a fall. Patient was seen here earlier this week related to the fall. He states he had fallen and struck his back and then was having pains throughout the back and the left lower extremity. Patient notes that there was hematoma noted at the time he was here and he was instructed to return if it seemed to be expanding. Patient and his mother both state they have noted that there is blood at the left flank area, the right flank area that had not been noted previously. Patient's blood pressure was also lower than usual at home before they were going to do his scheduled home dialysis today so they present here. Patient does complain of aches to the back and to the left leg, which have been present since the fall and unchanged. No chest pain, dyspnea, palpitations, syncope. Onset/Timin -: days(s) Location: back, left, lower extremity Radiation: non-radiation Quality: aching Consistency: constant Improves with: none Worsens with: none Associated Symptoms: denies other symptoms - Related Data Home Medications Medication Instructions Recorded Confirmed Levothyroxine Sodium [Synthroid] 50 mcg PO DAILY 12/18/17 05/30/23 Montelukast [Singulair] 10 mg PO HS 12/18/17 05/30/23 predniSONE 10 mg PO DAILY 04/25/21 05/30/23 Atorvastatin [Lipitor] 20 mg PO DAILY 10/15/22 05/30/23 Midodrine HCl [ProAmatine] 10 mg PO QID 10/15/22 05/30/23 allopurinoL 100 mg PO DAILY 10/15/22 05/30/23 calcitrioL 0.25 mcg PO SUTUWETHSA 10/15/22 05/30/23 calcitrioL 0.5 mcg PO MOFR 10/15/22 05/30/23 Fludrocortisone [Florinef] 0.1 mg PO DAILY 04/25/23 05/30/23 Omeprazole [PriLOSEC] 20 mg PO DAILY 04/25/23 05/30/23 Previous Rx's Medication Instructions Recorded Acetaminophen Tab [Tylenol] 650 mg PO Q4HR PRN tab 04/28/23 Aspirin 81 mg PO DAILY #30 tab 04/28/23 Amiodarone [Cordarone] 200 mg PO TID #90 tab 05/15/23 Metoprolol Tartrate [Lopressor] 25 mg PO TID #90 tab 05/15/23 methocarbamoL [Robaxin-750] 1,500 mg PO TID PRN 7 Days #42 tab 05/28/23 Allergies Allergy/AdvReac Type Severity Reaction Status Date / Time adhesive tape Allergy Itching Verified 05/30/23 15:16 codeine Allergy Rash/Hives Verified 05/30/23 15:16 cyclobenzaprine Allergy Rash/Hives Verified 05/30/23 15:16 [From Flexeril] diphenhydramine Allergy Anaphylaxis Verified 05/30/23 15:16 [From Benadryl] hydromorphone [From Dilaudid] Allergy Rash/Hives Verified 05/30/23 15:16 hydroxyzine Allergy Anaphylaxis Verified 05/30/23 15:16 Iodinated Contrast Media Allergy Anaphylaxis Verified 05/30/23 15:16 [Iodinated Contrast- Oral and IV Dye] pantoprazole [From Protonix] Allergy Anaphylaxis Verified 05/30/23 15:16 Penicillins Allergy Rash/Hives Verified 05/30/23 15:16 potassium chloride Allergy Rash/Hives Verified 05/30/23 15:16 pregabalin [From Lyrica] Allergy Anaphylaxis Verified 05/30/23 15:16 sevelamer Allergy Rash/Hives Verified 05/30/23 15:16 warfarin [From Coumadin] Allergy Anaphylaxis Verified 05/30/23 15:16 acetaminophen [From Vicodin] AdvReac Nausea & Verified 05/30/23 15:16 Vomiting aripiprazole [From Abilify] AdvReac Abdominal Verified 05/30/23 15:16 Pain aztreonam AdvReac Unknown Verified 05/30/23 15:16 calcitriol AdvReac Unknown Verified 05/30/23 15:16 cefadroxil AdvReac Unknown Verified 05/30/23 15:16 enalapril AdvReac Unknown Verified 05/30/23 15:16 hydrocodone [From Vicodin] AdvReac Nausea & Verified 05/30/23 15:16 Vomiting Influenza Virus Vaccines AdvReac Unknown Verified 05/30/23 15:16 levofloxacin [From Levaquin] AdvReac Abdominal Verified 05/30/23 15:16 Pain meloxicam [From Mobic] AdvReac Abdominal Verified 05/30/23 15:16 Pain morphine AdvReac Unknown Verified 05/30/23 15:16 propoxyphene AdvReac Unknown Verified 05/30/23 15:16 Sulfa (Sulfonamide AdvReac Vomiting Verified 05/30/23 15:16 Antibiotics) tramadol AdvReac Unknown Verified 05/30/23 15:16 Review of Systems ROS Statement: Those systems with pertinent positive or pertinent negative responses have been documented in the HPI. ROS Other: All systems not noted in ROS Statement are negative. Constitutional: Reports: weakness. Denies: fever, chills Respiratory: Denies: cough, dyspnea, wheezes Cardiovascular: Denies: chest pain, orthopnea, edema, syncope Gastrointestinal: Denies: abdominal pain, vomiting, diarrhea Musculoskeletal: Reports: as per HPI, back pain, arthralgia Skin: Reports: change in color. Denies: rash Neurological: Denies: weakness, numbness, paresthesias Hematological/Lymphatic: Denies: easy bleeding Past Medical History Past Medical History: Atrial Fibrillation, Dialysis, GERD/Reflux, Renal Disease, Seizure Disorder, Thyroid Disorder Additional Past Medical History / Comment(s): hemodialysis M/W,F,/S at home, diverticulitis,blind, shingles in February, recent falls, kidney transplant in 1998, CAPD when pt was 19y.o, anemia, around 7 grand mal seizures in 2021, nonactive L. arm dialysis graft, R. groin dialysis port. History of Any Multi-Drug Resistant Organisms: None Reported Additional Past Surgical History / Comment(s): fistula placement , thyroidectomy, kidney transplant Past Anesthesia/Blood Transfusion Reactions: Previous Problems w/ Anesthesia Additional Past Anesthesia/Blood Transfusion Reaction / Comment(s): Pt has his surgery done with local anesthetics d/t general anesthesia causing facial edema and difficulty waking. Blood transfusion had no issues Past Psychological History: No Psychological Hx Reported Smoking Status: Never smoker Past Alcohol Use History: None Reported Past Drug Use History: None Reported - Past Family History Mother Family Medical History: Fibromyalgia, Osteoarthritis (OA) Additional Family Medical History / Comment(s): Lupus Family Family Medical History: No Reported History Additional Family Medical History / Comment(s): ETOH abuse General Exam Limitations: no limitations General appearance: alert, in no apparent distress Head exam: Present: atraumatic, normocephalic Eye exam: Present: normal appearance. Absent: scleral icterus, conjunctival injection Neck exam: Present: normal inspection Respiratory exam: Present: normal lung sounds bilaterally. Absent: respiratory distress, wheezes, rales, rhonchi, stridor, accessory muscle use Cardiovascular Exam: Present: regular rate, normal rhythm, systolic murmur. Absent: diastolic murmur, rubs, gallop GI/Abdominal exam: Present: soft. Absent: distended, tenderness, guarding, r ebound, rigid, mass Extremities exam: Present: normal inspection, normal capillary refill. Absent: pedal edema, calf tenderness Back exam: Present: normal inspection. Absent: CVA tenderness (R), CVA tenderness (L) Neurological exam: Present: alert Skin exam: Present: warm, dry, intact, other (Patient does have areas of ecchymosis to the mid back to the bilateral flanks.) Course Vital Signs 05/30/23 05/30/23 05/30/23 15:12 16:03 17:00 Temperature 98.3 F Pulse Rate 74 68 Pulse Rate [ Agronomy Teacher ] Respiratory 18 18 Rate Blood Pressure 80/52 80/43 78/33 O2 Sat by Pulse 100 96 Oximetry 05/30/23 05/30/23 05/30/23 17:53 19:03 19:13 Temperature 97.8 F 98.0 F Pulse Rate 74 106 H 109 H Pulse Rate [ Agronomy Teacher ] Respiratory 16 22 20 Rate Blood Pressure 89/46 85/50 97/41 O2 Sat by Pulse 97 96 96 Oximetry 05/30/23 05/30/23 05/30/23 19:33 19:45 20:08 Temperature 98.1 F Pulse Rate 77 74 Pulse Rate [ Agronomy Teacher ] Respiratory 17 16 Rate Blood Pressure 88/41 68/46 88/45 O2 Sat by Pulse 96 Oximetry 05/30/23 05/30/23 05/30/23 20:26 20:29 21:51 Temperature 97.7 F 97.7 F Pulse Rate 77 73 108 H Pulse Rate [ Agronomy Teacher ] Respiratory 16 16 19 Rate Blood Pressure 96/30 73/37 86/53 O2 Sat by Pulse 95 95 98 Oximetry 05/30/23 05/30/23 22:26 22:50 Temperature 97.6 F Pulse Rate 74 Pulse Rate [ 80 Agronomy Teacher ] Respiratory 16 Rate Blood Pressure 85/29 O2 Sat by Pulse 100 Oximetry EKG Findings - EKG Results: EKG: interpreted by ERMD, sinus rhythm (Rate 66 bpm), normal axis - Blocks, Waucoma, Hypertrophy, ST Abn: AV and intraventricular conduction: right bundle branch block (fixed/intermittent, complete/incomplete) (Incomplete) Repolarization changes or abnormalities: Q-T interval prolongation Medical Decision Making - Medical Decision Making Patient is a 52-year-old man here to have reevaluation after he noticed that hematomas had spread from the area of his initial injury his back to his flanks. The patient's labs do reveal worsening of anemia and I discussed case with nephrology. The do recommend admitting the patient, transfusing, and dose of DDAVP for platelet function. Was pt. sent in by a medical professional or institution (, PA, INDUSTRIAL RECRUITER, urgent care, hospital, or residential...) When possible be specific @ -[No] Did you speak to anyone other than the patient for history (EMS, parent, family, police, friend...)? What history was obtained from this source @ -[Patient's family member did contribute to history Did you review nursing and triage notes (agree or disagree)? Why? @ -[I reviewed and agree with nursing and triage notes] Were old charts reviewed (outside hosp., previous admission, EMS record, old EKG, old radiological studies, urgent care reports/EKG's, residential records)? Report findings @ -[Previous visit record reviewed which reveals patient had extensive workup following his trauma with no evidence of bony injury Differential Diagnosis (chest pain, altered mental status, abdominal pain women, abdominal pain men, vaginal bleeding, weakness, fever, dyspnea, syncope, headache, dizziness, GI bleed, back pain, seizure, CVA, palpatations, mental health, musculoskeletal)? @ -[Differential Back Pain: Strain, zoster, cauda equina syndrome, epidural abscess, vertebral osteomyelitis, discitis, fracture, subluxation, disc herniation, DJD, spinal stenosis, dissection, AAA, pancreatitis, peptic ulcer disease, pyelonephritis, kidney stone, this is not meant to be an all-inclusive list. EKG interpreted by me (3pts min.). @ -[I interpreted as above] X-rays interpreted by me (1pt min.). @ -[None done] CT interpreted by me (1pt min.). @ -[None done] U/S interpreted by me (1pt. min.). @ -[None done] What testing was considered but not performed or refused? (CT, X-rays, U/S, labs)? Why? @ -[CT scan is considered, but the patient did have extensive radiologic studies on last visit and will attempt to limit radiation exposure What meds were considered but not given or refused? Why? @ -[None] Did you discuss the management of the patient with other professionals (professionals i.e. , PA, INDUSTRIAL RECRUITER, lab, RT, psych nurse, psychiatric social worker, large engine assembler, teacher, weapons officer naval activity, mattress spring encaser)? Give summary @ -[See above Was smoking cessation discussed for >3mins.? @ -[No] Was critical care preformed (if so, how long)? @ -[, 40 minutes Were there social determinants of health that impacted care today? How? (Homelessness, low income, unemployed, alcoholism, drug addiction, transportatio n, low edu. Level, literacy, decrease access to med. care, [place] [facility], rehab)? @ -[No] Was there de-escalation of care discussed even if they declined (Discuss DNR or withdrawal of care, Hospice)? DNR status @ -[No] What co-morbidities impacted this encounter? (DM, HTN, Smoking, COPD, CAD, Cancer, CVA, ARF, Chemo, Hep., AIDS, mental health diagnosis, sleep apnea, morbid obesity)? @ -[Chronic renal failure, atrial fibrillation on anticoagulation Was patient admitted / discharged? Hospital course, mention meds given and route, prescriptions, significant lab abnormalities, going to OR and other pert inent info. @ -[The patient is a 52-year-old man here with what appears to be worsening of the hematomas related to a previous fall. The patient found to be moderately anemic and will be admitted with further consultations and for transfusion which is started in the emergency department Undiagnosed new problem with uncertain prognosis? @ -[No] Drug Therapy requiring intensive monitoring for toxicity (Heparin, Nitro, Insulin, Cardizem)? @ -[No] Were any procedures done? @ -[No] Diagnosis/symptom? @ -[Acute traumatic hematomas of back and knee. Acute on chronic anemia Chronic renal failure Atrial fibrillation Elevated troponin Acute, or Chronic, or Acute on Chronic? @ -[As above Uncomplicated (without systemic symptoms) or Complicated (systemic symptoms)? @ -[Complicated Side effects of treatment? @ -[No] Exacerbation, Progression, or Severe Exacerbation? @ -[No] Poses a threat to life or bodily function? How? (Chest pain, [place], AL, pneumonia, PE, COPD, DKA, ARF, appy, cholecystitis, CVA, Diverticulitis, Homicidal, Suicidal, threat to staff... and all critical care pts) @ -[Yes, patient at risk of further complication due to the anemia and its relation to his chronic comorbidities - Lab Data Result diagrams: 06/04/23 03:51 06/04/23 03:51 Lab Results 05/30/23 05/30/23 05/30/23 Range/Units 15:54 15:54 15:54 WBC 5.6 (3.8-10.6) k/uL RBC 1.92 L (4.30-5.90) m/uL Hgb 6.1 L* D (13.0-17.5) gm/dL Hct 19.2 L* (39.0-53.0) % MCV 99.8 (80.0-100.0) fL MCH 31.6 (25.0-35.0) pg MCHC 31.7 (31.0-37.0) g/dL RDW 16.4 H (11.5-15.5) % Plt Count 144 L (150-450) k/uL MPV 8.0 Neutrophils % 73 % Lymphocytes % 17 % Monocytes % 7 % Eosinophils % 1 % Basophils % 0 % Neutrophils # 4.1 (1.3-7.7) k/uL Lymphocytes # 1.0 (1.0-4.8) k/uL Monocytes # 0.4 (0-1.0) k/uL Eosinophils # 0.1 (0-0.7) k/uL Basophils # 0.0 (0-0.2) k/uL Hypochromasia Moderate Anisocytosis Slight Macrocytosis Slight PT 10.6 (10.0-12.5) sec INR 1.0 (<1.2) APTT 23.8 (22.0-30.0) sec Sodium 139 (137-145) mmol/L Potassium 3.9 (3.5-5.1) mmol/L Chloride 100 (98-107) mmol/L Carbon Dioxide 24 (22-30) mmol/L Anion Gap 15 mmol/L BUN 55 H (9-20) mg/dL Creatinine 9.01 H* (0.66-1.25) mg/dL Est GFR (CKD-EPI)AfAm 7 (>60 ml/min/1.73 sqM) Est GFR (CKD-EPI)NonAf 6 (>60 ml/min/1.73 sqM) Glucose 95 (74-99) mg/dL Calcium 8.8 (8.4-10.2) mg/dL Total Bilirubin 0.7 (0.2-1.3) mg/dL AST 19 (17-59) U/L ALT 14 (4-49) U/L Alkaline Phosphatase 57 (38-126) U/L Total Protein 5.3 L (6.3-8.2) g/dL Albumin 3.3 L (3.5-5.0) g/dL Blood Type Blood Type Recheck Bld Type Recheck Status Antibody Screen Crossmatch Spec Expiration Date 05/30/23 Range/Units 17:13 WBC (3.8-10.6) k/uL RBC (4.30-5.90) m/uL Hgb (13.0-17.5) gm/dL Hct (39.0-53.0) % MCV (80.0-100.0) fL MCH (25.0-35.0) pg MCHC (31.0-37.0) g/dL RDW (11.5-15.5) % Plt Count (150-450) k/uL MPV Neutrophils % % Lymphocytes % % Monocytes % % Eosinophils % % Basophils % % Neutrophils # (1.3-7.7) k/uL Lymphocytes # (1.0-4.8) k/uL Monocytes # (0-1.0) k/uL Eosinophils # (0-0.7) k/uL Basophils # (0-0.2) k/uL Hypochromasia Anisocytosis Macrocytosis PT (10.0-12.5) sec INR (<1.2) APTT (22.0-30.0) sec Sodium (137-145) mmol/L Potassium (3.5-5.1) mmol/L Chloride (98-107) mmol/L Carbon Dioxide (22-30) mmol/L Anion Gap mmol/L BUN (9-20) mg/dL Creatinine (0.66-1.25) mg/dL Est GFR (CKD-EPI)AfAm (>60 ml/min/1.73 sqM) Est GFR (CKD-EPI)NonAf (>60 ml/min/1.73 sqM) Glucose (74-99) mg/dL Calcium (8.4-10.2) mg/dL Total Bilirubin (0.2-1.3) mg/dL AST (17-59) U/L ALT (4-49) U/L Alkaline Phosphatase (38-126) U/L Total Protein (6.3-8.2) g/dL Albumin (3.5-5.0) g/dL Blood Type A Positive Blood Type Recheck A Pos Bld Type Recheck Status No Antibody Screen NEGATIVE Crossmatch See Detail Spec Expiration Date 06/02/20232312 Critical Care Time Critical Care Time: Yes (40 minutes) Disposition Clinical Impression: Anemia, Traumatic hematoma of lower back, Chronic renal failure Disposition: ADMITTED IP TO THIS [facility] Condition: Fair Is patient prescribed a controlled substance at d/c from ED?: No
[2023-05-30 16:12] LABS: Partial Thromboplastin Time 23.8 sec (22.0-30.0); Prothrombin Time 10.6 sec (10.0-12.5)
[2023-05-30 16:14] LABS: ALT 14 U/L (4-49); AST 19 U/L (17-59); African American GFR (CKD) 7 (>60 ml/min/1.73 sqM); Albumin 3.3 g/dL (3.5-5.0); Alkaline Phosphatase 57 U/L (38-126); Anion Gap 15 mmol/L; Blood Urea Nitrogen 55 mg/dL (9-20); Calcium 8.8 mg/dL (8.4-10.2); Carbon Dioxide 24 mmol/L (22-30); Chloride 100 mmol/L (98-107); Glucose 95 mg/dL (74-99); Non-African American GFR(CKD) 6 (>60 ml/min/1.73 sqM); Potassium 3.9 mmol/L (3.5-5.1); Sodium 139 mmol/L (137-145); Total Bilirubin 0.7 mg/dL (0.2-1.3); Total Protein 5.3 g/dL (6.3-8.2)
[2023-05-30] MEDS: MORPHINE SULFATE 4 MG/ML SYRINGE IV STA (16:29)
[2023-05-30] MEDS: CALCIUM GLUCONATE IN NACL 1 GM in SALINE 1 100ML.BAG IVPB ONE (16:48)
[2023-05-30] MEDS: DEXTROSE 50% SYRINGE 50 ML IVP STA (16:48)
[2023-05-30] MEDS: SODIUM BICARB 8.4% 50 ML SYR (1 MEQ/ML) IV STA (16:49)
[2023-05-30] MEDS: INSULIN REGULAR 100 UNIT/ML VIAL (IV) IV STA (16:49)
[2023-05-30 16:52] LABS: HCT 19.2 % (39.0-53.0); HGB 6.1 gm/dL (13.0-17.5)
[2023-05-30] MEDS: MIDODRINE 5 MG TAB PO STA (17:19)
[2023-05-30] MEDS: DESMOPRESSIN ACETATE 24 MCG in SODIUM CHLORIDE 0.9% 50 ML IVPB STA (17:51)
[2023-05-30] MEDS ORDERED: NALOXONE 0.4 MG/ML 1 ML VIAL IV PRN (18:34)
[2023-05-30] MEDS ORDERED: ONDANSETRON 4 MG/2 ML VIAL IVP PRN (18:34)
[2023-05-30] MEDS: CYCLOBENZAPRINE 5 MG TAB PO STA (18:59)
[2023-05-30] MEDS: SODIUM CHLORIDE 0.9% 1,000 ML IV ONE (21:18)
[2023-05-30 22:57] LABS: Glucose,Whole Blood 89 mg/dL (70-110)
[2023-05-30] MEDS: ACETAMINOPHEN TAB 325 MG TAB PO PRN (23:14)
[2023-05-30 23:19] LABS: Basophils % (A) 0 %; Eosinophils % (A) 1 %; HCT 21.4 % (39.0-53.0); Hypochromasia Moderate; Lymphocytes # (A) 1.1 k/uL (1.0-4.8); Lymphocytes % (A) 24 %; MCH 31.4 pg (25.0-35.0); MCV 101.1 fL (80.0-100.0); Macrocytosis Slight; Mean Platelet Volume 7.4; Monocytes # (A) 0.3 k/uL (0-1.0); Monocytes % (A) 6 %; Neutrophils # (A) 3.1 k/uL (1.3-7.7); Neutrophils % (A) 67 %; Platelet Count 125 k/uL (150-450); RBC 2.11 m/uL (4.30-5.90); RDW 15.8 % (11.5-15.5); WBC 4.6 k/uL (3.8-10.6)
[2023-05-30 23:29] LABS: HGB 6.6 gm/dL (13.0-17.5); INR 0.9 (<1.2); Partial Thromboplastin Time 24.4 sec (22.0-30.0); Prothrombin Time 10.4 sec (10.0-12.5)
[2023-05-30 23:34] LABS: African American GFR (CKD) 7 (>60 ml/min/1.73 sqM); Anion Gap 15 mmol/L; Blood Urea Nitrogen 57 mg/dL (9-20); Calcium 8.6 mg/dL (8.4-10.2); Carbon Dioxide 21 mmol/L (22-30); Chloride 102 mmol/L (98-107); Glucose 84 mg/dL (74-99); Magnesium 1.8 mg/dL (1.6-2.3); Non-African American GFR(CKD) 6 (>60 ml/min/1.73 sqM); Potassium 4.3 mmol/L (3.5-5.1); Sodium 138 mmol/L (137-145)
[2023-05-30] MEDS: MORPHINE SULFATE 4 MG/ML SYRINGE IV PRN (23:50)
[2023-05-30] MEDS: AMIODARONE 200 MG TAB PO STA (23:51)
[2023-05-30] MEDS: METOPROLOL TARTRATE 50 MG TAB PO STA (23:51)
[2023-05-30] MEDS: SIMETHICONE 80 MG CHEWABLE PO SCH (23:53)
[2023-05-30] MEDS: FAMOTIDINE 20 MG/2 ML VIAL IV SCH (23:53)
[2023-05-30] MEDS: MIDODRINE 5 MG TAB PO SCH (23:53)
[2023-05-31] MEDS: NOREPINEPHRINE 4 MG in SODIUM CHLORIDE 0.9% 250 ML IV SCH (01:06)
[2023-05-31 05:03] LABS: Anisocytosis Slight; Basophils % (A) 0 %; Eosinophils # (A) 0.1 k/uL (0-0.7); Eosinophils % (A) 1 %; Hypochromasia Moderate; Lymphocytes # (A) 0.9 k/uL (1.0-4.8); Lymphocytes % (A) 22 %; MCH 32.8 pg (25.0-35.0); MCV 99.3 fL (80.0-100.0); Macrocytosis Slight; Monocytes # (A) 0.3 k/uL (0-1.0); Monocytes % (A) 7 %; Neutrophils # (A) 2.9 k/uL (1.3-7.7); Neutrophils % (A) 68 %; Platelet Count 103 k/uL (150-450); Poikilocytosis Slight; RBC 1.82 m/uL (4.30-5.90); RDW 16.2 % (11.5-15.5); WBC 4.3 k/uL (3.8-10.6)
[2023-05-31 05:14] LABS: ALT 11 U/L (4-49); AST 18 U/L (17-59); African American GFR (CKD) 6 (>60 ml/min/1.73 sqM); Albumin 2.9 g/dL (3.5-5.0); Alkaline Phosphatase 54 U/L (38-126); Anion Gap 12 mmol/L; Blood Urea Nitrogen 58 mg/dL (9-20); Calcium 8.2 mg/dL (8.4-10.2); Carbon Dioxide 24 mmol/L (22-30); Chloride 102 mmol/L (98-107); Glucose 88 mg/dL (74-99); Magnesium 1.8 mg/dL (1.6-2.3); Non-African American GFR(CKD) 6 (>60 ml/min/1.73 sqM); Phosphorus 6.5 mg/dL (2.5-4.5); Potassium 4.3 mmol/L (3.5-5.1); Sodium 138 mmol/L (137-145); Total Bilirubin 0.9 mg/dL (0.2-1.3); Total Protein 4.9 g/dL (6.3-8.2)
[2023-05-31 05:17] LABS: HCT 18.1 % (39.0-53.0)
--- NOTE | 2023-05-31 08:59 | P.CRDCN ---
History of Present Illness Consult date: 05/31/23 History of present illness: History of Present Illness: The patient is a 52-year-old male with known history of end-stage renal disease, on hemodialysis, status post renal transplant in the past, paroxysmal atrial fibrillation followed by Dr. Serrano who presented because of low hemoglobin. He fell about 3 weeks ago and injured his left knee and subsequently few days ago trying to go up the stairs his knee gave up and fell backward. He had significant ecchymosis on his back and his knee. He has been having chest discomfort for the last 6 months not activity related. His discomfort is more often after he eats. He has mild dyspnea but no syncope. He denies any palpitations. He has not been anticoagulated. He had prior admission to the hospital with elevation of the troponin that was felt to be related to his chronic kidney disease. The patient has prior admission for anemia. He had an echocardiogram obtained in April that showed a preserved systolic function with a mean gradient of 31 mmHg across the aortic valve with mild aortic and tricuspid regurgitation and mild to moderate mitral regurgitation. He had an MPI in August 2021 that showed a preserved systolic function. He did not feel the palpitation on presentation but was in atrial fibrillation, he is back in sinus mechanism at this time. He has no prior history of smoking or diabetes. His activity is limited but stable. Medications: Prednisone 10 mg daily, calcium, Prilosec, midodrine, metoprolol 25 mg 3 times a day, amiodarone 200 mg 3 times a day, Singulair Review of Systems: Respiratory: No recent wheezing or cough GI: No nausea or vomiting . No history of peptic ulcer disease. No recent GI bleed. : He is end-stage renal disease with no urine output Nervous System: No stroke, he had 1 episode of seizure during dialysis seizure. Physical Examination: 52-year-old male, alert oriented no apparent distress,Blood pressure 114/50, Heart rate 68 Head: Normocephalic. Eyes: Sclerae nonicteric. Neck: Good carotid upstroke, no bruit, no jugular venous distention. Lungs: Clear to auscultation. Heart: Regular rate and rhythm, S1-S2, no S3, no rub. Systolic ejection murmur 3/6 mid peaking. Abdomen: Soft nontender, positive bowel sounds no organomegaly. Obese Extremities: +1-2 edema on the left side, intact distal pulses. Multiple ecchymotic areas on the back, the flank, the left knee and the left foot Labs: Hemoglobin on presentation 6.1, potassium 3.9, BUN/creatinine 55 and 9.01. Troponin 0.052. EKG: Initially atrial fibrillation with nonspecific ST-T wave changes, back in sinus mechanism with no acute ST segment changes Impression: 1. Severe anemia, patient has prior history of anemia but not as severe. Some of the anemia could be related to the diffuse ecchymosis 2. Paroxysmal atrial fibrillation 3. Troponin elevation secondary to the renal failure, no evidence of acute coronary syndrome or myocardial infarction 4. End-stage renal disease on hemodialysis status post failed transplant 5. Moderate aortic stenosis 6. Chest discomfort that appears to be noncardiac, chronic 7. Diffuse ecchymosis status post falls with no syncope Plan: 1. Restart amiodarone and metoprolol 2. Transfuse as needed 3. The patient will need to be evaluated regarding his aortic valve as outpatient 4. Consider Watchman procedure as an outpatient because of the recurrent atrial fibrillation and the contraindications to anticoagulation 5. Depending on his progress further recommendations will be made, thank you for this consult we will follow with you. Past Medical History Past Medical History: Atrial Fibrillation, Dialysis, GERD/Reflux, Renal Disease, Seizure Disorder, Thyroid Disorder Additional Past Medical History / Comment(s): hemodialysis M/W,F,/S at home, diverticulitis,blind, shingles in February, recent falls, kidney transplant in 1998, CAPD when pt was 19y.o, anemia, around 7 grand mal seizures in 2021, nonactive L. arm dialysis graft, R. groin dialysis port. History of Any Multi-Drug Resistant Organisms: None Reported Additional Past Surgical History / Comment(s): fistula placement , thyroidectomy, kidney transplant Past Anesthesia/Blood Transfusion Reactions: Previous Problems w/ Anesthesia Additional Past Anesthesia/Blood Transfusion Reaction / Comment(s): Pt has his surgery done with local anesthetics d/t general anesthesia causing facial edema and difficulty waking. Blood transfusion had no issues Past Psychological History: No Psychological Hx Reported Smoking Status: Never smoker Past Alcohol Use History: None Reported Past Drug Use History: None Reported - Past Family History Mother Family Medical History: Fibromyalgia, Osteoarthritis (OA) Additional Family Medical History / Comment(s): Lupus Family Family Medical History: No Reported History Additional Family Medical History / Comment(s): ETOH abuse Medications and Allergies Home Medications Medication Instructions Recorded Confirmed Type Levothyroxine Sodium [Synthroid] 50 mcg PO DAILY 12/18/17 05/30/23 History Montelukast [Singulair] 10 mg PO HS 12/18/17 05/30/23 History predniSONE 10 mg PO DAILY 04/25/21 05/30/23 History Atorvastatin [Lipitor] 20 mg PO DAILY 10/15/22 05/30/23 History Midodrine HCl [ProAmatine] 10 mg PO QID 10/15/22 05/30/23 History allopurinoL 100 mg PO DAILY 10/15/22 05/30/23 History calcitrioL 0.25 mcg PO SUTUWETHSA 10/15/22 05/30/23 History calcitrioL 0.5 mcg PO MOFR 10/15/22 05/30/23 History Fludrocortisone [Florinef] 0.1 mg PO DAILY 04/25/23 05/30/23 History Omeprazole [PriLOSEC] 20 mg PO DAILY 04/25/23 05/30/23 History Acetaminophen Tab [Tylenol] 650 mg PO Q4HR PRN tab 04/28/23 05/30/23 Rx Aspirin 81 mg PO DAILY #30 tab 04/28/23 05/30/23 Rx Amiodarone [Cordarone] 200 mg PO TID #90 tab 05/15/23 05/30/23 Rx Metoprolol Tartrate [Lopressor] 25 mg PO TID #90 tab 05/15/23 05/30/23 Rx methocarbamoL [Robaxin-750] 1,500 mg PO TID PRN 7 Days #42 tab 05/28/23 05/30/23 Rx Allergies Allergy/AdvReac Type Severity Reaction Status Date / Time adhesive tape Allergy Itching Verified 05/30/23 15:16 codeine Allergy Rash/Hives Verified 05/30/23 15:16 cyclobenzaprine Allergy Rash/Hives Verified 05/30/23 15:16 [From Flexeril] diphenhydramine Allergy Anaphylaxis Verified 05/30/23 15:16 [From Benadryl] hydromorphone [From Dilaudid] Allergy Rash/Hives Verified 05/30/23 15:16 hydroxyzine Allergy Anaphylaxis Verified 05/30/23 15:16 Iodinated Contrast Media Allergy Anaphylaxis Verified 05/30/23 15:16 [Iodinated Contrast- Oral and IV Dye] pantoprazole [From Protonix] Allergy Anaphylaxis Verified 05/30/23 15:16 Penicillins Allergy Rash/Hives Verified 05/30/23 15:16 potassium chloride Allergy Rash/Hives Verified 05/30/23 15:16 pregabalin [From Lyrica] Allergy Anaphylaxis Verified 05/30/23 15:16 sevelamer Allergy Rash/Hives Verified 05/30/23 15:16 warfarin [From Coumadin] Allergy Anaphylaxis Verified 05/30/23 15:16 acetaminophen [From Vicodin] AdvReac Nausea & Verified 05/30/23 15:16 Vomiting aripiprazole [From Abilify] AdvReac Abdominal Verified 05/30/23 15:16 Pain aztreonam AdvReac Unknown Verified 05/30/23 15:16 calcitriol AdvReac Unknown Verified 05/30/23 15:16 cefadroxil AdvReac Unknown Verified 05/30/23 15:16 enalapril AdvReac Unknown Verified 05/30/23 15:16 hydrocodone [From Vicodin] AdvReac Nausea & Verified 05/30/23 15:16 Vomiting Influenza Virus Vaccines AdvReac Unknown Verified 05/30/23 15:16 levofloxacin [From Levaquin] AdvReac Abdominal Verified 05/30/23 15:16 Pain meloxicam [From Mobic] AdvReac Abdominal Verified 05/30/23 15:16 Pain morphine AdvReac Unknown Verified 05/30/23 15:16 propoxyphene AdvReac Unknown Verified 05/30/23 15:16 Sulfa (Sulfonamide AdvReac Vomiting Verified 05/30/23 15:16 Antibiotics) tramadol AdvReac Unknown Verified 05/30/23 15:16 Physical Exam Vitals: Vital Signs Temp Pulse Pulse Resp BP Pulse Ox 05/31/23 08:45 67 25 H 114/54 100 05/31/23 08:30 77 18 108/59 100 05/31/23 08:15 70 14 104/58 99 05/31/23 08:00 97.9 F 70 20 101/52 100 05/31/23 07:45 72 22 99/57 97 05/31/23 07:30 70 110/57 97 05/31/23 07:15 71 17 125/68 98 05/31/23 07:00 100 12 105/61 97 05/31/23 06:45 67 107/62 94 L 05/31/23 06:30 97 12 111/59 93 L 05/31/23 06:15 99 92/51 95 05/31/23 06:00 64 19 89/50 97 05/31/23 05:45 64 88/53 96 05/31/23 05:30 63 85/52 97 05/31/23 05:15 65 20 92/54 98 05/31/23 05:00 68 99/56 97 05/31/23 04:45 67 96/49 99 05/31/23 04:30 66 94/50 97 05/31/23 04:15 66 91/51 94 L 05/31/23 04:00 97.9 F 67 18 89/52 98 05/31/23 03:45 68 90/45 98 05/31/23 03:30 68 90/51 96 05/31/23 03:15 69 17 84/52 92 L 05/31/23 03:00 70 15 104/53 82 L 05/31/23 02:45 75 95/48 96 05/31/23 02:30 72 86/55 88 L 05/31/23 02:15 72 12 100/48 96 05/31/23 02:00 70 18 90/44 98 05/31/23 01:45 70 18 84/45 98 05/31/23 01:30 71 72/37 98 05/31/23 01:15 70 15 72/32 97 05/31/23 01:00 72 15 67/39 97 05/31/23 00:45 78 20 79/41 97 05/31/23 00:30 81 85/46 96 05/31/23 00:15 80 88/56 96 05/31/23 00:00 97.6 F 117 H 117 H 18 109/61 94 L 05/30/23 23:45 117 H 16 95/61 97 05/30/23 23:30 101/50 98 05/30/23 23:15 80 14 98/49 96 05/30/23 23:00 97.9 F 81 15 96/40 98 05/30/23 22:50 80 03/15/24 22:26 97.6 F 74 16 85/29 100 05/30/23 21:51 108 H 19 86/53 98 05/30/23 20:29 97.7 F 73 16 73/37 95 05/30/23 20:26 97.7 F 77 16 96/30 95 05/30/23 20:08 88/45 05/30/23 19:45 74 16 68/46 05/30/23 19:33 98.1 F 77 17 88/41 96 05/30/23 19:13 98.0 F 109 H 20 97/41 96 05/30/23 19:03 97.8 F 106 H 22 85/50 96 05/30/23 17:53 74 16 89/46 97 05/30/23 17:00 68 18 78/33 96 05/30/23 16:03 80/43 05/30/23 15:12 98.3 F 74 18 80/52 100 Intake and Output 05/30/23 05/31/23 05/31/23 22:59 06:59 14:59 Intake Total 310 76.066 Output Total 0 0 Balance 310 76.066 0 Intake: Intake, IV Titration 6.066 Amount Norepinephrine 4 mg In 6.066 Sodium Chloride 0.9% 250 ml @ 0.03 MCG/KG/MIN 9. 332 mls/hr IV .Q24H [facility] Rx#:[id number] Oral 70 Blood Product 310 Rc As-1 Unit 310 [id number] Output: Urine 0 0 Other: Weight 90 kg 90 kg Results 05/31/23 04:44 05/31/23 04:44 Cardiac Enzymes 05/30/23 05/30/23 05/31/23 Range/Units 15:54 20:05 04:44 AST 19 18 (17-59) U/L Troponin I 0.052 H* (0.000-0.034) ng/mL Coagulation 05/30/23 05/30/23 Range/Units 15:54 22:58 PT 10.6 10.4 (10.0-12.5) sec APTT 23.8 24.4 (22.0-30.0) sec CBC 05/30/23 05/30/23 05/31/23 Range/Units 15:54 22:58 04:44 WBC 5.6 4.6 4.3 (3.8-10.6) k/uL RBC 1.92 L 2.11 L 1.82 L (4.30-5.90) m/uL Hgb 6.1 L* D 6.6 L* 6.0 L* (13.0-17.5) gm/dL Hct 19.2 L* 21.4 L 18.1 L* (39.0-53.0) % Plt Count 144 L 125 L 103 L (150-450) k/uL Comprehensive Metabolic Panel 05/30/23 05/30/23 05/31/23 Range/Units 15:54 22:58 04:44 Sodium 139 138 138 (137-145) mmol/L Potassium 3.9 4.3 4.3 (3.5-5.1) mmol/L Chloride 100 102 102 (98-107) mmol/L Carbon Dioxide 24 21 L 24 (22-30) mmol/L BUN 55 H 57 H 58 H (9-20) mg/dL Creatinine 9.01 H* 9.16 H* 9.77 H* (0.66-1.25) mg/dL Glucose 95 84 88 (74-99) mg/dL Calcium 8.8 8.6 8.2 L (8.4-10.2) mg/dL AST 19 18 (17-59) U/L ALT 14 11 (4-49) U/L Alkaline Phosphatase 57 54 (38-126) U/L Total Protein 5.3 L 4.9 L (6.3-8.2) g/dL Albumin 3.3 L 2.9 L (3.5-5.0) g/dL Current Medications Generic Name Dose Route Start Last Admin Trade Name Freq PRN Reason Stop Dose Admin Acetaminophen 650 mg 05/30/23 18:34 05/31/23 07:08 Acetaminophen Tab 325 Mg Tab PO 650 mg Q6HR PRN Administration Mild Pain or Fever > 100.5 Amiodarone HCl 200 mg 05/31/23 09:00 Amiodarone 200 Mg Tab PO BID BASIL Famotidine 20 mg 05/30/23 21:00 05/30/23 23:53 Famotidine 20 Mg/2 Ml Vial IV 20 mg HS BASIL Administration Norepinephrine Bitartrate 4 mg 254 mls @ 9.332 mls/hr 05/31/23 01:00 05/31/23 01:35 / Sodium Chloride IV 0.08 mcg/kg/min .Q24H [facility] 24.886 mls/hr Titration Protocol 0.03 MCG/KG/MIN Metoprolol Tartrate 25 mg 05/31/23 09:00 Metoprolol Tartrate 25 Mg Tab PO BID [facility] Midodrine 10 mg 05/30/23 21:30 05/31/23 07:07 Midodrine 5 Mg Tab PO 10 mg 0600,1000,1400,1800 [facility] Administration Morphine Sulfate 4 mg 05/30/23 18:34 05/30/23 23:50 Morphine Sulfate 4 Mg/Ml Syringe IV 4 mg Q4HR PRN Administration Severe Pain (Scale 7 to 10) Naloxone HCl 0.2 mg 05/30/23 18:34 Naloxone 0.4 Mg/Ml 1 Ml Vial IV Q2M PRN Opioid Reversal Ondansetron HCl 4 mg 05/30/23 18:34 Ondansetron 4 Mg/2 Ml Vial IVP Q8HR PRN Nausea And Vomiting Simethicone 40 mg 05/30/23 22:00 05/30/23 23:53 Simethicone 80 Mg Chewable PO 40 mg QID [facility] Administration Intake and Output 05/30/23 05/31/23 05/31/23 22:59 06:59 14:59 Intake Total 310 76.066 Output Total 0 0 Balance 310 76.066 0 Intake: Intake, IV Titration 6.066 Amount Norepinephrine 4 mg In 6.066 Sodium Chloride 0.9% 250 ml @ 0.03 MCG/KG/MIN 9. 332 mls/hr IV .Q24H [facility] Rx#:[id number] Oral 70 Blood Product 310 Rc As-1 Unit 310 [id number] Output: Urine 0 0 Other: Weight 90 kg 90 kg 05/31/23 04:44 05/31/23 04:44
[2023-05-31] MEDS ORDERED: DESMOPRESSIN ACETATE 4 MCG/ML VIAL (MDV) IV SCH (09:00)
[2023-05-31 09:49] LABS: HCT 20.4 % (39.0-53.0); Hypochromasia Moderate; MCH 31.6 pg (25.0-35.0); MCHC 31.3 g/dL (31.0-37.0); MCV 100.9 fL (80.0-100.0); Macrocytosis Slight; Mean Platelet Volume 8.4; Platelet Count 117 k/uL (150-450); RBC 2.02 m/uL (4.30-5.90); RDW 15.9 % (11.5-15.5); WBC 4.2 k/uL (3.8-10.6)
[2023-05-31 10:17] LABS: HGB 6.4 gm/dL (13.0-17.5)
--- NOTE | 2023-05-31 11:13 | P.CNPUL ---
History of Present Illness Consult date: 05/31/23 Requesting physician: Rob Storm Reason for consult: other (Critical care management) Chief complaint: Frequent falls, weakness History of present illness: This is a pleasant 52-year-old male patient with a known history of atrial fibrillation, seizure disorder, hypothyroidism, chronic kidney disease with previous kidney transplant in 1998 and initially was on CAPD at 19 years old. He has been on hemodialysis for quite some time. Receiving it at home Friday. He is legally blind. Lately he has been quite weak and has had multiple falls including a fall down the stairs and was here in the emergency room on 05/28/2023 he had multiple x-rays without fracture and was discharged back to home. Fever he presented back to the emergency room yesterday with the hematoma in the left flank area seem to be expanding. He also was having low blood pressures at home. He had mostly complaints of back pain and left leg pain. Unchanged since his fall. His hemoglobin was 6.1. His blood pressures were in the 80s and 90s systolic. He was admitted to the intensive care unit. He is seen today in consultation. He is currently awake and alert. He is maintaining O2 saturations in the 90s on 2 L/min per nasal cannula. He does have multiple areas of ecchymosis from recent falls. He is currently receiving hemodialysis through a right femoral groin catheter. There is a goal of 1 to 1-1/2 L to be removed if tolerated. He is on norepinephrine at 7.2 mcg/min. He is maintaining good O2 saturations in the 90s on 2 L/min per nasal cannula. Current mean arterial pressure is 81 he did receive 2 units of packed red blood cells. Current hemoglobin 6.1. Platelets 117. Count 4.2. Sodium 138. Potassium 4.3. Bicarb 24. BUN 58. Creatinine 9.77. CT scan from the chest on 05/28/2023 revealed mild bibasilar subsegmental atelectasis. No appreciable lung contusion or pneumothorax. There is some contusion in the right posterior lateral chest wall. No acute fracture seen. Review of Systems REVIEW OF SYSTEMS: CONSTITUTIONAL: Generalized weakness. Frequent falls. Denies any recent significant weight loss or weight gain. EYES: Denies change in vision. EARS, NOSE, MOUTH, THROAT: Denies headaches, denies sore throat. CARDIOVASCULAR: Denies chest pain, palpitations or syncopal episodes. RESPIRATORY: Denies shortness of breath, cough, congestion or hemoptysis. GASTROINTESTINAL: Denies change in appetite, denies abdominal pain GENITOURINARY: Denies hematuria, denies infections. MUSKULOSKELETAL: Positive for back pain, left lower extremity pain. INTEGUMENTARY: Denies rash, denies eczema. NEUROLOGICAL: Denies recent memory loss, no recent seizure activity. PSYCHIATRIC: Denies anxiety, denies depression. HEMATOLOGIC/LYMPHATIC: Positive for anemia, denies enlarged lymph nodes. Past Medical History Past Medical History: Atrial Fibrillation, Dialysis, GERD/Reflux, Renal Disease, Seizure Disorder, Thyroid Disorder Additional Past Medical History / Comment(s): hemodialysis M/W,F,/S at home, diverticulitis,blind, shingles in February, recent falls, kidney transplant in 1998, CAPD when pt was 19y.o, anemia, around 7 grand mal seizures in 2021, nonactive L. arm dialysis graft, R. groin dialysis port. History of Any Multi-Drug Resistant Organisms: None Reported Additional Past Surgical History / Comment(s): fistula placement , thyroidectomy, kidney transplant Past Anesthesia/Blood Transfusion Reactions: Previous Problems w/ Anesthesia Additional Past Anesthesia/Blood Transfusion Reaction / Comment(s): Pt has his surgery done with local anesthetics d/t general anesthesia causing facial edema and difficulty waking. Blood transfusion had no issues Past Psychological History: No Psychological Hx Reported Smoking Status: Never smoker Past Alcohol Use History: None Reported Past Drug Use History: None Reported - Past Family History Mother Family Medical History: Fibromyalgia, Osteoarthritis (OA) Additional Family Medical History / Comment(s): Lupus Family Family Medical History: No Reported History Additional Family Medical History / Comment(s): ETOH abuse Medications and Allergies Home Medications Medication Instructions Recorded Confirmed Type Levothyroxine Sodium [Synthroid] 50 mcg PO DAILY 12/18/17 05/30/23 History Montelukast [Singulair] 10 mg PO HS 12/18/17 05/30/23 History predniSONE 10 mg PO DAILY 04/25/21 05/30/23 History Atorvastatin [Lipitor] 20 mg PO DAILY 10/15/22 05/30/23 History Midodrine HCl [ProAmatine] 10 mg PO QID 10/15/22 05/30/23 History allopurinoL 100 mg PO DAILY 10/15/22 05/30/23 History calcitrioL 0.25 mcg PO SUTUWETHSA 10/15/22 05/30/23 History calcitrioL 0.5 mcg PO MOFR 10/15/22 05/30/23 History Fludrocortisone [Florinef] 0.1 mg PO DAILY 04/25/23 05/30/23 History Omeprazole [PriLOSEC] 20 mg PO DAILY 04/25/23 05/30/23 History Acetaminophen Tab [Tylenol] 650 mg PO Q4HR PRN tab 04/28/23 05/30/23 Rx Aspirin 81 mg PO DAILY #30 tab 04/28/23 05/30/23 Rx Amiodarone [Cordarone] 200 mg PO TID #90 tab 05/15/23 05/30/23 Rx Metoprolol Tartrate [Lopressor] 25 mg PO TID #90 tab 05/15/23 05/30/23 Rx methocarbamoL [Robaxin-750] 1,500 mg PO TID PRN 7 Days #42 tab 05/28/23 05/30/23 Rx Allergies Allergy/AdvReac Type Severity Reaction Status Date / Time adhesive tape Allergy Itching Verified 05/30/23 15:16 codeine Allergy Rash/Hives Verified 05/30/23 15:16 cyclobenzaprine Allergy Rash/Hives Verified 05/30/23 15:16 [From Flexeril] diphenhydramine Allergy Anaphylaxis Verified 05/30/23 15:16 [From Benadryl] hydromorphone [From Dilaudid] Allergy Rash/Hives Verified 05/30/23 15:16 hydroxyzine Allergy Anaphylaxis Verified 05/30/23 15:16 Iodinated Contrast Media Allergy Anaphylaxis Verified 05/30/23 15:16 [Iodinated Contrast- Oral and IV Dye] pantoprazole [From Protonix] Allergy Anaphylaxis Verified 05/30/23 15:16 Penicillins Allergy Rash/Hives Verified 05/30/23 15:16 potassium chloride Allergy Rash/Hives Verified 05/30/23 15:16 pregabalin [From Lyrica] Allergy Anaphylaxis Verified 05/30/23 15:16 sevelamer Allergy Rash/Hives Verified 05/30/23 15:16 warfarin [From Coumadin] Allergy Anaphylaxis Verified 05/30/23 15:16 acetaminophen [From Vicodin] AdvReac Nausea & Verified 05/30/23 15:16 Vomiting aripiprazole [From Abilify] AdvReac Abdominal Verified 05/30/23 15:16 Pain aztreonam AdvReac Unknown Verified 05/30/23 15:16 calcitriol AdvReac Unknown Verified 05/30/23 15:16 cefadroxil AdvReac Unknown Verified 05/30/23 15:16 enalapril AdvReac Unknown Verified 05/30/23 15:16 hydrocodone [From Vicodin] AdvReac Nausea & Verified 05/30/23 15:16 Vomiting Influenza Virus Vaccines AdvReac Unknown Verified 05/30/23 15:16 levofloxacin [From Levaquin] AdvReac Abdominal Verified 05/30/23 15:16 Pain meloxicam [From Mobic] AdvReac Abdominal Verified 05/30/23 15:16 Pain morphine AdvReac Unknown Verified 05/30/23 15:16 propoxyphene AdvReac Unknown Verified 05/30/23 15:16 Sulfa (Sulfonamide AdvReac Vomiting Verified 05/30/23 15:16 Antibiotics) tramadol AdvReac Unknown Verified 05/30/23 15:16 Physical Exam Vitals: Vital Signs Temp Pulse Pulse Resp BP Pulse Ox 05/31/23 10:00 98 F 61 23 107/57 100 05/31/23 09:45 59 L 18 96/52 99 05/31/23 09:30 98.1 F 78 14 111/55 100 05/31/23 09:15 96 16 88/64 100 05/31/23 09:00 98.1 F 61 18 112/54 98 05/31/23 08:45 67 25 H 114/54 100 05/31/23 08:30 77 18 108/59 100 05/31/23 08:15 70 14 104/58 99 05/31/23 08:00 97.9 F 70 20 101/52 100 05/31/23 07:45 72 22 99/57 97 05/31/23 07:30 70 110/57 97 05/31/23 07:15 71 17 125/68 98 05/31/23 07:00 100 12 105/61 97 05/31/23 06:45 67 107/62 94 L 05/31/23 06:30 97 12 111/59 93 L 03/16/24 06:15 99 92/51 95 05/31/23 06:00 64 19 89/50 97 05/31/23 05:45 64 88/53 96 05/31/23 05:30 63 85/52 97 05/31/23 05:15 65 20 92/54 98 05/31/23 05:00 68 99/56 97 05/31/23 04:45 67 96/49 99 05/31/23 04:30 66 94/50 97 05/31/23 04:15 66 91/51 94 L 05/31/23 04:00 97.9 F 67 18 89/52 98 05/31/23 03:45 68 90/45 98 05/31/23 03:30 68 90/51 96 05/31/23 03:15 69 17 84/52 92 L 05/31/23 03:00 70 15 104/53 82 L 05/31/23 02:45 75 95/48 96 05/31/23 02:30 72 86/55 88 L 05/31/23 02:15 72 12 100/48 96 05/31/23 02:00 70 18 90/44 98 05/31/23 01:45 70 18 84/45 98 05/31/23 01:30 71 72/37 98 05/31/23 01:15 70 15 72/32 97 05/31/23 01:00 72 15 67/39 97 05/31/23 00:45 78 20 79/41 97 05/31/23 00:30 81 85/46 96 05/31/23 00:15 80 88/56 96 05/31/23 00:00 97.6 F 117 H 117 H 18 109/61 94 L 05/30/23 23:45 117 H 16 95/61 97 05/30/23 23:30 101/50 98 05/30/23 23:15 80 14 98/49 96 05/30/23 23:00 97.9 F 81 15 96/40 98 05/30/23 22:50 80 05/30/23 22:26 97.6 F 74 16 85/29 100 05/30/23 21:51 108 H 19 86/53 98 05/30/23 20:29 97.7 F 73 16 73/37 95 05/30/23 20:26 97.7 F 77 16 96/30 95 05/30/23 20:08 88/45 05/30/23 19:45 74 16 68/46 05/30/23 19:33 98.1 F 77 17 88/41 96 05/30/23 19:13 98.0 F 109 H 20 97/41 96 05/30/23 19:03 97.8 F 106 H 22 85/50 96 05/30/23 17:53 74 16 89/46 97 05/30/23 17:00 68 18 78/33 96 05/30/23 16:03 80/43 05/30/23 15:12 98.3 F 74 18 80/52 100 Intake and Output 05/30/23 05/31/23 05/31/23 22:59 06:59 14:59 Intake Total 310 76.066 528.582 Output Total 0 0 Balance 310 76.066 528.582 Intake: Intake, IV Titration 6.066 218.582 Amount Norepinephrine 4 mg In 6.066 218.582 Sodium Chloride 0.9% 250 ml @ 0.03 MCG/KG/MIN 9. 332 mls/hr IV .Q24H [facility] Rx#:[id number] Oral 70 Blood Product 310 310 Rc As-1 Unit 310 [id number] Rc As-1 Unit 310 [id number] Output: Urine 0 0 Other: Weight 90 kg 90 kg GENERAL EXAM: Alert, pleasant 52-year-old male, legally blind, on 2 L nasal cannula, fairly comfortable in no apparent distress. HEAD: Normocephalic. EYES: Normal reaction of pupils, equal size. NOSE: Clear with pink turbinates. THROAT: No erythema or exudates. NECK: No masses, no JVD. CHEST: No chest wall deformity. LUNGS: Equal air entry with no crackles, wheeze, rhonchi or dullness. CVS: S1 and S2 normal with an audible murmur, irregular rhythm. ABDOMEN: No hepatosplenomegaly, normal bowel sounds, no guarding or rigidity. SPINE: No scoliosis or deformity SKIN: No rashes. Multiple areas of ecchymosis CENTRAL NERVOUS SYSTEM: No focal deficits, tone is normal in all 4 extremities. EXTREMITIES: Right groin hemodialysis catheter in place. There is no peripheral edema. No clubbing, no cyanosis. Peripheral pulses are intact. Results - Laboratory Findings CBC and BMP: 05/31/23 06:24 05/31/23 04:44 PT/INR, D-dimer PT 10.4 sec (10.0-12.5) 05/30/23 22:58 INR 0.9 (<1.2) 05/30/23 22:58 Abnormal lab findings: Abnormal Labs 05/30/23 05/30/23 05/30/23 15:54 15:54 17:13 RBC 1.92 L Hgb 6.1 L* D Hct 19.2 L* MCV RDW 16.4 H Plt Count 144 L Lymphocytes # Carbon Dioxide BUN 55 H Creatinine 9.01 H* Calcium Phosphorus Troponin I Total Protein 5.3 L Albumin 3.3 L Crossmatch See Detail 05/30/23 05/30/23 05/30/23 20:05 22:58 22:58 RBC 2.11 L Hgb 6.6 L* Hct 21.4 L MCV 101.1 H RDW 15.8 H Plt Count 125 L Lymphocytes # Carbon Dioxide 21 L BUN 57 H Creatinine 9.16 H* Calcium Phosphorus Troponin I 0.052 H* Total Protein Albumin Crossmatch 05/31/23 05/31/23 05/31/23 04:44 04:44 06:24 RBC 1.82 L 2.02 L Hgb 6.0 L* 6.4 L* Hct 18.1 L* 20.4 L MCV 100.9 H RDW 16.2 H 15.9 H Plt Count 103 L 117 L Lymphocytes # 0.9 L Carbon Dioxide BUN 58 H Creatinine 9.77 H* Calcium 8.2 L Phosphorus 6.5 H Troponin I Total Protein 4.9 L Albumin 2.9 L Crossmatch Assessment and Plan Assessment: Generalized weakness and frequent falls related to being legally blind, hypotensive, anemic Acute on chronic anemia with presenting hemoglobin 6.1. Status post 2 units of packed red blood cells. Current hemoglobin 6.4 Hypotension secondary to above requiring pressor support Acute hypoxic respiratory failure secondary to anemia, atelectasis Acute on chronic kidney disease, currently receiving hemodialysis History of kidney transplant in 1998 Chronic atrial fibrillation, not anticoagulated due to frequent falls and anemia Severely calcified aortic valve, moderate mitral calcification with mild to moderate mitral regurgitation Legally blind History of seizure disorder Hypothyroidism, post thyroidectomy Plan: The patient was seen and evaluated Previous CT scan of the chest, labs and medications reviewed Titrate the norepinephrine as tolerated Titrate the FiO2 as tolerated Continue to monitor hemoglobin closely Transfuse as needed Currently receiving hemodialysis Cardiology consult regarding anticoagulation We will continue to follow and make further recommendations based on his clinical status I have personally seen and examined the patient, performed the documentation and the assessment and plan as written. Number of minutes spent on the visit: 20.
--- NOTE | 2023-05-31 11:44 | P.NPCON ---
History of Present Illness - Reason for Consult Consult date: 05/31/23 end stage renal disease - History of Present Illness The patient is a 52-year-old male with known history of end-stage renal disease, on hemodialysis, status post renal transplant in the past, paroxysmal atrial fibrillation followed by Dr. Serrano who presented because of low hemoglobin. He fell about 3 weeks ago and injured his left knee and subsequently few days ago trying to go up the stairs his knee gave up and fell backward. He had significant ecchymosis on his back and his knee. He is home HD currently dialysi s 4 days per week. He was found to have low Hb in ED and received blood transfusion. His BP was low overnight and was transferred to ICU for pressor support. He continues to have low Hb this morning and requiring repeat transfusion. He denies any blood thinner use at home and last HD was Friday. He was seen while running on HD today and tolerating well with BP support on Levophed. States he cannot have contrast due to severe allergy in which he swells up and has allergy to Benadryl as well. Physical Examination: 52-year-old male, alert oriented no apparent distress Head: Normocephalic. Eyes: Sclerae nonicteric. Neck: Supple, no JVD Lungs: Clear to auscultation. Heart: Regular rate and rhythm, S1-S2, Abdomen: Soft nontender, positive bowel sounds no organomegaly. Obese Extremities: +1-2 edema on the left side, intact distal pulses. Review of Systems 14 point ROS negative unless stated in HPI. All systems: negative Past Medical History Past Medical History: Atrial Fibrillation, Dialysis, GERD/Reflux, Renal Disease, Seizure Disorder, Thyroid Disorder Additional Past Medical History / Comment(s): hemodialysis M/W,F,/S at home, diverticulitis,blind, shingles in February, recent falls, kidney transplant in 1998, CAPD when pt was 19y.o, anemia, around 7 grand mal seizures in 2021, nonactive L. arm dialysis graft, R. groin dialysis port. History of Any Multi-Drug Resistant Organisms: None Reported Additional Past Surgical History / Comment(s): fistula placement , thyroidectomy, kidney transplant Past Anesthesia/Blood Transfusion Reactions: Previous Problems w/ Anesthesia Additional Past Anesthesia/Blood Transfusion Reaction / Comment(s): Pt has his surgery done with local anesthetics d/t general anesthesia causing facial edema and difficulty waking. Blood transfusion had no issues Past Psychological History: No Psychological Hx Reported Smoking Status: Never smoker Past Alcohol Use History: None Reported Past Drug Use History: None Reported - Past Family History Mother Family Medical History: Fibromyalgia, Osteoarthritis (OA) Additional Family Medical History / Comment(s): Lupus Family Family Medical History: No Reported History Additional Family Medical History / Comment(s): ETOH abuse Medications and Allergies Home Medications Medication Instructions Recorded Confirmed Type Levothyroxine Sodium [Synthroid] 50 mcg PO DAILY 12/18/17 05/30/23 History Montelukast [Singulair] 10 mg PO HS 12/18/17 05/30/23 History predniSONE 10 mg PO DAILY 04/25/21 05/30/23 History Atorvastatin [Lipitor] 20 mg PO DAILY 10/15/22 05/30/23 History Midodrine HCl [ProAmatine] 10 mg PO QID 10/15/22 05/30/23 History allopurinoL 100 mg PO DAILY 10/15/22 05/30/23 History calcitrioL 0.25 mcg PO SUTUWETHSA 10/15/22 05/30/23 History calcitrioL 0.5 mcg PO MOFR 10/15/22 05/30/23 History Fludrocortisone [Florinef] 0.1 mg PO DAILY 04/25/23 05/30/23 History Omeprazole [PriLOSEC] 20 mg PO DAILY 04/25/23 05/30/23 History Acetaminophen Tab [Tylenol] 650 mg PO Q4HR PRN tab 04/28/23 05/30/23 Rx Aspirin 81 mg PO DAILY #30 tab 04/28/23 05/30/23 Rx Amiodarone [Cordarone] 200 mg PO TID #90 tab 05/15/23 05/30/23 Rx Metoprolol Tartrate [Lopressor] 25 mg PO TID #90 tab 05/15/23 05/30/23 Rx methocarbamoL [Robaxin-750] 1,500 mg PO TID PRN 7 Days #42 tab 05/28/23 05/30/23 Rx Allergies Allergy/AdvReac Type Severity Reaction Status Date / Time adhesive tape Allergy Itching Verified 05/30/23 15:16 codeine Allergy Rash/Hives Verified 05/30/23 15:16 cyclobenzaprine Allergy Rash/Hives Verified 05/30/23 15:16 [From Flexeril] diphenhydramine Allergy Anaphylaxis Verified 05/30/23 15:16 [From Benadryl] hydromorphone [From Dilaudid] Allergy Rash/Hives Verified 05/30/23 15:16 hydroxyzine Allergy Anaphylaxis Verified 05/30/23 15:16 Iodinated Contrast Media Allergy Anaphylaxis Verified 05/30/23 15:16 [Iodinated Contrast- Oral and IV Dye] pantoprazole [From Protonix] Allergy Anaphylaxis Verified 05/30/23 15:16 Penicillins Allergy Rash/Hives Verified 05/30/23 15:16 potassium chloride Allergy Rash/Hives Verified 05/30/23 15:16 pregabalin [From Lyrica] Allergy Anaphylaxis Verified 05/30/23 15:16 sevelamer Allergy Rash/Hives Verified 05/30/23 15:16 warfarin [From Coumadin] Allergy Anaphylaxis Verified 05/30/23 15:16 acetaminophen [From Vicodin] AdvReac Nausea & Verified 05/30/23 15:16 Vomiting aripiprazole [From Abilify] AdvReac Abdominal Verified 05/30/23 15:16 Pain aztreonam AdvReac Unknown Verified 05/30/23 15:16 calcitriol AdvReac Unknown Verified 05/30/23 15:16 cefadroxil AdvReac Unknown Verified 05/30/23 15:16 enalapril AdvReac Unknown Verified 05/30/23 15:16 hydrocodone [From Vicodin] AdvReac Nausea & Verified 05/30/23 15:16 Vomiting Influenza Virus Vaccines AdvReac Unknown Verified 05/30/23 15:16 levofloxacin [From Levaquin] AdvReac Abdominal Verified 05/30/23 15:16 Pain meloxicam [From Mobic] AdvReac Abdominal Verified 05/30/23 15:16 Pain morphine AdvReac Unknown Verified 05/30/23 15:16 propoxyphene AdvReac Unknown Verified 05/30/23 15:16 Sulfa (Sulfonamide AdvReac Vomiting Verified 05/30/23 15:16 Antibiotics) tramadol AdvReac Unknown Verified 05/30/23 15:16 Physical Exam Vitals: Vital Signs Temp Pulse Pulse Resp BP Pulse Ox 05/31/23 08:45 67 25 H 114/54 100 03/16/24 08:30 77 18 108/59 100 05/31/23 08:15 70 14 104/58 99 05/31/23 08:00 97.9 F 70 20 101/52 100 05/31/23 07:45 72 22 99/57 97 05/31/23 07:30 70 110/57 97 05/31/23 07:15 71 17 125/68 98 05/31/23 07:00 100 12 105/61 97 05/31/23 06:45 67 107/62 94 L 05/31/23 06:30 97 12 111/59 93 L 05/31/23 06:15 99 92/51 95 05/31/23 06:00 64 19 89/50 97 05/31/23 05:45 64 88/53 96 05/31/23 05:30 63 85/52 97 05/31/23 05:15 65 20 92/54 98 05/31/23 05:00 68 99/56 97 05/31/23 04:45 67 96/49 99 05/31/23 04:30 66 94/50 97 05/31/23 04:15 66 91/51 94 L 05/31/23 04:00 97.9 F 67 18 89/52 98 05/31/23 03:45 68 90/45 98 05/31/23 03:30 68 90/51 96 05/31/23 03:15 69 17 84/52 92 L 05/31/23 03:00 70 15 104/53 82 L 05/31/23 02:45 75 95/48 96 05/31/23 02:30 72 86/55 88 L 05/31/23 02:15 72 12 100/48 96 05/31/23 02:00 70 18 90/44 98 05/31/23 01:45 70 18 84/45 98 05/31/23 01:30 71 72/37 98 05/31/23 01:15 70 15 72/32 97 05/31/23 01:00 72 15 67/39 97 05/31/23 00:45 78 20 79/41 97 05/31/23 00:30 81 85/46 96 05/31/23 00:15 80 88/56 96 05/31/23 00:00 97.6 F 117 H 117 H 18 109/61 94 L 05/30/23 23:45 117 H 16 95/61 97 05/30/23 23:30 101/50 98 05/30/23 23:15 80 14 98/49 96 05/30/23 23:00 97.9 F 81 15 96/40 98 05/30/23 22:50 80 05/30/23 22:26 97.6 F 74 16 85/29 100 05/30/23 21:51 108 H 19 86/53 98 05/30/23 20:29 97.7 F 73 16 73/37 95 05/30/23 20:26 97.7 F 77 16 96/30 95 05/30/23 20:08 88/45 05/30/23 19:45 74 16 68/46 05/30/23 19:33 98.1 F 77 17 88/41 96 05/30/23 19:13 98.0 F 109 H 20 97/41 96 05/30/23 19:03 97.8 F 106 H 22 85/50 96 05/30/23 17:53 74 16 89/46 97 05/30/23 17:00 68 18 78/33 96 05/30/23 16:03 80/43 05/30/23 15:12 98.3 F 74 18 80/52 100 Intake and Output 05/30/23 05/31/23 05/31/23 22:59 06:59 14:59 Intake Total 310 76.066 0 Output Total 0 0 Balance 310 76.066 0 Intake: Intake, IV Titration 6.066 Amount Norepinephrine 4 mg In 6.066 Sodium Chloride 0.9% 250 ml @ 0.03 MCG/KG/MIN 9. 332 mls/hr IV .Q24H [facility] Rx#:[id number] Oral 70 Blood Product 310 0 Unit 0 Rc As-1 Unit 310 [id number] Output: Urine 0 0 Other: Weight 90 kg 90 kg Results - Lab Results Most recent lab results Calcium 8.2 mg/dL (8.4-10.2) L 05/31/23 04:44 Phosphorus 6.5 mg/dL (2.5-4.5) H 05/31/23 04:44 Magnesium 1.8 mg/dL (1.6-2.3) 05/31/23 04:44 05/31/23 06:05/31/23 04:44 Assessment and Plan Plan: Assessment: 1. End-stage renal disease maintained on home hemodialysis 4 days per week. Last HD was Friday, seen while on HD today. Femoral dialysis catheter 2. Acute blood loss anemia with ESRD. 3. Hemorrhagic shock maintained on Levophed. 4. Chronic kidney disease mineral bone disease maintained on Calcitriol. 5. Anemia of chronic kidney disease. Iron replete. 6. Chronic hypotension managed on midodrine and Florinef Plan: Seen on Hemodialysis today Scheduled midodrine 10 mg 3 times daily adn Florinef. Hold for systolic blood pressure greater than 110. On Levophed, wean as tolerated Transfuse for Hb <7.0, received 2 u PRBC so far. Further work-up for retroperitoneal bleed, received DDAVP for uremic platelet dysfunction in ED.
[2023-05-31] MEDS: LEVOTHYROXINE 50 MCG TAB PO SCH (12:18)
[2023-05-31] MEDS: METOPROLOL TARTRATE 25 MG TAB PO SCH (12:18)
[2023-05-31] MEDS: ATORVASTATIN 20 MG TAB PO SCH (12:18)
[2023-05-31] MEDS: FLUDROCORTISONE 0.1 MG TAB PO SCH (12:19)
[2023-05-31] MEDS: AMIODARONE 200 MG TAB PO SCH (12:19)
[2023-05-31] MEDS: NON FORMULARY DRUG (Omeprazole 20 MG Capsule.Dr) PO SCH (12:20)
[2023-05-31] MEDS: predniSONE 10 MG TAB PO SCH (12:21)
--- NOTE | 2023-05-31 13:12 | P.HPIM ---
History of Present Illness H&P Date: 05/31/23 Chief Complaint: Fall blood loss anemia, hemoglobin * 52-year-old gentleman with past medical history of end-stage renal disease on hemodialysis, doing home dialysis, history of atrial fibrillation, seizure disorder, history of anemia who was recently in ER after a fall on 05/28/2023. * During previous encounter patient had a CT chest CT pelvis CT lower extremity CT thoracic spine done which was negative for acute fracture, multilevel thoracic spondylosis noted. CT pelvis was done which was negative for acute fracture or dislocation, mild deformity of coccyx was noted subcutaneous fat stranding noted left iliac crest likely secondary to contusion small to moderate left knee effusion noted soft tissue edema noted in pelvis and lower extremity * Patient presented to the emergency for follow-up and low blood pressure, patient was noted to have hemoglobin of 6.1 baseline hemoglobin is greater than 8. Patient was noted to have hypovolemic shock and was transferred to medical ICU * Patient was started on IV Levophed consultation was obtained from cardiology and medical ICU team * Initial troponin obtained 0.052, basic metabolic panel showed sodium of 139 potassium 3.9 carbon dioxide 24 BUN 55 creatinine 9.01 total protein 5.3 albumin 3.3 * Serial EKGs were obtained which showed atrial fibrillation with controlled ventricular response REVIEW OF SYSTEMS: Fall, abdominal pain resolved CONSTITUTIONAL: No fever, no malaise, no fatigue. HEENT: No recent visual problems or hearing problems. Denied any sore throat. CARDIOVASCULAR: No chest pain, orthopnea, PND, no palpitations, no syncope. PULMONARY: No shortness of breath, no cough, no hemoptysis. GASTROINTESTINAL: No diarrhea, no nausea, no vomiting, no abdominal pain. NEUROLOGICAL: No headaches, no weakness, no numbness. HEMATOLOGICAL: Denies any bleeding or petechiae. GENITOURINARY: Denies any burning micturition, frequency, or urgency. MUSCULOSKELETAL/RHEUMATOLOGICAL: Denies any joint pain, swelling, or any muscle pain. ENDOCRINE: Denies any polyuria or polydipsia. PHYSICAL EXAMINATION: GENERAL: The patient is alert and oriented x3, ill appearance, right femoral hemodialysis access HEENT: Pupils are round and equally reacting to light. EOMI. No scleral icterus. CARDIOVASCULAR: S1 and S2 present. No murmurs, rubs, or gallops. PULMONARY: Chest is clear to auscultation, no wheezing or crackles. ABDOMEN: Soft, nontender, nondistended, normoactive bowel sounds. No palpable organomegaly. MUSCULOSKELETAL: No joint swelling or deformity. EXTREMITIES: No cyanosis, clubbing, or pedal edema. NEUROLOGICAL: Gross neurological examination did not reveal any focal deficits. SKIN: Bilateral flank bruising noted, bruising noted on forward Past Medical History Past Medical History: Atrial Fibrillation, Dialysis, GERD/Reflux, Renal Disease, Seizure Disorder, Thyroid Disorder Additional Past Medical History / Comment(s): hemodialysis M/W,F,/S at home, diverticulitis,blind, shingles in February, recent falls, kidney transplant in 1998, CAPD when pt was 19y.o, anemia, around 7 grand mal seizures in 2021, nonactive L. arm dialysis graft, R. groin dialysis port. History of Any Multi-Drug Resistant Organisms: None Reported Additional Past Surgical History / Comment(s): fistula placement , thyroidectomy, kidney transplant Past Anesthesia/Blood Transfusion Reactions: Previous Problems w/ Anesthesia Additional Past Anesthesia/Blood Transfusion Reaction / Comment(s): Pt has his surgery done with local anesthetics d/t general anesthesia causing facial edema and difficulty waking. Blood transfusion had no issues Past Psychological History: No Psychological Hx Reported Smoking Status: Never smoker Past Alcohol Use History: None Reported Past Drug Use History: None Reported - Past Family History Mother Family Medical History: Fibromyalgia, Osteoarthritis (OA) Additional Family Medical History / Comment(s): Lupus Family Family Medical History: No Reported History Additional Family Medical History / Comment(s): ETOH abuse Medications and Allergies Home Medications Medication Instructions Recorded Confirmed Type Levothyroxine Sodium [Synthroid] 50 mcg PO DAILY 12/18/17 05/30/23 History Montelukast [Singulair] 10 mg PO HS 12/18/17 05/30/23 History predniSONE 10 mg PO DAILY 04/25/21 05/30/23 History Atorvastatin [Lipitor] 20 mg PO DAILY 10/15/22 05/30/23 History Midodrine HCl [ProAmatine] 10 mg PO QID 10/15/22 05/30/23 History allopurinoL 100 mg PO DAILY 10/15/22 05/30/23 History calcitrioL 0.25 mcg PO SUTUWETHSA 10/15/22 05/30/23 History calcitrioL 0.5 mcg PO MOFR 10/15/22 05/30/23 History Fludrocortisone [Florinef] 0.1 mg PO DAILY 04/25/23 05/30/23 History Omeprazole [PriLOSEC] 20 mg PO DAILY 04/25/23 05/30/23 History Acetaminophen Tab [Tylenol] 650 mg PO Q4HR PRN tab 04/28/23 05/30/23 Rx Aspirin 81 mg PO DAILY #30 tab 04/28/23 05/30/23 Rx Amiodarone [Cordarone] 200 mg PO TID #90 tab 05/15/23 05/30/23 Rx Metoprolol Tartrate [Lopressor] 25 mg PO TID #90 tab 05/15/23 05/30/23 Rx methocarbamoL [Robaxin-750] 1,500 mg PO TID PRN 7 Days #42 tab 05/28/23 05/30/23 Rx Allergies Allergy/AdvReac Type Severity Reaction Status Date / Time adhesive tape Allergy Itching Verified 05/30/23 15:16 codeine Allergy Rash/Hives Verified 05/30/23 15:16 cyclobenzaprine Allergy Rash/Hives Verified 05/30/23 15:16 [From Flexeril] diphenhydramine Allergy Anaphylaxis Verified 05/30/23 15:16 [From Benadryl] hydromorphone [From Dilaudid] Allergy Rash/Hives Verified 05/30/23 15:16 hydroxyzine Allergy Anaphylaxis Verified 05/30/23 15:16 Iodinated Contrast Media Allergy Anaphylaxis Verified 05/30/23 15:16 [Iodinated Contrast- Oral and IV Dye] pantoprazole [From Protonix] Allergy Anaphylaxis Verified 05/30/23 15:16 Penicillins Allergy Rash/Hives Verified 05/30/23 15:16 potassium chloride Allergy Rash/Hives Verified 05/30/23 15:16 pregabalin [From Lyrica] Allergy Anaphylaxis Verified 05/30/23 15:16 sevelamer Allergy Rash/Hives Verified 05/30/23 15:16 warfarin [From Coumadin] Allergy Anaphylaxis Verified 05/30/23 15:16 acetaminophen [From Vicodin] AdvReac Nausea & Verified 05/30/23 15:16 Vomiting aripiprazole [From Abilify] AdvReac Abdominal Verified 05/30/23 15:16 Pain aztreonam AdvReac Unknown Verified 05/30/23 15:16 calcitriol AdvReac Unknown Verified 05/30/23 15:16 cefadroxil AdvReac Unknown Verified 05/30/23 15:16 enalapril AdvReac Unknown Verified 05/30/23 15:16 hydrocodone [From Vicodin] AdvReac Nausea & Verified 05/30/23 15:16 Vomiting Influenza Virus Vaccines AdvReac Unknown Verified 05/30/23 15:16 levofloxacin [From Levaquin] AdvReac Abdominal Verified 05/30/23 15:16 Pain meloxicam [From Mobic] AdvReac Abdominal Verified 05/30/23 15:16 Pain morphine AdvReac Unknown Verified 05/30/23 15:16 propoxyphene AdvReac Unknown Verified 05/30/23 15:16 Sulfa (Sulfonamide AdvReac Vomiting Verified 05/30/23 15:16 Antibiotics) tramadol AdvReac Unknown Verified 05/30/23 15:16 Physical Exam Vitals: Vital Signs Temp Pulse Pulse Resp BP Pulse Ox 05/31/23 08:45 67 25 H 114/54 100 05/31/23 08:30 77 18 108/59 100 05/31/23 08:15 70 14 104/58 99 05/31/23 08:00 97.9 F 70 20 101/52 100 05/31/23 07:45 72 22 99/57 97 05/31/23 07:30 70 110/57 97 05/31/23 07:15 71 17 125/68 98 05/31/23 07:00 100 12 105/61 97 05/31/23 06:45 67 107/62 94 L 05/31/23 06:30 97 12 111/59 93 L 05/31/23 06:15 99 92/51 95 05/31/23 06:00 64 19 89/50 97 05/31/23 05:45 64 88/53 96 05/31/23 05:30 63 85/52 97 05/31/23 05:15 65 20 92/54 98 05/31/23 05:00 68 99/56 97 05/31/23 04:45 67 96/49 99 05/31/23 04:30 66 94/50 97 05/31/23 04:15 66 91/51 94 L 05/31/23 04:00 97.9 F 67 18 89/52 98 05/31/23 03:45 68 90/45 98 05/31/23 03:30 68 90/51 96 05/31/23 03:15 69 17 84/52 92 L 05/31/23 03:00 70 15 104/53 82 L 05/31/23 02:45 75 95/48 96 05/31/23 02:30 72 86/55 88 L 05/31/23 02:15 72 12 100/48 96 05/31/23 02:00 70 18 90/44 98 05/31/23 01:45 70 18 84/45 98 05/31/23 01:30 71 72/37 98 05/31/23 01:15 70 15 72/32 97 05/31/23 01:00 72 15 67/39 97 05/31/23 00:45 78 20 79/41 97 05/31/23 00:30 81 85/46 96 05/31/23 00:15 80 88/56 96 05/31/23 00:00 97.6 F 117 H 117 H 18 109/61 94 L 05/30/23 23:45 117 H 16 95/61 97 05/30/23 23:30 101/50 98 05/30/23 23:15 80 14 98/49 96 05/30/23 23:00 97.9 F 81 15 96/40 98 05/30/23 22:50 80 05/30/23 22:26 97.6 F 74 16 85/29 100 05/30/23 21:51 108 H 19 86/53 98 05/30/23 20:29 97.7 F 73 16 73/37 95 05/30/23 20:26 97.7 F 77 16 96/30 95 05/30/23 20:08 88/45 05/30/23 19:45 74 16 68/46 05/30/23 19:33 98.1 F 77 17 88/41 96 05/30/23 19:13 98.0 F 109 H 20 97/41 96 05/30/23 19:03 97.8 F 106 H 22 85/50 96 05/30/23 17:53 74 16 89/46 97 05/30/23 17:00 68 18 78/33 96 05/30/23 16:03 80/43 05/30/23 15:12 98.3 F 74 18 80/52 100 Intake and Output 05/30/23 05/31/23 05/31/23 22:59 06:59 14:59 Intake Total 310 76.066 Output Total 0 0 Balance 310 76.066 0 Intake: Intake, IV Titration 6.066 Amount Norepinephrine 4 mg In 6.066 Sodium Chloride 0.9% 250 ml @ 0.03 MCG/KG/MIN 9. 332 mls/hr IV .Q24H [facility] Rx#:[id number] Oral 70 Blood Product 310 Rc As-1 Unit 310 [id number] Output: Urine 0 0 Other: Weight 90 kg 90 kg Results CBC & Chem 7: 05/31/23 06:24 05/31/23 04:44 Labs: Abnormal Lab Results - Last 24 Hours (Table) 05/30/23 05/30/23 05/30/23 Range/Units 15:54 15:54 17:13 RBC 1.92 L (4.30-5.90) m/uL Hgb 6.1 L* D (13.0-17.5) gm/dL Hct 19.2 L* (39.0-53.0) % MCV (80.0-100.0) fL RDW 16.4 H (11.5-15.5) % Plt Count 144 L (150-450) k/uL Lymphocytes # (1.0-4.8) k/uL Carbon Dioxide (22-30) mmol/L BUN 55 H (9-20) mg/dL Creatinine 9.01 H* (0.66-1.25) mg/dL Calcium (8.4-10.2) mg/dL Phosphorus (2.5-4.5) mg/dL Troponin I (0.000-0.034) ng/mL Total Protein 5.3 L (6.3-8.2) g/dL Albumin 3.3 L (3.5-5.0) g/dL Crossmatch See Detail 05/30/23 05/30/23 05/30/23 Range/Units 20:05 22:58 22:58 RBC 2.11 L (4.30-5.90) m/uL Hgb 6.6 L* (13.0-17.5) gm/dL Hct 21.4 L (39.0-53.0) % MCV 101.1 H (80.0-100.0) fL RDW 15.8 H (11.5-15.5) % Plt Count 125 L (150-450) k/uL Lymphocytes # (1.0-4.8) k/uL Carbon Dioxide 21 L (22-30) mmol/L BUN 57 H (9-20) mg/dL Creatinine 9.16 H* (0.66-1.25) mg/dL Calcium (8.4-10.2) mg/dL Phosphorus (2.5-4.5) mg/dL Troponin I 0.052 H* (0.000-0.034) ng/mL Total Protein (6.3-8.2) g/dL Albumin (3.5-5.0) g/dL Crossmatch 05/31/23 05/31/23 Range/Units 04:44 04:44 RBC 1.82 L (4.30-5.90) m/uL Hgb 6.0 L* (13.0-17.5) gm/dL Hct 18.1 L* (39.0-53.0) % MCV (80.0-100.0) fL RDW 16.2 H (11.5-15.5) % Plt Count 103 L (150-450) k/uL Lymphocytes # 0.9 L (1.0-4.8) k/uL Carbon Dioxide (22-30) mmol/L BUN 58 H (9-20) mg/dL Creatinine 9.77 H* (0.66-1.25) mg/dL Calcium 8.2 L (8.4-10.2) mg/dL Phosphorus 6.5 H (2.5-4.5) mg/dL Troponin I (0.000-0.034) ng/mL Total Protein 4.9 L (6.3-8.2) g/dL Albumin 2.9 L (3.5-5.0) g/dL Crossmatch Thrombosis Risk Factor Assmnt - DVT/VTE Prophylaxis DVT/VTE Prophylaxis: Mechanical Prophylaxis ordered - Choose All That Apply Any of the Below Risk Factors Present?: Yes Each Factor Represents 1 point: Age 41-60 years, Obesity (BMI >25) Other Risk Factors: No Other congenital or acquired thrombophilia - If yes, enter type in comment: No Thrombosis Risk Factor Assessment Total Risk Factor Score: 2 Thrombosis Risk Factor Assessment Level: Low Risk Assessment and Plan Assessment: Assessment and plan * S/p fall, with blood loss anemia * End-stage renal disease on hemodialysis * Hypovolemic shock from blood loss * Evaded troponin type II MD * Chronic atrial fibrillation * Valvular heart disease with aortic stenosis * History of hypotension on midodrine * History of renal transplant * Regards to fall, will maintain fall precautions, patient had a CT chest abdomen and pelvis done on 05/28/2023, will continue to monitor. Suspect soft tissue contusion * In regards to end-stage renal disease on hemodialysis nephrology consulted, continue patient on midodrine * Regards to history of atrial fibrillation continue on telemonitoring, continue amiodarone, cardiology consulted * In regards to blood loss anemia patient given 2 unit of packed RBC follow-up H&H ordered * Regards to shock continue patient on Levophed, wean off as tolerated management medical ICU * CODE STATUS is full code Time with Patient: Greater than 30
[2023-05-31 17:19] LABS: Anisocytosis Slight; HCT 24.6 % (39.0-53.0); HGB 7.8 gm/dL (13.0-17.5); Hypochromasia Slight; MCH 31.1 pg (25.0-35.0); MCHC 31.8 g/dL (31.0-37.0); MCV 98.1 fL (80.0-100.0); Macrocytosis Slight; Mean Platelet Volume 7.5; Platelet Count 113 k/uL (150-450); Poikilocytosis Slight; RBC 2.51 m/uL (4.30-5.90); WBC 6.9 k/uL (3.8-10.6)
[2023-05-31] MEDS: MONTELUKAST 10 MG TAB PO SCH (19:46)
[2023-05-31] MEDS: NON FORMULARY DRUG (Omeprazole 20 MG) PO SCH (20:20)
[2023-05-31] MEDS: methocarbamoL 750 MG TAB PO PRN (21:34)
[2023-06-01 02:35] LABS: ALT 11 U/L (4-49); AST 19 U/L (17-59); African American GFR (CKD) 11 (>60 ml/min/1.73 sqM); Alkaline Phosphatase 57 U/L (38-126); Anion Gap 8 mmol/L; Blood Urea Nitrogen 37 mg/dL (9-20); Calcium 8.1 mg/dL (8.4-10.2); Carbon Dioxide 26 mmol/L (22-30); Chloride 101 mmol/L (98-107); Glucose 93 mg/dL (74-99); Magnesium 1.8 mg/dL (1.6-2.3); Non-African American GFR(CKD) 10 (>60 ml/min/1.73 sqM); Potassium 4.3 mmol/L (3.5-5.1); Sodium 135 mmol/L (137-145); Total Bilirubin 1.2 mg/dL (0.2-1.3)
[2023-06-01 02:53] LABS: Anisocytosis Slight; Basophils % (A) 0 %; Eosinophils % (A) 1 %; HCT 22.1 % (39.0-53.0); Hypochromasia Slight; Lymphocytes # (A) 0.7 k/uL (1.0-4.8); Lymphocytes % (A) 18 %; MCH 30.9 pg (25.0-35.0); MCHC 31.7 g/dL (31.0-37.0); MCV 97.6 fL (80.0-100.0); Macrocytosis Slight; Monocytes # (A) 0.3 k/uL (0-1.0); Monocytes % (A) 8 %; Neutrophils % (A) 72 %; Platelet Count 102 k/uL (150-450); Poikilocytosis Slight; RBC 2.26 m/uL (4.30-5.90); RDW 16.1 % (11.5-15.5); WBC 4.1 k/uL (3.8-10.6)
[2023-06-01] MEDS: MAGNESIUM SULFATE-D5W PMX 1 GM in DEXTROSE/WATER 1 100ML.BAG IVPB ONE (02:57)
--- NOTE | 2023-06-01 08:19 | P.PN ---
Subjective Progress Note Date: 06/01/23 History of Present Illness: The patient is a 52-year-old male with known history of end-stage renal disease, on hemodialysis, status post renal transplant in the past, paroxysmal atrial fibrillation followed by Dr. Serrano who presented because of low hemoglobin. He fell about 3 weeks ago and injured his left knee and subsequently few days ago trying to go up the stairs his knee gave up and fell backward. He had significant ecchymosis on his back and his knee. He has been having chest discomfort for the last 6 months not activity related. His discomfort is more often after he eats. He has mild dyspnea but no syncope. He denies any palpitations. He has not been anticoagulated. He had prior admission to the hospital with elevation of the troponin that was felt to be related to his chronic kidney disease. The patient has prior admission for anemia. He had an echocardiogram obtained in April that showed a preserved systolic function with a mean gradient of 31 mmHg across the aortic valve with mild aortic and tricuspid regurgitation and mild to moderate mitral regurgitation. He had an MPI in August 2021 that showed a preserved systolic function. He did not feel the palpitation on presentation but was in atrial fibrillation, he is back in sinus mechanism at this time. He has no prior history of smoking or diabetes. His activity is limited but stable. May 31: The patient is feeling better today, he was dialyzed yesterday. He is in sinus mechanism. He had episodes of paroxysmal atrial fibrillation and sinus bradycardia but no significant pauses. He continues to have left knee discomfort and edema. He has ecchymosis in the back. He denies any nausea or vomiting. His breathing is stable. He has no significant chest discomfort. Medications: Amiodarone 200 mg twice a day, atorvastatin 20 mg daily, Florinef, metoprolol 25 mg 3 times daily, midodrine, prednisone 10 mg daily Physical Examination: 52-year-old male, alert oriented no apparent distress,Blood pressure 106/80, Heart rate 70 Head: Normocephalic. Eyes: Sclerae nonicteric. Neck: Good carotid upstroke, no bruit, no jugular venous distention. Lungs: Clear to auscultation. Significant ecchymosis on the back Heart: Regular rate and rhythm, S1-S2, no S3, no rub. Systolic ejection murmur. Abdomen: Soft nontender, positive bowel sounds no organomegaly. Extremities: +1-2 edema more on the left side, intact distal pulses, ecchymosis on the left knee and down to the foot. Labs: Hemoglobin 7, BUN 37, creatinine 6.23. Potassium 4.3. Impression: 1. Severe anemia 2. Paroxysmal atrial fibrillation 3. Elevation of troponin secondary to renal failure and anemia, type II myocardial infarction 4. End-stage renal disease on hemodialysis status post failed transplant 5. Moderate aortic stenosis Plan: 1. Continue present therapy 2. Transfuse as needed 3. Consider Watchman procedure post stabilization because of the recurrent atrial fibrillation and the inability to tolerate anticoagulation 4. Dialysis tomorrow 5. Depending on his progress further recommendations will be made Objective - Vital Signs Vital signs: Vital Signs Temp 98.0 F 06/01/23 04:00 Pulse 73 06/01/23 07:00 Resp 12 06/01/23 07:00 BP 106/84 06/01/23 07:00 Pulse Ox 98 06/01/23 07:00 FiO2 Intake & Output 05/31/23 06/01/23 06/01/23 18:59 06:59 18:59 Intake Total 3573.671 169.579 Output Total 1300 0 0 Balance 2273.671 169.579 0 Weight 87.2 kg Intake: Intake, IV Titration 403.671 69.579 Amount Norepinephrine 4 mg In 403.671 69.579 Sodium Chloride 0.9% 250 ml @ 0.03 MCG/KG/MIN 9. 332 mls/hr IV .Q24H [facility] Rx#:[id number] Oral 360 100 Blood Product 310 Rc As-1 Unit 310 [id number] Hemodialysis 2500 Output: Urine 0 0 0 Hemodialysis 1300 - Labs CBC & Chem 7: 06/01/23 02:11 06/01/23 02:11 Labs: Abnormal Lab Results - Last 24 Hours (Table) 05/30/23 05/31/23 05/31/23 Range/Units 17:13 06:24 17:05 RBC 2.02 L 2.51 L (4.30-5.90) m/uL Hgb 6.4 L* 7.8 L (13.0-17.5) gm/dL Hct 20.4 L 24.6 L (39.0-53.0) % MCV 100.9 H (80.0-100.0) fL RDW 15.9 H 16.0 H (11.5-15.5) % Plt Count 117 L 113 L (150-450) k/uL Lymphocytes # (1.0-4.8) k/uL Sodium (137-145) mmol/L BUN (9-20) mg/dL Creatinine (0.66-1.25) mg/dL Calcium (8.4-10.2) mg/dL Total Protein (6.3-8.2) g/dL Albumin (3.5-5.0) g/dL Crossmatch See Detail 06/01/23 06/01/23 Range/Units 02:11 02:11 RBC 2.26 L (4.30-5.90) m/uL Hgb 7.0 L (13.0-17.5) gm/dL Hct 22.1 L (39.0-53.0) % MCV (80.0-100.0) fL RDW 16.1 H (11.5-15.5) % Plt Count 102 L (150-450) k/uL Lymphocytes # 0.7 L (1.0-4.8) k/uL Sodium 135 L (137-145) mmol/L BUN 37 H (9-20) mg/dL Creatinine 6.23 H (0.66-1.25) mg/dL Calcium 8.1 L (8.4-10.2) mg/dL Total Protein 5.0 L (6.3-8.2) g/dL Albumin 3.0 L (3.5-5.0) g/dL Crossmatch
--- NOTE | 2023-06-01 09:19 | P.PN ---
Subjective Progress Note Date: 06/01/23 Principal diagnosis: Anemia, hypotension. This is a pleasant 52-year-old male patient with a known history of atrial fibrillation, seizure disorder, hypothyroidism, chronic kidney disease with previous kidney transplant in 1998 and initially was on CAPD at 19 years old. He has been on hemodialysis for quite some time. Receiving it at home Friday. He is legally blind. Lately he has been quite weak and has had multiple falls including a fall down the stairs and was here in the emergency room on 05/28/2023 he had multiple x-rays without fracture and was discharged back to home. Fever he presented back to the emergency room yesterday with the hematoma in the left flank area seem to be expanding. He also was having low blood pressures at home. He had mostly complaints of back pain and left leg pain. Unchanged since his fall. His hemoglobin was 6.1. His blood pressures were in the 80s and 90s systolic. He was admitted to the intensive care unit. He is seen today in consultation. He is currently awake and alert. He is maintaining O2 saturations in the 90s on 2 L/min per nasal cannula. He does have multiple areas of ecchymosis from recent falls. He is currently receiving hemodialysis through a right femoral groin catheter. There is a goal of 1 to 1-1/2 L to be removed if tolerated. He is on norepinephrine at 7.2 mcg/min. He is maintaining good O2 saturations in the 90s on 2 L/min per nasal cannula. Current mean arterial pressure is 81 he did receive 2 units of packed red blood cells. Current hemoglobin 6.1. Platelets 117. Count 4.2. Sodium 138. Potassium 4.3. Bicarb 24. BUN 58. Creatinine 9.77. CT scan from the chest on 05/28/2023 revealed mild bibasilar subsegmental atelectasis. No appreciable lung contusion or pneumothorax. There is some contusion in the right posterior lateral chest wall. No acute fracture seen. Progress note dated June 01, 2023. The patient is seen today in room 258. He was seen in consultation, yesterday. Please see the consult note above. Currently, the patient is on room air. He is not receiving any IV fluids. The patient is not scheduled to have hemodialysis today. Since being admitted, the patient has received a total of 2 units of packed red blood cells. According to the nurse, the patient had an uneventful night. Current labs include a white count 4.1, hemoglobin 7, hematocrit 22.1, and a platelet count of 102,000. Sodium 135, potassium 4.3, chlorides 101, CO2 26, BUN 37, creatinine 6.23. Calcium is 8.1. Albumin is 3.0. No chest x-ray today. Objective - Vital Signs Vital signs: Vital Signs Temp 98.0 F 06/01/23 04:00 Pulse 73 06/01/23 07:00 Resp 12 06/01/23 07:00 BP 106/84 06/01/23 07:00 Pulse Ox 98 06/01/23 07:00 FiO2 Intake & Output 05/31/23 06/01/23 06/01/23 18:59 06:59 18:59 Intake Total 3573.671 169.579 Output Total 1300 0 0 Balance 2273.671 169.579 0 Weight 87.2 kg Intake: Intake, IV Titration 403.671 69.579 Amount Norepinephrine 4 mg In 403.671 69.579 Sodium Chloride 0.9% 250 ml @ 0.03 MCG/KG/MIN 9. 332 mls/hr IV .Q24H [facility] Rx#:[id number] Oral 360 100 Blood Product 310 Rc As-1 Unit 310 [id number] Hemodialysis 2500 Output: Urine 0 0 0 Hemodialysis 1300 - Exam No acute distress, oriented 3. Currently on room air. Saturations are 98%. HEENT examination is grossly unremarkable. Mucous membranes are moist. No oral lesions. Neck supple. Full range of motion. No adenopathy thyromegaly or neck vein distention. Cardiovascular examination reveals an irregular rhythm. S1-S2 normal. No S3 or S4. No discernible murmur noted. Heart sounds are distant. Heart rate 73 bpm. Lungs reveal clear breath sounds. Breath sounds are equal bilaterally. No adventitious lung sounds including wheezes rhonchi or crackles. Abdomen is soft, with bowel sounds. No masses or tenderness. Extremities are intact. No cyanosis clubbing or edema. Skin reveals multiple large ecchymoses. Neurologic examination is brief but nonfocal. - Labs CBC & Chem 7: 06/01/23 02:11 06/01/23 02:11 Labs: Abnormal Lab Results - Last 24 Hours (Table) 05/30/23 05/31/23 05/31/23 Range/Units 17:13 06:24 17:05 RBC 2.02 L 2.51 L (4.30-5.90) m/uL Hgb 6.4 L* 7.8 L (13.0-17.5) gm/dL Hct 20.4 L 24.6 L (39.0-53.0) % MCV 100.9 H (80.0-100.0) fL RDW 15.9 H 16.0 H (11.5-15.5) % Plt Count 117 L 113 L (150-450) k/uL Lymphocytes # (1.0-4.8) k/uL Sodium (137-145) mmol/L BUN (9-20) mg/dL Creatinine (0.66-1.25) mg/dL Calcium (8.4-10.2) mg/dL Total Protein (6.3-8.2) g/dL Albumin (3.5-5.0) g/dL Crossmatch See Detail 06/01/23 06/01/23 Range/Units 02:11 02:11 RBC 2.26 L (4.30-5.90) m/uL Hgb 7.0 L (13.0-17.5) gm/dL Hct 22.1 L (39.0-53.0) % MCV (80.0-100.0) fL RDW 16.1 H (11.5-15.5) % Plt Count 102 L (150-450) k/uL Lymphocytes # 0.7 L (1.0-4.8) k/uL Sodium 135 L (137-145) mmol/L BUN 37 H (9-20) mg/dL Creatinine 6.23 H (0.66-1.25) mg/dL Calcium 8.1 L (8.4-10.2) mg/dL Total Protein 5.0 L (6.3-8.2) g/dL Albumin 3.0 L (3.5-5.0) g/dL Crossmatch Assessment and Plan Assessment: Generalized weakness and frequent falls related to being legally blind, hypotensive, and anemic. Acute on chronic anemia with presenting hemoglobin 6.1. Status post 2 units of packed red blood cells. Hypotension secondary to above requiring pressor support, resolved. Acute hypoxic respiratory failure secondary to anemia, and atelectasis. Acute on chronic kidney disease, currently receiving hemodialysis. History of kidney transplant in 1998. Chronic atrial fibrillation, not anticoagulated due to frequent falls and anemia. Severely calcified aortic valve, moderate mitral calcification with mild to moderate mitral regurgitation. Legally blind. History of seizure disorder. Hypothyroidism, post thyroidectomy. Plan: Plan dated June 01, 2023. The patient is seen today and examined, in room 258. The patient is no longer on norepinephrine. He is on room air. Not receiving any IV fluids. Since his admission, the patient has received 2 units of packed red blood cells. No plans for hemodialysis today. We will continue to follow the patient, make recommendations along the way. The patient is overall prognosis remains guarded. Labs, x-rays, and all medications are reviewed. Time with Patient: Less than 30
--- NOTE | 2023-06-01 11:18 | P.PN ---
Subjective Progress Note Date: 06/01/23 Patient follow-up for ESRD on home HD. Feeling better today with decreased back pain. Physical Examination: Vitals reviewed. Head: Normocephalic. Lungs: Clear to auscultation. Heart: Regular rate and rhythm, S1-S2, Abdomen: Soft nontender, positive bowel sounds no organomegaly. Obese Extremities: +1-2 edema on the left side, intact distal pulses. Objective - Vital Signs Vital signs: Vital Signs Temp 98.1 F 06/01/23 08:00 Pulse 60 06/01/23 09:00 Resp 20 06/01/23 09:00 BP 112/67 06/01/23 09:00 Pulse Ox 98 06/01/23 09:00 FiO2 Intake & Output 05/31/23 06/01/23 06/01/23 18:59 06:59 18:59 Intake Total 3573.671 169.579 Output Total 1300 0 0 Balance 2273.671 169.579 0 Weight 87.2 kg Intake: Intake, IV Titration 403.671 69.579 Amount Norepinephrine 4 mg In 403.671 69.579 Sodium Chloride 0.9% 250 ml @ 0.03 MCG/KG/MIN 9. 332 mls/hr IV .Q24H [facility] Rx#:[id number] Oral 360 100 Blood Product 310 Rc As-1 Unit 310 [id number] Hemodialysis 2500 Output: Urine 0 0 0 Hemodialysis 1300 - Labs CBC & Chem 7: 06/01/23 02:11 06/01/23 02:11 Labs: Abnormal Lab Results - Last 24 Hours (Table) 05/30/23 05/31/23 05/31/23 Range/Units 17:13 06:24 17:05 RBC 2.02 L 2.51 L (4.30-5.90) m/uL Hgb 6.4 L* 7.8 L (13.0-17.5) gm/dL Hct 20.4 L 24.6 L (39.0-53.0) % MCV 100.9 H (80.0-100.0) fL RDW 15.9 H 16.0 H (11.5-15.5) % Plt Count 117 L 113 L (150-450) k/uL Lymphocytes # (1.0-4.8) k/uL Sodium (137-145) mmol/L BUN (9-20) mg/dL Creatinine (0.66-1.25) mg/dL Calcium (8.4-10.2) mg/dL Total Protein (6.3-8.2) g/dL Albumin (3.5-5.0) g/dL Crossmatch See Detail 06/01/23 06/01/23 Range/Units 02:11 02:11 RBC 2.26 L (4.30-5.90) m/uL Hgb 7.0 L (13.0-17.5) gm/dL Hct 22.1 L (39.0-53.0) % MCV (80.0-100.0) fL RDW 16.1 H (11.5-15.5) % Plt Count 102 L (150-450) k/uL Lymphocytes # 0.7 L (1.0-4.8) k/uL Sodium 135 L (137-145) mmol/L BUN 37 H (9-20) mg/dL Creatinine 6.23 H (0.66-1.25) mg/dL Calcium 8.1 L (8.4-10.2) mg/dL Total Protein 5.0 L (6.3-8.2) g/dL Albumin 3.0 L (3.5-5.0) g/dL Crossmatch Assessment and Plan Plan: Assessment: 1. End-stage renal disease maintained on home hemodialysis 4 days per week ///. HD yesterday. Femoral dialysis catheter. 2. Acute blood loss anemia with ESRD. 3. Hemorrhagic shock maintained on Levophed. 4. Chronic kidney disease mineral bone disease maintained on Calcitriol. 5. Anemia of chronic kidney disease. Iron replete. 6. Chronic hypotension managed on midodrine and Florinef Plan: HD yesterday, next treatment tomorrow. Midodrine 10 mg 3 times daily adn Florinef. Hold for systolic blood pressure greater than 110. Off Levophed this morning. Transfuse for Hb <7.0. Further work-up for retroperitoneal bleed, received DDAVP for uremic platelet dysfunction in ED. Consider surgical evaluation.
--- NOTE | 2023-06-01 12:04 | P.PN ---
Subjective Progress Note Date: 06/01/23 * 52-year-old gentleman with past medical history of end-stage renal disease on hemodialysis, doing home dialysis, history of atrial fibrillation, seizure disorder, history of anemia who was recently in ER after a fall on 05/28/2023. * During previous encounter patient had a CT chest CT pelvis CT lower extremity CT thoracic spine done which was negative for acute fracture, multilevel thoracic spondylosis noted. CT pelvis was done which was negative for acute fracture or dislocation, mild deformity of coccyx was noted subcutaneous fat stranding noted left iliac crest likely secondary to contusion small to moderate left knee effusion noted soft tissue edema noted in pelvis and lower extremity * Patient presented to the emergency for follow-up and low blood pressure, patient was noted to have hemoglobin of 6.1 baseline hemoglobin is greater than 8. Patient was noted to have hypovolemic shock and was transferred to medical ICU * Patient was started on IV Levophed consultation was obtained from cardiology and medical ICU team * Initial troponin obtained 0.052, basic metabolic panel showed sodium of 139 potassium 3.9 carbon dioxide 24 BUN 55 creatinine 9.01 total protein 5.3 albumin 3.3 * Serial EKGs were obtained which showed atrial fibrillation with controlled ventricular response * 06/01/23: Patient seen and evaluated bedside, patient has been weaned off Levophed, hemoglobin remains around 7. Patient does have flank bruises likely retroperitoneal bleed continue to monitor H&H REVIEW OF SYSTEMS: Fall, abdominal pain resolved CONSTITUTIONAL: No fever, no malaise, no fatigue. HEENT: No recent visual problems or hearing problems. Denied any sore throat. CARDIOVASCULAR: No chest pain, orthopnea, PND, no palpitations, no syncope. PULMONARY: No shortness of breath, no cough, no hemoptysis. GASTROINTESTINAL: No diarrhea, no nausea, no vomiting, no abdominal pain. NEUROLOGICAL: No headaches, no weakness, no numbness. HEMATOLOGICAL: Denies any bleeding or petechiae. GENITOURINARY: Denies any burning micturition, frequency, or urgency. MUSCULOSKELETAL/RHEUMATOLOGICAL: Denies any joint pain, swelling, or any muscle pain. ENDOCRINE: Denies any polyuria or polydipsia. PHYSICAL EXAMINATION: GENERAL: The patient is alert and oriented x3, ill appearance, right femoral hemodialysis access HEENT: Pupils are round and equally reacting to light. EOMI. No scleral icterus. CARDIOVASCULAR: S1 and S2 present. No murmurs, rubs, or gallops. PULMONARY: Chest is clear to auscultation, no wheezing or crackles. ABDOMEN: Soft, nontender, nondistended, normoactive bowel sounds. No palpable organomegaly. MUSCULOSKELETAL: No joint swelling or deformity. EXTREMITIES: No cyanosis, clubbing, or pedal edema. NEUROLOGICAL: Gross neurological examination did not reveal any focal deficits. SKIN: Bilateral flank bruising noted, bruising noted on forward Objective - Vital Signs Vital signs: Vital Signs Temp 98.1 F 06/01/23 08:00 Pulse 67 06/01/23 10:00 Resp 20 06/01/23 10:00 BP 108/63 06/01/23 10:00 Pulse Ox 92 L 06/01/23 10:00 FiO2 Intake & Output 05/31/23 06/01/23 06/01/23 18:59 06:59 18:59 Intake Total 3573.671 169.579 Output Total 1300 0 0 Balance 2273.671 169.579 0 Weight 87.2 kg Intake: Intake, IV Titration 403.671 69.579 Amount Norepinephrine 4 mg In 403.671 69.579 Sodium Chloride 0.9% 250 ml @ 0.03 MCG/KG/MIN 9. 332 mls/hr IV .Q24H [facility] Rx#:[id number] Oral 360 100 Blood Product 310 Rc As-1 Unit 310 [id number] Hemodialysis 2500 Output: Urine 0 0 0 Hemodialysis 1300 - Labs CBC & Chem 7: 06/01/23 02:11 06/01/23 02:11 Labs: Abnormal Lab Results - Last 24 Hours (Table) 05/30/23 05/31/23 06/01/23 Range/Units 17:13 17:05 02:11 RBC 2.51 L 2.26 L (4.30-5.90) m/uL Hgb 7.8 L 7.0 L (13.0-17.5) gm/dL Hct 24.6 L 22.1 L (39.0-53.0) % RDW 16.0 H 16.1 H (11.5-15.5) % Plt Count 113 L 102 L (150-450) k/uL Lymphocytes # 0.7 L (1.0-4.8) k/uL Sodium (137-145) mmol/L BUN (9-20) mg/dL Creatinine (0.66-1.25) mg/dL Calcium (8.4-10.2) mg/dL Total Protein (6.3-8.2) g/dL Albumin (3.5-5.0) g/dL Crossmatch See Detail 06/01/23 Range/Units 02:11 RBC (4.30-5.90) m/uL Hgb (13.0-17.5) gm/dL Hct (39.0-53.0) % RDW (11.5-15.5) % Plt Count (150-450) k/uL Lymphocytes # (1.0-4.8) k/uL Sodium 135 L (137-145) mmol/L BUN 37 H (9-20) mg/dL Creatinine 6.23 H (0.66-1.25) mg/dL Calcium 8.1 L (8.4-10.2) mg/dL Total Protein 5.0 L (6.3-8.2) g/dL Albumin 3.0 L (3.5-5.0) g/dL Crossmatch Assessment and Plan Assessment: Assessment and plan * S/p fall, with blood loss anemia, suspect retroperitoneal bleed from fall * End-stage renal disease on hemodialysis * Hypovolemic shock from blood loss * Evaded troponin type II TN * Chronic atrial fibrillation * Valvular heart disease with aortic stenosis * History of hypotension on midodrine * History of renal transplant * Regards to fall, will maintain fall precautions, patient had a CT chest abdomen and pelvis done on 05/28/2023, will continue to monitor. Suspect soft tissue contusion * In regards to end-stage renal disease on hemodialysis nephrology consulted, continue patient on midodrine * Regards to history of atrial fibrillation continue on telemonitoring, continue amiodarone, cardiology consulted * In regards to blood loss anemia patient given 2 unit of packed RBC follow-up H&H ordered, hemoglobin around 7 * Regards to shock continue patient was on Levophed, weaned off Levophed, blood pressure remained stable will be transferred out of medical ICU * CODE STATUS is full code Time with Patient: Greater than 30
[2023-06-01 23:38] LABS: Anisocytosis Slight; HCT 23.3 % (39.0-53.0); HGB 7.6 gm/dL (13.0-17.5); Hypochromasia Slight; MCH 31.7 pg (25.0-35.0); MCHC 32.6 g/dL (31.0-37.0); MCV 97.2 fL (80.0-100.0); Macrocytosis Slight; Mean Platelet Volume 8.7; Platelet Count 103 k/uL (150-450); Poikilocytosis Slight; RBC 2.39 m/uL (4.30-5.90); RDW 16.2 % (11.5-15.5); WBC 4.5 k/uL (3.8-10.6)
[2023-06-02 04:33] LABS: Basophils % (A) 0 %; Eosinophils # (A) 0.1 k/uL (0-0.7); Eosinophils % (A) 1 %; HCT 23.4 % (39.0-53.0); HGB 7.5 gm/dL (13.0-17.5); Hypochromasia Slight; Lymphocytes # (A) 1.2 k/uL (1.0-4.8); Lymphocytes % (A) 30 %; MCH 31.4 pg (25.0-35.0); MCHC 31.8 g/dL (31.0-37.0); MCV 98.5 fL (80.0-100.0); Macrocytosis Slight; Mean Platelet Volume 8.7; Monocytes # (A) 0.3 k/uL (0-1.0); Monocytes % (A) 7 %; Neutrophils # (A) 2.4 k/uL (1.3-7.7); Neutrophils % (A) 60 %; Platelet Count 108 k/uL (150-450); RBC 2.38 m/uL (4.30-5.90); WBC 3.9 k/uL (3.8-10.6)
[2023-06-02 04:57] LABS: African American GFR (CKD) 8 (>60 ml/min/1.73 sqM); Anion Gap 9 mmol/L; Blood Urea Nitrogen 57 mg/dL (9-20); Calcium 8.8 mg/dL (8.4-10.2); Carbon Dioxide 24 mmol/L (22-30); Chloride 101 mmol/L (98-107); Glucose 88 mg/dL (74-99); Non-African American GFR(CKD) 7 (>60 ml/min/1.73 sqM); Potassium 4.4 mmol/L (3.5-5.1); Sodium 134 mmol/L (137-145)
--- NOTE | 2023-06-02 07:07 | P.PN ---
Subjective Progress Note Date: 06/02/23 Principal diagnosis: Paroxysmal atrial fibrillation The patient is a pleasant 52-year-old gentleman with a past medical history significant for end-stage renal disease on hemodialysis as well as valvular heart disease with known aortic stenosis and mitral regurgitation both were moderate on the last echocardiogram as well as history of anemia and history of hematuria and multiple comorbid conditions. The patient was admitted to the hospital after he fell at home with no loss of consciousness but lost the balance. He developed a large hematoma on the lower back. We consulted to see the patient because of abnormal troponin which was felt to be related to type II myocardial infarction because of severe anemia and also because of renal failure. June 02, 2023 The patient was seen and evaluated this morning. He reports no pain in the chest and no shortness of breath and no any cardiovascular symptoms at this point. He continues to be on dialysis. His hemoglobin this morning is 7.5. He continues to be on amiodarone which need to be tapered down. Beside that he is in and out atrial fibrillation but his heart rate has been under good control on the current medical regimen once he goes into atrial fibrillation otherwise he is in sinus mechanism most of the time. He is not on any oral anticoagulation at this point because of the severe anemia and history of hematuria as well. He need to be evaluated for left atrial bandage closure device. The examination revealed irregular rhythm with a systolic murmur at the right and left upper sternal border consistent with aortic stenosis murmur with a clear breathing sounds bilaterally and mild bilateral lower extremities edema Assessment Paroxysmal atrial fibrillation History of hematuria Severe anemia End-stage renal disease on dialysis Valvular heart disease Multiple comorbid conditions Plan Continue the current medical regimen Taper down the dose of amiodarone Avoid any oral anticoagulation at this point Consider the patient to be evaluated for left atrial bandage closure device Follow-up with the patient Objective - Vital Signs Vital signs: Vital Signs Temp 98.1 F 06/02/23 04:00 Pulse 53 L 06/02/23 04:00 Resp 16 06/02/23 04:00 BP 146/87 06/02/23 04:00 Pulse Ox 99 06/02/23 00:00 FiO2 Intake & Output 06/01/23 06/02/23 06/02/23 18:59 06:59 18:59 Intake Total 400 150 Output Total 0 0 Balance 400 150 Weight 87.6 kg Intake: Oral 400 150 Output: Urine 0 0 - Labs CBC & Chem 7: 06/02/23 04:17 06/02/23 04:17 Labs: Abnormal Lab Results - Last 24 Hours (Table) 06/01/23 06/02/23 06/02/23 Range/Units 23:20 04:17 04:17 RBC 2.39 L 2.38 L (4.30-5.90) m/uL Hgb 7.6 L 7.5 L (13.0-17.5) gm/dL Hct 23.3 L 23.4 L (39.0-53.0) % RDW 16.2 H 16.0 H (11.5-15.5) % Plt Count 103 L 108 L (150-450) k/uL Sodium 134 L (137-145) mmol/L BUN 57 H (9-20) mg/dL Creatinine 8.34 H* (0.66-1.25) mg/dL
[2023-06-02 08:32] LABS: HCT 22.9 % (39.0-53.0); HGB 7.2 gm/dL (13.0-17.5); Hypochromasia Slight; MCH 31.2 pg (25.0-35.0); MCHC 31.6 g/dL (31.0-37.0); MCV 98.6 fL (80.0-100.0); Macrocytosis Slight; Mean Platelet Volume 8.2; Platelet Count 114 k/uL (150-450); RBC 2.33 m/uL (4.30-5.90); RDW 15.6 % (11.5-15.5); WBC 3.4 k/uL (3.8-10.6)
--- NOTE | 2023-06-02 11:05 | P.PN ---
Subjective Patient is seen for follow-up for end-stage renal disease. He is currently seen on hemodialysis. Tolerating treatment well. Hemoglobin 7.2 Objective - Vital Signs Vital signs: Vital Signs Temp 98.1 F 06/02/23 04:00 Pulse 80 06/02/23 08:00 Resp 12 06/02/23 08:00 BP 150/72 06/02/23 08:00 Pulse Ox 99 06/02/23 00:00 FiO2 Intake & Output 06/01/23 06/02/23 06/02/23 18:59 06:59 18:59 Intake Total 400 150 Output Total 0 0 0 Balance 400 150 0 Weight 87.6 kg Intake: Oral 400 150 Output: Urine 0 0 0 - Exam Patient is awake, comfortable, no acute distress Alert oriented 3 Examination of the heart S1 and S2 Examination of the lungs bilateral breath sounds are heard Abdomen is soft nontender Examination of lower extremity shows edema 1+ right leg and 2+ left leg. Right femoral dialysis catheter [employer] exam grossly intact - Labs CBC & Chem 7: 06/02/23 08:21 06/02/23 04:17 Labs: Abnormal Lab Results - Last 24 Hours (Table) 06/01/23 06/02/23 06/02/23 Range/Units 23:20 04:17 04:17 WBC (3.8-10.6) k/uL RBC 2.39 L 2.38 L (4.30-5.90) m/uL Hgb 7.6 L 7.5 L (13.0-17.5) gm/dL Hct 23.3 L 23.4 L (39.0-53.0) % RDW 16.2 H 16.0 H (11.5-15.5) % Plt Count 103 L 108 L (150-450) k/uL Sodium 134 L (137-145) mmol/L BUN 57 H (9-20) mg/dL Creatinine 8.34 H* (0.66-1.25) mg/dL 06/02/23 Range/Units 08:21 WBC 3.4 L (3.8-10.6) k/uL RBC 2.33 L (4.30-5.90) m/uL Hgb 7.2 L (13.0-17.5) gm/dL Hct 22.9 L (39.0-53.0) % RDW 15.6 H (11.5-15.5) % Plt Count 114 L (150-450) k/uL Sodium (137-145) mmol/L BUN (9-20) mg/dL Creatinine (0.66-1.25) mg/dL Assessment and Plan Assessment: 1. End-stage renal disease maintained on home hemodialysis 4 days per week M///. HD yesterday. Femoral dialysis catheter. 2. Acute blood loss anemia with ESRD. No obvious bleeding noted. Patient has significant bruises. 3. Hemorrhagic shock maintained on Levophed. 4. Chronic kidney disease mineral bone disease maintained on Calcitriol. 5. Anemia of chronic kidney disease. Iron replete. 6. Chronic hypotension managed on midodrine and Florinef Plan: Maintain hemodialysis on Friday schedule Add Luis Alfredo
--- NOTE | 2023-06-02 12:35 | P.PN ---
Subjective Progress Note Date: 06/02/23 This is a pleasant 52-year-old male patient on today's evaluation of 06/02/2023, the patient is being seen for a follow-up. The patient is complaining of pain in his left knee and the left knee is slightly swollen. Otherwise, he has limited mobility. He has limited vision. He is on dialysis and the patient has a permacath in his right femoral vein and is undergoing hemodialysis this morning. No major respiratory complaints. No cough or sputum production or chest tightness or wheezing. No hypotension. Hemoglobin remained stable. On today's blood work, the patient's white cell count is at 3.4 with a hemoglobin of 7.2 and a platelet count of 114. The creatinine today is at 8.3 with a BUN of 57 and a sodium levels at 134 with a potassium level of 4.4. The patient has been on long-term prednisone 10 mg p.o. daily. He is post renal transplant and the prednisone has been capped posttransplantation. I think he has a component of steroid dependence. Rest of the medication remain unchanged. Note that the patient has multiple medical problems and comorbidities. He has chronic A-fib, current rhythm is sinus. He has history of seizure disorder and hypothyroidism and end-stage renal disease and currently is hemodialysis. He is undergone previous kidney transplantation that subsequently failed and the patient has been on dialysis for many years. CAT scan of the chest was done on 05/30/2023 following his fall showed no evidence of any pneumothorax. The patient has extensive bruising over the left lateral abdomen, flank area and back. The area remains unchanged. He is currently on no pressors. He typically undergoes hemodialysis 3 times a week MWF and 4 times a week at home Friday, Friday, Friday and Saturdays. He is legally blind. Objective - Vital Signs Vital signs: Vital Signs Temp 98.1 F 06/02/23 04:00 Pulse 53 L 06/02/23 04:00 Resp 16 06/02/23 04:00 BP 146/87 06/02/23 04:00 Pulse Ox 99 06/02/23 00:00 FiO2 Intake & Output 06/01/23 06/02/23 06/02/23 18:59 06:59 18:59 Intake Total 400 150 Output Total 0 0 Balance 400 150 Weight 87.6 kg Intake: Oral 400 150 Output: Urine 0 0 - Exam No acute distress, oriented 3. Currently on room air. Saturations are 98%. No respiratory distress at rest. Head exam was generally normal. There was no scleral icterus or corneal arcus. Mucous membranes were moist. HEENT examination is grossly unremarkable. Mucous membranes are moist. No oral lesions. Neck supple. Full range of motion. No adenopathy thyromegaly or neck vein distention. Cardiovascular examination reveals an irregular rhythm. S1-S2 normal. No S3 or S4. No discernible murmur noted. Heart sounds are distant. Lungs reveal clear breath sounds. Breath sounds are equal bilaterally. No adventitious lung sounds including wheezes rhonchi or crackles. Abdomen is soft, with bowel sounds. No masses or tenderness. The patient has a femoral permacath and exit site is dry clean and intact Extremities are intact. No cyanosis clubbing or edema. The left knee is quite swollen and there is an effusion Skin reveals multiple large ecchymoses. Neurologic examination is brief but nonfocal. - Labs CBC & Chem 7: 06/02/23 08:21 06/02/23 04:17 Labs: Abnormal Lab Results - Last 24 Hours (Table) 06/01/23 06/02/23 06/02/23 Range/Units 23:20 04:17 04:17 WBC (3.8-10.6) k/uL RBC 2.39 L 2.38 L (4.30-5.90) m/uL Hgb 7.6 L 7.5 L (13.0-17.5) gm/dL Hct 23.3 L 23.4 L (39.0-53.0) % RDW 16.2 H 16.0 H (11.5-15.5) % Plt Count 103 L 108 L (150-450) k/uL Sodium 134 L (137-145) mmol/L BUN 57 H (9-20) mg/dL Creatinine 8.34 H* (0.66-1.25) mg/dL 06/02/23 Range/Units 08:21 WBC 3.4 L (3.8-10.6) k/uL RBC 2.33 L (4.30-5.90) m/uL Hgb 7.2 L (13.0-17.5) gm/dL Hct 22.9 L (39.0-53.0) % RDW 15.6 H (11.5-15.5) % Plt Count 114 L (150-450) k/uL Sodium (137-145) mmol/L BUN (9-20) mg/dL Creatinine (0.66-1.25) mg/dL Assessment and Plan Plan: Fall with a large ecchymotic area involving the left lateral abdomen extending to his back in the area remains unchanged and hemoglobin remained stable. Generalized weakness and frequent falls related to being legally blind and comorbidities Left knee pain/swelling. X-ray of the knee 05/28/2023 showed no evidence of any fracture. There is ongoing swelling and effusion in the left knee joint. He continues to complain of pain and having difficulties with mobility Acute on chronic anemia with presenting h that was done onemoglobin 6.1. Status post 2 units of packed red blood cells. The hemoglobin has remained stable over the past 48 hours and the most recent hemoglobin is at 7.2 Hypotension secondary to above requiring pressor support, resolved. Acute hypoxic respiratory failure secondary to above, recovered and the patient is currently on room air oxygen End stage chronic kidney disease, currently receiving hemodialysis. He has a permacth in the right femoral and has been receiving since 2018 History of kidney transplant in 1998. Chronic atrial fibrillation, not anticoagulated due to frequent falls and anemia. He is in sinus rhythm Severely calcified aortic valve, moderate mitral calcification with mild to moderate mitral regurgitation. Legally blind. History of seizure disorder. Hypothyroidism, post thyroidectomy. Plan Monitor hemoglobin Monitor hemodynamics and the patient is currently off pressors Will ask Ortho to reevaluate the left knee Continue hemodialysis Monitor electrolytes Continue monitoring the a.m. chemotic area over the left lateral abdomen and flank and back area Will follow
[2023-06-02] MEDS: DARBEPOETIN ALFA 60 MCG/0.3 ML SYRINGE SQ SCH (13:14)
[2023-06-03 04:35] LABS: Basophils % (A) 0 %; Eosinophils % (A) 1 %; HCT 23.7 % (39.0-53.0); HGB 7.5 gm/dL (13.0-17.5); Hypochromasia Slight; Lymphocytes # (A) 0.5 k/uL (1.0-4.8); Lymphocytes % (A) 19 %; MCH 30.9 pg (25.0-35.0); MCHC 31.4 g/dL (31.0-37.0); MCV 98.2 fL (80.0-100.0); Macrocytosis Slight; Mean Platelet Volume 7.9; Monocytes # (A) 0.2 k/uL (0-1.0); Monocytes % (A) 7 %; Neutrophils % (A) 70 %; Platelet Count 122 k/uL (150-450); RBC 2.42 m/uL (4.30-5.90); RDW 15.6 % (11.5-15.5); WBC 2.8 k/uL (3.8-10.6)
[2023-06-03 04:47] LABS: African American GFR (CKD) 10 (>60 ml/min/1.73 sqM); Anion Gap 10 mmol/L; Blood Urea Nitrogen 39 mg/dL (9-20); Calcium 8.5 mg/dL (8.4-10.2); Carbon Dioxide 25 mmol/L (22-30); Chloride 99 mmol/L (98-107); Glucose 89 mg/dL (74-99); Non-African American GFR(CKD) 9 (>60 ml/min/1.73 sqM); Sodium 134 mmol/L (137-145)
[2023-06-03 04:53] LABS: Potassium 3.6 mmol/L (3.5-5.1)
--- NOTE | 2023-06-03 09:13 | P.PN ---
Subjective Progress Note Date: 06/02/23 52-year-old gentleman with past medical history of end-stage renal disease on hemodialysis, doing home dialysis, history of atrial fibrillation, seizure disorder, history of anemia who was recently in ER after a fall on 05/28/2023. * During previous encounter patient had a CT chest CT pelvis CT lower extremity CT thoracic spine done which was negative for acute fracture, multilevel thoracic spondylosis noted. CT pelvis was done which was negative for acute fracture or dislocation, mild deformity of coccyx was noted subcutaneous fat stranding noted left iliac crest likely secondary to contusion small to moderate left knee effusion noted soft tissue edema noted in pelvis and lower extremity * Patient presented to the emergency for follow-up and low blood pressure, patient was noted to have hemoglobin of 6.1 baseline hemoglobin is greater than 8. Patient was noted to have hypovolemic shock and was transferred to medical ICU * Patient was started on IV Levophed consultation was obtained from cardiology and medical ICU team * Initial troponin obtained 0.052, basic metabolic panel showed sodium of 139 potassium 3.9 carbon dioxide 24 BUN 55 creatinine 9.01 total protein 5.3 albumin 3.3 * Serial EKGs were obtained which showed atrial fibrillation with controlled ventricular response * 06/01/23: Patient seen and evaluated bedside, patient has been weaned off Levophed, hemoglobin remains around 7. Patient does have flank bruises likely retroperitoneal bleed continue to monitor H&H 06/02/2023 Patient is seen and evaluated in follow-up continues to be in the ICU with multiple medical consultations following. Patient currently receiving dialysis and reports he follows with Dr. Aldridge outpatient and is maintained on Friday and Friday scheduling. Patient also being followed by cardiology with discussion of possible Watchman device outpatient. Patient reporting significant left knee pain and bruising noted with significant swelling status post fall prior to admission. Orthopedics has been consulted for evaluation of this left knee. Imaging with no reported fractures noted. Patient is afebrile with no reports of chest pain or shortness of breath. Hemoglobin is stable at 7.2 today and no active bleeding noted. Review of systems: Constitutional: No reports of fatigue, fever, or chills Cardiovascular: No reports of chest pain or palpitations Respiratory: No reports of shortness of breath or cough GI: No reports of nausea, vomiting, or diarrhea : No reports of dysuria or retention Neurovascular: reports of generalized weakness and significant left knee pain and swelling All medications have been reviewed PHYSICAL EXAMINATION: GENERAL: The patient is alert and oriented x3, ill appearance, legally blind right femoral hemodialysis access currently undergoing hemodialysis, appears older than stated age HEENT: Pupils are round and equally reacting to light. EOMI. No scleral icterus. CARDIOVASCULAR: S1 and S2 present. No murmurs, rubs, or gallops. PULMONARY: Chest is clear to auscultation, no wheezing or crackles. ABDOMEN: Soft, nontender, nondistended, normoactive bowel sounds. No palpable organomegaly. MUSCULOSKELETAL: No joint swelling or deformity. EXTREMITIES: No cyanosis, clubbing, or pedal edema. Left knee with significant bruising and swelling noted painful on palpation NEUROLOGICAL: Gross neurological examination did not reveal any focal deficits. Diffusely weak SKIN: Bilateral flank bruising noted Assessment: S/p fall, with blood loss anemia, suspect retroperitoneal bleed from fall * End-stage renal disease on hemodialysis * Hypovolemic shock from blood loss * Evaded troponin type II TX * Chronic atrial fibrillation * Valvular heart disease with aortic stenosis * History of hypotension on midodrine * History of renal transplant, with failure maintained on hemodialysis and reports does this at home Friday and Saturdays * Legally blind * Left knee pain with bruising and swelling, concerns for possible effusion status post fall Plan: * Regards to fall, will maintain fall precautions, patient had a CT chest abdomen and pelvis done on 05/28/2023, will continue to monitor. Suspect soft tissue contusion, other imaging was negative for acute fracture. Patient continuing to have left knee pain with significant swelling and bruising noted. Orthopedics consulted and appreciate input and recommendations as there may be an effusion that needs to be drained there imaging was negative. * In regards to end-stage renal disease on hemodialysis nephrology following continued on hemodialysis and currently receiving today. Patient reports he does this at home and is maintained on Friday/Friday/Friday/Friday schedule an outpatient follow-up with Dr. Pride, continue patient on midodrine * Regards to history of atrial fibrillation continue on telemonitoring, continue amiodarone, cardiology following adjustments to medications done, currently rate controlled * In regards to blood loss anemia patient was given 2 unit of packed RBC follow- up hemoglobin is 7.2 today. No active bleeding noted * Regards to shock, currently off pressor support and blood pressure remains stable at this time being considered for transfer out of the ICU to stepdown for continued monitoring * Patient having significant left knee pain with bruising and swelling noted awaiting orthopedic consultation. No fractures noted. Patient reports unable to bear weight due to extensive left knee pain and weakness * Recommend PT/OT therapy evaluation and discussed possible ECF. case management is following * CODE STATUS is full code * Due to multiple complex medical issues, prognosis is guarded The impression and plan of care has been dictated by Donna Taylor, Nurse Practitioner as directed. Dr. Venita MD I have performed a history and examination and MDM of this patient, discussed the same with the dictator, and agree with the dictator's assessment and plan as written ,documented as a scribe. Based on total visit time, I have performed more than 50% of the visit. Objective - Vital Signs Vital signs: Vital Signs Temp 97.9 F 06/02/23 12:00 Pulse 101 H 06/02/23 12:00 Resp 13 06/02/23 12:00 BP 140/70 06/02/23 12:00 Pulse Ox 94 L 06/02/23 12:00 FiO2 Intake & Output 06/01/23 06/02/23 06/02/23 18:59 06:59 18:59 Intake Total 400 150 500 Output Total 0 0 1700 Balance 400 150 -1200 Weight 87.6 kg Intake: Oral 400 150 Hemodialysis 500 Output: Urine 0 0 0 Hemodialysis 1700 - Labs CBC & Chem 7: 06/03/23 03:53 06/03/23 03:53 Labs: Abnormal Lab Results - Last 24 Hours (Table) 06/01/23 06/02/23 06/02/23 Range/Units 23:20 04:17 04:17 WBC (3.8-10.6) k/uL RBC 2.39 L 2.38 L (4.30-5.90) m/uL Hgb 7.6 L 7.5 L (13.0-17.5) gm/dL Hct 23.3 L 23.4 L (39.0-53.0) % RDW 16.2 H 16.0 H (11.5-15.5) % Plt Count 103 L 108 L (150-450) k/uL Sodium 134 L (137-145) mmol/L BUN 57 H (9-20) mg/dL Creatinine 8.34 H* (0.66-1.25) mg/dL 06/02/23 Range/Units 08:21 WBC 3.4 L (3.8-10.6) k/uL RBC 2.33 L (4.30-5.90) m/uL Hgb 7.2 L (13.0-17.5) gm/dL Hct 22.9 L (39.0-53.0) % RDW 15.6 H (11.5-15.5) % Plt Count 114 L (150-450) k/uL Sodium (137-145) mmol/L BUN (9-20) mg/dL Creatinine (0.66-1.25) mg/dL
--- NOTE | 2023-06-03 10:27 | P.PN ---
Subjective Progress Note Date: 06/03/23 This is a pleasant 52-year-old male patient on today's evaluation of 06/02/2023, the patient is being seen for a follow-up. The patient is complaining of pain in his left knee and the left knee is slightly swollen. Otherwise, he has limited mobility. He has limited vision. He is on dialysis and the patient has a permacath in his right femoral vein and is undergoing hemodialysis this morning. No major respiratory complaints. No cough or sputum production or chest tightness or wheezing. No hypotension. Hemoglobin remained stable. On today's blood work, the patient's white cell count is at 3.4 with a hemoglobin of 7.2 and a platelet count of 114. The creatinine today is at 8.3 with a BUN of 57 and a sodium levels at 134 with a potassium level of 4.4. The patient has been on long-term prednisone 10 mg p.o. daily. He is post renal transplant and the prednisone has been capped posttransplantation. I think he has a component of steroid dependence. Rest of the medication remain unchanged. Note that the patient has multiple medical problems and comorbidities. He has chronic A-fib, current rhythm is sinus. He has history of seizure disorder and hypothyroidism and end-stage renal disease and currently is hemodialysis. He is undergone previous kidney transplantation that subsequently failed and the patient has been on dialysis for many years. CAT scan of the chest was done on 05/30/2023 following his fall showed no evidence of any pneumothorax. The patient has extensive bruising over the left lateral abdomen, flank area and back. The area remains unchanged. He is currently on no pressors. He typically undergoes hemodialysis 3 times a week [facility] and 4 times a week at home Friday, Friday, Friday and Saturdays. He is legally blind. On today's evaluation of 3 , the patient is doing well. The patient has no specific complaints. He remains on room air oxygen. No respiratory difficulties. No cough or sputum production or chest tightness or wheezing. Hemodialysis was done yesterday and a total of 1.2 L of fluid was removed. Meanwhile, the patient is still complaining of pain in his left knee and there is some effusion within the left knee joint and this is to be directly addressed by the orthopedic surgeon. Meanwhile, the patient's hemoglobin has remained stable. No evidence of any bleeding. Hemoglobin this morning is at 7.5 with white cell count of 2.8. Platelet count is at 122, BUN is at 39 with a creatinine of 6.7 and a potassium level is at 3.6 with a sodium level of 134. Medications remain unchanged. The patient remains on midodrine for blood pressure support and the patient is on long-term steroids and the patient takes prednisone 10 mg p.o. per day. BP is adequate for now. He is afebrile. Objective - Vital Signs Vital signs: Vital Signs Temp 97.8 F 06/03/23 04:00 Pulse 70 06/03/23 06:00 Resp 35 H 06/03/23 06:00 BP 148/84 06/03/23 04:00 Pulse Ox 95 06/03/23 04:00 FiO2 Intake & Output 06/02/23 06/03/23 06/03/23 18:59 06:59 18:59 Intake Total 500 225 Output Total 1700 0 Balance -1200 225 Weight 87.3 kg Intake: Oral 225 Hemodialysis 500 Output: Urine 0 0 Hemodialysis 1700 Other: # Bowel Movements 1 - Exam No acute distress, oriented 3. Currently on room air. Saturations are 98%. No respiratory distress at rest. Head exam was generally normal. There was no scleral icterus or corneal arcus. Mucous membranes were moist. HEENT examination is grossly unremarkable. Mucous membranes are moist. No oral lesions. Neck supple. Full range of motion. No adenopathy thyromegaly or neck vein distention. Cardiovascular examination reveals an irregular rhythm. S1-S2 normal. No S3 or S4. No discernible murmur noted. Heart sounds are distant. Lungs reveal clear breath sounds. Breath sounds are equal bilaterally. No adventitious lung sounds including wheezes rhonchi or crackles. Abdomen is soft, with bowel sounds. No masses or tenderness. The patient has a femoral permacath and exit site is dry clean and intact Extremities are intact. No cyanosis clubbing or edema. The left knee is quite swollen and there is an effusion Skin reveals multiple large ecchymoses. Neurologic examination is brief but nonfocal. - Labs CBC & Chem 7: 06/03/23 03:53 06/03/23 03:53 Labs: Abnormal Lab Results - Last 24 Hours (Table) 06/02/23 06/03/23 06/03/23 Range/Units 08:21 03:53 03:53 WBC 3.4 L 2.8 L (3.8-10.6) k/uL RBC 2.33 L 2.42 L (4.30-5.90) m/uL Hgb 7.2 L 7.5 L (13.0-17.5) gm/dL Hct 22.9 L 23.7 L (39.0-53.0) % RDW 15.6 H 15.6 H (11.5-15.5) % Plt Count 114 L 122 L (150-450) k/uL Lymphocytes # 0.5 L (1.0-4.8) k/uL Sodium 134 L (137-145) mmol/L BUN 39 H (9-20) mg/dL Creatinine 6.70 H (0.66-1.25) mg/dL Assessment and Plan Plan: Fall with a large ecchymotic area involving the left lateral abdomen extending to his back in the area remains unchanged and hemoglobin remained stable. Generalized weakness and frequent falls related to being legally blind and comorbidities, clinically stable and improving Left knee pain/swelling. X-ray of the knee 05/28/2023 showed no evidence of any fracture. There is ongoing swelling and effusion in the left knee joint. He continues to complain of pain and having difficulties with mobility, awaiting a reevaluation by orthopedic surgery Acute on chronic anemia with presenting h that was done onemoglobin 6.1. Status post 2 units of packed red blood cells. The hemoglobin has remained stable. The ecchymotic area over the left flank and back area remained stable. Hypotension secondary to above requiring pressor support, resolved. Acute hypoxic respiratory failure secondary to above, recovered and the patient is currently on room air oxygen End stage chronic kidney disease, currently receiving hemodialysis. He has a permacth in the right femoral and has been receiving since 2018, last hemodialysis was done yesterday with a total of 1.2 L of fluid removed History of kidney transplant in 1998. Chronic atrial fibrillation, not anticoagulated due to frequent falls and anemia. He is in sinus rhythm Severely calcified aortic valve, moderate mitral calcification with mild to moderate mitral regurgitation. Legally blind. History of seizure disorder. Hypothyroidism, post thyroidectomy. Plan Monitor hemoglobin, which is currently stable Monitor hemodynamics and the patient is currently off pressors Will ask Ortho to reevaluate the left knee, there is an effusion and the patient may possibly benefit from a drainage/arthrocentesis Continue hemodialysis, hemodialysis was completed yesterday Monitor electrolytes Continue monitoring the ecchymotic area over the left lateral abdomen and flank and back area Will follow
--- NOTE | 2023-06-03 11:20 | P.PN ---
Subjective Patient is seen for follow-up for end-stage renal disease. Tolerated hemodialysis well yesterday with UF off 1.2 L. No significant complaints today. Scheduled for hemodialysis in a.m. Objective - Vital Signs Vital signs: Vital Signs Temp 97.7 F 06/03/23 08:00 Pulse 71 06/03/23 08:00 Resp 15 06/03/23 08:00 BP 119/59 06/03/23 08:00 Pulse Ox 95 06/03/23 08:00 FiO2 Intake & Output 06/02/23 06/03/23 06/03/23 18:59 06:59 18:59 Intake Total 500 225 100 Output Total 1700 0 Balance -1200 225 100 Weight 87.3 kg Intake: Oral 225 100 Hemodialysis 500 Output: Urine 0 0 Hemodialysis 1700 Other: # Bowel Movements 1 - Exam Patient is awake, comfortable, no acute distress Alert oriented 3 Examination of the heart S1 and S2 Examination of the lungs bilateral breath sounds are heard Abdomen is soft nontender Examination of lower extremity shows edema 1+ right leg and 2+ left leg. Right femoral dialysis catheter [employer] exam grossly intact - Labs CBC & Chem 7: 06/03/23 03:53 06/03/23 03:53 Labs: Abnormal Lab Results - Last 24 Hours (Table) 06/03/23 06/03/23 Range/Units 03:53 03:53 WBC 2.8 L (3.8-10.6) k/uL RBC 2.42 L (4.30-5.90) m/uL Hgb 7.5 L (13.0-17.5) gm/dL Hct 23.7 L (39.0-53.0) % RDW 15.6 H (11.5-15.5) % Plt Count 122 L (150-450) k/uL Lymphocytes # 0.5 L (1.0-4.8) k/uL Sodium 134 L (137-145) mmol/L BUN 39 H (9-20) mg/dL Creatinine 6.70 H (0.66-1.25) mg/dL Assessment and Plan Assessment: 1. End-stage renal disease maintained on home hemodialysis 4 days per week M/W/F/Sa. Femoral dialysis catheter. 2. Acute blood loss anemia with ESRD. No obvious bleeding noted. Patient has significant bruises. 3. Hemorrhagic shock maintained on Levophed. Mostly bruising and ecchymosis. No active GI bleed noted. 4. Chronic kidney disease mineral bone disease maintained on Calcitriol. 5. Anemia of chronic kidney disease. Iron replete. 6. Chronic hypotension managed on midodrine and Florinef Plan: Maintain hemodialysis on Friday schedule Continue [facility]
--- NOTE | 2023-06-03 14:22 | P.PN ---
Subjective The patient is a pleasant 52-year-old gentleman with a past medical history significant for end-stage renal disease on hemodialysis as well as valvular heart disease with known aortic stenosis and mitral regurgitation both were moderate on the last echocardiogram as well as history of anemia and history of hematuria and multiple comorbid conditions. The patient was admitted to the hospital after he fell at home with no loss of consciousness but lost the balance. He developed a large hematoma on the lower back. We consulted to see the patient because of abnormal troponin which was felt to be related to type II myocardial infarction because of severe anemia and also because of renal failure. June 02, 2023 The patient was seen and evaluated this morning. He reports no pain in the chest and no shortness of breath and no any cardiovascular symptoms at this point. He continues to be on dialysis. His hemoglobin this morning is 7.5. He continues to be on amiodarone which need to be tapered down. Beside that he is in and out atrial fibrillation but his heart rate has been under good control on the current medical regimen once he goes into atrial fibrillation otherwise he is in sinus mechanism most of the time. He is not on any oral anticoagulation at this point because of the severe anemia and history of hematuria as well. He need to be evaluated for left atrial bandage closure device. The examination revealed irregular rhythm with a systolic murmur at the right and left upper sternal border consistent with aortic stenosis murmur with a clear breathing sounds bilaterally and mild bilateral lower extremities edema 06/02 Patient seen and examined. He denies any chest pain or pressure. His hematoma on his back has been stable. He is not on any anticoagulation secondary to severe anemia. He had been predominantly sinus rhythm, sinus bradycardia however had brief episode of A. fib with heart rates in the 80s this morning at approximate 4 AM. He admits he was somewhat symptomatic feeling palpitations during this episode however was fairly mild. He is being scheduled for possible orthopedic surgery drainage of the knee fluid. Assessment Paroxysmal atrial fibrillation History of hematuria Severe anemia End-stage renal disease on dialysis Valvular heart disease Multiple comorbid conditions Plan Continue the current medical regimen Continue with amiodarone taper Avoid any oral anticoagulation at this point given severe anemia Consider BRIGID closure/ Watchman in the future Objective - Vital Signs Vital signs: Vital Signs Temp 98.2 F 06/03/23 13:00 Pulse 71 06/03/23 14:00 Resp 15 06/03/23 14:00 BP 128/53 06/03/23 13:00 Pulse Ox 95 06/03/23 14:00 FiO2 Intake & Output 06/02/23 06/03/23 06/03/23 18:59 06:59 18:59 Intake Total 500 225 100 Output Total 1700 0 Balance -1200 225 100 Weight 87.3 kg Intake: Oral 225 100 Hemodialysis 500 Output: Urine 0 0 Hemodialysis 1700 Other: # Bowel Movements 1 - Labs CBC & Chem 7: 06/03/23 03:53 06/03/23 03:53 Labs: Abnormal Lab Results - Last 24 Hours (Table) 06/03/23 06/03/23 Range/Units 03:53 03:53 WBC 2.8 L (3.8-10.6) k/uL RBC 2.42 L (4.30-5.90) m/uL Hgb 7.5 L (13.0-17.5) gm/dL Hct 23.7 L (39.0-53.0) % RDW 15.6 H (11.5-15.5) % Plt Count 122 L (150-450) k/uL Lymphocytes # 0.5 L (1.0-4.8) k/uL Sodium 134 L (137-145) mmol/L BUN 39 H (9-20) mg/dL Creatinine 6.70 H (0.66-1.25) mg/dL
--- NOTE | 2023-06-03 15:25 | P.PN ---
Subjective Progress Note Date: 06/03/23 52-year-old gentleman with past medical history of end-stage renal disease on hemodialysis, doing home dialysis, history of atrial fibrillation, seizure disorder, history of anemia who was recently in ER after a fall on 05/28/2023. * During previous encounter patient had a CT chest CT pelvis CT lower extremity CT thoracic spine done which was negative for acute fracture, multilevel thoracic spondylosis noted. CT pelvis was done which was negative for acute fracture or dislocation, mild deformity of coccyx was noted subcutaneous fat stranding noted left iliac crest likely secondary to contusion small to moderate left knee effusion noted soft tissue edema noted in pelvis and lower extremity * Patient presented to the emergency for follow-up and low blood pressure, patient was noted to have hemoglobin of 6.1 baseline hemoglobin is greater than 8. Patient was noted to have hypovolemic shock and was transferred to medical ICU * Patient was started on IV Levophed consultation was obtained from cardiology and medical ICU team * Initial troponin obtained 0.052, basic metabolic panel showed sodium of 139 potassium 3.9 carbon dioxide 24 BUN 55 creatinine 9.01 total protein 5.3 albumin 3.3 * Serial EKGs were obtained which showed atrial fibrillation with controlled ventricular response * 06/01/23: Patient seen and evaluated bedside, patient has been weaned off Levophed, hemoglobin remains around 7. Patient does have flank bruises likely retroperitoneal bleed continue to monitor H&H 06/02/2023 Patient is seen and evaluated in follow-up continues to be in the ICU with multiple medical consultations following. Patient currently receiving dialysis and reports he follows with Dr. Pride outpatient and is maintained on Friday and Friday scheduling. Patient also being followed by cardiology with discussion of possible Watchman device outpatient. Patient reporting significant left knee pain and bruising noted with significant swelling status post fall prior to admission. Orthopedics has been consulted for evaluation of this left knee. Imaging with no reported fractures noted. Patient is afebrile with no reports of chest pain or shortness of breath. Hemoglobin is stable at 7.2 today and no active bleeding noted. 06/03/2023 Patient is seen in follow-up today being followed by multiple medical consultations. Patient awaiting orthopedic evaluation for continued left knee pain and possible effusion. Anticoagulation remains on hold and likely not a candidate. Hemoglobin is stable with no active bleeding noted. Cardiology following and patient is continued on amiodarone taper and will continue. Patient is a transfer out of the ICU once a bed on 3 S. is available. Will have PT/OT therapy evaluate the patient and discuss further with patient regarding d ischarge planning. Plan is for hemodialysis tomorrow as scheduled. Review of systems: Constitutional: No reports of fatigue, fever, or chills Cardiovascular: No reports of chest pain or palpitations Respiratory: No reports of shortness of breath or cough GI: No reports of nausea, vomiting, or diarrhea : No reports of dysuria or retention Neurovascular: reports of generalized weakness and significant left knee pain and swelling All medications have been reviewed PHYSICAL EXAMINATION: GENERAL: The patient is alert and oriented x3, ill appearance, legally blind, appears older than stated age HEENT: Pupils are round and equally reacting to light. EOMI. No scleral icterus. CARDIOVASCULAR: S1 and S2 present. No murmurs, rubs, or gallops. PULMONARY: Chest is clear to auscultation, no wheezing or crackles. ABDOMEN: Soft, nontender, nondistended, normoactive bowel sounds. No palpable o rganomegaly. MUSCULOSKELETAL: No joint swelling or deformity. EXTREMITIES: No cyanosis, clubbing, or pedal edema. Left knee with significant bruising and swelling noted painful on palpation NEUROLOGICAL: Gross neurological examination did not reveal any focal deficits. Diffusely weak SKIN: Bilateral flank bruising noted Assessment: S/p fall, with blood loss anemia, suspect retroperitoneal bleed from fall * End-stage renal disease on hemodialysis * Hypovolemic shock from blood loss, improved * elevated troponin type II IN * Chronic atrial fibrillation * Valvular heart disease with aortic stenosis * History of hypotension on midodrine * History of renal transplant, with failure maintained on hemodialysis and reports does this at home Friday and Saturdays * Legally blind * Left knee pain with bruising and swelling, concerns for possible effusion status post fall Plan: * Regards to fall, will maintain fall precautions, patient had a CT chest abdomen and pelvis done on 05/28/2023, will continue to monitor. Suspect soft tissue contusion, other imaging was negative for acute fracture. Patient continuing to have left knee pain with significant swelling and bruising noted. Orthopedics consulted and discussing surgical interventions as there may be an effusion that needs to be drained there imaging was negative. * In regards to end-stage renal disease on hemodialysis nephrology following continued on hemodialysis and currently receiving today. Patient reports he does this at home and is maintained on Friday/Friday/Friday/Friday schedule an outpatient follow-up with Dr. Pride, continue patient on midodrine * Regards to history of atrial fibrillation continue on telemonitoring, continue amiodarone taper per cardiology, cardiology following adjustments to med ications, currently rate controlled * In regards to blood loss anemia patient was given 2 unit of packed RBC follow- up hemoglobin is above 7 today. No active bleeding noted * Regards to shock, currently off pressor support and blood pressure remains stable at this time. patient is a transfer out of the ICU to stepdown for continued monitoring * Patient having significant left knee pain with bruising and swelling noted awaiting orthopedic consultation. No fractures noted. Patient reports unable to bear weight due to extensive left knee pain and weakness * Recommend PT/OT therapy evaluation and discussed possible ECF. case management is following awaiting PT/OT therapy notes * CODE STATUS is full code * Due to multiple complex medical issues, prognosis is guarded The impression and plan of care has been dictated by Donna Taylor, Nurse Practitioner as directed. Dr. Venita MD I have performed a history and examination and MDM of this patient, discussed the same with the dictator, and agree with the dictator's assessment and plan as written ,documented as a scribe. Based on total visit time, I have performed more than 50% of the visit. Objective - Vital Signs Vital signs: Vital Signs Temp 98.2 F 06/03/23 13:00 Pulse 71 06/03/23 14:00 Resp 15 06/03/23 14:00 BP 128/53 06/03/23 13:00 Pulse Ox 95 06/03/23 14:00 FiO2 Intake & Output 06/02/23 06/03/23 06/03/23 18:59 06:59 18:59 Intake Total 500 225 100 Output Total 1700 0 Balance -1200 225 100 Weight 87.3 kg Intake: Oral 225 100 Hemodialysis 500 Output: Urine 0 0 Hemodialysis 1700 Other: # Bowel Movements 1 - Labs CBC & Chem 7: 06/03/23 03:53 06/03/23 03:53 Labs: Abnormal Lab Results - Last 24 Hours (Table) 06/03/23 06/03/23 Range/Units 03:53 03:53 WBC 2.8 L (3.8-10.6) k/uL RBC 2.42 L (4.30-5.90) m/uL Hgb 7.5 L (13.0-17.5) gm/dL Hct 23.7 L (39.0-53.0) % RDW 15.6 H (11.5-15.5) % Plt Count 122 L (150-450) k/uL Lymphocytes # 0.5 L (1.0-4.8) k/uL Sodium 134 L (137-145) mmol/L BUN 39 H (9-20) mg/dL Creatinine 6.70 H (0.66-1.25) mg/dL
[2023-06-04 04:12] LABS: Basophils % (A) 0 %; Eosinophils % (A) 1 %; HCT 22.3 % (39.0-53.0); Hypochromasia Slight; Lymphocytes # (A) 0.7 k/uL (1.0-4.8); Lymphocytes % (A) 22 %; MCH 30.7 pg (25.0-35.0); MCHC 31.3 g/dL (31.0-37.0); MCV 98.2 fL (80.0-100.0); Macrocytosis Slight; Mean Platelet Volume 8.7; Monocytes # (A) 0.3 k/uL (0-1.0); Monocytes % (A) 9 %; Neutrophils # (A) 2.3 k/uL (1.3-7.7); Neutrophils % (A) 67 %; Platelet Count 120 k/uL (150-450); RBC 2.27 m/uL (4.30-5.90); RDW 15.5 % (11.5-15.5); WBC 3.4 k/uL (3.8-10.6)
[2023-06-04 04:21] LABS: African American GFR (CKD) 8 (>60 ml/min/1.73 sqM); Anion Gap 11 mmol/L; Blood Urea Nitrogen 58 mg/dL (9-20); Calcium 8.5 mg/dL (8.4-10.2); Carbon Dioxide 23 mmol/L (22-30); Chloride 102 mmol/L (98-107); Glucose 94 mg/dL (74-99); Non-African American GFR(CKD) 7 (>60 ml/min/1.73 sqM); Potassium 3.8 mmol/L (3.5-5.1); Sodium 136 mmol/L (137-145)
--- NOTE | 2023-06-04 11:03 | P.PN ---
Subjective Progress Note Date: 06/04/23 This is a pleasant 52-year-old male patient on today's evaluation of 06/02/2023, the patient is being seen for a follow-up. The patient is complaining of pain in his left knee and the left knee is slightly swollen. Otherwise, he has limited mobility. He has limited vision. He is on dialysis and the patient has a permacath in his right femoral vein and is undergoing hemodialysis this morning. No major respiratory complaints. No cough or sputum production or chest tightness or wheezing. No hypotension. Hemoglobin remained stable. On today's blood work, the patient's white cell count is at 3.4 with a hemoglobin of 7.2 and a platelet count of 114. The creatinine today is at 8.3 with a BUN of 57 and a sodium levels at 134 with a potassium level of 4.4. The patient has been on long-term prednisone 10 mg p.o. daily. He is post renal transplant and the prednisone has been capped posttransplantation. I think he has a component of steroid dependence. Rest of the medication remain unchanged. Note that the patient has multiple medical problems and comorbidities. He has chronic A-fib, current rhythm is sinus. He has history of seizure disorder and hypothyroidism and end-stage renal disease and currently is hemodialysis. He is undergone previous kidney transplantation that subsequently failed and the patient has been on dialysis for many years. CAT scan of the chest was done on 05/30/2023 following his fall showed no evidence of any pneumothorax. The patient has extensive bruising over the left lateral abdomen, flank area and back. The area remains unchanged. He is currently on no pressors. He typically undergoes hemodialysis 3 times a week [facility] and 4 times a week at home Friday, Friday, Friday and Saturdays. He is legally blind. On today's evaluation of 3 , the patient is doing well. The patient has no specific complaints. He remains on room air oxygen. No respiratory difficulties. No cough or sputum production or chest tightness or wheezing. Hemodialysis was done yesterday and a total of 1.2 L of fluid was removed. Meanwhile, the patient is still complaining of pain in his left knee and there is some effusion within the left knee joint and this is to be directly addressed by the orthopedic surgeon. Meanwhile, the patient's hemoglobin has remained stable. No evidence of any bleeding. Hemoglobin this morning is at 7.5 with white cell count of 2.8. Platelet count is at 122, BUN is at 39 with a creatinine of 6.7 and a potassium level is at 3.6 with a sodium level of 134. Medications remain unchanged. The patient remains on midodrine for blood pressure support and the patient is on long-term steroids and the patient takes prednisone 10 mg p.o. per day. BP is adequate for now. He is afebrile. On today's evaluation of 06/04/2023, the patient is being seen for a follow-up. No specific complaints. Undergoing hemodialysis today. Hemoglobin today is at 7.0. No evidence of any acute bleeding. The patient is on room air oxygen. The patient is calm and comfortable. No respiratory difficulties. No other significant events overnight. Remains on 10 mg of prednisone on a daily basis. The white cell count is at 3.4 with a platelet count of 120. BUN is at 58 with a creatinine of 8.5 and a sodium levels at 136 with a potassium level of 3.8. No altered mentation. No chest pain. No other complaints otherwise for now. Objective - Vital Signs Vital signs: Vital Signs Temp 97.3 F L 06/04/23 04:00 Pulse 71 06/04/23 04:00 Resp 21 06/04/23 04:00 BP 108/65 06/04/23 04:00 Pulse Ox 92 L 06/04/23 04:00 FiO2 Intake & Output 06/03/23 06/04/23 06/04/23 18:59 06:59 18:59 Intake Total 200 150 Output Total 0 Balance 200 150 Weight 87 kg Intake: Oral 200 150 Output: Urine 0 Other: # Bowel Movements 1 - Exam No acute distress, oriented 3. Currently on room air. Saturations are 98%. No respiratory distress at rest. Head exam was generally normal. There was no scleral icterus or corneal arcus. Mucous membranes were moist. HEENT examination is grossly unremarkable. Mucous membranes are moist. No oral lesions. Neck supple. Full range of motion. No adenopathy thyromegaly or neck vein distention. Cardiovascular examination reveals an irregular rhythm. S1-S2 normal. No S3 or S4. No discernible murmur noted. Heart sounds are distant. Lungs reveal clear breath sounds. Breath sounds are equal bilaterally. No adventitious lung sounds including wheezes rhonchi or crackles. Abdomen is soft, with bowel sounds. No masses or tenderness. The patient has a femoral permacath and exit site is dry clean and intact Extremities are intact. No cyanosis clubbing or edema. The left knee is quite swollen and there is an effusion Skin reveals multiple large ecchymoses. Neurologic examination is brief but nonfocal. - Labs CBC & Chem 7: 06/04/23 03:51 06/04/23 03:51 Labs: Abnormal Lab Results - Last 24 Hours (Table) 06/04/23 06/04/23 Range/Units 03:51 03:51 WBC 3.4 L (3.8-10.6) k/uL RBC 2.27 L (4.30-5.90) m/uL Hgb 7.0 L (13.0-17.5) gm/dL Hct 22.3 L (39.0-53.0) % Plt Count 120 L (150-450) k/uL Lymphocytes # 0.7 L (1.0-4.8) k/uL Sodium 136 L (137-145) mmol/L BUN 58 H (9-20) mg/dL Creatinine 8.52 H* (0.66-1.25) mg/dL Assessment and Plan Plan: Fall with a large ecchymotic area involving the left lateral abdomen extending to his back in the area remains unchanged and hemoglobin remained stable. Generalized weakness and frequent falls related to being legally blind and comorbidities, clinically stable and improving Left knee pain/swelling. X-ray of the knee 05/28/2023 showed no evidence of any fracture. There is ongoing swelling and effusion in the left knee joint. He continues to complain of pain and having difficulties with mobility, awaiting a reevaluation by orthopedic surgery Acute on chronic anemia, hemoglobin today is at 7.0 and the ecchymotic area over the left flank and back area remained stable. Hypotension secondary to above requiring pressor support, resolved. Acute hypoxic respiratory failure secondary to above, recovered and the patient is currently on room air oxygen End stage chronic kidney disease, currently receiving hemodialysis. He has a permacth in the right femoral and has been receiving since 2018, hemodialysis is in progress and the patient has a permacath in his right groin History of kidney transplant in 1998. Chronic atrial fibrillation, not anticoagulated due to frequent falls and anemia. He is in sinus rhythm Severely calcified aortic valve, moderate mitral calcification with mild to m oderate mitral regurgitation. Legally blind. History of seizure disorder. Hypothyroidism, post thyroidectomy. Plan Monitor hemoglobin, which is currently stable, will monitor the level and the mo st recent level is at 7.0 Monitor hemodynamics and the patient is currently off pressors Will ask Ortho to reevaluate the left knee, there is an effusion and the patient may possibly benefit from a drainage/arthrocentesis, patient has not been evaluated by Ortho Continue hemodialysis, hemodialysis is in progress this morning Monitor electrolytes Continue monitoring the ecchymotic area over the left lateral abdomen and flank and back area Will follow, the patient can be transferred out of the intensive care unit following his hemodialysis.
--- NOTE | 2023-06-04 11:05 | P.PN ---
Subjective Patient is seen for follow-up for end-stage renal disease. Tolerated hemodialysis well today. UF 1.8 L Hemoglobin dropped to 7.0 again today. No active bleeding noted. Patient is concerned regarding the continued drop in hemoglobin. Objective - Vital Signs Vital signs: Vital Signs Temp 98.0 F 06/04/23 10:51 Pulse 100 06/04/23 10:51 Resp 18 06/04/23 10:51 BP 127/82 06/04/23 10:51 Pulse Ox 96 06/04/23 10:44 FiO2 Intake & Output 06/03/23 06/04/23 06/04/23 18:59 06:59 18:59 Intake Total 200 150 200 Output Total 0 1800 Balance 200 150 -1600 Weight 87 kg Intake: Oral 200 150 Blood Product 0 Rc As-1 Unit 0 [id number] Hemodialysis 200 Output: Urine 0 0 Hemodialysis 1800 Other: # Bowel Movements 1 - Exam Patient is awake, comfortable, no acute distress Alert oriented 3 Examination of the heart S1 and S2 Examination of the lungs bilateral breath sounds are heard Abdomen is soft nontender Examination of lower extremity shows edema 1+ right leg and 2+ left leg. Right femoral dialysis catheter [employer] exam grossly intact - Labs CBC & Chem 7: 06/04/23 03:51 06/04/23 03:51 Labs: Abnormal Lab Results - Last 24 Hours (Table) 06/04/23 06/04/23 06/04/23 Range/Units 03:51 03:51 09:13 WBC 3.4 L (3.8-10.6) k/uL RBC 2.27 L (4.30-5.90) m/uL Hgb 7.0 L (13.0-17.5) gm/dL Hct 22.3 L (39.0-53.0) % Plt Count 120 L (150-450) k/uL Lymphocytes # 0.7 L (1.0-4.8) k/uL Sodium 136 L (137-145) mmol/L BUN 58 H (9-20) mg/dL Creatinine 8.52 H* (0.66-1.25) mg/dL Crossmatch See Detail Assessment and Plan Assessment: 1. End-stage renal disease maintained on home hemodialysis 4 days per week M/W/F/Sa. Femoral dialysis catheter. 2. Acute blood loss anemia with ESRD. No obvious bleeding noted. Patient has significant bruises, ecchymosis. Stool for occult blood will be ordered and CT abdomen to rule out retroperitoneal bleed 3. Hemorrhagic shock maintained on Levophed. Mostly bruising and ecchymosis. No active GI bleed noted. 4. Chronic kidney disease mineral bone disease maintained on Calcitriol. 5. Anemia of chronic kidney disease. Iron replete. 6. Chronic hypotension managed on midodrine and Florinef Plan: Maintain hemodialysis on Friday schedule Continue Aranesp Check stool for occult blood Check CT abdomen and rule out retroperitoneal bleed
[2023-06-04] MEDS ORDERED: LORazepam 2 MG/ML INJ IV PRN (11:15)
--- NOTE | 2023-06-04 11:45 | P.CNOR ---
History of Present Illness - HPI Consult date: 06/04/23 History of present illness: This is a 52-year-old male who is admitted to the ICU after suspected retroperitoneal bleed and blood loss anemia after a fall on 05/28/2023. Patient's past medical history is significant for end-stage renal disease on hemodialysis, atrial fibrillation, and seizure disorder. Orthopedics is consulted for knee pain and swelling. Patient is seen and evaluated at bedside today. Patient states that about 3 weeks ago he fell and landed on the left knee, but was still able to bear weight on the left leg. Patient states that on 05/28/2023 he was walking upstairs when the left knee buckled and he fell backwards. Patient states that since this injury he has not been able to bear full weight on the left lower extremity, but he is able to walk with a walker and assistance. Patient also complains of pain in the left ankle and foot along with swelling and significant bruising. Patient states that he is unable to move the left knee without significant pain. Patient has low platelets and is not currently on any anticoagulation. Patient denies any fever/chills, numbness, weakness or tingling. Review of Systems See HPI. Past Medical History Past Medical History: Atrial Fibrillation, Dialysis, GERD/Reflux, Renal Disease, Seizure Disorder, Thyroid Disorder Additional Past Medical History / Comment(s): hemodialysis M/W,F,/S at home, diverticulitis,blind, shingles in February, recent falls, kidney transplant in 1998, CAPD when pt was 19y.o, anemia, around 7 grand mal seizures in 2021, nonactive L. arm dialysis graft, R. groin dialysis port. History of Any Multi-Drug Resistant Organisms: None Reported Additional Past Surgical History / Comment(s): fistula placement , thyroidectomy, kidney transplant Past Anesthesia/Blood Transfusion Reactions: Previous Problems w/ Anesthesia Additional Past Anesthesia/Blood Transfusion Reaction / Comm: Pt has his surgery done with local anesthetics d/t general anesthesia causing facial edema and difficulty waking. Blood transfusion had no issues Past Psychological History: No Psychological Hx Reported Smoking Status: Never smoker Past Alcohol Use History: None Reported Past Drug Use History: None Reported - Past Family History Mother Family Medical History: Fibromyalgia, Osteoarthritis (OA) Additional Family Medical History / Comment(s): Lupus Family Family Medical History: No Reported History Additional Family Medical History / Comment(s): ETOH abuse Medications and Allergies Home Medications Medication Instructions Recorded Confirmed Type Levothyroxine Sodium [Synthroid] 50 mcg PO DAILY 12/18/17 05/30/23 History Montelukast [Singulair] 10 mg PO HS 12/18/17 05/30/23 History predniSONE 10 mg PO DAILY 04/25/21 05/30/23 History Atorvastatin [Lipitor] 20 mg PO DAILY 10/15/22 05/30/23 History Midodrine HCl [ProAmatine] 10 mg PO QID 10/15/22 05/30/23 History allopurinoL 100 mg PO DAILY 10/15/22 05/30/23 History calcitrioL 0.25 mcg PO SUTUWETHSA 10/15/22 05/30/23 History calcitrioL 0.5 mcg PO MOFR 10/15/22 05/30/23 History Fludrocortisone [Florinef] 0.1 mg PO DAILY 04/25/23 05/30/23 History Omeprazole [PriLOSEC] 20 mg PO DAILY 04/25/23 05/30/23 History Acetaminophen Tab [Tylenol] 650 mg PO Q4HR PRN tab 04/28/23 05/30/23 Rx Aspirin 81 mg PO DAILY #30 tab 04/28/23 05/30/23 Rx Amiodarone [Cordarone] 200 mg PO TID #90 tab 05/15/23 05/30/23 Rx Metoprolol Tartrate [Lopressor] 25 mg PO TID #90 tab 05/15/23 05/30/23 Rx methocarbamoL [Robaxin-750] 1,500 mg PO TID PRN 7 Days #42 tab 05/28/23 05/30/23 Rx Allergies Allergy/AdvReac Type Severity Reaction Status Date / Time adhesive tape Allergy Itching Verified 05/30/23 15:16 codeine Allergy Rash/Hives Verified 05/30/23 15:16 cyclobenzaprine Allergy Rash/Hives Verified 05/30/23 15:16 [From Flexeril] diphenhydramine Allergy Anaphylaxis Verified 05/30/23 15:16 [From Benadryl] hydromorphone [From Dilaudid] Allergy Rash/Hives Verified 05/30/23 15:16 hydroxyzine Allergy Anaphylaxis Verified 05/30/23 15:16 Iodinated Contrast Media Allergy Anaphylaxis Verified 05/30/23 15:16 [Iodinated Contrast- Oral and IV Dye] pantoprazole [From Protonix] Allergy Anaphylaxis Verified 05/30/23 15:16 Penicillins Allergy Rash/Hives Verified 05/30/23 15:16 potassium chloride Allergy Rash/Hives Verified 05/30/23 15:16 pregabalin [From Lyrica] Allergy Anaphylaxis Verified 05/30/23 15:16 sevelamer Allergy Rash/Hives Verified 05/30/23 15:16 warfarin [From Coumadin] Allergy Anaphylaxis Verified 05/30/23 15:16 acetaminophen [From Vicodin] AdvReac Nausea & Verified 05/30/23 15:16 Vomiting aripiprazole [From Abilify] AdvReac Abdominal Verified 05/30/23 15:16 Pain aztreonam AdvReac Unknown Verified 05/30/23 15:16 calcitriol AdvReac Unknown Verified 05/30/23 15:16 cefadroxil AdvReac Unknown Verified 05/30/23 15:16 enalapril AdvReac Unknown Verified 05/30/23 15:16 hydrocodone [From Vicodin] AdvReac Nausea & Verified 05/30/23 15:16 Vomiting Influenza Virus Vaccines AdvReac Unknown Verified 05/30/23 15:16 levofloxacin [From Levaquin] AdvReac Abdominal Verified 05/30/23 15:16 Pain meloxicam [From Mobic] AdvReac Abdominal Verified 05/30/23 15:16 Pain morphine AdvReac Unknown Verified 05/30/23 15:16 propoxyphene AdvReac Unknown Verified 05/30/23 15:16 Sulfa (Sulfonamide AdvReac Vomiting Verified 05/30/23 15:16 Antibiotics) tramadol AdvReac Unknown Verified 05/30/23 15:16 Physical Examination On exam patient is resting comfortably in bed in no acute distress. Patient is alert and oriented 3. Left knee: There is moderate swelling in the suprapatellar region along with ecchymosis. There is a palpable defect over the quadriceps tendon and patient is unable to actively extend the left knee. Patient is unable to straight leg raise. Patient is able to actively flex the left knee with mild pain. Calf is soft and nontender to palpation. There is significant ecchymosis over the left ankle and foot. Tenderness to palpation over the medial and lateral aspects of the left ankle. Patient has good active motion of the left ankle. There is tenderness to palpation over the dorsal aspect of the left foot and along the lateral aspect of the left foot. Patient is able to actively move the toes of the left foot. Sensation is intact. Left lower extremity is warm and well perfused. Results X-rays of the left knee and femur dated 05/27/2022 are reviewed and are negative. Significant atherosclerosis is noted. A CT report of the left lower extremity dated 05/27/2022 is negative for any acute fracture. - Labs Labs: Abnormal Lab Results - Last 24 Hours (Table) 06/04/23 06/04/23 06/04/23 Range/Units 03:51 03:51 09:13 WBC 3.4 L (3.8-10.6) k/uL RBC 2.27 L (4.30-5.90) m/uL Hgb 7.0 L (13.0-17.5) gm/dL Hct 22.3 L (39.0-53.0) % Plt Count 120 L (150-450) k/uL Lymphocytes # 0.7 L (1.0-4.8) k/uL Sodium 136 L (137-145) mmol/L BUN 58 H (9-20) mg/dL Creatinine 8.52 H* (0.66-1.25) mg/dL Crossmatch See Detail H & H 05/30/23 05/30/23 05/31/23 Range/Units 15:54 22:58 04:44 Hgb 6.1 L* D 6.6 L* 6.0 L* (13.0-17.5) gm/dL Hct 19.2 L* 21.4 L 18.1 L* (39.0-53.0) % 05/31/23 05/31/23 06/01/23 Range/Units 06:24 17:05 02:11 Hgb 6.4 L* 7.8 L 7.0 L (13.0-17.5) gm/dL Hct 20.4 L 24.6 L 22.1 L (39.0-53.0) % 06/01/23 06/02/23 06/02/23 Range/Units 23:20 04:17 08:21 Hgb 7.6 L 7.5 L 7.2 L (13.0-17.5) gm/dL Hct 23.3 L 23.4 L 22.9 L (39.0-53.0) % 06/03/23 06/04/23 Range/Units 03:53 03:51 Hgb 7.5 L 7.0 L (13.0-17.5) gm/dL Hct 23.7 L 22.3 L (39.0-53.0) % Coagulation 05/30/23 05/30/23 Range/Units 15:54 22:58 INR 1.0 0.9 (<1.2) Result Diagrams: 06/04/23 03:51 06/04/23 03:51 Assessment and Plan (1) Left knee pain Current Visit: Yes Status: Acute Code(s): M25.562 - PAIN IN LEFT KNEE SNOMED Code(s): 4507855967 (2) Anemia Current Visit: Yes Status: Acute Code(s): D64.9 - ANEMIA, UNSPECIFIED SNOMED Code(s): 712548339 (3) Chronic renal failure Current Visit: Yes Status: Acute Code(s): N18.9 - CHRONIC KIDNEY DISEASE, UNSPECIFIED SNOMED Code(s): 93204213 (4) Hypovolemic shock Current Visit: Yes Status: Acute Code(s): R57.1 - HYPOVOLEMIC SHOCK SNOMED Code(s): 83791476 (5) Traumatic hematoma of lower back Current Visit: Yes Status: Acute Code(s): S30.0XXA - CONTUSION OF LOWER BACK AND PELVIS, INITIAL ENCOUNTER SNOMED Code(s): 464655675 (6) Fall Current Visit: No Status: Acute Code(s): W19.XXXA - UNSPECIFIED FALL, INITIAL ENCOUNTER SNOMED Code(s): 3370278 Plan: 1. An MRI of the left knee is ordered to rule out tear of the left quadriceps tendon. In regards to a torn quadriceps tendon conservative treatment is recommended at this time with a knee immobilizer and close outpatient follow up. Patient has multiple comorbidities that make him a poor surgical candidate i ncluding end-stage renal disease on hemodialysis, atrial fibrillation and a seizure disorder. Further recommendations pending MRI results. 2. X-rays of the left foot and ankle are pending. 3. Recommend non-weightbearing to the left lower extremity with a walker and knee immobilizer until MRI results are available.
--- NOTE | 2023-06-04 14:20 | P.PN ---
Subjective The patient is a pleasant 52-year-old gentleman with a past medical history significant for end-stage renal disease on hemodialysis as well as valvular heart disease with known aortic stenosis and mitral regurgitation both were moderate on the last echocardiogram as well as history of anemia and history of hematuria and multiple comorbid conditions. The patient was admitted to the hospital after he fell at home with no loss of consciousness but lost the balance. He developed a large hematoma on the lower back. We consulted to see the patient because of abnormal troponin which was felt to be related to type II myocardial infarction because of severe anemia and also because of renal failure. June 02, 2023 The patient was seen and evaluated this morning. He reports no pain in the chest and no shortness of breath and no any cardiovascular symptoms at this point. He continues to be on dialysis. His hemoglobin this morning is 7.5. He continues to be on amiodarone which need to be tapered down. Beside that he is in and out atrial fibrillation but his heart rate has been under good control on the current medical regimen once he goes into atrial fibrillation otherwise he is in sinus mechanism most of the time. He is not on any oral anticoagulation at this point because of the severe anemia and history of hematuria as well. He need to be evaluated for left atrial bandage closure device. The examination revealed irregular rhythm with a systolic murmur at the right and left upper sternal border consistent with aortic stenosis murmur with a clear breathing sounds bilaterally and mild bilateral lower extremities edema 06/02 Patient seen and examined. He denies any chest pain or pressure. His hematoma on his back has been stable. He is not on any anticoagulation secondary to severe anemia. He had been predominantly sinus rhythm, sinus bradycardia however had brief episode of A. fib with heart rates in the 80s this morning at approximate 4 AM. He admits he was somewhat symptomatic feeling palpitations during this episode however was fairly mild. He is being scheduled for possible orthopedic surgery drainage of the knee fluid. 06/03 Patient seen and examined. Patient did have recurrent episodes of A. fib with mild increased heart rates up in the 100-110 range. He has been receiving amiodarone. He did have some chest discomfort with these episodes. He had prior normal Lexiscan stress test from a proximally month ago. In between the A. fib episodes he states he feels relatively well. Orthopedic surgery is evaluating his knee pain. PHYSICAL EXAMINATION Vital signs reviewed. CONSTITUTIONAL: No apparent distress. HEENT: Head is normocephalic. Pupils are equal, round. Sclerae anicteric. Mucous membranes of the mouth are moist. No JVD. No carotid bruit. CHEST EXAMINATION: Lungs are clear to auscultation. No chest wall tenderness is noted on palpation or with deep breathing. HEART EXAMINATION: Regular rate and rhythm. S1, S2 heard. +3/6 murmurs, gallops or rub. ABDOMEN: Soft, nontender. Positive bowel sounds. EXTREMITIES: 2+ peripheral pulses, no lower extremity edema and no calf tendern ess. NEUROLOGIC EXAMINATION: Patient is awake, alert and oriented x3. Assessment Paroxysmal atrial fibrillation History of hematuria Severe anemia End-stage renal disease on dialysis Moderate to severe aortic stenosis Multiple comorbid conditions Chest pain Plan Patient is having occasional chest pain. He had normal Lexiscan stress test 1 month ago. Appears mainly related to anemia as well as some A. fib with RVR. If continues to have chest pain may consider further evaluation of his aortic stenosis or consider heart catheterization. Anemia may be more anemia of chronic disease, chronic kidney disease and no active bleeding however not an ideal interventional candidate. Continue with amiodarone taper Avoid any oral anticoagulation at this point given severe anemia Consider BRIGID closure/ Watchman in the future Objective - Vital Signs Vital signs: Vital Signs Temp 98.0 F 06/04/23 13:20 Pulse 66 06/04/23 13:20 Resp 18 06/04/23 13:20 BP 140/71 06/04/23 13:20 Pulse Ox 95 06/04/23 13:20 FiO2 Intake & Output 06/03/23 06/04/23 06/04/23 18:59 06:59 18:59 Intake Total 200 150 660 Output Total 0 1800 Balance 200 150 -1140 Weight 87 kg Intake: Oral 200 150 150 Blood Product 310 Rc As-1 Unit 310 [id number] Hemodialysis 200 Output: Urine 0 0 Hemodialysis 1800 Other: # Bowel Movements 1 - Labs CBC & Chem 7: 06/04/23 03:51 06/04/23 03:51 Labs: Abnormal Lab Results - Last 24 Hours (Table) 06/04/23 06/04/23 06/04/23 Range/Units 03:51 03:51 09:13 WBC 3.4 L (3.8-10.6) k/uL RBC 2.27 L (4.30-5.90) m/uL Hgb 7.0 L (13.0-17.5) gm/dL Hct 22.3 L (39.0-53.0) % Plt Count 120 L (150-450) k/uL Lymphocytes # 0.7 L (1.0-4.8) k/uL Sodium 136 L (137-145) mmol/L BUN 58 H (9-20) mg/dL Creatinine 8.52 H* (0.66-1.25) mg/dL Crossmatch See Detail
--- NOTE | 2023-06-04 15:30 | P.PN ---
Subjective Progress Note Date: 06/04/23 52-year-old gentleman with past medical history of end-stage renal disease on hemodialysis, doing home dialysis, history of atrial fibrillation, seizure disorder, history of anemia who was recently in ER after a fall on 05/28/2023. * During previous encounter patient had a CT chest CT pelvis CT lower extremity CT thoracic spine done which was negative for acute fracture, multilevel thoracic spondylosis noted. CT pelvis was done which was negative for acute fracture or dislocation, mild deformity of coccyx was noted subcutaneous fat stranding noted left iliac crest likely secondary to contusion small to moderate left knee effusion noted soft tissue edema noted in pelvis and lower extremity * Patient presented to the emergency for follow-up and low blood pressure, patient was noted to have hemoglobin of 6.1 baseline hemoglobin is greater than 8. Patient was noted to have hypovolemic shock and was transferred to medical ICU * Patient was started on IV Levophed consultation was obtained from cardiology and medical ICU team * Initial troponin obtained 0.052, basic metabolic panel showed sodium of 139 potassium 3.9 carbon dioxide 24 BUN 55 creatinine 9.01 total protein 5.3 albumin 3.3 * Serial EKGs were obtained which showed atrial fibrillation with controlled ventricular response * 06/01/23: Patient seen and evaluated bedside, patient has been weaned off Levophed, hemoglobin remains around 7. Patient does have flank bruises likely retroperitoneal bleed continue to monitor H&H 06/02/2023 Patient is seen and evaluated in follow-up continues to be in the ICU with multiple medical consultations following. Patient currently receiving dialysis and reports he follows with Dr. Pride outpatient and is maintained on Friday and Friday scheduling. Patient also being followed by cardiology with discussion of possible Watchman device outpatient. Patient reporting significant left knee pain and bruising noted with significant swelling status post fall prior to admission. Orthopedics has been consulted for evaluation of this left knee. Imaging with no reported fractures noted. Patient is afebrile with no reports of chest pain or shortness of breath. Hemoglobin is stable at 7.2 today and no active bleeding noted. 06/03/2023 Patient is seen in follow-up today being followed by multiple medical consultations. Patient awaiting orthopedic evaluation for continued left knee pain and possible effusion. Anticoagulation remains on hold and likely not a candidate. Hemoglobin is stable with no active bleeding noted. Cardiology following and patient is continued on amiodarone taper and will continue. Patient is a transfer out of the ICU once a bed on 3 S. is available. Will have PT/OT therapy evaluate the patient and discuss further with patient regarding d ischarge planning. Plan is for hemodialysis tomorrow as scheduled. 06/04/2023 Patient is seen and evaluated in follow-up today scheduled to undergo hemodialysis as patient is maintained on Friday/Friday/Friday/Friday schedules and normally does dialysis at home. Hemoglobin is 7.0 today and will transfuse 1 unit of PRBC. Anticoagulation remains on hold. Patient is a downgrade out of ICU once a bed is available. Orthopedics evaluated the patient and ordered MRI of the left knee as well as imaging on the left ankle as patient is reporting significant pain and difficulty with ambulation. Recommending nonweightbearing on the left lower extremity until MRI imaging done. Patient not a surgical candidate at this time and recommending conservative management although would like to rule out a tear on the left knee. Patient is afebrile with no reported chest pain or shortness of breath and reports to feeling well otherwise. Review of systems: Constitutional: No reports of fatigue, fever, or chills Cardiovascular: No reports of chest pain or palpitations Respiratory: No reports of shortness of breath or cough GI: No reports of nausea, vomiting, or diarrhea : No reports of dysuria or retention Neurovascular: reports of generalized weakness and significant left knee and ankle pain, reports swelling has improved All medications have been reviewed PHYSICAL EXAMINATION: GENERAL: The patient is alert and oriented x3, ill appearance, legally blind, appears older than stated age HEENT: Pupils are round and equally reacting to light. EOMI. No scleral icterus. CARDIOVASCULAR: S1 and S2 present. No murmurs, rubs, or gallops. PULMONARY: Chest is clear to auscultation, no wheezing or crackles. ABDOMEN: Soft, nontender, nondistended, normoactive bowel sounds. No palpable o rganomegaly. MUSCULOSKELETAL: No joint swelling or deformity. EXTREMITIES: No cyanosis, clubbing, or pedal edema. Left knee with significant bruising and swelling has improved, left ankle tender on palpation as well NEUROLOGICAL: Gross neurological examination did not reveal any focal deficits. Diffusely weak SKIN: Bilateral flank bruising noted Assessment: S/p fall, with blood loss anemia, suspect retroperitoneal bleed from fall End-stage renal disease on hemodialysis Hypovolemic shock from blood loss, improved elevated troponin type II [place] Chronic atrial fibrillation Valvular heart disease with aortic stenosis History of hypotension on midodrine History of renal transplant, with failure maintained on hemodialysis and reports does this at home Friday and Saturdays Legally blind Left knee pain with bruising and swelling status post fall a few weeks ago, concerns for possible effusion versus tear and scheduled to undergo MRI sometime today Plan: Regards to fall, will maintain fall precautions, patient had a CT chest abdomen and pelvis done on 05/28/2023, will continue to monitor. Suspect soft tissue contusion, other imaging was negative for acute fracture. Patient continuing to have left knee pain with significant swelling and bruising noted. Orthopedics consulted and has placed an order for an MRI of the left knee and also images including x-ray of the ankle as patient is reporting significant pain. Not a surgical candidate recommending conservative management and ruling out possible tear of the knee recommend nonweightbearing until results of MRI In regards to end-stage renal disease on hemodialysis nephrology following continued on hemodialysis and currently receiving today. Patient reports he does this at home and is maintained on Friday/Friday/Friday/Friday schedule an outpatient follow-up with Dr. Pride, continue patient on midodrine Hemoglobin 7.0 with no active bleeding noted will transfuse and follow-up with repeat labs. Regards to history of atrial fibrillation continue on telemonitoring, continue amiodarone taper per cardiology, cardiology following adjustments to medications, currently rate controlled In regards to blood loss anemia patient was given 2 unit of packed RBC follow-up hemoglobin is above 7 today. No active bleeding noted Regards to shock, currently off pressor support and blood pressure remains sta ble at this time. patient is a transfer out of the ICU to stepdown for continued monitoring once a bed is available Recommend PT/OT therapy evaluation and discussed possible ECF. case management is following awaiting PT/OT therapy notes. Patient is to remain nonweightbearing on the left lower extremity until the MRI is resulted per orthopedics CODE STATUS is full code Due to multiple complex medical issues, prognosis is guarded The impression and plan of care has been dictated by Donna Taylor, Nurse Practitioner as directed. Dr. Venita MD I have performed a history and examination and MDM of this patient, discussed the same with the dictator, and agree with the dictator's assessment and plan as written ,documented as a scribe. Based on total visit time, I have performed more than 50% of the visit. Objective - Vital Signs Vital signs: Vital Signs Temp 97.3 F L 06/04/23 04:00 Pulse 71 06/04/23 04:00 Resp 21 06/04/23 04:00 BP 108/65 06/04/23 04:00 Pulse Ox 92 L 06/04/23 04:00 FiO2 Intake & Output 06/03/23 06/04/23 06/04/23 18:59 06:59 18:59 Intake Total 200 150 Output Total 0 Balance 200 150 Weight 87 kg Intake: Oral 200 150 Output: Urine 0 Other: # Bowel Movements 1 - Labs CBC & Chem 7: 06/04/23 03:51 06/04/23 03:51 Labs: Abnormal Lab Results - Last 24 Hours (Table) 06/04/23 06/04/23 Range/Units 03:51 03:51 WBC 3.4 L (3.8-10.6) k/uL RBC 2.27 L (4.30-5.90) m/uL Hgb 7.0 L (13.0-17.5) gm/dL Hct 22.3 L (39.0-53.0) % Plt Count 120 L (150-450) k/uL Lymphocytes # 0.7 L (1.0-4.8) k/uL Sodium 136 L (137-145) mmol/L BUN 58 H (9-20) mg/dL Creatinine 8.52 H* (0.66-1.25) mg/dL
[2023-06-04 19:09] LABS: Anisocytosis Slight; HCT 30.9 % (39.0-53.0); Hypochromasia Slight; MCH 30.2 pg (25.0-35.0); MCHC 31.3 g/dL (31.0-37.0); MCV 96.3 fL (80.0-100.0); Macrocytosis Slight; Mean Platelet Volume 7.9; Platelet Count 147 k/uL (150-450); Poikilocytosis Slight; RBC 3.21 m/uL (4.30-5.90); RDW 17.8 % (11.5-15.5); WBC 4.4 k/uL (3.8-10.6)
[2023-06-04 19:12] LABS: HGB 9.7 gm/dL (13.0-17.5)
--- NOTE | 2023-06-05 06:05 | XR ---
EXAMINATION TYPE: XR ankle limited LT DATE OF EXAM: 06/04/2023 7:12 PM CLINICAL INDICATION:Male, 52 years old with history of pain; [facility] COMPARISON: None TECHNIQUE: 2 views left foot. 2 views left ankle. FINDINGS: Studies are somewhat limited with only 2 views obtained. Osseous mineralization appears appropriate. Ankle mortise is preserved. Talar dome is intact. No acut e fracture lucency or dislocation identified. Mild/moderate degenerative changes. Small to moderate-s ized plantar calcaneal spur. Mild soft tissue prominence especially along the dorsum of the foot sugg esting soft tissue swelling. Moderately heavy arterial vascular calcifications, can be seen in diabet ics. Multiple phleboliths also in the lower leg. IMPRESSION: 1. Mild soft tissue swelling suggested along the dorsum of the foot. 2. No visualized acute fracture or dislocation.
--- NOTE | 2023-06-05 06:05 | XR ---
EXAMINATION TYPE: XR foot limited LT DATE OF EXAM: 06/04/2023 7:12 PM CLINICAL INDICATION:Male, 52 years old with history of pain; pain and swelling and bruising from fall one week ago COMPARISON: None. TECHNIQUE: 2 views left foot. 2 views left ankle. FINDINGS: Studies are somewhat limited with only 2 views obtained. Osseous mineralization appears appropriate. Ankle mortise is preserved. Talar dome is intact. No acut e fracture lucency or dislocation identified. Mild/moderate degenerative changes. Small to moderate-s ized plantar calcaneal spur. Mild soft tissue prominence especially along the dorsum of the foot sugg esting soft tissue swelling. Moderately heavy arterial vascular calcifications, can be seen in diabet ics. Multiple phleboliths also in the lower leg. IMPRESSION: 1. Mild soft tissue swelling suggested along the dorsum of the foot. 2. No visualized acute fracture or dislocation.
[2023-06-05 08:48] LABS: Anisocytosis Slight; Basophils % (A) 1 %; Eosinophils % (A) 1 %; Hypochromasia Moderate; Lymphocytes # (A) 0.9 k/uL (1.0-4.8); Lymphocytes % (A) 26 %; MCH 31.7 pg (25.0-35.0); MCHC 32.9 g/dL (31.0-37.0); MCV 96.2 fL (80.0-100.0); Macrocytosis Slight; Mean Platelet Volume 7.8; Monocytes # (A) 0.3 k/uL (0-1.0); Monocytes % (A) 10 %; Neutrophils % (A) 60 %; Platelet Count 136 k/uL (150-450); Poikilocytosis Slight; RDW 18.3 % (11.5-15.5); WBC 3.3 k/uL (3.8-10.6)
[2023-06-05 08:51] LABS: HGB 8.2 gm/dL (13.0-17.5)
[2023-06-05 08:56] LABS: African American GFR (CKD) 9 (>60 ml/min/1.73 sqM); Anion Gap 12 mmol/L; Blood Urea Nitrogen 44 mg/dL (9-20); Calcium 8.9 mg/dL (8.4-10.2); Carbon Dioxide 23 mmol/L (22-30); Chloride 102 mmol/L (98-107); Glucose 77 mg/dL (74-99); Non-African American GFR(CKD) 8 (>60 ml/min/1.73 sqM); Sodium 137 mmol/L (137-145)
--- NOTE | 2023-06-05 10:09 | P.PN ---
Subjective Patient is seen for follow-up for end-stage renal disease. Tolerated hemodialysis well yesterday UF 1.8 L Status post packed RBCs transfusion yesterday. Hemoglobin is 8.2 g/dL today. Scheduled for hemodialysis in a.m. Objective - Vital Signs Vital signs: Vital Signs Temp 98.2 F 06/04/23 20:00 Pulse 67 06/05/23 04:00 Resp 16 06/05/23 04:00 BP 156/88 06/05/23 04:00 Pulse Ox 96 06/05/23 04:00 FiO2 Intake & Output 06/04/23 06/05/23 06/05/23 18:59 06:59 18:59 Intake Total 1070 0 Output Total 1800 Balance -730 0 Weight 84 kg Intake: Oral 250 0 Blood Product 620 Rc As-1 Unit 310 [id number] Hemodialysis 200 Output: Urine 0 Hemodialysis 1800 - Exam Patient is awake, comfortable, no acute distress Alert oriented 3 Examination of the heart S1 and S2 Examination of the lungs bilateral breath sounds are heard Abdomen is soft nontender Examination of lower extremity shows edema 1+ right leg and 2+ left leg. 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 exam grossly intact - Labs CBC & Chem 7: 06/05/23 07:31 06/05/23 07:31 Labs: Abnormal Lab Results - Last 24 Hours (Table) 06/04/23 06/04/23 06/05/23 Range/Units 09:13 18:45 07:31 WBC 3.3 L (3.8-10.6) k/uL RBC 3.21 L 2.60 L (4.30-5.90) m/uL Hgb 9.7 L D 8.2 L D (13.0-17.5) gm/dL Hct 30.9 L 25.0 L (39.0-53.0) % RDW 17.8 H 18.3 H (11.5-15.5) % Plt Count 147 L 136 L (150-450) k/uL Lymphocytes # 0.9 L (1.0-4.8) k/uL BUN (9-20) mg/dL Creatinine (0.66-1.25) mg/dL Crossmatch See Detail 06/05/23 Range/Units 07:31 WBC (3.8-10.6) k/uL RBC (4.30-5.90) m/uL Hgb (13.0-17.5) gm/dL Hct (39.0-53.0) % RDW (11.5-15.5) % Plt Count (150-450) k/uL Lymphocytes # (1.0-4.8) k/uL BUN 44 H (9-20) mg/dL Creatinine 7.04 H* (0.66-1.25) mg/dL Crossmatch Assessment and Plan Assessment: 1. End-stage renal disease maintained on home hemodialysis 4 days per week M///. Femoral dialysis catheter. 2. Acute blood loss anemia with ESRD. No obvious bleeding noted. Patient has significant bruises, ecchymosis. Stool for occult blood is negative and CT abdomen to rule out retroperitoneal bleed has been ordered. 3. Hemorrhagic shock maintained on Levophed. Mostly bruising and ecchymosis. No active GI bleed noted. 4. Chronic kidney disease mineral bone disease maintained on Calcitriol. 5. Anemia of chronic kidney disease. Iron replete. 6. Chronic hypotension managed on midodrine and Florinef Plan: Maintain hemodialysis on Friday schedule Continue Aranesp Check CT abdomen and rule out retroperitoneal bleed
--- NOTE | 2023-06-05 10:44 | P.PN ---
Subjective Progress Note Date: 06/05/23 This is a 52-year-old male who is admitted for suspected retroperitoneal bleed and blood loss anemia after a fall on 05/28/2023. Patient's past medical history is significant for end-stage renal disease on hemodialysis, atrial fibrillation, and seizure disorder. Orthopedics is following for evaluation of left knee pain and swelling. Patient states that he continues to have difficulty with the left knee, but he denies any new complaints today. Objective - Vital Signs Vital signs: Vital Signs Temp 98.2 F 06/04/23 20:00 Pulse 67 06/05/23 04:00 Resp 16 06/05/23 04:00 BP 156/88 06/05/23 04:00 Pulse Ox 96 06/05/23 04:00 FiO2 Intake & Output 06/04/23 06/05/23 06/05/23 18:59 06:59 18:59 Intake Total 1070 0 Output Total 1800 Balance -730 0 Weight 84 kg Intake: Oral 250 0 Blood Product 620 Rc As-1 Unit 310 [id number] Hemodialysis 200 Output: Urine 0 Hemodialysis 1800 - Exam On exam patient is resting comfortably in bed in no acute distress. Patient is alert and oriented 3. Left knee: There is moderate swelling in the suprapatellar region along with ecchymosis. There is a palpable defect over the quadriceps tendon and patient is unable to actively extend the left knee. Patient is unable to straight leg raise. Patient is able to actively flex the left knee with mild pain. Calf is soft and nontender to palpation. Patient has good active motion of the left ankle. Sensation is intact. Left lower extremity is warm and well perfused. - Labs CBC & Chem 7: 06/05/23 07:31 06/05/23 07:31 Labs: Abnormal Lab Results - Last 24 Hours (Table) 06/04/23 06/04/23 06/05/23 Range/Units 09:13 18:45 07:31 WBC 3.3 L (3.8-10.6) k/uL RBC 3.21 L 2.60 L (4.30-5.90) m/uL Hgb 9.7 L D 8.2 L D (13.0-17.5) gm/dL Hct 30.9 L 25.0 L (39.0-53.0) % RDW 17.8 H 18.3 H (11.5-15.5) % Plt Count 147 L 136 L (150-450) k/uL Lymphocytes # 0.9 L (1.0-4.8) k/uL BUN (9-20) mg/dL Creatinine (0.66-1.25) mg/dL Crossmatch See Detail 06/05/23 Range/Units 07:31 WBC (3.8-10.6) k/uL RBC (4.30-5.90) m/uL Hgb (13.0-17.5) gm/dL Hct (39.0-53.0) % RDW (11.5-15.5) % Plt Count (150-450) k/uL Lymphocytes # (1.0-4.8) k/uL BUN 44 H (9-20) mg/dL Creatinine 7.04 H* (0.66-1.25) mg/dL Crossmatch Assessment and Plan (1) Left knee pain Current Visit: Yes Status: Acute Code(s): M25.562 - PAIN IN LEFT KNEE SNOMED Code(s): 4968505018 (2) Anemia Current Visit: Yes Status: Acute Code(s): D64.9 - ANEMIA, UNSPECIFIED SNOMED Code(s): 612525468 (3) Chronic renal failure Current Visit: Yes Status: Acute Code(s): N18.9 - CHRONIC KIDNEY DISEASE, UNSPECIFIED SNOMED Code(s): 26186760 (4) Hypovolemic shock Current Visit: Yes Status: Acute Code(s): R57.1 - HYPOVOLEMIC SHOCK SNOMED Code(s): 72551746 (5) Traumatic hematoma of lower back Current Visit: Yes Status: Acute Code(s): S30.0XXA - CONTUSION OF LOWER BACK AND PELVIS, INITIAL ENCOUNTER SNOMED Code(s): 920004334 (6) Fall Current Visit: No Status: Acute Code(s): W19.XXXA - UNSPECIFIED FALL, INITIAL ENCOUNTER SNOMED Code(s): 3009925 Plan: 1. An MRI of the left knee is ordered to rule out ruptured left quadriceps tendon. In regards to a torn quadriceps tendon conservative treatment is recommended at this time with a knee immobilizer and close outpatient follow up. Patient has multiple comorbidities that make him a poor surgical candidate including end-stage renal disease on hemodialysis, atrial fibrillation and a seizure disorder. Further recommendations pending MRI results. 2. X-rays of the left foot and ankle are reviewed and are negative for any f racture or dislocation. 3. Recommend non-weightbearing to the left lower extremity with a walker and knee immobilizer until MRI results are available.
--- NOTE | 2023-06-05 12:40 | P.PN ---
Subjective HISTORY OF PRESENT ILLNESS: The patient is a pleasant 52-year-old gentleman with a past medical history significant for end-stage renal disease on hemodialysis as well as valvular heart disease with known aortic stenosis and mitral regurgitation both were moderate on the last echocardiogram as well as history of anemia and history of hematuria and multiple comorbid conditions. The patient was admitted to the hospital after he fell at home with no loss of consciousness but lost the balance. He developed a large hematoma on the lower back. We consulted to see the patient because of abnormal troponin which was felt to be related to type II myocardial infarction because of severe anemia and also because of renal failure. June 02, 2023 The patient was seen and evaluated this morning. He reports no pain in the chest and no shortness of breath and no any cardiovascular symptoms at this point. He continues to be on dialysis. His hemoglobin this morning is 7.5. He continues to be on amiodarone which need to be tapered down. Beside that he is in and out atrial fibrillation but his heart rate has been under good control on the current medical regimen once he goes into atrial fibrillation otherwise he is in sinus mechanism most of the time. He is not on any oral anticoagulation at this point because of the severe anemia and history of hematuria as well. He need to be evaluated for left atrial bandage closure device. The examination revealed irregular rhythm with a systolic murmur at the right and left upper sternal border consistent with aortic stenosis murmur with a clear breathing sounds bilaterally and mild bilateral lower extremities edema 06/02 Patient seen and examined. He denies any chest pain or pressure. His hematoma on his back has been stable. He is not on any anticoagulation secondary to severe anemia. He had been predominantly sinus rhythm, sinus bradycardia however had brief episode of A. fib with heart rates in the 80s this morning at approximate 4 AM. He admits he was somewhat symptomatic feeling palpitations during this episode however was fairly mild. He is being scheduled for possible orthopedic surgery drainage of the knee fluid. 06/03 Patient seen and examined. Patient did have recurrent episodes of A. fib with mild increased heart rates up in the 100-110 range. He has been receiving amiodarone. He did have some chest discomfort with these episodes. He had prior normal Lexiscan stress test from a proximally month ago. In between the A. fib episodes he states he feels relatively well. Orthopedic surgery is evaluating his knee pain. 06/05/2023 Patient examined this morning at the bedside. Patient currently denies shortness of breath. He reports mild chest discomfort. He does report feeling his heart fluttering. Telemetry reveals atrial fibrillation with heart rate around 100. PHYSICAL EXAM: VITAL SIGNS: Reviewed. GENERAL: Well-developed in no acute distress. NECK: Supple. No JVD or thyromegaly LUNGS: Respirations even and unlabored. Lungs essentially clear to auscultation bilaterally. HEART: Irregular rate and rhythm. S1 and S2 heard. Systolic murmur noted. EXTREMITIES: Normal range of motion. No clubbing or cyanosis. Peripheral pulses intact. No lower extremity edema ASSESSMENT: Paroxysmal atrial fibrillation History of hematuria Severe anemia End-stage renal disease on dialysis Moderate to severe aortic stenosis Multiple comorbid conditions Chest pain Status post normal Lexiscan, 1 month ago Atypical chest pain, likely secondary to anemia and/or A-fib with RVR PLAN: Continue current cardiac medications Continue with oral amiodarone Avoid any oral anticoagulation at this point given severe anemia Consider BRIGID closure/Watchman device in the future Further recommendations pending patient course Nurse practitioner note has been reviewed by physician. Signing provider agrees with the documented findings, assessment, and plan of care documented by [employer]CH[employer] as a scribe. Objective - Vital Signs Vital signs: Vital Signs Temp 98.2 F 06/04/23 20:00 Pulse 63 06/05/23 11:54 Resp 16 06/05/23 11:54 BP 149/83 06/05/23 11:54 Pulse Ox 100 06/05/23 11:54 FiO2 Intake & Output 06/04/23 06/05/23 06/05/23 18:59 06:59 18:59 Intake Total 1070 0 Output Total 1800 Balance -730 0 Weight 84 kg Intake: Oral 250 0 Blood Product 620 Rc As-1 Unit 310 [id number] Hemodialysis 200 Output: Urine 0 Hemodialysis 1800 - Labs CBC & Chem 7: 06/05/23 07:31 06/05/23 07:31 Labs: Abnormal Lab Results - Last 24 Hours (Table) 06/04/23 06/04/23 06/05/23 Range/Units 09:13 18:45 07:31 WBC 3.3 L (3.8-10.6) k/uL RBC 3.21 L 2.60 L (4.30-5.90) m/uL Hgb 9.7 L D 8.2 L D (13.0-17.5) gm/dL Hct 30.9 L 25.0 L (39.0-53.0) % RDW 17.8 H 18.3 H (11.5-15.5) % Plt Count 147 L 136 L (150-450) k/uL Lymphocytes # 0.9 L (1.0-4.8) k/uL BUN (9-20) mg/dL Creatinine (0.66-1.25) mg/dL Crossmatch See Detail 06/05/23 Range/Units 07:31 WBC (3.8-10.6) k/uL RBC (4.30-5.90) m/uL Hgb (13.0-17.5) gm/dL Hct (39.0-53.0) % RDW (11.5-15.5) % Plt Count (150-450) k/uL Lymphocytes # (1.0-4.8) k/uL BUN 44 H (9-20) mg/dL Creatinine 7.04 H* (0.66-1.25) mg/dL Crossmatch
[2023-06-05] MEDS: LORazepam 2 MG/ML INJ IV STA (14:00)
--- NOTE | 2023-06-05 16:23 | P.PN ---
Subjective Progress Note Date: 06/05/23 52-year-old gentleman with past medical history of end-stage renal disease on hemodialysis, doing home dialysis, history of atrial fibrillation, seizure disorder, history of anemia who was recently in ER after a fall on 05/28/2023. * During previous encounter patient had a CT chest CT pelvis CT lower extremity CT thoracic spine done which was negative for acute fracture, multilevel thoracic spondylosis noted. CT pelvis was done which was negative for acute fracture or dislocation, mild deformity of coccyx was noted subcutaneous fat stranding noted left iliac crest likely secondary to contusion small to moderate left knee effusion noted soft tissue edema noted in pelvis and lower extremity * Patient presented to the emergency for follow-up and low blood pressure, patient was noted to have hemoglobin of 6.1 baseline hemoglobin is greater than 8. Patient was noted to have hypovolemic shock and was transferred to medical ICU * Patient was started on IV Levophed consultation was obtained from cardiology and medical ICU team * Initial troponin obtained 0.052, basic metabolic panel showed sodium of 139 potassium 3.9 carbon dioxide 24 BUN 55 creatinine 9.01 total protein 5.3 albumin 3.3 * Serial EKGs were obtained which showed atrial fibrillation with controlled ventricular response * 06/01/23: Patient seen and evaluated bedside, patient has been weaned off Levophed, hemoglobin remains around 7. Patient does have flank bruises likely retroperitoneal bleed continue to monitor H&H 06/02/2023 Patient is seen and evaluated in follow-up continues to be in the ICU with multiple medical consultations following. Patient currently receiving dialysis and reports he follows with Dr. Pride outpatient and is maintained on Friday and Friday scheduling. Patient also being followed by cardiology with discussion of possible Watchman device outpatient. Patient reporting significant left knee pain and bruising noted with significant swelling status post fall prior to admission. Orthopedics has been consulted for evaluation of this left knee. Imaging with no reported fractures noted. Patient is afebrile with no reports of chest pain or shortness of breath. Hemoglobin is stable at 7.2 today and no active bleeding noted. 06/03/2023 Patient is seen in follow-up today being followed by multiple medical consultations. Patient awaiting orthopedic evaluation for continued left knee pain and possible effusion. Anticoagulation remains on hold and likely not a candidate. Hemoglobin is stable with no active bleeding noted. Cardiology following and patient is continued on amiodarone taper and will continue. Patient is a transfer out of the ICU once a bed on 3 S. is available. Will have PT/OT therapy evaluate the patient and discuss further with patient regarding d ischarge planning. Plan is for hemodialysis tomorrow as scheduled. 06/04/2023 Patient is seen and evaluated in follow-up today scheduled to undergo hemodialysis as patient is maintained on Friday/Friday/Friday/Friday schedules and normally does dialysis at home. Hemoglobin is 7.0 today and will transfuse 1 unit of PRBC. Anticoagulation remains on hold. Patient is a downgrade out of ICU once a bed is available. Orthopedics evaluated the patient and ordered MRI of the left knee as well as imaging on the left ankle as patient is reporting significant pain and difficulty with ambulation. Recommending nonweightbearing on the left lower extremity until MRI imaging done. Patient not a surgical candidate at this time and recommending conservative management although would like to rule out a tear on the left knee. Patient is afebrile with no reported chest pain or shortness of breath and reports to feeling well otherwise. 06/05/2023 Patient is seen in follow-up this morning with no acute overnight issues noted. Patient hemoglobin is 8.2 today status post 1 unit of transfusion. Platelets 136. Patient is not on any anticoagulation and awaiting to undergo left knee MRI. Apparently the machine was down and patient was unable to receive his MRI. Plans for later today if the machine is up and running. Patient being followed by cardiology as well as nephrology and is maintained on hemodialysis. Patient will receive dialysis as scheduled tomorrow. Recommend follow-up labs and monitor hemoglobin closely. No active bleeding noted at this time. Patient continues to report left knee pain and is to remain nonweightbearing of the left lower extremity until MRI is resulted. Recommend PT/OT therapy for continued strength and mobility. Patient and family are adamant patient is returning home on discharge. Review of systems: Constitutional: No reports of fatigue, fever, or chills Cardiovascular: No reports of chest pain or palpitations Respiratory: No reports of shortness of breath or cough GI: No reports of nausea, vomiting, or diarrhea : No reports of dysuria or retention Neurovascular: reports of generalized weakness and significant left knee and ankle pain, reports swelling has improved All medications have been reviewed PHYSICAL EXAMINATION: GENERAL: The patient is alert and oriented x3, ill appearance, legally blind, appears older than stated age HEENT: Pupils are round and equally reacting to light. EOMI. No scleral icterus. CARDIOVASCULAR: S1 and S2 present. No murmurs, rubs, or gallops. PULMONARY: Chest is clear to auscultation, no wheezing or crackles. ABDOMEN: Soft, nontender, nondistended, normoactive bowel sounds. No palpable organomegaly. MUSCULOSKELETAL: No joint swelling or deformity. EXTREMITIES: No cyanosis, clubbing, or pedal edema. Left knee with significant bruising and swelling has improved, left ankle tender on palpation as well NEUROLOGICAL: Gross neurological examination did not reveal any focal deficits. Diffusely weak SKIN: Bilateral flank bruising noted Assessment: S/p fall, with blood loss anemia, suspect retroperitoneal bleed from fall End-stage renal disease on hemodialysis Hypovolemic shock from blood loss, improved elevated troponin type II [place] Chronic atrial fibrillation Valvular heart disease with aortic stenosis History of hypotension on midodrine History of renal transplant, with failure maintained on hemodialysis and reports does this at home Friday and Saturdays Legally blind Left knee pain with bruising and swelling status post fall a few weeks ago, concerns for possible effusion versus tear and scheduled to undergo MRI sometime today Plan: Regards to fall, will maintain fall precautions, patient had a CT chest abdomen and pelvis done on 05/28/2023, will continue to monitor. Suspect soft tissue contusion, other imaging was negative for acute fracture. Patient continuing to have left knee pain with significant swelling and bruising noted. Orthopedics consulted and has placed an order for an MRI of the left knee and also images including x-ray of the ankle as patient is reporting significant pain. Not a surgical candidate recommending conservative management and ruling out possible tear of the knee recommend nonweightbearing until results of MRI. MRI was initially placed on hold as the MRI machine was down although up and running and patient to undergo MRI of the left knee today. Ankle and lower extremity of the left x-rays were done and negative for any acute fractures In regards to end-stage renal disease on hemodialysis nephrology following continued on hemodialysis and currently receiving today. Patient reports he does this at home and is maintained on Friday/Friday/Friday/Friday schedule an outpatient follow-up with Dr. Pride, continue patient on midodrine Hemoglobin just above 8 status post 1 unit of PRBCs yesterday with no active bleeding noted Regards to history of atrial fibrillation continue on telemonitoring, continue amiodarone taper per cardiology, cardiology following adjustments to medications, currently rate controlled In regards to blood loss anemia patient has received 3 unit of packed RBC this admission. No active bleeding noted Regards to shock, currently off pressor support and blood pressure remains stable at this time. patient has been transferred out of the ICU currently on 3 S. Recommend PT/OT therapy evaluation and discussed possible ECF. Patient and family are adamant patient is returning home and will not be requiring rehab or home care on discharge. Case management is following awaiting PT/OT therapy notes. Patient is to remain nonweightbearing on the left lower extremity until the MRI is resulted per orthopedics CODE STATUS is full code Due to multiple complex medical issues, prognosis is guarded The impression and plan of care has been dictated by Donna Taylor, Nurse Practitioner as directed. Dr. Venita MD I have performed a history and examination and MDM of this patient, discussed the same with the dictator, and agree with the dictator's assessment and plan as written ,documented as a scribe. Based on total visit time, I have performed more than 50% of the visit. Objective - Vital Signs Vital signs: Vital Signs Temp 98.1 F 06/05/23 15:59 Pulse 61 06/05/23 15:59 Resp 16 06/05/23 15:59 BP 112/59 06/05/23 15:59 Pulse Ox 99 06/05/23 15:59 FiO2 Intake & Output 06/04/23 06/05/23 06/05/23 18:59 06:59 18:59 Intake Total 1070 10 Output Total 1800 Balance -730 10 Weight 84 kg Intake: IV 10 Invasive Line 4 10 Oral 250 0 Blood Product 620 Rc As-1 Unit 310 [id number] Hemodialysis 200 Output: Urine 0 Hemodialysis 1800 - Labs CBC & Chem 7: 06/05/23 07:31 06/05/23 07:31 Labs: Abnormal Lab Results - Last 24 Hours (Table) 06/04/23 06/05/23 06/05/23 Range/Units 18:45 07:31 07:31 WBC 3.3 L (3.8-10.6) k/uL RBC 3.21 L 2.60 L (4.30-5.90) m/uL Hgb 9.7 L D 8.2 L D (13.0-17.5) gm/dL Hct 30.9 L 25.0 L (39.0-53.0) % RDW 17.8 H 18.3 H (11.5-15.5) % Plt Count 147 L 136 L (150-450) k/uL Lymphocytes # 0.9 L (1.0-4.8) k/uL BUN 44 H (9-20) mg/dL Creatinine 7.04 H* (0.66-1.25) mg/dL
--- NOTE | 2023-06-05 16:46 | P.PN ---
Subjective Progress Note Date: 06/05/23 This is a pleasant 52-year-old male patient on today's evaluation of 06/02/2023, the patient is being seen for a follow-up. The patient is complaining of pain in his left knee and the left knee is slightly swollen. Otherwise, he has limited mobility. He has limited vision. He is on dialysis and the patient has a permacath in his right femoral vein and is undergoing hemodialysis this morning. No major respiratory complaints. No cough or sputum production or chest tightness or wheezing. No hypotension. Hemoglobin remained stable. On today's blood work, the patient's white cell count is at 3.4 with a hemoglobin of 7.2 and a platelet count of 114. The creatinine today is at 8.3 with a BUN of 57 and a sodium levels at 134 with a potassium level of 4.4. The patient has been on long-term prednisone 10 mg p.o. daily. He is post renal transplant and the prednisone has been capped posttransplantation. I think he has a component of steroid dependence. Rest of the medication remain unchanged. Note that the patient has multiple medical problems and comorbidities. He has chronic A-fib, current rhythm is sinus. He has history of seizure disorder and hypothyroidism and end-stage renal disease and currently is hemodialysis. He is undergone previous kidney transplantation that subsequently failed and the patient has been on dialysis for many years. CAT scan of the chest was done on 05/30/2023 following his fall showed no evidence of any pneumothorax. The patient has extensive bruising over the left lateral abdomen, flank area and back. The area remains unchanged. He is currently on no pressors. He typically undergoes hemodialysis 3 times a week [facility] and 4 times a week at home Friday, Friday, Friday and Saturdays. He is legally blind. On today's evaluation of 3 , the patient is doing well. The patient has no specific complaints. He remains on room air oxygen. No respiratory difficulties. No cough or sputum production or chest tightness or wheezing. Hemodialysis was done yesterday and a total of 1.2 L of fluid was removed. Meanwhile, the patient is still complaining of pain in his left knee and there is some effusion within the left knee joint and this is to be directly addressed by the orthopedic surgeon. Meanwhile, the patient's hemoglobin has remained stable. No evidence of any bleeding. Hemoglobin this morning is at 7.5 with white cell count of 2.8. Platelet count is at 122, BUN is at 39 with a creatinine of 6.7 and a potassium level is at 3.6 with a sodium level of 134. Medications remain unchanged. The patient remains on midodrine for blood pressure support and the patient is on long-term steroids and the patient takes prednisone 10 mg p.o. per day. BP is adequate for now. He is afebrile. On today's evaluation of 06/04/2023, the patient is being seen for a follow-up. No specific complaints. Undergoing hemodialysis today. Hemoglobin today is at 7.0. No evidence of any acute bleeding. The patient is on room air oxygen. The patient is calm and comfortable. No respiratory difficulties. No other significant events overnight. Remains on 10 mg of prednisone on a daily basis. The white cell count is at 3.4 with a platelet count of 120. BUN is at 58 with a creatinine of 8.5 and a sodium levels at 136 with a potassium level of 3.8. No altered mentation. No chest pain. No other complaints otherwise for now. On today's evaluation of 06/05/2023, patient is being seen for a follow-up. The patient had unit of packed RBC yesterday which brought up his hemoglobin up to 8.2. His occult blood in the stool was negative. Meanwhile, the patient will be given a CAT scan of the abdomen and pelvis to evaluate for any retroperitoneal bleeding or hematoma formation. The patient is currently on room air oxygen. Orthopedic is following this patient regarding the left knee pain and swelling. The patient will be given an MRI of the left knee to rule out rupture of the quadriceps tendon. Meanwhile, the patient has no other complaints. No respiratory difficulties. Was transferred out of the intensive care unit. His white cell count is at 3 with a hemoglobin 8.2 and a platelet count of 136. BUN is 44 with a creatinine of 7.04 and sodium levels at 137. He is being dialyzed periodically. Alert and awake and communicating. Denies having any chest pain or shortness of breath. He remains in atrial fibrillation with a controlled rate. Objective - Vital Signs Vital signs: Vital Signs Temp 98.2 F 06/04/23 20:00 Pulse 67 06/05/23 04:00 Resp 16 06/05/23 04:00 BP 156/88 06/05/23 04:00 Pulse Ox 96 06/05/23 04:00 FiO2 Intake & Output 06/04/23 06/05/23 06/05/23 18:59 06:59 18:59 Intake Total 1070 0 Output Total 1800 Balance -730 0 Weight 84 kg Intake: Oral 250 0 Blood Product 620 Rc As-1 Unit 310 [id number] Hemodialysis 200 Output: Urine 0 Hemodialysis 1800 - Exam No acute distress, oriented 3. Currently on room air. Saturations are 98%. No respiratory distress at rest. Head exam was generally normal. There was no scleral icterus or corneal arcus. Mucous membranes were moist. HEENT examination is grossly unremarkable. Mucous membranes are moist. No oral lesions. Neck supple. Full range of motion. No adenopathy thyromegaly or neck vein distention. Cardiovascular examination reveals an irregular rhythm. S1-S2 normal. No S3 or S4. No discernible murmur noted. Heart sounds are distant. Lungs reveal clear breath sounds. Breath sounds are equal bilaterally. No adve ntitious lung sounds including wheezes rhonchi or crackles. Abdomen is soft, with bowel sounds. No masses or tenderness. The patient has a femoral permacath and exit site is dry clean and intact Extremities are intact. No cyanosis clubbing or edema. The left knee is quite swollen and there is an effusion Skin reveals multiple large ecchymoses. Neurologic examination is brief but nonfocal. - Labs CBC & Chem 7: 06/05/23 07:31 06/05/23 07:31 Labs: Abnormal Lab Results - Last 24 Hours (Table) 06/04/23 06/04/23 06/05/23 Range/Units 09:13 18:45 07:31 WBC 3.3 L (3.8-10.6) k/uL RBC 3.21 L 2.60 L (4.30-5.90) m/uL Hgb 9.7 L D 8.2 L D (13.0-17.5) gm/dL Hct 30.9 L 25.0 L (39.0-53.0) % RDW 17.8 H 18.3 H (11.5-15.5) % Plt Count 147 L 136 L (150-450) k/uL Lymphocytes # 0.9 L (1.0-4.8) k/uL BUN (9-20) mg/dL Creatinine (0.66-1.25) mg/dL Crossmatch See Detail 06/05/23 Range/Units 07:31 WBC (3.8-10.6) k/uL RBC (4.30-5.90) m/uL Hgb (13.0-17.5) gm/dL Hct (39.0-53.0) % RDW (11.5-15.5) % Plt Count (150-450) k/uL Lymphocytes # (1.0-4.8) k/uL BUN 44 H (9-20) mg/dL Creatinine 7.04 H* (0.66-1.25) mg/dL Crossmatch Assessment and Plan Plan: Fall with a large ecchymotic area involving the left lateral abdomen extending to his back in the area remains unchanged and hemoglobin remained stable. Generalized weakness and frequent falls related to being legally blind and comorbidities, clinically stable and improving Left knee pain/swelling. X-ray of the knee 05/28/2023 showed no evidence of any fracture. There is ongoing swelling and effusion in the left knee joint. He continues to complain of pain and having difficulties with mobility, awaiting MRI of the left knee to rule out any quadricep tendon rupture Acute on chronic anemia, hemoglobin today is is at 8.2 post 3 units of packed RBC transfusion and the ecchymotic area over the left flank and back area remained stable. Occult stool was negative for blood. The patient will have a CAT scan of the abdomen pelvis to rule out any retroperitoneal bleed or hemorrhage. Hypotension secondary to above requiring pressor support, resolved. Acute hypoxic respiratory failure secondary to above, recovered and the patient is currently on room air oxygen End stage chronic kidney disease, currently receiving hemodialysis. He has a permacth in the right femoral and has been receiving since 2018, hemodialysis was performed yesterday and the patient has a permacath in his right groin History of kidney transplant in 1998. Chronic atrial fibrillation, not anticoagulated due to frequent falls and anemia. He is in sinus rhythm Severely calcified aortic valve, moderate mitral calcification with mild to moderate mitral regurgitation. Legally blind. History of seizure disorder. Hypothyroidism, post thyroidectomy. Plan Monitor hemoglobin, which is currently stable, will monitor the level and the most recent level is at 8.2 posttransfusion 1 unit of packed RBC Awaiting CAT scan of the abdomen and pelvis Monitor hemodynamics and the patient is currently off pressors Will ask Ortho to reevaluate the left knee, there is an effusion and the patient is scheduled to undergo an MRI of the left knee Continue hemodialysis, last session was done yesterday Monitor electrolytes Continue monitoring the ecchymotic area over the left lateral abdomen and flank and back area Will follow
--- NOTE | 2023-06-05 17:52 | CT ---
EXAMINATION TYPE: CT abdomen pelvis wo con CT DLP: 755.7 mGycm, Automated exposure control for dose reduction was used. DATE OF EXAM: 06/05/2023 3:34 PM COMPARISON: CT abdomen pelvis most recent from most recent 05/28/2023 CLINICAL INDICATION:Male, 52 years old with history of R/O retroperitoneal bleed; TECHNIQUE: Axial CT abdomen pelvis wo con;Sagittal and coronal reformats were created on a separate workstation. Contrast used: mL of , (none if empty) Oral contrast used: without Oral Contrast (none if empty) FINDINGS: LOWER CHEST: The heart is enlarged for size with severe coronary artery atherosclerosis, The bowel an nular cusp patient's and aortic valve calcifications. Trace bilateral pleural effusions. Streaky atel ectasis in the lung bases. ABDOMEN LIVER: Unremarkable GALLBLADDER AND BILE DUCTS: Unremarkable. PANCREAS: Unremarkable. SPLEEN: At the upper limits of normal measuring 13.5 cm. ADRENAL GLANDS: Unremarkable. KIDNEYS AND URETERS: Atrophic polycystic kidneys bilaterally of the [place] kidneys. There is a transp lant right pelvis kidney with pelviectasis mild Fat stranding changes around the ureter series 201 im age 122 similar to most recent prior CT. No evidence of hydronephrosis or renal calculus of the nativ e kidneys. The ureters are unremarkable. PELVIS BLADDER: Mild Fat stranding changes around the bladder wall. REPRODUCTIVE: Unremarkable. ABDOMEN & PELVIS STOMACH AND BOWEL: No evidence of bowel obstruction. PERITONEUM/RETROPERITONEUM: No evidence of pneumoperitoneum or free fluid. No organizing fluid collec tion or hematoma within the retroperitoneum. VASCULATURE: No evidence of aortic aneurysm. Severe atherosclerosis of the arterial vasculature. Righ t inferior central venous catheter with tip terminating in the inferior vena cava. MUSCULOSKELETAL: No acute osseous abnormalities, degeneration changes of the hips with subchondral sc lerosis on the right. No subchondral collapse. LYMPH NODES: No gross evidence for lymphadenopathy. SOFT TISSUE/ABDOMINAL WALL: Unremarkable IMPRESSION: 1. No retroperitoneal hematoma. 2. Atrophic bilateral renal kidneys with renal osteodystrophy. The [place] and transplant kidney with mild Fat stranding changes around the transplant ureter and bladder correlate with urinalysis. 3. Cardiomegaly with trace bilateral pleural effusions. Severe coronary artery atherosclerosis with aortic valve calcifications and mitral valve calcifications. 4. Right common femoral central venous catheter with tip in appropriate position IVC.
--- NOTE | 2023-06-06 04:56 | MR ---
EXAMINATION TYPE: MR knee LT wo con DATE OF EXAM: 06/05/2023 COMPARISON: CT May 28, 2023 HISTORY: Fall, TECHNIQUE: Multiplanar, multisequence images of the knee is performed without IV contrast. FINDINGS: MEDIAL MENISCUS: Oblique increased signal posterior horn appears to extend to the inferior articular surface coronal image 28. LATERAL MENISCUS: Anterior and posterior horns are intact without tear. CRUCIATE LIGAMENTS: The anterior and posterior cruciate ligaments are intact and unremarkable. COLLATERAL LIGAMENTS: The medial collateral ligament and lateral collateral ligament complex are inta ct and unremarkable. EXTENSOR MECHANISM: Complete rupture and retraction of the distal quadriceps tendon with at least ne ar 6.0 cm gap. Intact patellar tendon EFFUSION: Moderate size suprapatellar joint effusion. POPLITEAL CYST: Small size popliteal/chatman cyst. TRICOMPARTMENT SPACES: Patella baja or low positioning. Mild tricompartment joint space loss. No sign ificant spurring. CARTILAGE: Tricompartmental articular cartilage is maintained. BONE MARROW SIGNAL: Focus of curvilinear diminished T1 and increased T2 signal posterior aspect of th e distal medial femoral condyle corresponds to sclerosis, possible bone infarct. OTHER: Severe diffuse subcutaneous edema. Small areas of more focal fluid anteriorly could reflect so ft tissue contusion injury. IMPRESSION: 1. Retracted complete rupture of the distal quadriceps tendon with patella baja. 2. Subtle full-thickness tear posterior horn medial meniscus. 3. Moderate-sized suprapatellar joint effusion. 4. Severe diffuse subcutaneous edema. 5. Mild tricompartment degenerative changes.
[2023-06-06 08:38] LABS: Anisocytosis Slight; Basophils % (A) 0 %; Eosinophils % (A) 1 %; HCT 27.6 % (39.0-53.0); HGB 8.5 gm/dL (13.0-17.5); Hypochromasia Moderate; Lymphocytes # (A) 0.7 k/uL (1.0-4.8); Lymphocytes % (A) 22 %; MCH 30.4 pg (25.0-35.0); MCHC 30.9 g/dL (31.0-37.0); MCV 98.2 fL (80.0-100.0); Macrocytosis Slight; Mean Platelet Volume 7.7; Monocytes # (A) 0.2 k/uL (0-1.0); Monocytes % (A) 7 %; Neutrophils # (A) 2.2 k/uL (1.3-7.7); Neutrophils % (A) 69 %; Platelet Count 168 k/uL (150-450); RBC 2.81 m/uL (4.30-5.90); RDW 17.6 % (11.5-15.5); WBC 3.2 k/uL (3.8-10.6)
[2023-06-06 09:19] LABS: African American GFR (CKD) 8 (>60 ml/min/1.73 sqM); Anion Gap 12 mmol/L; Blood Urea Nitrogen 62 mg/dL (9-20); Calcium 9.2 mg/dL (8.4-10.2); Carbon Dioxide 24 mmol/L (22-30); Chloride 101 mmol/L (98-107); Glucose 96 mg/dL (74-99); Magnesium 1.8 mg/dL (1.6-2.3); Non-African American GFR(CKD) 7 (>60 ml/min/1.73 sqM); Potassium 4.7 mmol/L (3.5-5.1); Sodium 137 mmol/L (137-145)
--- NOTE | 2023-06-06 10:16 | P.PN ---
Subjective Patient is seen for follow-up for end-stage renal disease. Patient is seen on hemodialysis. Tolerating treatment well. Objective - Vital Signs Vital signs: Vital Signs Temp 98.1 F 06/06/23 08:45 Pulse 98 06/06/23 08:45 Resp 18 06/06/23 08:45 BP 143/96 06/06/23 08:45 Pulse Ox 98 06/06/23 08:45 FiO2 Intake & Output 06/05/23 06/06/23 06/06/23 18:59 06:59 18:59 Intake Total 250 360 Balance 250 360 Weight 84 kg Intake: IV 10 Invasive Line 4 10 Oral 240 360 - Exam Patient is awake, comfortable, no acute distress Alert oriented 3 Examination of the heart S1 and S2 Examination of the lungs bilateral breath sounds are heard Abdomen is soft nontender Examination of lower extremity shows edema 1+ right leg and 2+ left leg. Right femoral dialysis catheter [employer] exam grossly intact - Labs CBC & Chem 7: 06/06/23 07:41 06/06/23 07:41 Labs: Abnormal Lab Results - Last 24 Hours (Table) 06/06/23 06/06/23 Range/Units 07:41 07:41 WBC 3.2 L (3.8-10.6) k/uL RBC 2.81 L (4.30-5.90) m/uL Hgb 8.5 L (13.0-17.5) gm/dL Hct 27.6 L (39.0-53.0) % MCHC 30.9 L (31.0-37.0) g/dL RDW 17.6 H (11.5-15.5) % Lymphocytes # 0.7 L (1.0-4.8) k/uL BUN 62 H (9-20) mg/dL Creatinine 8.46 H* (0.66-1.25) mg/dL Assessment and Plan Assessment: 1. End-stage renal disease maintained on home hemodialysis 4 days per week ///. Femoral dialysis catheter. 2. Acute blood loss anemia with ESRD. No obvious bleeding noted. Patient has significant bruises, ecchymosis. Stool for occult blood is negative and CT abdomen with no evidence of retroperitoneal bleed. 3. Hemorrhagic shock maintained on Levophed. Mostly bruising and ecchymosis. No active GI bleed noted. 4. Chronic kidney disease mineral bone disease maintained on Calcitriol. 5. Anemia of chronic kidney disease. Iron replete. 6. Chronic hypotension managed on midodrine and Florinef Plan: Maintain hemodialysis on Friday schedule Continue [facility]
[2023-06-06 11:56] VITALS: BMI 27.3
[2023-06-06 13:07] VITALS: TEMP 97.7
--- NOTE | 2023-06-06 13:50 | P.PN ---
Subjective Progress Note Date: 06/06/23 Principal diagnosis: Left knee quadricep tear. Left knee pain. This is a 52-year-old male who is admitted for suspected retroperitoneal bleed and blood loss anemia after a fall on 05/28/2023. Patient's past medical history is significant for end-stage renal disease on hemodialysis, atrial fibrillation, and seizure disorder. Orthopedics is following for evaluation of left knee pain and swelling. Patient states that he continues to have difficulty with the left knee, but he denies any new complaints today. 06/06/2023: Patient's MRI does confirm that he has a complete and retracted quadricep rupture of the left knee. He has been refusing the knee immobilizer stating that it is not comfortable. There are no other complaints or concerns today. Vital signs are stable. Objective - Vital Signs Vital signs: Vital Signs Temp 97.7 F 06/06/23 12:42 Pulse 60 06/06/23 12:42 Resp 18 06/06/23 12:42 BP 155/69 06/06/23 12:42 Pulse Ox 98 06/06/23 11:36 FiO2 Intake & Output 06/05/23 06/06/23 06/06/23 18:59 06:59 18:59 Intake Total 250 760 Output Total 1800 Balance 250 -1040 Weight 84 kg 84 kg Intake: IV 10 Invasive Line 4 10 Oral 240 360 Hemodialysis 400 Output: Hemodialysis 1800 - Exam This is a pleasant 52-year-old male in no acute distress. He is alert and oriented x 3. His is present at bedside. Exam of the left lower extremity reveals a 2+ effusion. There is no erythema or ecchymosis. There is a defect palpable about the suprapatellar region. He is unable to actively extend his knee. He has full foot and ankle motion without difficulty or pain. Neurovascular status to the lower extremity is intact. - Labs CBC & Chem 7: 06/06/23 07:41 06/06/23 07:41 Labs: Abnormal Lab Results - Last 24 Hours (Table) 06/06/23 06/06/23 Range/Units 07:41 07:41 WBC 3.2 L (3.8-10.6) k/uL RBC 2.81 L (4.30-5.90) m/uL Hgb 8.5 L (13.0-17.5) gm/dL Hct 27.6 L (39.0-53.0) % MCHC 30.9 L (31.0-37.0) g/dL RDW 17.6 H (11.5-15.5) % Lymphocytes # 0.7 L (1.0-4.8) k/uL BUN 62 H (9-20) mg/dL Creatinine 8.46 H* (0.66-1.25) mg/dL Assessment and Plan (1) Traumatic rupture of left quadriceps tendon Current Visit: Yes Status: Acute Code(s): S76.112A - STRAIN OF LEFT QUADRICEPS MUSCLE, FASCIA AND TENDON, INIT SNOMED Code(s): 87676191645262983 (2) Left knee pain Current Visit: Yes Status: Acute Code(s): M25.562 - PAIN IN LEFT KNEE SNOMED Code(s): 7094413240 (3) ESRD on dialysis Current Visit: No Status: Acute Code(s): N18.6 - END STAGE RENAL DISEASE; Z99.2 - DEPENDENCE ON RENAL DIALYSIS SNOMED Code(s): 875992460 (4) Fall Current Visit: No Status: Acute Code(s): W19.XXXA - UNSPECIFIED FALL, INITIAL ENCOUNTER SNOMED Code(s): 6330888 Plan: The clinical and MRI findings are discussed with the patient and his . With his significant medical history he has increased risk with any surgical intervention. The patient has been cleared from a cardiac standpoint if surgery is necessary. It is recommended that the patient be discharged home with a knee immobilizer and follow-up in 1 week. We will discuss further treatment at that time. I did modify his knee immobilizer to make it more comfortable. We will see him back in 1 week. He is to call our office if there are any problems or questions regarding his care.
--- NOTE | 2023-06-06 15:24 | P.PN ---
Subjective Progress Note Date: 06/06/23 This is a pleasant 52-year-old male patient on today's evaluation of 06/02/2023, the patient is being seen for a follow-up. The patient is complaining of pain in his left knee and the left knee is slightly swollen. Otherwise, he has limited mobility. He has limited vision. He is on dialysis and the patient has a permacath in his right femoral vein and is undergoing hemodialysis this morning. No major respiratory complaints. No cough or sputum production or chest tightness or wheezing. No hypotension. Hemoglobin remained stable. On today's blood work, the patient's white cell count is at 3.4 with a hemoglobin of 7.2 and a platelet count of 114. The creatinine today is at 8.3 with a BUN of 57 and a sodium levels at 134 with a potassium level of 4.4. The patient has been on long-term prednisone 10 mg p.o. daily. He is post renal transplant and the prednisone has been capped posttransplantation. I think he has a component of steroid dependence. Rest of the medication remain unchanged. Note that the patient has multiple medical problems and comorbidities. He has chronic A-fib, current rhythm is sinus. He has history of seizure disorder and hypothyroidism and end-stage renal disease and currently is hemodialysis. He is undergone previous kidney transplantation that subsequently failed and the patient has been on dialysis for many years. CAT scan of the chest was done on 05/30/2023 following his fall showed no evidence of any pneumothorax. The patient has extensive bruising over the left lateral abdomen, flank area and back. The area remains unchanged. He is currently on no pressors. He typically undergoes hemodialysis 3 times a week MW and 4 times a week at home Friday, Friday, Friday and Saturdays. He is legally blind. On today's evaluation of 3 , the patient is doing well. The patient has no specific complaints. He remains on room air oxygen. No respiratory difficulties. No cough or sputum production or chest tightness or wheezing. Hemodialysis was done yesterday and a total of 1.2 L of fluid was removed. Meanwhile, the patient is still complaining of pain in his left knee and there is some effusion within the left knee joint and this is to be directly addressed by the orthopedic surgeon. Meanwhile, the patient's hemoglobin has remained stable. No evidence of any bleeding. Hemoglobin this morning is at 7.5 with white cell count of 2.8. Platelet count is at 122, BUN is at 39 with a creatinine of 6.7 and a potassium level is at 3.6 with a sodium level of 134. Medications remain unchanged. The patient remains on midodrine for blood pressure support and the patient is on long-term steroids and the patient takes prednisone 10 mg p.o. per day. BP is adequate for now. He is afebrile. On today's evaluation of 06/04/2023, the patient is being seen for a follow-up. No specific complaints. Undergoing hemodialysis today. Hemoglobin today is at 7.0. No evidence of any acute bleeding. The patient is on room air oxygen. The patient is calm and comfortable. No respiratory difficulties. No other significant events overnight. Remains on 10 mg of prednisone on a daily basis. The white cell count is at 3.4 with a platelet count of 120. BUN is at 58 with a creatinine of 8.5 and a sodium levels at 136 with a potassium level of 3.8. No altered mentation. No chest pain. No other complaints otherwise for now. On today's evaluation of 06/05/2023, patient is being seen for a follow-up. The patient had unit of packed RBC yesterday which brought up his hemoglobin up to 8.2. His occult blood in the stool was negative. Meanwhile, the patient will be given a CAT scan of the abdomen and pelvis to evaluate for any retroperitoneal bleeding or hematoma formation. The patient is currently on room air oxygen. Orthopedic is following this patient regarding the left knee pain and swelling. The patient will be given an MRI of the left knee to rule out rupture of the quadriceps tendon. Meanwhile, the patient has no other complaints. No respiratory difficulties. Was transferred out of the intensive care unit. His white cell count is at 3 with a hemoglobin 8.2 and a platelet count of 136. BUN is 44 with a creatinine of 7.04 and sodium levels at 137. He is being dialyzed periodically. Alert and awake and communicating. Denies having any chest pain or shortness of breath. He remains in atrial fibrillation with a controlled rate. On today's evaluation of 06/06/2023, the patient is being seen for a follow-up. The patient is doing well with no specific complaints. Undergoing hemodialysis. His hemoglobin stable at 8.5. CAT scan of the abdomen and pelvis was done yesterday and it showed no evidence of any intra-abdominal or retroperitoneal bleeding. No evidence of any retroperitoneal hematoma. The patient has atrophic kidneys on the patient also has cardiomegaly and trace bilateral pleu ral effusions. At the same time, MRI of the left knee was done and showed moderate size effusion in the suprapatellar joint. The patient also has a complete rupture of the distal quadriceps tendon and the patient is being followed up by orthopedic surgery. The white cell count was at 3.2, hemoglobin 8.5, BUN is a 62 with a creatinine of 8.4 and a sodium levels at 137. Denies having any specific complaints otherwise for now. No altered mentation. Remains on room air oxygen. Objective - Vital Signs Vital signs: Vital Signs Temp 98.1 F 06/06/23 08:45 Pulse 98 06/06/23 08:45 Resp 18 06/06/23 08:45 BP 143/96 06/06/23 08:45 Pulse Ox 98 06/06/23 08:45 FiO2 Intake & Output 06/05/23 06/06/23 06/06/23 18:59 06:59 18:59 Intake Total 250 360 Balance 250 360 Weight 84 kg Intake: IV 10 Invasive Line 4 10 Oral 240 360 - Exam No acute distress, oriented 3. Currently on room air. Saturations are 98%. No respiratory distress at rest. Head exam was generally normal. There was no scleral icterus or corneal arcus. Mucous membranes were moist. HEENT examination is grossly unremarkable. Mucous membranes are moist. No oral lesions. Neck supple. Full range of motion. No adenopathy thyromegaly or neck vein distention. Cardiovascular examination reveals an irregular rhythm. S1-S2 normal. No S3 or S4. No discernible murmur noted. Heart sounds are distant. Lungs reveal clear breath sounds. Breath sounds are equal bilaterally. No adventitious lung sounds including wheezes rhonchi or crackles. Abdomen is soft, with bowel sounds. No masses or tenderness. The patient has a femoral permacath and exit site is dry clean and intact Extremities are intact. No cyanosis clubbing or edema. The left knee is quite swollen and there is an effusion Skin reveals multiple large ecchymoses. Neurologic examination is brief but nonfocal. - Labs CBC & Chem 7: 06/06/23 07:41 06/06/23 07:41 Labs: Abnormal Lab Results - Last 24 Hours (Table) 06/06/23 06/06/23 Range/Units 07:41 07:41 WBC 3.2 L (3.8-10.6) k/uL RBC 2.81 L (4.30-5.90) m/uL Hgb 8.5 L (13.0-17.5) gm/dL Hct 27.6 L (39.0-53.0) % MCHC 30.9 L (31.0-37.0) g/dL RDW 17.6 H (11.5-15.5) % Lymphocytes # 0.7 L (1.0-4.8) k/uL BUN 62 H (9-20) mg/dL Creatinine 8.46 H* (0.66-1.25) mg/dL Assessment and Plan Plan: Fall with a large ecchymotic area involving the left lateral abdomen extending to his back in the area remains unchanged and hemoglobin remained stable. Generalized weakness and frequent falls related to being legally blind and comorbidities, clinically stable and improving Left knee pain/swelling. X-ray of the knee 05/28/2023 showed no evidence of any fracture. There is ongoing swelling and effusion in the left knee joint. He continues to complain of pain and having difficulties with mobility, MRI of the left knee showed rupture of the quadriceps tendon along with moderate size effusion within the joint. The patient continues to have pain and difficulty with mobility. Acute on chronic anemia, hemoglobin is stable and the repeat CAT scan of the abdomen showed no evidence of any retroperitoneal hematoma Hypotension secondary to above requiring pressor support, resolved. Acute hypoxic respiratory failure secondary to above, recovered and the patient is currently on room air oxygen End stage chronic kidney disease, currently receiving hemodialysis. He has a permacth in the right femoral and has been receiving since 2018, hemodialysis was performed yesterday and the patient has a permacath in his right groin History of kidney transplant in 1998. Chronic atrial fibrillation, not anticoagulated due to frequent falls and anemia. He is in sinus rhythm Severely calcified aortic valve, moderate mitral calcification with mild to moderate mitral regurgitation. Legally blind. History of seizure disorder. Hypothyroidism, post thyroidectomy. Plan Monitor hemoglobin, hemoglobin is stable and CT scan of the abdomen and pelvis has been stable Monitor hemodynamics and the patient is currently off pressors Hemodialysis today Ortho to follow-up on the quadriceps tendon rupture and joint effusion Monitor electrolytes Continue monitoring the ecchymotic area over the left lateral abdomen and flank and back area Will follow
[2023-06-06 17:14] VITALS: BP 130/67; PULSE 65; RESP 16
--- NOTE | 2023-06-07 12:09 | P.DS ---
Providers Date of admission: 05/30/23 18:34 Expected date of discharge: 06/06/23 Attending physician: Rob Storm Consults: 05/30/23 18:34 Consult Physician Routine Consulting Provider: Stanislaw Velázquez Consult Reason/Comments: low blood pressure , chest pain Do you want consulting provider notified?: Yes 05/31/23 05:22 Consult Physician Urgent Consulting Provider: Mychal Jerome Consult Reason/Comments: HD M, W, F, SAT, and Low Hgb Do you want consulting provider notified?: Already Contacted 06/01/23 22:30 Consult Physician Routine Consulting Provider: Mauri Bill Consult Reason/Comments: Low Blood Pressure Do you want consulting provider notified?: Already Contacted 06/03/23 10:00 Consult Physician Routine Consulting Provider: Benjamín Gonzalez Consult Reason/Comments: left knee injury r/t fall Do you want consulting provider notified?: Yes Primary care physician: Stated None Hospital Course: Final diagnosis S/p fall, with blood loss anemia, suspect retroperitoneal bleed from fall End-stage renal disease on hemodialysis Hypovolemic shock from blood loss, improved elevated troponin type II [place] Chronic atrial fibrillation Valvular heart disease with aortic stenosis History of hypotension on midodrine History of renal transplant, with failure maintained on hemodialysis and reports does this at home Friday and Saturdays Legally blind Left knee pain with bruising and swelling status post fall a few weeks ago, mri confirmed left quadriceps tendon rupture Discharge disposition Patient is being discharged in a stable condition with guarded prognosis to home. Patient will follow-up with Dr. Jerome in the outpatient setting upon discharge. Patient is to continue with hemodialysis as scheduled Friday that he does at home. Patient to continue with knee immobilizer and outpatient follow-up with orthopedics. Patient instructed to follow-up with cardiology outpatient as well. Total time taken is greater than 35 minutes. Hospital course This is a 52-year-old male who was recently admitted with fall with acute blood loss anemia with suspected retroperitoneal bleed from recent fall. Patient with significant weakness also having extreme left knee pain and swelling evaluated by orthopedics and underwent MRI showing a left quadriceps tendon rupture. Patient to continue with ice or and outpatient follow-up with orthopedics. High risk for surgery given he has end-stage renal disease maintained on dialysis as well as multiple other significant comorbidities orthopedics recommends outp atient follow-up in 1 week and to continue with nonweightbearing and knee immobilizer on the left. Patient hemoglobin stable above 7 and recommend outpatient labs in the next 2 days. Patient has been cleared by consultations for discharge. Please refer to other consultation notes for further HPI. Patient would likely benefit from rehab although patient and family are refusing and also refusing home care in the outpatient setting. Patient does not currently have a primary care provider and reports most of his care is done through nephrology. Patient follows with Dr. Jerome in the outpatient setting. Currently no reports of chest pain, shortness of breath, or palpitations. Patient is afebrile. No reports of nausea or vomiting and patient is tolerating diet. Patient will be discharged home today. Guarded prognosis and high risk for readmissions given patient's significant comorbidities Physical exam: Gen: This is a 52-year-old male who is awake, alert and oriented x 3, well-d eveloped, well-nourished, elderly appearing, legally blind HEENT: Head is atraumatic, normocephalic. Pupils equal, round. Sclerae is anicteric. NECK: Supple. No JVD. No lymphadenopathy. No thyromegaly. LUNGS: Clear to auscultation. No wheezes or rhonchi. No intercostal retractions. HEART: Regular rate and rhythm. No murmur. ABDOMEN: Soft. Obese. Bowel sounds are present. No masses. No tenderness. EXTREMITIES: No pedal edema. No calf tenderness. Left knee bruising with some minimal swelling noted. Swelling has significantly improved NEUROLOGICAL: Patient is awake, alert and oriented x3. Cranial nerves 2 through 12 are grossly intact. Diffusely weak Please refer to medication reconciliation sheet for a list of medications. The impression and plan of care has been dictated by Donna Taylor, Nurse Practitioner as directed. Dr. Venita MD I have performed a history and examination and MDM of this patient, discussed the same with the dictator, and agree with the dictator's assessment and plan as written ,documented as a scribe. Based on total visit time, I have performed more than 50% of the visit. Patient Condition at Discharge: Fair Plan - Discharge Summary Discharge Rx Participant: No New Discharge Prescriptions: New Darbepoetin Martin [Aranesp] 60 mcg SQ Q7D 30 Days #4 each Metoprolol Tartrate [Lopressor] 25 mg PO BID #60 tab Simethicone Chew [Mylicon Chew] 40 mg PO QID PRN #30 tab PRN Reason: Bloating allopurinoL 100 mg PO DAILY #30 tab Fludrocortisone [Florinef] 0.1 mg PO DAILY #30 tablet Continue Montelukast [Singulair] 10 mg PO HS Levothyroxine Sodium [Synthroid] 50 mcg PO DAILY Omeprazole [PriLOSEC] 20 mg PO DAILY predniSONE 10 mg PO DAILY calcitrioL 0.25 mcg PO SUTUWETHSA calcitrioL 0.5 mcg PO MOFR Midodrine HCl [ProAmatine] 10 mg PO QID Atorvastatin [Lipitor] 20 mg PO DAILY Fludrocortisone [Florinef] 0.1 mg PO DAILY Acetaminophen Tab [Tylenol] 650 mg PO Q4HR PRN tab PRN Reason: Pain methocarbamoL [Robaxin-750] 1,500 mg PO TID PRN 7 Days #42 tab PRN Reason: Pain Changed Amiodarone [Cordarone] 200 mg PO BID #60 tab Discontinued allopurinoL 100 mg PO DAILY Aspirin 81 mg PO DAILY #30 tab Metoprolol Tartrate [Lopressor] 25 mg PO TID #90 tab Discharge Medication List Levothyroxine Sodium [Synthroid] 50 mcg PO DAILY 12/18/17 [History] Montelukast [Singulair] 10 mg PO HS 12/18/17 [History] predniSONE 10 mg PO DAILY 04/25/21 [History] Atorvastatin [Lipitor] 20 mg PO DAILY 10/15/22 [History] Midodrine HCl [ProAmatine] 10 mg PO QID 10/15/22 [History] calcitrioL 0.25 mcg PO SUTUWETHSA 10/15/22 [History] calcitrioL 0.5 mcg PO MOFR 10/15/22 [History] Fludrocortisone [Florinef] 0.1 mg PO DAILY 04/25/23 [History] Omeprazole [PriLOSEC] 20 mg PO DAILY 04/25/23 [History] Acetaminophen Tab [Tylenol] 650 mg PO Q4HR PRN tab 04/28/23 [Rx] methocarbamoL [Robaxin-750] 1,500 mg PO TID PRN 7 Days #42 tab 05/28/23 [Rx] Amiodarone [Cordarone] 200 mg PO BID #60 tab 06/06/23 [Rx] Darbepoetin Martin [Aranesp] 60 mcg SQ Q7D 30 Days #4 each 06/06/23 [Rx] Fludrocortisone [Florinef] 0.1 mg PO DAILY #30 tablet 06/06/23 [Rx] Metoprolol Tartrate [Lopressor] 25 mg PO BID #60 tab 06/06/23 [Rx] Simethicone Chew [Mylicon Chew] 40 mg PO QID PRN #30 tab 06/06/23 [Rx] allopurinoL 100 mg PO DAILY #30 tab 06/06/23 [Rx] Follow up Appointment(s)/Referral(s): Benjamín Gonzalez DO [Doctor of Osteopathic Medicine] - 1 Week Mychal Jerome DO [STAFF PHYSICIAN] - 1 Week César Serrano DO [STAFF PHYSICIAN] - 1 Week Activity/Diet/Wound Care/Special Instructions: Maintain knee immobilizer. Protect weight bearing with walker. Rest, ice and elevate for swelling. Follow up with [facility] and call with any questions or concerns, . Activity limited until follow-up Follow-up with providers on discharge Continue hemodialysis on your normal routine Follow-up with orthopedics outpatient Discharge Disposition: HOME SELF-CARE
== END 2023-06-06 16:47 | disposition home or self-care (01) | DRG 371 ==
LOC: EC 15:10 → 3SCARD 18:34 → 2SICU 22:38 → 3SCARD 06-04 18:23
PROVIDERS: ADMIT Hospitalist; ATTEND Hospitalist
PROC: 30233N1 Transfusion of Nonautologous Red Blood Cells into Peripheral Vein, Percutaneous Approach (ICD-10-PCS; principal; 2023-05-30)
PROC: 3E033XZ Introduction of Vasopressor into Peripheral Vein, Percutaneous Approach (ICD-10-PCS; 2023-05-31)
PROC: 5A1D70Z Performance of Urinary Filtration, Intermittent, Less than 6 Hours Per Day (ICD-10-PCS; 2023-05-31)
DX: K68.3 Retroperitoneal hematoma (principal); I21.A1 Myocardial infarction type 2; R57.1 Hypovolemic shock; J96.01 Acute respiratory failure with hypoxia; R57.8 Other shock; N18.6 End stage renal disease; T86.12 Kidney transplant failure; I12.0 Hypertensive chronic kidney disease with stage 5 chronic kidney disease or end stage renal disease; D62 Acute posthemorrhagic anemia; J98.11 Atelectasis; D69.6 Thrombocytopenia, unspecified; D63.1 Anemia in chronic kidney disease; E83.9 Disorder of mineral metabolism, unspecified; G40.409 Other generalized epilepsy and epileptic syndromes, not intractable, without status epilepticus; I95.89 Other hypotension; E89.0 Postprocedural hypothyroidism; I08.3 Combined rheumatic disorders of mitral, aortic and tricuspid valves; I48.0 Paroxysmal atrial fibrillation; Z99.2 Dependence on renal dialysis; Z28.310 Unvaccinated for COVID-19; S76.112A Strain of left quadriceps muscle, fascia and tendon, initial encounter; S30.0XXA Contusion of lower back and pelvis, initial encounter; S80.02XA Contusion of left knee, initial encounter; M47.814 Spondylosis without myelopathy or radiculopathy, thoracic region; I25.10 Atherosclerotic heart disease of native coronary artery without angina pectoris; K21.9 Gastro-esophageal reflux disease without esophagitis; M25.572 Pain in left ankle and joints of left foot; H54.8 Legal blindness, as defined in USA; M19.90 Unspecified osteoarthritis, unspecified site; R29.6 Repeated falls; Z79.82 Long term (current) use of aspirin; Z79.890 Hormone replacement therapy; Z79.52 Long term (current) use of systemic steroids; Z79.899 Other long term (current) drug therapy; Z86.19 Personal history of other infectious and parasitic diseases; Z91.81 History of falling; W10.9XXA Fall (on) (from) unspecified stairs and steps, initial encounter; Y83.0 Surgical operation with transplant of whole organ as the cause of abnormal reaction of the patient, or of later complication, without mention of misadventure at the time of the procedure; Z91.041 Radiographic dye allergy status; Z88.5 Allergy status to narcotic agent; Z88.0 Allergy status to penicillin; Z88.2 Allergy status to sulfonamides; Z88.7 Allergy status to serum and vaccine; Z88.8 Allergy status to other drugs, medicaments and biological substances; Z88.1 Allergy status to other antibiotic agents
CPT/HCPCS: 36415; 36430; 74176; 80048; 80053; 82272; 83735; 84100; 84484; 85025; 85027; 85610; 85730; 86850; 86900; 86901; 86920; 87340; 90935; 93005; 96365; 96375; 99291

== ENCOUNTER 2023-06-24 12:49 | Day surgery (SDC) | payer MEDICARE ==
[2023-06-23 10:54] VITALS: BMI 26.6
[~2023-06-24 12:49] MED LIST: HYDROmorphone 0.5 MG/0.5 ML SYRINGE IVP PRN
[2023-06-24] MEDS: LACTATED RINGERS 1,000 ML IV SCH (14:17)
[2023-06-24 14:35] LABS: Glucose,Whole Blood 95 mg/dL (70-110)
[2023-06-24] MEDS: ONDANSETRON 4 MG/2 ML VIAL IVP ONE (14:40)
[2023-06-24] MEDS: DEXAMETHASONE SOD PHOSPHATE 4 MG/ML 1 ML VIAL IV ONE (14:40)
[2023-06-24 14:51] LABS: Basophils % (A) 0 %; Eosinophils # (A) 0.1 k/uL (0-0.7); Eosinophils % (A) 1 %; HCT 29.4 % (39.0-53.0); HGB 9.4 gm/dL (13.0-17.5); Lymphocytes # (A) 0.8 k/uL (1.0-4.8); Lymphocytes % (A) 8 %; MCH 30.9 pg (25.0-35.0); MCV 96.8 fL (80.0-100.0); Mean Platelet Volume 7.7; Monocytes # (A) 0.6 k/uL (0-1.0); Monocytes % (A) 6 %; Neutrophils # (A) 7.9 k/uL (1.3-7.7); Neutrophils % (A) 84 %; Platelet Count 143 k/uL (150-450); RBC 3.03 m/uL (4.30-5.90); WBC 9.4 k/uL (3.8-10.6)
[2023-06-24 15:07] LABS: African American GFR (CKD) 8 (>60 ml/min/1.73 sqM); Anion Gap 10 mmol/L; Blood Urea Nitrogen 44 mg/dL (9-20); Calcium 9.4 mg/dL (8.4-10.2); Carbon Dioxide 29 mmol/L (22-30); Chloride 97 mmol/L (98-107); Glucose 102 mg/dL (74-99); Non-African American GFR(CKD) 7 (>60 ml/min/1.73 sqM); Potassium 3.6 mmol/L (3.5-5.1); Sodium 136 mmol/L (137-145)
[2023-06-24] MEDS: MIDAZOLAM 2 MG/2 ML VIAL IVP ONE (16:05)
--- NOTE | 2023-06-24 16:26 | P.ANPRN ---
Procedure Note - Anesthesia - Nerve Block Performed Other (see comment) Time Out Performed: Yes (LEFT FEMORAL NERVE AT GROIN BLOCK) Date of Procedure: 06/24/23 Procedure Start Time: 16:05 Procedure Stop Time: 16:12 Location of Patient: PreOp Indication: Acute Post-Operative Pain, Analgesia, Requested by Surgeon Sedation Type: Sedate with meaningful contact maintained Preparation: Sterile Prep Position: Supine Catheter: None Needle Types: Pajunk Needle Gauge: 21 Ultrasound used to visualize needle placement: Yes Ultrasound used to observe medication spread: Yes Injectate: 0.5% Ropivacaine (see comment for volume) (Ropiv 20 ml + decadron 4mg) Blood Aspirated: No Pain Paresthesia on Injection Noted: No Resistance on Injection: Normal Image Stored and Saved: Yes Events: Uneventful and Well Tolerated
[2023-06-24] MEDS: SODIUM CHLORIDE 0.9% 500 ML 500 ML IV ONE (17:21)
[2023-06-24] MEDS ORDERED: MORPHINE SULFATE 2 MG/ML SYRINGE IVP PRN ×2 (17:43)
[2023-06-24] MEDS ORDERED: MORPHINE SULFATE 4 MG/ML SYRINGE IV PRN (17:43)
[2023-06-24] MEDS ORDERED: ONDANSETRON 4 MG/2 ML VIAL IVP PRN (17:43)
[2023-06-24] MEDS ORDERED: NALOXONE 0.4 MG/ML 1 ML VIAL IV PRN (17:43)
[2023-06-24] MEDS ORDERED: MAGNESIUM HYDROXIDE 2,400 MG/30 ML CUP PO PRN (17:43)
[2023-06-24] MEDS ORDERED: ACETAMINOPHEN TAB 325 MG TAB PO PRN ×2 (17:51→21:39)
--- NOTE | 2023-06-24 18:57 | P.OP ---
Date of Procedure: 06/24/23 Preoperative Diagnosis: ruptured quadriceps tendon left knee Postoperative Diagnosis: ruptured quadriceps tendon left knee Procedure(s) Performed: open repair quadriceps tendon left knee Anesthesia: RUDDY Surgeon: Benjamín Gonzalez Information Systems Operator #1: Meredith Moreno Estimated Blood Loss (ml): 50 Pathology: none sent Condition: stable Disposition: PACU Indications for Procedure: this is a 53-year-old gentleman that sustained a fall at home proximally 2 weeks ago. He was originally admitted to the hospital with significant medical comorbidities. At that time he was not a candidate for surgical repair of his tendon. He has since stabilized medically and is now a candidate to have his quadriceps tendon repaired. Informed consent was obtained. Operative Findings: the operative findings are consistent with a rupture of the distal quadriceps tendon of the left leg. Description of Procedure: The patient was seen in the preoperative area, the consent was reviewed and the operative site was marked with a skin marker. The patient verified the procedure and the operative site. The patient was then brought to the operating room and positioned on the operating room table in the supine position. Preoperative antibiotics were given intravenously. A general anesthetic was administered by the anesthesia department. Care was taken to make sure that all pressure points were adequately padded. A tourniquet was placed on the upper thigh and the lower extremity was prepped with ChloraPrep and draped in usual sterile fashion. A universal time-out was then performed which confirmed the patient's name, surgical site, ALLERGIES, and consent. The lower extremity was then exsanguinated and tourniquet was inflated to 250 mmHg. A standard anterior midline approach to the knee was performed. The skin and subcutaneous tissue were sharply dissected down to the quadriceps tendon. The tendon rupture was readily visualized. the tendon edges were debrided and the #5 FiberWire was stitched in the distal tendon. Next drill holes were placed and the patella and the ends of the suture were passed through the drill holes from proximal lateral to distal. The tendon was then reduced to its in sertion site at the superior pole patella, and the FiberWire was tied over the bone bridge of the patella. Additional 0 Vicryl sutures were placed in the retinaculum and any other area that they could be placed. The tendon was repair was then visualized and found to be a solid repair. The tourniquet was released and hemostasis was obtained. The knee was irrigated. The fascia was then closed with 0 Vicryl followed by #2 strata fix suture. The subcutaneous tissue was closed with 3-0 Vicryl and 3-0 strata fix. Exofin glue was used for the skin and placed. After the glue had dried, and Optafoam silver impregnated dressing was applied. a long leg cast was then applied with the patient's knee in full extension with the bony prominences well-padded with ABDs pads. Patient was then transferred to the stretcher and taken to recovery room in stable condition. Sponge and needle counts were correct. The food trades assistants JOCY Vigil was required due the complexity surgery and the need for a skilled rn medical surgical. She assisted in positioning, draping, retraction, and closure of the wound.
[2023-06-24] MEDS: Pre Op ABX Message 1 EACH MISC MISCELLANE ONE (21:23)
[2023-06-24] MEDS: SENNOSIDES-DOCUSATE SODIUM 1 EACH TAB PO SCH (21:49)
[2023-06-24] MEDS: AMIODARONE 200 MG TAB PO SCH (22:02)
[2023-06-24] MEDS: MONTELUKAST 10 MG TAB PO SCH (22:02)
[2023-06-24] MEDS: SIMETHICONE 80 MG CHEWABLE PO PRN (22:02)
[2023-06-24] MEDS: METOPROLOL TARTRATE 25 MG TAB PO SCH (22:02)
[2023-06-24] MEDS: SODIUM CHLORIDE 0.9% 1,000 ML IV SCH (22:29)
[2023-06-24] MEDS: HYDROcodone/APAP 5-325MG 1 EACH TAB PO PRN (23:39)
--- NOTE | 2023-06-24 23:45 | XR ---
EXAM: XR chest 1V portable CLINICAL INDICATION:Male, 53 years old with history of Hypoxia; [facility] COMPARISON: CT chest 05/28/2023 TECHNIQUE: Chest single view. FINDINGS: Lines/tubes/devices: None. Cardiomediastinum: Cardiac silhouette appears enlarged. Unremarkable mediastinal silhouette. Mildly tortuous aorta. Vasculature: No increased pulmonary vasculature. Lungs/pleura: No consolidation, sizeable effusion, or visible pneumothorax. Mildly coarsened interstitial lung jeremy ings, likely chronic changes. Bones/soft tissues: Bony thorax appears grossly intact as seen. Regional soft tissues appear unremarkable. IMPRESSION: Cardiomegaly without evidence of failure. No acute pulmonary infiltrate.
[2023-06-25] MEDS: LEVOTHYROXINE 50 MCG TAB PO SCH (05:58)
[2023-06-25] MEDS: allopurinoL 100 MG TAB PO SCH (09:17)
[2023-06-25] MEDS: predniSONE 10 MG TAB PO SCH (09:17)
[2023-06-25] MEDS: HEPARIN SODIUM,PORCINE 5,000 UNIT/ML 1 ML VIAL SQ SCH (09:19)
[2023-06-25] MEDS: ATORVASTATIN 20 MG TAB PO SCH (09:20)
[2023-06-25] MEDS: FLUDROCORTISONE 0.1 MG TAB PO SCH (09:21)
--- NOTE | 2023-06-25 10:15 | P.PN ---
Subjective Progress Note Date: 06/25/23 This is a this is a 53-year-old male who is status post open repair of the left quadriceps tendon. This is postoperative day #1 and patient is seen and evaluated at bedside with Dr. Benjamín Gonzalez. Patient states that his pain is well-controlled and he is able to put weight on the left leg without any pain. Patient states that he is tolerating his cast well. Objective - Vital Signs Vital signs: Vital Signs Temp 98.0 F 06/25/23 06:47 Pulse 53 L 06/25/23 06:47 Resp 18 06/25/23 06:47 BP 131/62 06/25/23 06:47 Pulse Ox 98 06/25/23 06:47 FiO2 Intake & Output 06/24/23 06/25/23 06/25/23 18:59 06:59 18:59 Intake Total 700 0 Output Total 50 Balance 650 0 Weight 82.8 kg 82.8 kg Intake: IV 700 0 Output: Estimated Blood Loss 50 Other: # Bowel Movements 1 - Exam Vital signs are stable. Patient is in no acute distress and is alert and oriented 3. Long-leg cast is clean, dry and intact. Sensation intact. Neurovascular status and circulatory status are intact. - Labs CBC & Chem 7: 06/24/23 14:39 06/24/23 14:39 Labs: Abnormal Lab Results - Last 24 Hours (Table) 06/24/23 06/24/23 Range/Units 14:39 14:39 RBC 3.03 L (4.30-5.90) m/uL Hgb 9.4 L (13.0-17.5) gm/dL Hct 29.4 L (39.0-53.0) % RDW 16.0 H (11.5-15.5) % Plt Count 143 L (150-450) k/uL Neutrophils # 7.9 H (1.3-7.7) k/uL Lymphocytes # 0.8 L (1.0-4.8) k/uL Sodium 136 L (137-145) mmol/L Chloride 97 L (98-107) mmol/L BUN 44 H (9-20) mg/dL Creatinine 7.68 H* (0.66-1.25) mg/dL Glucose 102 H (74-99) mg/dL Assessment and Plan Assessment: Status post open repair of left quadriceps tendon. (1) Spontaneous rupture of other tendons, left lower leg Current Visit: Yes Status: Acute Code(s): M66.862 - SPONTANEOUS RUPTURE OF OTHER TENDONS, LEFT LOWER LEG SNOMED Code(s): 239241591 Plan: 1. Weightbearing as tolerated to the left lower extremity. Keep long-leg cast clean, dry and intact. 2. Continue routine postoperative care and pain control. 3. Appreciate input from internal medicine. Anticoagulation per internal medicine. 4. Continue physical therapy. 5. Planning for discharge home tomorrow.
[2023-06-25 11:19] LABS: Basophils # (A) 0 X 10*3/uL (0.00-0.10); Basophils % (A) 0 %; Eosinophils # (A) 0 X 10*3/uL (0.04-0.35); Eosinophils % (A) 0 %; HCT 25.9 % (39.6-50.0); HGB 8.1 g/dL (13.0-17.0); Lymphocytes # (A) 0.39 X 10*3/uL (0.90-5.00); Lymphocytes % (A) 6.7 %; MCH 30.6 pg (27.0-32.0); MCHC 31.3 g/dL (32.0-37.0); MCV 97.7 FL (80.0-97.0); Mean Platelet Volume 9.8 FL (9.5-12.2); Monocytes # (A) 0.14 X 10*3/uL (0.20-1.00); Monocytes % (A) 2.4 %; NRBC Per 100 WBC 0 X 10*3/uL (0.00-0.01); Neutrophils # (A) 5.23 X 10*3/uL (1.80-7.70); Neutrophils % (A) 90.4 %; Platelet Count 136 X 10*3/uL (140-440); RBC 2.65 X 10*6/uL (4.40-5.60); RDW 15.8 % (11.5-14.5); WBC 5.79 X 10*3/uL (4.50-10.00)
--- NOTE | 2023-06-25 11:22 | P.NPCON ---
History of Present Illness - Reason for Consult end stage renal disease - History of Present Illness Reason for consultation: End-stage renal disease History of present illness: Patient is a 53-year-old male seen in renal consultation for end-stage renal disease. He is maintained on home hemodialysis. Last hemodialysis was on Friday. Patient had sustained a fall and ruptured left knee quadriceps tendon. He underwent repair of the tendon yesterday. He is currently working with physical therapy. Denies chest pain or shortness of breath. No vomiting or diarrhea. No fever or chills. Hemodynamically stable. Hemoglobin 9.4 yesterday. Patient has a femoral catheter for dialysis. Patient also has history of retroperitoneal bleed for which she has required blood transfusions. Denies any active bleeding at this time. Patient also has history of A-fib. Patient has chronic hypotension and is maintained on midodrine as well as Florinef. He is also maintained on prednisone chronically. Vital signs are stable. General: No acute distress. HEENT: Head exam is unremarkable. LUNGS: No audible rhonchi or wheezes. HEART: Rate and Rhythm are regular. ABDOMEN: Nontender. Obese. EXTREMITITES: No edema. Past Medical History Past Medical History: Atrial Fibrillation, Dialysis, Eye Disorder, GERD/Reflux, Renal Disease, Seizure Disorder, Thyroid Disorder Additional Past Medical History / Comment(s): Recent fall with quadriceps tendon rupture. Gout. Bruises easily. 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 Kidney transplant in 1998. Hemodialysis [facility] at home. Hx anemia with blood transfusion. 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 Hx diverticulitis. Hx Shingles 02/2021. Hx approximately 7 grand mal seizures in 2021 when on dialysis, unknown etiology, none since. Has nonactive left arm dialysis graft and functioning right groin dialysis port. Frequent headaches. Low blood pressure at times. History of Any Multi-Drug Resistant Organisms: None Reported Additional Past Surgical History / Comment(s): Fistula placement, thyroidectomy, kidney transplant, toenails removed. Past Anesthesia/Blood Transfusion Reactions: No Reported Reaction Additional Past Anesthesia/Blood Transfusion Reaction / Comment(s): Blood transfusion - had no issues. Past Psychological History: No Psychological Hx Reported Additional Psychological History / Comment(s): Pt resides with his mother who is his caregiver. Pt ambulates without device/he memorizes where furniture is placed. Mother performs hemodialysis 4 days a week. 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 No home care. Smoking Status: Never smoker Past Alcohol Use History: None Reported Past Drug Use History: None Reported - Past Family History Mother Family Medical History: Fibromyalgia, Osteoarthritis (OA) Additional Family Medical History / Comment(s): Lupus Family Family Medical History: No Reported History Additional Family Medical History / Comment(s): ETOH abuse Medications and Allergies Home Medications Medication Instructions Recorded Confirmed Type Levothyroxine Sodium [Synthroid] 50 mcg PO QAM 12/18/17 06/24/23 History Montelukast [Singulair] 10 mg PO HS 12/18/17 06/24/23 History predniSONE 10 mg PO DAILY 04/25/21 06/24/23 History Atorvastatin [Lipitor] 20 mg PO QAM 10/15/22 06/24/23 History Midodrine HCl [ProAmatine] 10 mg PO DIRECTED PRN 10/15/22 06/24/23 History calcitrioL 0.25 mcg PO SUTUWETHSA 10/15/22 06/24/23 History calcitrioL 0.5 mcg PO MOFR 10/15/22 06/24/23 History Omeprazole [PriLOSEC] 20 mg PO PC-SUPPER 04/25/23 06/24/23 History methocarbamoL [Robaxin-750] 1,500 mg PO TID PRN 7 Days #42 tab 05/28/23 06/24/23 Rx Amiodarone [Cordarone] 200 mg PO BID #60 tab 06/06/23 06/24/23 Rx Metoprolol Tartrate [Lopressor] 25 mg PO BID #60 tab 06/06/23 06/24/23 Rx Simethicone Chew [Mylicon Chew] 40 mg PO QID PRN #30 tab 06/06/23 06/24/23 Rx Acetaminophen Tab [Tylenol] 650 mg PO Q4HR PRN 06/23/23 06/24/23 History Fludrocortisone [Florinef] 0.1 mg PO QAM 06/23/23 06/24/23 History allopurinoL 100 mg PO QAM 06/23/23 06/24/23 History HYDROcodone/APAP 5-325MG [Gordon 1 - 2 tab PO Q6HR PRN #32 tab 06/25/23 Rx 5-325] Sennosides [Senokot] 2 tab PO DAILY PRN #60 tablet 06/25/23 Rx Allergies Allergy/AdvReac Type Severity Reaction Status Date / Time adhesive tape Allergy Itching Verified 06/24/23 14:09 codeine Allergy Rash/Hives Verified 06/24/23 14:09 cyclobenzaprine Allergy Rash/Hives Verified 06/24/23 14:09 [From Flexeril] diphenhydramine Allergy Anaphylaxis Verified 06/24/23 14:09 [From Benadryl] hydromorphone [From Dilaudid] Allergy Rash/Hives Verified 06/24/23 14:09 hydroxyzine Allergy Anaphylaxis Verified 06/24/23 14:09 Iodinated Contrast Media Allergy Anaphylaxis Verified 06/24/23 14:09 [Iodinated Contrast- Oral and IV Dye] pantoprazole [From Protonix] Allergy Anaphylaxis Verified 06/24/23 14:09 Penicillins Allergy Rash/Hives Verified 06/24/23 14:09 potassium chloride Allergy Rash/Hives Verified 06/24/23 14:09 pregabalin [From Lyrica] Allergy Anaphylaxis Verified 06/24/23 14:09 sevelamer Allergy Rash/Hives Verified 06/24/23 14:09 warfarin [From Coumadin] Allergy Anaphylaxis Verified 06/24/23 14:09 acetaminophen [From Vicodin] AdvReac Nausea & Verified 06/24/23 14:09 Vomiting aripiprazole [From Abilify] AdvReac Abdominal Verified 06/24/23 14:09 Pain aztreonam AdvReac Unknown Verified 06/24/23 14:09 calcitriol AdvReac Unknown Verified 06/24/23 14:09 cefadroxil AdvReac Unknown Verified 06/24/23 14:09 enalapril AdvReac Unknown Verified 06/24/23 14:09 hydrocodone [From Vicodin] AdvReac Nausea & Verified 06/24/23 14:09 Vomiting Influenza Virus Vaccines AdvReac Unknown Verified 06/24/23 14:09 levofloxacin [From Levaquin] AdvReac Abdominal Verified 06/24/23 14:09 Pain meloxicam [From Mobic] AdvReac Abdominal Verified 06/24/23 14:09 Pain morphine AdvReac Unknown Verified 06/24/23 14:09 propoxyphene AdvReac Unknown Verified 06/24/23 14:09 Sulfa (Sulfonamide AdvReac Vomiting Verified 06/24/23 14:09 Antibiotics) tramadol AdvReac Unknown Verified 06/24/23 14:09 Physical Exam Vitals: Vital Signs Temp Pulse Resp BP BP Pulse Ox 06/25/23 10:32 20 06/25/23 06:47 98.0 F 53 L 18 131/62 98 06/25/23 06:03 15 94 L 06/25/23 01:45 97.6 F 56 L 20 102/64 98 06/25/23 01:04 98.4 F 55 L 20 100/70 96 06/24/23 23:00 65 129/80 93 L 06/24/23 22:50 62 123/74 96 06/24/23 22:45 62 108/67 95 06/24/23 22:30 92 110/72 89 L 06/24/23 22:15 96 118/76 90 L 06/24/23 22:00 96 116/77 92 L 06/24/23 21:45 61 131/76 90 L 06/24/23 21:30 67 113/65 90 L 06/24/23 21:15 98 177/93 86 L 06/24/23 21:00 94 182/81 89 L 06/24/23 20:20 98.0 F 64 20 110/60 91 L 06/24/23 20:00 65 16 138/76 99 06/24/23 19:45 68 16 144/73 94 L 06/24/23 19:28 97 F L 115 H 16 148/68 94 L 06/24/23 17:10 68 16 102/57 100 06/24/23 17:02 64 16 105/59 100 06/24/23 16:52 65 16 90/53 98 06/24/23 16:35 89 16 99/51 96 06/24/23 16:29 92 16 95/58 97 06/24/23 16:21 65 16 102/50 97 06/24/23 14:23 98.0 F 65 16 122/56 94 L 06/24/23 14:09 98.0 F 64 18 122/56 94 L Intake and Output 06/24/23 06/25/23 06/25/23 22:59 06:59 14:59 Intake Total 150 Output Total 50 Balance 100 Intake: IV 150 Output: Estimated Blood Loss 50 Other: # Bowel Movements 1 Weight 82.8 kg Results - Lab Results Most recent lab results Calcium 9.4 mg/dL (8.4-10.2) 06/24/23 14:39 06/24/23 14:39 06/24/23 14:39 Assessment and Plan Plan: Assessment: 1. End-stage renal disease maintained on home hemodialysis via femoral catheter. 2. Status post fall with ruptured left knee quadriceps tendon status post surgical repair June 24, 2023. 3. Chronic hypotension maintained on prednisone, Florinef as well as midodrine. 4. Chronic kidney disease mineral bone disease maintained on calcitriol and phosphate binders outpatient. 5. History of retroperitoneal bleed. Hemoglobin 9.4 yesterday. 6. History of failed renal transplant. Plan: Hemodialysis today. Check iron studies. Thank you for the consultation. I will continue to follow the patient with you during his hospital stay.
[2023-06-25] MEDS: chlorproMAZINE 25 MG TAB PO STA (12:56)
[2023-06-25] MEDS: MIDODRINE 5 MG TAB PO PRN (13:28)
[2023-06-25 16:53] LABS: % Iron Saturation 8.6 (15.00-50.00)
[2023-06-25] MEDS: HYDROcodone/APAP 5-325MG 1 EACH TAB PO PRN (17:04)
[2023-06-25] MEDS: NON FORMULARY DRUG (Omeprazole 20 MG Capsule.Dr) PO SCH (19:18)
[2023-06-25] MEDS: MORPHINE SULFATE 4 MG/ML SYRINGE IV PRN (20:37)
--- NOTE | 2023-06-26 00:38 | P.CONS ---
History of Present Illness - Reason for Consult Consult date: 06/25/23 Medical management - Chief Complaint Quadricep tendon repair left knee - History of Present Illness Patient is a 51-year-old male with a past medical history of recent fall and left lateral abdominal wall large ecchymosis, chronic atrial fibrillation not on anticoagulation due to frequent falls, legally blind, ESRD on hemodialysis Friday and Friday, hypothyroidism, seizure disorder, history of renal transplant failure and other multiple medical problems was admitted to the hospital for elective left knee quadriceps tendon on repair. Patient is status post open repair of quadriceps tendon on left knee by orthopedic surgery. Patient does have left knee cast. Denies any complaints of pain. Undergoing hemodialysis as per schedule. No complaints of chest pain or shortness of breath. No nausea vomiting abdominal pain or diarrhea. No dysuria or hematuria. No dizziness or lig htheadedness. Laboratory data showed WBC 9.4 hemoglobin 9.4 and platelets 143 Sodium 136 potassium 3.6 chloride 97 bicarb is 29 BUN 44 and creatinine 7.68 and blood sugar 102 Review of Systems Constitutional: Patient denies any fever or chills . No generalized weakness or weight loss. Abdomen: Patient denied nausea vomiting and diarrhea and abdominal pain. Cardiovascular: Patient denies any chest pain or short of breath no palpitations. Respiratory: patient denied any cough is from production. No shortness of breath Neurologic: Patient denied any numbness or tingling headache. Musculoskeletal: Patient denies any complaints of joint swelling or deformity. Skin: Negative Psychiatric: Negative Endocrine: No heat or cold intolerance. No recent weight gain. Genitourinary: No dysuria or hematuria. All other 14 point ROS negative except the above Past Medical History Past Medical History: Atrial Fibrillation, Dialysis, Eye Disorder, GERD/Reflux, Renal Disease, Seizure Disorder, Thyroid Disorder Additional Past Medical History / Comment(s): Recent fall with quadriceps tendon rupture. Gout. Bruises easily. 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 Kidney transplant in 1998. Hemodialysis [facility] at home. Hx anemia with blood transfusion. 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 Hx diverticulitis. Hx Shingles 02/2021. Hx approximately 7 grand mal seizures in 2021 when on dialysis, unknown etiology, none since. Has nonactive left arm dialysis graft and functioning right groin dialysis port. Frequent headaches. Low blood pressure at times. History of Any Multi-Drug Resistant Organisms: None Reported Additional Past Surgical History / Comment(s): Fistula placement, thyroidectomy, kidney transplant, toenails removed. Past Anesthesia/Blood Transfusion Reactions: No Reported Reaction Additional Past Anesthesia/Blood Transfusion Reaction / Comm: Blood transfusion - had no issues. Past Psychological History: No Psychological Hx Reported Additional Psychological History / Comment(s): Pt resides with his mother who is his caregiver. Pt ambulates without device/he memorizes where furniture is placed. Mother performs hemodialysis 4 days a week. 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 No home care. Smoking Status: Never smoker Past Alcohol Use History: None Reported Past Drug Use History: None Reported - Past Family History Mother Family Medical History: Fibromyalgia, Osteoarthritis (OA) Additional Family Medical History / Comment(s): Lupus Family Family Medical History: No Reported History Additional Family Medical History / Comment(s): ETOH abuse Medications and Allergies Home Medications Medication Instructions Recorded Confirmed Type Levothyroxine Sodium [Synthroid] 50 mcg PO QAM 12/18/17 06/24/23 History Montelukast [Singulair] 10 mg PO HS 12/18/17 06/24/23 History predniSONE 10 mg PO DAILY 04/25/21 06/24/23 History Atorvastatin [Lipitor] 20 mg PO QAM 10/15/22 06/24/23 History Midodrine HCl [ProAmatine] 10 mg PO DIRECTED PRN 10/15/22 06/24/23 History calcitrioL 0.25 mcg PO SUTUWETHSA 10/15/22 06/24/23 History calcitrioL 0.5 mcg PO MOFR 10/15/22 06/24/23 History Omeprazole [PriLOSEC] 20 mg PO PC-SUPPER 04/25/23 06/24/23 History methocarbamoL [Robaxin-750] 1,500 mg PO TID PRN 7 Days #42 tab 05/28/23 06/24/23 Rx Amiodarone [Cordarone] 200 mg PO BID #60 tab 06/06/23 06/24/23 Rx Metoprolol Tartrate [Lopressor] 25 mg PO BID #60 tab 06/06/23 06/24/23 Rx Simethicone Chew [Mylicon Chew] 40 mg PO QID PRN #30 tab 06/06/23 06/24/23 Rx Acetaminophen Tab [Tylenol] 650 mg PO Q4HR PRN 06/23/23 06/24/23 History Fludrocortisone [Florinef] 0.1 mg PO QAM 06/23/23 06/24/23 History allopurinoL 100 mg PO QAM 06/23/23 06/24/23 History HYDROcodone/APAP 5-325MG [[place] 1 - 2 tab PO Q6HR PRN #32 tab 06/25/23 Rx 5-325] Sennosides [Senokot] 2 tab PO DAILY PRN #60 tablet 06/25/23 Rx Allergies Allergy/AdvReac Type Severity Reaction Status Date / Time adhesive tape Allergy Itching Verified 06/24/23 14:09 codeine Allergy Rash/Hives Verified 06/24/23 14:09 cyclobenzaprine Allergy Rash/Hives Verified 06/24/23 14:09 [From Flexeril] diphenhydramine Allergy Anaphylaxis Verified 06/24/23 14:09 [From Benadryl] hydromorphone [From Dilaudid] Allergy Rash/Hives Verified 06/24/23 14:09 hydroxyzine Allergy Anaphylaxis Verified 06/24/23 14:09 Iodinated Contrast Media Allergy Anaphylaxis Verified 06/24/23 14:09 [Iodinated Contrast- Oral and IV Dye] pantoprazole [From Protonix] Allergy Anaphylaxis Verified 06/24/23 14:09 Penicillins Allergy Rash/Hives Verified 06/24/23 14:09 potassium chloride Allergy Rash/Hives Verified 06/24/23 14:09 pregabalin [From Lyrica] Allergy Anaphylaxis Verified 06/24/23 14:09 sevelamer Allergy Rash/Hives Verified 06/24/23 14:09 warfarin [From Coumadin] Allergy Anaphylaxis Verified 06/24/23 14:09 acetaminophen [From Vicodin] AdvReac Nausea & Verified 06/24/23 14:09 Vomiting aripiprazole [From Abilify] AdvReac Abdominal Verified 06/24/23 14:09 Pain aztreonam AdvReac Unknown Verified 06/24/23 14:09 calcitriol AdvReac Unknown Verified 06/24/23 14:09 cefadroxil AdvReac Unknown Verified 06/24/23 14:09 enalapril AdvReac Unknown Verified 06/24/23 14:09 hydrocodone [From Vicodin] AdvReac Nausea & Verified 06/24/23 14:09 Vomiting Influenza Virus Vaccines AdvReac Unknown Verified 06/24/23 14:09 levofloxacin [From Levaquin] AdvReac Abdominal Verified 06/24/23 14:09 Pain meloxicam [From Mobic] AdvReac Abdominal Verified 06/24/23 14:09 Pain morphine AdvReac Unknown Verified 06/24/23 14:09 propoxyphene AdvReac Unknown Verified 06/24/23 14:09 Sulfa (Sulfonamide AdvReac Vomiting Verified 06/24/23 14:09 Antibiotics) tramadol AdvReac Unknown Verified 06/24/23 14:09 Physical Exam Vitals: Vital Signs Temp Pulse Resp BP BP Pulse Ox 06/25/23 10:32 20 06/25/23 06:47 98.0 F 53 L 18 131/62 98 06/25/23 06:03 15 94 L 06/25/23 01:45 97.6 F 56 L 20 102/64 98 06/25/23 01:04 98.4 F 55 L 20 100/70 96 06/24/23 23:00 65 129/80 93 L 06/24/23 22:50 62 123/74 96 06/24/23 22:45 62 108/67 95 06/24/23 22:30 92 110/72 89 L 06/24/23 22:15 96 118/76 90 L 06/24/23 22:00 96 116/77 92 L 06/24/23 21:45 61 131/76 90 L 06/24/23 21:30 67 113/65 90 L 06/24/23 21:15 98 177/93 86 L 06/24/23 21:00 94 182/81 89 L 06/24/23 20:20 98.0 F 64 20 110/60 91 L 06/24/23 20:00 65 16 138/76 99 06/24/23 19:45 68 16 144/73 94 L 06/24/23 19:28 97 F L 115 H 16 148/68 94 L 06/24/23 17:10 68 16 102/57 100 06/24/23 17:02 64 16 105/59 100 06/24/23 16:52 65 16 90/53 98 06/24/23 16:35 89 16 99/51 96 06/24/23 16:29 92 16 95/58 97 06/24/23 16:21 65 16 102/50 97 06/24/23 14:23 98.0 F 65 16 122/56 94 L 06/24/23 14:09 98.0 F 64 18 122/56 94 L Intake and Output 06/24/23 06/25/23 06/25/23 22:59 06:59 14:59 Intake Total 150 Output Total 50 Balance 100 Intake: IV 150 Output: Estimated Blood Loss 50 Other: # Bowel Movements 1 Weight 82.8 kg PHYSICAL EXAMINATION: Patient is lying in the bed comfortably, no acute distress, awake alert and oriented.. HEENT: Normocephalic. Neck is supple. Pupils reactive. Nostrils clear. Oral cavity is moist. Neck reveals no JVD, carotid bruits, or thyromegaly. CHEST EXAMINATION: Trachea is central. Symmetrical expansion. Bibasilar diminished sounds. No wheezing or rhonchi.. CARDIAC: Normal S1, S2 with no gallops. No murmurs ABDOMEN: Soft. Bowel sounds normal. No organomegaly. No abdominal bruits. Extremities: Bilateral lower extremity trace edema. No clubbing or cyanosis Neurologically awake, alert, oriented x3 with well-coordinated movements. No focal deficits noted Skin: No rash or skin lesions. Psychiatric: Coperative. Nonsuicidal Musculoskeletal: No joint swelling or deformity. Left lower extremity cast in place. Results CBC & Chem 7: 06/25/23 05:34 06/24/23 14:39 Labs: Abnormal Lab Results - Last 24 Hours (Table) 06/24/23 06/24/23 06/25/23 Range/Units 14:39 14:39 05:34 RBC 3.03 L 2.65 L (4.30-5.90) m/uL Hgb 9.4 L 8.1 L (13.0-17.5) gm/dL Hct 29.4 L 25.9 L (39.0-53.0) % MCV 97.7 H (80.0-97.0) FL MCHC 31.3 L (32.0-37.0) g/dL RDW 16.0 H 15.8 H (11.5-15.5) % Plt Count 143 L 136 L (150-450) k/uL Neutrophils # 7.9 H (1.3-7.7) k/uL Lymphocytes # 0.8 L 0.39 L (1.0-4.8) k/uL Monocytes # 0.14 L (0.20-1.00) X 10*3/uL Eosinophils # 0 L (0.04-0.35) X 10*3/uL Sodium 136 L (137-145) mmol/L Chloride 97 L (98-107) mmol/L BUN 44 H (9-20) mg/dL Creatinine 7.68 H* (0.66-1.25) mg/dL Glucose 102 H (74-99) mg/dL Assessment and Plan Assessment: Status post open repair, quadriceps tendon of the left knee. Postoperative day 1 Recent history of fall with large ecchymosis over the left lateral abdominal wall and hypovolemic shock and also noted to have left knee swelling and MRI showed rupture of quadriceps tendon along with moderate-sized effusion within the joint. Patient was in the hospital from 05/31/2023 to 06/06/2023. Generalized weakness and frequent falls related to legal blindness and comorbidities. ESRD on hemodialysis Friday and Friday Anemia of chronic disease with hemoglobin around 9 at baseline History of renal transplant in 1998 Chronic atrial fibrillation not on anticoagulation due to frequent falls and anemia Severely calcified aortic valve, moderate mitral calcification and mild to moderate MR Legally blind Hypothyroidism DVT prophylaxis with heparin subcu while in the hospital GI prophylaxis with PPI Plan: Patient will be continued on telemonitoring. Continue with amiodarone and metoprolol and other home medications including levothyroxine and prednisone 10 mg daily. Patient is also on midodrine as needed. Also on Florinef. Not on anticoagulation due to frequent falls and legally blind. Patient is undergoing hemodialysis as per schedule. Discussed with the patient and his mother at bedside in detail. Continue to follow closely. Prognosis is guarded with multimedical problems and comorbid conditions. Thank you for your consult. Time with Patient: Greater than 30
[2023-06-26 07:21] VITALS: BP 113/77; PULSE 94; RESP 18; TEMP 98.4
--- NOTE | 2023-06-26 11:41 | P.PN ---
Subjective Patient is seen in follow-up for end-stage renal disease. He is maintained on home hemodialysis. Tolerated 1.3 L ultrafiltration yesterday. No active complaints at this time. Vital signs are stable. General: No acute distress. HEENT: Head exam is unremarkable. LUNGS: No audible rhonchi or wheezes. HEART: Rate and Rhythm are regular. ABDOMEN: Nontender. EXTREMITITES: No edema. Objective - Vital Signs Vital signs: Vital Signs Temp 98.4 F 06/26/23 06:52 Pulse 94 06/26/23 06:52 Resp 18 06/26/23 06:52 BP 113/77 06/26/23 06:52 Pulse Ox 93 L 06/26/23 06:52 FiO2 Intake & Output 06/25/23 06/26/23 06/26/23 18:59 06:59 18:59 Intake Total 500 480 Output Total 1700 Balance -1200 480 Intake: Oral 480 Hemodialysis 500 Output: Hemodialysis 1700 Other: # Voids 0 3 - Labs CBC & Chem 7: 06/25/23 05:34 06/24/23 14:39 Labs: Abnormal Lab Results - Last 24 Hours (Table) 06/25/23 Range/Units 05:34 Iron 16 L (65-175) UG/DL TIBC 186 L (228-460) UG/DL % Saturation 8.60 L (15.00-50.00) Transferrin 133.0 L (204.0-354.0) mg/dL Ferritin 698.0 H (22.0-322.0) ng/mL Assessment and Plan Plan: Assessment: 1. End-stage renal disease maintained on home hemodialysis via femoral catheter. 2. Status post fall with ruptured left knee quadriceps tendon status post surgical repair June 24, 2023. 3. Chronic hypotension maintained on prednisone, Florinef as well as midodrine. 4. Chronic kidney disease mineral bone disease maintained on calcitriol and phosphate binders outpatient. 5. History of retroperitoneal bleed. Hemoglobin 8.1 yesterday. Iron deficiency noted. 6. History of failed renal transplant. Plan: Hemodialysis tomorrow. Add IV iron. Add Aranesp.
--- NOTE | 2023-06-26 11:44 | P.DS ---
Providers Expected date of discharge: 06/26/23 Attending physician: Benjamín Gonzalez Consults: 06/24/23 17:43 Consult Physician Routine Consulting Provider: Rob Storm Consult Reason/Comments: medical management and anticoagulation Do you want consulting provider notified?: Yes 06/25/23 09:29 Consult Physician Urgent Consulting Provider: Mychal Jerome Consult Reason/Comments: esrd Do you want consulting provider notified?: Yes Primary care physician: Mychal Jerome - Discharge Diagnosis(es) (1) Spontaneous rupture of other tendons, left lower leg Current Visit: Yes Status: Acute Hospital Course: This is a 53-year-old male who sustained a rupture of his left quadriceps tendon after a fall approximately 2 weeks ago. The patient has significant comorbidities so he was unable to have surgery initially. The patient has been followed as an outpatient. After discussion and consideration patient consented to proceed with open repair of left quadriceps tendon. The patient was seen preoperatively by Dr. Gonzalez and medically cleared for surgery. Patient is admitted to [facility] on 06/24/2023 for open repair of left quadriceps tendon. The procedure was performed without complication or sequelae. The patient is doing well postoperatively. Labs and vital signs are stable on day of discharge. On day of discharge patient's long-leg cast is clean, dry and intact. There is no drainage noted at this time. Patient has good motion of the toes of the left foot. Neurovascular status to the left lower extremity is intact. Patient is discharged home in good condition. Please see med rec for accurate list of home medications. Plan - Discharge Summary Discharge Rx Participant: No New Discharge Prescriptions: New HYDROcodone/APAP 5-325MG [Elsberry 5-325] 1 - 2 tab PO Q6HR PRN #32 tab PRN Reason: Pain Sennosides [Senokot] 2 tab PO DAILY PRN #60 tablet PRN Reason: Constipation No Action Montelukast [Singulair] 10 mg PO HS Levothyroxine Sodium [Synthroid] 50 mcg PO QAM Omeprazole [PriLOSEC] 20 mg PO PC-SUPPER Metoprolol Tartrate [Lopressor] 25 mg PO BID #60 tab allopurinoL 100 mg PO QAM predniSONE 10 mg PO DAILY calcitrioL 0.25 mcg PO SUTUWETHSA calcitrioL 0.5 mcg PO MOFR Midodrine HCl [ProAmatine] 10 mg PO DIRECTED PRN PRN Reason: Hypotension Atorvastatin [Lipitor] 20 mg PO QAM methocarbamoL [Robaxin-750] 1,500 mg PO TID PRN 7 Days #42 tab PRN Reason: Pain Simethicone Chew [Mylicon Chew] 40 mg PO QID PRN #30 tab PRN Reason: Bloating Amiodarone [Cordarone] 200 mg PO BID #60 tab Fludrocortisone [Florinef] 0.1 mg PO QAM Acetaminophen Tab [Tylenol] 650 mg PO Q4HR PRN PRN Reason: Pain/Headache Discharge Medication List Levothyroxine Sodium [Synthroid] 50 mcg PO QAM 12/18/17 [History] Montelukast [Singulair] 10 mg PO HS 12/18/17 [History] predniSONE 10 mg PO DAILY 04/25/21 [History] Atorvastatin [Lipitor] 20 mg PO QAM 10/15/22 [History] Midodrine HCl [ProAmatine] 10 mg PO DIRECTED PRN 10/15/22 [History] calcitrioL 0.25 mcg PO SUTUWETHSA 10/15/22 [History] calcitrioL 0.5 mcg PO MOFR 10/15/22 [History] Omeprazole [PriLOSEC] 20 mg PO PC-SUPPER 04/25/23 [History] methocarbamoL [Robaxin-750] 1,500 mg PO TID PRN 7 Days #42 tab 05/28/23 [Rx] Amiodarone [Cordarone] 200 mg PO BID #60 tab 06/06/23 [Rx] Metoprolol Tartrate [Lopressor] 25 mg PO BID #60 tab 06/06/23 [Rx] Simethicone Chew [Mylicon Chew] 40 mg PO QID PRN #30 tab 06/06/23 [Rx] Acetaminophen Tab [Tylenol] 650 mg PO Q4HR PRN 06/23/23 [History] Fludrocortisone [Florinef] 0.1 mg PO QAM 06/23/23 [History] allopurinoL 100 mg PO QAM 06/23/23 [History] HYDROcodone/APAP 5-325MG [Elsberry 5-325] 1 - 2 tab PO Q6HR PRN #32 tab 06/25/23 [Rx] Sennosides [Senokot] 2 tab PO DAILY PRN #60 tablet 06/25/23 [Rx] Follow up Appointment(s)/Referral(s): Benjamín Gonzalez DO [Doctor of Osteopathic Medicine] - 2 Weeks Activity/Diet/Wound Care/Special Instructions: Weightbearing as tolerated with a walker and cast shoe. Keep long-leg cast clean, dry and intact. Please follow up with [facility] and call with any questions or concerns, . Discharge Disposition: HOME SELF-CARE
[2023-06-26] MEDS ORDERED: SODIUM FERRIC GLUCONAT-SUCROSE 125 MG in SODIUM CHLORIDE 0.9% 100 ML IVPB SCH (11:45)
[2023-06-26] MEDS ORDERED: DARBEPOETIN ALFA 40 MCG/0.4 ML SYRINGE SQ SCH (11:45)
== END 2023-06-26 14:00 | disposition home or self-care (01) ==
LOC: OR 12:49 → 4SSUR 19:19 → OR 06-26 14:00
PROVIDERS: ATTEND Orthopaedic Surgery
DX: S86.912A Strain of unspecified muscle(s) and tendon(s) at lower leg level, left leg, initial encounter (principal); G89.18 Other acute postprocedural pain; N18.6 End stage renal disease; I48.91 Unspecified atrial fibrillation; I95.89 Other hypotension; G40.909 Epilepsy, unspecified, not intractable, without status epilepticus; E66.9 Obesity, unspecified; K21.9 Gastro-esophageal reflux disease without esophagitis; Z79.52 Long term (current) use of systemic steroids; Z94.0 Kidney transplant status; Z82.61 Family history of arthritis; Z79.890 Hormone replacement therapy; Z88.8 Allergy status to other drugs, medicaments and biological substances; Z88.5 Allergy status to narcotic agent; Z91.041 Radiographic dye allergy status; W19.XXXA Unspecified fall, initial encounter; Z88.0 Allergy status to penicillin; Z88.2 Allergy status to sulfonamides; Z79.899 Other long term (current) drug therapy
CPT/HCPCS: 97530; 97161; 64447; 82747; 80048; 82607; 82728; 83540; 83550; 85025 ×2; 71045; 27385; J2250; J2270; J1644 ×2; J1100; J0690 ×2; J2405; J7512 ×2; 90935

== ENCOUNTER 2023-06-29 11:11 | Inpatient (IN) | payer MEDICARE ==
--- NOTE | 2023-06-29 11:23 | ED ---
General Adult HPI - General Source: patient, family, RN notes reviewed Mode of arrival: ambulatory Limitations: no limitations <Mickie Chang - Last Filed: 06/29/23 11:20> <Debra Min - Last Filed: 06/30/23 22:26> - General Stated complaint: SOB Time Seen by Provider: 06/29/23 11:20 - History of Present Illness Initial comments: Quick note: 53-year-old male presenting to the ER with chief complaint of hiccups. Patient underwent knee surgery on Friday and has been having hiccups since. He states sometimes it is difficult to breathe due to the hiccups. (Mickie Chang) Is a 53-year-old male presents emergency department with a chief complaint of hiccups. Patient states that he underwent a surgery on and since he has returned home from surgery he has been experiencing intractable hiccups. Boyd rojas states that he is having some shortness of breath associated with this. He denies fevers, headaches, chest pain or pressure, palpitations. Patient states that he has tried multiple remedies at home with no relief of symptoms. (Debra Min) - Related Data Home Medications Medication Instructions Recorded Confirmed Levothyroxine Sodium [Synthroid] 50 mcg PO DAILY 12/18/17 06/29/23 Montelukast [Singulair] 10 mg PO HS 12/18/17 06/29/23 predniSONE 10 mg PO DAILY 04/25/21 06/29/23 Atorvastatin [Lipitor] 20 mg PO DAILY 10/15/22 06/29/23 Midodrine HCl [ProAmatine] 10 mg PO QID PRN 10/15/22 06/29/23 calcitrioL 0.25 mcg PO SUTUWETHSA 10/15/22 06/29/23 calcitrioL 0.5 mcg PO MOFR 10/15/22 06/29/23 Omeprazole [PriLOSEC] 20 mg PO PC-SUPPER 04/25/23 06/29/23 Acetaminophen Tab [Tylenol] 650 mg PO Q4HR PRN 06/23/23 06/29/23 Fludrocortisone [Florinef] 0.1 mg PO DAILY 06/23/23 06/29/23 allopurinoL 100 mg PO DAILY 06/23/23 06/29/23 Previous Rx's Medication Instructions Recorded methocarbamoL [Robaxin-750] 1,500 mg PO TID PRN 7 Days #42 tab 05/28/23 Amiodarone [Cordarone] 200 mg PO BID #60 tab 06/06/23 Metoprolol Tartrate [Lopressor] 25 mg PO BID #60 tab 06/06/23 Simethicone Chew [Mylicon Chew] 40 mg PO QID PRN #30 tab 06/06/23 HYDROcodone/APAP 5-325MG [[place]unter 1 - 2 tab PO Q6HR PRN #32 tab 06/25/23 5-325] Allergies Allergy/AdvReac Type Severity Reaction Status Date / Time adhesive tape Allergy Itching Verified 06/29/23 16:07 codeine Allergy Rash/Hives Verified 06/29/23 16:07 cyclobenzaprine Allergy Rash/Hives Verified 06/29/23 16:07 [From Flexeril] diphenhydramine Allergy Anaphylaxis Verified 06/29/23 16:07 [From Benadryl] hydromorphone [From Dilaudid] Allergy Rash/Hives Verified 06/29/23 16:07 hydroxyzine Allergy Anaphylaxis Verified 06/29/23 16:07 Iodinated Contrast Media Allergy Anaphylaxis Verified 06/29/23 16:07 [Iodinated Contrast- Oral and IV Dye] pantoprazole [From Protonix] Allergy Anaphylaxis Verified 06/29/23 16:07 Penicillins Allergy Rash/Hives Verified 06/29/23 16:07 potassium chloride Allergy Rash/Hives Verified 06/29/23 16:07 pregabalin [From Lyrica] Allergy Anaphylaxis Verified 06/29/23 16:07 sevelamer Allergy Rash/Hives Verified 06/29/23 16:07 warfarin [From Coumadin] Allergy Anaphylaxis Verified 06/29/23 16:07 acetaminophen [From Vicodin] AdvReac Nausea & Verified 06/29/23 16:07 Vomiting aripiprazole [From Abilify] AdvReac Abdominal Verified 06/29/23 16:07 Pain aztreonam AdvReac Unknown Verified 06/29/23 16:07 calcitriol AdvReac Unknown Verified 06/29/23 16:07 cefadroxil AdvReac Unknown Verified 06/29/23 16:07 enalapril AdvReac Unknown Verified 06/29/23 16:07 hydrocodone [From Vicodin] AdvReac Nausea & Verified 06/29/23 16:07 Vomiting Influenza Virus Vaccines AdvReac Unknown Verified 06/29/23 16:07 levofloxacin [From Levaquin] AdvReac Abdominal Verified 06/29/23 16:07 Pain meloxicam [From Mobic] AdvReac Abdominal Verified 06/29/23 16:07 Pain morphine AdvReac Unknown Verified 06/29/23 16:07 propoxyphene AdvReac Unknown Verified 06/29/23 16:07 Sulfa (Sulfonamide AdvReac Vomiting Verified 06/29/23 16:07 Antibiotics) tramadol AdvReac no Verified 06/29/23 16:07 allergy, just does not work for him Review of Systems ROS Other: All systems not noted in ROS Statement are negative. <Mickie Chang - Last Filed: 06/29/23 11:20> ROS Other: All systems not noted in ROS Statement are negative. <Debra Min - Last Filed: 06/30/23 22:26> ROS Statement: Those systems with pertinent positive or pertinent negative responses have been documented in the HPI. Past Medical History Past Medical History: Atrial Fibrillation, Dialysis, Eye Disorder, GERD/Reflux, Renal Disease, Seizure Disorder, Thyroid Disorder Additional Past Medical History / Comment(s): Recent fall with quadriceps tendon rupture. Gout. Bruises easily. 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 Kidney transplant in 1998. Hemodialysis [facility] at home. Hx anemia with blood transfusion. 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 Hx diverticulitis. Hx Shingles 02/2021. Hx approximately 7 grand mal seizures in 2021 when on dialysis, unknown etiology, none since. Has nonactive left arm dialysis graft and functioning right groin dialysis port. Frequent headaches. Low blood pressure at times. History of Any Multi-Drug Resistant Organisms: None Reported Additional Past Surgical History / Comment(s): Fistula placement, thyroidectomy, kidney transplant, toenails removed. Past Anesthesia/Blood Transfusion Reactions: No Reported Reaction Additional Past Anesthesia/Blood Transfusion Reaction / Comment(s): Blood transfusion - had no issues. Past Psychological History: No Psychological Hx Reported Additional Psychological History / Comment(s): Pt resides with his mother who is his caregiver. Pt ambulates without device/he memorizes where furniture is placed. Mother performs hemodialysis 4 days a week. 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 No home care. Smoking Status: Never smoker Past Alcohol Use History: None Reported Past Drug Use History: None Reported - Past Family History Mother Family Medical History: Fibromyalgia, Osteoarthritis (OA) Additional Family Medical History / Comment(s): Lupus Family Family Medical History: No Reported History Additional Family Medical History / Comment(s): ETOH abuse <Mickie Chang - Last Filed: 06/29/23 11:20> General Exam <Mickie Chang - Last Filed: 06/29/23 11:20> General appearance: alert, in no apparent distress Head exam: Present: atraumatic, normocephalic, normal inspection Eye exam: Present: normal appearance, PERRL, EOMI. Absent: scleral icterus, conjunctival injection, periorbital swelling ENT exam: Present: normal exam, mucous membranes moist Neck exam: Present: normal inspection. Absent: tenderness, meningismus, lymphadenopathy Respiratory exam: Present: normal lung sounds bilaterally. Absent: respiratory distress, wheezes, rales, rhonchi, stridor Cardiovascular Exam: Present: regular rate, normal rhythm, normal heart sounds. Absent: systolic murmur, diastolic murmur, rubs, gallop, clicks GI/Abdominal exam: Present: soft, normal bowel sounds. Absent: distended, tenderness, guarding, rebound, rigid Extremities exam: Present: normal inspection, full ROM, normal capillary refill. Absent: tenderness, pedal edema, joint swelling, calf tenderness Back exam: Present: normal inspection Neurological exam: Present: alert, oriented X3, CN II-XII intact Psychiatric exam: Present: normal affect, normal mood Skin exam: Present: warm, dry, intact, normal color. Absent: rash <Debra Min - Last Filed: 06/30/23 22:26> - General Exam Comments Initial Comments: Visual Physical Exam Vital signs reviewed General: Well-appearing, nontoxic, no acute distress. actively hiccupping Head: Normocephalic, atraumatic Eyes: PERRLA, EOMI ENT: Airway patent Chest: Nonlabored breathing Skin: No visual rash, normal skin tone Neuro: Alert and oriented 3 Musculoskeletal: No gross abnormalities (Mickie Chang) Course Vital Signs 06/29/23 06/29/23 06/29/23 11:49 17:04 19:28 Temperature 98.9 F Pulse Rate 61 105 H 67 Respiratory 20 18 18 Rate Blood Pressure 73/43 98/82 98/75 O2 Sat by Pulse 96 98 97 Oximetry Medical Decision Making <Mickie Chang - Last Filed: 06/29/23 11:20> - Lab Data Result diagrams: 06/30/23 06:44 06/30/23 06:44 <Debra Min - Last Filed: 06/30/23 22:26> - Medical Decision Making I performed the quick note portion of this chart. Electronically signed by Mickie Chang PA-C (Mickie Chang) Was pt. sent in by a medical professional or institution (BOYD Waller, SURGERY CENTER ADMINISTRATOR, urgent care, hospital, or alf...) When possible be specific @ -No Did you speak to anyone other than the patient for history (EMS, parent, family, police, friend...)? What history was obtained from this source @ -No Did you review nursing and triage notes (agree or disagree)? Why? @ -I reviewed and agree with nursing and triage notes Were old charts reviewed (outside hosp., previous admission, EMS record, old EKG, old radiological studies, urgent care reports/EKG's, alf records)? Report findings @ -No old charts were reviewed Differential Diagnosis (chest pain, altered mental status, abdominal pain women, abdominal pain men, vaginal bleeding, weakness, fever, dyspnea, syncope, headache, dizziness, GI bleed, back pain, seizure, CVA, palpatations, mental health, musculoskeletal)? @ -Intractable hiccups EKG interpreted by me (3pts min.). @None X-rays interpreted by me (1pt min.). @ -None done CT interpreted by me (1pt min.). @ -None done U/S interpreted by me (1pt. min.). @ -None done What testing was considered but not performed or refused? (CT, X-rays, U/S, labs)? Why? @ -None What meds were considered but not given or refused? Why? @ -None Did you discuss the management of the patient with other professionals (professionals i.e. , PA, SURGERY CENTER ADMINISTRATOR, lab, RT, psych nurse, social science teacher, big 6 dealer, teacher, foreign policy officer, case resource manager)? Give summary @ -No Was smoking cessation discussed for >3mins.? @ -No Was critical care preformed (if so, how long)? @ -No Were there social determinants of health that impacted care today? How? (Homelessness, low income, unemployed, alcoholism, drug addiction, transpor tation, low edu. Level, literacy, decrease access to med. care, halfway, rehab)? @ -No Was there de-escalation of care discussed even if they declined (Discuss DNR or withdrawal of care, Hospice)? DNR status @ -No What co-morbidities impacted this encounter? (DM, HTN, Smoking, COPD, CAD, Cancer, CVA, ARF, Chemo, Hep., AIDS, mental health diagnosis, sleep apnea, morbid obesity)? @ -CKD, HTN Was patient admitted / discharged? Hospital course, mention meds given and route, prescriptions, significant lab abnormalities, going to OR and other pertinent info. @ -53-year-old male with a chief complaint of hiccups. On physical examination he has noted that. Slight distress due to continuous spasm of his diaphragm. Initially attempted at procedure to minimize spasm with a cold spoon rested up against the patient's denominational that was cold and instructed the patient to quickly consume cold water, this did not alleviate the patient's hiccups. Therefore order of Reglan was placed. Patient's laboratory results remarkable for microcytic anemia which appears similar to previous hospital visits. Patient BUN/creatinine elevated at 33 and 5.98 which is similar to previous due to patient's chronic kidney disease on dialysis. Reevaluation of the patient is currently creatinine, he was sleeping. Upon arousing the patient and speak with him in the room for a few minutes seconds returned, therefore Haldol was ordered. Again, reevaluation of the patient was asleep upon arousal after few minutes of speaking with the patient his hiccups returned. I spoke with Dr. Monterroso who recommended use of oral Thorazine and discussion for admission. Dr. Goodson is agreeable for admission and recommends using oral thorazine Q8. Discussed with patient, he is agreeable with admission. Undiagnosed new problem with uncertain prognosis? @ -No Drug Therapy requiring intensive monitoring for toxicity (Heparin, Nitro, Insulin, Cardizem)? @ -No Were any procedures done? @ -No Diagnosis/symptom? @ -Intractable hiccups Acute, or Chronic, or Acute on Chronic? @ -acute Uncomplicated (without systemic symptoms) or Complicated (systemic symptoms)? @ -uncomplicated Side effects of treatment? @ -No Exacerbation, Progression, or Severe Exacerbation? @ -No Poses a threat to life or bodily function? How? (Chest pain, [place], [place], pneumonia, PE, COPD, DKA, ARF, appy, cholecystitis, CVA, Diverticulitis, Homicidal, Suicidal, threat to staff... and all critical care pts) @ -No (Debra Min) - Lab Data Lab Results 06/29/23 06/29/23 Range/Units 12:28 12:28 WBC 10.3 (3.8-10.6) k/uL RBC 2.52 L (4.30-5.90) m/uL Hgb 7.9 L D (13.0-17.5) gm/dL Hct 24.1 L (39.0-53.0) % MCV 95.7 (80.0-100.0) fL MCH 31.4 (25.0-35.0) pg MCHC 32.8 (31.0-37.0) g/dL RDW 16.0 H (11.5-15.5) % Plt Count 197 (150-450) k/uL MPV 7.9 Hypochromasia Slight Sodium 134 L (137-145) mmol/L Potassium 3.8 (3.5-5.1) mmol/L Chloride 99 (98-107) mmol/L Carbon Dioxide 28 (22-30) mmol/L Anion Gap 7 mmol/L BUN 33 H (9-20) mg/dL Creatinine 5.98 H (0.66-1.25) mg/dL Est GFR (CKD-EPI)AfAm 11 (>60 ml/min/1.73 sqM) Est GFR (CKD-EPI)NonAf 10 (>60 ml/min/1.73 sqM) Glucose 101 H (74-99) mg/dL Calcium 8.9 (8.4-10.2) mg/dL Total Bilirubin 0.8 (0.2-1.3) mg/dL AST 18 (17-59) U/L ALT <6 (4-49) U/L Alkaline Phosphatase 70 (38-126) U/L Total Protein 5.3 L (6.3-8.2) g/dL Albumin 3.0 L (3.5-5.0) g/dL Disposition <Mickie Chang - Last Filed: 06/29/23 11:20> Decision to Admit Reason: Admit from EC Decision Date: 06/29/23 Decision Time: 15:16 <Debra Min - Last Filed: 06/30/23 22:26> Clinical Impression: Intractable hiccups Disposition: ADMITTED IP TO THIS [facility] Condition: Fair
[2023-06-29 12:48] LABS: ALT <6 U/L (4-49); AST 18 U/L (17-59); African American GFR (CKD) 11 (>60 ml/min/1.73 sqM); Alkaline Phosphatase 70 U/L (38-126); Anion Gap 7 mmol/L; Blood Urea Nitrogen 33 mg/dL (9-20); Calcium 8.9 mg/dL (8.4-10.2); Carbon Dioxide 28 mmol/L (22-30); Chloride 99 mmol/L (98-107); Glucose 101 mg/dL (74-99); Non-African American GFR(CKD) 10 (>60 ml/min/1.73 sqM); Potassium 3.8 mmol/L (3.5-5.1); Sodium 134 mmol/L (137-145); Total Bilirubin 0.8 mg/dL (0.2-1.3); Total Protein 5.3 g/dL (6.3-8.2)
[2023-06-29 12:53] LABS: HCT 24.1 % (39.0-53.0); Hypochromasia Slight; MCH 31.4 pg (25.0-35.0); MCHC 32.8 g/dL (31.0-37.0); MCV 95.7 fL (80.0-100.0); Mean Platelet Volume 7.9; Platelet Count 197 k/uL (150-450); RBC 2.52 m/uL (4.30-5.90); WBC 10.3 k/uL (3.8-10.6)
[2023-06-29] MEDS: METOCLOPRAMIDE 5 MG/ML 2 ML VIAL IVP STA (13:20)
[2023-06-29] MEDS: HALOPERIDOL LACTATE 5 MG/ML 1 ML VIAL IM STA (14:27)
[2023-06-29] MEDS ORDERED: NALOXONE 0.4 MG/ML 1 ML VIAL IV PRN ×2 (15:17→15:18)
[2023-06-29] MEDS: chlorproMAZINE 25 MG TAB PO SCH (16:00)
[2023-06-29] MEDS: MIDODRINE 5 MG TAB PO PRN (22:14)
[2023-06-29] MEDS ORDERED: BACLOFEN 10 MG TAB PO PRN (22:37)
[2023-06-29] MEDS: METOPROLOL TARTRATE 25 MG TAB PO SCH (23:20)
[2023-06-29] MEDS: HEPARIN SODIUM,PORCINE 5,000 UNIT/ML 1 ML VIAL SQ SCH (23:25)
--- NOTE | 2023-06-30 00:02 | P.HPIM ---
History of Present Illness H&P Date: 06/29/23 Chief Complaint: hiccups Patient is a 51-year-old male with a past medical history of recent fall and left lateral abdominal wall large ecchymosis, chronic atrial fibrillation not on anticoagulation due to frequent falls, legally blind, ESRD on hemodialysis Friday and Friday, hypothyroidism, seizure disorder, history of renal transplant failure and other multiple medical problems presents to ER with complaints of intractable hiccups started after surgery and has not been improving. Patient presented back to the hospital. Patient is status post open repair of quadriceps tendon on left knee by orthopedic surgery on 06/24/2023. Patient does have left knee cast. Denies any complaints of pain. Undergoing hemodialysis as per schedule. No complaints of chest pain or shortness of breath. No nausea vomiting abdominal pain or diarrhea. No dysuria or hematuria. No dizziness or lightheadedness. Laboratory data showed WBC 10.3 hemoglobin 7.9 and platelets 197, sodium 134 potassium 3.8 chloride 99 BUN 33 and creatinine 5.98, blood sugar 101 albumin 3.0 Review of Systems Constitutional: Patient denies any fever or chills . No generalized weakness or weight loss. Abdomen: Patient denied nausea vomiting and diarrhea and abdominal pain. Hiccups. Cardiovascular: Patient denies any chest pain or short of breath no palpitation s. Respiratory: patient denied any cough is from production. No shortness of breath Neurologic: Patient denied any numbness or tingling headache. Musculoskeletal: Patient denies any complaints of joint swelling or deformity. Skin: Negative Psychiatric: Negative Endocrine: No heat or cold intolerance. No recent weight gain. Genitourinary: No dysuria or hematuria. All other 14 point ROS negative except the above Past Medical History Past Medical History: Atrial Fibrillation, Dialysis, Eye Disorder, GERD/Reflux, Renal Disease, Seizure Disorder, Thyroid Disorder Additional Past Medical History / Comment(s): Recent fall with quadriceps tendon rupture. Gout. Bruises easily. 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 Kidney transplant in 1998. Hemodialysis [facility] at home. Hx anemia with blood transfusion. 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 Hx diverticulitis. Hx Shingles 02/2021. Hx approximately 7 grand mal seizures in 2021 when on dialysis, unknown etiology, none since. Has nonactive left arm dialysis graft and functioning right groin dialysis port. Frequent headaches. Low blood pressure at times. History of Any Multi-Drug Resistant Organisms: None Reported Additional Past Surgical History / Comment(s): Fistula placement, thyroidectomy, kidney transplant, toenails removed. Past Anesthesia/Blood Transfusion Reactions: No Reported Reaction Additional Past Anesthesia/Blood Transfusion Reaction / Comment(s): Blood transfusion - had no issues. Past Psychological History: No Psychological Hx Reported Additional Psychological History / Comment(s): Pt resides with his mother who is his caregiver. Pt ambulates without device/he memorizes where furniture is placed. Mother performs hemodialysis 4 days a week. 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 No home care. Smoking Status: Never smoker Past Alcohol Use History: None Reported Past Drug Use History: None Reported - Past Family History Mother Family Medical History: Fibromyalgia, Osteoarthritis (OA) Additional Family Medical History / Comment(s): Lupus Family Family Medical History: No Reported History Additional Family Medical History / Comment(s): ETOH abuse Medications and Allergies Home Medications Medication Instructions Recorded Confirmed Type Levothyroxine Sodium [Synthroid] 50 mcg PO DAILY 12/18/17 06/29/23 History Montelukast [Singulair] 10 mg PO HS 12/18/17 06/29/23 History predniSONE 10 mg PO DAILY 04/25/21 06/29/23 History Atorvastatin [Lipitor] 20 mg PO DAILY 10/15/22 06/29/23 History Midodrine HCl [ProAmatine] 10 mg PO QID PRN 10/15/22 06/29/23 History calcitrioL 0.25 mcg PO SUTUWETHSA 10/15/22 06/29/23 History calcitrioL 0.5 mcg PO MOFR 10/15/22 06/29/23 History Omeprazole [PriLOSEC] 20 mg PO PC-SUPPER 04/25/23 06/29/23 History methocarbamoL [Robaxin-750] 1,500 mg PO TID PRN 7 Days #42 tab 05/28/23 06/29/23 Rx Amiodarone [Cordarone] 200 mg PO BID #60 tab 06/06/23 06/29/23 Rx Metoprolol Tartrate [Lopressor] 25 mg PO BID #60 tab 06/06/23 06/29/23 Rx Simethicone Chew [Mylicon Chew] 40 mg PO QID PRN #30 tab 06/06/23 06/29/23 Rx Acetaminophen Tab [Tylenol] 650 mg PO Q4HR PRN 06/23/23 06/29/23 History Fludrocortisone [Florinef] 0.1 mg PO DAILY 06/23/23 06/29/23 History allopurinoL 100 mg PO DAILY 06/23/23 06/29/23 History HYDROcodone/APAP 5-325MG [[place] 1 - 2 tab PO Q6HR PRN #32 tab 06/25/23 06/29/23 Rx 5-325] Allergies Allergy/AdvReac Type Severity Reaction Status Date / Time adhesive tape Allergy Itching Verified 06/29/23 16:07 codeine Allergy Rash/Hives Verified 06/29/23 16:07 cyclobenzaprine Allergy Rash/Hives Verified 06/29/23 16:07 [From Flexeril] diphenhydramine Allergy Anaphylaxis Verified 06/29/23 16:07 [From Benadryl] hydromorphone [From Dilaudid] Allergy Rash/Hives Verified 06/29/23 16:07 hydroxyzine Allergy Anaphylaxis Verified 06/29/23 16:07 Iodinated Contrast Media Allergy Anaphylaxis Verified 06/29/23 16:07 [Iodinated Contrast- Oral and IV Dye] pantoprazole [From Protonix] Allergy Anaphylaxis Verified 06/29/23 16:07 Penicillins Allergy Rash/Hives Verified 06/29/23 16:07 potassium chloride Allergy Rash/Hives Verified 06/29/23 16:07 pregabalin [From Lyrica] Allergy Anaphylaxis Verified 06/29/23 16:07 sevelamer Allergy Rash/Hives Verified 06/29/23 16:07 warfarin [From Coumadin] Allergy Anaphylaxis Verified 06/29/23 16:07 acetaminophen [From Vicodin] AdvReac Nausea & Verified 06/29/23 16:07 Vomiting aripiprazole [From Abilify] AdvReac Abdominal Verified 06/29/23 16:07 Pain aztreonam AdvReac Unknown Verified 06/29/23 16:07 calcitriol AdvReac Unknown Verified 06/29/23 16:07 cefadroxil AdvReac Unknown Verified 06/29/23 16:07 enalapril AdvReac Unknown Verified 06/29/23 16:07 hydrocodone [From Vicodin] AdvReac Nausea & Verified 06/29/23 16:07 Vomiting Influenza Virus Vaccines AdvReac Unknown Verified 06/29/23 16:07 levofloxacin [From Levaquin] AdvReac Abdominal Verified 06/29/23 16:07 Pain meloxicam [From Mobic] AdvReac Abdominal Verified 06/29/23 16:07 Pain morphine AdvReac Unknown Verified 06/29/23 16:07 propoxyphene AdvReac Unknown Verified 06/29/23 16:07 Sulfa (Sulfonamide AdvReac Vomiting Verified 06/29/23 16:07 Antibiotics) tramadol AdvReac no Verified 06/29/23 16:07 allergy, just does not work for him Physical Exam Vitals: Vital Signs Temp Pulse Pulse Resp BP BP Pulse Ox 06/29/23 20:50 97.7 F 53 L 16 90/52 98 06/29/23 19:28 67 18 98/75 97 06/29/23 17:04 105 H 18 98/82 98 06/29/23 11:49 98.9 F 61 20 73/43 96 Intake and Output 06/29/23 06/29/23 06/29/23 06:59 14:59 22:59 Other: Weight 81.647 kg 81.647 kg PHYSICAL EXAMINATION: Patient is lying in the bed comfortably, no acute distress, awake alert and oriented.. HEENT: Normocephalic. Neck is supple. Pupils reactive. Nostrils clear. Oral cavity is moist. Neck reveals no JVD, carotid bruits, or thyromegaly. CHEST EXAMINATION: Trachea is central. Symmetrical expansion. Lung maher clear to auscultation and percussion. CARDIAC: Normal S1, S2 with no gallops. No murmurs ABDOMEN: Soft. Bowel sounds normal. No organomegaly. No abdominal bruits. Extremities: reveal no edema. No clubbing or cyanosis Neurologically awake, alert, oriented x3 with well-coordinated movements. No focal deficits noted Skin: No rash or skin lesions. Psychiatric: Coperative. Nonsuicidal Musculoskeletal: No joint swelling or deformity. Left lower extremity cast in place Results CBC & Chem 7: 06/29/23 12:28 04/14/24 12:28 Labs: Abnormal Lab Results - Last 24 Hours (Table) 06/29/23 06/29/23 Range/Units 12:28 12:28 RBC 2.52 L (4.30-5.90) m/uL Hgb 7.9 L D (13.0-17.5) gm/dL Hct 24.1 L (39.0-53.0) % RDW 16.0 H (11.5-15.5) % Sodium 134 L (137-145) mmol/L BUN 33 H (9-20) mg/dL Creatinine 5.98 H (0.66-1.25) mg/dL Glucose 101 H (74-99) mg/dL Total Protein 5.3 L (6.3-8.2) g/dL Albumin 3.0 L (3.5-5.0) g/dL Thrombosis Risk Factor Assmnt - DVT/VTE Prophylaxis DVT/VTE Prophylaxis: Pharmacologic Prophylaxis ordered - Choose All That Apply Each Factor Represents 1 point: Age 41-60 years, History of prior major surgery (<1month), Obesity (BMI >25), Swollen legs (current) Thrombosis Risk Factor Assessment Total Risk Factor Score: 4 Thrombosis Risk Factor Assessment Level: Moderate Risk Assessment and Plan Assessment: Intractable hiccups Status post open repair, quadriceps tendon of the left knee on 06/24/23 Recent history of fall with large ecchymosis over the left lateral abdominal wall and hypovolemic shock and also noted to have left knee swelling and MRI showed rupture of quadriceps tendon along with moderate-sized effusion within the joint. Patient was in the hospital from 05/31/2023 to 06/06/2023. Generalized weakness and frequent falls related to legal blindness and comorbidities. ESRD on hemodialysis Friday and Friday Anemia of chronic disease with hemoglobin around 9 at baseline History of renal transplant in 1998 Chronic atrial fibrillation not on anticoagulation due to frequent falls and anemia Severely calcified aortic valve, moderate mitral calcification and mild to mo derate MR Legally blind Hypothyroidism DVT prophylaxis with heparin subcu while in the hospital GI prophylaxis with PPI Plan: Patient was given a dose of Reglan and Haldol in the ER. Will also started on Thorazine. Continue symptomatic management Continue with telemonitoring. Continue with amiodarone and metoprolol and other home medications including levothyroxine and prednisone 10 mg daily. Patient is also on midodrine as needed. Also on Florinef. Not on anticoagulation due to frequent falls and legally blind. Nephrology was consulted for scheduled hemodialysis. Continue to follow closely. Prognosis is guarded with multimedical problems and comorbid conditions. Time with Patient: Greater than 30
[2023-06-30] MEDS: LEVOTHYROXINE 50 MCG TAB PO SCH (05:39)
--- NOTE | 2023-06-30 08:06 | XR ---
EXAMINATION TYPE: XR chest 1V DATE OF EXAM: 06/30/2023 COMPARISON: 06/24/2023 INDICATION: Hiccups TECHNIQUE: Single frontal view of the chest is obtained. FINDINGS: The heart size is mildly prominent. The pulmonary vasculature is normal. The lungs are clear. IMPRESSION: 1. No acute pulmonary process. 2. Mild cardiomegaly
[2023-06-30] MEDS: predniSONE 10 MG TAB PO SCH (08:45)
[2023-06-30] MEDS: AMIODARONE 200 MG TAB PO SCH (08:45)
[2023-06-30] MEDS: FLUDROCORTISONE 0.1 MG TAB PO SCH (08:45)
[2023-06-30] MEDS: allopurinoL 100 MG TAB PO SCH (08:45)
[2023-06-30] MEDS: ATORVASTATIN 20 MG TAB PO SCH (08:45)
[2023-06-30] MEDS: ACETAMINOPHEN TAB 325 MG TAB PO PRN (08:51)
[2023-06-30] MEDS: chlorproMAZINE 25 MG TAB PO PRN (09:19)
[2023-06-30 11:19] LABS: Basophils # (A) 0.01 X 10*3/uL (0.00-0.10); Basophils % (A) 0.1 %; Eosinophils # (A) 0.04 X 10*3/uL (0.04-0.35); Eosinophils % (A) 0.5 %; HCT 23.5 % (39.6-50.0); Lymphocytes # (A) 0.95 X 10*3/uL (0.90-5.00); Lymphocytes % (A) 11.8 %; MCH 29.5 pg (27.0-32.0); MCHC 29.8 g/dL (32.0-37.0); MCV 99.2 FL (80.0-97.0); Mean Platelet Volume 9.2 FL (9.5-12.2); Monocytes # (A) 0.41 X 10*3/uL (0.20-1.00); Monocytes % (A) 5.1 %; NRBC Per 100 WBC 0 X 10*3/uL (0.00-0.01); Neutrophils # (A) 6.47 X 10*3/uL (1.80-7.70); Platelet Count 198 X 10*3/uL (140-440); RBC 2.37 X 10*6/uL (4.40-5.60); RDW 15.9 % (11.5-14.5); WBC 8.08 X 10*3/uL (4.50-10.00)
[2023-06-30 11:36] LABS: Phosphorus 4.8 mg/dL (2.4-5.1)
[2023-06-30 11:38] LABS: BUN/Creat Ratio 5.31 Ratio (12.00-20.00); Blood Urea Nitrogen 41.4 mg/dL (9.0-27.0); Calcium 9.1 mg/dL (8.7-10.3); Carbon Dioxide 24.2 mmol/L (21.6-31.8); Chloride 94 mmol/L (96-109); Glucose 74 mg/dL (70-110); Potassium 3.8 mmol/L (3.5-5.5); Sodium 138 mmol/L (135-145)
--- NOTE | 2023-06-30 12:02 | P.NPCON ---
History of Present Illness - Reason for Consult end stage renal disease - History of Present Illness patient is a 53-year-old male with history of end-stage renal disease maintained on home hemodialysis. Patient is admitted to the hospital with history of significant hiccups which started after recent surgery for open repair of quadriceps tendon on left knee on 06/24/2023. No complaints of abdominal pain. No history of fever or chills Review of Systems as per HPI Past Medical History Past Medical History: Atrial Fibrillation, Dialysis, Eye Disorder, GERD/Reflux, Renal Disease, Seizure Disorder, Thyroid Disorder Additional Past Medical History / Comment(s): Recent fall with quadriceps tendon rupture. Gout. Bruises easily. 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 Kidney transplant in 1998. Hemodialysis [facility] at home. Hx anemia with blood transfusion. 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 Hx diverticulitis. Hx Shingles 02/2021. Hx approximately 7 grand mal seizures in 2021 when on dialysis, unknown etiology, none since. Has nonactive left arm dialysis graft and functioning right groin dialysis port. Frequent headaches. Low blood pressure at times. History of Any Multi-Drug Resistant Organisms: None Reported Additional Past Surgical History / Comment(s): Fistula placement, thyroidectomy, kidney transplant, toenails removed. Past Anesthesia/Blood Transfusion Reactions: No Reported Reaction Additional Past Anesthesia/Blood Transfusion Reaction / Comment(s): Blood transfusion - had no issues. Past Psychological History: No Psychological Hx Reported Additional Psychological History / Comment(s): Pt resides with his mother who is his caregiver. Pt ambulates without device/he memorizes where furniture is placed. Mother performs hemodialysis 4 days a week. 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 No home care. Smoking Status: Never smoker Past Alcohol Use History: None Reported Past Drug Use History: None Reported - Past Family History Mother Family Medical History: Fibromyalgia, Osteoarthritis (OA) Additional Family Medical History / Comment(s): Lupus Family Family Medical History: No Reported History Additional Family Medical History / Comment(s): ETOH abuse Medications and Allergies Home Medications Medication Instructions Recorded Confirmed Type Levothyroxine Sodium [Synthroid] 50 mcg PO DAILY 12/18/17 06/29/23 History Montelukast [Singulair] 10 mg PO HS 12/18/17 06/29/23 History predniSONE 10 mg PO DAILY 04/25/21 06/29/23 History Atorvastatin [Lipitor] 20 mg PO DAILY 10/15/22 06/29/23 History Midodrine HCl [ProAmatine] 10 mg PO QID PRN 10/15/22 06/29/23 History calcitrioL 0.25 mcg PO SUTUWETHSA 10/15/22 06/29/23 History calcitrioL 0.5 mcg PO MOFR 10/15/22 06/29/23 History Omeprazole [PriLOSEC] 20 mg PO PC-SUPPER 04/25/23 06/29/23 History methocarbamoL [Robaxin-750] 1,500 mg PO TID PRN 7 Days #42 tab 05/28/23 06/29/23 Rx Amiodarone [Cordarone] 200 mg PO BID #60 tab 06/06/23 06/29/23 Rx Metoprolol Tartrate [Lopressor] 25 mg PO BID #60 tab 06/06/23 06/29/23 Rx Simethicone Chew [Mylicon Chew] 40 mg PO QID PRN #30 tab 06/06/23 06/29/23 Rx Acetaminophen Tab [Tylenol] 650 mg PO Q4HR PRN 06/23/23 06/29/23 History Fludrocortisone [Florinef] 0.1 mg PO DAILY 06/23/23 06/29/23 History allopurinoL 100 mg PO DAILY 06/23/23 06/29/23 History HYDROcodone/APAP 5-325MG [[place] 1 - 2 tab PO Q6HR PRN #32 tab 06/25/23 06/29/23 Rx 5-325] Allergies Allergy/AdvReac Type Severity Reaction Status Date / Time adhesive tape Allergy Itching Verified 06/29/23 16:07 codeine Allergy Rash/Hives Verified 06/29/23 16:07 cyclobenzaprine Allergy Rash/Hives Verified 06/29/23 16:07 [From Flexeril] diphenhydramine Allergy Anaphylaxis Verified 06/29/23 16:07 [From Benadryl] hydromorphone [From Dilaudid] Allergy Rash/Hives Verified 06/29/23 16:07 hydroxyzine Allergy Anaphylaxis Verified 06/29/23 16:07 Iodinated Contrast Media Allergy Anaphylaxis Verified 06/29/23 16:07 [Iodinated Contrast- Oral and IV Dye] pantoprazole [From Protonix] Allergy Anaphylaxis Verified 06/29/23 16:07 Penicillins Allergy Rash/Hives Verified 06/29/23 16:07 potassium chloride Allergy Rash/Hives Verified 06/29/23 16:07 pregabalin [From Lyrica] Allergy Anaphylaxis Verified 06/29/23 16:07 sevelamer Allergy Rash/Hives Verified 06/29/23 16:07 warfarin [From Coumadin] Allergy Anaphylaxis Verified 06/29/23 16:07 acetaminophen [From Vicodin] AdvReac Nausea & Verified 06/29/23 16:07 Vomiting aripiprazole [From Abilify] AdvReac Abdominal Verified 06/29/23 16:07 Pain aztreonam AdvReac Unknown Verified 06/29/23 16:07 calcitriol AdvReac Unknown Verified 06/29/23 16:07 cefadroxil AdvReac Unknown Verified 06/29/23 16:07 enalapril AdvReac Unknown Verified 06/29/23 16:07 hydrocodone [From Vicodin] AdvReac Nausea & Verified 06/29/23 16:07 Vomiting Influenza Virus Vaccines AdvReac Unknown Verified 06/29/23 16:07 levofloxacin [From Levaquin] AdvReac Abdominal Verified 06/29/23 16:07 Pain meloxicam [From Mobic] AdvReac Abdominal Verified 06/29/23 16:07 Pain morphine AdvReac Unknown Verified 06/29/23 16:07 propoxyphene AdvReac Unknown Verified 06/29/23 16:07 Sulfa (Sulfonamide AdvReac Vomiting Verified 06/29/23 16:07 Antibiotics) tramadol AdvReac no Verified 06/29/23 16:07 allergy, just does not work for him Physical Exam Vitals: Vital Signs Temp Pulse Pulse Resp BP BP Pulse Ox 06/30/23 08:45 86 143/68 06/30/23 08:00 86 18 06/30/23 07:10 98.8 F 68 18 97/62 96 06/30/23 02:32 98.5 F 77 101/66 94 L 06/29/23 20:50 97.7 F 53 L 16 90/52 98 06/29/23 19:28 67 18 98/75 97 06/29/23 17:04 105 H 18 98/82 98 Intake and Output 06/29/23 06/30/23 06/30/23 22:59 06:59 14:59 Intake Total 550 236 Output Total 0 Balance 550 236 Intake: Oral 550 236 Output: Urine 0 Other: Weight 81.647 kg patient is awake, comfortable, no acute distress Examination of the heart S1 and S2 Examination of the lungs bilateral breath sounds are heard Abdomen is soft nontender Examination of lower extremities shows 1+ edema right leg. Left leg is in cast EMBROIDERY CUTTER exam grossly intact Results - Lab Results Most recent lab results Calcium 9.1 mg/dL (8.7-10.3) 06/30/23 06:44 Phosphorus 4.8 mg/dL (2.4-5.1) 06/30/23 06:44 06/30/23 06:44 06/30/23 06:44 Assessment and Plan Assessment: 1. End-stage renal disease maintained on home hemodialysis on Friday, Friday, Friday and Friday schedule via femoral permacath. 2. Intractable hiccups 3. Status post open repair of quadriceps tendon of the left knee on 06/24/2023 4. Recent history of fall and large ecchymosis over the abdominal wall and on the sides 5. CK D mineral bone disorder Plan: hemodialysis today Continue with Thorazine Continue calcitriol Continue midodrine.
[2023-06-30] MEDS: FAMOTIDINE 20 MG/2 ML VIAL IVP SCH (12:59)
[2023-06-30] MEDS: METOCLOPRAMIDE 5 MG/ML 2 ML VIAL IVP SCH (12:59)
[2023-06-30] MEDS ORDERED: PANTOPRAZOLE 40 MG TABLET PO SCH (18:30)
[2023-06-30] MEDS: HEPARIN SODIUM,PORCINE 5,000 UNIT/ML 1 ML VIAL SQ SCH (22:15)
[2023-06-30] MEDS: MONTELUKAST 10 MG TAB PO SCH (22:16)
[2023-07-01 02:12] LABS: Hepatitis B Surface Antigen Nonreactive (Nonreactive)
[2023-07-01 04:29] LABS: Hepatitis B Surface AB- Quant 3.5 mIU/mL
--- NOTE | 2023-07-01 05:46 | P.PN ---
Subjective Progress Note Date: 06/30/23 Patient is a 51-year-old male with a past medical history of recent fall and left lateral abdominal wall large ecchymosis, chronic atrial fibrillation not on anticoagulation due to frequent falls, legally blind, ESRD on hemodialysis Friday and Friday, hypothyroidism, seizure disorder, history of renal transplant failure and other multiple medical problems presents to ER with complaints of intractable hiccups started after surgery and has not been improving. Patient presented back to the hospital. Patient is status post open repair of quadriceps tendon on left knee by orthopedic surgery on 06/24/2023. Patient does have left knee cast. Denies any complaints of pain. Undergoing hemodialysis as per schedule. No complaints of chest pain or shortness of breath. No nausea vomiting abdomi nal pain or diarrhea. No dysuria or hematuria. No dizziness or lightheadedness. Laboratory data showed WBC 10.3 hemoglobin 7.9 and platelets 197, sodium 134 potassium 3.8 chloride 99 BUN 33 and creatinine 5.98, blood sugar 101 albumin 3.0 06/30/2023 Patient seen and evaluated in follow-up today continues to report frequent hiccups with no relief reporting it is making him short of breath. Chest x-ray showing cardiomegaly with no acute process. Nephrology following patient is scheduled to undergo hemodialysis. Will adjust medications and add IV Pepcid along with Reglan scheduled. Patient is afebrile with no reported chest pain or palpitations. Patient is tolerating diet and denies nausea or vomiting. Patient continues on subcu heparin. Hemoglobin is 7.0. Will give 1 unit of PRBC. Review of systems: Constitutional: No reports of fatigue, fever, or chills Cardiovascular: No reports of chest pain or palpitations Respiratory: reports of shortness of breath from continuous hiccups GI: No reports of nausea, vomiting, or diarrhea, reports continued hiccups : No reports of dysuria or retention Neurovascular: No reports of weakness or numbness All medications have been reviewed PHYSICAL EXAMINATION: Patient is lying in the bed , awake alert and oriented x 3, well-developed, well-nourished, legally blind.. HEENT: Normocephalic. Neck is supple. Pupils reactive. Nostrils clear. Oral cavity is moist. Neck reveals no JVD, carotid bruits, or thyromegaly. CHEST EXAMINATION: Trachea is central. Symmetrical expansion. Lung maher clear to auscultation and percussion. Hiccups on exam CARDIAC: S1, S2 are muffled ABDOMEN: Soft. Obese. Bowel sounds normal. No organomegaly. No abdominal bruits. Extremities: reveal no edema. No clubbing or cyanosis Neurologically awake, alert, oriented x3 with well-coordinated movements. No focal deficits noted Skin: No rash or skin lesions. Psychiatric: Cooperative. Non-suicidal Musculoskeletal: No joint swelling or deformity. Left lower extremity cast in place Assessment: Intractable hiccups Status post open repair, quadriceps tendon of the left knee on 06/24/23 Recent history of fall with large ecchymosis over the left lateral abdominal wall and hypovolemic shock and also noted to have left knee swelling and MRI showed rupture of quadriceps tendon along with moderate-sized effusion within the joint. Patient was in the hospital from 05/31/2023 to 06/06/2023. Generalized weakness and frequent falls related to legal blindness and comorbidities. ESRD on hemodialysis Friday and Friday Anemia of chronic disease with hemoglobin around 9 at baseline, hemoglobin 7.0 will transfuse 1 unit of PRBC History of renal transplant in 1998 Chronic atrial fibrillation not on anticoagulation due to frequent falls and ane demetra Severely calcified aortic valve, moderate mitral calcification and mild to moderate MR Legally blind Hypothyroidism DVT prophylaxis with heparin subcu while in the hospital GI prophylaxis with PPI Full code Plan: Patient was given a dose of Reglan and Haldol in the ER. Will continue Thorazine. Patient continues to report hiccups continuously causing shortness of breath. Will add scheduled Reglan and Pepcid IV. Continue symptomatic management Hemoglobin was 7.0 and will give 1 unit of PRBC follow-up with repeat labs Nephrology consulted to continue with hemodialysis Continue with telemonitoring. Continue with amiodarone and metoprolol and other home medications including levothyroxine and prednisone 10 mg daily. Patient is also on midodrine as needed. Also on Florinef. Not on anticoagulation due to frequent falls and legally blind. Continue subcu heparin while in the hospital Due to multiple complex medical issues, prognosis is guarded Possible discharge planning in the next 24 to 48 hours The impression and plan of care has been dictated by Donna Taylor, Nurse Practitioner as directed. Dr. Emeterio MD I have performed a history and examination and MDM of this patient, discussed the same with the dictator, and agree with the dictator's assessment and plan as written ,documented as a scribe. Based on total visit time, I have performed more than 50% of the visit. Objective - Vital Signs Vital signs: Vital Signs Temp 98.6 F 06/30/23 14:23 Pulse 68 06/30/23 14:23 Resp 16 06/30/23 14:23 BP 94/57 06/30/23 14:23 Pulse Ox 98 06/30/23 14:23 FiO2 Intake & Output 06/29/23 06/30/23 06/30/23 18:59 06:59 18:59 Intake Total 550 236 Output Total 0 Balance 550 236 Weight 81.647 kg 81.647 kg Intake: Oral 550 236 Output: Urine 0 - Labs CBC & Chem 7: 06/30/23 06:44 06/30/23 06:44 Labs: Abnormal Lab Results - Last 24 Hours (Table) 06/30/23 06/30/23 Range/Units 06:44 06:44 RBC 2.37 L (4.40-5.60) X 10*6/uL Hgb 7.0 L (13.0-17.0) g/dL Hct 23.5 L (39.6-50.0) % MCV 99.2 H (80.0-97.0) FL MCHC 29.8 L (32.0-37.0) g/dL RDW 15.9 H (11.5-14.5) % MPV 9.2 L (9.5-12.2) FL Immature Gran # 0.20 H (0.00-0.04) X 10*3/uL Chloride 94 L (96-109) mmol/L Anion Gap 19.80 H (4.00-12.00) mmol/L BUN 41.4 H (9.0-27.0) mg/dL Creatinine 7.8 A* (0.6-1.5) mg/dL Est GFR (CKD-EPI) 8 L (>=60) BUN/Creatinine Ratio 5.31 L (12.00-20.00) Ratio
[2023-07-01] MEDS: SIMETHICONE 80 MG CHEWABLE PO PRN (06:26)
[2023-07-01] MEDS ORDERED: PANTOPRAZOLE 40 MG/10 ML VIAL IVP SCH ×2 (09:00→21:00)
[2023-07-01] MEDS: BACLOFEN 10 MG TAB PO SCH (11:33)
--- NOTE | 2023-07-01 12:48 | P.PN ---
Subjective patient is seen for follow-up for end-stage renal disease. status post hemodialysis yesterday with UF of 1.5 L. Patient continues to complain of significant hiccups and he states that he is feeling short of breath. O2 sats 100% on room air Objective - Vital Signs Vital signs: Vital Signs Temp 98 F 07/01/23 09:46 Pulse 68 07/01/23 09:46 Resp 18 07/01/23 09:46 BP 111/65 07/01/23 09:46 Pulse Ox 100 07/01/23 09:46 FiO2 Intake & Output 06/30/23 07/01/23 07/01/23 18:59 06:59 18:59 Intake Total 472 500 310 Output Total 1500 Balance 472 -1000 310 Intake: Oral 472 Blood Product 0 310 Rc As-1 Unit 0 310 [id number] Hemodialysis 500 Output: Hemodialysis 1500 Other: # Voids 1 1 # Bowel Movements 0 - Exam patient is awake, comfortable, alert oriented 3 [employer] exam grossly intact Trace edema noted in lower extremities - Labs CBC & Chem 7: 06/30/23 06:44 06/30/23 06:44 Labs: Abnormal Lab Results - Last 24 Hours (Table) 06/30/23 Range/Units 21:10 Crossmatch See Detail Assessment and Plan Assessment: 1. End-stage renal disease maintained on home hemodialysis on Friday, Friday, Friday and Friday schedule via femoral permacath. 2. Intractable hiccups maintained on Thorazine 3. Status post open repair of quadriceps tendon of the left knee on 06/24/2023 4. Recent history of fall and large ecchymosis over the abdominal wall and on the sides 5. CK D mineral bone disorder Plan: hemodialysis in a.m. Consider pulmonary consult Continue with Thorazine Continue calcitriol Continue midodrine.
[2023-07-01] MEDS: IOPAMIDOL CONTRAST (ORAL USE) VIAL PO PRN (13:05)
[2023-07-01 15:06] LABS: HGB 7.9 gm/dL (13.0-17.5)
[2023-07-01] MEDS: DARBEPOETIN ALFA 60 MCG/0.3 ML SYRINGE SQ SCH (15:58)
[2023-07-01] MEDS: METOCLOPRAMIDE 5 MG/ML 2 ML VIAL IVP SCH (15:59)
--- NOTE | 2023-07-01 16:08 | P.CNPUL ---
History of Present Illness Consult date: 07/01/23 Requesting physician: Rob Storm Reason for consult: dyspnea, other Chief complaint: Hiccups History of present illness: This is a pleasant 53-year-old male patient with a known history of atrial fibrillation, end-stage renal disease with previous kidney transplant, receiving hemodialysis, legally blind, seizure disorder, hypothyroidism, who had recently undergone an open repair of quadriceps tendons at the left knee for a ruptured quadricep tendon week on 06/24/2023. The procedure itself went well. The patient states since that time however he had been having issues with near constant h iccuping. Tried simple home remedies without much improvement. He presented here to the emergency room on the for the same. While he has the hiccups he did complain of shortness of breath and we are consulted today for the same. A CT scan of the chest and abdomen did reveal bilateral small effusions however otherwise unremarkable. Rest x-ray had revealed no acute pulmonary process and mild cardiomegaly. White count 8.0. Hemoglobin 7.0. Platelets 198. Sodium 138. Potassium 3.8. Bicarb 24. BUN 41. Creatinine 7.8. He is seen today in consultation on the regular medical floor. He is sitting up in a chair. Awake and alert in no acute distress. Maintaining good O2 saturations in the 90s on room air. He has not had a single hiccup since we have been in the room. He had been initiated on Pepcid, baclofen and Reglan which seems to be helping. Review of Systems REVIEW OF SYSTEMS: CONSTITUTIONAL: Denies any recent significant weight loss or weight gain. EYES: Denies change in vision. EARS, NOSE, MOUTH, THROAT: Denies headaches, denies sore throat. CARDIOVASCULAR: Denies chest pain, palpitations or syncopal episodes. RESPIRATORY: Positive for shortness of breath during hiccups, no cough, congestion or hemoptysis. GASTROINTESTINAL: Positive for hiccups. Denies change in appetite, denies abdominal pain GENITOURINARY: Denies hematuria, denies infections. MUSKULOSKELETAL: Denies pain, denies swelling. INTEGUMENTARY: Denies rash, denies eczema. NEUROLOGICAL: Denies recent memory loss, no recent seizure activity. PSYCHIATRIC: Denies anxiety, denies depression. HEMATOLOGIC/LYMPHATIC: Denies anemia, denies enlarged lymph nodes. Past Medical History Past Medical History: Atrial Fibrillation, Dialysis, Eye Disorder, GERD/Reflux, Renal Disease, Seizure Disorder, Thyroid Disorder Additional Past Medical History / Comment(s): Recent fall with quadriceps tendon rupture. Gout. Bruises easily. 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 Kidney transplant in 1998. Hemodialysis [facility] at home. Hx anemia with blood transfusion. 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 Hx diverticulitis. Hx Shingles 02/2021. Hx approximately 7 grand mal seizures in 2021 when on dialysis, unknown etiology, none since. Has nonactive left arm dialysis graft and functioning right groin dialysis port. Frequent headaches. Low blood pressure at times. History of Any Multi-Drug Resistant Organisms: None Reported Additional Past Surgical History / Comment(s): Fistula placement, thyroidectomy, kidney transplant, toenails removed. Past Anesthesia/Blood Transfusion Reactions: No Reported Reaction Additional Past Anesthesia/Blood Transfusion Reaction / Comment(s): Blood trans fusion - had no issues. Past Psychological History: No Psychological Hx Reported Additional Psychological History / Comment(s): Pt resides with his mother who is his caregiver. Pt ambulates without device/he memorizes where furniture is placed. Mother performs hemodialysis 4 days a week. 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 No home care. Smoking Status: Never smoker Past Alcohol Use History: None Reported Past Drug Use History: None Reported - Past Family History Mother Family Medical History: Fibromyalgia, Osteoarthritis (OA) Additional Family Medical History / Comment(s): Lupus Family Family Medical History: No Reported History Additional Family Medical History / Comment(s): ETOH abuse Medications and Allergies Home Medications Medication Instructions Recorded Confirmed Type Levothyroxine Sodium [Synthroid] 50 mcg PO DAILY 12/18/17 06/29/23 History Montelukast [Singulair] 10 mg PO HS 12/18/17 06/29/23 History predniSONE 10 mg PO DAILY 04/25/21 06/29/23 History Atorvastatin [Lipitor] 20 mg PO DAILY 10/15/22 06/29/23 History Midodrine HCl [ProAmatine] 10 mg PO QID PRN 10/15/22 06/29/23 History calcitrioL 0.25 mcg PO SUTUWETHSA 10/15/22 06/29/23 History calcitrioL 0.5 mcg PO MOFR 10/15/22 06/29/23 History Omeprazole [PriLOSEC] 20 mg PO PC-SUPPER 04/25/23 06/29/23 History methocarbamoL [Robaxin-750] 1,500 mg PO TID PRN 7 Days #42 tab 05/28/23 06/29/23 Rx Amiodarone [Cordarone] 200 mg PO BID #60 tab 06/06/23 06/29/23 Rx Metoprolol Tartrate [Lopressor] 25 mg PO BID #60 tab 06/06/23 06/29/23 Rx Simethicone Chew [Mylicon Chew] 40 mg PO QID PRN #30 tab 06/06/23 06/29/23 Rx Acetaminophen Tab [Tylenol] 650 mg PO Q4HR PRN 06/23/23 06/29/23 History Fludrocortisone [Florinef] 0.1 mg PO DAILY 06/23/23 06/29/23 History allopurinoL 100 mg PO DAILY 06/23/23 06/29/23 History HYDROcodone/APAP 5-325MG [[place] 1 - 2 tab PO Q6HR PRN #32 tab 06/25/23 06/29/23 Rx 5-325] Allergies Allergy/AdvReac Type Severity Reaction Status Date / Time adhesive tape Allergy Itching Verified 06/29/23 16:07 codeine Allergy Rash/Hives Verified 06/29/23 16:07 cyclobenzaprine Allergy Rash/Hives Verified 06/29/23 16:07 [From Flexeril] diphenhydramine Allergy Anaphylaxis Verified 06/29/23 16:07 [From Benadryl] hydromorphone [From Dilaudid] Allergy Rash/Hives Verified 06/29/23 16:07 hydroxyzine Allergy Anaphylaxis Verified 06/29/23 16:07 Iodinated Contrast Media Allergy Anaphylaxis Verified 06/29/23 16:07 [Iodinated Contrast- Oral and IV Dye] pantoprazole [From Protonix] Allergy Anaphylaxis Verified 06/29/23 16:07 Penicillins Allergy Rash/Hives Verified 06/29/23 16:07 potassium chloride Allergy Rash/Hives Verified 06/29/23 16:07 pregabalin [From Lyrica] Allergy Anaphylaxis Verified 06/29/23 16:07 sevelamer Allergy Rash/Hives Verified 06/29/23 16:07 warfarin [From Coumadin] Allergy Anaphylaxis Verified 06/29/23 16:07 acetaminophen [From Vicodin] AdvReac Nausea & Verified 06/29/23 16:07 Vomiting aripiprazole [From Abilify] AdvReac Abdominal Verified 06/29/23 16:07 Pain aztreonam AdvReac Unknown Verified 06/29/23 16:07 calcitriol AdvReac Unknown Verified 06/29/23 16:07 cefadroxil AdvReac Unknown Verified 06/29/23 16:07 enalapril AdvReac Unknown Verified 06/29/23 16:07 hydrocodone [From Vicodin] AdvReac Nausea & Verified 06/29/23 16:07 Vomiting Influenza Virus Vaccines AdvReac Unknown Verified 06/29/23 16:07 levofloxacin [From Levaquin] AdvReac Abdominal Verified 06/29/23 16:07 Pain meloxicam [From Mobic] AdvReac Abdominal Verified 06/29/23 16:07 Pain morphine AdvReac Unknown Verified 06/29/23 16:07 propoxyphene AdvReac Unknown Verified 06/29/23 16:07 Sulfa (Sulfonamide AdvReac Vomiting Verified 06/29/23 16:07 Antibiotics) tramadol AdvReac no Verified 06/29/23 16:07 allergy, just does not work for him Physical Exam Vitals: Vital Signs Temp Pulse Pulse Resp BP BP Pulse Ox 07/01/23 15:00 98.4 F 61 17 149/79 96 07/01/23 09:46 98 F 68 18 111/65 100 07/01/23 07:27 98.1 F 18 L 18 98/58 100 07/01/23 07:07 98.3 F 65 18 108/55 100 07/01/23 07:06 98.3 F 65 18 108/55 98 07/01/23 06:57 98.1 F 63 18 108/62 99 07/01/23 00:10 98.9 F 74 19 133/65 99 06/30/23 22:54 97.7 F 64 18 137/60 06/30/23 19:13 98.0 F 51 L 18 109/62 96 Intake and Output 07/01/23 07/01/23 07/01/23 06:59 14:59 22:59 Intake Total 0 428 Balance 0 428 Intake: Oral 118 Blood Product 0 310 Rc As-1 Unit 0 310 [id number] Other: # Voids 1 2 # Bowel Movements 1 GENERAL EXAM: Alert, pleasant 53-year-old male patient, on room air, comfortable in no apparent distress. HEAD: Normocephalic. EYES: Legally blind since 2018. Normal reaction of pupils, equal size. NOSE: Clear with pink turbinates. THROAT: No erythema or exudates. NECK: No masses, no JVD. CHEST: No chest wall deformity. LUNGS: Equal air entry with faint crackles in the posterior bases. CVS: S1 and S2 normal with no audible murmur, regular rhythm. ABDOMEN: Large area of ecchymosis of the abdominal wall and bilateral sides. No hepatosplenomegaly, normal bowel sounds, no guarding or rigidity. SPINE: No scoliosis or deformity SKIN: No rashes CENTRAL NERVOUS SYSTEM: No focal deficits, tone is normal in all 4 extremities. EXTREMITIES: Left upper extremity nonworking AV fistula. Right femoral Port-A-Cath in place. The left lower extremity is wrapped. There is no peripheral edema. No clubbing, no cyanosis. Peripheral pulses are intact. Results - Laboratory Findings CBC and BMP: 06/30/23 06:44 06/30/23 06:44 Abnormal lab findings: Abnormal Labs 06/29/23 06/29/23 06/30/23 12:28 12:28 06:44 RBC 2.52 L 2.37 L Hgb 7.9 L D 7.0 L Hct 24.1 L 23.5 L MCV 99.2 H MCHC 29.8 L RDW 16.0 H 15.9 H MPV 9.2 L Immature Gran # 0.20 H Sodium 134 L Chloride Anion Gap BUN 33 H Creatinine 5.98 H Est GFR (CKD-EPI) BUN/Creatinine Ratio Glucose 101 H Total Protein 5.3 L Albumin 3.0 L Crossmatch 06/30/23 06/30/23 06:44 21:10 RBC Hgb Hct MCV MCHC RDW MPV Immature Gran # Sodium Chloride 94 L Anion Gap 19.80 H BUN 41.4 H Creatinine 7.8 A* Est GFR (CKD-EPI) 8 L BUN/Creatinine Ratio 5.31 L Glucose Total Protein Albumin Crossmatch See Detail - Diagnostic Findings Chest x-ray: image reviewed CT scan - chest: image reviewed Assessment and Plan Assessment: Intractable hiccups since left knee surgery on 06/24/2023 Shortness of breath while hiccuping, otherwise comfortable and on room air Small bilateral pleural effusions Recent open repair of quadriceps tendon of the left knee 06/24/2023 following a ruptured quadricep tendon End-stage renal disease receiving home hemodialysis. 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 Hyperlipidemia Gastroesophageal reflux disease History of seizures History of hypotension, on midodrine Plan: The patient was seen and evaluated CT scan of the chest, chest x-ray, labs and medications reviewed The patient is stable and on room air No hiccups during the interview and examination Continue Reglan, baclofen, Pepcid Continue hemodialysis per schedule We will continue to follow and make further recommendations based on his clinical status I have personally seen and examined the patient, performed the documentation and the assessment and plan as written. Number of minutes spent on the visit: 20.
--- NOTE | 2023-07-01 16:34 | CT ---
EXAMINATION TYPE: CT chest abdomen wo con DATE OF EXAM: 07/01/2023 INDICATION: abdominal pain, hiccups x 7 days COMPARISON: 06/05/2023 CT DLP: 703.5 mGycm CONTRAST: Performed with Oral Contrast TECHNIQUE: Axial images at 5 mm thick sections. Reconstructed images in the coronal plane. Delayed images through the kidneys. FINDINGS: CT CHEST: Portion of the thyroid visualized is normal. No suspicious lung nodules or focal infiltrates are present. There is a small right and minimal left pleural effusion. No enlarged mediastinal or hilar adenopathy is evident. The ascending aorta diameter at the level of the main pulmonary artery is 3.7 cm. The main pulmonary artery diameter at the bifurcation is 3.1 cm. There is dense coronary artery calcification present. CT ABDOMEN: Liver: Normal Spleen: Normal Pancreas: Normal Adrenal glands: The adrenal glands are normal. Gallbladder: Normal Kidneys: No masses are evident. No hydronephrosis is present. Multiple cysts are present. The large st is at the superior pole left kidney and measures 4.2 cm kidneys appear atrophic. Findings can be c ompatible with polycystic kidney disease Aorta: Vascular calcification is within the aorta. Inferior vena cava: Normal. There are nonspecific fluid-filled loops of bowel within the right lower quadrant. No oral contrast i s present within these loops of bowel. Ileus or partial obstruction is not excluded. Recommend additi onal follow-up of these loops of bowel, consider additional oral contrast and follow-up CT abdomen an d pelvis to take advantage of the oral contrast already present. IMPRESSION: 1. No suspicious abnormality within the chest to account for hiccups. 2. Small right and minimal left pleural effusion. 3. Polycystic kidney changes with some atrophy. 4. Nonspecific prominent fluid-filled small bowel loops within the right lower quadrant partially vis ualized. Recommend additional workup. Please see above discussion A Red level critical message alert has been initiated for Nasra Nathan via the [facility] Critical Results System on 07/01/2023 4:32 PM. This message alert has been sent to Nasra Nathan v ia the preferences provided by the clinician for the receipt of Radiology Critical Findings. Message ID [id number].
[2023-07-01] MEDS: BARIUM SULFATE 2% - 450 ML ORAL.SUSP BOTTLE PO PRN (17:12)
--- NOTE | 2023-07-01 19:47 | CT ---
EXAMINATION TYPE: CT abdomen pelvis wo con DATE OF EXAM: 07/01/2023 COMPARISON: 60 07/01/2023 INDICATION: pt had surgery to lower ext last week, pt c/o hiccups nonstop ever since. motion on the e xam due to this reason. DLP: 1472.8 mGycm, Automated exposure control for dose reduction was used. CONTRAST: 0 mL of Isovue 300. Study performed with Oral Contrast TECHNIQUE: Axial images were obtained from above the diaphragm to the pubic rami in the axial plane a t 5 mm thick sections. Reconstructed images are reviewed on the computer in the coronal plane. FINDINGS: Limited CT sections are obtained the lung bases. Minimal bilateral pleural effusions are present. Co ronary artery calcification is present. CT ABDOMEN: Liver: Normal Spleen: Normal Pancreas: Normal Adrenal glands: The adrenal glands are normal. Gallbladder: Normal Kidneys: Kidneys are somewhat atrophic with multiple cysts present. The largest cyst superior pole le ft kidney measuring 4.2 cm. Within the right hemipelvis, which appeared to be some partially visualized loops of bowel on the CT abdomen portion of the study, is the transplant kidney with hydronephrosis and hydroureter. This exte nds into the anterior abdominal wall hernia. Aorta: Vascular calcification is within the aorta. Inferior vena cava: Normal. CT PELVIS: Right femoral catheter is evident. Loops of bowel within the abdomen and pelvis are normal. No dilated loops of bowel are evident. Th ere are loops of bowel which are incompletely distended or lack oral contrast limiting their evaluati on. No suspicious dilated small bowel loops are identified. Appendix: Not clearly identified. Urinary bladder: Not clearly identified. Genitourinary structures: Prostate appears normal Osseous structures: No suspicious lytic or sclerotic lesions. IMPRESSION: 1. No suspicious obstruction or dilated loops of bowel. 2. Transplant kidney with hydronephrosis and hydroureter. 3. Polycystic kidneys with atrophy.
[2023-07-01] MEDS: HYDROcodone/APAP 5-325MG 1 EACH TAB PO PRN (23:09)
[2023-07-02 02:56] LABS: Basophils # (A) 0 X 10*3/uL (0.00-0.10); Basophils % (A) 0 %; Eosinophils # (A) 0.01 X 10*3/uL (0.04-0.35); Eosinophils % (A) 0.1 %; HCT 25.9 % (39.6-50.0); Lymphocytes # (A) 0.37 X 10*3/uL (0.90-5.00); Lymphocytes % (A) 5.3 %; MCH 29.7 pg (27.0-32.0); MCHC 30.9 g/dL (32.0-37.0); MCV 96.3 FL (80.0-97.0); Mean Platelet Volume 9.3 FL (9.5-12.2); Monocytes % (A) 4.3 %; NRBC Per 100 WBC 0 X 10*3/uL (0.00-0.01); Neutrophils # (A) 6.11 X 10*3/uL (1.80-7.70); Neutrophils % (A) 88.4 %; Platelet Count 201 X 10*3/uL (140-440); RBC 2.69 X 10*6/uL (4.40-5.60); RDW 17.5 % (11.5-14.5); WBC 6.92 X 10*3/uL (4.50-10.00)
[2023-07-02 03:38] LABS: Magnesium 1.8 mg/dL (1.5-2.4)
[2023-07-02 04:40] LABS: BUN/Creat Ratio 4.84 Ratio (12.00-20.00); Blood Urea Nitrogen 27.1 mg/dL (9.0-27.0); Calcium 8.9 mg/dL (8.7-10.3); Carbon Dioxide 25.4 mmol/L (21.6-31.8); Chloride 96 mmol/L (96-109); Glucose 144 mg/dL (70-110); Potassium 4.2 mmol/L (3.5-5.5); Sodium 134 mmol/L (135-145)
--- NOTE | 2023-07-02 06:57 | P.PN ---
Subjective Progress Note Date: 07/01/23 Patient is a 51-year-old male with a past medical history of recent fall and left lateral abdominal wall large ecchymosis, chronic atrial fibrillation not on anticoagulation due to frequent falls, legally blind, ESRD on hemodialysis Friday and Friday, hypothyroidism, seizure disorder, history of renal transplant failure and other multiple medical problems presents to ER with complaints of intractable hiccups started after surgery and has not been improving. Patient presented back to the hospital. Patient is status post open repair of quadriceps tendon on left knee by orthopedic surgery on 06/24/2023. Patient does have left knee cast. Denies any complaints of pain. Undergoing hemodialysis as per schedule. No complaints of chest pain or shortness of breath. No nausea vomiting abdomi nal pain or diarrhea. No dysuria or hematuria. No dizziness or lightheadedness. Laboratory data showed WBC 10.3 hemoglobin 7.9 and platelets 197, sodium 134 potassium 3.8 chloride 99 BUN 33 and creatinine 5.98, blood sugar 101 albumin 3.0 06/30/2023 Patient seen and evaluated in follow-up today continues to report frequent hiccups with no relief reporting it is making him short of breath. Chest x-ray showing cardiomegaly with no acute process. Nephrology following patient is scheduled to undergo hemodialysis. Will adjust medications and add IV Pepcid along with Reglan scheduled. Patient is afebrile with no reported chest pain or palpitations. Patient is tolerating diet and denies nausea or vomiting. Patient continues on subcu heparin. Hemoglobin is 7.0. Will give 1 unit of PRBC. 07/01/2023 Patient is seen and evaluated in follow-up this morning continues to report persistent hiccups with no relief causing abdominal pain and shortness of breath. Patient with nephrology following recommending pulmonary consultation which is currently pending. Patient continues on Reglan and will increase to 10 mg 3 times daily as scheduled, baclofen, and supportive care. Plan is for hemo dialysis tomorrow. Will obtain CT abdomen pelvis as patient is reporting abdominal pain and persistent hiccups. Patient is afebrile with no reports of chest pain or palpitations. Review of systems: Constitutional: No reports of fatigue, fever, or chills Cardiovascular: No reports of chest pain or palpitations Respiratory: reports of shortness of breath from continuous hiccups GI: No reports of nausea, vomiting, or diarrhea, reports continued hiccups causing abdominal pain : No reports of dysuria or retention Neurovascular: No reports of weakness or numbness All medications have been reviewed PHYSICAL EXAMINATION: Patient is lying in the bed , awake alert and oriented x 3, well-developed, well-nourished, legally blind.. HEENT: Normocephalic. Neck is supple. Pupils reactive. Nostrils clear. Oral cavity is moist. Neck reveals no JVD, carotid bruits, or thyromegaly. CHEST EXAMINATION: Trachea is central. Symmetrical expansion. Lung maher clear to auscultation and percussion. Hiccups on exam CARDIAC: S1, S2 are muffled ABDOMEN: Soft. Obese. Bowel sounds normal. No organomegaly. No abdominal bruits. Extremities: reveal no edema. No clubbing or cyanosis Neurologically awake, alert, oriented x3 with well-coordinated movements. No focal deficits noted Skin: No rash or skin lesions. Psychiatric: Cooperative. Non-suicidal Musculoskeletal: No joint swelling or deformity. Left lower extremity cast in place Assessment: Intractable hiccups Status post open repair, quadriceps tendon of the left knee on 06/24/23 Recent history of fall with large ecchymosis over the left lateral abdominal wall and hypovolemic shock and also noted to have left knee swelling and MRI zion wed rupture of quadriceps tendon along with moderate-sized effusion within the joint. Patient was in the hospital from 05/31/2023 to 06/06/2023. Generalized weakness and frequent falls related to legal blindness and comorbidities. ESRD on hemodialysis Friday and Friday Anemia of chronic disease with hemoglobin around 9 at baseline, hemoglobin was 7.0 status post 1 unit of PRBC, hemoglobin improved at 8 today History of renal transplant in 1998 Chronic atrial fibrillation not on anticoagulation due to frequent falls and anemia Severely calcified aortic valve, moderate mitral calcification and mild to moderate MR Legally blind Hypothyroidism DVT prophylaxis with heparin subcu while in the hospital GI prophylaxis with PPI Full code Plan: Patient was given a dose of Reglan and Haldol in the ER. Thorazine discontinued. Patient continues to report hiccups continuously causing shor tness of breath and abdominal pain. Will schedule Reglan and increase the dose to 10 mg 3 times daily and continue Pepcid IV. Make baclofen scheduled 3 times daily. Pulmonary consulted and appreciate input and recommendations. Continue symptomatic management CT abdomen pelvis ordered for continued abdominal pain Hemoglobin was 7.0 and is status post 1 unit of PRBC, no active bleeding noted and hemoglobin is 8 Nephrology following with hemodialysis, recommending pulmonary consult as well for persistent hiccups, patient will receive hemodialysis on Friday as scheduled Continue with telemonitoring. Continue with amiodarone and metoprolol and other home medications including levothyroxine and prednisone 10 mg daily. Patient is also on midodrine as needed. Also on Florinef. Not on anticoagulation due to frequent falls and legally blind. Continue subcu heparin while in the hospital Due to multiple complex medical issues, prognosis is guarded Possible discharge planning in the next 24 to 48 hours The impression and plan of care has been dictated by Donna Taylor, Nurse Practitioner as directed. Dr. Emeterio MD I have performed a history and examination and MDM of this patient, discussed the same with the dictator, and agree with the dictator's assessment and plan as written ,documented as a scribe. Based on total visit time, I have performed more than 50% of the visit. Objective - Vital Signs Vital signs: Vital Signs Temp 97.7 F 07/02/23 02:00 Pulse 69 07/02/23 02:00 Resp 16 07/02/23 02:00 BP 151/78 07/02/23 02:00 Pulse Ox 94 L 07/02/23 02:00 FiO2 Intake & Output 07/01/23 07/01/23 07/02/23 06:59 18:59 06:59 Intake Total 500 428 Output Total 1500 Balance -1000 428 Intake: Oral 118 Blood Product 0 310 Rc As-1 Unit 0 310 [id number] Hemodialysis 500 Output: Hemodialysis 1500 Other: # Voids 1 2 1 # Bowel Movements 0 1 - Labs CBC & Chem 7: 07/01/23 16:03 07/01/23 16:03 Labs: Abnormal Lab Results - Last 24 Hours (Table) 06/29/23 06/30/23 07/01/23 Range/Units 12:28 21:10 16:03 RBC 2.69 L (4.40-5.60) X 10*6/uL Hgb 7.9 L D 8.0 L (13.0-17.5) gm/dL Hct 25.9 L (39.6-50.0) % MCHC 30.9 L (32.0-37.0) g/dL RDW 17.5 H (11.5-14.5) % MPV 9.3 L (9.5-12.2) FL Immature Gran # 0.13 H (0.00-0.04) X 10*3/uL Lymphocytes # 0.37 L (0.90-5.00) X 10*3/uL Eosinophils # 0.01 L (0.04-0.35) X 10*3/uL Sodium (135-145) mmol/L Anion Gap (4.00-12.00) mmol/L BUN (9.0-27.0) mg/dL Creatinine (0.6-1.5) mg/dL Est GFR (CKD-EPI) (>=60) BUN/Creatinine Ratio (12.00-20.00) Ratio Glucose (70-110) mg/dL Crossmatch See Detail 07/01/23 Range/Units 16:03 RBC (4.40-5.60) X 10*6/uL Hgb (13.0-17.5) gm/dL Hct (39.6-50.0) % MCHC (32.0-37.0) g/dL RDW (11.5-14.5) % MPV (9.5-12.2) FL Immature Gran # (0.00-0.04) X 10*3/uL Lymphocytes # (0.90-5.00) X 10*3/uL Eosinophils # (0.04-0.35) X 10*3/uL Sodium 134 L (135-145) mmol/L Anion Gap 12.60 H (4.00-12.00) mmol/L BUN 27.1 H (9.0-27.0) mg/dL Creatinine 5.6 H (0.6-1.5) mg/dL Est GFR (CKD-EPI) 11 L (>=60) BUN/Creatinine Ratio 4.84 L (12.00-20.00) Ratio Glucose 144 H (70-110) mg/dL Crossmatch
--- NOTE | 2023-07-02 11:47 | P.PN ---
Subjective patient is seen for follow-up for end-stage renal disease. seen on hemodialysis today. He Had improved and restarted during dialysis today. Computed tomography scan of the abdomen and chest was unremarkable. Objective - Vital Signs Vital signs: Vital Signs Temp 98.3 F 07/02/23 07:00 Pulse 64 07/02/23 07:00 Resp 16 07/02/23 07:00 BP 110/70 07/02/23 07:00 Pulse Ox 94 L 07/02/23 07:00 FiO2 Intake & Output 07/01/23 07/02/23 07/02/23 18:59 06:59 18:59 Intake Total 428 Balance 428 Intake: Oral 118 Blood Product 310 Rc As-1 Unit 310 [id number] Other: # Voids 2 1 # Bowel Movements 1 - Exam patient is awake, comfortable, alert oriented 3 Examination of the heart S1 and S2 Examination the lungs bilateral breath sounds are heard Abdomen is soft nontender [employer] exam grossly intact Trace edema noted in lower extremities - Labs CBC & Chem 7: 07/01/23 16:03 07/01/23 16:03 Labs: Abnormal Lab Results - Last 24 Hours (Table) 06/29/23 07/01/23 07/01/23 Range/Units 12:28 16:03 16:03 RBC 2.69 L (4.40-5.60) X 10*6/uL Hgb 7.9 L D 8.0 L (13.0-17.5) gm/dL Hct 25.9 L (39.6-50.0) % MCHC 30.9 L (32.0-37.0) g/dL RDW 17.5 H (11.5-14.5) % MPV 9.3 L (9.5-12.2) FL Immature Gran # 0.13 H (0.00-0.04) X 10*3/uL Lymphocytes # 0.37 L (0.90-5.00) X 10*3/uL Eosinophils # 0.01 L (0.04-0.35) X 10*3/uL Sodium 134 L (135-145) mmol/L Anion Gap 12.60 H (4.00-12.00) mmol/L BUN 27.1 H (9.0-27.0) mg/dL Creatinine 5.6 H (0.6-1.5) mg/dL Est GFR (CKD-EPI) 11 L (>=60) BUN/Creatinine Ratio 4.84 L (12.00-20.00) Ratio Glucose 144 H (70-110) mg/dL Assessment and Plan Assessment: 1. End-stage renal disease maintained on home hemodialysis on Friday, Friday, Friday and Friday schedule via femoral permacath. 2. Intractable hiccups , improving 3. Status post open repair of quadriceps tendon of the left knee on 06/24/2023 4. Recent history of fall and large ecchymosis over the abdominal wall and on the sides 5. CK D mineral bone disorder Plan: hemodialysis today Continue midodrine.
--- NOTE | 2023-07-02 13:06 | P.PN ---
Subjective Progress Note Date: 07/02/23 This is a pleasant 53-year-old male patient with a known history of atrial fibrillation, end-stage renal disease with previous kidney transplant, receiving hemodialysis, legally blind, seizure disorder, hypothyroidism, who had recently undergone an open repair of quadriceps tendons at the left knee for a ruptured quadricep tendon week on 06/24/2023. The procedure itself went well. The patient states since that time however he had been having issues with near constant hiccuping. Tried simple home remedies without much improvement. He presented here to the emergency room on the for the same. While he has the hiccups he did complain of shortness of breath and we are consulted today for the same. A CT scan of the chest and abdomen did reveal bilateral small effusions however otherwise unremarkable. Rest x-ray had revealed no acute pulmonary process and mild cardiomegaly. White count 8.0. Hemoglobin 7.0. Platelets 198. Sodium 138. Potassium 3.8. Bicarb 24. BUN 41. Creatinine 7.8. He is seen today in consultation on the regular medical floor. He is sitting up in a chair. Awake and alert in no acute distress. Maintaining good O2 saturations in the 90s on room air. He has not had a single hiccup since we have been in the room. He had been initiated on Pepcid, baclofen and Reglan which seems to be helping. The patient is seen today July 02, 2023 in follow-up on the regular medical floor. He is currently resting comfortably in bed. Awake and alert in no acute distress. Maintaining good O2 saturations in the 90s on room air. He denies any further issues with hiccups. He has been treated with baclofen, Reglan and Mylicon chews. Denies any shortness of breath, cough or congestion. He has been afebrile. Hemodynamically stable. CT scan of the abdomen pelvis revealed no suspicious obstruction or dilated loops of bowel. Transplant kidney with hydronephrosis and hydroureter. Polycystic kidneys with atrophy. CT scan of the chest revealed no suspicious abnormalities within the chest to account for hiccups. Small right and minimal left pleural effusion. Objective - Vital Signs Vital signs: Vital Signs Temp 98.1 F 07/02/23 12:11 Pulse 67 07/02/23 12:11 Resp 18 07/02/23 12:11 BP 128/65 07/02/23 12:11 Pulse Ox 94 L 07/02/23 07:00 FiO2 Intake & Output 07/01/23 07/02/23 07/02/23 18:59 06:59 18:59 Intake Total 428 400 Output Total 1500 Balance 428 -1100 Intake: Oral 118 Blood Product 310 Rc As-1 Unit 310 [id number] Hemodialysis 400 Output: Hemodialysis 1500 Other: # Voids 2 1 # Bowel Movements 1 - Exam GENERAL EXAM: Alert, 53-year-old male patient, on room air, in no apparent distress. HEAD: Normocephalic. EYES: Legally blind since 2018. Normal reaction of pupils, equal size. NOSE: Clear with pink turbinates. THROAT: No erythema or exudates. NECK: No masses, no JVD. CHEST: No chest wall deformity. LUNGS: Equal air entry with faint crackles in the posterior bases. CVS: S1 and S2 normal with no audible murmur, regular rhythm. ABDOMEN: Large area of ecchymosis of the abdominal wall and bilateral sides. No hepatosplenomegaly, normal bowel sounds, no guarding or rigidity. SPINE: No scoliosis or deformity SKIN: No rashes CENTRAL NERVOUS SYSTEM: No focal deficits, tone is normal in all 4 extremities. EXTREMITIES: Left upper extremity nonworking AV fistula. Right femoral Port-A-Cath in place. The left lower extremity is wrapped. There is no peripheral edema. No clubbing, no cyanosis. Peripheral pulses are intact. - Labs CBC & Chem 7: 07/01/23 16:03 07/01/23 16:03 Labs: Abnormal Lab Results - Last 24 Hours (Table) 06/29/23 07/01/23 07/01/23 Range/Units 12:28 16:03 16:03 RBC 2.69 L (4.40-5.60) X 10*6/uL Hgb 7.9 L D 8.0 L (13.0-17.5) gm/dL Hct 25.9 L (39.6-50.0) % MCHC 30.9 L (32.0-37.0) g/dL RDW 17.5 H (11.5-14.5) % MPV 9.3 L (9.5-12.2) FL Immature Gran # 0.13 H (0.00-0.04) X 10*3/uL Lymphocytes # 0.37 L (0.90-5.00) X 10*3/uL Eosinophils # 0.01 L (0.04-0.35) X 10*3/uL Sodium 134 L (135-145) mmol/L Anion Gap 12.60 H (4.00-12.00) mmol/L BUN 27.1 H (9.0-27.0) mg/dL Creatinine 5.6 H (0.6-1.5) mg/dL Est GFR (CKD-EPI) 11 L (>=60) BUN/Creatinine Ratio 4.84 L (12.00-20.00) Ratio Glucose 144 H (70-110) mg/dL Assessment and Plan Assessment: Intractable hiccups since left knee surgery on 06/24/2023 improved, CT scan of the chest and abdomen revealed no abnormalities to cause hiccups Shortness of breath while hiccuping, otherwise comfortable and on room air Small bilateral pleural effusions Recent open repair of quadriceps tendon of the left knee 06/24/2023 following a ruptured quadricep tendon End-stage renal disease receiving home hemodialysis. 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 Hyperlipidemia Gastroesophageal reflux disease History of seizures History of hypotension, on midodrine Plan: The patient was seen and evaluated CT scan of the abdomen and medications reviewed The patient is stable and on room air Hiccups have mostly resolved Continue Reglan, baclofen, Pepcid as needed Cleared for discharge from the pulmonary standpoint I have personally seen and examined the patient, performed the documentation and the assessment and plan as written. Number of minutes spent on the visit: 10.
[2023-07-02] MEDS: chlorproMAZINE 25 MG TAB PO SCH (15:28)
[2023-07-02] MEDS: METOCLOPRAMIDE 5 MG/ML 2 ML VIAL IVP SCH (15:31)
--- NOTE | 2023-07-02 17:42 | CA ---
Transthoracic Echo Report Name: Morgan Clark Age: 53 Gender: M : 1970 Exam Date: 07/02/2023 16:22 Exam Location: [facility] Ht (in): 69 Wt (lb): 180 Ordering Physician: Donna Taylor Attending/Referring Phys: Compensation Specialist Kiki Webb RCS Procedure CPT: Indications: pericardial effusion Cardiac Hx: Technical Quality: Good Contrast 1: Total Dose (mL): Contrast 2: Total Dose (mL): MEASUREMENTS (Male / Female) Normal Values 2D ECHO LV Diastolic Diameter PLAX 5.2 cm 4.2 - 5.9 / 3.9 - 5.3 cm LV Systolic Diameter PLAX 3.4 cm IVS Diastolic Thickness 1.3 cm 0.6 - 1.0 / 0.6 - 0.9 cm LVPW Diastolic Thickness 1.4 cm 0.6 - 1.0 / 0.6 - 0.9 cm LV Relative Wall Thickness 0.5 FINDINGS Left Ventricle Left ventricular ejection fraction is estimated at 60-65 %. Mildly increased septal wall thickness. Left ventricular cavity size normal. No obvious regional wall motion abnormalities. Right Ventricle Normal right ventricular size and function. Right Atrium Normal right atrial size by visual. Left Atrium Mild left atrial dilatation by visual. Mitral Valve Mitral valve thickened. Aortic Valve Trileaflet aortic valve. Tricuspid Valve Structurally normal tricuspid valve. Pulmonic Valve Structurally normal pulmonic valve. Pericardium No pericardial effusion. Aorta Aortic root and proximal ascending aorta not assessd. CONCLUSIONS No pericardial effusion note Previewed by: Dr. Ray Calvillo MD (Electronically Signed) Final Date: 02 July 2023 17:41
--- NOTE | 2023-07-03 05:26 | P.PN ---
Subjective Progress Note Date: 07/02/23 Patient is a 51-year-old male with a past medical history of recent fall and left lateral abdominal wall large ecchymosis, chronic atrial fibrillation not on anticoagulation due to frequent falls, legally blind, ESRD on hemodialysis Friday and Friday, hypothyroidism, seizure disorder, history of renal transplant failure and other multiple medical problems presents to ER with complaints of intractable hiccups started after surgery and has not been improving. Patient presented back to the hospital. Patient is status post open repair of quadriceps tendon on left knee by orthopedic surgery on 06/24/2023. Patient does have left knee cast. Denies any complaints of pain. Undergoing hemodialysis as per schedule. No complaints of chest pain or shortness of breath. No nausea vomiting abdomi nal pain or diarrhea. No dysuria or hematuria. No dizziness or lightheadedness. Laboratory data showed WBC 10.3 hemoglobin 7.9 and platelets 197, sodium 134 potassium 3.8 chloride 99 BUN 33 and creatinine 5.98, blood sugar 101 albumin 3.0 06/30/2023 Patient seen and evaluated in follow-up today continues to report frequent hiccups with no relief reporting it is making him short of breath. Chest x-ray showing cardiomegaly with no acute process. Nephrology following patient is scheduled to undergo hemodialysis. Will adjust medications and add IV Pepcid along with Reglan scheduled. Patient is afebrile with no reported chest pain or palpitations. Patient is tolerating diet and denies nausea or vomiting. Patient continues on subcu heparin. Hemoglobin is 7.0. Will give 1 unit of PRBC. 07/01/2023 Patient is seen and evaluated in follow-up this morning continues to report persistent hiccups with no relief causing abdominal pain and shortness of breath. Patient with nephrology following recommending pulmonary consultation which is currently pending. Patient continues on Reglan and will increase to 10 mg 3 times daily as scheduled, baclofen, and supportive care. Plan is for hemo dialysis tomorrow. Will obtain CT abdomen pelvis as patient is reporting abdominal pain and persistent hiccups. Patient is afebrile with no reports of chest pain or palpitations. 07/02/2023 Patient is seen this morning continues to have persistent hiccups with minimal relief. Patient being followed by multiple consultations and was continued on baclofen, Reglan, Pepcid with no significant relief. Will consult GI and neurology as well as cardiology as troponin was found to be slightly elevated. ESR and sed rate ordered this time. Hemoglobin is stable and patient is receiving hemodialysis today. Patient with no reports of chest pain or palpitations. Will order 2D echo as well. Patient reporting some his cast on the left lower extremity from recent tendon rupture repair and will consult orthopedics. Speech also evaluated the patient with no difficulties or issues with swallowing. CT abdomen pelvis from yesterday with no acute abnormalities noted. Review of systems: Constitutional: No reports of fatigue, fever, or chills Cardiovascular: No reports of chest pain or palpitations Respiratory: reports of shortness of breath from continuous hiccups GI: No reports of nausea, vomiting, or diarrhea, reports continued hiccups causing abdominal pain : No reports of dysuria or retention Neurovascular: No reports of weakness or numbness, reports left leg pain underneath the cast All medications have been reviewed PHYSICAL EXAMINATION: Patient is lying in the bed , awake alert and oriented x 3, well-developed, well-nourished, legally blind.. HEENT: Normocephalic. Neck is supple. Pupils reactive. Nostrils clear. Oral cavity is moist. Neck reveals no JVD, carotid bruits, or thyromegaly. CHEST EXAMINATION: Trachea is central. Symmetrical expansion. Lung maher clear to auscultation and percussion. Hiccups on exam CARDIAC: S1, S2 are muffled ABDOMEN: Soft. Obese. Bowel sounds normal. No organomegaly. No abdominal bruits. Extremities: reveal no edema. No clubbing or cyanosis Neurologically awake, alert, oriented x3 with well-coordinated movements. No focal deficits noted Skin: No rash or skin lesions. Psychiatric: Cooperative. Non-suicidal Musculoskeletal: No joint swelling or deformity. Left lower extremity cast in place Assessment: Intractable hiccups Status post open repair, quadriceps tendon of the left knee on 06/24/23 Recent history of fall with large ecchymosis over the left lateral abdominal wall and hypovolemic shock and also noted to have left knee swelling and MRI showed rupture of quadriceps tendon along with moderate-sized effusion within the joint. Patient was in the hospital from 05/31/2023 to 06/06/2023. Generalized weakness and frequent falls related to legal blindness and comorbidities. ESRD on hemodialysis Friday and Friday Anemia of chronic disease with hemoglobin around 9 at baseline, hemoglobin improved status post 1 unit of PRBC History of renal transplant in 1998 Chronic atrial fibrillation not on anticoagulation due to frequent falls and anemia Severely calcified aortic valve, moderate mitral calcification and mild to moderate MR Legally blind Hypothyroidism DVT prophylaxis with heparin subcu while in the hospital GI prophylaxis with PPI Full code Plan: Patient being followed by multiple medical complications. Patient continues to report hiccups continuously causing shortness of breath and abdominal pain. Thorazine 3 times daily told added and will discontinue Reglan and baclofen CT abdomen pelvis ordered for continued abdominal pain and persistent hiccups although no abnormalities noted to explain Hemoglobin improved status post 1 unit of PRBC, no active bleeding noted and hemoglobin is above 8 Nephrology following with hemodialysis, patient receiving dialysis today Pulmonary, neurology, GI, and orthopedics consulted. Orthopedics consulted as patient is reporting left lower extremity leg pain where his cast is from previous quadriceps tendon repair last week Continue with telemonitoring. Continue with amiodarone and metoprolol and other home medications including levothyroxine and prednisone 10 mg daily. Patient is also on midodrine as needed. Also on Florinef. Not on anticoagulation due to frequent falls and legally blind. Continue subcu heparin while in the hospital Due to multiple complex medical issues, prognosis is guarded The impression and plan of care has been dictated by Donna Taylor, Nurse Practitioner as directed. Dr. Emeterio MD I have performed a history and examination and MDM of this patient, discussed the same with the dictator, and agree with the dictator's assessment and plan as written ,documented as a scribe. Based on total visit time, I have performed more than 50% of the visit. Objective - Vital Signs Vital signs: Vital Signs Temp 98.1 F 07/02/23 12:11 Pulse 67 07/02/23 12:11 Resp 18 07/02/23 12:11 BP 128/65 07/02/23 12:11 Pulse Ox 94 L 07/02/23 07:00 FiO2 Intake & Output 07/01/23 07/02/23 07/02/23 18:59 06:59 18:59 Intake Total 428 400 Output Total 1500 Balance 428 -1100 Intake: Oral 118 Blood Product 310 Rc As-1 Unit 310 [id number] Hemodialysis 400 Output: Hemodialysis 1500 Other: # Voids 2 1 # Bowel Movements 1 - Labs CBC & Chem 7: 07/01/23 16:03 07/01/23 16:03 Labs: Abnormal Lab Results - Last 24 Hours (Table) 06/29/23 07/01/23 07/01/23 Range/Units 12:28 16:03 16:03 RBC 2.69 L (4.40-5.60) X 10*6/uL Hgb 7.9 L D 8.0 L (13.0-17.5) gm/dL Hct 25.9 L (39.6-50.0) % MCHC 30.9 L (32.0-37.0) g/dL RDW 17.5 H (11.5-14.5) % MPV 9.3 L (9.5-12.2) FL Immature Gran # 0.13 H (0.00-0.04) X 10*3/uL Lymphocytes # 0.37 L (0.90-5.00) X 10*3/uL Eosinophils # 0.01 L (0.04-0.35) X 10*3/uL Sodium 134 L (135-145) mmol/L Anion Gap 12.60 H (4.00-12.00) mmol/L BUN 27.1 H (9.0-27.0) mg/dL Creatinine 5.6 H (0.6-1.5) mg/dL Est GFR (CKD-EPI) 11 L (>=60) BUN/Creatinine Ratio 4.84 L (12.00-20.00) Ratio Glucose 144 H (70-110) mg/dL
--- NOTE | 2023-07-03 08:27 | CT ---
EXAMINATION TYPE: CT brain wo con DATE OF EXAM: 07/03/2023 COMPARISON: 01/10/2022 HISTORY: 53-year-old male R59.0 pain, unwitnessed fall, pt hit head on side of table TECHNIQUE: Examination was done in axial plane without intravenous contrast. Coronal and sagittal r econstructions performed. CT DLP: 1156 mGycm Automated exposure control for dose reduction was used. FINDINGS: There is no evidence of acute intracranial hemorrhage, acute ischemic changes, mass, mass-effect, or extra-axial fluid collection. There is no effacement of cerebral sulci or basal subarachnoid cister ns. There is no hydrocephalus. There is no midline shift. Campos-white matter distinction is preserv ed. Left-sided nasal septal deviation. Paranasal sinuses and mastoid air cells well pneumatized. Orbits a nd globes are intact. IMPRESSION: No acute intracranial abnormality seen.
[2023-07-03 08:52] LABS: Basophils # (A) 0.01 X 10*3/uL (0.00-0.10); Basophils % (A) 0.2 %; Eosinophils # (A) 0.03 X 10*3/uL (0.04-0.35); Eosinophils % (A) 0.6 %; HCT 26.6 % (39.6-50.0); HGB 8.2 g/dL (13.0-17.0); Lymphocytes # (A) 0.53 X 10*3/uL (0.90-5.00); Lymphocytes % (A) 9.8 %; MCH 29.3 pg (27.0-32.0); MCHC 30.8 g/dL (32.0-37.0); Mean Platelet Volume 9.1 FL (9.5-12.2); Monocytes # (A) 0.41 X 10*3/uL (0.20-1.00); Monocytes % (A) 7.6 %; NRBC Per 100 WBC 0 X 10*3/uL (0.00-0.01); Neutrophils % (A) 79.2 %; Platelet Count 201 X 10*3/uL (140-440); RDW 16.4 % (11.5-14.5); WBC 5.42 X 10*3/uL (4.50-10.00)
[2023-07-03 08:59] LABS: BUN/Creat Ratio 4.12 Ratio (12.00-20.00); Blood Urea Nitrogen 20.6 mg/dL (9.0-27.0); Calcium 8.9 mg/dL (8.7-10.3); Carbon Dioxide 26.2 mmol/L (21.6-31.8); Chloride 95 mmol/L (96-109); Glucose 77 mg/dL (70-110); Sodium 133 mmol/L (135-145)
--- NOTE | 2023-07-03 10:54 | P.CRDCN ---
History of Present Illness Consult date: 07/03/23 Reason for Consult (text): Elevated troponin History of present illness: History of present illness: This is a 53-year-old male patient of Dr. 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 We have been asked to evaluate the patient for elevated troponin. Patient initially presented to the hospital on 06/28 for hiccuping. He also has a recent ruptured quadricep tendon for which she is in a long-leg cast on the left. Patient has been seen by multiple consultants including nephrology, pulmonary medicine and GI has been consulted as well. Patient denies having any chest pain. Troponin was done yesterday which came back at 0.041. In the past patient has had chronically elevated troponins running between 0.07 and 0.05. EKG sinus rhythm with no acute ST-T wave changes. CT of the abdomen pelvis revealed no suspicious abnormality to account for hiccups. WBC 5.4, hemoglobin 8.2, platelet count 201. Sodium 133, potassium 4, creatinine 5. C-reactive protein 16.4. Troponin 0.041. Home cardiac medications: Amiodarone 200 mg twice daily, Lipitor 20 mg daily, Lopressor 25 mg twice daily, patient is also on Florinef and midodrine and levothyroxine. Limited echocardiogram performed on 07/02/2023 revealed no pericardial effusion. EF 60 to 65%. Echocardiogram performed 04/25/2023 revealed EF of 55 to 60%. Mild to moderate mitral regurgitation. Mild aortic regurgitation. Mild tricuspid regurgitation. Lexiscan stress test performed 05/14/2023 was negative for reversible ischemia. Review Of Systems: At the time of my exam: CONSTITUTIONAL: Denies fever or chills. HEENT: Denies blurred vision, vision changes, or eye pain. Denies hemoptysis CARDIOVASCULAR: Denies chest pain. Denies orthopnea. Denies PND. Denies palpitations RESPIRATORY: Denies shortness of breath. GASTROINTESTINAL: Denies abdominal pain. Denies nausea or vomiting. HEMATOLOGIC: Denies bleeding disorders. GENITOURINARY: Denies any blood in urine. SKIN: Denies pruitis. Denies rash. Physical examination: Gen: This is a 53-year-old male in no acute distress VS: reviewed HEENT: Head is atraumatic, normocephalic. Pupils equal, round. Sclerae is anicteric. NECK: Supple. No JVD. LUNGS: Clear to auscultation. No wheezes or rhonchi. No intercostal retractions. HEART: Regular rate and rhythm. Systolic ejection murmur. ABDOMEN: Soft No tenderness. EXTREMITIES: Left-sided long-leg cast in place. No calf tenderness. NEUROLOGICAL: Patient is awake, alert and oriented x3. Assessment: Chronically elevated troponin secondary to end-stage renal disease. No evidence of acute coronary syndrome or myocardial infarction. No complaints of chest pain End-stage renal disease on hemodialysis Hiccups Gastroesophageal reflux disease Paroxysmal atrial fibrillation currently in sinus rhythm History of moderate aortic stenosis Plan: Continue patient's home cardiac medications No further cardiac workup is warranted Patient may follow-up with Dr. Serrano in 1 to 2 weeks. Thank you kindly for this consultation. Nurse practitioner note has been reviewed, I agree with documented findings and plan of care. Patient was seen and examined. Past Medical History Past Medical History: Atrial Fibrillation, Dialysis, Eye Disorder, GERD/Reflux, Renal Disease, Seizure Disorder, Thyroid Disorder Additional Past Medical History / Comment(s): Recent fall with quadriceps tendon rupture. Gout. Bruises easily. 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 Kidney transplant in 1998. Hemodialysis [facility] at home. Hx anemia with blood transfusion. 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 Hx diverticulitis. Hx Shingles 02/2021. Hx approximately 7 grand mal seizures in 2021 when on dialysis, unknown etiology, none since. Has nonactive left arm dialysis graft and functioning right groin dialysis port. Frequent headaches. Low blood pressure at times. History of Any Multi-Drug Resistant Organisms: None Reported Additional Past Surgical History / Comment(s): Fistula placement, thyroidectomy, kidney transplant, toenails removed. Past Anesthesia/Blood Transfusion Reactions: No Reported Reaction Additional Past Anesthesia/Blood Transfusion Reaction / Comment(s): Blood transfusion - had no issues. Past Psychological History: No Psychological Hx Reported Additional Psychological History / Comment(s): Pt resides with his mother who is his caregiver. Pt ambulates without device/he memorizes where furniture is placed. Mother performs hemodialysis 4 days a week. 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 No home care. Smoking Status: Never smoker Past Alcohol Use History: None Reported Past Drug Use History: None Reported - Past Family History Mother Family Medical History: Fibromyalgia, Osteoarthritis (OA) Additional Family Medical History / Comment(s): Lupus Family Family Medical History: No Reported History Additional Family Medical History / Comment(s): ETOH abuse Medications and Allergies Home Medications Medication Instructions Recorded Confirmed Type Levothyroxine Sodium [Synthroid] 50 mcg PO DAILY 12/18/17 06/29/23 History Montelukast [Singulair] 10 mg PO HS 12/18/17 06/29/23 History predniSONE 10 mg PO DAILY 04/25/21 06/29/23 History Atorvastatin [Lipitor] 20 mg PO DAILY 10/15/22 06/29/23 History Midodrine HCl [ProAmatine] 10 mg PO QID PRN 10/15/22 06/29/23 History calcitrioL 0.25 mcg PO SUTUWETHSA 10/15/22 06/29/23 History calcitrioL 0.5 mcg PO MOFR 10/15/22 06/29/23 History Omeprazole [PriLOSEC] 20 mg PO PC-SUPPER 04/25/23 06/29/23 History methocarbamoL [Robaxin-750] 1,500 mg PO TID PRN 7 Days #42 tab 05/28/23 06/29/23 Rx Amiodarone [Cordarone] 200 mg PO BID #60 tab 06/06/23 06/29/23 Rx Metoprolol Tartrate [Lopressor] 25 mg PO BID #60 tab 06/06/23 06/29/23 Rx Simethicone Chew [Mylicon Chew] 40 mg PO QID PRN #30 tab 06/06/23 06/29/23 Rx Acetaminophen Tab [Tylenol] 650 mg PO Q4HR PRN 06/23/23 06/29/23 History Fludrocortisone [Florinef] 0.1 mg PO DAILY 06/23/23 06/29/23 History allopurinoL 100 mg PO DAILY 06/23/23 06/29/23 History HYDROcodone/APAP 5-325MG [[place] 1 - 2 tab PO Q6HR PRN #32 tab 06/25/23 06/29/23 Rx 5-325] Allergies Allergy/AdvReac Type Severity Reaction Status Date / Time adhesive tape Allergy Itching Verified 06/29/23 16:07 codeine Allergy Rash/Hives Verified 06/29/23 16:07 cyclobenzaprine Allergy Rash/Hives Verified 06/29/23 16:07 [From Flexeril] diphenhydramine Allergy Anaphylaxis Verified 06/29/23 16:07 [From Benadryl] hydromorphone [From Dilaudid] Allergy Rash/Hives Verified 06/29/23 16:07 hydroxyzine Allergy Anaphylaxis Verified 06/29/23 16:07 Iodinated Contrast Media Allergy Anaphylaxis Verified 06/29/23 16:07 [Iodinated Contrast- Oral and IV Dye] pantoprazole [From Protonix] Allergy Anaphylaxis Verified 06/29/23 16:07 Penicillins Allergy Rash/Hives Verified 06/29/23 16:07 potassium chloride Allergy Rash/Hives Verified 06/29/23 16:07 pregabalin [From Lyrica] Allergy Anaphylaxis Verified 06/29/23 16:07 sevelamer Allergy Rash/Hives Verified 06/29/23 16:07 warfarin [From Coumadin] Allergy Anaphylaxis Verified 06/29/23 16:07 acetaminophen [From Vicodin] AdvReac Nausea & Verified 06/29/23 16:07 Vomiting aripiprazole [From Abilify] AdvReac Abdominal Verified 06/29/23 16:07 Pain aztreonam AdvReac Unknown Verified 06/29/23 16:07 calcitriol AdvReac Unknown Verified 06/29/23 16:07 cefadroxil AdvReac Unknown Verified 06/29/23 16:07 enalapril AdvReac Unknown Verified 06/29/23 16:07 hydrocodone [From Vicodin] AdvReac Nausea & Verified 06/29/23 16:07 Vomiting Influenza Virus Vaccines AdvReac Unknown Verified 06/29/23 16:07 levofloxacin [From Levaquin] AdvReac Abdominal Verified 06/29/23 16:07 Pain meloxicam [From Mobic] AdvReac Abdominal Verified 06/29/23 16:07 Pain morphine AdvReac Unknown Verified 06/29/23 16:07 propoxyphene AdvReac Unknown Verified 06/29/23 16:07 Sulfa (Sulfonamide AdvReac Vomiting Verified 06/29/23 16:07 Antibiotics) tramadol AdvReac no Verified 06/29/23 16:07 allergy, just does not work for him Physical Exam Vitals: Vital Signs Temp Pulse Resp BP Pulse Ox 07/03/23 08:00 97.5 F L 63 18 152/82 100 07/03/23 01:34 97.8 F 106 H 16 148/80 95 07/02/23 19:22 97.7 F 107 H 16 138/76 94 L 07/02/23 15:00 98.6 F 59 L 16 106/53 97 07/02/23 12:11 98.1 F 67 18 128/65 Intake and Output 07/02/23 07/03/23 07/03/23 22:59 06:59 14:59 Other: # Voids 0 # Bowel Movements 0 Results 07/03/23 06:01 07/03/23 06:01 Cardiac Enzymes 07/02/23 Range/Units 14:40 Troponin I 0.041 H* (0.000-0.034) ng/mL Current Medications Generic Name Dose Route Start Last Admin Trade Name Freq PRN Reason Stop Dose Admin Acetaminophen 650 mg 06/29/23 21:15 07/02/23 11:13 Acetaminophen Tab 325 Mg Tab PO 650 mg Q4HR PRN Administration Pain/Headache Hydrocodone Bitart/Acetaminophen 1 - 2 each 06/29/23 21:15 07/02/23 18:32 Hydrocodone/Apap 5-325mg 1 Each Tab PO 2 each Q6HR PRN Administration Pain Allopurinol 100 mg 06/30/23 09:00 07/02/23 10:50 Allopurinol 100 Mg Tab PO 100 mg DAILY BASIL Administration Amiodarone HCl 200 mg 06/30/23 09:00 07/02/23 20:28 Amiodarone 200 Mg Tab PO 200 mg BID BASIL Administration Atorvastatin Calcium 20 mg 06/30/23 09:00 07/02/23 10:51 Atorvastatin 20 Mg Tab PO 20 mg DAILY BASIL Administration Baclofen 10 mg 06/29/23 22:37 Baclofen 10 Mg Tab PO ONCE PRN Muscle Spasm Calcitriol 0.25 mcg 07/01/23 09:00 07/02/23 10:51 Calcitriol 0.25 Mcg Cap PO 0.25 mcg [id number]@0900 BASIL Administration Calcitriol 0.5 mcg 06/30/23 05:00 06/30/23 05:39 Calcitriol 0.25 Mcg Cap PO 0.5 mcg MoFr@0500 BASIL Administration Chlorpromazine HCl 25 mg 07/02/23 14:00 07/02/23 20:29 Chlorpromazine 25 Mg Tab PO 25 mg TID BASIL Administration Darbepoetin Martin 60 mcg 07/01/23 15:00 07/01/23 15:58 Darbepoetin Martin 60 Mcg/0.3 Ml Syringe SQ 60 mcg Q7D BASIL Administration Famotidine 10 mg 06/30/23 13:00 07/02/23 20:29 Famotidine 20 Mg/2 Ml Vial IVP 10 mg BID [facility] Administration Fludrocortisone Acetate 0.1 mg 06/30/23 09:00 07/02/23 10:51 Fludrocortisone 0.1 Mg Tab PO 0.1 mg DAILY [facility] Administration Heparin Sodium (Porcine) 5,000 unit 06/30/23 21:00 07/02/23 20:29 Heparin Sodium,Porcine 5,000 Unit/Ml 1 Ml Vial SQ Not Given Q12H [facility] Levothyroxine Sodium 50 mcg 06/30/23 06:30 07/03/23 06:32 Levothyroxine 50 Mcg Tab PO 50 mcg DAILY@0630 [facility] Administration Metoprolol Tartrate 25 mg 06/29/23 22:45 07/02/23 20:29 Metoprolol Tartrate 25 Mg Tab PO 25 mg BID [facility] Administration Midodrine 10 mg 06/29/23 22:00 06/30/23 19:19 Midodrine 5 Mg Tab PO 10 mg QID PRN Administration low bp Montelukast Sodium 10 mg 06/30/23 21:00 07/02/23 20:29 Montelukast 10 Mg Tab PO 10 mg HS [facility] Administration Naloxone HCl 0.2 mg 06/29/23 15:17 Naloxone 0.4 Mg/Ml 1 Ml Vial IV Q2M PRN Opioid Reversal Prednisone 10 mg 06/30/23 09:00 07/02/23 10:50 Prednisone 10 Mg Tab PO 10 mg DAILY [facility] Administration Simethicone 40 mg 06/29/23 22:34 07/01/23 06:26 Simethicone 80 Mg Chewable PO 40 mg QID PRN Administration Bloating Intake and Output 07/02/23 07/03/23 07/03/23 22:59 06:59 14:59 Other: # Voids 0 # Bowel Movements 0 07/01/23 16:03 07/01/23 16:03
--- NOTE | 2023-07-03 10:57 | P.CNOR ---
History of Present Illness - [facility] Consult date: 07/03/23 Consult reason: other (Follow-up left lower extremity.) History of present illness: Patient is a 51-year-old male with a past medical history of recent fall and left lateral abdominal wall large ecchymosis, chronic atrial fibrillation not on anticoagulation due to frequent falls, legally blind, ESRD on hemodialysis Friday and Friday, hypothyroidism, seizure disorder, history of renal transplant failure and other multiple medical problems presents to ER with complaints of intractable hiccups started after surgery and has not been improving. The patient has history of quadricep tendon repair and is in the long-leg cast. Denies any complaints of pain. He states that his cast is fitting well. He has no areas of discomfort or soreness in the cast. He does not feel that it is too tight. Undergoing hemodialysis as per schedule. Past Medical History Past Medical History: Atrial Fibrillation, Dialysis, Eye Disorder, GERD/Reflux, Renal Disease, Seizure Disorder, Thyroid Disorder Additional Past Medical History / Comment(s): Recent fall with quadriceps tendon rupture. Gout. Bruises easily. 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 Kidney transplant in 1998. Hemodialysis [facility] at home. Hx anemia with blood transfusion. 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 Hx diverticulitis. Hx Shingles 02/2021. Hx approximately 7 grand mal seizures in 2021 when on dialysis, unknown etiology, none since. Has nonactive left arm dialysis graft and functioning right groin dialysis port. Frequent headaches. Low blood pressure at times. History of Any Multi-Drug Resistant Organisms: None Reported Additional Past Surgical History / Comment(s): Fistula placement, thyroidectomy, kidney transplant, toenails removed. Past Anesthesia/Blood Transfusion Reactions: No Reported Reaction Additional Past Anesthesia/Blood Transfusion Reaction / Comm: Blood transfusion - had no issues. Past Psychological History: No Psychological Hx Reported Additional Psychological History / Comment(s): Pt resides with his mother who is his caregiver. Pt ambulates without device/he memorizes where furniture is placed. Mother performs hemodialysis 4 days a week. 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 No home care. Smoking Status: Never smoker Past Alcohol Use History: None Reported Past Drug Use History: None Reported - Past Family History Mother Family Medical History: Fibromyalgia, Osteoarthritis (OA) Additional Family Medical History / Comment(s): Lupus Family Family Medical History: No Reported History Additional Family Medical History / Comment(s): ETOH abuse Medications and Allergies Home Medications Medication Instructions Recorded Confirmed Type Levothyroxine Sodium [Synthroid] 50 mcg PO DAILY 12/18/17 06/29/23 History Montelukast [Singulair] 10 mg PO HS 12/18/17 06/29/23 History predniSONE 10 mg PO DAILY 04/25/21 06/29/23 History Atorvastatin [Lipitor] 20 mg PO DAILY 10/15/22 06/29/23 History Midodrine HCl [ProAmatine] 10 mg PO QID PRN 10/15/22 06/29/23 History calcitrioL 0.25 mcg PO SUTUWETHSA 10/15/22 06/29/23 History calcitrioL 0.5 mcg PO MOFR 10/15/22 06/29/23 History Omeprazole [PriLOSEC] 20 mg PO PC-SUPPER 04/25/23 06/29/23 History methocarbamoL [Robaxin-750] 1,500 mg PO TID PRN 7 Days #42 tab 05/28/23 06/29/23 Rx Amiodarone [Cordarone] 200 mg PO BID #60 tab 06/06/23 06/29/23 Rx Metoprolol Tartrate [Lopressor] 25 mg PO BID #60 tab 06/06/23 06/29/23 Rx Simethicone Chew [Mylicon Chew] 40 mg PO QID PRN #30 tab 06/06/23 06/29/23 Rx Acetaminophen Tab [Tylenol] 650 mg PO Q4HR PRN 06/23/23 06/29/23 History Fludrocortisone [Florinef] 0.1 mg PO DAILY 06/23/23 06/29/23 History allopurinoL 100 mg PO DAILY 06/23/23 06/29/23 History HYDROcodone/APAP 5-325MG [[place] 1 - 2 tab PO Q6HR PRN #32 tab 06/25/23 06/29/23 Rx 5-325] Allergies Allergy/AdvReac Type Severity Reaction Status Date / Time adhesive tape Allergy Itching Verified 06/29/23 16:07 codeine Allergy Rash/Hives Verified 06/29/23 16:07 cyclobenzaprine Allergy Rash/Hives Verified 06/29/23 16:07 [From Flexeril] diphenhydramine Allergy Anaphylaxis Verified 06/29/23 16:07 [From Benadryl] hydromorphone [From Dilaudid] Allergy Rash/Hives Verified 06/29/23 16:07 hydroxyzine Allergy Anaphylaxis Verified 06/29/23 16:07 Iodinated Contrast Media Allergy Anaphylaxis Verified 06/29/23 16:07 [Iodinated Contrast- Oral and IV Dye] pantoprazole [From Protonix] Allergy Anaphylaxis Verified 06/29/23 16:07 Penicillins Allergy Rash/Hives Verified 06/29/23 16:07 potassium chloride Allergy Rash/Hives Verified 06/29/23 16:07 pregabalin [From Lyrica] Allergy Anaphylaxis Verified 06/29/23 16:07 sevelamer Allergy Rash/Hives Verified 06/29/23 16:07 warfarin [From Coumadin] Allergy Anaphylaxis Verified 06/29/23 16:07 acetaminophen [From Vicodin] AdvReac Nausea & Verified 06/29/23 16:07 Vomiting aripiprazole [From Abilify] AdvReac Abdominal Verified 06/29/23 16:07 Pain aztreonam AdvReac Unknown Verified 06/29/23 16:07 calcitriol AdvReac Unknown Verified 06/29/23 16:07 cefadroxil AdvReac Unknown Verified 06/29/23 16:07 enalapril AdvReac Unknown Verified 06/29/23 16:07 hydrocodone [From Vicodin] AdvReac Nausea & Verified 06/29/23 16:07 Vomiting Influenza Virus Vaccines AdvReac Unknown Verified 06/29/23 16:07 levofloxacin [From Levaquin] AdvReac Abdominal Verified 06/29/23 16:07 Pain meloxicam [From Mobic] AdvReac Abdominal Verified 06/29/23 16:07 Pain morphine AdvReac Unknown Verified 06/29/23 16:07 propoxyphene AdvReac Unknown Verified 06/29/23 16:07 Sulfa (Sulfonamide AdvReac Vomiting Verified 06/29/23 16:07 Antibiotics) tramadol AdvReac no Verified 06/29/23 16:07 allergy, just does not work for him Physical Examination This is a 53-year-old male who appears quite sedated this morning. He is arousable but seems slightly confused. When asked about the cast he states that there is no discomfort. He is able to wiggle his toes. I am able to fit 3 fingers inside the cast proximally and 2 fingers inside the cast distally. He has no hip pain with motion of the lower extremity. Neurovascular status to the lower extremities grossly intact. Results - Labs Labs: Abnormal Lab Results - Last 24 Hours (Table) 07/02/23 07/02/23 07/02/23 Range/Units 14:40 14:40 14:40 RBC (4.40-5.60) X 10*6/uL Hgb (13.0-17.0) g/dL Hct (39.6-50.0) % MCHC (32.0-37.0) g/dL RDW (11.5-14.5) % MPV (9.5-12.2) FL Immature Gran # (0.00-0.04) X 10*3/uL Lymphocytes # (0.90-5.00) X 10*3/uL Eosinophils # (0.04-0.35) X 10*3/uL ESR 49 H (0-20) mm/Hr Sodium (135-145) mmol/L Chloride (96-109) mmol/L Creatinine (0.6-1.5) mg/dL Est GFR (CKD-EPI) (>=60) BUN/Creatinine Ratio (12.00-20.00) Ratio Troponin I 0.041 H* (0.000-0.034) ng/mL C-Reactive Protein 16.4 H (<1.0) mg/dL 07/03/23 07/03/23 Range/Units 06:01 06:01 RBC 2.80 L (4.40-5.60) X 10*6/uL Hgb 8.2 L (13.0-17.0) g/dL Hct 26.6 L (39.6-50.0) % MCHC 30.8 L (32.0-37.0) g/dL RDW 16.4 H (11.5-14.5) % MPV 9.1 L (9.5-12.2) FL Immature Gran # 0.14 H (0.00-0.04) X 10*3/uL Lymphocytes # 0.53 L (0.90-5.00) X 10*3/uL Eosinophils # 0.03 L (0.04-0.35) X 10*3/uL ESR (0-20) mm/Hr Sodium 133 L (135-145) mmol/L Chloride 95 L (96-109) mmol/L Creatinine 5.0 H (0.6-1.5) mg/dL Est GFR (CKD-EPI) 13 L (>=60) BUN/Creatinine Ratio 4.12 L (12.00-20.00) Ratio Troponin I (0.000-0.034) ng/mL C-Reactive Protein (<1.0) mg/dL H & H 06/29/23 06/30/23 07/01/23 Range/Units 12:28 06:44 16:03 Hgb 7.9 L D 7.0 L 8.0 L (13.0-17.5) gm/dL Hct 24.1 L 23.5 L 25.9 L (39.0-53.0) % 07/03/23 Range/Units 06:01 Hgb 8.2 L (13.0-17.5) gm/dL Hct 26.6 L (39.0-53.0) % Result Diagrams: 07/03/23 06:01 07/03/23 06:01 Assessment and Plan Assessment: 1. multiple medical comorbidities. 2. Status post quadricep repair left leg. 3. Intractable hiccups. Plan: The clinical findings are discussed with the patient and with nursing staff. He may continue in the current cast. He is to follow-up in our office upon discharge from the hospital.
--- NOTE | 2023-07-03 12:31 | P.PN ---
Subjective Progress Note Date: 07/03/23 This is a pleasant 53-year-old male patient with a known history of atrial fibrillation, end-stage renal disease with previous kidney transplant, receiving hemodialysis, legally blind, seizure disorder, hypothyroidism, who had recently undergone an open repair of quadriceps tendons at the left knee for a ruptured quadricep tendon week on 06/24/2023. The procedure itself went well. The patient states since that time however he had been having issues with near constant hiccuping. Tried simple home remedies without much improvement. He presented here to the emergency room on the for the same. While he has the hiccups he did complain of shortness of breath and we are consulted today for the same. A CT scan of the chest and abdomen did reveal bilateral small effusions however otherwise unremarkable. Rest x-ray had revealed no acute pulmonary process and mild cardiomegaly. White count 8.0. Hemoglobin 7.0. Platelets 198. Sodium 138. Potassium 3.8. Bicarb 24. BUN 41. Creatinine 7.8. He is seen today in consultation on the regular medical floor. He is sitting up in a chair. Awake and alert in no acute distress. Maintaining good O2 saturations in the 90s on room air. He has not had a single hiccup since we have been in the room. He had been initiated on Pepcid, baclofen and Reglan which seems to be helping. The patient is seen today July 02, 2023 in follow-up on the regular medical floor. He is currently resting comfortably in bed. Awake and alert in no acute distress. Maintaining good O2 saturations in the 90s on room air. He denies any further issues with hiccups. He has been treated with baclofen, Reglan and Mylicon chews. Denies any shortness of breath, cough or congestion. He has been afebrile. Hemodynamically stable. CT scan of the abdomen pelvis revealed no suspicious obstruction or dilated loops of bowel. Transplant kidney with hydronephrosis and hydroureter. Polycystic kidneys with atrophy. CT scan of the chest revealed no suspicious abnormalities within the chest to account for hiccups. Small right and minimal left pleural effusion. The patient is seen today July 03, 2023 in follow-up on the regular medical floor. He is awake and alert in no acute distress. Resting comfortably in bed. He states his hiccups have improved by at least 80%. He did have a fall last night that was unwitnessed he stated he is slid off the bed. Maybe hit his head on the side of the table. CT scan of the brain revealed no acute intracranial process. He is status post 1 unit of packed red blood cells this admission. Current hemoglobin 8.2. Platelets 201. Count 5.4. Sodium 133. Potassium 4.0. Bicarb 26. BUN 21. Creatinine 5.0. His dialysis schedule is Friday. Heparin for DVT prophylaxis. Objective - Vital Signs Vital signs: Vital Signs Temp 97.5 F L 07/03/23 08:00 Pulse 63 07/03/23 08:00 Resp 18 07/03/23 08:00 BP 152/82 07/03/23 08:00 Pulse Ox 100 07/03/23 08:00 FiO2 Intake & Output 07/02/23 07/03/23 07/03/23 18:59 06:59 18:59 Intake Total 400 Output Total 1500 Balance -1100 Intake: Hemodialysis 400 Output: Hemodialysis 1500 Other: # Voids 1 0 # Bowel Movements 0 - Exam GENERAL EXAM: Alert, 53-year-old male patient, sitting comfortably in bed, on room air, in no apparent distress. HEAD: Normocephalic. EYES: Legally blind since 2018. Normal reaction of pupils, equal size. NOSE: Clear with pink turbinates. THROAT: No erythema or exudates. NECK: No masses, no JVD. CHEST: No chest wall deformity. LUNGS: Equal air entry with faint crackles in the posterior bases. CVS: S1 and S2 normal with no audible murmur, regular rhythm. ABDOMEN: Large area of ecchymosis of the abdominal wall and bilateral sides. No hepatosplenomegaly, normal bowel sounds, no guarding or rigidity. SPINE: No scoliosis or deformity SKIN: No rashes CENTRAL NERVOUS SYSTEM: No focal deficits, tone is normal in all 4 extremities. EXTREMITIES: Left upper extremity nonworking AV fistula. Right femoral Port-A-Cath in place. The left lower extremity is in a long cast. There is no peripheral edema. No clubbing, no cyanosis. Peripheral pulses are intact. - Labs CBC & Chem 7: 07/03/23 06:01 07/03/23 06:01 Labs: Abnormal Lab Results - Last 24 Hours (Table) 07/02/23 07/02/23 07/02/23 Range/Units 14:40 14:40 14:40 RBC (4.40-5.60) X 10*6/uL Hgb (13.0-17.0) g/dL Hct (39.6-50.0) % MCHC (32.0-37.0) g/dL RDW (11.5-14.5) % MPV (9.5-12.2) FL Immature Gran # (0.00-0.04) X 10*3/uL Lymphocytes # (0.90-5.00) X 10*3/uL Eosinophils # (0.04-0.35) X 10*3/uL ESR 49 H (0-20) mm/Hr Sodium (135-145) mmol/L Chloride (96-109) mmol/L Creatinine (0.6-1.5) mg/dL Est GFR (CKD-EPI) (>=60) BUN/Creatinine Ratio (12.00-20.00) Ratio Troponin I 0.041 H* (0.000-0.034) ng/mL C-Reactive Protein 16.4 H (<1.0) mg/dL 07/03/23 07/03/23 Range/Units 06:01 06:01 RBC 2.80 L (4.40-5.60) X 10*6/uL Hgb 8.2 L (13.0-17.0) g/dL Hct 26.6 L (39.6-50.0) % MCHC 30.8 L (32.0-37.0) g/dL RDW 16.4 H (11.5-14.5) % MPV 9.1 L (9.5-12.2) FL Immature Gran # 0.14 H (0.00-0.04) X 10*3/uL Lymphocytes # 0.53 L (0.90-5.00) X 10*3/uL Eosinophils # 0.03 L (0.04-0.35) X 10*3/uL ESR (0-20) mm/Hr Sodium 133 L (135-145) mmol/L Chloride 95 L (96-109) mmol/L Creatinine 5.0 H (0.6-1.5) mg/dL Est GFR (CKD-EPI) 13 L (>=60) BUN/Creatinine Ratio 4.12 L (12.00-20.00) Ratio Troponin I (0.000-0.034) ng/mL C-Reactive Protein (<1.0) mg/dL Assessment and Plan Assessment: Intractable hiccups since left knee surgery on 06/24/2023 improved, CT scan of the chest and abdomen revealed no abnormalities to cause hiccups Shortness of breath while hiccuping, otherwise comfortable and on room air Small bilateral pleural effusions Recent open repair of quadriceps tendon of the left knee 06/24/2023 following a ruptured quadricep tendon End-stage renal disease receiving home hemodialysis. 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 Hyperlipidemia Gastroesophageal reflux disease History of seizures History of hypotension, on midodrine Plan: The patient was seen and evaluated CT scan of the brain, labs and medications reviewed The patient is stable and on room air Hiccups have mostly resolved Plan is to return home with his mother This patient was seen independently by the pulmonary nurse practitioner addressing pulmonary issues I have personally seen and examined the patient, performed the documentation and the assessment and plan as written. Number of minutes spent on the visit: 23.
[2023-07-03] MEDS: METOCLOPRAMIDE 5 MG/ML 2 ML VIAL IVP SCH (15:47)
--- NOTE | 2023-07-03 17:26 | P.CONS ---
History of Present Illness - Reason for Consult Consult date: 07/03/23 Intractable hiccups Requesting physician: Donna Taylor - Chief Complaint Hiccups - History of Present Illness This 53-year-old male HPI is obtained from chart as patient is not arousable. Apparently patient had a history of a recent fall and a left lateral abdominal wall contusion, chronic atrial fibrillation due to frequent falls, legally blind, end-stage renal disease on hemodialysis, hypothyroidism, seizure disorder, history of renal transplant failure and multiple other comorbidities came to the emergency department on 06/29/2023 with complaints of intractable hiccups following his surgery. Patient had a open repair of his quadriceps tendon of the left knee by orthopedics on 06/24/2023. Gastroenterology was consulted for intractable hiccups. Patient has been here for 4 days with multiple consultants on. He is currently on Thorazine. Again into see and evaluate patient however appears to be in a deep sleep. He was attempted to be woken up several times however we would not wake up long enough to given interview. Patient does not appear like he has any pain, there is no hiccups Review of Systems ROS unobtainable: due to mental status Past Medical History Past Medical History: Atrial Fibrillation, Dialysis, Eye Disorder, GERD/Reflux, Renal Disease, Seizure Disorder, Thyroid Disorder Additional Past Medical History / Comment(s): Recent fall with quadriceps tendon rupture. Gout. Bruises easily. 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 Kidney transplant in 1998. Hemodialysis [facility] at home. Hx anemia with blood transfusion. 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 Hx diverticulitis. Hx Shingles 02/2021. Hx approximately 7 grand mal seizures in 2021 when on dialysis, unknown etiology, none since. Has nonactive left arm dialysis graft and functioning right groin dialysis port. Frequent headaches. Low blood pressure at times. History of Any Multi-Drug Resistant Organisms: None Reported Additional Past Surgical History / Comment(s): Fistula placement, thyroidectomy, kidney transplant, toenails removed. Past Anesthesia/Blood Transfusion Reactions: No Reported Reaction Additional Past Anesthesia/Blood Transfusion Reaction / Comm: Blood transfusion - had no issues. Past Psychological History: No Psychological Hx Reported Additional Psychological History / Comment(s): Pt resides with his mother who is his caregiver. Pt ambulates without device/he memorizes where furniture is placed. Mother performs hemodialysis 4 days a week. 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 No devon e care. Smoking Status: Never smoker Past Alcohol Use History: None Reported Past Drug Use History: None Reported - Past Family History Mother Family Medical History: Fibromyalgia, Osteoarthritis (OA) Additional Family Medical History / Comment(s): Lupus Family Family Medical History: No Reported History Additional Family Medical History / Comment(s): ETOH abuse Medications and Allergies Home Medications Medication Instructions Recorded Confirmed Type Levothyroxine Sodium [Synthroid] 50 mcg PO DAILY 12/18/17 06/29/23 History Montelukast [Singulair] 10 mg PO HS 12/18/17 06/29/23 History predniSONE 10 mg PO DAILY 04/25/21 06/29/23 History Atorvastatin [Lipitor] 20 mg PO DAILY 10/15/22 06/29/23 History Midodrine HCl [ProAmatine] 10 mg PO QID PRN 10/15/22 06/29/23 History calcitrioL 0.25 mcg PO SUTUWETHSA 10/15/22 06/29/23 History calcitrioL 0.5 mcg PO MOFR 10/15/22 06/29/23 History Omeprazole [PriLOSEC] 20 mg PO PC-SUPPER 04/25/23 06/29/23 History methocarbamoL [Robaxin-750] 1,500 mg PO TID PRN 7 Days #42 tab 05/28/23 06/29/23 Rx Amiodarone [Cordarone] 200 mg PO BID #60 tab 06/06/23 06/29/23 Rx Metoprolol Tartrate [Lopressor] 25 mg PO BID #60 tab 06/06/23 06/29/23 Rx Simethicone Chew [Mylicon Chew] 40 mg PO QID PRN #30 tab 06/06/23 06/29/23 Rx Acetaminophen Tab [Tylenol] 650 mg PO Q4HR PRN 06/23/23 06/29/23 History Fludrocortisone [Florinef] 0.1 mg PO DAILY 06/23/23 06/29/23 History allopurinoL 100 mg PO DAILY 06/23/23 06/29/23 History HYDROcodone/APAP 5-325MG [Bowie 1 - 2 tab PO Q6HR PRN #32 tab 06/25/23 06/29/23 Rx 5-325] Allergies Allergy/AdvReac Type Severity Reaction Status Date / Time adhesive tape Allergy Itching Verified 06/29/23 16:07 codeine Allergy Rash/Hives Verified 06/29/23 16:07 cyclobenzaprine Allergy Rash/Hives Verified 06/29/23 16:07 [From Flexeril] diphenhydramine Allergy Anaphylaxis Verified 06/29/23 16:07 [From Benadryl] hydromorphone [From Dilaudid] Allergy Rash/Hives Verified 06/29/23 16:07 hydroxyzine Allergy Anaphylaxis Verified 06/29/23 16:07 Iodinated Contrast Media Allergy Anaphylaxis Verified 06/29/23 16:07 [Iodinated Contrast- Oral and IV Dye] pantoprazole [From Protonix] Allergy Anaphylaxis Verified 06/29/23 16:07 Penicillins Allergy Rash/Hives Verified 06/29/23 16:07 potassium chloride Allergy Rash/Hives Verified 06/29/23 16:07 pregabalin [From Lyrica] Allergy Anaphylaxis Verified 06/29/23 16:07 sevelamer Allergy Rash/Hives Verified 06/29/23 16:07 warfarin [From Coumadin] Allergy Anaphylaxis Verified 06/29/23 16:07 acetaminophen [From Vicodin] AdvReac Nausea & Verified 06/29/23 16:07 Vomiting aripiprazole [From Abilify] AdvReac Abdominal Verified 06/29/23 16:07 Pain aztreonam AdvReac Unknown Verified 06/29/23 16:07 calcitriol AdvReac Unknown Verified 06/29/23 16:07 cefadroxil AdvReac Unknown Verified 06/29/23 16:07 enalapril AdvReac Unknown Verified 06/29/23 16:07 hydrocodone [From Vicodin] AdvReac Nausea & Verified 06/29/23 16:07 Vomiting Influenza Virus Vaccines AdvReac Unknown Verified 06/29/23 16:07 levofloxacin [From Levaquin] AdvReac Abdominal Verified 06/29/23 16:07 Pain meloxicam [From Mobic] AdvReac Abdominal Verified 06/29/23 16:07 Pain morphine AdvReac Unknown Verified 06/29/23 16:07 propoxyphene AdvReac Unknown Verified 06/29/23 16:07 Sulfa (Sulfonamide AdvReac Vomiting Verified 06/29/23 16:07 Antibiotics) tramadol AdvReac no Verified 06/29/23 16:07 allergy, just does not work for him Physical Exam Vitals: Vital Signs Temp Pulse Resp BP Pulse Ox 07/03/23 08:00 97.5 F L 63 18 152/82 100 07/03/23 01:34 97.8 F 106 H 16 148/80 95 07/02/23 19:22 97.7 F 107 H 16 138/76 94 L 07/02/23 15:00 98.6 F 59 L 16 106/53 97 07/02/23 12:11 98.1 F 67 18 128/65 Intake and Output 07/02/23 07/03/23 07/03/23 22:59 06:59 14:59 Other: # Voids 0 # Bowel Movements 0 General appearance: The patient is sleeping and difficult to awake. Appears in no acute distress. HET: Head is normocephalic and atraumatic. Neck: Supple without lymphadenopathy. Trachea midline. Abdomen: Soft, obese, nondistended.. Neurological: Unable to evaluate. Patient is sleeping difficult to arouse. Results CBC & Chem 7: 07/03/23 06:01 07/03/23 06:01 Labs: Abnormal Lab Results - Last 24 Hours (Table) 07/02/23 07/02/23 07/02/23 Range/Units 14:40 14:40 14:40 RBC (4.40-5.60) X 10*6/uL Hgb (13.0-17.0) g/dL Hct (39.6-50.0) % MCHC (32.0-37.0) g/dL RDW (11.5-14.5) % MPV (9.5-12.2) FL Immature Gran # (0.00-0.04) X 10*3/uL Lymphocytes # (0.90-5.00) X 10*3/uL Eosinophils # (0.04-0.35) X 10*3/uL ESR 49 H (0-20) mm/Hr Sodium (135-145) mmol/L Chloride (96-109) mmol/L Creatinine (0.6-1.5) mg/dL Est GFR (CKD-EPI) (>=60) BUN/Creatinine Ratio (12.00-20.00) Ratio Troponin I 0.041 H* (0.000-0.034) ng/mL C-Reactive Protein 16.4 H (<1.0) mg/dL 07/03/23 07/03/23 Range/Units 06:01 06:01 RBC 2.80 L (4.40-5.60) X 10*6/uL Hgb 8.2 L (13.0-17.0) g/dL Hct 26.6 L (39.6-50.0) % MCHC 30.8 L (32.0-37.0) g/dL RDW 16.4 H (11.5-14.5) % MPV 9.1 L (9.5-12.2) FL Immature Gran # 0.14 H (0.00-0.04) X 10*3/uL Lymphocytes # 0.53 L (0.90-5.00) X 10*3/uL Eosinophils # 0.03 L (0.04-0.35) X 10*3/uL ESR (0-20) mm/Hr Sodium 133 L (135-145) mmol/L Chloride 95 L (96-109) mmol/L Creatinine 5.0 H (0.6-1.5) mg/dL Est GFR (CKD-EPI) 13 L (>=60) BUN/Creatinine Ratio 4.12 L (12.00-20.00) Ratio Troponin I (0.000-0.034) ng/mL C-Reactive Protein (<1.0) mg/dL Comments: Chest CT and abdomen without contrast reports no suspicious abnormality within the chest to account for hiccups. Small right and minimal left pleural effusion. Polycystic kidney changes with some atrophy. Nonspecific prominent fluid-filled small bowel loops within the right lower quadrant partially visualized. Recommend additional workup. Please see above discussion. CT abdomen and pelvis without contrast reports no suspicious obstruction or dilated loops of bowel. Transplant kidney with hydronephrosis and hydroureter. Polycystic kidneys with atrophy. Brain CT reports no acute intracranial abnormality seen. Assessment and Plan (1) Intractable hiccups Narrative/Plan: 53-year-old male who presented 4 days ago with complaints of intractable hiccups since quadricep repair surgery done on 06/24/2023. Patient was admitted to the hospital with multiple consultants and multiple workup. There is no findings francs ablation as to why he has hiccups. He has been started on Thorazine 25 mg 3 times daily. Patient was not fully evaluated as he was sleeping and would not wake up. Does not appear to have any hiccups at this time. There is really no further workup for hiccups. Can consider possible Valium or Xanax for anxiety. No further workup planned by gastroenterology. Current Visit: Yes Status: Acute Code(s): R06.6 - HICCOUGH SNOMED Code(s): 08748636 (2) A-fib Current Visit: No Status: Acute Code(s): I48.91 - UNSPECIFIED ATRIAL FIBRILLATION SNOMED Code(s): 19035491 (3) ESRD on dialysis Current Visit: No Status: Acute Code(s): N18.6 - END STAGE RENAL DISEASE; Z99.2 - DEPENDENCE ON RENAL DIALYSIS SNOMED Code(s): 515627709 Plan: 1. Continue symptomatic and supportive care 2. Continue Thorazine as ordered 3. Protonix 40 mg daily for GI prophylaxis 4. No plans on endoscopic evaluation or further workup from gastroenterology 5. Continue medical management per primary medical team Thank you for this consultation, we will sign off at this time. Dr. Kevon Calvillo I agree with the dictator's note, documented as a scribe by Beverley Ely.
--- NOTE | 2023-07-04 03:51 | P.PN ---
Subjective Progress Note Date: 07/03/23 Patient is a 51-year-old male with a past medical history of recent fall and left lateral abdominal wall large ecchymosis, chronic atrial fibrillation not on anticoagulation due to frequent falls, legally blind, ESRD on hemodialysis Friday and Friday, hypothyroidism, seizure disorder, history of renal transplant failure and other multiple medical problems presents to ER with complaints of intractable hiccups started after surgery and has not been improving. Patient presented back to the hospital. Patient is status post open repair of quadriceps tendon on left knee by orthopedic surgery on 06/24/2023. Patient does have left knee cast. Denies any complaints of pain. Undergoing hemodialysis as per schedule. No complaints of chest pain or shortness of breath. No nausea vomiting abdomi nal pain or diarrhea. No dysuria or hematuria. No dizziness or lightheadedness. Laboratory data showed WBC 10.3 hemoglobin 7.9 and platelets 197, sodium 134 potassium 3.8 chloride 99 BUN 33 and creatinine 5.98, blood sugar 101 albumin 3.0 06/30/2023 Patient seen and evaluated in follow-up today continues to report frequent hiccups with no relief reporting it is making him short of breath. Chest x-ray showing cardiomegaly with no acute process. Nephrology following patient is scheduled to undergo hemodialysis. Will adjust medications and add IV Pepcid along with Reglan scheduled. Patient is afebrile with no reported chest pain or palpitations. Patient is tolerating diet and denies nausea or vomiting. Patient continues on subcu heparin. Hemoglobin is 7.0. Will give 1 unit of PRBC. 07/01/2023 Patient is seen and evaluated in follow-up this morning continues to report persistent hiccups with no relief causing abdominal pain and shortness of breath. Patient with nephrology following recommending pulmonary consultation which is currently pending. Patient continues on Reglan and will increase to 10 mg 3 times daily as scheduled, baclofen, and supportive care. Plan is for hemo dialysis tomorrow. Will obtain CT abdomen pelvis as patient is reporting abdominal pain and persistent hiccups. Patient is afebrile with no reports of chest pain or palpitations. 07/02/2023 Patient is seen this morning continues to have persistent hiccups with minimal relief. Patient being followed by multiple consultations and was continued on baclofen, Reglan, Pepcid with no significant relief. Will consult GI and neurology as well as cardiology as troponin was found to be slightly elevated. ESR and sed rate ordered this time. Hemoglobin is stable and patient is receiving hemodialysis today. Patient with no reports of chest pain or palpitations. Will order 2D echo as well. Patient reporting some his cast on the left lower extremity from recent tendon rupture repair and will consult orthopedics. Speech also evaluated the patient with no difficulties or issues with swallowing. CT abdomen pelvis from yesterday with no acute abnormalities noted. 07/03/2023 Patient is seen in follow-up today currently sleeping per nursing staff patient has been more lethargic today. Concerned of possible Thorazine effect and will discontinue. Continue with Reglan at a lower dose as patient continues to have hiccups. Multiple medical consultations following and GI has been consulted. N o plans of endoscopic intervention at this time. Neurology has been consulted and pending as well. Patient reported to have a fall early this morning landing on his butt although reported to the nursing staff he struck his head on the table and having head pain. CT brain ordered with no acute findings noted. Patient is afebrile with no reported chest pain. Patient reports shortness of breath with persistent hiccups. Orthopedics following as well as patient is recently status post left quadriceps tendon rupture repair and continues with a cast of the entire left lower extremity. Patient had been reporting to staff on previous shift of some discomfort and pain on the back of the cast. Review of systems: Constitutional: reports of fatigue, no fever, or chills Cardiovascular: No reports of chest pain or palpitations Respiratory: reports of shortness of breath from continuous hiccups GI: No reports of nausea, vomiting, or diarrhea, reports continued hiccups causing abdominal pain : No reports of dysuria or retention Neurovascular: No reports of weakness or numbness, reports left leg pain underneath the cast that has resolved All medications have been reviewed PHYSICAL EXAMINATION: Patient is lying in the bed , asleep and lethargic although somewhat arousable, alert and oriented x 3, well-developed, well-nourished, legally blind.. HEENT: Normocephalic. Neck is supple. Pupils reactive. Nostrils clear. Oral cavity is moist. Neck reveals no JVD, carotid bruits, or thyromegaly. CHEST EXAMINATION: Trachea is central. Symmetrical expansion. Lung maher clear to auscultation and percussion. Hiccups on exam noted while sleeping CARDIAC: S1, S2 are muffled ABDOMEN: Soft. Obese. Bowel sounds normal. No organomegaly. No abdominal bruits. Extremities: reveal no edema. No clubbing or cyanosis Neurologically awake, alert, oriented x3 with well-coordinated movements. No focal deficits noted Skin: No rash or skin lesions. Psychiatric: Cooperative. Non-suicidal Musculoskeletal: No joint swelling or deformity. Left lower extremity cast in place Assessment: Intractable hiccups Status post open repair, quadriceps tendon of the left knee on 06/24/23 Recent history of fall with large ecchymosis over the left lateral abdominal wall and hypovolemic shock and also noted to have left knee swelling and MRI showed rupture of quadriceps tendon along with moderate-sized effusion within the joint. Patient was in the hospital from 05/31/2023 to 06/06/2023. Mechanical fall landing on buttock and striking head on the side table, CT negative for acute findings Generalized weakness and frequent falls related to legal blindness and comorbidities. ESRD on hemodialysis Friday and Friday Anemia of chronic disease with hemoglobin around 9 at baseline, hemoglobin improved status post 1 unit of PRBC History of renal transplant in 1998 Chronic atrial fibrillation not on anticoagulation due to frequent falls and anemia Severely calcified aortic valve, moderate mitral calcification and mild to moderate MR Legally blind Hypothyroidism DVT prophylaxis with heparin subcu while in the hospital GI prophylaxis with PPI Full code Plan: Patient being followed by multiple medical complications. Patient continues to report hiccups continuously causing shortness of breath and abdominal pain. Thorazine 3 times daily although patient was more lethargic and will discontinue Thorazine. Continue Reglan at 5 mg every [address] abdomen pelvis ordered for continued abdominal pain and persistent hiccups although no abnormalities noted to explain Hemoglobin improved status post 1 unit of PRBC, no active bleeding noted and hemoglobin is above 8 Nephrology following with hemodialysis, patient receiving dialysis Friday Patient had an unwitnessed fall landing on his buttock although reported he struck his head on the side table having head pain. CT of the brain was negative for acute findings Pulmonary, neurology, GI, and orthopedics consulted. Orthopedics consulted as patient is reporting left lower extremity leg pain where his cast is from previous quadriceps tendon repair last week. Orthopedics evaluated with no plans of further intervention and patient denies any further pain at this time. Continue with telemonitoring. Continue with amiodarone and metoprolol and other home medications including levothyroxine and prednisone 10 mg daily. Patient is also on midodrine as needed. Also on Florinef. Not on anticoagulation due to frequent falls and legally blind. Continue subcu heparin while in the hospital Due to multiple complex medical issues, prognosis is guarded The impression and plan of care has been dictated by Donna Taylor, Nurse Practitioner as directed. Dr. Emeterio MD I have performed a history and examination and MDM of this patient, discussed the same with the dictator, and agree with the dictator's assessment and plan as written ,documented as a scribe. Based on total visit time, I have performed more than 50% of the visit. Objective - Vital Signs Vital signs: Vital Signs Temp 97.9 F 07/03/23 12:57 Pulse 62 07/03/23 12:57 Resp 16 07/03/23 12:57 BP 131/62 07/03/23 12:57 Pulse Ox 96 07/03/23 12:57 FiO2 Intake & Output 07/02/23 07/03/23 07/03/23 18:59 06:59 18:59 Intake Total 400 Output Total 1500 Balance -1100 Intake: Hemodialysis 400 Output: Hemodialysis 1500 Other: # Voids 1 0 # Bowel Movements 0 - Labs CBC & Chem 7: 07/03/23 06:01 07/03/23 06:01 Labs: Abnormal Lab Results - Last 24 Hours (Table) 07/02/23 07/02/23 07/02/23 Range/Units 14:40 14:40 14:40 RBC (4.40-5.60) X 10*6/uL Hgb (13.0-17.0) g/dL Hct (39.6-50.0) % MCHC (32.0-37.0) g/dL RDW (11.5-14.5) % MPV (9.5-12.2) FL Immature Gran # (0.00-0.04) X 10*3/uL Lymphocytes # (0.90-5.00) X 10*3/uL Eosinophils # (0.04-0.35) X 10*3/uL ESR 49 H (0-20) mm/Hr Sodium (135-145) mmol/L Chloride (96-109) mmol/L Creatinine (0.6-1.5) mg/dL Est GFR (CKD-EPI) (>=60) BUN/Creatinine Ratio (12.00-20.00) Ratio Troponin I 0.041 H* (0.000-0.034) ng/mL C-Reactive Protein 16.4 H (<1.0) mg/dL 07/03/23 07/03/23 Range/Units 06:01 06:01 RBC 2.80 L (4.40-5.60) X 10*6/uL Hgb 8.2 L (13.0-17.0) g/dL Hct 26.6 L (39.6-50.0) % MCHC 30.8 L (32.0-37.0) g/dL RDW 16.4 H (11.5-14.5) % MPV 9.1 L (9.5-12.2) FL Immature Gran # 0.14 H (0.00-0.04) X 10*3/uL Lymphocytes # 0.53 L (0.90-5.00) X 10*3/uL Eosinophils # 0.03 L (0.04-0.35) X 10*3/uL ESR (0-20) mm/Hr Sodium 133 L (135-145) mmol/L Chloride 95 L (96-109) mmol/L Creatinine 5.0 H (0.6-1.5) mg/dL Est GFR (CKD-EPI) 13 L (>=60) BUN/Creatinine Ratio 4.12 L (12.00-20.00) Ratio Troponin I (0.000-0.034) ng/mL C-Reactive Protein (<1.0) mg/dL
[2023-07-04] MEDS: FAMOTIDINE 20 MG/2 ML VIAL IVP SCH (08:15)
--- NOTE | 2023-07-04 08:27 | P.CONS ---
History of Present Illness - Reason for Consult Consult date: 07/04/23 Hiccups Requesting physician: Rob Storm - Chief Complaint hiccups - History of Present Illness This 53-year-old male who we tried to see yesterday but patient was sleeping and not arousable. Apparently patient had a history of a recent fall and a left lateral abdominal wall contusion, chronic atrial fibrillation due to frequent falls, legally blind, end-stage renal disease on hemodialysis, hypothyroidism, seizure disorder, history of renal transplant failure and multiple other comorbidities came to the emergency department on 06/29/2023 with complaints of intractable hiccups following his surgery. Patient had a open repair of his quadriceps tendon of the left knee by orthopedics on 06/24/2023. Gastroenterology was consulted for intractable hiccups. Patient has been here for 4 days with multiple consultants on. He is currently on Thorazine. Patient states hiccups are improved. He states that he feels just a general pressure in his chest and abdomen. He denies any nausea or vomiting. He has had multiple imaging without any acute findings. Review of Systems REVIEW OF SYSTEMS: CARDIOPULMONARY: No chest pain or shortness of breath. Gastrointestinal: Hiccups, now improved. States feels like he has pressure in his abdomen. No nausea or vomiting. No hematemesis, coffee-ground emesis. No rectal bleeding, or melena. GENITOURINARY: No dysuria or hematuria. MUSCULOSKELETAL: Recent orthopedic surgery. SKIN: No rashes. No jaundice. ENDOCRINE: No chills, fevers. No excessive weight gain or loss. End-stage renal disease on hemodialysis. PSYCHIATRIC: Unremarkable. NEUROLOGY: No change in mental status. Denies dizziness, headache. ENT: Legally blind. CONSTITUTIONAL: No recent weight loss. No fever, chills, night sweats. Past Medical History Past Medical History: Atrial Fibrillation, Dialysis, Eye Disorder, GERD/Reflux, Renal Disease, Seizure Disorder, Thyroid Disorder Additional Past Medical History / Comment(s): Recent fall with quadriceps tendon rupture. Gout. Bruises easily. 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 Kidney transplant in 1998. Hemodialysis [facility] at home. Hx anemia with blood transfusion. 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 Hx diverticulitis. Hx Shingles 02/2021. Hx approximately 7 grand mal seizures in 2021 when on dialysis, unknown etiology, none since. Has nonactive left arm dialysis graft and functioning right groin dialysis port. Frequent headaches. Low blood pressure at times. History of Any Multi-Drug Resistant Organisms: None Reported Additional Past Surgical History / Comment(s): Fistula placement, thyroidectomy, kidney transplant, toenails removed. Past Anesthesia/Blood Transfusion Reactions: No Reported Reaction Additional Past Anesthesia/Blood Transfusion Reaction / Comm: Blood transfusion - had no issues. Past Psychological History: No Psychological Hx Reported Additional Psychological History / Comment(s): Pt resides with his mother who is his caregiver. Pt ambulates without device/he memorizes where furniture is placed. Mother performs hemodialysis 4 days a week. 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 No home care. Smoking Status: Never smoker Past Alcohol Use History: None Reported Past Drug Use History: None Reported - Past Family History Mother Family Medical History: Fibromyalgia, Osteoarthritis (OA) Additional Family Medical History / Comment(s): Lupus Family Family Medical History: No Reported History Additional Family Medical History / Comment(s): ETOH abuse Medications and Allergies Home Medications Medication Instructions Recorded Confirmed Type Levothyroxine Sodium [Synthroid] 50 mcg PO DAILY 12/18/17 06/29/23 History Montelukast [Singulair] 10 mg PO HS 12/18/17 06/29/23 History predniSONE 10 mg PO DAILY 04/25/21 06/29/23 History Atorvastatin [Lipitor] 20 mg PO DAILY 10/15/22 06/29/23 History Midodrine HCl [ProAmatine] 10 mg PO QID PRN 10/15/22 06/29/23 History calcitrioL 0.25 mcg PO SUTUWETHSA 10/15/22 06/29/23 History calcitrioL 0.5 mcg PO MOFR 10/15/22 06/29/23 History Omeprazole [PriLOSEC] 20 mg PO PC-SUPPER 04/25/23 06/29/23 History methocarbamoL [Robaxin-750] 1,500 mg PO TID PRN 7 Days #42 tab 05/28/23 06/29/23 Rx Amiodarone [Cordarone] 200 mg PO BID #60 tab 06/06/23 06/29/23 Rx Metoprolol Tartrate [Lopressor] 25 mg PO BID #60 tab 06/06/23 06/29/23 Rx Simethicone Chew [Mylicon Chew] 40 mg PO QID PRN #30 tab 06/06/23 06/29/23 Rx Acetaminophen Tab [Tylenol] 650 mg PO Q4HR PRN 06/23/23 06/29/23 History Fludrocortisone [Florinef] 0.1 mg PO DAILY 06/23/23 06/29/23 History allopurinoL 100 mg PO DAILY 06/23/23 06/29/23 History HYDROcodone/APAP 5-325MG [[place] 1 - 2 tab PO Q6HR PRN #32 tab 06/25/23 06/29/23 Rx 5-325] Allergies Allergy/AdvReac Type Severity Reaction Status Date / Time adhesive tape Allergy Itching Verified 06/29/23 16:07 codeine Allergy Rash/Hives Verified 06/29/23 16:07 cyclobenzaprine Allergy Rash/Hives Verified 06/29/23 16:07 [From Flexeril] diphenhydramine Allergy Anaphylaxis Verified 06/29/23 16:07 [From Benadryl] hydromorphone [From Dilaudid] Allergy Rash/Hives Verified 06/29/23 16:07 hydroxyzine Allergy Anaphylaxis Verified 06/29/23 16:07 Iodinated Contrast Media Allergy Anaphylaxis Verified 06/29/23 16:07 [Iodinated Contrast- Oral and IV Dye] pantoprazole [From Protonix] Allergy Anaphylaxis Verified 06/29/23 16:07 Penicillins Allergy Rash/Hives Verified 06/29/23 16:07 potassium chloride Allergy Rash/Hives Verified 06/29/23 16:07 pregabalin [From Lyrica] Allergy Anaphylaxis Verified 06/29/23 16:07 sevelamer Allergy Rash/Hives Verified 06/29/23 16:07 warfarin [From Coumadin] Allergy Anaphylaxis Verified 06/29/23 16:07 acetaminophen [From Vicodin] AdvReac Nausea & Verified 06/29/23 16:07 Vomiting aripiprazole [From Abilify] AdvReac Abdominal Verified 06/29/23 16:07 Pain aztreonam AdvReac Unknown Verified 06/29/23 16:07 calcitriol AdvReac Unknown Verified 06/29/23 16:07 cefadroxil AdvReac Unknown Verified 06/29/23 16:07 enalapril AdvReac Unknown Verified 06/29/23 16:07 hydrocodone [From Vicodin] AdvReac Nausea & Verified 06/29/23 16:07 Vomiting Influenza Virus Vaccines AdvReac Unknown Verified 06/29/23 16:07 levofloxacin [From Levaquin] AdvReac Abdominal Verified 06/29/23 16:07 Pain meloxicam [From Mobic] AdvReac Abdominal Verified 06/29/23 16:07 Pain morphine AdvReac Unknown Verified 06/29/23 16:07 propoxyphene AdvReac Unknown Verified 06/29/23 16:07 Sulfa (Sulfonamide AdvReac Vomiting Verified 06/29/23 16:07 Antibiotics) tramadol AdvReac no Verified 06/29/23 16:07 allergy, just does not work for him Physical Exam Vitals: Vital Signs Temp Pulse Resp BP Pulse Ox 07/04/23 04:58 58 L 07/04/23 03:03 91 07/04/23 01:37 57 L 07/04/23 01:13 98.2 F 118 H 16 152/83 99 07/03/23 21:18 53 L 07/03/23 19:30 98.7 F 56 L 16 132/75 97 07/03/23 14:00 98.2 F 58 L 17 149/82 94 L 07/03/23 12:57 97.9 F 62 16 131/62 96 07/03/23 08:00 97.5 F L 63 18 152/82 100 Intake and Output 07/03/23 07/03/23 07/04/23 14:59 22:59 06:59 Other: # Voids 1 0 General appearance: The patient is alert, oriented, appears in no acute distress. HET: Head is normocephalic and atraumatic. Conjunctiva pink. Sclera anicteric. Neck: Supple without lymphadenopathy. Trachea midline. Heart: Regular. Lungs: Equal expansion, normal respiratory effort. Abdomen: Soft, nontender, nondistended. Skin: No rashes. No jaundice. Extremities: Normal skin color and turgor. Left lower extremity cast. Neurological: No focal deficits. Alert and oriented x3. Results CBC & Chem 7: 07/03/23 06:01 07/03/23 06:01 Labs: Abnormal Lab Results - Last 24 Hours (Table) 07/03/23 07/03/23 Range/Units 06:01 06:01 RBC 2.80 L (4.40-5.60) X 10*6/uL Hgb 8.2 L (13.0-17.0) g/dL Hct 26.6 L (39.6-50.0) % MCHC 30.8 L (32.0-37.0) g/dL RDW 16.4 H (11.5-14.5) % MPV 9.1 L (9.5-12.2) FL Immature Gran # 0.14 H (0.00-0.04) X 10*3/uL Lymphocytes # 0.53 L (0.90-5.00) X 10*3/uL Eosinophils # 0.03 L (0.04-0.35) X 10*3/uL Sodium 133 L (135-145) mmol/L Chloride 95 L (96-109) mmol/L Creatinine 5.0 H (0.6-1.5) mg/dL Est GFR (CKD-EPI) 13 L (>=60) BUN/Creatinine Ratio 4.12 L (12.00-20.00) Ratio Comments: Chest CT and abdomen without contrast reports no suspicious abnormality within the chest to account for hiccups. Small right and minimal left pleural effusion. Polycystic kidney changes with some atrophy. Nonspecific prominent fluid-filled small bowel loops within the right lower quadrant partially visualized. Recommend additional workup. Please see above discussion. CT abdomen and pelvis without contrast reports no suspicious obstruction or dilated loops of bowel. Transplant kidney with hydronephrosis and hydroureter. Polycystic kidneys with atrophy. Brain CT reports no acute intracranial abnormality seen. Assessment and Plan (1) Intractable hiccups Narrative/Plan: 53-year-old male who presented 4 days ago with complaints of intractable hiccups since quadricep repair surgery done on 06/24/2023. Patient was admitted to the hospital with multiple consultants and multiple workup. There is no findings francs ablation as to why he has hiccups. He has been started on Thorazine 25 mg 3 times daily. Patient was not fully evaluated as he was sleeping and would not wake up. Does not appear to have any hiccups at this time. There is really no further workup for hiccups. Can consider possible Valium or Xanax for anxiety. No further workup planned by gastroenterology. Current Visit: Yes Status: Acute Code(s): R06.6 - HICCOUGH SNOMED Code(s): 95924732 (2) A-fib Current Visit: No Status: Acute Code(s): I48.91 - UNSPECIFIED ATRIAL FIBRILLATION SNOMED Code(s): 68145177 (3) ESRD on dialysis Current Visit: No Status: Acute Code(s): N18.6 - END STAGE RENAL DISEASE; Z99.2 - DEPENDENCE ON RENAL DIALYSIS SNOMED Code(s): 309766478 Plan: 1. Continue symptomatic and supportive care 2. Continue Thorazine as ordered 3. Would recommend Protonix however patient is allergic. Will increase Pepcid from 10 mg twice a day to 20 mg twice a day 4. No plans on endoscopic evaluation or further workup from gastroenterology 5. Continue medical management per primary medical team Thank you for this consultation, we will sign off at this time. Dr. Kevon Calvillo I agree with the dictator's note, documented as a scribe by Beverley Ely.
--- NOTE | 2023-07-04 10:18 | P.PN ---
Subjective Progress Note Date: 07/04/23 Reason for Consult (text): Elevated troponin History of present illness: History of present illness: This is a 53-year-old male patient of Dr. 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 We have been asked to evaluate the patient for elevated troponin. Patient initially presented to the hospital on 06/28 for hiccuping. He also has a recent ruptured quadricep tendon for which she is in a long-leg cast on the left. Patient has been seen by multiple consultants including nephrology, pulmonary medicine and GI has been consulted as well. Patient denies having any chest pain. Troponin was done yesterday which came back at 0.041. In the past patient has had chronically elevated troponins running between 0.07 and 0.05. EKG sinus rhythm with no acute ST-T wave changes. CT of the abdomen pelvis revealed no suspicious abnormality to account for hiccups. WBC 5.4, hemoglobin 8.2, platelet count 201. Sodium 133, potassium 4, creatinine 5. C-reactive protein 16.4. Troponin 0.041. Home cardiac medications: Amiodarone 200 mg twice daily, Lipitor 20 mg daily, Lopressor 25 mg twice daily, patient is also on Florinef and midodrine and levothyroxine. Limited echocardiogram performed on 07/02/2023 revealed no pericardial effusion. EF 60 to 65%. Echocardiogram performed 04/25/2023 revealed EF of 55 to 60%. Mild to moderate mitral regurgitation. Mild aortic regurgitation. Mild tricuspid regurgitation. Lexiscan stress test performed 05/14/2023 was negative for reversible ischemia. 07/03 Patient denies any new concerns today. He does not have hiccups. Blood pres sure 148/80, heart rate 58, pulse ox 98% on room air. Physical examination: Gen: This is a 53-year-old male in no acute distress VS: reviewed HEENT: Head is atraumatic, normocephalic. Pupils equal, round. Sclerae is anicteric. NECK: Supple. No JVD. LUNGS: Clear to auscultation. No wheezes or rhonchi. No intercostal retractions. HEART: Regular rate and rhythm. Systolic ejection murmur. ABDOMEN: Soft No tenderness. EXTREMITIES: Left-sided long-leg cast in place. No calf tenderness. NEUROLOGICAL: Patient is awake, alert and oriented x3. Assessment: Chronically elevated troponin secondary to end-stage renal disease. No evidence of acute coronary syndrome or myocardial infarction. No complaints of chest pain End-stage renal disease on hemodialysis Hiccups Gastroesophageal reflux disease Paroxysmal atrial fibrillation currently in sinus rhythm History of moderate aortic stenosis Plan: Continue patient's home cardiac medications No further cardiac workup is warranted Patient may follow-up with Dr. Serrano in 1 to 2 weeks. Cardiology will sign off this case and follow on an as-needed basis. Please reconsult for any new concerns. Nurse practitioner note has been reviewed, I agree with documented findings and plan of care. Patient was seen and examined. Objective - Vital Signs Vital signs: Vital Signs Temp 98.1 F 07/04/23 07:00 Pulse 58 L 07/04/23 07:00 Resp 17 07/04/23 07:00 BP 148/80 07/04/23 07:00 Pulse Ox 98 07/04/23 07:00 FiO2 Intake & Output 07/03/23 07/04/23 07/04/23 18:59 06:59 18:59 Other: # Voids 1 0 - Labs CBC & Chem 7: 07/03/23 06:01 07/03/23 06:01 Labs: Abnormal Lab Results - Last 24 Hours (Table) 07/03/23 07/03/23 Range/Units 06:01 06:01 RBC 2.80 L (4.40-5.60) X 10*6/uL Hgb 8.2 L (13.0-17.0) g/dL Hct 26.6 L (39.6-50.0) % MCHC 30.8 L (32.0-37.0) g/dL RDW 16.4 H (11.5-14.5) % MPV 9.1 L (9.5-12.2) FL Immature Gran # 0.14 H (0.00-0.04) X 10*3/uL Lymphocytes # 0.53 L (0.90-5.00) X 10*3/uL Eosinophils # 0.03 L (0.04-0.35) X 10*3/uL Sodium 133 L (135-145) mmol/L Chloride 95 L (96-109) mmol/L Creatinine 5.0 H (0.6-1.5) mg/dL Est GFR (CKD-EPI) 13 L (>=60) BUN/Creatinine Ratio 4.12 L (12.00-20.00) Ratio
--- NOTE | 2023-07-04 10:21 | P.CNNES ---
History of Present Illness Consult date: 07/03/23 Requesting physician: Donna Taylor Reason for Consult: Intractable hiccups History of Present Illness: Patient is a 53-year-old right-handed male with history of ESRD, on peritoneal dialysis, legal blindness came to the hospital on 06/29/2023 for intractable hiccups. Patient recently underwent complex surgery for tendon rupture of his left leg on 06/24/2023. Patient states that he woke up from surgery with persistent hiccups. As a result he is having difficulty feeding himself. Patient's mother was also present, who also mentions that patient developed hiccups after his kidney transplant in 1998, that lasted for about 2 weeks and then resolved with medication, that they do not know. Patient's blood test shows normal white count, hemoglobin 8.2, platelets 201. Sodium 133 potassium 4.0, BUN 20, creatinine 5.0. Troponin is 0.041. CRP 16.4, ESR 49. CT head revealed no acute intracranial process. Patient has history of end-stage renal disease since age 15. He underwent kidney transplant which did not work. For the last 2 years patient's mother has been doing peritoneal dialysis. He is also legally blind. About 2 months ago, he fell and twisted his ankle and ruptured multiple tendons. After the swelling resolved, he underwent tendon surgery on 06/24/2023. Patient was started on baclofen, which did not work, but more recently was started on Thorazine 25 mg 3 times daily scheduled. He received it yesterday at 3:28 PM, 8:29 PM last night and 8:20 AM this morning. Apparently it worked very well for the hiccups, but he has become very groggy from the medication. He fell last night when trying to go to the bathroom, as he slipped and fell. Per patient's mother, he has been nonresponsive cannot last picker arm, although at present he is much improved, as per examination below Patient had a CT scan of the chest abdomen pelvis, which revealed no suspicious abnormality within the chest to account for hiccups. Small right and minimal left pleural effusion. Polycystic kidney changes with some atrophy. Nonspecific prominent fluid filled small bowel loops within the right lower quadrant, partially visualized. Recommend additional workup. CT of the abdomen pelvis showed no suspicious obstruction or dilated loops of bowel. Transplant kidney with hydronephrosis and hydroureter. Polycystic kidneys with atrophy. Review of Systems All pertinent positive negative mentioned in HPI. Past Medical History Past Medical History: Atrial Fibrillation, Dialysis, Eye Disorder, GERD/Reflux, Renal Disease, Seizure Disorder, Thyroid Disorder Additional Past Medical History / Comment(s): Recent fall with quadriceps tendon rupture. Gout. Bruises easily. 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 Kidney transplant in 1998. Hemodialysis [facility] at home. Hx anemia with blood transfusion. 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 Hx diverticulitis. Hx Shingles 02/2021. Hx approximately 7 grand mal seizures in 2021 when on dialysis, unknown etiology, none since. Has nonactive left arm dialysis graft and functioning right groin dialysis port. Frequent headaches. Low blood pressure at times. History of Any Multi-Drug Resistant Organisms: None Reported Additional Past Surgical History / Comment(s): Fistula placement, thyroidectomy, kidney transplant, toenails removed. Past Anesthesia/Blood Transfusion Reactions: No Reported Reaction Additional Past Anesthesia/Blood Transfusion Reaction / Comment(s): Blood transfusion - had no issues. Past Psychological History: No Psychological Hx Reported Additional Psychological History / Comment(s): Pt resides with his mother who is his caregiver. Pt ambulates without device/he memorizes where furniture is placed. Mother performs hemodialysis 4 days a week. She is the driver supervisor. No home care. Smoking Status: Never smoker Past Alcohol Use History: None Reported Past Drug Use History: None Reported - Past Family History Mother Family Medical History: Fibromyalgia, Osteoarthritis (OA) Additional Family Medical History / Comment(s): Lupus Family Family Medical History: No Reported History Additional Family Medical History / Comment(s): ETOH abuse Medications and Allergies Home Medications Medication Instructions Recorded Confirmed Type Levothyroxine Sodium [Synthroid] 50 mcg PO DAILY 12/18/17 06/29/23 History Montelukast [Singulair] 10 mg PO HS 12/18/17 06/29/23 History predniSONE 10 mg PO DAILY 04/25/21 06/29/23 History Atorvastatin [Lipitor] 20 mg PO DAILY 10/15/22 06/29/23 History Midodrine HCl [ProAmatine] 10 mg PO QID PRN 10/15/22 06/29/23 History calcitrioL 0.25 mcg PO SUTUWETHSA 10/15/22 06/29/23 History calcitrioL 0.5 mcg PO MOFR 10/15/22 06/29/23 History Omeprazole [PriLOSEC] 20 mg PO PC-SUPPER 04/25/23 06/29/23 History methocarbamoL [Robaxin-750] 1,500 mg PO TID PRN 7 Days #42 tab 05/28/23 06/29/23 Rx Amiodarone [Cordarone] 200 mg PO BID #60 tab 06/06/23 06/29/23 Rx Metoprolol Tartrate [Lopressor] 25 mg PO BID #60 tab 06/06/23 06/29/23 Rx Simethicone Chew [Mylicon Chew] 40 mg PO QID PRN #30 tab 06/06/23 06/29/23 Rx Acetaminophen Tab [Tylenol] 650 mg PO Q4HR PRN 06/23/23 06/29/23 History Fludrocortisone [Florinef] 0.1 mg PO DAILY 06/23/23 06/29/23 History allopurinoL 100 mg PO DAILY 06/23/23 06/29/23 History HYDROcodone/APAP 5-325MG [[place] 1 - 2 tab PO Q6HR PRN #32 tab 06/25/23 06/29/23 Rx 5-325] Allergies Allergy/AdvReac Type Severity Reaction Status Date / Time adhesive tape Allergy Itching Verified 06/29/23 16:07 codeine Allergy Rash/Hives Verified 06/29/23 16:07 cyclobenzaprine Allergy Rash/Hives Verified 06/29/23 16:07 [From Flexeril] diphenhydramine Allergy Anaphylaxis Verified 06/29/23 16:07 [From Benadryl] hydromorphone [From Dilaudid] Allergy Rash/Hives Verified 06/29/23 16:07 hydroxyzine Allergy Anaphylaxis Verified 06/29/23 16:07 Iodinated Contrast Media Allergy Anaphylaxis Verified 06/29/23 16:07 [Iodinated Contrast- Oral and IV Dye] pantoprazole [From Protonix] Allergy Anaphylaxis Verified 06/29/23 16:07 Penicillins Allergy Rash/Hives Verified 06/29/23 16:07 potassium chloride Allergy Rash/Hives Verified 06/29/23 16:07 pregabalin [From Lyrica] Allergy Anaphylaxis Verified 06/29/23 16:07 sevelamer Allergy Rash/Hives Verified 06/29/23 16:07 warfarin [From Coumadin] Allergy Anaphylaxis Verified 06/29/23 16:07 acetaminophen [From Vicodin] AdvReac Nausea & Verified 06/29/23 16:07 Vomiting aripiprazole [From Abilify] AdvReac Abdominal Verified 06/29/23 16:07 Pain aztreonam AdvReac Unknown Verified 06/29/23 16:07 calcitriol AdvReac Unknown Verified 06/29/23 16:07 cefadroxil AdvReac Unknown Verified 06/29/23 16:07 enalapril AdvReac Unknown Verified 06/29/23 16:07 hydrocodone [From Vicodin] AdvReac Nausea & Verified 06/29/23 16:07 Vomiting Influenza Virus Vaccines AdvReac Unknown Verified 06/29/23 16:07 levofloxacin [From Levaquin] AdvReac Abdominal Verified 06/29/23 16:07 Pain meloxicam [From Mobic] AdvReac Abdominal Verified 06/29/23 16:07 Pain morphine AdvReac Unknown Verified 06/29/23 16:07 propoxyphene AdvReac Unknown Verified 06/29/23 16:07 Sulfa (Sulfonamide AdvReac Vomiting Verified 06/29/23 16:07 Antibiotics) tramadol AdvReac no Verified 06/29/23 16:07 allergy, just does not work for him Physical Examination - Vital Signs Vital Signs: Vital Signs Temp Pulse Resp BP Pulse Ox 07/03/23 08:00 97.5 F L 63 18 152/82 100 07/03/23 01:34 97.8 F 106 H 16 148/80 95 07/02/23 19:22 97.7 F 107 H 16 138/76 94 L 07/02/23 15:00 98.6 F 59 L 16 106/53 97 Intake and Output 07/02/23 07/03/23 07/03/23 22:59 06:59 14:59 Other: # Voids 0 # Bowel Movements 0 Patient is a middle-aged male, appears older than his stated age. Patient is slightly groggy, but then wakes up and is alert awake oriented to time place and person. He knows it is June 2023 and that he is in "[facility] in [facility]" in [facility]. He said the current president was Danica. But then on prompting, he was able to tell the current president Mr. Lopez. Speech and language functions are normal. Patient can name and repeat very well. No aphasia or dysarthria. Attention, concentration and fund of knowledge is adequate. On cranial nerve examination, pupils are equal, round and reacting to light. Patient is legally blind, and has no vision in either eye. Extraocular muscles were difficult to assess. On asking him to look right and left, patient was doing better with his vision to the left as compared to the right. Face is symmetric, tongue protrudes to the midline. Palatal elevation and sensation normal, hearing and shoulder shrug normal, facial sensation normal. On muscle strength testing, there is no pronator drift. The strength is (right/left) deltoid 5/5, biceps 5/5, triceps 4 4-/5, heat treat inspector 5/5. In the lower limbs, his left leg is in the cast entirely. On the right side ankle dorsiflexion is 5, hip flexion 5-. Deep tendon reflexes are very hypoactive and plantar is flat on the right. Sensory to touch is equal with no neglect on double simultaneous stimulation. Cerebellar function showed no ataxia for [id number] testing. No dysdiadochokinesia. No ataxia for [id number] testing on either side. Tone and bulk of muscles normal. Gait deferred.. On general examination, there is no carotid bruit or murmur, S1-S2 audible. Chest is clear on consultation. Abdomen is soft nontender. No organomegaly, bowel sounds present. Peripheral pulses are present. Patient has 2+ to 3 peripheral edema. He has bruises in the arms. Results - Laboratory Findings CBC and BMP: 07/03/23 06:01 07/03/23 06:01 Abnormal Lab Findings: Abnormal Labs 06/29/23 06/29/23 06/30/23 12:28 12:28 06:44 RBC 2.52 L 2.37 L Hgb 7.9 L D 7.0 L Hct 24.1 L 23.5 L MCV 99.2 H MCHC 29.8 L RDW 16.0 H 15.9 H MPV 9.2 L Immature Gran # 0.20 H Lymphocytes # Eosinophils # ESR Sodium 134 L Chloride Anion Gap BUN 33 H Creatinine 5.98 H Est GFR (CKD-EPI) BUN/Creatinine Ratio Glucose 101 H Troponin I C-Reactive Protein Total Protein 5.3 L Albumin 3.0 L Crossmatch 06/30/23 06/30/23 07/01/23 06:44 21:10 16:03 RBC 2.69 L Hgb 8.0 L Hct 25.9 L MCV MCHC 30.9 L RDW 17.5 H MPV 9.3 L Immature Gran # 0.13 H Lymphocytes # 0.37 L Eosinophils # 0.01 L ESR Sodium Chloride 94 L Anion Gap 19.80 H BUN 41.4 H Creatinine 7.8 A* Est GFR (CKD-EPI) 8 L BUN/Creatinine Ratio 5.31 L Glucose Troponin I C-Reactive Protein Total Protein Albumin Crossmatch See Detail 07/01/23 07/02/23 07/02/23 16:03 14:40 14:40 RBC Hgb Hct MCV MCHC RDW MPV Immature Gran # Lymphocytes # Eosinophils # ESR 49 H Sodium 134 L Chloride Anion Gap 12.60 H BUN 27.1 H Creatinine 5.6 H Est GFR (CKD-EPI) 11 L BUN/Creatinine Ratio 4.84 L Glucose 144 H Troponin I 0.041 H* C-Reactive Protein Total Protein Albumin Crossmatch 07/02/23 07/03/23 07/03/23 14:40 06:01 06:01 RBC 2.80 L Hgb 8.2 L Hct 26.6 L MCV MCHC 30.8 L RDW 16.4 H MPV 9.1 L Immature Gran # 0.14 H Lymphocytes # 0.53 L Eosinophils # 0.03 L ESR Sodium 133 L Chloride 95 L Anion Gap BUN Creatinine 5.0 H Est GFR (CKD-EPI) 13 L BUN/Creatinine Ratio 4.12 L Glucose Troponin I C-Reactive Protein 16.4 H Total Protein Albumin Crossmatch Assessment and Plan Assessment: * New onset hiccups since left leg tendon repair surgery 06/24/2023, unclear cause. Possibly related to recent postoperative state. He had similar hiccups after his kidney transplant as well, that lasted for 2 weeks and then went away. * Atrial fibrillation * End-stage renal disease, on peritoneal dialysis * Status post failed kidney transplant in 1998 * Seizure disorder * Recent fall with quadriceps tendon rupture. * Legal blindness Plan: * It appears Thorazine at dose of 25 mg 3 times daily helped him with the hiccups, but he became very drowsy. Consider decreasing the dose to half tablet twice daily as needed. * Patient has tried baclofen, but uncertain for how long. * We will check with the primary team about the medication that has been tried. * Consider adding low-dose Neurontin 100 mg twice daily. * Hopefully the hiccups will resolve in a few days, like happened with the pre vious surgery. * Neurology will follow clinically. Other medical management as per IM and other specialties. Thank you for the consult.
--- NOTE | 2023-07-04 11:08 | P.PN ---
Subjective patient is seen for follow-up for end-stage renal disease. seen on hemodialysis today. no more hiccups. Patient feels well and wants to go home post dialysis. 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 End-stage renal disease maintained on home hemodialysis on Friday, Friday, Friday and Friday schedule via femoral permacath. 2. Intractable hiccups , improving 3. Status post open repair of quadriceps tendon of the left knee on 06/24/2023 4. Recent history of fall and large ecchymosis over the abdominal wall and on the sides 5. CK D mineral bone disorder Plan: hemodialysis today okay to discharge from nephrology standpoint post hemodialysis today.
[2023-07-04] MEDS: ONDANSETRON 4 MG/2 ML VIAL IVP STA (11:20)
[2023-07-04] MEDS ORDERED: ONDANSETRON 4 MG/2 ML VIAL IVP PRN (12:26)
[2023-07-04] MEDS: LORazepam 2 MG/ML INJ IV STA (12:35)
[2023-07-04] MEDS: GABAPENTIN 100 MG CAP PO SCH (12:35)
--- NOTE | 2023-07-04 12:57 | P.PN ---
Subjective Progress Note Date: 07/04/23 This is a pleasant 53-year-old male patient with a known history of atrial fibrillation, end-stage renal disease with previous kidney transplant, receiving hemodialysis, legally blind, seizure disorder, hypothyroidism, who had recently undergone an open repair of quadriceps tendons at the left knee for a ruptured quadricep tendon week on 06/24/2023. The procedure itself went well. The patient states since that time however he had been having issues with near constant hiccuping. Tried simple home remedies without much improvement. He presented here to the emergency room on the for the same. While he has the hiccups he did complain of shortness of breath and we are consulted today for the same. A CT scan of the chest and abdomen did reveal bilateral small effusions however otherwise unremarkable. Rest x-ray had revealed no acute pulmonary process and mild cardiomegaly. White count 8.0. Hemoglobin 7.0. Platelets 198. Sodium 138. Potassium 3.8. Bicarb 24. BUN 41. Creatinine 7.8. He is seen today in consultation on the regular medical floor. He is sitting up in a chair. Awake and alert in no acute distress. Maintaining good O2 saturations in the 90s on room air. He has not had a single hiccup since we have been in the room. He had been initiated on Pepcid, baclofen and Reglan which seems to be helping. The patient is seen today July 02, 2023 in follow-up on the regular medical floor. He is currently resting comfortably in bed. Awake and alert in no acute distress. Maintaining good O2 saturations in the 90s on room air. He denies any further issues with hiccups. He has been treated with baclofen, Reglan and Mylicon chews. Denies any shortness of breath, cough or congestion. He has been afebrile. Hemodynamically stable. CT scan of the abdomen pelvis revealed no suspicious obstruction or dilated loops of bowel. Transplant kidney with hydronephrosis and hydroureter. Polycystic kidneys with atrophy. CT scan of the chest revealed no suspicious abnormalities within the chest to account for hiccups. Small right and minimal left pleural effusion. The patient is seen today July 03, 2023 in follow-up on the regular medical floor. He is awake and alert in no acute distress. Resting comfortably in bed. He states his hiccups have improved by at least 80%. He did have a fall last night that was unwitnessed he stated he is slid off the bed. Maybe hit his head on the side of the table. CT scan of the brain revealed no acute intracranial process. He is status post 1 unit of packed red blood cells this admission. Current hemoglobin 8.2. Platelets 201. Count 5.4. Sodium 133. Potassium 4.0. Bicarb 26. BUN 21. Creatinine 5.0. His dialysis schedule is Friday. Heparin for DVT prophylaxis. The patient is seen today July 04, 2023 in follow-up on the regular medical floor. He is resting in bed. Awake and alert in no acute distress. He is maintaining good O2 saturations in the 90s on room air. He states he does have an occasional hiccups now. He is status post 1 unit of packed red blood cells this admission. Current hemoglobin 8.2. Plan is for hemodialysis today and possible home after that. Remains on heparin for DVT prophylaxis. Objective - Vital Signs Vital signs: Vital Signs Temp 98 F 07/04/23 12:44 Pulse 63 07/04/23 12:44 Resp 18 07/04/23 12:44 BP 178/80 07/04/23 12:44 Pulse Ox 99 07/04/23 12:29 FiO2 Intake & Output 07/03/23 07/04/23 07/04/23 18:59 06:59 18:59 Intake Total 500 Output Total 1150 Balance -650 Intake: Hemodialysis 500 Output: Hemodialysis 1150 Other: # Voids 1 0 - Exam GENERAL EXAM: Alert, pleasant 53-year-old male patient, on room air, in no apparent distress. HEAD: Normocephalic. EYES: Legally blind since 2018. Normal reaction of pupils, equal size. NOSE: Clear with pink turbinates. THROAT: No erythema or exudates. NECK: No masses, no JVD. CHEST: No chest wall deformity. LUNGS: Equal air entry with faint crackles in the posterior bases. CVS: S1 and S2 normal with no audible murmur, regular rhythm. ABDOMEN: Large area of ecchymosis of the abdominal wall and bilateral sides. No hepatosplenomegaly, normal bowel sounds, no guarding or rigidity. SPINE: No scoliosis or deformity SKIN: No rashes CENTRAL NERVOUS SYSTEM: No focal deficits, tone is normal in all 4 extremities. EXTREMITIES: Left upper extremity nonworking AV fistula. Right femoral Port-A-Cath in place. The left lower extremity is in a long cast. There is no peripheral edema. No clubbing, no cyanosis. Peripheral pulses are intact. - Labs CBC & Chem 7: 07/03/23 06:01 07/03/23 06:01 Assessment and Plan Assessment: Intractable hiccups since left knee surgery on 06/24/2023 improved, CT scan of the chest and abdomen revealed no abnormalities to cause hiccups Shortness of breath while hiccuping, otherwise comfortable and on room air, recovered Small bilateral pleural effusions Recent open repair of quadriceps tendon of the left knee 06/24/2023 following a ruptured quadricep tendon End-stage renal disease receiving home hemodialysis. 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 Hyperlipidemia Gastroesophageal reflux disease History of seizures History of hypotension, on midodrine Plan: The patient was seen and evaluated Medications reviewed The patient is stable and on room air Hiccups have mostly resolved Plan is for home after hemodialysis today This patient was seen independently by the pulmonary nurse practitioner addressing pulmonary issues I have personally seen and examined the patient, performed the documentation and the assessment and plan as written. Number of minutes spent on the visit: 24.
[2023-07-04] MEDS: HEPARIN SODIUM 1,000 UN/ML (10ML VL) MISCELLANE ONE (13:05)
[2023-07-04] MEDS: chlorproMAZINE 25 MG TAB PO PRN (13:53)
[2023-07-04] MEDS: ASPIRIN 81 MG PO STA (13:53)
[2023-07-04 15:45] VITALS: BMI 26.6
--- NOTE | 2023-07-04 15:52 | US ---
EXAMINATION TYPE: US carotid duplex BILAT DATE OF EXAM: 07/04/2023 COMPARISON: NONE CLINICAL INDICATION: Male, 53 years old with history of Visual disturbance, ?TIA; Patient states basilia d since 2018, however has recently been starting to see things. TECHNIQUE: Carotid duplex ultrasound examination. Indirect Doppler criteria was utilized. FINDINGS: EXAM MEASUREMENTS: RIGHT: Peak Systolic Velocity (PSV) cm/sec ----- Right CCA: 70.1 ----- Right ICA: 105 ----- Right ECA: 92.9 ICA/CCA ratio: 1.5 RIGHT: End Diastole cm/sec ----- Right CCA: 14.3 ----- Right ICA: 33.7 ----- Right ECA: 15.0 LEFT: Peak Systolic Velocity (PSV) cm/sec ----- Left CCA: 76.4 ----- Left ICA: 80.2 ----- Left ECA: 96.7 ICA/CCA ratio: 1.0 LEFT: End Diastole cm/sec ----- Left CCA: 16.5 ----- Left ICA: 24.7 ----- Left ECA: 6.2 VERTEBRALS (direction of flow): Right Vertebral: Antegrade Left Vertebral: Antegrade Rhythm: Normal HOTEL YARDPERSON NOTES: Small amount of plaque bilateral bulbs. No elevated velocities seen. IMPRESSION: No hemodynamically significant internal carotid artery stenosis on either side. Criteria for Assigning % of Stenosis / Diameter reduction (Estimation based on the indirect measurements of the internal carotid artery velocities (ICA PSV). 1. Normal (no stenosis)=ICA PSV < 125 cm/s: ratio < 2.0: ICA EDV<40 cm/s. 2. Less than 50% stenosis=ICA PSV < 125 cm/s: ratio < 2.0: ICA EDV<40 cm/s. 3. 50 to 69% stenosis=ICA PSV of 125 to 230 cm/s: ration 2.0 ? 4.0: ICA EDV 40-100 cm/s. 4. Greater than 70% stenosis to near occlusion= ICA PSV > 230 cm/s: ratio > 4.0: ICA EDV > 100 cm/s. 5. Near occlusion= ICA PSV velocities may be low or undetectable: variable ratio and ICA EDV. 6. Total occlusion=unable to detect flow.
[2023-07-04] MEDS ORDERED: chlorproMAZINE 25 MG TAB PO SCH (16:00)
[2023-07-04] MEDS: ALPRAZolam 0.5 MG TAB PO PRN (16:43)
[2023-07-04] MEDS: SENNOSIDES 8.6 MG TAB PO SCH (21:19)
[2023-07-04] MEDS: MELATONIN 3 MG TABLET PO PRN (22:29)
--- NOTE | 2023-07-05 00:28 | P.PN ---
Subjective Progress Note Date: 07/04/23 Patient was seen for a follow-up. Patient's mother was also present at the bedside. Patient has developed new neurological symptoms. Patient is hallucinating, seeing "tiles" on the ceiling, which are blue-white and different color. Patient is otherwise completely legally blind. These visual hallucinations started during middle of hemodialysis. Patient is aware that these are hallucinations. Patient also has developed numbness from his feet up to above the knees bilaterally. Also has noticed numbness of both hands. This just started today. Hiccups seems to have resolved. Objective - Vital Signs Vital signs: Vital Signs Temp 97.9 F 07/04/23 19:54 Pulse 102 H 07/04/23 21:18 Resp 20 07/04/23 21:18 BP 106/69 07/04/23 19:54 Pulse Ox 95 07/04/23 19:54 FiO2 Intake & Output 07/04/23 07/04/23 07/05/23 06:59 18:59 06:59 Intake Total 500 Output Total 1150 Balance -650 Weight 81.647 kg Intake: Hemodialysis 500 Output: Hemodialysis 1150 Other: # Voids 0 0 - Exam On examination mental status, speech and language functions are normal. Patient is legally blind. Face is symmetric and tongue protrudes midline. On muscle strength testing (right/left) deltoid 5-/5, biceps 5/5, triceps 4/5, bookseamer blindstitch 5/5. There is no definitive pronator drift. Patient does have some mild myoclonic jerks noted. Reflexes are trace to absent and plantars downgoing. - Labs CBC & Chem 7: 07/03/23 06:01 07/03/23 06:01 Assessment and Plan Assessment: * New onset hiccups since left leg tendon repair surgery 06/24/2023, unclear cause. Possibly related to recent postoperative state. He had similar hiccups after his kidney transplant as well, that lasted for 2 weeks and then went away. The hiccups have resolved. * New onset hallucinations, and numbness of legs from toes up to above knees, and hands, unclear cause. * Atrial fibrillation * End-stage renal disease, on peritoneal dialysis * Status post failed kidney transplant in 1998 * Seizure disorder * Recent fall with quadriceps tendon rupture, status postrepair 06/24/2023. * Legal blindness Plan: * Patient has developed acute onset of visual hallucinations, numbness of his arms and legs of unclear cause. Need further workup as below. * Carotid Doppler performed today, which revealed small amount of plaque bilateral bulbs. No elevated velocities. Antegrade flow in both vertebral arteries. * Echo from 04/25/2023 revealed normal left ventricular size and systolic function. Moderate mitral annular calcification with mild to moderate mitral regurgitation. Severely calcified aortic valve with mean gradient of 31 mmHg. Moderately increased left atrial diameter. * Start aspirin 81 mg daily. * Hemoglobin A1c. * Lipid panel with cholesterol 116, LDL 51, HDL 31, triglycerides 159 on 05/09/2023. Continue Lipitor 40 mg daily. * Patient's hiccups have resolved. * Patient started on Thorazine 12.5 mg twice daily as needed, and gabapentin 100 mg twice daily. * Dr. Tirado will resume neurology service over the weekend.
[2023-07-05 03:35] VITALS: RESP 16
--- NOTE | 2023-07-05 05:03 | P.PN ---
Subjective Progress Note Date: 07/04/23 Patient is a 51-year-old male with a past medical history of recent fall and left lateral abdominal wall large ecchymosis, chronic atrial fibrillation not on anticoagulation due to frequent falls, legally blind, ESRD on hemodialysis Friday and Friday, hypothyroidism, seizure disorder, history of renal transplant failure and other multiple medical problems presents to ER with complaints of intractable hiccups started after surgery and has not been improving. Patient presented back to the hospital. Patient is status post open repair of quadriceps tendon on left knee by orthopedic surgery on 06/24/2023. Patient does have left knee cast. Denies any complaints of pain. Undergoing hemodialysis as per schedule. No complaints of chest pain or shortness of breath. No nausea vomiting abdomi nal pain or diarrhea. No dysuria or hematuria. No dizziness or lightheadedness. Laboratory data showed WBC 10.3 hemoglobin 7.9 and platelets 197, sodium 134 potassium 3.8 chloride 99 BUN 33 and creatinine 5.98, blood sugar 101 albumin 3.0 06/30/2023 Patient seen and evaluated in follow-up today continues to report frequent hiccups with no relief reporting it is making him short of breath. Chest x-ray showing cardiomegaly with no acute process. Nephrology following patient is scheduled to undergo hemodialysis. Will adjust medications and add IV Pepcid along with Reglan scheduled. Patient is afebrile with no reported chest pain or palpitations. Patient is tolerating diet and denies nausea or vomiting. Patient continues on subcu heparin. Hemoglobin is 7.0. Will give 1 unit of PRBC. 07/01/2023 Patient is seen and evaluated in follow-up this morning continues to report persistent hiccups with no relief causing abdominal pain and shortness of breath. Patient with nephrology following recommending pulmonary consultation which is currently pending. Patient continues on Reglan and will increase to 10 mg 3 times daily as scheduled, baclofen, and supportive care. Plan is for hemo dialysis tomorrow. Will obtain CT abdomen pelvis as patient is reporting abdominal pain and persistent hiccups. Patient is afebrile with no reports of chest pain or palpitations. 07/02/2023 Patient is seen this morning continues to have persistent hiccups with minimal relief. Patient being followed by multiple consultations and was continued on baclofen, Reglan, Pepcid with no significant relief. Will consult GI and neurology as well as cardiology as troponin was found to be slightly elevated. ESR and sed rate ordered this time. Hemoglobin is stable and patient is receiving hemodialysis today. Patient with no reports of chest pain or palpitations. Will order 2D echo as well. Patient reporting some his cast on the left lower extremity from recent tendon rupture repair and will consult orthopedics. Speech also evaluated the patient with no difficulties or issues with swallowing. CT abdomen pelvis from yesterday with no acute abnormalities noted. 07/03/2023 Patient is seen in follow-up today currently sleeping per nursing staff patient has been more lethargic today. Concerned of possible Thorazine effect and will discontinue. Continue with Reglan at a lower dose as patient continues to have hiccups. Multiple medical consultations following and GI has been consulted. N o plans of endoscopic intervention at this time. Neurology has been consulted and pending as well. Patient reported to have a fall early this morning landing on his butt although reported to the nursing staff he struck his head on the table and having head pain. CT brain ordered with no acute findings noted. Patient is afebrile with no reported chest pain. Patient reports shortness of breath with persistent hiccups. Orthopedics following as well as patient is recently status post left quadriceps tendon rupture repair and continues with a cast of the entire left lower extremity. Patient had been reporting to staff on previous shift of some discomfort and pain on the back of the cast. 07/04/2023 Patient is seen in follow-up morning currently undergoing hemodialysis reporting visual hallucinations of seeing regular blue shapes on the ceiling although is reported as legally blind. Neurology following undergoing further workup including carotid Doppler. Patient has been seen and evaluated by orthopedics with no plans regarding casting and recommend outpatient follow-up. Patient is afebrile with no reported chest pain or shortness of breath. Hiccups have somewhat resolved at this time. After discussion with neurology will adjust medications including gabapentin and making Thorazine lesser dose as needed. Patient with anxiety. Monitor for any further residuals possibly side effects from medication adjustments being made most recently. Review of systems: Constitutional: No reports of fatigue, no fever, or chills, reporting visual hallucinations Cardiovascular: No reports of chest pain or palpitations Respiratory: No reports of shortness of breath GI: No reports of nausea, vomiting, or diarrhea, reports hiccups have improved. : No reports of dysuria or retention Neurovascular: No reports of weakness or numbness, reports left leg pain underneath the cast that has resolved All medications have been reviewed PHYSICAL EXAMINATION: Patient is lying in the bed , awake, alert and oriented x 3, well-developed, well-nourished, legally blind.. HEENT: Normocephalic. Neck is supple. Pupils reactive. Nostrils clear. Oral cavity is moist. Neck reveals no JVD, carotid bruits, or thyromegaly. CHEST EXAMINATION: Trachea is central. Symmetrical expansion. Lung maher clear to auscultation and percussion. Hiccups on exam noted while sleeping CARDIAC: S1, S2 are muffled ABDOMEN: Soft. Obese. Bowel sounds normal. No organomegaly. No abdominal bruits. Extremities: reveal no edema. No clubbing or cyanosis Neurologically awake, alert, oriented x3 with well-coordinated movements. No focal deficits noted Skin: No rash or skin lesions. Psychiatric: Cooperative. Non-suicidal Musculoskeletal: No joint swelling or deformity. Left lower extremity cast in place Assessment: Intractable hiccups, possibly secondary to anesthesia effect that is post open r epair, quadriceps tendon of the left knee on 06/24/23 Recent history of fall with large ecchymosis over the left lateral abdominal wall and hypovolemic shock and also noted to have left knee swelling and MRI showed rupture of quadriceps tendon along with moderate-sized effusion within the joint. Patient was in the hospital from 05/31/2023 to 06/06/2023. Mechanical fall landing on buttock and striking head on the side table, CT negative for acute findings Visual hallucinations, possibly secondary to medication effect Generalized weakness and frequent falls related to legal blindness and comorbidities. ESRD on hemodialysis Friday and Friday Anemia of chronic disease with hemoglobin around 9 at baseline, hemoglobin improved status post 1 unit of PRBC History of renal transplant in 1998 Chronic atrial fibrillation not on anticoagulation due to frequent falls and anemia Severely calcified aortic valve, moderate mitral calcification and mild to moderate MR Legally blind Hypothyroidism DVT prophylaxis with heparin subcu while in the hospital GI prophylaxis with PPI Full code Plan: Patient being followed by multiple medical complications. Patient reporting hiccups have resolved. Will add gabapentin scheduled and make Thorazine as needed as well as Reglan Patient having some overall anxiety and reporting some visual hallucinations during dialysis today, will add Xanax as needed and monitor Hemoglobin improved status post 1 unit of PRBC, no active bleeding noted and hemoglobin is above 8 Nephrology following with hemodialysis, patient receiving dialysis Friday Patient had an unwitnessed fall landing on his buttock although reported he struck his head on the side table having head pain. CT of the brain was negative for acute findings Pulmonary, neurology, GI, and orthopedics consulted. Orthopedics consulted as patient is reporting left lower extremity leg pain where his cast is from previous quadriceps tendon repair last week. Orthopedics evaluated with no plans of further intervention and patient denies any further pain at this time. Continue with telemonitoring. Continue with amiodarone and metoprolol and other home medications including levothyroxine and prednisone 10 mg daily. Patient is also on midodrine as needed. Also on Florinef. Patient being started on aspirin per neurology and will need outpatient neurology follow-up Not on anticoagulation due to frequent falls and legally blind. Continue subcu heparin while in the hospital Due to multiple complex medical issues, prognosis is guarded The impression and plan of care has been dictated by Donna Taylor, Nurse Practitioner as directed. Dr. Emeterio MD I have performed a history and examination and MDM of this patient, discussed the same with the dictator, and agree with the dictator's assessment and plan as written ,documented as a scribe. Based on total visit time, I have performed more than 50% of the visit. Objective - Vital Signs Vital signs: Vital Signs Temp 98.1 F 07/04/23 07:00 Pulse 58 L 07/04/23 07:00 Resp 17 07/04/23 07:00 BP 148/80 07/04/23 07:00 Pulse Ox 98 07/04/23 07:00 FiO2 Intake & Output 07/03/23 07/04/23 07/04/23 18:59 06:59 18:59 Other: # Voids 1 0 - Labs CBC & Chem 7: 07/03/23 06:01 07/03/23 06:01
[2023-07-05] MEDS: ASPIRIN 81 MG PO SCH (09:01)
--- NOTE | 2023-07-05 12:02 | P.PN ---
Subjective Progress Note Date: 07/05/23 This is a pleasant 53-year-old male patient with a known history of atrial fibrillation, end-stage renal disease with previous kidney transplant, receiving hemodialysis, legally blind, seizure disorder, hypothyroidism, who had recently undergone an open repair of quadriceps tendons at the left knee for a ruptured quadricep tendon week on 06/24/2023. The procedure itself went well. The patient states since that time however he had been having issues with near constant hiccuping. Tried simple home remedies without much improvement. He presented here to the emergency room on the for the same. While he has the hiccups he did complain of shortness of breath and we are consulted today for the same. A CT scan of the chest and abdomen did reveal bilateral small effusions however otherwise unremarkable. Rest x-ray had revealed no acute pulmonary process and mild cardiomegaly. White count 8.0. Hemoglobin 7.0. Platelets 198. Sodium 138. Potassium 3.8. Bicarb 24. BUN 41. Creatinine 7.8. He is seen today in consultation on the regular medical floor. He is sitting up in a chair. Awake and alert in no acute distress. Maintaining good O2 saturations in the 90s on room air. He has not had a single hiccup since we have been in the room. He had been initiated on Pepcid, baclofen and Reglan which seems to be helping. The patient is seen today July 02, 2023 in follow-up on the regular medical floor. He is currently resting comfortably in bed. Awake and alert in no acute distress. Maintaining good O2 saturations in the 90s on room air. He denies any further issues with hiccups. He has been treated with baclofen, Reglan and Mylicon chews. Denies any shortness of breath, cough or congestion. He has been afebrile. Hemodynamically stable. CT scan of the abdomen pelvis revealed no suspicious obstruction or dilated loops of bowel. Transplant kidney with hydronephrosis and hydroureter. Polycystic kidneys with atrophy. CT scan of the chest revealed no suspicious abnormalities within the chest to account for hiccups. Small right and minimal left pleural effusion. The patient is seen today July 03, 2023 in follow-up on the regular medical floor. He is awake and alert in no acute distress. Resting comfortably in bed. He states his hiccups have improved by at least 80%. He did have a fall last night that was unwitnessed he stated he is slid off the bed. Maybe hit his head on the side of the table. CT scan of the brain revealed no acute intracranial process. He is status post 1 unit of packed red blood cells this admission. Current hemoglobin 8.2. Platelets 201. Count 5.4. Sodium 133. Potassium 4.0. Bicarb 26. BUN 21. Creatinine 5.0. His dialysis schedule is Friday. Heparin for DVT prophylaxis. The patient is seen today July 04, 2023 in follow-up on the regular medical floor. He is resting in bed. Awake and alert in no acute distress. He is maintaining good O2 saturations in the 90s on room air. He states he does have an occasional hiccups now. He is status post 1 unit of packed red blood cells this admission. Current hemoglobin 8.2. Plan is for hemodialysis today and possible home after that. Remains on heparin for DVT prophylaxis. The patient is seen today July 05, 2023 in follow-up on the regular medical floor. He is awake and alert in no acute distress. He is resting comfortably in bed. He is maintaining O2 saturations in the upper 90s on room air. Afebrile. Hemodynamically stable. Yesterday he did have issues with hallucinations and confusion. He is being followed by neurology. Carotid Doppler revealed no evidence of significant carotid stenosis bilaterally. His hiccups have basically subsided. Objective - Vital Signs Vital signs: Vital Signs Temp 97.8 F 07/05/23 08:00 Pulse 63 07/05/23 08:00 Resp 16 07/05/23 08:00 BP 117/69 07/05/23 08:00 Pulse Ox 98 07/05/23 08:00 FiO2 Intake & Output 07/04/23 07/05/23 07/05/23 18:59 06:59 18:59 Intake Total 500 118 Output Total 1150 300 Balance -650 -300 118 Weight 81.647 kg Intake: Oral 118 Hemodialysis 500 Output: Urine 300 Hemodialysis 1150 Other: # Voids 0 - Exam GENERAL EXAM: Alert, 53-year-old male patient, resting in bed, on room air, in no apparent distress. HEAD: Normocephalic. EYES: Legally blind since 2018. Normal reaction of pupils, equal size. NOSE: Clear with pink turbinates. THROAT: No erythema or exudates. NECK: No masses, no JVD. CHEST: No chest wall deformity. LUNGS: Equal air entry with faint crackles in the posterior bases. CVS: S1 and S2 normal with no audible murmur, regular rhythm. ABDOMEN: Large area of ecchymosis of the abdominal wall and bilateral sides. No hepatosplenomegaly, normal bowel sounds, no guarding or rigidity. SPINE: No scoliosis or deformity SKIN: No rashes CENTRAL NERVOUS SYSTEM: No focal deficits, tone is normal in all 4 extremities. EXTREMITIES: Left upper extremity nonworking AV fistula. Right femoral Port-A-Cath in place. The left lower extremity is in a long cast. There is no peripheral edema. No clubbing, no cyanosis. Peripheral pulses are intact. - Labs CBC & Chem 7: 07/03/23 06:01 07/03/23 06:01 Assessment and Plan Assessment: Intractable hiccups since left knee surgery on 06/24/2023 improved, CT scan of the chest and abdomen revealed no abnormalities to cause hiccups Shortness of breath while hiccuping, otherwise comfortable and on room air, recovered Small bilateral pleural effusions Recent open repair of quadriceps tendon of the left knee 06/24/2023 following a ruptured quadricep tendon End-stage renal disease receiving home hemodialysis. 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 Hyperlipidemia Gastroesophageal reflux disease History of seizures History of hypotension, on midodrine Plan: The patient was seen and evaluated Medications reviewed The patient is on room air Hiccups have mostly resolved He was having issues with hallucinations Neurology is following Stable for discharge from the pulmonary standpoint This patient was seen independently by the pulmonary nurse practitioner addressing pulmonary issues I have personally seen and examined the patient, performed the documentation and the assessment and plan as written. Number of minutes spent on the visit: 23.
--- NOTE | 2023-07-05 16:10 | P.PN ---
Subjective Progress Note Date: 07/05/23 The patient is a 53-year-old male who was seen in neurologic follow-up on July 05, 2023, in cross coverage for Dr. Paulson, in collaboration with Melissa Kurtz, via teleneurology. History is obtained from review of the chart. The patient is able to provide history. He reports that his abnormal visual sensations seem to be resolving. He reports that he is able to see items on the lower half of each visual field. Objective - Vital Signs Vital signs: Vital Signs Temp 97.8 F 07/05/23 08:00 Pulse 63 07/05/23 08:00 Resp 16 07/05/23 08:00 BP 117/69 07/05/23 08:00 Pulse Ox 98 07/05/23 08:00 FiO2 Intake & Output 07/04/23 07/05/23 07/05/23 18:59 06:59 18:59 Intake Total 500 118 Output Total 1150 300 Balance -650 -300 118 Weight 81.647 kg Intake: Oral 118 Hemodialysis 500 Output: Urine 300 Hemodialysis 1150 Other: # Voids 0 - Exam General: The patient is reclining in the bed. He quickly sits on the edge of the bed. He is in no acute distress. He appears older than his stated age. HEENT: Head is atraumatic, normocephalic. Fundus not visualized. There is no scleral icterus. Mucous membranes are moist. Neurologic examination Mental status: The patient is awake, alert and oriented x 3. His speech is clear. Cranial nerves: Pupils are equal at 3 mm and reactive. Visual field testing appears to indicate that the patient is able to see items that are placed in his lower field of vision, bilaterally. Extraocular movements are intact. There is no facial asymmetry. Hearing is grossly intact. Motor: Strength is 5/5 throughout. Coordination: Patient is able to accurately touch his own [id number]. There is no ataxia or dysmetria. - Labs CBC & Chem 7: 07/03/23 06:01 07/03/23 06:01 Assessment and Plan Assessment: New onset hiccups since left leg tendon repair surgery 06/24/2023, unclear cause. Possibly related to recent postoperative state. He had similar hiccups after his kidney transplant as well, that lasted for 2 weeks and then went away. The hiccups have resolved. * New onset visual hallucinations, and numbness of legs from toes up to above knees, and hands, unclear cause-currently resolved, possibly secondary to encephalopathy versus medication effect * Atrial fibrillation * End-stage renal disease, on peritoneal dialysis * Status post failed kidney transplant in 1998 * Seizure disorder * Recent fall with quadriceps tendon rupture, status postrepair 06/24/2023. * Legal blindness Plan: 1. Your continue treatment of the patient's metabolic and medical issues 2. Neurology will sign off at this time. Please call with questions or concerns. Time with Patient: Greater than 30 (35 minutes were spent caring for this patient today including, obtaining history, examining the patient, reviewing imaging, chart documentation, labs, creating this note)
--- NOTE | 2023-07-06 03:23 | P.PN ---
Subjective Progress Note Date: 07/05/23 Patient is a 51-year-old male with a past medical history of recent fall and left lateral abdominal wall large ecchymosis, chronic atrial fibrillation not on anticoagulation due to frequent falls, legally blind, ESRD on hemodialysis Friday and Friday, hypothyroidism, seizure disorder, history of renal transplant failure and other multiple medical problems presents to ER with complaints of intractable hiccups started after surgery and has not been improving. Patient presented back to the hospital. Patient is status post open repair of quadriceps tendon on left knee by orthopedic surgery on 06/24/2023. Patient does have left knee cast. Denies any complaints of pain. Undergoing hemodialysis as per schedule. No complaints of chest pain or shortness of breath. No nausea vomiting abdomi nal pain or diarrhea. No dysuria or hematuria. No dizziness or lightheadedness. Laboratory data showed WBC 10.3 hemoglobin 7.9 and platelets 197, sodium 134 potassium 3.8 chloride 99 BUN 33 and creatinine 5.98, blood sugar 101 albumin 3.0 06/30/2023 Patient seen and evaluated in follow-up today continues to report frequent hiccups with no relief reporting it is making him short of breath. Chest x-ray showing cardiomegaly with no acute process. Nephrology following patient is scheduled to undergo hemodialysis. Will adjust medications and add IV Pepcid along with Reglan scheduled. Patient is afebrile with no reported chest pain or palpitations. Patient is tolerating diet and denies nausea or vomiting. Patient continues on subcu heparin. Hemoglobin is 7.0. Will give 1 unit of PRBC. 07/01/2023 Patient is seen and evaluated in follow-up this morning continues to report persistent hiccups with no relief causing abdominal pain and shortness of breath. Patient with nephrology following recommending pulmonary consultation which is currently pending. Patient continues on Reglan and will increase to 10 mg 3 times daily as scheduled, baclofen, and supportive care. Plan is for hemo dialysis tomorrow. Will obtain CT abdomen pelvis as patient is reporting abdominal pain and persistent hiccups. Patient is afebrile with no reports of chest pain or palpitations. 07/02/2023 Patient is seen this morning continues to have persistent hiccups with minimal relief. Patient being followed by multiple consultations and was continued on baclofen, Reglan, Pepcid with no significant relief. Will consult GI and neurology as well as cardiology as troponin was found to be slightly elevated. ESR and sed rate ordered this time. Hemoglobin is stable and patient is receiving hemodialysis today. Patient with no reports of chest pain or palpitations. Will order 2D echo as well. Patient reporting some his cast on the left lower extremity from recent tendon rupture repair and will consult orthopedics. Speech also evaluated the patient with no difficulties or issues with swallowing. CT abdomen pelvis from yesterday with no acute abnormalities noted. 07/03/2023 Patient is seen in follow-up today currently sleeping per nursing staff patient has been more lethargic today. Concerned of possible Thorazine effect and will discontinue. Continue with Reglan at a lower dose as patient continues to have hiccups. Multiple medical consultations following and GI has been consulted. N o plans of endoscopic intervention at this time. Neurology has been consulted and pending as well. Patient reported to have a fall early this morning landing on his butt although reported to the nursing staff he struck his head on the table and having head pain. CT brain ordered with no acute findings noted. Patient is afebrile with no reported chest pain. Patient reports shortness of breath with persistent hiccups. Orthopedics following as well as patient is recently status post left quadriceps tendon rupture repair and continues with a cast of the entire left lower extremity. Patient had been reporting to staff on previous shift of some discomfort and pain on the back of the cast. 07/04/2023 Patient is seen in follow-up morning currently undergoing hemodialysis reporting visual hallucinations of seeing regular blue shapes on the ceiling although is reported as legally blind. Neurology following undergoing further workup including carotid Doppler. Patient has been seen and evaluated by orthopedics with no plans regarding casting and recommend outpatient follow-up. Patient is afebrile with no reported chest pain or shortness of breath. Hiccups have somewhat resolved at this time. After discussion with neurology will adjust medications including gabapentin and making Thorazine lesser dose as needed. Patient with anxiety. Monitor for any further residuals possibly side effects from medication adjustments being made most recently. 07/05/2023 Patient is seen and evaluated today and hiccups have subsided. Patient denies any further hallucinations, likely medication effect. Patient is continued on Thorazine as needed along with gabapentin and will continue. Neurology evaluated the patient with no further plans recommending outpatient follow-up as needed. Patient is afebrile with no reported chest pain or shortness of breath. Will discuss further with other consultations regarding discharge planning with possible discharge in the next 24 to 48 hours. Plans on returning home with mother who is his caregiver. Continue hemodialysis as scheduled. Review of systems: Constitutional: No reports of fatigue, no fever, or chills, reporting visual hallucinations have subsided Cardiovascular: No reports of chest pain or palpitations Respiratory: No reports of shortness of breath GI: No reports of nausea, vomiting, or diarrhea, reports hiccups have improved. : No reports of dysuria or retention Neurovascular: No reports of weakness or numbness, reports left leg pain underneath the cast that has resolved All medications have been reviewed PHYSICAL EXAMINATION: Patient is lying in the bed , asleep although arousable, alert and oriented x 3, well-developed, well-nourished, legally blind.. HEENT: Normocephalic. Neck is supple. Pupils reactive. Nostrils clear. Oral cavity is moist. Neck reveals no JVD, carotid bruits, or thyromegaly. CHEST EXAMINATION: Trachea is central. Symmetrical expansion. Lung maher clear to auscultation and percussion. CARDIAC: S1, S2 are muffled ABDOMEN: Soft. Obese. Bowel sounds normal. No organomegaly. No abdominal bruits. Extremities: reveal no edema. No clubbing or cyanosis Neurologically awake, alert, oriented x3 with well-coordinated movements. No focal deficits noted, diffusely weak Skin: No rash or skin lesions. Psychiatric: Cooperative. Non-suicidal Musculoskeletal: No joint swelling or deformity. Left lower extremity cast in place Assessment: Intractable hiccups, possibly secondary to anesthesia effect that is post open repair, quadriceps tendon of the left knee on 06/24/23 Recent history of fall with large ecchymosis over the left lateral abdominal wall and hypovolemic shock and also noted to have left knee swelling and MRI showed rupture of quadriceps tendon along with moderate-sized effusion within the joint. Patient was in the hospital from 05/31/2023 to 06/06/2023. Mechanical fall landing on buttock and striking head on the side table, CT negative for acute findings Visual hallucinations, most likely secondary to medication effect, resolved Generalized weakness and frequent falls related to legal blindness and comorbidities. ESRD on hemodialysis Friday and Friday Anemia of chronic disease with hemoglobin around 9 at baseline, hemoglobin improved status post 1 unit of PRBC History of renal transplant in 1998 Chronic atrial fibrillation not on anticoagulation due to frequent falls and anemia Severely calcified aortic valve, moderate mitral calcification and mild to moderate MR Legally blind Hypothyroidism DVT prophylaxis with heparin subcu while in the hospital GI prophylaxis with PPI Full code Plan: Patient being followed by multiple medical complications. Patient reporting hiccups have resolved. Will continue gabapentin scheduled and make Thorazine as needed as well as Reglan Patient having some overall anxiety and reporting some visual hallucinations during dialysis which have now resolved., Continue Xanax as needed and monitor Hemoglobin improved status post 1 unit of PRBC, no active bleeding noted and hemoglobin is above 8 Nephrology following with hemodialysis, patient receiving dialysis Friday Patient had an unwitnessed fall landing on his buttock although reported he struck his head on the side table having head pain. CT of the brain was negative for acute findings Pulmonary, neurology, GI, and orthopedics consulted. Orthopedics consulted as patient is reporting left lower extremity leg pain where his cast is from previous quadriceps tendon repair last week. Orthopedics evaluated with no plans of further intervention and patient denies any further pain at this time. Continue with telemonitoring. Continue with amiodarone and metoprolol and other home medications including levothyroxine and prednisone 10 mg daily. Patient is also on midodrine as needed. Also on Florinef. Patient being continued on aspirin per neurology and will need outpatient neurology follow-up. Neurologically clear once cleared by other consultations Not on anticoagulation due to frequent falls and legally blind. Continue subcu heparin while in the hospital Due to multiple complex medical issues, prognosis is guarded Possible discharge planning in the next 24 to 48 hours The impression and plan of care has been dictated by Donna Taylor, Nurse Practitioner as directed. Dr. Emeterio MD I have performed a history and examination and MDM of this patient, discussed the same with the dictator, and agree with the dictator's assessment and plan as written ,documented as a scribe. Based on total visit time, I have performed more than 50% of the visit. Objective - Vital Signs Vital signs: Vital Signs Temp 98.8 F 07/05/23 20:38 Pulse 85 07/05/23 20:38 Resp 16 07/05/23 20:38 BP 99/62 07/05/23 20:38 Pulse Ox 95 07/05/23 20:38 FiO2 Intake & Output 07/05/23 07/05/23 07/06/23 06:59 18:59 06:59 Intake Total 518 Output Total 300 1400 Balance -300 -882 Intake: Oral 118 Hemodialysis 400 Output: Urine 300 Hemodialysis 1400 Other: # Voids 1 - Labs CBC & Chem 7: 07/03/23 06:01 07/03/23 06:01
[2023-07-06 07:44] VITALS: BP 119/72; PULSE 60; TEMP 97.9
--- NOTE | 2023-07-06 12:15 | P.PN ---
Subjective patient is seen for follow-up for end-stage renal disease. Tolerated hemodialysis well yesterday. no more hiccups. Patient feels well and wants to go home Objective - Vital Signs Vital signs: Vital Signs Temp 97.9 F 07/06/23 07:24 Pulse 60 07/06/23 07:24 Resp 16 07/06/23 07:24 BP 119/72 07/06/23 07:24 Pulse Ox 97 07/06/23 07:24 FiO2 Intake & Output 07/05/23 07/06/23 07/06/23 18:59 06:59 18:59 Intake Total 518 Output Total 1400 Balance -882 Intake: Oral 118 Hemodialysis 400 Output: Hemodialysis 1400 Other: # Voids 1 0 - Exam patient is awake, comfortable, alert oriented 3 Examination of the heart S1 and S2 Examination of the lungs bilateral breath sounds are hear [employer] exam grossly intact Trace edema noted in lower extremities, left leg in cast - Labs CBC & Chem 7: 07/03/23 06:01 07/03/23 06:01 Assessment and Plan Assessment: 1. End-stage renal disease maintained on home hemodialysis on Friday, Friday, Friday and Friday schedule via femoral permacath. 2. Intractable hiccups , improving, now resolved 3. Status post open repair of quadriceps tendon of the left knee on 06/24/2023 4. Recent history of fall and large ecchymosis over the abdominal wall and on the sides 5. CK D mineral bone disorder Plan: okay to discharge from nephrology standpoint
--- NOTE | 2023-07-06 13:19 | P.PN ---
Subjective Progress Note Date: 07/06/23 This is a pleasant 53-year-old male patient with a known history of atrial fibrillation, end-stage renal disease with previous kidney transplant, receiving hemodialysis, legally blind, seizure disorder, hypothyroidism, who had recently undergone an open repair of quadriceps tendons at the left knee for a ruptured quadricep tendon week on 06/24/2023. The procedure itself went well. The patient states since that time however he had been having issues with near constant hiccuping. Tried simple home remedies without much improvement. He presented here to the emergency room on the for the same. While he has the hiccups he did complain of shortness of breath and we are consulted today for the same. A CT scan of the chest and abdomen did reveal bilateral small effusions however otherwise unremarkable. Rest x-ray had revealed no acute pulmonary process and mild cardiomegaly. White count 8.0. Hemoglobin 7.0. Platelets 198. Sodium 138. Potassium 3.8. Bicarb 24. BUN 41. Creatinine 7.8. He is seen today in consultation on the regular medical floor. He is sitting up in a chair. Awake and alert in no acute distress. Maintaining good O2 saturations in the 90s on room air. He has not had a single hiccup since we have been in the room. He had been initiated on Pepcid, baclofen and Reglan which seems to be helping. The patient is seen today July 02, 2023 in follow-up on the regular medical floor. He is currently resting comfortably in bed. Awake and alert in no acute distress. Maintaining good O2 saturations in the 90s on room air. He denies any further issues with hiccups. He has been treated with baclofen, Reglan and Mylicon chews. Denies any shortness of breath, cough or congestion. He has been afebrile. Hemodynamically stable. CT scan of the abdomen pelvis revealed no suspicious obstruction or dilated loops of bowel. Transplant kidney with hydronephrosis and hydroureter. Polycystic kidneys with atrophy. CT scan of the chest revealed no suspicious abnormalities within the chest to account for hiccups. Small right and minimal left pleural effusion. The patient is seen today July 03, 2023 in follow-up on the regular medical floor. He is awake and alert in no acute distress. Resting comfortably in bed. He states his hiccups have improved by at least 80%. He did have a fall last night that was unwitnessed he stated he is slid off the bed. Maybe hit his head on the side of the table. CT scan of the brain revealed no acute intracranial process. He is status post 1 unit of packed red blood cells this admission. Current hemoglobin 8.2. Platelets 201. Count 5.4. Sodium 133. Potassium 4.0. Bicarb 26. BUN 21. Creatinine 5.0. His dialysis schedule is Friday. Heparin for DVT prophylaxis. The patient is seen today July 04, 2023 in follow-up on the regular medical floor. He is resting in bed. Awake and alert in no acute distress. He is maintaining good O2 saturations in the 90s on room air. He states he does have an occasional hiccups now. He is status post 1 unit of packed red blood cells this admission. Current hemoglobin 8.2. Plan is for hemodialysis today and possible home after that. Remains on heparin for DVT prophylaxis. The patient is seen today July 05, 2023 in follow-up on the regular medical floor. He is awake and alert in no acute distress. He is resting comfortably in bed. He is maintaining O2 saturations in the upper 90s on room air. Afebrile. Hemodynamically stable. Yesterday he did have issues with hallucinations and confusion. He is being followed by neurology. Carotid Doppler revealed no evidence of significant carotid stenosis bilaterally. His hiccups have basically subsided. The patient is seen today July 06, 2023 in follow-up on the regular medical floor. He is currently sitting up at the side of the bed. Awake and alert in no acute distress. He is oriented x 3. His mom is at the bedside. He denies any worsening shortness of breath, cough or congestion. He denies any significant hiccups. He remains on Reglan. Heparin for DVT prophylaxis. Objective - Vital Signs Vital signs: Vital Signs Temp 97.9 F 07/06/23 07:24 Pulse 60 07/06/23 07:24 Resp 16 07/06/23 07:24 BP 119/72 07/06/23 07:24 Pulse Ox 97 07/06/23 07:24 FiO2 Intake & Output 07/05/23 07/06/23 07/06/23 18:59 06:59 18:59 Intake Total 518 Output Total 1400 Balance -882 Intake: Oral 118 Hemodialysis 400 Output: Hemodialysis 1400 Other: # Voids 1 0 - Exam GENERAL EXAM: Alert, oriented, pleasant 53-year-old male patient, resting in bed, on room air, in no apparent distress. HEAD: Normocephalic. EYES: Legally blind since 2018. Normal reaction of pupils, equal size. NOSE: Clear with pink turbinates. THROAT: No erythema or exudates. NECK: No masses, no JVD. CHEST: No chest wall deformity. LUNGS: Equal air entry with faint crackles in the posterior bases. CVS: S1 and S2 normal with no audible murmur, regular rhythm. ABDOMEN: Large area of ecchymosis of the abdominal wall and bilateral sides. No hepatosplenomegaly, normal bowel sounds, no guarding or rigidity. SPINE: No scoliosis or deformity SKIN: No rashes CENTRAL NERVOUS SYSTEM: No focal deficits, tone is normal in all 4 extremities. EXTREMITIES: Left upper extremity nonworking AV fistula. Right femoral Port-A-C ath in place. The left lower extremity is in a long cast. There is no peripheral edema. No clubbing, no cyanosis. Peripheral pulses are intact. - Labs CBC & Chem 7: 07/03/23 06:01 07/03/23 06:01 Assessment and Plan Assessment: Intractable hiccups since left knee surgery on 06/24/2023 improved, CT scan of the chest and abdomen revealed no abnormalities to cause hiccups Shortness of breath while hiccuping, otherwise comfortable and on room air, recovered Small bilateral pleural effusions Recent open repair of quadriceps tendon of the left knee 06/24/2023 following a ruptured quadricep tendon End-stage renal disease receiving home hemodialysis. 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 Hyperlipidemia Gastroesophageal reflux disease History of seizures History of hypotension, on midodrine Plan: The patient was seen and evaluated Medications reviewed The patient is on room air Hiccups have mostly resolved Stable for discharge from the pulmonary standpoint This patient was seen independently by the pulmonary nurse practitioner joe gossng pulmonary issues I have personally seen and examined the patient, performed the documentation and the assessment and plan as written. Number of minutes spent on the visit: 24.
== END 2023-07-06 13:10 | disposition home or self-care (01) | DRG 204 ==
LOC: EC 11:11 → 6NMEDSUR 15:53 → OBSVTOIN 15:54 → 6NMEDSUR 19:13
PROVIDERS: ADMIT Internal Medicine; ATTEND Internal Medicine
PROC: 5A1D70Z Performance of Urinary Filtration, Intermittent, Less than 6 Hours Per Day (ICD-10-PCS; principal; 2023-06-30)
PROC: 30233N1 Transfusion of Nonautologous Red Blood Cells into Peripheral Vein, Percutaneous Approach (ICD-10-PCS; 2023-07-01)
DX: R06.6 Hiccough (principal); N18.6 End stage renal disease; I48.20 Chronic atrial fibrillation, unspecified; Q61.3 Polycystic kidney, unspecified; N13.30 Unspecified hydronephrosis; I12.0 Hypertensive chronic kidney disease with stage 5 chronic kidney disease or end stage renal disease; I48.0 Paroxysmal atrial fibrillation; H54.8 Legal blindness, as defined in USA; M89.8X9 Other specified disorders of bone, unspecified site; R29.6 Repeated falls; Z99.2 Dependence on renal dialysis; Z79.01 Long term (current) use of anticoagulants; Z88.5 Allergy status to narcotic agent; Z88.8 Allergy status to other drugs, medicaments and biological substances; K21.9 Gastro-esophageal reflux disease without esophagitis; Z79.890 Hormone replacement therapy; E11.22 Type 2 diabetes mellitus with diabetic chronic kidney disease; E78.5 Hyperlipidemia, unspecified; F41.9 Anxiety disorder, unspecified; D63.1 Anemia in chronic kidney disease; G40.909 Epilepsy, unspecified, not intractable, without status epilepticus; W06.XXXA Fall from bed, initial encounter; I08.2 Rheumatic disorders of both aortic and tricuspid valves; X50.1XXA Overexertion from prolonged static or awkward postures, initial encounter; Z79.52 Long term (current) use of systemic steroids; Z79.899 Other long term (current) drug therapy; Z88.0 Allergy status to penicillin; Z91.041 Radiographic dye allergy status; Z88.2 Allergy status to sulfonamides; Y92.230 Patient room in hospital as the place of occurrence of the external cause
CPT/HCPCS: 36415; 70450; 71045; 71250; 74150; 74176; 80048; 80053; 83036; 83735; 84100; 84484; 85025; 85027; 85652; 86140; 86706; 86850; 86900; 86901; 86920; 87340; 90935; 93308; 93880; 96372; 96374; 99285

== ENCOUNTER → 2023-08-06 | Outpatient (CLI) | payer MEDICARE ==
--- NOTE | 2023-08-06 16:43 | US ---
EXAMINATION TYPE: US venous doppler duplex LE RT DATE OF EXAM: 08/06/2023 4:18 PM COMPARISON: NONE CLINICAL INDICATION: Male, 53 years old with history of I80.9PHLEBITIS AND THROMBOPHLEBITIS OF UNSPEC IFIED; Right leg swelling x 2 weeks. Pt had a full leg cast on right leg for 6 weeks. No hx of DVT. O n blood thinners SIDE PERFORMED: Right TECHNIQUE: The lower extremity deep venous system is examined utilizing real time linear array sonog rem[place] with graded compression, doppler sonography and color-flow sonography. VESSELS IMAGED: Common Femoral Vein Deep Femoral Vein Greater Saphenous Vein * Femoral Vein Popliteal Vein Small Saphenous Vein * Proximal Calf Veins (* superficial vessels) Right Leg: No evidence for DVT. Edema seen behind knee and calf IMPRESSION: 1. Right lower extremity ultrasound negative for deep venous thrombosis
== END | disposition home or self-care (01) ==
LOC: RADUSWWP 15:59
PROVIDERS: ATTEND Orthopaedic Surgery
DX: I80.9 Phlebitis and thrombophlebitis of unspecified site (principal)

== ENCOUNTER 2023-11-19 16:22 | Emergency (ER) | payer MEDICARE ==
[2023-11-19 16:36] VITALS: RESP 18; TEMP 98
--- NOTE | 2023-11-19 17:37 | ED ---
Recheck HPI - General Chief Complaint: Recheck/Abnormal Lab/Rx Stated Complaint: Port Clotted Time Seen by Provider: 11/19/23 16:40 Source: patient, family, RN notes reviewed Mode of arrival: ambulatory Limitations: no limitations - History of Present Illness Initial Comments: 53-year-old male presents emergency department company by his with chief compl aint of a dialysis catheter malfunction. Patient states that he was attempting to do dialysis this morning when the catheter was clogged, nurses attempted to flush with no success. Patient is denying symptoms of abdominal pain, nausea, vomiting, fevers, chills, weakness. No other acute complaints at this time. - Related Data Home Medications Medication Instructions Recorded Confirmed Levothyroxine Sodium [Synthroid] 50 mcg PO DAILY 12/18/17 06/29/23 Montelukast [Singulair] 10 mg PO HS 12/18/17 06/29/23 predniSONE 10 mg PO DAILY 04/25/21 06/29/23 Atorvastatin [Lipitor] 20 mg PO DAILY 10/15/22 06/29/23 Midodrine HCl [ProAmatine] 10 mg PO QID PRN 10/15/22 06/29/23 calcitrioL 0.25 mcg PO SUTUWETHSA 10/15/22 06/29/23 calcitrioL 0.5 mcg PO MOFR 10/15/22 06/29/23 Omeprazole [PriLOSEC] 20 mg PO PC-SUPPER 04/25/23 06/29/23 Acetaminophen Tab [Tylenol] 650 mg PO Q4HR PRN 06/23/23 06/29/23 Fludrocortisone [Florinef] 0.1 mg PO DAILY 06/23/23 06/29/23 allopurinoL 100 mg PO DAILY 06/23/23 06/29/23 Previous Rx's Medication Instructions Recorded methocarbamoL [Robaxin-750] 1,500 mg PO TID PRN 7 Days #42 tab 05/28/23 Amiodarone [Cordarone] 200 mg PO BID #60 tab 06/06/23 Metoprolol Tartrate [Lopressor] 25 mg PO BID #60 tab 06/06/23 Simethicone Chew [Mylicon Chew] 40 mg PO QID PRN #30 tab 06/06/23 HYDROcodone/APAP 5-325MG [[place] 1 - 2 tab PO Q6HR PRN #32 tab 06/25/23 5-325] Aspirin 81 mg PO DAILY #30 tab 07/06/23 Darbepoetin Martin [Aranesp] 60 mcg SQ Q7D each 07/06/23 Gabapentin [Neurontin] 100 mg PO BID #12 cap 07/06/23 Metoclopramide [Reglan] 5 mg PO TID PRN #20 tab 07/06/23 Allergies Allergy/AdvReac Type Severity Reaction Status Date / Time adhesive tape Allergy Itching Verified 11/19/23 16:36 codeine Allergy Rash/Hives Verified 11/19/23 16:36 cyclobenzaprine Allergy Rash/Hives Verified 11/19/23 16:36 [From Flexeril] diphenhydramine Allergy Anaphylaxis Verified 11/19/23 16:36 [From Benadryl] hydromorphone [From Dilaudid] Allergy Rash/Hives Verified 11/19/23 16:36 hydroxyzine Allergy Anaphylaxis Verified 11/19/23 16:36 Iodinated Contrast Media Allergy Anaphylaxis Verified 11/19/23 16:36 [Iodinated Contrast- Oral and IV Dye] pantoprazole [From Protonix] Allergy Anaphylaxis Verified 11/19/23 16:36 Penicillins Allergy Rash/Hives Verified 11/19/23 16:36 potassium chloride Allergy Rash/Hives Verified 11/19/23 16:36 pregabalin [From Lyrica] Allergy Anaphylaxis Verified 11/19/23 16:36 sevelamer Allergy Rash/Hives Verified 11/19/23 16:36 warfarin [From Coumadin] Allergy Anaphylaxis Verified 11/19/23 16:36 acetaminophen [From Vicodin] AdvReac Nausea & Verified 11/19/23 16:36 Vomiting aripiprazole [From Abilify] AdvReac Abdominal Verified 11/19/23 16:36 Pain aztreonam AdvReac Unknown Verified 11/19/23 16:36 calcitriol AdvReac Unknown Verified 11/19/23 16:36 cefadroxil AdvReac Unknown Verified 11/19/23 16:36 enalapril AdvReac Unknown Verified 11/19/23 16:36 hydrocodone [From Vicodin] AdvReac Nausea & Verified 11/19/23 16:36 Vomiting Influenza Virus Vaccines AdvReac Unknown Verified 11/19/23 16:36 levofloxacin [From Levaquin] AdvReac Abdominal Verified 11/19/23 16:36 Pain meloxicam [From Mobic] AdvReac Abdominal Verified 11/19/23 16:36 Pain morphine AdvReac Unknown Verified 11/19/23 16:36 propoxyphene AdvReac Unknown Verified 11/19/23 16:36 Sulfa (Sulfonamide AdvReac Vomiting Verified 11/19/23 16:36 Antibiotics) tramadol AdvReac no Verified 11/19/23 16:36 allergy, just does not work for him Review of Systems ROS Statement: Those systems with pertinent positive or pertinent negative responses have been documented in the HPI. ROS Other: All systems not noted in ROS Statement are negative. Past Medical History Past Medical History: Atrial Fibrillation, Dialysis, Eye Disorder, GERD/Reflux, Renal Disease, Seizure Disorder, Thyroid Disorder Additional Past Medical History / Comment(s): Recent fall with quadriceps tendon rupture. Gout. Bruises easily. 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 Kidney transplant in 1998. Hemodialysis [facility] at home. Hx anemia with blood transfusion. 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 Hx diverticulitis. Hx Shingles 02/2021. Hx approximately 7 grand mal seizures in 2021 when on dialysis, unknown etiology, none since. Has nonactive left arm dialysis graft and functioning right groin dialysis port. Frequent headaches. Low blood pressure at times. History of Any Multi-Drug Resistant Organisms: None Reported Additional Past Surgical History / Comment(s): Fistula placement, thyroidectomy, kidney transplant, toenails removed. Past Anesthesia/Blood Transfusion Reactions: No Reported Reaction Additional Past Anesthesia/Blood Transfusion Reaction / Comment(s): Blood transfusion - had no issues. Past Psychological History: No Psychological Hx Reported Smoking Status: Never smoker Past Alcohol Use History: None Reported Past Drug Use History: None Reported - Past Family History Mother Family Medical History: Fibromyalgia, Osteoarthritis (OA) Additional Family Medical History / Comment(s): Lupus Family Family Medical History: No Reported History Additional Family Medical History / Comment(s): ETOH abuse General Exam Limitations: no limitations General appearance: alert, in no apparent distress Head exam: Present: atraumatic, normocephalic, normal inspection Eye exam: Present: normal appearance, PERRL, EOMI. Absent: scleral icterus, conjunctival injection, periorbital swelling ENT exam: Present: normal exam, mucous membranes moist Neck exam: Present: normal inspection. Absent: tenderness, meningismus, lymphadenopathy Respiratory exam: Present: normal lung sounds bilaterally. Absent: respiratory distress, wheezes, rales, rhonchi, stridor Cardiovascular Exam: Present: regular rate, normal rhythm, normal heart sounds. Absent: systolic murmur, diastolic murmur, rubs, gallop, clicks GI/Abdominal exam: Present: soft, normal bowel sounds. Absent: distended, ten derness, guarding, rebound, rigid Extremities exam: Present: normal inspection, full ROM, normal capillary refill. Absent: tenderness, pedal edema, joint swelling, calf tenderness Back exam: Present: normal inspection Neurological exam: Present: alert, oriented X3, CN II-XII intact Skin exam: Present: warm, dry, intact, normal color. Absent: rash Course Vital Signs 11/19/23 11/19/23 16:32 20:31 Temperature 98 F Pulse Rate 87 59 L Respiratory 18 18 Rate Blood Pressure 84/51 105/65 O2 Sat by Pulse 95 97 Oximetry Medical Decision Making - Medical Decision Making Was pt. sent in by a medical professional or institution (JOCY Waller, CERTIFIED PHYSICIAN'S ASSISTANT, urgent care, hospital, or skilled nursing...) When possible be specific @ -Patient was advised by field service technician reports emergency department for further evaluation of clogged dialysis catheterization port Did you speak to anyone other than the patient for history (EMS, parent, family, police, friend...)? What history was obtained from this source @ -No Did you review nursing and triage notes (agree or disagree)? Why? @ -I reviewed and agree with nursing and triage notes Were old charts reviewed (outside hosp., previous admission, EMS record, old EKG, old radiological studies, urgent care reports/EKG's, skilled nursing records)? Report findings @ -No old charts were reviewed Differential Diagnosis (chest pain, altered mental status, abdominal pain women, abdominal pain men, vaginal bleeding, weakness, fever, dyspnea, syncope, headache, dizziness, GI bleed, back pain, seizure, CVA, palpatations, mental health, musculoskeletal)? @ -port catheter malfuncion/clogged EKG interpreted by me (3pts min.). @ -none X-rays interpreted by me (1pt min.). @ -None done CT interpreted by me (1pt min.). @ -None done U/S interpreted by me (1pt. min.). @ -None done What testing was considered but not performed or refused? (CT, X-rays, U/S, labs)? Why? @ -None What meds were considered but not given or refused? Why? @ -None Did you discuss the management of the patient with other professionals (professionals i.e. , PA, CERTIFIED PHYSICIAN'S ASSISTANT, lab, RT, psych nurse, social services specialist, roof mechanic, teacher, systems support officer, case coordinator)? Give summary @ -No Was smoking cessation discussed for >3mins.? @ -No Was critical care preformed (if so, how long)? @ -No Were there social determinants of health that impacted care today? How? (Homelessness, low income, unemployed, alcoholism, drug addiction, transportation, low edu. Level, literacy, decrease access to med. care, [place] [facility], rehab)? @ -No Was there de-escalation of care discussed even if they declined (Discuss DNR or withdrawal of care, Hospice)? DNR status @ -No What co-morbidities impacted this encounter? (DM, HTN, Smoking, COPD, CAD, Cancer, CVA, ARF, Chemo, Hep., AIDS, mental health diagnosis, sleep apnea, morbid obesity)? @ -None Was patient admitted / discharged? Hospital course, mention meds given and route, prescriptions, significant lab abnormalities, going to OR and other pertinent info. @ -Discharged. 53-year-old male with port catheter malfunction. tPA was administered into bilateral catheter placement and patient is discharged home in stable condition. Recommend that he undergo dialysis approximately 1 to 2 hours after medications administered. All questions answered at bedside and strict return parameters discussed, patient has verbalized understanding. Case discussed with Dr. Leslie Undiagnosed new problem with uncertain prognosis? @ -No Drug Therapy requiring intensive monitoring for toxicity (Heparin, Nitro, Insulin, Cardizem)? @ -No Were any procedures done? @ -No Diagnosis/symptom? @ -port cathether malfunction Acute, or Chronic, or Acute on Chronic? @ -acute Uncomplicated (without systemic symptoms) or Complicated (systemic symptoms)? @ -uncomplicated Side effects of treatment? @ -No Exacerbation, Progression, or Severe Exacerbation? @ -No Poses a threat to life or bodily function? How? (Chest pain, [place], [place], pneumonia, PE, COPD, DKA, ARF, appy, cholecystitis, CVA, Diverticulitis, Homicidal, Suicidal, threat to staff... and all critical care pts) @ -No Disposition Clinical Impression: Hemodialysis catheter malfunction Disposition: HOME SELF-CARE Condition: Good Additional Instructions: Return to emergency department for any new or worsening symptoms. Is patient prescribed a controlled substance at d/c from ED?: No Referrals: Mychal Jerome DO [Primary Care Provider] - 1-2 days Time of Disposition: 20:12
[2023-11-19] MEDS: ALTEPLASE 2 MG VIAL (CATHFLO) IV STA ×2 (19:11→19:12)
[2023-11-19 20:40] VITALS: BP 105/65; PULSE 59
== END 2023-11-19 20:31 | disposition home or self-care (01) ==
LOC: EC 16:22
DX: Z00.00 Encounter for general adult medical examination without abnormal findings
CPT/HCPCS: 37195; 99283

== ENCOUNTER 2023-11-28 18:10 | Emergency (ER) | payer MEDICARE ==
[2023-11-28 18:30] VITALS: TEMP 97.8
[2023-11-28 20:02] LABS: Basophils % (A) 0 %; Eosinophils % (A) 1 %; HCT 40.7 % (39.0-53.0); HGB 12.6 gm/dL (13.0-17.5); Hypochromasia Moderate; Lymphocytes # (A) 1.1 k/uL (1.0-4.8); Lymphocytes % (A) 18 %; MCH 31.6 pg (25.0-35.0); MCV 101.9 fL (80.0-100.0); Macrocytosis Slight; Mean Platelet Volume 7.5; Monocytes # (A) 0.5 k/uL (0-1.0); Monocytes % (A) 7 %; Neutrophils # (A) 4.4 k/uL (1.3-7.7); Neutrophils % (A) 72 %; Platelet Count 183 k/uL (150-450); RBC 3.99 m/uL (4.30-5.90); RDW 15.2 % (11.5-15.5); WBC 6.1 k/uL (3.8-10.6)
[2023-11-28 20:24] LABS: ALT 14 U/L (4-49); AST 22 U/L (17-59); African American GFR (CKD) 7 (>60 ml/min/1.73 sqM); Albumin 4.2 g/dL (3.5-5.0); Alkaline Phosphatase 66 U/L (38-126); Anion Gap 13 mmol/L; Blood Urea Nitrogen 52 mg/dL (9-20); Calcium 9.7 mg/dL (8.4-10.2); Carbon Dioxide 27 mmol/L (22-30); Chloride 97 mmol/L (98-107); Glucose 106 mg/dL (74-99); Non-African American GFR(CKD) 6 (>60 ml/min/1.73 sqM); Potassium 4.2 mmol/L (3.5-5.1); Sodium 137 mmol/L (137-145); Total Bilirubin 0.6 mg/dL (0.2-1.3); Total Protein 6.4 g/dL (6.3-8.2)
--- NOTE | 2023-11-28 20:52 | ED ---
General Adult HPI - General Chief complaint: Wound/Laceration Stated complaint: Dyalisis port comp Time Seen by Provider: 11/28/23 18:32 Source: patient Mode of arrival: ambulatory Limitations: no limitations - History of Present Illness Initial comments: 53-year-old male presenting with chief complaint of bleeding from his dialysis catheter. Patient has a right sided groin vascular access for dialysis which he receives Friday and Friday. While trying to do dialysis today the site started bleeding. Patient states that he is currently following Dr. Keys because the catheter was not previously installed correctly by another surgeon and he will need correction of this issue. He is waiting for a surgery date. He is not having any pain. No weakness. No fevers. - Related Data Home Medications Medication Instructions Recorded Confirmed Levothyroxine Sodium [Synthroid] 50 mcg PO DAILY 12/18/17 06/29/23 Montelukast [Singulair] 10 mg PO HS 12/18/17 06/29/23 predniSONE 10 mg PO DAILY 04/25/21 06/29/23 Atorvastatin [Lipitor] 20 mg PO DAILY 10/15/22 06/29/23 Midodrine HCl [ProAmatine] 10 mg PO QID PRN 10/15/22 06/29/23 calcitrioL 0.25 mcg PO SUTUWETHSA 10/15/22 06/29/23 calcitrioL 0.5 mcg PO MOFR 10/15/22 06/29/23 Omeprazole [PriLOSEC] 20 mg PO PC-SUPPER 04/25/23 06/29/23 Acetaminophen Tab [Tylenol] 650 mg PO Q4HR PRN 06/23/23 06/29/23 Fludrocortisone [Florinef] 0.1 mg PO DAILY 06/23/23 06/29/23 allopurinoL 100 mg PO DAILY 06/23/23 06/29/23 Previous Rx's Medication Instructions Recorded methocarbamoL [Robaxin-750] 1,500 mg PO TID PRN 7 Days #42 tab 05/28/23 Amiodarone [Cordarone] 200 mg PO BID #60 tab 06/06/23 Metoprolol Tartrate [Lopressor] 25 mg PO BID #60 tab 06/06/23 Simethicone Chew [Mylicon Chew] 40 mg PO QID PRN #30 tab 06/06/23 HYDROcodone/APAP 5-325MG [[place] 1 - 2 tab PO Q6HR PRN #32 tab 06/25/23 5-325] Aspirin 81 mg PO DAILY #30 tab 07/06/23 Darbepoetin Martin [Aranesp] 60 mcg SQ Q7D each 07/06/23 Gabapentin [Neurontin] 100 mg PO BID #12 cap 07/06/23 Metoclopramide [Reglan] 5 mg PO TID PRN #20 tab 07/06/23 Allergies Allergy/AdvReac Type Severity Reaction Status Date / Time adhesive tape Allergy Itching Verified 11/19/23 16:36 codeine Allergy Rash/Hives Verified 11/19/23 16:36 cyclobenzaprine Allergy Rash/Hives Verified 11/19/23 16:36 [From Flexeril] diphenhydramine Allergy Anaphylaxis Verified 11/19/23 16:36 [From Benadryl] hydromorphone [From Dilaudid] Allergy Rash/Hives Verified 11/19/23 16:36 hydroxyzine Allergy Anaphylaxis Verified 11/19/23 16:36 Iodinated Contrast Media Allergy Anaphylaxis Verified 11/19/23 16:36 [Iodinated Contrast- Oral and IV Dye] pantoprazole [From Protonix] Allergy Anaphylaxis Verified 11/19/23 16:36 Penicillins Allergy Rash/Hives Verified 11/19/23 16:36 potassium chloride Allergy Rash/Hives Verified 11/19/23 16:36 pregabalin [From Lyrica] Allergy Anaphylaxis Verified 11/19/23 16:36 sevelamer Allergy Rash/Hives Verified 11/19/23 16:36 warfarin [From Coumadin] Allergy Anaphylaxis Verified 11/19/23 16:36 acetaminophen [From Vicodin] AdvReac Nausea & Verified 11/19/23 16:36 Vomiting aripiprazole [From Abilify] AdvReac Abdominal Verified 11/19/23 16:36 Pain aztreonam AdvReac Unknown Verified 11/19/23 16:36 calcitriol AdvReac Unknown Verified 11/19/23 16:36 cefadroxil AdvReac Unknown Verified 11/19/23 16:36 enalapril AdvReac Unknown Verified 11/19/23 16:36 hydrocodone [From Vicodin] AdvReac Nausea & Verified 11/19/23 16:36 Vomiting Influenza Virus Vaccines AdvReac Unknown Verified 11/19/23 16:36 levofloxacin [From Levaquin] AdvReac Abdominal Verified 11/19/23 16:36 Pain meloxicam [From Mobic] AdvReac Abdominal Verified 11/19/23 16:36 Pain morphine AdvReac Unknown Verified 11/19/23 16:36 propoxyphene AdvReac Unknown Verified 11/19/23 16:36 Sulfa (Sulfonamide AdvReac Vomiting Verified 11/19/23 16:36 Antibiotics) tramadol AdvReac no Verified 11/19/23 16:36 allergy, just does not work for him Review of Systems ROS Statement: Those systems with pertinent positive or pertinent negative responses have been documented in the HPI. ROS Other: All systems not noted in ROS Statement are negative. Past Medical History Past Medical History: Atrial Fibrillation, Dialysis, Eye Disorder, GERD/Reflux, Renal Disease, Seizure Disorder, Thyroid Disorder Additional Past Medical History / Comment(s): Recent fall with quadriceps tendon rupture. Gout. Bruises easily. 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 Kidney transplant in 1998. Hemodialysis [facility] at home. Hx anemia with blood transfusion. 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 Hx diverticulitis. Hx Shingles 02/2021. Hx approximately 7 grand mal seizures in 2021 when on dialysis, unknown etiology, none since. Has nonactive left arm dialysis graft and functioning right groin dialysis port. Frequent headaches. Low blood pressure at times. History of Any Multi-Drug Resistant Organisms: None Reported Additional Past Surgical History / Comment(s): Fistula placement, thyroidectomy, kidney transplant, toenails removed. Past Anesthesia/Blood Transfusion Reactions: No Reported Reaction Additional Past Anesthesia/Blood Transfusion Reaction / Comment(s): Blood transfusion - had no issues. Past Psychological History: No Psychological Hx Reported Smoking Status: Never smoker Past Alcohol Use History: None Reported Past Drug Use History: None Reported - Past Family History Mother Family Medical History: Fibromyalgia, Osteoarthritis (OA) Additional Family Medical History / Comment(s): Lupus Family Family Medical History: No Reported History Additional Family Medical History / Comment(s): ETOH abuse General Exam Limitations: no limitations General appearance: alert, in no apparent distress Head exam: Present: atraumatic, normocephalic, normal inspection Eye exam: Present: normal appearance, EOMI Neck exam: Present: normal inspection. Absent: meningismus Respiratory exam: Absent: respiratory distress Cardiovascular Exam: Present: regular rate Neurological exam: Present: alert, oriented X3 Psychiatric exam: Present: normal affect, normal mood Skin exam: Present: other (Dialysis catheter in place in the right groin, dried blood around the area no active bleeding) Course Vital Signs 11/28/23 11/28/23 18:28 21:00 Temperature 97.8 F Pulse Rate 94 83 Respiratory 16 18 Rate Blood Pressure 100/47 95/62 O2 Sat by Pulse 97 99 Oximetry Medical Decision Making - Medical Decision Making Was pt. sent in by a medical professional or institution (JOCY Waller, ENAMEL BURNER, urgent care, hospital, or fci...) When possible be specific @ -No Did you speak to anyone other than the patient for history (EMS, parent, family, police, friend...)? What history was obtained from this source @ -No Did you review nursing and triage notes (agree or disagree)? Why? @ -I reviewed and agree with nursing and triage notes Were old charts reviewed (outside hosp., previous admission, EMS record, old E KG, old radiological studies, urgent care reports/EKG's, fci records)? Report findings @ -No old charts were reviewed Differential Diagnosis (chest pain, altered mental status, abdominal pain women, abdominal pain men, vaginal bleeding, weakness, fever, dyspnea, syncope, headache, dizziness, GI bleed, back pain, seizure, CVA, palpatations, mental health, musculoskeletal)? @ -Differential includes clotting disorder, structural abnormality, trauma, this is not an all-inclusive list EKG interpreted by me (3pts min.). @ -As above X-rays interpreted by me (1pt min.). @ -None done CT interpreted by me (1pt min.). @ -None done U/S interpreted by me (1pt. min.). @ -None done What testing was considered but not performed or refused? (CT, X-rays, U/S, labs)? Why? @ -None What meds were considered but not given or refused? Why? @ -None Did you discuss the management of the patient with other professionals (professionals i.e. , PA, ENAMEL BURNER, lab, RT, psych nurse, social and political studies professor, superintendent horticulture, teacher, police liaison officer, correctional counselor/case manager)? Give summary @ -No Was smoking cessation discussed for >3mins.? @ -No Was critical care preformed (if so, how long)? @ -No Were there social determinants of health that impacted care today? How? (Homelessness, low income, unemployed, alcoholism, drug addiction, transportation, low edu. Level, literacy, decrease access to med. care, intermediate, rehab)? @ -No Was there de-escalation of care discussed even if they declined (Discuss DNR or withdrawal of care, Hospice)? DNR status @ -No What co-morbidities impacted this encounter? (DM, HTN, Smoking, COPD, CAD, Cancer, CVA, ARF, Chemo, Hep., AIDS, mental health diagnosis, sleep apnea, morbid obesity)? @ -None Was patient admitted / discharged? Hospital course, mention meds given and route, prescriptions, significant lab abnormalities, going to OR and other pertinent info. @ -53-year-old male presenting with chief complaint of bleeding from his dialysis catheter in the right groin. On exam the bandages removed and the bleeding has stopped. Labs are obtained, BUN and creatinine are elevated as expected. Hemoglobin is improved from baseline. Patient is instructed to follow-up with his surgeon. Discharged. Follow-up with PCP. Report back to ER with any new or worsening symptoms. Discussed return parameters and answered all questions. Patient conveyed verbal understanding and agreed to the plan. I discussed this case in detail with my attending Dr. Ralph Undiagnosed new problem with uncertain prognosis? @ -No Drug Therapy requiring intensive monitoring for toxicity (Heparin, Nitro, Insulin, Cardizem)? @ -No Were any procedures done? @ -No Diagnosis/symptom? @ -Bleeding from dialysis catheter site Acute, or Chronic, or Acute on Chronic? @ -Acute Uncomplicated (without systemic symptoms) or Complicated (systemic symptoms)? @ -Uncomplicated Side effects of treatment? @ -No Exacerbation, Progression, or Severe Exacerbation? @ -No Poses a threat to life or bodily function? How? (Chest pain, [place], [place], pneumonia, PE, COPD, DKA, ARF, appy, cholecystitis, CVA, Diverticulitis, Homicidal, Suicidal, threat to staff... and all critical care pts) @ -No immediate threat - Lab Data Result diagrams: 11/28/23 19:57 11/28/23 19:57 Lab Results 11/28/23 11/28/23 Range/Units 19:57 19:57 WBC 6.1 (3.8-10.6) k/uL RBC 3.99 L (4.30-5.90) m/uL Hgb 12.6 L (13.0-17.5) gm/dL Hct 40.7 (39.0-53.0) % MCV 101.9 H (80.0-100.0) fL MCH 31.6 (25.0-35.0) pg MCHC 31.0 (31.0-37.0) g/dL RDW 15.2 (11.5-15.5) % Plt Count 183 (150-450) k/uL MPV 7.5 Neutrophils % 72 % Lymphocytes % 18 % Monocytes % 7 % Eosinophils % 1 % Basophils % 0 % Neutrophils # 4.4 (1.3-7.7) k/uL Lymphocytes # 1.1 (1.0-4.8) k/uL Monocytes # 0.5 (0-1.0) k/uL Eosinophils # 0.0 (0-0.7) k/uL Basophils # 0.0 (0-0.2) k/uL Hypochromasia Moderate Macrocytosis Slight Sodium 137 (137-145) mmol/L Potassium 4.2 (3.5-5.1) mmol/L Chloride 97 L (98-107) mmol/L Carbon Dioxide 27 (22-30) mmol/L Anion Gap 13 mmol/L BUN 52 H (9-20) mg/dL Creatinine 9.00 H* (0.66-1.25) mg/dL Est GFR (CKD-EPI)AfAm 7 (>60 ml/min/1.73 sqM) Est GFR (CKD-EPI)NonAf 6 (>60 ml/min/1.73 sqM) Glucose 106 H (74-99) mg/dL Calcium 9.7 (8.4-10.2) mg/dL Total Bilirubin 0.6 (0.2-1.3) mg/dL AST 22 (17-59) U/L ALT 14 (4-49) U/L Alkaline Phosphatase 66 (38-126) U/L Total Protein 6.4 (6.3-8.2) g/dL Albumin 4.2 (3.5-5.0) g/dL Disposition Clinical Impression: Encounter for dialysis catheter care Disposition: HOME SELF-CARE Condition: Good Additional Instructions: Follow-up with your PCP and surgeon. Report back to ER with any new or worsening symptoms. Is patient prescribed a controlled substance at d/c from ED?: No Referrals: Nonstaff,Physician [Primary Care Provider] - 1-2 days Christiano Keys DO [STAFF PHYSICIAN] - 1-2 days Time of Disposition: 20:52
[2023-11-28 21:01] VITALS: BP 95/62; PULSE 83; RESP 18
== END 2023-11-28 21:01 | disposition home or self-care (01) ==
LOC: EC 18:10
CPT/HCPCS: 36415; 80053; 85025; 99283

== ENCOUNTER 2023-12-01 07:55 | Inpatient (IN) | payer MEDICARE ==
[2023-12-01 08:37] LABS: Basophils % (A) 0 %; Eosinophils # (A) 0.1 k/uL (0-0.7); Eosinophils % (A) 1 %; HCT 33.9 % (39.0-53.0); HGB 10.6 gm/dL (13.0-17.5); Hypochromasia Slight; Lymphocytes # (A) 0.8 k/uL (1.0-4.8); Lymphocytes % (A) 19 %; MCH 31.8 pg (25.0-35.0); MCHC 31.1 g/dL (31.0-37.0); MCV 102.2 fL (80.0-100.0); Macrocytosis Slight; Monocytes # (A) 0.3 k/uL (0-1.0); Monocytes % (A) 6 %; Neutrophils % (A) 72 %; Platelet Count 163 k/uL (150-450); RBC 3.32 m/uL (4.30-5.90); RDW 15.5 % (11.5-15.5); WBC 4.2 k/uL (3.8-10.6)
[2023-12-01 08:55] LABS: ALT 11 U/L (4-49); Anion Gap 21 mmol/L; Blood Urea Nitrogen 92 mg/dL (9-20); Calcium 10.7 mg/dL (8.4-10.2); Carbon Dioxide 19 mmol/L (22-30); Chloride 103 mmol/L (98-107); Glucose 77 mg/dL (74-99); Sodium 143 mmol/L (137-145); Total Bilirubin 0.8 mg/dL (0.2-1.3); Total Protein 5.9 g/dL (6.3-8.2)
[2023-12-01 08:57] LABS: INR 0.9 (<1.2); Partial Thromboplastin Time 24.1 sec (22.0-30.0); Prothrombin Time 10.2 sec (10.0-12.5)
[2023-12-01 09:00] LABS: African American GFR (CKD) 4 (>60 ml/min/1.73 sqM); Non-African American GFR(CKD) 3 (>60 ml/min/1.73 sqM)
[2023-12-01 09:13] LABS: Phosphorus 8.3 mg/dL (2.5-4.5); Potassium 4.7 mmol/L (3.5-5.1)
[2023-12-01 09:14] LABS: AST 20 U/L (17-59); Alkaline Phosphatase 48 U/L (38-126)
[2023-12-01] MEDS ORDERED: ACETAMINOPHEN TAB 325 MG TAB PO PRN (09:52)
[2023-12-01] MEDS ORDERED: NALOXONE 0.4 MG/ML 1 ML VIAL IV PRN (09:52)
--- NOTE | 2023-12-01 09:52 | ED ---
General Adult HPI - General Chief complaint: Recheck/Abnormal Lab/Rx Stated complaint: Cath issue Time Seen by Provider: 12/01/23 08:09 Source: patient, family, RN notes reviewed Mode of arrival: ambulatory Limitations: no limitations - History of Present Illness Initial comments: 53-year-old male presents emergency department chief complaint of dialysis catheter issues. Patient states started hemorrhaging on Friday when attempting to run 30 minutes into his dialysis. Patient is not unable to see you have dialysis since Friday in which he goes Saturdays missed to going on his third missed dialysis. Patient states he has had significant weight gain. Patient sees Dr. norman had Dr. Salazar I will put a permacath in his left groin 3 weeks ago. He has had issues ever since including catheter being clotted. He denies any chest pain. - Related Data Home Medications Medication Instructions Recorded Confirmed Levothyroxine Sodium [Synthroid] 50 mcg PO DAILY 12/18/17 12/01/23 Montelukast [Singulair] 10 mg PO HS 12/18/17 12/01/23 predniSONE 10 mg PO DAILY 04/25/21 12/01/23 Atorvastatin [Lipitor] 20 mg PO DAILY 10/15/22 12/01/23 Midodrine HCl [ProAmatine] 10 mg PO QID PRN 10/15/22 12/01/23 calcitrioL 0.25 mcg PO SUTUWETHSA 10/15/22 12/01/23 calcitrioL 0.5 mcg PO MOFR 10/15/22 12/01/23 Omeprazole [PriLOSEC] 20 mg PO HS 04/25/23 12/01/23 allopurinoL 100 mg PO DAILY 06/23/23 12/01/23 Metoprolol Tartrate [Lopressor] 25 mg PO BID PRN 12/01/23 12/01/23 Previous Rx's Medication Instructions Recorded Aspirin 81 mg PO DAILY #30 tab 07/06/23 Allergies Allergy/AdvReac Type Severity Reaction Status Date / Time adhesive tape Allergy Itching Verified 12/01/23 08:07 codeine Allergy Rash/Hives Verified 12/01/23 08:07 cyclobenzaprine Allergy Rash/Hives Verified 12/01/23 08:07 [From Flexeril] diphenhydramine Allergy Anaphylaxis Verified 12/01/23 08:07 [From Benadryl] hydromorphone [From Dilaudid] Allergy Rash/Hives Verified 12/01/23 08:07 hydroxyzine Allergy Anaphylaxis Verified 12/01/23 08:07 Iodinated Contrast Media Allergy Anaphylaxis Verified 12/01/23 08:07 [Iodinated Contrast- Oral and IV Dye] pantoprazole [From Protonix] Allergy Anaphylaxis Verified 12/01/23 08:07 Penicillins Allergy Rash/Hives Verified 12/01/23 08:07 potassium chloride Allergy Rash/Hives Verified 12/01/23 08:07 pregabalin [From Lyrica] Allergy Anaphylaxis Verified 12/01/23 08:07 sevelamer Allergy Rash/Hives Verified 12/01/23 08:07 warfarin [From Coumadin] Allergy Anaphylaxis Verified 12/01/23 08:07 acetaminophen [From Vicodin] AdvReac Nausea & Verified 12/01/23 08:07 Vomiting aripiprazole [From Abilify] AdvReac Abdominal Verified 12/01/23 08:07 Pain aztreonam AdvReac Unknown Verified 12/01/23 08:07 calcitriol AdvReac Unknown Verified 12/01/23 08:07 cefadroxil AdvReac Unknown Verified 12/01/23 08:07 enalapril AdvReac Unknown Verified 12/01/23 08:07 hydrocodone [From Vicodin] AdvReac Nausea & Verified 12/01/23 08:07 Vomiting Influenza Virus Vaccines AdvReac Unknown Verified 12/01/23 08:07 levofloxacin [From Levaquin] AdvReac Abdominal Verified 12/01/23 08:07 Pain meloxicam [From Mobic] AdvReac Abdominal Verified 12/01/23 08:07 Pain morphine AdvReac Unknown Verified 12/01/23 08:07 propoxyphene AdvReac Unknown Verified 12/01/23 08:07 Sulfa (Sulfonamide AdvReac Vomiting Verified 12/01/23 08:07 Antibiotics) tramadol AdvReac no Verified 12/01/23 08:07 allergy, just does not work for him Review of Systems ROS Statement: Those systems with pertinent positive or pertinent negative responses have been documented in the HPI. ROS Other: All systems not noted in ROS Statement are negative. Past Medical History Past Medical History: Atrial Fibrillation, Dialysis, Eye Disorder, GERD/Reflux, Renal Disease, Seizure Disorder, Thyroid Disorder Additional Past Medical History / Comment(s): Recent fall with quadriceps tendon rupture. Gout. Bruises easily. 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 Kidney transplant in 1998. Hemodialysis [facility] at home. Hx anemia with blood transfusion. 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 Hx diverticulitis. Hx Shingles 02/2021. Hx approximately 7 grand mal seizures in 2021 when on dialysis, unknown etiology, none since. Has nonactive left arm dialysis graft and functioning right groin dialysis port. Frequent headaches. Low blood pressure at times. History of Any Multi-Drug Resistant Organisms: None Reported Additional Past Surgical History / Comment(s): Fistula placement, thyroidectomy, kidney transplant, toenails removed. Past Anesthesia/Blood Transfusion Reactions: No Reported Reaction Additional Past Anesthesia/Blood Transfusion Reaction / Comment(s): Blood transfusion - had no issues. Past Psychological History: No Psychological Hx Reported Smoking Status: Never smoker Past Alcohol Use History: None Reported Past Drug Use History: None Reported - Past Family History Mother Family Medical History: Fibromyalgia, Osteoarthritis (OA) Additional Family Medical History / Comment(s): Lupus Family Family Medical History: No Reported History Additional Family Medical History / Comment(s): ETOH abuse General Exam Limitations: no limitations General appearance: alert, in no apparent distress Head exam: Present: atraumatic, normocephalic, normal inspection ENT exam: Present: normal exam, mucous membranes moist Neck exam: Present: normal inspection. Absent: tenderness, meningismus, lymphadenopathy Respiratory exam: Present: normal lung sounds bilaterally. Absent: respiratory distress, wheezes, rales, rhonchi, stridor Cardiovascular Exam: Present: regular rate, normal rhythm, normal heart sounds. Absent: systolic murmur, diastolic murmur, rubs, gallop, clicks GI/Abdominal exam: Present: soft, normal bowel sounds. Absent: distended, tenderness, guarding, rebound, rigid Extremities exam: Present: other (Permacath left groin no active bleeding) Course Vital Signs 12/01/23 12/01/23 08:05 09:46 Temperature 98 F Pulse Rate 94 58 L Respiratory 18 18 Rate Blood Pressure 142/86 135/97 O2 Sat by Pulse 97 98 Oximetry Medical Decision Making - Medical Decision Making Was pt. sent in by a medical professional or institution (JOCY Waller, RECREATION CENTER DIRECTOR, urgent care, hospital, or retirement...) When possible be specific @ -No Did you speak to anyone other than the patient for history (EMS, parent, family, police, friend...)? What history was obtained from this source @ -No Did you review nursing and triage notes (agree or disagree)? Why? @ -I reviewed and agree with nursing and triage notes Were old charts reviewed (outside hosp., previous admission, EMS record, old EKG, old radiological studies, urgent care reports/EKG's, retirement records)? Report findings @ -No old charts were reviewed Differential Diagnosis (chest pain, altered mental status, abdominal pain women, abdominal pain men, vaginal bleeding, weakness, fever, dyspnea, syncope, headache, dizziness, GI bleed, back pain, seizure, CVA, palpatations, mental hea lth, musculoskeletal)? @ -Permacath complications, ESRD, hyperkalemia, dyspnea, pulmonary edema EKG interpreted by me (3pts min.). @ -None X-rays interpreted by me (1pt min.). @ -None done CT interpreted by me (1pt min.). @ -None done U/S interpreted by me (1pt. min.). @ -None done What testing was considered but not performed or refused? (CT, X-rays, U/S, labs)? Why? @ -None What meds were considered but not given or refused? Why? @ -None Did you discuss the management of the patient with other professionals (professionals i.e. JOCY Waller, RECREATION CENTER DIRECTOR, lab, RT, psych nurse, director of social media marketing, commercial technician, teacher, cavalry officer, welfare case worker)? Give summary @ -Vascular regarding permacath, Dr. Rose for admission Was smoking cessation discussed for >3mins.? @ -No Was critical care preformed (if so, how long)? @ -No Were there social determinants of health that impacted care today? How? (Homelessness, low income, unemployed, alcoholism, drug addiction, transportation, low edu. Level, literacy, decrease access to med. care, skilled nursing, rehab)? @ -No Was there de-escalation of care discussed even if they declined (Discuss DNR or withdrawal of care, Hospice)? DNR status @ -No What co-morbidities impacted this encounter? (DM, HTN, Smoking, COPD, CAD, Cancer, CVA, ARF, Chemo, Hep., AIDS, mental health diagnosis, sleep apnea, morbid obesity)? @ -Stage renal disease on dialysis Was patient admitted / discharged? Hospital course, mention meds given and route, prescriptions, significant lab abnormalities, going to OR and other pertinent info. @ -Admitted patient permacath report is not functioning properly he does have increasing bleeding unable to have dialysis has missed 3 days. Patient will be admitted for vascular and nephrology evaluation Undiagnosed new problem with uncertain prognosis? @ -No Drug Therapy requiring intensive monitoring for toxicity (Heparin, Nitro, Insulin, Cardizem)? @ -No Were any procedures done? @ -No Diagnosis/symptom? @ -End stage renal disease on dialysis, PermCath complications Acute, or Chronic, or Acute on Chronic? @ -Acute Uncomplicated (without systemic symptoms) or Complicated (systemic symptoms)? @ -Complicated Side effects of treatment? @ -No Exacerbation, Progression, or Severe Exacerbation? @ -No Poses a threat to life or bodily function? How? (Chest pain, USA, [place], pneumonia, PE, COPD, DKA, ARF, appy, cholecystitis, CVA, Diverticulitis, Homicidal, Sanna cidal, threat to staff... and all critical care pts) @ -Yes renal failure causing hyperkalemia and dysrhythmia - Lab Data Result diagrams: 12/01/23 08:29 12/01/23 08:29 Lab Results 12/01/23 12/01/23 12/01/23 Range/Units 08:29 08:29 08:29 WBC 4.2 (3.8-10.6) k/uL RBC 3.32 L (4.30-5.90) m/uL Hgb 10.6 L (13.0-17.5) gm/dL Hct 33.9 L (39.0-53.0) % MCV 102.2 H (80.0-100.0) fL MCH 31.8 (25.0-35.0) pg MCHC 31.1 (31.0-37.0) g/dL RDW 15.5 (11.5-15.5) % Plt Count 163 (150-450) k/uL MPV 7.0 Neutrophils % 72 % Lymphocytes % 19 % Monocytes % 6 % Eosinophils % 1 % Basophils % 0 % Neutrophils # 3.0 (1.3-7.7) k/uL Lymphocytes # 0.8 L (1.0-4.8) k/uL Monocytes # 0.3 (0-1.0) k/uL Eosinophils # 0.1 (0-0.7) k/uL Basophils # 0.0 (0-0.2) k/uL Hypochromasia Slight Macrocytosis Slight PT 10.2 (10.0-12.5) sec INR 0.9 (<1.2) APTT 24.1 (22.0-30.0) sec Sodium 143 (137-145) mmol/L Potassium 4.7 (3.5-5.1) mmol/L Chloride 103 (98-107) mmol/L Carbon Dioxide 19 L (22-30) mmol/L Anion Gap 21 mmol/L BUN 92 H (9-20) mg/dL Creatinine 14.55 H* (0.66-1.25) mg/dL Est GFR (CKD-EPI)AfAm 4 (>60 ml/min/1.73 sqM) Est GFR (CKD-EPI)NonAf 3 (>60 ml/min/1.73 sqM) Glucose 77 (74-99) mg/dL Calcium 10.7 H (8.4-10.2) mg/dL Phosphorus 8.3 H (2.5-4.5) mg/dL Magnesium 2.0 (1.6-2.3) mg/dL Total Bilirubin 0.8 (0.2-1.3) mg/dL AST 20 (17-59) U/L ALT 11 (4-49) U/L Alkaline Phosphatase 48 (38-126) U/L Total Protein 5.9 L (6.3-8.2) g/dL Albumin 4.0 (3.5-5.0) g/dL Disposition Clinical Impression: ESRD (end stage renal disease) on dialysis, Dialysis catheter clot or failure Disposition: ADMITTED IP TO THIS [facility] Condition: Fair Time of Disposition: 09:52
[2023-12-01] MEDS ORDERED: MIDODRINE 5 MG TAB PO PRN (10:15)
[2023-12-01] MEDS ORDERED: METOPROLOL TARTRATE 25 MG TAB PO PRN (10:15)
--- NOTE | 2023-12-01 12:21 | P.NPCON ---
History of Present Illness - Reason for Consult end stage renal disease - History of Present Illness patient is a 59-year-old male with end-stage renal disease on home hemodialysis. He is admitted to the hospital with malfunctioning dialysis catheter. Patient has not had hemodialysis for 3 days. There has been bleeding noted from the insertion site during dialysis. Vascular surgery has been consulted. This catheter was placed about 3 weeks ago in the left femoral vein. Patient complains of shortness of breath. no acute respiratory distress noted. O2 sats 98% on room air. potassium was 4.7. Hemoglobin was 10.6 and serum creatinine at 14.5. Review of Systems as per HPI Past Medical History Past Medical History: Atrial Fibrillation, Dialysis, Eye Disorder, GERD/Reflux, Renal Disease, Seizure Disorder, Thyroid Disorder Additional Past Medical History / Comment(s): Recent fall with quadriceps tendon rupture. Gout. Bruises easily. 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 Kidney transplant in 1998. Hemodialysis [facility] at home. Hx anemia with blood transfusion. 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 Hx diverticulitis. Hx Shingles 02/2021. Hx approximately 7 grand mal seizures in 2021 when on dialysis, unknown etiology, none since. Has nonactive left arm dialysis graft and functioning right groin dialysis port. Frequent headaches. Low blood pressure at times. History of Any Multi-Drug Resistant Organisms: None Reported Additional Past Surgical History / Comment(s): Fistula placement, thyroidectomy, kidney transplant, toenails removed. Past Anesthesia/Blood Transfusion Reactions: No Reported Reaction Additional Past Anesthesia/Blood Transfusion Reaction / Comment(s): Blood transfusion - had no issues. Past Psychological History: No Psychological Hx Reported Smoking Status: Never smoker Past Alcohol Use History: None Reported Past Drug Use History: None Reported - Past Family History Mother Family Medical History: Fibromyalgia, Osteoarthritis (OA) Additional Family Medical History / Comment(s): Lupus Family Family Medical History: No Reported History Additional Family Medical History / Comment(s): ETOH abuse Medications and Allergies Home Medications Medication Instructions Recorded Confirmed Type Levothyroxine Sodium [Synthroid] 50 mcg PO DAILY 12/18/17 12/01/23 History Montelukast [Singulair] 10 mg PO HS 12/18/17 12/01/23 History predniSONE 10 mg PO DAILY 04/25/21 12/01/23 History Atorvastatin [Lipitor] 20 mg PO DAILY 10/15/22 12/01/23 History Midodrine HCl [ProAmatine] 10 mg PO QID PRN 10/15/22 12/01/23 History calcitrioL 0.25 mcg PO SUTUWETHSA 10/15/22 12/01/23 History calcitrioL 0.5 mcg PO MOFR 10/15/22 12/01/23 History Omeprazole [PriLOSEC] 20 mg PO HS 04/25/23 12/01/23 History allopurinoL 100 mg PO DAILY 06/23/23 12/01/23 History Aspirin 81 mg PO DAILY #30 tab 07/06/23 12/01/23 Rx Metoprolol Tartrate [Lopressor] 25 mg PO BID PRN 12/01/23 12/01/23 History Allergies Allergy/AdvReac Type Severity Reaction Status Date / Time adhesive tape Allergy Itching Verified 12/01/23 08:07 codeine Allergy Rash/Hives Verified 12/01/23 08:07 cyclobenzaprine Allergy Rash/Hives Verified 12/01/23 08:07 [From Flexeril] diphenhydramine Allergy Anaphylaxis Verified 12/01/23 08:07 [From Benadryl] hydromorphone [From Dilaudid] Allergy Rash/Hives Verified 12/01/23 08:07 hydroxyzine Allergy Anaphylaxis Verified 12/01/23 08:07 Iodinated Contrast Media Allergy Anaphylaxis Verified 12/01/23 08:07 [Iodinated Contrast- Oral and IV Dye] pantoprazole [From Protonix] Allergy Anaphylaxis Verified 12/01/23 08:07 Penicillins Allergy Rash/Hives Verified 12/01/23 08:07 potassium chloride Allergy Rash/Hives Verified 12/01/23 08:07 pregabalin [From Lyrica] Allergy Anaphylaxis Verified 12/01/23 08:07 sevelamer Allergy Rash/Hives Verified 12/01/23 08:07 warfarin [From Coumadin] Allergy Anaphylaxis Verified 12/01/23 08:07 acetaminophen [From Vicodin] AdvReac Nausea & Verified 12/01/23 08:07 Vomiting aripiprazole [From Abilify] AdvReac Abdominal Verified 12/01/23 08:07 Pain aztreonam AdvReac Unknown Verified 12/01/23 08:07 calcitriol AdvReac Unknown Verified 12/01/23 08:07 cefadroxil AdvReac Unknown Verified 12/01/23 08:07 enalapril AdvReac Unknown Verified 12/01/23 08:07 hydrocodone [From Vicodin] AdvReac Nausea & Verified 12/01/23 08:07 Vomiting Influenza Virus Vaccines AdvReac Unknown Verified 12/01/23 08:07 levofloxacin [From Levaquin] AdvReac Abdominal Verified 12/01/23 08:07 Pain meloxicam [From Mobic] AdvReac Abdominal Verified 12/01/23 08:07 Pain morphine AdvReac Unknown Verified 12/01/23 08:07 propoxyphene AdvReac Unknown Verified 12/01/23 08:07 Sulfa (Sulfonamide AdvReac Vomiting Verified 12/01/23 08:07 Antibiotics) tramadol AdvReac no Verified 12/01/23 08:07 allergy, just does not work for him Physical Exam Vitals: Vital Signs Temp Pulse Resp BP Pulse Ox 12/01/23 09:46 58 L 18 135/97 98 12/01/23 08:05 98 F 94 18 142/86 97 Intake and Output 11/30/23 12/01/23 12/01/23 22:59 06:59 14:59 Other: Weight 81.647 kg patient is awake, comfortable, no acute distress. Examination of the heart S1 and S2 with systolic murmur Examination of the lungs decreased breath sounds at the bases Abdomen is soft nontender Examination of lower extremity shows edema 1+ No bleeding noted from left femoral catheter. [employer]DER exam grossly intact Results - Lab Results Most recent lab results Calcium 10.7 mg/dL (8.4-10.2) H 12/01/23 08:29 Phosphorus 8.3 mg/dL (2.5-4.5) H 12/01/23 08:29 Magnesium 2.0 mg/dL (1.6-2.3) 12/01/23 08:29 12/01/23 08:29 12/01/23 08:29 Assessment and Plan Assessment: 1. End-stage renal disease on home hemodialysis 2. Malfunctioning left femoral tunneled dialysis catheter. 3. Volume overload 4. CK D mineral bone disorder Plan: hemodialysis once cleared by vascular surgery. Hold calcitriol as calcium is elevated Repeat labs in a.m.
--- NOTE | 2023-12-01 12:36 | P.HPIM ---
History of Present Illness H&P Date: 12/01/23 History of Presenting Illness: Patient is a very pleasant 53-year-old male with a past medical history of ESRD on dialysis, atrial fibrillation,, hypothyroidism, GERD, seizure disorder, legally blind, and renal transplant. He presented to the hospital secondary to reports of complications and bleeding from his left groin permacath site. Patient at baseline undergoes home hemodialysis on Friday/Friday/Fridays/Saturdays and reports secondary to the complications with his permacath site and bleeding from the site, he has missed his last 3 dialysis sessions and came to the emergency department for evaluation. Patient reports he was told this was his last dialysis access site and states permacath was just placed to left groin 3 weeks ago. Patient denies having any fevers, chills, erythema, or other drainage from dialysis catheter site. He denies having any dizziness, lightheadedness, chest pain, palpitations, shortness of breath, or any other complaints at this time. Upon arrival to our facility, patient underwent evaluation in the emergency department. Vital signs upon arrival show blood pressure 142/86, heart rate 94, respiratory rate 18, temp 98.0 F, and SpO2 of 97% on room air. Completed and reviewed. CBC showing macrocytic anemia with hemoglobin of 10.6 which appears to be higher than baseline levels, however recent hemoglobin drawn on 11/28/2023 was 12.6. Coagulation profile normal findings. BMP showing high anion gap metabolic alkalosis with chloride of 103, bicarb of 19, and anion gap of 21 with renal function consistent with ESRD with BUN of 92, creatinine of 14.55, GFR of 3. Sodium 143, potassium 4.7, calcium 10.7, and magnesium 2.0. Liver profile unremarkable. Patient was admitted under our services with consultation to vascular surgery and nephrology. Review of systems: Pertinent positives and negatives as discussed in HPI, a complete review of systems was performed and all other systems are negative. Physical exam: Vital signs reviewed and stable. General: Nontoxic, no distress and appears stated age. Derm: Skin warm and dry, normal coloration for ethnicity. Head: Atraumatic, normocephalic and symmetric. Eyes: EOM's intact, no lid lag, and anicteric sclera Mouth: no lip lesions, mucus membranes moist Cardiovascular: regular rate and rhythm with normal S1S2, systolic murmur, positive posterior tibial pulses bilaterally, and cap refill < 2 seconds. Permacath left groin, no surrounding erythema, bleeding, or drainage noted at this time. Lungs: Respirations even, regular, and unlabored on room air. Lungs CTA bilaterally, no rhonchi, no rales, no wheezing, and no accessory muscle usage. Abdominal: soft, nontender to palpation, no guarding, no appreciable organomegaly Ext: ROM intact. No gross muscle atrophy, 1+ bilateral lower extremity pitting edema, no contractures Neuro: Speech clear, face symmetrical and CN II-XII grossly intact with no noted focal neuro deficits Psych: Alert and oriented to person, place, time, and situation. Appropriate and pleasant affect. Assessment and Plan of Care: Complications and bleeding from permacath site ESRD, missed dialysis sessions Hypercalcemia -Consult placed to vascular surgery for evaluation of permacath site and further recommendations. -Consult placed to nephrology for management of hemodialysis -Continued close monitoring of hemoglobin levels, transfuse if indicated for hemoglobin less than 7. -Telemetry monitoring -Continue close monitoring of renal function and electrolytes. Hypertension -Continue daily medication regimen with metoprolol 25 mg twice daily. Hypothyroidism -Continue daily medication regimen with levothyroxine 50 mcg daily. GERD -Continue omeprazole 20 mg nightly. Data and imaging reviewed: As stated above in HPI. CODE STATUS: Full Code DVT prophylaxis: SCDs Anticipated discharge date: Pending clinical course Anticipated discharge place: Home Patient was seen independently by Nurse Practitioner. This document was prepared using [employer] dictation software. Please allow for errors in cattle brander while rare they do occur. .Austin Myers NP rendered care for this patient independently, reviewed the findings and plan as documented in the note above. I did not physically speak with or examine the patient on this date. Past Medical History Past Medical History: Atrial Fibrillation, Dialysis, Eye Disorder, GERD/Reflux, Renal Disease, Seizure Disorder, Thyroid Disorder Additional Past Medical History / Comment(s): Recent fall with quadriceps tendon rupture. Gout. Bruises easily. 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 Kidney transplant in 1999. Hemodialysis [facility] at home. Hx anemia with blood transfusion. 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 Hx diverticulitis. Hx Shingles 02/2021. Hx approximately 7 grand mal seizures in 2021 when on dialysis, unknown etiology, none since. Has nonactive left arm dialysis graft and functioning right groin dialysis port. Frequent headaches. Low blood pressure at times. History of Any Multi-Drug Resistant Organisms: None Reported Additional Past Surgical History / Comment(s): Fistula placement, thyroidectomy, kidney transplant, toenails removed. Past Anesthesia/Blood Transfusion Reactions: No Reported Reaction Additional Past Anesthesia/Blood Transfusion Reaction / Comment(s): Blood transfusion - had no issues. Past Psychological History: No Psychological Hx Reported Smoking Status: Never smoker Past Alcohol Use History: None Reported Past Drug Use History: None Reported - Past Family History Mother Family Medical History: Fibromyalgia, Osteoarthritis (OA) Additional Family Medical History / Comment(s): Lupus Family Family Medical History: No Reported History Additional Family Medical History / Comment(s): ETOH abuse Medications and Allergies Home Medications Medication Instructions Recorded Confirmed Type Levothyroxine Sodium [Synthroid] 50 mcg PO DAILY 12/18/17 12/01/23 History Montelukast [Singulair] 10 mg PO HS 12/18/17 12/01/23 History predniSONE 10 mg PO DAILY 04/25/21 12/01/23 History Atorvastatin [Lipitor] 20 mg PO DAILY 10/15/22 12/01/23 History Midodrine HCl [ProAmatine] 10 mg PO QID PRN 10/15/22 12/01/23 History calcitrioL 0.25 mcg PO SUTUWETHSA 10/15/22 12/01/23 History calcitrioL 0.5 mcg PO MOFR 10/15/22 12/01/23 History Omeprazole [PriLOSEC] 20 mg PO HS 04/25/23 12/01/23 History allopurinoL 100 mg PO DAILY 06/23/23 12/01/23 History Aspirin 81 mg PO DAILY #30 tab 07/06/23 12/01/23 Rx Metoprolol Tartrate [Lopressor] 25 mg PO BID PRN 12/01/23 12/01/23 History Allergies Allergy/AdvReac Type Severity Reaction Status Date / Time adhesive tape Allergy Itching Verified 12/01/23 08:07 codeine Allergy Rash/Hives Verified 12/01/23 08:07 cyclobenzaprine Allergy Rash/Hives Verified 12/01/23 08:07 [From Flexeril] diphenhydramine Allergy Anaphylaxis Verified 12/01/23 08:07 [From Benadryl] hydromorphone [From Dilaudid] Allergy Rash/Hives Verified 12/01/23 08:07 hydroxyzine Allergy Anaphylaxis Verified 12/01/23 08:07 Iodinated Contrast Media Allergy Anaphylaxis Verified 12/01/23 08:07 [Iodinated Contrast- Oral and IV Dye] pantoprazole [From Protonix] Allergy Anaphylaxis Verified 12/01/23 08:07 Penicillins Allergy Rash/Hives Verified 12/01/23 08:07 potassium chloride Allergy Rash/Hives Verified 12/01/23 08:07 pregabalin [From Lyrica] Allergy Anaphylaxis Verified 12/01/23 08:07 sevelamer Allergy Rash/Hives Verified 12/01/23 08:07 warfarin [From Coumadin] Allergy Anaphylaxis Verified 12/01/23 08:07 acetaminophen [From Vicodin] AdvReac Nausea & Verified 12/01/23 08:07 Vomiting aripiprazole [From Abilify] AdvReac Abdominal Verified 12/01/23 08:07 Pain aztreonam AdvReac Unknown Verified 12/01/23 08:07 calcitriol AdvReac Unknown Verified 12/01/23 08:07 cefadroxil AdvReac Unknown Verified 12/01/23 08:07 enalapril AdvReac Unknown Verified 12/01/23 08:07 hydrocodone [From Vicodin] AdvReac Nausea & Verified 12/01/23 08:07 Vomiting Influenza Virus Vaccines AdvReac Unknown Verified 12/01/23 08:07 levofloxacin [From Levaquin] AdvReac Abdominal Verified 12/01/23 08:07 Pain meloxicam [From Mobic] AdvReac Abdominal Verified 12/01/23 08:07 Pain morphine AdvReac Unknown Verified 12/01/23 08:07 propoxyphene AdvReac Unknown Verified 12/01/23 08:07 Sulfa (Sulfonamide AdvReac Vomiting Verified 12/01/23 08:07 Antibiotics) tramadol AdvReac no Verified 12/01/23 08:07 allergy, just does not work for him Physical Exam Vitals: Vital Signs Temp Pulse Resp BP Pulse Ox 12/01/23 09:46 58 L 18 135/97 98 12/01/23 08:05 98 F 94 18 142/86 97 Intake and Output 11/30/23 12/01/23 12/01/23 22:59 06:59 14:59 Other: Weight 81.647 kg Results CBC & Chem 7: 12/01/23 08:29 12/01/23 08:29 Labs: Abnormal Lab Results - Last 24 Hours (Table) 12/01/23 12/01/23 Range/Units 08:29 08:29 RBC 3.32 L (4.30-5.90) m/uL Hgb 10.6 L (13.0-17.5) gm/dL Hct 33.9 L (39.0-53.0) % MCV 102.2 H (80.0-100.0) fL Lymphocytes # 0.8 L (1.0-4.8) k/uL Carbon Dioxide 19 L (22-30) mmol/L BUN 92 H (9-20) mg/dL Creatinine 14.55 H* (0.66-1.25) mg/dL Calcium 10.7 H (8.4-10.2) mg/dL Phosphorus 8.3 H (2.5-4.5) mg/dL Total Protein 5.9 L (6.3-8.2) g/dL
--- NOTE | 2023-12-01 14:30 | P.GSCN ---
History of Present Illness Consult date: 12/01/23 Reason for Consult: Permacath complication Requesting physician: Benjamín Riley History of present illness: 53-year-old male presenting to the emergency department with complaints of permacath complications and bleeding from permacath site. Patient has end-stage renal disease on hemodialysis Friday and Friday. He does his dialysis at home. He is well-known to vascular surgery and follows with Dr. Agarwal. He has had previous complications with his permacath and is required exchanges in the past as well as explantation's for infection. States that ever since he had his new catheter put in his left groin he has had complications with dialysis. States that Friday when they attempted to do dialysis he had significant amount of bleeding from surgical site and states that they could not do dialysis. He also did not have dialysis on Friday so his last dialysis was last Friday. Denies any shortness of breath or chest pain. States that he is starting to feel little bloated in his abdomen. Left femoral vein permacath placed with Dr. Jacobsen on 11/06/2023. He is not having any bleeding currently from the left permacath site and last time it was bleeding was Friday. Review of Systems A 14 point review systems was completed all pertinent positives and negatives as stated in the HPI. Past Medical History Past Medical History: Atrial Fibrillation, Dialysis, Eye Disorder, GERD/Reflux, Renal Disease, Seizure Disorder, Thyroid Disorder Additional Past Medical History / Comment(s): Recent fall with quadriceps tendon rupture. Gout. Bruises easily. 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 Kidney transplant in 1998. Hemodialysis [facility] at home. Hx anemia with blood transfusion. 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 Hx diverticulitis. Hx Shingles 02/2021. Hx approximately 7 grand mal seizures in 2021 when on dialysis, unknown etiology, none since. Has nonactive left arm dialysis graft and functioning right groin dialysis port. Frequent headaches. Low blood pressure at times. History of Any Multi-Drug Resistant Organisms: None Reported Additional Past Surgical History / Comment(s): Fistula placement, thyroidectomy, kidney transplant, toenails removed. Past Anesthesia/Blood Transfusion Reactions: No Reported Reaction Additional Past Anesthesia/Blood Transfusion Reaction / Comm: Blood transfusion - had no issues. Past Psychological History: No Psychological Hx Reported Smoking Status: Never smoker Past Alcohol Use History: None Reported Past Drug Use History: None Reported - Past Family History Mother Family Medical History: Fibromyalgia, Osteoarthritis (OA) Additional Family Medical History / Comment(s): Lupus Family Family Medical History: No Reported History Additional Family Medical History / Comment(s): ETOH abuse Medications and Allergies Home Medications Medication Instructions Recorded Confirmed Type Levothyroxine Sodium [Synthroid] 50 mcg PO DAILY 12/18/17 12/01/23 History Montelukast [Singulair] 10 mg PO HS 12/18/17 12/01/23 History predniSONE 10 mg PO DAILY 04/25/21 12/01/23 History Atorvastatin [Lipitor] 20 mg PO DAILY 10/15/22 12/01/23 History Midodrine HCl [ProAmatine] 10 mg PO QID PRN 10/15/22 12/01/23 History calcitrioL 0.25 mcg PO SUTUWETHSA 10/15/22 12/01/23 History calcitrioL 0.5 mcg PO MOFR 10/15/22 12/01/23 History Omeprazole [PriLOSEC] 20 mg PO HS 04/25/23 12/01/23 History allopurinoL 100 mg PO DAILY 06/23/23 12/01/23 History Aspirin 81 mg PO DAILY #30 tab 07/06/23 12/01/23 Rx Metoprolol Tartrate [Lopressor] 25 mg PO BID PRN 12/01/23 12/01/23 History Allergies Allergy/AdvReac Type Severity Reaction Status Date / Time adhesive tape Allergy Itching Verified 12/01/23 08:07 codeine Allergy Rash/Hives Verified 12/01/23 08:07 cyclobenzaprine Allergy Rash/Hives Verified 12/01/23 08:07 [From Flexeril] diphenhydramine Allergy Anaphylaxis Verified 12/01/23 08:07 [From Benadryl] hydromorphone [From Dilaudid] Allergy Rash/Hives Verified 12/01/23 08:07 hydroxyzine Allergy Anaphylaxis Verified 12/01/23 08:07 Iodinated Contrast Media Allergy Anaphylaxis Verified 12/01/23 08:07 [Iodinated Contrast- Oral and IV Dye] pantoprazole [From Protonix] Allergy Anaphylaxis Verified 12/01/23 08:07 Penicillins Allergy Rash/Hives Verified 12/01/23 08:07 potassium chloride Allergy Rash/Hives Verified 12/01/23 08:07 pregabalin [From Lyrica] Allergy Anaphylaxis Verified 12/01/23 08:07 sevelamer Allergy Rash/Hives Verified 12/01/23 08:07 warfarin [From Coumadin] Allergy Anaphylaxis Verified 12/01/23 08:07 acetaminophen [From Vicodin] AdvReac Nausea & Verified 12/01/23 08:07 Vomiting aripiprazole [From Abilify] AdvReac Abdominal Verified 12/01/23 08:07 Pain aztreonam AdvReac Unknown Verified 12/01/23 08:07 calcitriol AdvReac Unknown Verified 12/01/23 08:07 cefadroxil AdvReac Unknown Verified 12/01/23 08:07 enalapril AdvReac Unknown Verified 12/01/23 08:07 hydrocodone [From Vicodin] AdvReac Nausea & Verified 12/01/23 08:07 Vomiting Influenza Virus Vaccines AdvReac Unknown Verified 12/01/23 08:07 levofloxacin [From Levaquin] AdvReac Abdominal Verified 12/01/23 08:07 Pain meloxicam [From Mobic] AdvReac Abdominal Verified 12/01/23 08:07 Pain morphine AdvReac Unknown Verified 12/01/23 08:07 propoxyphene AdvReac Unknown Verified 12/01/23 08:07 Sulfa (Sulfonamide AdvReac Vomiting Verified 12/01/23 08:07 Antibiotics) tramadol AdvReac no Verified 12/01/23 08:07 allergy, just does not work for him Surgical - Exam Vital Signs Temp Pulse Resp BP Pulse Ox 98 F 94 18 142/86 97 12/01/23 08:05 12/01/23 08:05 12/01/23 08:05 12/01/23 08:05 12/01/23 08:05 General appearance: The patient is alert, oriented, appears in no acute distress. HET: Head is normocephalic and atraumatic. Pupils are equal and reactive. Neck: Supple. Heart: Regular. Lungs: Equal expansion, normal respiratory effort. Abdomen: Soft, nontender, nondistended. Extremities: Normal skin color and turgor. Left groin with tunnel catheter in place without any evidence of bleeding, hematoma or bruising. Neurological: No focal deficits. Strength and sensation are grossly intact. Results - Labs 12/01/23 08:29 12/01/23 08:29 Abnormal Lab Results - Last 24 Hours (Table) 12/01/23 12/01/23 Range/Units 08:29 08:29 RBC 3.32 L (4.30-5.90) m/uL Hgb 10.6 L (13.0-17.5) gm/dL Hct 33.9 L (39.0-53.0) % MCV 102.2 H (80.0-100.0) fL Lymphocytes # 0.8 L (1.0-4.8) k/uL Carbon Dioxide 19 L (22-30) mmol/L BUN 92 H (9-20) mg/dL Creatinine 14.55 H* (0.66-1.25) mg/dL Calcium 10.7 H (8.4-10.2) mg/dL Phosphorus 8.3 H (2.5-4.5) mg/dL Total Protein 5.9 L (6.3-8.2) g/dL Diabetes panel 12/01/23 Range/Units 08:29 Sodium 143 (137-145) mmol/L Potassium 4.7 (3.5-5.1) mmol/L Chloride 103 (98-107) mmol/L Carbon Dioxide 19 L (22-30) mmol/L BUN 92 H (9-20) mg/dL Creatinine 14.55 H* (0.66-1.25) mg/dL Glucose 77 (74-99) mg/dL Calcium 10.7 H (8.4-10.2) mg/dL AST 20 (17-59) U/L ALT 11 (4-49) U/L Alkaline Phosphatase 48 (38-126) U/L Total Protein 5.9 L (6.3-8.2) g/dL Albumin 4.0 (3.5-5.0) g/dL Calcium panel 12/01/23 Range/Units 08:29 Calcium 10.7 H (8.4-10.2) mg/dL Phosphorus 8.3 H (2.5-4.5) mg/dL Albumin 4.0 (3.5-5.0) g/dL Pituitary panel 12/01/23 Range/Units 08:29 Sodium 143 (137-145) mmol/L Potassium 4.7 (3.5-5.1) mmol/L Chloride 103 (98-107) mmol/L Carbon Dioxide 19 L (22-30) mmol/L BUN 92 H (9-20) mg/dL Creatinine 14.55 H* (0.66-1.25) mg/dL Glucose 77 (74-99) mg/dL Calcium 10.7 H (8.4-10.2) mg/dL Adrenal panel 12/01/23 Range/Units 08:29 Sodium 143 (137-145) mmol/L Potassium 4.7 (3.5-5.1) mmol/L Chloride 103 (98-107) mmol/L Carbon Dioxide 19 L (22-30) mmol/L BUN 92 H (9-20) mg/dL Creatinine 14.55 H* (0.66-1.25) mg/dL Glucose 77 (74-99) mg/dL Calcium 10.7 H (8.4-10.2) mg/dL Total Bilirubin 0.8 (0.2-1.3) mg/dL AST 20 (17-59) U/L ALT 11 (4-49) U/L Alkaline Phosphatase 48 (38-126) U/L Total Protein 5.9 L (6.3-8.2) g/dL Albumin 4.0 (3.5-5.0) g/dL Assessment and Plan Assessment: 1. Tunneled hemodialysis catheter malfunction/bleeding 2. End-stage renal disease on hemodialysis Plan: 1. Hemodialysis per recommendations from nephrology 2. HD catheter not currently bleeding 3. Reevaluate after hemodialysis with further recommendations from vascular surgery Thank you for this consultation, we will continue to follow. The impression and plan of care has been dictated as directed. Dr. Jennings I performed a history and examination of this patient, discussed the same with the dictator. I agree with the dictator's note ,documented as a scribe. Any additional findings or plans will be noted.
[2023-12-01 20:35] VITALS: TEMP 97.6
[2023-12-01] MEDS ORDERED: MONTELUKAST 10 MG TAB PO SCH (21:00)
[2023-12-01 21:42] VITALS: BP 131/68; PULSE 68; RESP 16
[2023-12-02 02:25] LABS: Hepatitis B Surface AB- Quant 3.5 mIU/mL
[2023-12-02 02:41] LABS: Hepatitis B Surface Antigen Nonreactive (Nonreactive)
[2023-12-02] MEDS ORDERED: LEVOTHYROXINE 50 MCG TAB PO SCH (06:30)
--- NOTE | 2023-12-02 07:37 | P.DS ---
Providers Date of admission: 12/01/23 10:09 Expected date of discharge: 12/01/23 Attending physician: Leonard Rose MD Consults: 12/01/23 09:52 Consult Physician Urgent Consulting Provider: Christiano Keys Consult Reason/Comments: Permacath complication Do you want consulting provider notified?: Yes Consult Physician Urgent Consulting Provider: Mamie Lucia Consult Reason/Comments: Dialysis Do you want consulting provider notified?: Yes Primary care physician: Stated None Hospital Course: THIS IS NOT A DISCHARGE SUMMARY, BUT A SUMMARY OF CARE PER DOCUMENTATION IN CHART, PT LEFT AGAINST MEDICAL 12/01/23 AT 9:41 PM Discharge Diagnosis: Complications and bleeding from permacath site ESRD, missed dialysis sessions Hypercalcemia Hypertension Hypothyroidism GERD Hospital Course: Patient is a very pleasant 53-year-old male with a past medical history of ESRD on dialysis, atrial fibrillation,, hypothyroidism, GERD, seizure disorder, legally blind, and renal transplant. He presented to the hospital secondary to reports of complications and bleeding from his left groin permacath site. Patient at baseline undergoes home hemodialysis on Friday/Friday/Fridays/Saturdays and reports secondary to the complications with his permacath site and bleeding from the site, he has missed his last 3 dialysis sessions and came to the emergency department for evaluation. Patient reports he was told this was his last dialysis access site and states permacath was just placed to left groin 3 weeks ago. Patient denies having any fevers, chills, erythema, or other drainage from dialysis catheter site. He denies having any dizziness, lightheadedness, chest pain, palpitations, shortness of breath, or any other complaints at this time. Upon arrival to our facility, patient underwent evaluation in the emergency department. Vital signs upon arrival show blood pressure 142/86, heart rate 94, respiratory rate 18, temp 98.0 F, and SpO2 of 97% on room air. Completed and reviewed. CBC showing macrocytic anemia with hemoglobin of 10.6 which appears to be higher than baseline levels, however recent hemoglobin drawn on 11/28/2023 was 12.6. Coagulation profile normal findings. BMP showing high anion gap metabolic alkalosis with chloride of 103, bicarb of 19, and anion gap of 21 with renal function consistent with ESRD with BUN of 92, creatinine of 14.55, GFR of 3. Sodium 143, potassium 4.7, calcium 10.7, and magnesium 2.0. Liver profile unre markable. Patient was admitted under our services with consultation to vascular surgery and nephrology. PER DOCUMENTATION IN CHART, PT LEFT AGAINST MEDICAL 12/01/23 AT 9:41 PM PT LEFT AGAINST MEDICAL 12/01/23 AT 9:41 PM Austin Myers NP rendered care for this patient independently, reviewed the findings and plan as documented in the note above. I did not physically speak with or examine the patient on this date. Patient Condition at Discharge: Undetermined Plan - Discharge Summary New Discharge Prescriptions: No Action Montelukast [Singulair] 10 mg PO HS Levothyroxine Sodium [Synthroid] 50 mcg PO DAILY Omeprazole [PriLOSEC] 20 mg PO HS allopurinoL 100 mg PO DAILY Aspirin 81 mg PO DAILY #30 tab predniSONE 10 mg PO DAILY calcitrioL 0.25 mcg PO SUTUWETHSA calcitrioL 0.5 mcg PO MOFR Midodrine HCl [ProAmatine] 10 mg PO QID PRN PRN Reason: low bp Atorvastatin [Lipitor] 20 mg PO DAILY Metoprolol Tartrate [Lopressor] 25 mg PO BID PRN PRN Reason: high bp Discharge Medication List Levothyroxine Sodium [Synthroid] 50 mcg PO DAILY 12/18/17 [History] Montelukast [Singulair] 10 mg PO HS 12/18/17 [History] predniSONE 10 mg PO DAILY 04/25/21 [History] Atorvastatin [Lipitor] 20 mg PO DAILY 10/15/22 [History] Midodrine HCl [ProAmatine] 10 mg PO QID PRN 10/15/22 [History] calcitrioL 0.25 mcg PO SUTUWETHSA 10/15/22 [History] calcitrioL 0.5 mcg PO MOFR 10/15/22 [History] Omeprazole [PriLOSEC] 20 mg PO HS 04/25/23 [History] allopurinoL 100 mg PO DAILY 06/23/23 [History] Aspirin 81 mg PO DAILY #30 tab 07/06/23 [Rx] Metoprolol Tartrate [Lopressor] 25 mg PO BID PRN 12/01/23 [History] Follow up Appointment(s)/Referral(s): None,Stated [Primary Care Provider] - 1-2 days Discharge Disposition: LEFT AGAINST MEDICAL ADVICE
[2023-12-02] MEDS ORDERED: ATORVASTATIN 20 MG TAB PO SCH (09:00)
[2023-12-02] MEDS ORDERED: allopurinoL 100 MG TAB PO SCH (09:00)
[2023-12-02] MEDS ORDERED: predniSONE 10 MG TAB PO SCH (09:00)
== END 2023-12-01 21:52 | disposition left against medical advice (07) | DRG 314 ==
LOC: EC 07:55 → 4SSUR 10:09
PROVIDERS: ADMIT Student in an Organized Health Care Education/Training Program; ATTEND Student in an Organized Health Care Education/Training Program
DX: T82.838A Hemorrhage due to vascular prosthetic devices, implants and grafts, initial encounter (principal); N18.6 End stage renal disease; E87.3 Alkalosis; I12.0 Hypertensive chronic kidney disease with stage 5 chronic kidney disease or end stage renal disease; Z94.0 Kidney transplant status; D63.1 Anemia in chronic kidney disease; E83.52 Hypercalcemia; E87.70 Fluid overload, unspecified; E89.0 Postprocedural hypothyroidism; G40.909 Epilepsy, unspecified, not intractable, without status epilepticus; H54.8 Legal blindness, as defined in USA; I48.91 Unspecified atrial fibrillation; K21.9 Gastro-esophageal reflux disease without esophagitis; M89.8X9 Other specified disorders of bone, unspecified site; M10.9 Gout, unspecified; Z91.158 Patient's noncompliance with renal dialysis for other reason; Z99.2 Dependence on renal dialysis; Y71.2 Prosthetic and other implants, materials and accessory cardiovascular devices associated with adverse incidents; Z79.52 Long term (current) use of systemic steroids; Z79.890 Hormone replacement therapy; Z79.899 Other long term (current) drug therapy; Z79.82 Long term (current) use of aspirin; Z88.5 Allergy status to narcotic agent; Z88.0 Allergy status to penicillin; Z88.2 Allergy status to sulfonamides; Z88.8 Allergy status to other drugs, medicaments and biological substances; Z91.041 Radiographic dye allergy status
CPT/HCPCS: 36415; 80053; 83735; 84100; 85025; 85610; 85730; 86706; 87340; 90935; 99285

== ENCOUNTER 2023-12-08 00:11 | Observation (INO) | payer MEDICARE ==
[2023-12-08] MEDS ORDERED: NALOXONE 0.4 MG/ML 1 ML VIAL IV PRN (01:48)
--- NOTE | 2023-12-08 01:52 | ED ---
Recheck HPI - General Chief Complaint: Recheck/Abnormal Lab/Rx Stated Complaint: Urogenital Time Seen by Provider: 12/08/23 00:31 Source: patient, RN notes reviewed Mode of arrival: ambulatory Limitations: no limitations - History of Present Illness Initial Comments: 53-year-old male with history of end-stage renal disease presenting with hemodialysis catheter issue. States tonight his dialysis catheter in the left groin fell out. States he receives hemodialysis 4 times weekly, last was Friday morning. No other complaints. - Related Data Home Medications Medication Instructions Recorded Confirmed Levothyroxine Sodium [Synthroid] 50 mcg PO DAILY 12/18/17 12/01/23 Montelukast [Singulair] 10 mg PO HS 12/18/17 12/01/23 predniSONE 10 mg PO DAILY 04/25/21 12/01/23 Atorvastatin [Lipitor] 20 mg PO DAILY 10/15/22 12/01/23 Midodrine HCl [ProAmatine] 10 mg PO QID PRN 10/15/22 12/01/23 calcitrioL 0.25 mcg PO SUTUWETHSA 10/15/22 12/01/23 calcitrioL 0.5 mcg PO MOFR 10/15/22 12/01/23 Omeprazole [PriLOSEC] 20 mg PO HS 04/25/23 12/01/23 allopurinoL 100 mg PO DAILY 06/23/23 12/01/23 Metoprolol Tartrate [Lopressor] 25 mg PO BID PRN 12/01/23 12/01/23 Previous Rx's Medication Instructions Recorded Aspirin 81 mg PO DAILY #30 tab 07/06/23 Allergies Allergy/AdvReac Type Severity Reaction Status Date / Time adhesive tape Allergy Itching Verified 12/08/23 00:17 codeine Allergy Rash/Hives Verified 12/08/23 00:17 cyclobenzaprine Allergy Rash/Hives Verified 12/08/23 00:17 [From Flexeril] diphenhydramine Allergy Anaphylaxis Verified 12/08/23 00:17 [From Benadryl] hydromorphone [From Dilaudid] Allergy Rash/Hives Verified 12/08/23 00:17 hydroxyzine Allergy Anaphylaxis Verified 12/08/23 00:17 Iodinated Contrast Media Allergy Anaphylaxis Verified 12/08/23 00:17 [Iodinated Contrast- Oral and IV Dye] pantoprazole [From Protonix] Allergy Anaphylaxis Verified 12/08/23 00:17 Penicillins Allergy Rash/Hives Verified 12/08/23 00:17 potassium chloride Allergy Rash/Hives Verified 12/08/23 00:17 pregabalin [From Lyrica] Allergy Anaphylaxis Verified 12/08/23 00:17 sevelamer Allergy Rash/Hives Verified 12/08/23 00:17 warfarin [From Coumadin] Allergy Anaphylaxis Verified 12/08/23 00:17 acetaminophen [From Vicodin] AdvReac Nausea & Verified 12/08/23 00:17 Vomiting aripiprazole [From Abilify] AdvReac Abdominal Verified 12/08/23 00:17 Pain aztreonam AdvReac Unknown Verified 12/08/23 00:17 calcitriol AdvReac Unknown Verified 12/08/23 00:17 cefadroxil AdvReac Unknown Verified 12/08/23 00:17 enalapril AdvReac Unknown Verified 12/08/23 00:17 hydrocodone [From Vicodin] AdvReac Nausea & Verified 12/08/23 00:17 Vomiting Influenza Virus Vaccines AdvReac Unknown Verified 12/08/23 00:17 levofloxacin [From Levaquin] AdvReac Abdominal Verified 12/08/23 00:17 Pain meloxicam [From Mobic] AdvReac Abdominal Verified 12/08/23 00:17 Pain morphine AdvReac Unknown Verified 12/08/23 00:17 propoxyphene AdvReac Unknown Verified 12/08/23 00:17 Sulfa (Sulfonamide AdvReac Vomiting Verified 12/08/23 00:17 Antibiotics) tramadol AdvReac no Verified 12/08/23 00:17 allergy, just does not work for him Review of Systems ROS Statement: Those systems with pertinent positive or pertinent negative responses have been documented in the HPI. ROS Other: All systems not noted in ROS Statement are negative. Past Medical History Past Medical History: Atrial Fibrillation, Dialysis, Eye Disorder, GERD/Reflux, Renal Disease, Seizure Disorder, Thyroid Disorder Additional Past Medical History / Comment(s): Recent fall with quadriceps tendon rupture. Gout. Bruises easily. 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 Kidney transplant in 1998. Hemodialysis [facility] at home. Hx anemia with blood transfusion. 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 Hx diverticulitis. Hx Shingles 02/2021. Hx approximately 7 grand mal seizures in 2021 when on dialysis, unknown etiology, none since. Has nonactive left arm dialysis graft and functioning right groin dialysis port. Frequent headaches. Low blood pressure at times. History of Any Multi-Drug Resistant Organisms: None Reported Additional Past Surgical History / Comment(s): Fistula placement, thyroidectomy, kidney transplant, toenails removed. Past Anesthesia/Blood Transfusion Reactions: No Reported Reaction Additional Past Anesthesia/Blood Transfusion Reaction / Comment(s): Blood transfusion - had no issues. Past Psychological History: No Psychological Hx Reported Smoking Status: Never smoker Past Alcohol Use History: None Reported Past Drug Use History: None Reported - Past Family History Mother Family Medical History: Fibromyalgia, Osteoarthritis (OA) Additional Family Medical History / Comment(s): Lupus Family Family Medical History: No Reported History Additional Family Medical History / Comment(s): ETOH abuse General Exam Limitations: no limitations General appearance: alert, in no apparent distress Head exam: Present: atraumatic, normocephalic, normal inspection GI/Abdominal exam: Present: soft, normal bowel sounds. Absent: distended, tenderness, guarding, rebound, rigid Course Vital Signs 12/08/23 00:16 Temperature 98.3 F Pulse Rate 84 Respiratory 18 Rate Blood Pressure 108/59 O2 Sat by Pulse 98 Oximetry Medical Decision Making - Medical Decision Making Was pt. sent in by a medical professional or institution (, PA, VPK TEACHER, urgent care, hospital, or alf...) When possible be specific @ -No Did you speak to anyone other than the patient for history (EMS, parent, family, police, friend...)? What history was obtained from this source @ -No Did you review nursing and triage notes (agree or disagree)? Why? @ -I reviewed and agree with nursing and triage notes Were old charts reviewed (outside hosp., previous admission, EMS record, old EKG, old radiological studies, urgent care reports/EKG's, alf records)? Report findings @ -No old charts were reviewed Differential Diagnosis (chest pain, altered mental status, abdominal pain women, abdominal pain men, vaginal bleeding, weakness, fever, dyspnea, syncope, headache, dizziness, GI bleed, back pain, seizure, CVA, palpatations, mental health, musculoskeletal)? @ -Hemodialysis catheter issue, end-stage renal disease, catheter infection EKG interpreted by me (3pts min.). @ -None X-rays interpreted by me (1pt min.). @ -None done CT interpreted by me (1pt min.). @ -None done U/S interpreted by me (1pt. min.). @ -None done What testing was considered but not performed or refused? (CT, X-rays, U/S, labs)? Why? @ -None What meds were considered but not given or refused? Why? @ -None Did you discuss the management of the patient with other professionals (professionals i.e. , PA, VPK TEACHER, lab, RT, psych nurse, 7th grade social studies teacher, ship's pilot, teacher, parking officer, residential case manager)? Give summary @ -I spoke with Dr. Stewart who accepts admission at this time for hemodialysis catheter issue with consultation to nephrology and vascular services Was smoking cessation discussed for >3mins.? @ -No Was critical care preformed (if so, how long)? @ -No Were there social determinants of health that impacted care today? How? (Homelessness, low income, unemployed, alcoholism, drug addiction, transportation, low edu. Level, literacy, decrease access to med. care, longterm, rehab)? @ -No Was there de-escalation of care discussed even if they declined (Discuss DNR or withdrawal of care, Hospice)? DNR status @ -No What co-morbidities impacted this encounter? (DM, HTN, Smoking, COPD, CAD, Cancer, CVA, ARF, Chemo, Hep., AIDS, mental health diagnosis, sleep apnea, morbid obesity)? @ -None Was patient admitted / discharged? Hospital course, mention meds given and route, prescriptions, significant lab abnormalities, going to OR and other pertinent info. @ -Patient was admitted. This is a 53-year-old male with history of end-stage renal disease presenting with hemodialysis catheter issue. Patient states catheter fell out tonight. He receives hemodialysis 4 times weekly. No other complaints. I spoke with Dr. Stewart who accepts admission at this time for hemodialysis catheter issue with consultation to nephrology and vascular serv ices. Basic lab work was ordered during time of admission. Case was discussed with my ED attending Dr. Benton. Undiagnosed new problem with uncertain prognosis? @ -No Drug Therapy requiring intensive monitoring for toxicity (Heparin, Nitro, Insulin, Cardizem)? @ -No Were any procedures done? @ -No Diagnosis/symptom? @ -Hemodialysis catheter issue Acute, or Chronic, or Acute on Chronic? @ -Acute Uncomplicated (without systemic symptoms) or Complicated (systemic symptoms)? @ -Uncomplicated Side effects of treatment? @ -No Exacerbation, Progression, or Severe Exacerbation? @ -No Poses a threat to life or bodily function? How? (Chest pain, USA, AR, pneumonia, PE, COPD, DKA, ARF, appy, cholecystitis, CVA, Diverticulitis, Homicidal, Suicidal, threat to staff... and all critical care pts) @ -yes - Lab Data Result diagrams: 12/08/23 02:14 Lab Results 12/08/23 12/08/23 Range/Units 02:14 02:14 WBC 5.2 (3.8-10.6) k/uL RBC 3.57 L (4.30-5.90) m/uL Hgb 11.4 L (13.0-17.5) gm/dL Hct 36.9 L (39.0-53.0) % MCV 103.3 H (80.0-100.0) fL MCH 32.0 (25.0-35.0) pg MCHC 30.9 L (31.0-37.0) g/dL RDW 15.4 (11.5-15.5) % Plt Count 148 L (150-450) k/uL MPV 6.9 Neutrophils % 74 % Lymphocytes % 17 % Monocytes % 7 % Eosinophils % 1 % Basophils % 1 % Neutrophils # 3.9 (1.3-7.7) k/uL Lymphocytes # 0.9 L (1.0-4.8) k/uL Monocytes # 0.4 (0-1.0) k/uL Eosinophils # 0.0 (0-0.7) k/uL Basophils # 0.0 (0-0.2) k/uL Hypochromasia Slight Macrocytosis Moderate PT 10.7 (10.0-12.5) sec INR 1.0 (<1.2) APTT 24.7 (22.0-30.0) sec Disposition Clinical Impression: Hemodialysis catheter dysfunction Disposition: ADMITTED IP TO THIS HOSP Referrals: Mychal Jerome DO [Primary Care Provider] - 1-2 days Time of Disposition: 01:52
[2023-12-08 02:32] LABS: Basophils % (A) 1 %; Eosinophils % (A) 1 %; HCT 36.9 % (39.0-53.0); HGB 11.4 gm/dL (13.0-17.5); Hypochromasia Slight; Lymphocytes # (A) 0.9 k/uL (1.0-4.8); Lymphocytes % (A) 17 %; MCHC 30.9 g/dL (31.0-37.0); MCV 103.3 fL (80.0-100.0); Macrocytosis Moderate; Mean Platelet Volume 6.9; Monocytes # (A) 0.4 k/uL (0-1.0); Monocytes % (A) 7 %; Neutrophils # (A) 3.9 k/uL (1.3-7.7); Neutrophils % (A) 74 %; Platelet Count 148 k/uL (150-450); RBC 3.57 m/uL (4.30-5.90); RDW 15.4 % (11.5-15.5); WBC 5.2 k/uL (3.8-10.6)
[2023-12-08 02:45] LABS: Partial Thromboplastin Time 24.7 sec (22.0-30.0); Prothrombin Time 10.7 sec (10.0-12.5)
[2023-12-08 03:35] LABS: ALT 12 U/L (4-49); AST 28 U/L (17-59); African American GFR (CKD) 7 (>60 ml/min/1.73 sqM); Albumin 4.4 g/dL (3.5-5.0); Alkaline Phosphatase 52 U/L (38-126); Anion Gap 12 mmol/L; Blood Urea Nitrogen 64 mg/dL (9-20); Carbon Dioxide 25 mmol/L (22-30); Chloride 100 mmol/L (98-107); Glucose 96 mg/dL (74-99); Non-African American GFR(CKD) 6 (>60 ml/min/1.73 sqM); Phosphorus 6.4 mg/dL (2.5-4.5); Sodium 137 mmol/L (137-145); Total Bilirubin 0.9 mg/dL (0.2-1.3); Total Protein 6.5 g/dL (6.3-8.2)
--- NOTE | 2023-12-08 04:26 | P.HPIM ---
History of Present Illness H&P Date: 12/08/23 Patient is a 53-year-old male with a PMH of ESRD (since age 16, unknown etiology), A-fib not on anticoagulation (unknown reason), seizure disorder, legally blind, hypothyroidism, and GERD who presented to the emergency room for issues with his dialysis catheter. Patient reports that his left groin dialysis catheter became dislodged as he was walking in his home today. Patient does report experiencing some mild pain at the site of the catheter at that time. Of note, the patient was previously admitted to the hospital on 11/30 for a malfunctioning left femoral permacath. Vascular surgery was consulted and the catheter was noted to not be bleeding. The patient subsequently left AMA. He had been receiving dialysis as previously scheduled 4 times weekly on (having received his session on Friday unremarkably). He does report noticing some mild swelling of his left groin since the permacath became dislodged. Denied any additional complaints. Denied experiencing chest discomfort, shortness breath, nausea, vomiting, abdominal pain, diarrhea. Laboratory evaluation in the emergency room revealed a hemoglobin of 11.4, platelet count 148. ED documentation reviewed and case discussed with ED provider. Review of systems: Pertinent positives and negatives as discussed in HPI, a complete review of systems was performed and all other systems are negative. Physical examination: Vital signs reviewed General: non toxic, no distress, appears older than stated age, overweight Derm: no unusual rashes/lesions, warm Head: atraumatic, normocephalic, symmetric Eyes: EOMI, no lid lag, anicteric sclera, L pupil non-reactive to light, R pupil 2 mm minimally reactive to light ENT: Nose and ears atraumatic Neck: No cervical lymphadenopathy, trachea midline, supple Mouth: no lip lesion, mucus membranes moist Cardiovascular: S1S2 reg, grade 4 systolic murmur appreciated, positive dorsalis pedis pulse bilateral, no edema Lungs: CTA bilateral, no rhonchi, no rales, no accessory muscle use Abdominal: Distended, nontender to palpation, no guarding Ext: muscle strength 5 out of 5 in all 4 extremities grossly, no gross muscle atrophy, no contractures, left groin mild bruising noted with minimal tenderness Neuro: CN II-XI grossly intact, no gross focal neuro deficits Psych: Alert, oriented, appropriate affect Assessment: Accidental dislodgment of left femoral permacath Chronic conditions: ESRD, hypertension, hypothyroidism, GERD, seizure disorder, A-fib not on anticoagulation Imaging: None performed Data Review: Laboratory evaluation in the emergency room revealed a hemoglobin of 11.4, platelet count 148. Plan: Vascular surgery consulted for placement of new dialysis access Nephrology consulted for resumption of hemodialysis Obtain R groin US to assess for hematoma Resume home medications including Lipitor, midodrine, aspirin, allopurinol, levothyroxine, Singulair, prednisone, and metoprolol once reconciled DVT prophylaxis: IPCDs The patient is admitted with an anticipated fewer than 2 midnight stay for evaluation of dialysis catheter dislodgement CODE STATUS: Full Code Discussed with: Patient Anticipated discharge place: Home Past Medical History Past Medical History: Atrial Fibrillation, Dialysis, Eye Disorder, GERD/Reflux, Renal Disease, Seizure Disorder, Thyroid Disorder Additional Past Medical History / Comment(s): Recent fall with quadriceps tendon rupture. Gout. Bruises easily. 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 Kidney transplant in 1998. Hemodialysis [facility] at home. Hx anemia with blood transfusion. 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 Hx diverticulitis. Hx Shingles 02/2021. Hx approximately 7 grand mal seizures in 2021 when on dialysis, unknown etiology, none since. Has nonactive left arm dialysis graft and functioning right groin dialysis port. Frequent headaches. Low blood pressure at times. History of Any Multi-Drug Resistant Organisms: None Reported Additional Past Surgical History / Comment(s): Fistula placement, thyroidectomy, kidney transplant, toenails removed. Past Anesthesia/Blood Transfusion Reactions: No Reported Reaction Additional Past Anesthesia/Blood Transfusion Reaction / Comment(s): Blood transfusion - had no issues. Past Psychological History: No Psychological Hx Reported Smoking Status: Never smoker Past Alcohol Use History: None Reported Past Drug Use History: None Reported - Past Family History Mother Family Medical History: Fibromyalgia, Osteoarthritis (OA) Additional Family Medical History / Comment(s): Lupus Family Family Medical History: No Reported History Additional Family Medical History / Comment(s): ETOH abuse Medications and Allergies Home Medications Medication Instructions Recorded Confirmed Type Levothyroxine Sodium [Synthroid] 50 mcg PO DAILY 12/18/17 12/01/23 History Montelukast [Singulair] 10 mg PO HS 12/18/17 12/01/23 History predniSONE 10 mg PO DAILY 04/25/21 12/01/23 History Atorvastatin [Lipitor] 20 mg PO DAILY 10/15/22 12/01/23 History Midodrine HCl [ProAmatine] 10 mg PO QID PRN 10/15/22 12/01/23 History calcitrioL 0.25 mcg PO SUTUWETHSA 10/15/22 12/01/23 History calcitrioL 0.5 mcg PO MOFR 10/15/22 12/01/23 History Omeprazole [PriLOSEC] 20 mg PO HS 04/25/23 12/01/23 History allopurinoL 100 mg PO DAILY 06/23/23 12/01/23 History Aspirin 81 mg PO DAILY #30 tab 07/06/23 12/01/23 Rx Metoprolol Tartrate [Lopressor] 25 mg PO BID PRN 12/01/23 12/01/23 History Allergies Allergy/AdvReac Type Severity Reaction Status Date / Time adhesive tape Allergy Itching Verified 12/08/23 00:17 codeine Allergy Rash/Hives Verified 12/08/23 00:17 cyclobenzaprine Allergy Rash/Hives Verified 12/08/23 00:17 [From Flexeril] diphenhydramine Allergy Anaphylaxis Verified 12/08/23 00:17 [From Benadryl] hydromorphone [From Dilaudid] Allergy Rash/Hives Verified 12/08/23 00:17 hydroxyzine Allergy Anaphylaxis Verified 12/08/23 00:17 Iodinated Contrast Media Allergy Anaphylaxis Verified 12/08/23 00:17 [Iodinated Contrast- Oral and IV Dye] pantoprazole [From Protonix] Allergy Anaphylaxis Verified 12/08/23 00:17 Penicillins Allergy Rash/Hives Verified 12/08/23 00:17 potassium chloride Allergy Rash/Hives Verified 12/08/23 00:17 pregabalin [From Lyrica] Allergy Anaphylaxis Verified 12/08/23 00:17 sevelamer Allergy Rash/Hives Verified 12/08/23 00:17 warfarin [From Coumadin] Allergy Anaphylaxis Verified 12/08/23 00:17 acetaminophen [From Vicodin] AdvReac Nausea & Verified 12/08/23 00:17 Vomiting aripiprazole [From Abilify] AdvReac Abdominal Verified 12/08/23 00:17 Pain aztreonam AdvReac Unknown Verified 12/08/23 00:17 calcitriol AdvReac Unknown Verified 12/08/23 00:17 cefadroxil AdvReac Unknown Verified 12/08/23 00:17 enalapril AdvReac Unknown Verified 12/08/23 00:17 hydrocodone [From Vicodin] AdvReac Nausea & Verified 12/08/23 00:17 Vomiting Influenza Virus Vaccines AdvReac Unknown Verified 12/08/23 00:17 levofloxacin [From Levaquin] AdvReac Abdominal Verified 12/08/23 00:17 Pain meloxicam [From Mobic] AdvReac Abdominal Verified 12/08/23 00:17 Pain morphine AdvReac Unknown Verified 12/08/23 00:17 propoxyphene AdvReac Unknown Verified 12/08/23 00:17 Sulfa (Sulfonamide AdvReac Vomiting Verified 12/08/23 00:17 Antibiotics) tramadol AdvReac no Verified 12/08/23 00:17 allergy, just does not work for him Physical Exam Vitals: Vital Signs Temp Pulse Resp BP Pulse Ox 12/08/23 04:10 97.8 F 61 16 126/78 96 12/08/23 00:16 98.3 F 84 18 108/59 98 Intake and Output 12/07/23 12/07/23 12/08/23 14:59 22:59 06:59 Other: Weight 81.647 kg Results CBC & Chem 7: 12/08/23 02:14 12/08/23 02:14 Labs: Abnormal Lab Results - Last 24 Hours (Table) 12/08/23 Range/Units 02:14 RBC 3.57 L (4.30-5.90) m/uL Hgb 11.4 L (13.0-17.5) gm/dL Hct 36.9 L (39.0-53.0) % MCV 103.3 H (80.0-100.0) fL MCHC 30.9 L (31.0-37.0) g/dL Plt Count 148 L (150-450) k/uL Lymphocytes # 0.9 L (1.0-4.8) k/uL
[2023-12-08] MEDS: ACETAMINOPHEN TAB 325 MG TAB PO PRN (08:31)
--- NOTE | 2023-12-08 09:30 | P.NPCON ---
History of Present Illness - Reason for Consult end stage renal disease - History of Present Illness Reason for consultation: End-stage renal disease History of present illness: Patient is a 53-year-old male seen in renal consultation for end-stage renal disease. He is maintained on home hemodialysis via left femoral catheter. Patient states his last hemodialysis treatment was Friday afternoon. Patient states yesterday his femoral catheter fell out. Therefore patient came to the hospital. He denies chest pain or shortness of breath. No vomiting or diarrhea. Oral intake is good. Hemodynamically stable. No fever or chills. Vital signs are stable. General: No acute distress. HEENT: Head exam is unremarkable. LUNGS: No audible rhonchi or wheezes. HEART: Rate and Rhythm are regular. ABDOMEN: Obese, nontender. EXTREMITITES: No edema. Past Medical History Past Medical History: Atrial Fibrillation, Dialysis, Eye Disorder, GERD/Reflux, Renal Disease, Seizure Disorder, Thyroid Disorder Additional Past Medical History / Comment(s): Recent fall with quadriceps tendon rupture. Gout. Bruises easily. 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 Kidney transplant in 1998. Hemodialysis [facility] at home. Hx anemia with blood transfusion. 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 Hx diverticulitis. Hx Shingles 02/2021. Hx approximately 7 grand mal seizures in 2021 when on dialysis, unknown etiology, none since. Has nonactive left arm dialysis graft and functioning right groin dialysis port. Frequent headaches. Low blood pressure at times. History of Any Multi-Drug Resistant Organisms: None Reported Additional Past Surgical History / Comment(s): Fistula placement, thyroidectomy, kidney transplant, toenails removed. Past Anesthesia/Blood Transfusion Reactions: No Reported Reaction Additional Past Anesthesia/Blood Transfusion Reaction / Comment(s): Blood transfusion - had no issues. Past Psychological History: No Psychological Hx Reported Smoking Status: Never smoker Past Alcohol Use History: None Reported Past Drug Use History: None Reported - Past Family History Mother Family Medical History: Fibromyalgia, Osteoarthritis (OA) Additional Family Medical History / Comment(s): Lupus Family Family Medical History: No Reported History Additional Family Medical History / Comment(s): ETOH abuse Medications and Allergies Home Medications Medication Instructions Recorded Confirmed Type Levothyroxine Sodium [Synthroid] 50 mcg PO DAILY 12/18/17 12/01/23 History Montelukast [Singulair] 10 mg PO HS 12/18/17 12/01/23 History predniSONE 10 mg PO DAILY 04/25/21 12/01/23 History Atorvastatin [Lipitor] 20 mg PO DAILY 10/15/22 12/01/23 History Midodrine HCl [ProAmatine] 10 mg PO QID PRN 10/15/22 12/01/23 History calcitrioL 0.25 mcg PO SUTUWETHSA 10/15/22 12/01/23 History calcitrioL 0.5 mcg PO MOFR 10/15/22 12/01/23 History Omeprazole [PriLOSEC] 20 mg PO HS 04/25/23 12/01/23 History allopurinoL 100 mg PO DAILY 06/23/23 12/01/23 History Aspirin 81 mg PO DAILY #30 tab 07/06/23 12/01/23 Rx Metoprolol Tartrate [Lopressor] 25 mg PO BID PRN 12/01/23 12/01/23 History Allergies Allergy/AdvReac Type Severity Reaction Status Date / Time adhesive tape Allergy Itching Verified 12/08/23 00:17 codeine Allergy Rash/Hives Verified 12/08/23 00:17 cyclobenzaprine Allergy Rash/Hives Verified 12/08/23 00:17 [From Flexeril] diphenhydramine Allergy Anaphylaxis Verified 12/08/23 00:17 [From Benadryl] hydromorphone [From Dilaudid] Allergy Rash/Hives Verified 12/08/23 00:17 hydroxyzine Allergy Anaphylaxis Verified 12/08/23 00:17 Iodinated Contrast Media Allergy Anaphylaxis Verified 12/08/23 00:17 [Iodinated Contrast- Oral and IV Dye] pantoprazole [From Protonix] Allergy Anaphylaxis Verified 12/08/23 00:17 Penicillins Allergy Rash/Hives Verified 12/08/23 00:17 potassium chloride Allergy Rash/Hives Verified 12/08/23 00:17 pregabalin [From Lyrica] Allergy Anaphylaxis Verified 12/08/23 00:17 sevelamer Allergy Rash/Hives Verified 12/08/23 00:17 warfarin [From Coumadin] Allergy Anaphylaxis Verified 12/08/23 00:17 acetaminophen [From Vicodin] AdvReac Nausea & Verified 12/08/23 00:17 Vomiting aripiprazole [From Abilify] AdvReac Abdominal Verified 12/08/23 00:17 Pain aztreonam AdvReac Unknown Verified 12/08/23 00:17 calcitriol AdvReac Unknown Verified 12/08/23 00:17 cefadroxil AdvReac Unknown Verified 12/08/23 00:17 enalapril AdvReac Unknown Verified 12/08/23 00:17 hydrocodone [From Vicodin] AdvReac Nausea & Verified 12/08/23 00:17 Vomiting Influenza Virus Vaccines AdvReac Unknown Verified 12/08/23 00:17 levofloxacin [From Levaquin] AdvReac Abdominal Verified 12/08/23 00:17 Pain meloxicam [From Mobic] AdvReac Abdominal Verified 12/08/23 00:17 Pain morphine AdvReac Unknown Verified 12/08/23 00:17 propoxyphene AdvReac Unknown Verified 12/08/23 00:17 Sulfa (Sulfonamide AdvReac Vomiting Verified 12/08/23 00:17 Antibiotics) tramadol AdvReac no Verified 12/08/23 00:17 allergy, just does not work for him Physical Exam Vitals: Vital Signs Temp Pulse Pulse Resp BP BP Pulse Ox 12/08/23 07:00 97.9 F 72 16 101/71 94 L 12/08/23 04:56 97.9 F 94 15 119/80 12/08/23 04:10 97.8 F 61 16 126/78 96 12/08/23 00:16 98.3 F 84 18 108/59 98 Intake and Output 12/07/23 12/08/23 12/08/23 22:59 06:59 14:59 Other: # Voids 0 Weight 81.647 kg Results - Lab Results Most recent lab results Calcium 10.0 mg/dL (8.4-10.2) 12/08/23 02:14 Phosphorus 6.4 mg/dL (2.5-4.5) H 12/08/23 02:14 Magnesium 2.0 mg/dL (1.6-2.3) 12/08/23 02:14 12/08/23 02:14 12/08/23 02:14 Assessment and Plan Plan: Assessment: 1. End-stage renal disease maintained on home hemodialysis. 2. Dislodged left femoral dialysis catheter. 3. Hyperkalemia secondary to chronic kidney disease. 4. Chronic kidney disease mineral bone disease maintained on Tums and Fosrenol and calcitriol outpatient. 5. Chronic hypotension maintained on midodrine outpatient. Plan: Check potassium level stat. Hemodialysis once has dialysis access. Vascular surgery consulted. Thank you for the consultation. I will continue to follow the patient with you during his hospital stay.
--- NOTE | 2023-12-08 09:41 | P.GSCN ---
History of Present Illness Consult date: 12/08/23 Reason for Consult: Hemodialysis catheter issue Requesting physician: Kinga Issa History of present illness: 53-year-old male presenting to the emergency department with complaints of permacath complications and bleeding from permacath sitelast week and now states yesterday it just fell out when he got up to go to the bathroom. Vascular surgery was consulted for HD catheter issues.. Patient has end-stage renal d isease on hemodialysis Friday and Friday. He does his dialysis at home. Last completed dialysis on Friday without incident. He is well-known to vascular surgery and follows with Dr. Agarwal. He has had previous complications with his permacath and is required exchanges in the past as well as explantation's for infection. States that ever since he had his new catheter put in his left groin he has had complications with dialysis. He states that he had no bleeding when it came out. He present to the emergency department for further evaluation. Currently denies any shortness of breath, chest pain, abdominal pain, nausea or vomiting. No pain in the left groin. Review of Systems A 14 point review systems was completed all pertinent positives and negatives as stated in the HPI. Past Medical History Past Medical History: Atrial Fibrillation, Dialysis, Eye Disorder, GERD/Reflux, Renal Disease, Seizure Disorder, Thyroid Disorder Additional Past Medical History / Comment(s): Recent fall with quadriceps tendon rupture. Gout. Bruises easily. 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 Kidney transplant in 1998. Hemodialysis [facility] at home. Hx anemia with blood transfusion. 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 Hx diverticulitis. Hx Shingles 02/2021. Hx approximately 7 grand mal seizures in 2021 when on dialysis, unknown etiology, none since. Has nonactive left arm dialysis graft and functioning right groin dialysis port. Frequent headaches. Low blood pressure at times. History of Any Multi-Drug Resistant Organisms: None Reported Additional Past Surgical History / Comment(s): Fistula placement, thyroidectomy, kidney transplant, toenails removed. Past Anesthesia/Blood Transfusion Reactions: No Reported Reaction Additional Past Anesthesia/Blood Transfusion Reaction / Comm: Blood transfusion - had no issues. Past Psychological History: No Psychological Hx Reported Smoking Status: Never smoker Past Alcohol Use History: None Reported Past Drug Use History: None Reported - Past Family History Mother Family Medical History: Fibromyalgia, Osteoarthritis (OA) Additional Family Medical History / Comment(s): Lupus Family Family Medical History: No Reported History Additional Family Medical History / Comment(s): ETOH abuse Medications and Allergies Home Medications Medication Instructions Recorded Confirmed Type Levothyroxine Sodium [Synthroid] 50 mcg PO DAILY 12/18/17 12/08/23 History Montelukast [Singulair] 10 mg PO HS 12/18/17 12/08/23 History predniSONE 10 mg PO DAILY 04/25/21 12/08/23 History Atorvastatin [Lipitor] 20 mg PO DAILY 10/15/22 12/08/23 History Midodrine HCl [ProAmatine] 10 mg PO 5XD PRN 10/15/22 12/08/23 History calcitrioL 0.25 mcg PO SUTUTHSA 10/15/22 12/08/23 History calcitrioL 0.5 mcg PO MOWEFR 10/15/22 12/08/23 History Omeprazole [PriLOSEC] 20 mg PO HS 04/25/23 12/08/23 History allopurinoL 100 mg PO DAILY 06/23/23 12/08/23 History Metoprolol Tartrate [Lopressor] 25 mg PO BID PRN 12/01/23 12/08/23 History Calcium Carbonate [Tums] 500 mg PO QID PRN 12/08/23 12/08/23 History Allergies Allergy/AdvReac Type Severity Reaction Status Date / Time adhesive tape Allergy Itching Verified 12/08/23 09:47 codeine Allergy Rash/Hives Verified 12/08/23 09:47 cyclobenzaprine Allergy Rash/Hives Verified 12/08/23 09:47 [From Flexeril] diphenhydramine Allergy Anaphylaxis Verified 12/08/23 09:47 [From Benadryl] hydromorphone [From Dilaudid] Allergy Rash/Hives Verified 12/08/23 09:47 hydroxyzine Allergy Anaphylaxis Verified 12/08/23 09:47 Iodinated Contrast Media Allergy Anaphylaxis Verified 12/08/23 09:47 [Iodinated Contrast- Oral and IV Dye] pantoprazole [From Protonix] Allergy Anaphylaxis Verified 12/08/23 09:47 Penicillins Allergy Rash/Hives Verified 12/08/23 09:47 potassium chloride Allergy Rash/Hives Verified 12/08/23 09:47 pregabalin [From Lyrica] Allergy Anaphylaxis Verified 12/08/23 09:47 sevelamer Allergy Rash/Hives Verified 12/08/23 09:47 warfarin [From Coumadin] Allergy Anaphylaxis Verified 12/08/23 09:47 acetaminophen [From Vicodin] AdvReac Nausea & Verified 12/08/23 09:47 Vomiting aripiprazole [From Abilify] AdvReac Abdominal Verified 12/08/23 09:47 Pain aztreonam AdvReac Unknown Verified 12/08/23 09:47 calcitriol AdvReac Unknown Verified 12/08/23 09:47 cefadroxil AdvReac Unknown Verified 12/08/23 09:47 enalapril AdvReac Unknown Verified 12/08/23 09:47 hydrocodone [From Vicodin] AdvReac Nausea & Verified 12/08/23 09:47 Vomiting Influenza Virus Vaccines AdvReac Unknown Verified 12/08/23 09:47 levofloxacin [From Levaquin] AdvReac Abdominal Verified 12/08/23 09:47 Pain meloxicam [From Mobic] AdvReac Abdominal Verified 12/08/23 09:47 Pain morphine AdvReac Unknown Verified 12/08/23 09:47 propoxyphene AdvReac Unknown Verified 12/08/23 09:47 Sulfa (Sulfonamide AdvReac Vomiting Verified 12/08/23 09:47 Antibiotics) tramadol AdvReac no Verified 12/08/23 09:47 allergy, just does not work for him Surgical - Exam Vital Signs Temp Pulse Resp BP Pulse Ox 98.3 F 84 18 108/59 98 12/08/23 00:16 12/08/23 00:16 12/08/23 00:16 12/08/23 00:16 12/08/23 00:16 General appearance: The patient is alert, oriented, appears in no acute distress. HET: Head is normocephalic and atraumatic. Heart: Regular. Lungs: Equal expansion, normal respiratory effort. Abdomen: Soft, nontender, nondistended. Extremities: Normal skin color and turgor. Left groin HD tunneled catheter site without any bleeding, hematoma. There are no sutures present. Palpable femoral pulse. Neurological: No focal deficits. Results - Labs 12/08/23 02:14 12/08/23 07:49 Abnormal Lab Results - Last 24 Hours (Table) 12/08/23 12/08/23 Range/Units 02:14 02:14 RBC 3.57 L (4.30-5.90) m/uL Hgb 11.4 L (13.0-17.5) gm/dL Hct 36.9 L (39.0-53.0) % MCV 103.3 H (80.0-100.0) fL MCHC 30.9 L (31.0-37.0) g/dL Plt Count 148 L (150-450) k/uL Lymphocytes # 0.9 L (1.0-4.8) k/uL Potassium 6.0 H (3.5-5.1) mmol/L BUN 64 H (9-20) mg/dL Creatinine 9.39 H* (0.66-1.25) mg/dL Phosphorus 6.4 H (2.5-4.5) mg/dL Diabetes panel 12/08/23 Range/Units 02:14 Sodium 137 (137-145) mmol/L Potassium 6.0 H (3.5-5.1) mmol/L Chloride 100 (98-107) mmol/L Carbon Dioxide 25 (22-30) mmol/L BUN 64 H (9-20) mg/dL Creatinine 9.39 H* (0.66-1.25) mg/dL Glucose 96 (74-99) mg/dL Calcium 10.0 (8.4-10.2) mg/dL AST 28 (17-59) U/L ALT 12 (4-49) U/L Alkaline Phosphatase 52 (38-126) U/L Total Protein 6.5 (6.3-8.2) g/dL Albumin 4.4 (3.5-5.0) g/dL Calcium panel 12/08/23 Range/Units 02:14 Calcium 10.0 (8.4-10.2) mg/dL Phosphorus 6.4 H (2.5-4.5) mg/dL Albumin 4.4 (3.5-5.0) g/dL Pituitary panel 12/08/23 Range/Units 02:14 Sodium 137 (137-145) mmol/L Potassium 6.0 H (3.5-5.1) mmol/L Chloride 100 (98-107) mmol/L Carbon Dioxide 25 (22-30) mmol/L BUN 64 H (9-20) mg/dL Creatinine 9.39 H* (0.66-1.25) mg/dL Glucose 96 (74-99) mg/dL Calcium 10.0 (8.4-10.2) mg/dL Adrenal panel 12/08/23 Range/Units 02:14 Sodium 137 (137-145) mmol/L Potassium 6.0 H (3.5-5.1) mmol/L Chloride 100 (98-107) mmol/L Carbon Dioxide 25 (22-30) mmol/L BUN 64 H (9-20) mg/dL Creatinine 9.39 H* (0.66-1.25) mg/dL Glucose 96 (74-99) mg/dL Calcium 10.0 (8.4-10.2) mg/dL Total Bilirubin 0.9 (0.2-1.3) mg/dL AST 28 (17-59) U/L ALT 12 (4-49) U/L Alkaline Phosphatase 52 (38-126) U/L Total Protein 6.5 (6.3-8.2) g/dL Albumin 4.4 (3.5-5.0) g/dL Assessment and Plan Assessment: 1. End-stage renal disease requiring hemodialysis 2. Tunneled hemodialysis catheter explanted per patient Plan: 1. Keep n.p.o. 2. Plan for tunneled catheter placement today 3. Continue with HD recommendations per nephrology Thank you for this consultation, we will continue to follow. The impression and plan of care has been dictated as directed. I performed a history and examination of this patient, discussed the same with the dictator. I agree with the dictator's note ,documented as a scribe. Any additional findings or plans will be noted.
--- NOTE | 2023-12-08 10:06 | US ---
EXAMINATION TYPE: US groin LT DATE OF EXAM: 12/08/2023 COMPARISON: NONE CLINICAL INDICATION: Male, 53 years old with history of accidental dislodgement of permacath; Patient states permacath fell out last night 12/07/23. TECHNIQUE: Scanned left groin where cath was. FINDINGS: No evidence of hematoma seen. *There appears to be internal echoes within a superficial vein. No color flow seen within the vessel. This appears to be clotted up to the junction with the deep system at the CFV. Vessel does not comp ress. This vessel does not appear to be the greater saphenous vein. CFV shows color flow and no thrombus was seen in compressible CFV. IMPRESSION: 1. Superficial femoral vein deep venous thrombosis. There appears to be deep venous thro mbosis within the left common femoral vein. Consider complete, lower extremity ultrasound for deep ve nous thrombosis. [facility], , 12/08/2023 10:03 AM
[2023-12-08 10:07] LABS: African American GFR (CKD) 6 (>60 ml/min/1.73 sqM); Anion Gap 14 mmol/L; Blood Urea Nitrogen 65 mg/dL (9-20); Carbon Dioxide 22 mmol/L (22-30); Chloride 101 mmol/L (98-107); Glucose 77 mg/dL (74-99); Non-African American GFR(CKD) 5 (>60 ml/min/1.73 sqM); Potassium 4.9 mmol/L (3.5-5.1); Sodium 137 mmol/L (137-145)
[2023-12-08] MEDS: SODIUM ZIRCONIUM CYCLOSILICATE 10 GM PACKET PO ONE (10:20)
--- NOTE | 2023-12-08 11:42 | P.PN ---
Progress Note - Text Progress Note Date: 12/08/23 Patient was seen and examined, awaiting vascular evaluation for placing a new dialysis catheter. Patient seen by nephrology.
[2023-12-08] MEDS: MIDAZOLAM 2 MG/2 ML VIAL IVP ONE (13:54)
[2023-12-08] MEDS: fentaNYL (PF) 50 MCG/ML 2 ML AMP IVP ONE (13:54)
[2023-12-08] MEDS: LIDOCAINE 1% INJ 10MG/ML (20 ML MDV) SQ ONE (13:54)
--- NOTE | 2023-12-08 15:01 | P.OP ---
Date of Procedure: 12/08/23 Preoperative Diagnosis: Chronic renal failure, hemodialysis dependent. Postoperative Diagnosis: Same. Procedure(s) Performed: Ultrasound and fluoroscopically guided placement of a tunneled hemodialysis catheter via the left femoral venous approach utilizing 28 cm palindrome catheter.. Anesthesia: local (With 1 mg of Versed and 25 mcg of fentanyl administered intravenously.) Surgeon: Scottie Agarwal Estimated Blood Loss (ml): 10 IV fluids (ml): 0 Urine output (ml): 0 Pathology: none sent Condition: stable Disposition: no change Indications for Procedure: Patient is a 53-year-old male with a longstanding history of renal failure which is dialysis dependent. He previously had a tunneled hemodialysis catheter placed via the left femoral vein approach approximately 4 to 6 weeks ago. This was working well however the catheter "fell out" yesterday. Patient is offered placement of a new catheter today. Description of Procedure: Patient was brought to the special procedure suite. He received 1 g of Ancef administered in the perioperative phase. The left groin was sterilely prepped and draped in usual manner. Utilizing ultrasound the left femoral vein was identified. This was normally p atent and compressible and free of visible thrombus. 1% Xylocaine was utilized for local anesthesia tissue overlying the left femoral vein. Through this anesthetized area with the aid of ultrasound a micropuncture needle was utilized to cannulate the vein. Once cannulated soft tipped guidewire was advanced into the vein. The needle was withdrawn and a micropuncture sheath and dilator were advanced over the guidewire. 28 cm palindrome catheter was selected. 1% Xylocaine was utilized for local anesthesia of the tissues approximately 3 cm inferior to the venous access site. Skin incision was made at this site and the catheter was tunneled between the 2 incisions. The micropuncture dilator and guidewire were withdrawn and a 0.035 inch guidewire was advanced through the micropuncture sheath and the sheath was then withdrawn. Vessel dilators were utilized to dilate the tract. Subsequently the dialysis catheter sheath and dilator were advanced over the guidewire. Guidewire was withdrawn as was the dilator and through the sheath the catheter was advanced in the sheath was peeled away. Fluoroscopy demonstrated the tip of the catheter to be in the distal inferior vena cava. Both limbs of the catheter were utilized to easily aspirate blood and each was then flushed with heparinized saline solution and caps were placed. The catheter was secured to the skin with nylon suture. The inguinal area wound was closed with 4-0 Monocryl. Appropriate dressings were applied. Patient tolerated the procedure well and was returned to his room in satisfactory and stable condition. Total moderate conscious sedation time: 12 minutes. Total fluoroscopy time: 0.8 minutes. No contrast given.
[2023-12-08] MEDS ORDERED: METOPROLOL TARTRATE 25 MG TAB PO PRN (15:13)
[2023-12-08] MEDS ORDERED: CALCIUM CARBONATE 500 MG CHEWABLE PO PRN (15:13)
[2023-12-08] MEDS: CALCIUM CARBONATE 500 MG CHEWABLE PO SCH (15:14)
--- NOTE | 2023-12-08 15:41 | IR ---
EXAMINATION TYPE: IR cvc insert non tunneled DATE OF EXAM: 12/08/2023 COMPARISON: NONE HISTORY: Fluoroscopy time. Fluoroscopy was provided to the referring clinician. [facility], , 12/08/2023 3:39 PM
[2023-12-08] MEDS: LEVOTHYROXINE 50 MCG TAB PO SCH (16:38)
[2023-12-08] MEDS: ATORVASTATIN 20 MG TAB PO SCH (16:38)
[2023-12-08] MEDS: allopurinoL 100 MG TAB PO SCH (16:39)
[2023-12-08] MEDS: MIDODRINE 5 MG TAB PO PRN (16:48)
[2023-12-08 18:14] VITALS: TEMP 97.6
[2023-12-08 19:35] VITALS: BP 93/60; PULSE 110; RESP 18
[2023-12-08] MEDS ORDERED: MONTELUKAST 10 MG TAB PO SCH (21:00)
[2023-12-08] MEDS ORDERED: NON FORMULARY DRUG (Omeprazole 20 MG Capsule.Dr) PO SCH (21:00)
[2023-12-09] MEDS ORDERED: predniSONE 10 MG TAB PO SCH (09:00)
== END 2023-12-08 20:34 | disposition left against medical advice (07) ==
LOC: EC 00:11 → 6NMEDSUR 01:51
PROVIDERS: ADMIT Internal Medicine; ATTEND Internal Medicine
DX: T82.41XA Breakdown (mechanical) of vascular dialysis catheter, initial encounter (principal); Y71.2 Prosthetic and other implants, materials and accessory cardiovascular devices associated with adverse incidents; I95.89 Other hypotension; I12.0 Hypertensive chronic kidney disease with stage 5 chronic kidney disease or end stage renal disease; N18.6 End stage renal disease; N25.0 Renal osteodystrophy; E87.5 Hyperkalemia; I48.91 Unspecified atrial fibrillation; K21.9 Gastro-esophageal reflux disease without esophagitis; E89.0 Postprocedural hypothyroidism; Z94.0 Kidney transplant status; Z99.2 Dependence on renal dialysis; Z79.52 Long term (current) use of systemic steroids; Z79.82 Long term (current) use of aspirin; Z79.890 Hormone replacement therapy; Z79.899 Other long term (current) drug therapy; Z88.0 Allergy status to penicillin; Z88.1 Allergy status to other antibiotic agents; Z88.2 Allergy status to sulfonamides; Z88.5 Allergy status to narcotic agent; Z53.29 Procedure and treatment not carried out because of patient's decision for other reasons
CPT/HCPCS: 36415; 36558; 76937; 77001; 80048; 80053; 83735; 84100; 85025; 85610; 85730; 90935; 96365; 99284

== ENCOUNTER 2024-01-28 11:34 | Inpatient (IN) | payer MEDICARE ==
--- NOTE | 2024-01-28 12:32 | ED ---
General Adult HPI - General Chief complaint: Weakness Stated complaint: Dizziness/back pain Time Seen by Provider: 01/28/24 12:07 Source: patient, family Mode of arrival: wheelchair Limitations: no limitations - History of Present Illness Initial comments: Dictation was produced using [employer] dictation software. please excuse any grammatical, word or spelling errors. Chief Complaint: 53-year-old male with multiple comorbidities presents to the emergency department for dizziness History of Present Illness: Patient is 53-year-old male with multiple c omorbidities. He has history of lifelong A-fib, ESRD. Patient had failed grafts and now gets dialysis through left femoral percutaneous HD catheter. He has a failed transplant takes prednisone. Patient on multiple medications. States that he feels dizzy lightheaded. Seems to be worse whenever he stands. Patient gets dialysis Friday. Denies any fever constitutional symptoms. Complains of headache and backache. The symptoms of his aches are mild. The ROS documented in this emergency department record has been reviewed and confirmed by me. Those systems with pertinent positive or negative responses have been documented in the HPI. All other systems are other negative and/or noncontributory. - Related Data Home Medications Medication Instructions Recorded Confirmed Levothyroxine Sodium [Synthroid] 50 mcg PO DAILY 12/18/17 01/28/24 Montelukast [Singulair] 10 mg PO HS 12/18/17 01/28/24 predniSONE 10 mg PO DAILY 04/25/21 01/28/24 Atorvastatin [Lipitor] 20 mg PO DAILY 10/15/22 01/28/24 Midodrine HCl [ProAmatine] 10 mg PO QID 10/15/22 01/28/24 calcitrioL 0.25 mcg PO SUTUTHSA 10/15/22 01/28/24 calcitrioL 0.5 mcg PO MOWEFR 10/15/22 01/28/24 Omeprazole [PriLOSEC] 20 mg PO HS 04/25/23 01/28/24 allopurinoL 100 mg PO DAILY 06/23/23 01/28/24 Calcium Carbonate [Tums] 500 mg PO QID PRN 12/08/23 01/28/24 Fludrocortisone [Florinef] 0.1 mg PO DIRECTED 01/28/24 01/28/24 Allergies Allergy/AdvReac Type Severity Reaction Status Date / Time adhesive tape Allergy Itching Verified 01/28/24 12:57 codeine Allergy Rash/Hives Verified 01/28/24 12:57 cyclobenzaprine Allergy Rash/Hives Verified 01/28/24 12:57 [From Flexeril] diphenhydramine Allergy Anaphylaxis Verified 01/28/24 12:57 [From Benadryl] hydromorphone [From Dilaudid] Allergy Rash/Hives Verified 01/28/24 12:57 hydroxyzine Allergy Anaphylaxis Verified 01/28/24 12:57 Iodinated Contrast Media Allergy Anaphylaxis Verified 01/28/24 12:57 [Iodinated Contrast- Oral and IV Dye] pantoprazole [From Protonix] Allergy Anaphylaxis Verified 01/28/24 12:57 Penicillins Allergy Rash/Hives Verified 01/28/24 12:57 potassium chloride Allergy Rash/Hives Verified 01/28/24 12:57 pregabalin [From Lyrica] Allergy Anaphylaxis Verified 01/28/24 12:57 sevelamer Allergy Rash/Hives Verified 01/28/24 12:57 warfarin [From Coumadin] Allergy Anaphylaxis Verified 01/28/24 12:57 acetaminophen [From Vicodin] AdvReac Nausea & Verified 01/28/24 12:57 Vomiting aripiprazole [From Abilify] AdvReac Abdominal Verified 01/28/24 12:57 Pain aztreonam AdvReac Unknown Verified 01/28/24 12:57 calcitriol AdvReac Unknown Verified 01/28/24 12:57 cefadroxil AdvReac Unknown Verified 01/28/24 12:57 enalapril AdvReac Unknown Verified 01/28/24 12:57 hydrocodone [From Vicodin] AdvReac Nausea & Verified 01/28/24 12:57 Vomiting Influenza Virus Vaccines AdvReac Unknown Verified 01/28/24 12:57 levofloxacin [From Levaquin] AdvReac Abdominal Verified 01/28/24 12:57 Pain meloxicam [From Mobic] AdvReac Abdominal Verified 01/28/24 12:57 Pain morphine AdvReac Unknown Verified 01/28/24 12:57 propoxyphene AdvReac Unknown Verified 01/28/24 12:57 Sulfa (Sulfonamide AdvReac Vomiting Verified 01/28/24 12:57 Antibiotics) tramadol AdvReac no Verified 01/28/24 12:57 allergy, just does not work for him Review of Systems ROS Statement: Those systems with pertinent positive or pertinent negative responses have been documented in the HPI. ROS Other: All systems not noted in ROS Statement are negative. Past Medical History Past Medical History: Atrial Fibrillation, Dialysis, Eye Disorder, GERD/Reflux, Renal Disease, Seizure Disorder, Thyroid Disorder Additional Past Medical History / Comment(s): Recent fall with quadriceps tendon rupture. Gout. Bruises easily. 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 Kidney transplant in 1998. Hemodialysis MOWEFRSA at home. Hx anemia with blood transfusion. 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 Hx diverticulitis. Hx Shingles 02/2021. Hx approximately 7 grand mal seizures in 2021 when on dialysis, unknown etiology, none since. Has nonactive left arm dialysis graft and functioning right groin dialysis port. Frequent headaches. Low blood pressure at times. History of Any Multi-Drug Resistant Organisms: None Reported Additional Past Surgical History / Comment(s): Fistula placement, thyroidectomy, kidney transplant, toenails removed. Past Anesthesia/Blood Transfusion Reactions: No Reported Reaction Additional Past Anesthesia/Blood Transfusion Reaction / Comment(s): Blood transfusion - had no issues. Past Psychological History: No Psychological Hx Reported Smoking Status: Never smoker Past Alcohol Use History: None Reported Past Drug Use History: None Reported - Past Family History Mother Family Medical History: Fibromyalgia, Osteoarthritis (OA) Additional Family Medical History / Comment(s): Lupus Family Family Medical History: No Reported History Additional Family Medical History / Comment(s): ETOH abuse General Exam - General Exam Comments Initial Comments: PHYSICAL EXAM: General Impression: Alert and oriented x3, not in acute distress HEENT: Normocephalic atraumatic, extra-ocular movements intact, pupils equal and reactive to light bilaterally, dry mucous membranes Cardiovascular: Heart regular rate and rhythm Chest: Able to complete full sentences, no retractions, no tachypnea Abdomen: abdomen soft, non-tender, non-distended, no organomegaly Musculoskeletal: Pulses present and equal in all extremities, no peripheral edema Motor: no focal deficits noted Neurological: CN II-XII grossly intact, no focal motor or sensory deficits noted Skin: Intact with no visualized rashes Psych: Normal affect and mood Limitations: no limitations Course Vital Signs 01/28/24 01/28/24 01/28/24 11:44 12:02 12:42 Temperature 99.8 F H Pulse Rate 115 H 117 H 128 H Respiratory 22 16 18 Rate Blood Pressure 82/58 94/67 65/44 O2 Sat by Pulse 95 90 L 91 L Oximetry 01/28/24 01/28/24 01/28/24 12:45 12:53 13:22 Temperature 99.5 F Pulse Rate 121 H 113 H 114 H Respiratory 18 20 20 Rate Blood Pressure 77/65 75/34 66/47 O2 Sat by Pulse 90 L 95 Oximetry 01/28/24 01/28/24 01/28/24 13:42 13:52 14:16 Temperature Pulse Rate 112 H 112 H 120 H Respiratory 20 20 20 Rate Blood Pressure 85/41 78/51 89/50 O2 Sat by Pulse 96 97 96 Oximetry 01/28/24 01/28/24 01/28/24 14:27 14:42 15:12 Temperature Pulse Rate 112 H 104 H 107 H Respiratory 18 22 18 Rate Blood Pressure 80/52 97/49 79/68 O2 Sat by Pulse 96 96 96 Oximetry 01/28/24 15:55 Temperature Pulse Rate Respiratory Rate Blood Pressure 79/53 O2 Sat by Pulse Oximetry EKG Findings - EKG Comments: EKG Findings:: My EKG interpretation: Ventricular rate 118, A-fib with RVR, QRS 102, QTc 388. No QTC prolongation, no ST or T-wave changes noted. EKG compared to July 02, 2023 showing no changes. Overall, this EKG is unremarkable Medical Decision Making - Medical Decision Making Was pt. sent in by a medical professional or institution (, PA, BASE MANAGER, urgent care, hospital, or alf...) When possible be specific @ -No Did you speak to anyone other than the patient for history (EMS, parent, family, police, friend...)? What history was obtained from this source @ -No Did you review nursing and triage notes (agree or disagree)? Why? @ -I reviewed and agree with nursing and triage notes Were old charts reviewed (outside hosp., previous admission, EMS record, old EKG , old radiological studies, urgent care reports/EKG's, alf records)? Report findings @ -No old charts were reviewed Differential Diagnosis (chest pain, altered mental status, abdominal pain women, abdominal pain men, vaginal bleeding, musculoskeletal, weakness, fever, dyspnea, syncope, headache, dizziness, GI bleed, back pain, seizure, CVA, palpatations, mental health)? @ -Differential Dizziness: Benign paroxysmal positional Vertigo, Meniere's disease, otitis media, acoustic neuroma, vertebrobasilar insufficiency, cerebellar stroke, encephalitis, hypovolemic, arrhythmia, coronary artery syndrome, anemia, this is not meant to be an all-inclusive list EKG interpreted by me (3pts min.). @ -See above X-rays interpreted by me (1pt min.). @ -Chest x-ray shows no acute processes CT interpreted by me (1pt min.). @ -None done U/S interpreted by me (1pt. min.). @ -None done What testing was considered but not performed or refused? (CT, X-rays, U/S, labs)? Why? @ -None What meds were considered but not given or refused? Why? @ -None Was smoking cessation discussed for >3mins.? @ -No Were there social determinants of health that impacted care today? How? (Homelessness, low income, unemployed, alcoholism, drug addiction, transportation, low edu. Level, literacy, decrease access to med. care, shelter, rehab)? @ -No Was there de-escalation of care discussed even if they declined (Discuss DNR or withdrawal of care, Hospice)? DNR status @ -No What co-morbidities impacted this encounter? (DM, HTN, Smoking, COPD, CAD, Cancer, CVA, ARF, Chemo, Hep., AIDS, mental health diagnosis, sleep apnea, morbid obesity)? @ -ESRD, renal transplant history, A-fib Was patient admitted / discharged? Hospital course, mention meds given and route, prescriptions, significant lab abnormalities, going to OR and other pertinent info. @ -53-year-old male with multiple comorbidities presents to the ER for dizziness. Vital signs upon arrival shows tachycardia. Patient well-appearing. He has a history of A-fib. He is in slight RVR. Blood pressures were also 82/58. Patient has labile blood pressures that range between 60s and 90s. Seems his blood pressure has been trending upwards since IV fluids. Patient states he missed his last 2 doses of midodrine. Laboratory evaluation obtained. Labs are within acceptable limits. Patient reevaluated at bedside 4:31 PM states that he feels improved. Given patient's low blood pressures he will be admitted to the ICU for monitoring. Patient well-appearing. Given broad- spectrum antibiotics and stress dose hydrocortisone. Did you discuss the management of the patient with other professionals (professionals i.e. , PA, BASE MANAGER, lab, RT, psych nurse, social worker palliative care, geothermal operations engineer, teacher, parole or probation officer, child welfare caseworker)? Give summary @ -No Was critical care preformed (if so, how long)? @ -Yes, 77 minutes Undiagnosed new problem with uncertain prognosis? @ -No Drug Therapy requiring intensive monitoring for toxicity (Heparin, Nitro, In sulin, Cardizem)? @ -No Were any procedures done? @ -No Diagnosis/symptom? Acute, or Chronic, or Acute on Chronic? Uncomplicated (without systemic symptoms) or Complicated (systemic symptoms)? @ -Symptomatic hypotension Side effects of treatment? @ -No Exacerbation, Progression, or Severe Exacerbation? @ -No Poses a threat to life or bodily function? How? (Chest pain, USA, HI, pneumonia, PE, COPD, DKA, ARF, appy, cholecystitis, CVA, Diverticulitis, Homicidal, Suicidal, threat to staff... and all critical care pts) @ -yes - Lab Data Result diagrams: 01/28/24 12:27 01/28/24 12:27 Lab Results 01/28/24 01/28/24 01/28/24 Range/Units 12:27 12:27 12:27 WBC 5.8 (3.8-10.6) k/uL RBC 4.06 L (4.30-5.90) m/uL Hgb 12.1 L (13.0-17.5) gm/dL Hct 39.0 (39.0-53.0) % MCV 95.9 D (80.0-100.0) fL MCH 29.8 (25.0-35.0) pg MCHC 31.1 (31.0-37.0) g/dL RDW 15.1 (11.5-15.5) % Plt Count 128 L (150-450) k/uL MPV 7.9 Neutrophils % 85 % Lymphocytes % 10 % Monocytes % 4 % Eosinophils % 0 % Basophils % 0 % Neutrophils # 4.9 (1.3-7.7) k/uL Lymphocytes # 0.6 L (1.0-4.8) k/uL Monocytes # 0.2 (0-1.0) k/uL Eosinophils # 0.0 (0-0.7) k/uL Basophils # 0.0 (0-0.2) k/uL Hypochromasia Moderate Poikilocytosis Slight PT 10.1 (10.0-12.5) sec INR 0.9 (<1.2) APTT 29.4 (22.0-30.0) sec Sodium 134 L (137-145) mmol/L Potassium 3.9 (3.5-5.1) mmol/L Chloride 93 L (98-107) mmol/L Carbon Dioxide 25 (22-30) mmol/L Anion Gap 16 mmol/L BUN 48 H (9-20) mg/dL Creatinine 7.83 H* (0.66-1.25) mg/dL Est GFR (CKD-EPI)AfAm 8 (>60 ml/min/1.73 sqM) Est GFR (CKD-EPI)NonAf 7 (>60 ml/min/1.73 sqM) Glucose 84 (74-99) mg/dL Plasma Lactic Acid Cristobal (0.7-2.0) mmol/L Calcium 9.4 (8.4-10.2) mg/dL Magnesium 1.7 (1.6-2.3) mg/dL Total Bilirubin 0.5 (0.2-1.3) mg/dL AST 27 (17-59) U/L ALT 14 (4-49) U/L Alkaline Phosphatase 70 (38-126) U/L Total Protein 6.6 (6.3-8.2) g/dL Albumin 4.3 (3.5-5.0) g/dL 01/28/24 Range/Units 12:27 WBC (3.8-10.6) k/uL RBC (4.30-5.90) m/uL Hgb (13.0-17.5) gm/dL Hct (39.0-53.0) % MCV (80.0-100.0) fL MCH (25.0-35.0) pg MCHC (31.0-37.0) g/dL RDW (11.5-15.5) % Plt Count (150-450) k/uL MPV Neutrophils % % Lymphocytes % % Monocytes % % Eosinophils % % Basophils % % Neutrophils # (1.3-7.7) k/uL Lymphocytes # (1.0-4.8) k/uL Monocytes # (0-1.0) k/uL Eosinophils # (0-0.7) k/uL Basophils # (0-0.2) k/uL Hypochromasia Poikilocytosis PT (10.0-12.5) sec INR (<1.2) APTT (22.0-30.0) sec Sodium (137-145) mmol/L Potassium (3.5-5.1) mmol/L Chloride (98-107) mmol/L Carbon Dioxide (22-30) mmol/L Anion Gap mmol/L BUN (9-20) mg/dL Creatinine (0.66-1.25) mg/dL Est GFR (CKD-EPI)AfAm (>60 ml/min/1.73 sqM) Est GFR (CKD-EPI)NonAf (>60 ml/min/1.73 sqM) Glucose (74-99) mg/dL Plasma Lactic Acid Cristobal 1.4 (0.7-2.0) mmol/L Calcium (8.4-10.2) mg/dL Magnesium (1.6-2.3) mg/dL Total Bilirubin (0.2-1.3) mg/dL AST (17-59) U/L ALT (4-49) U/L Alkaline Phosphatase (38-126) U/L Total Protein (6.3-8.2) g/dL Albumin (3.5-5.0) g/dL Disposition Clinical Impression: Hypotension Disposition: ADMITTED IP TO THIS HOSP Condition: Critical Referrals: Mychal Jerome DO [Primary Care Provider] - 1-2 days Decision Time: 16:32
[2024-01-28] MEDS ORDERED: VANCOMYCIN IV PER PHARMACY 1 EACH MISC MISCELLANE PRN (12:37)
[2024-01-28] MEDS: SODIUM CHLORIDE 0.9% 1,000 ML IV STA (12:42)
[2024-01-28] MEDS: HYDROCORTISONE SUCCINATE 100 MG/2 ML VIAL IV STA (12:47)
[2024-01-28 13:03] LABS: ALT 14 U/L (4-49); AST 27 U/L (17-59); African American GFR (CKD) 8 (>60 ml/min/1.73 sqM); Albumin 4.3 g/dL (3.5-5.0); Alkaline Phosphatase 70 U/L (38-126); Anion Gap 16 mmol/L; Blood Urea Nitrogen 48 mg/dL (9-20); Calcium 9.4 mg/dL (8.4-10.2); Carbon Dioxide 25 mmol/L (22-30); Chloride 93 mmol/L (98-107); Glucose 84 mg/dL (74-99); Magnesium 1.7 mg/dL (1.6-2.3); Non-African American GFR(CKD) 7 (>60 ml/min/1.73 sqM); Potassium 3.9 mmol/L (3.5-5.1); Sodium 134 mmol/L (137-145); Total Bilirubin 0.5 mg/dL (0.2-1.3); Total Protein 6.6 g/dL (6.3-8.2)
--- NOTE | 2024-01-28 13:07 | XR ---
EXAMINATION TYPE: XR chest 2V DATE OF EXAM: 01/28/2024 1:02 PM COMPARISON: CT chest abdomen 07/01/2023, chest radiograph 06/30/2023 TECHNIQUE: XR chest 2V Frontal and lateral views of the chest. CLINICAL INDICATION:Male, 53 years old with history of weakness; FINDINGS: Lungs/Pleura: There is no evidence of pleural effusion or pneumothorax. Bilateral lower lobe linear a telectasis. Pulmonary vascularity: Unremarkable. Heart/mediastinum: Cardiomediastinal silhouette is unremarkable. Musculoskeletal: No acute osseous pathology. IMPRESSION: Bilateral lower lobe linear atelectasis. No focal consolidation. [facility], , 01/28/2024 1:04 PM
[2024-01-28 13:08] LABS: INR 0.9 (<1.2); Partial Thromboplastin Time 29.4 sec (22.0-30.0); Prothrombin Time 10.1 sec (10.0-12.5)
[2024-01-28 13:13] LABS: Basophils % (A) 0 %; Eosinophils % (A) 0 %; HGB 12.1 gm/dL (13.0-17.5); Hypochromasia Moderate; Lymphocytes # (A) 0.6 k/uL (1.0-4.8); Lymphocytes % (A) 10 %; MCH 29.8 pg (25.0-35.0); MCHC 31.1 g/dL (31.0-37.0); Mean Platelet Volume 7.9; Monocytes # (A) 0.2 k/uL (0-1.0); Monocytes % (A) 4 %; Neutrophils # (A) 4.9 k/uL (1.3-7.7); Neutrophils % (A) 85 %; Platelet Count 128 k/uL (150-450); Poikilocytosis Slight; RBC 4.06 m/uL (4.30-5.90); RDW 15.1 % (11.5-15.5); WBC 5.8 k/uL (3.8-10.6)
[2024-01-28 13:15] LABS: MCV 95.9 fL (80.0-100.0)
[2024-01-28] MEDS: CEFEPIME 2 GM in SODIUM CHLORIDE 0.9% 100 ML IVPB STA (13:26)
[2024-01-28] MEDS: VANCOMYCIN 1,500 MG in SODIUM CHLORIDE 0.9% 500 ML 500 ML IVPB ONE (14:23)
[2024-01-28] MEDS: SODIUM CHLORIDE 0.9% 500 ML 500 ML IV STA (14:26)
[2024-01-28] MEDS ORDERED: NALOXONE 0.4 MG/ML 1 ML VIAL IV PRN (16:23)
[2024-01-28] MEDS: MIDODRINE 5 MG TAB PO STA (16:55)
[2024-01-28] MEDS: SODIUM CHLORIDE 0.9% 1,000 ML IV SCH (16:56)
[2024-01-28 20:04] LABS: Glucose,Whole Blood 103 mg/dL (70-110)
[2024-01-28] MEDS: ACETAMINOPHEN TAB 325 MG TAB PO PRN (23:18)
[2024-01-29 06:30] LABS: African American GFR (CKD) 7 (>60 ml/min/1.73 sqM); Anion Gap 15 mmol/L; Blood Urea Nitrogen 62 mg/dL (9-20); Calcium 8.1 mg/dL (8.4-10.2); Carbon Dioxide 19 mmol/L (22-30); Chloride 101 mmol/L (98-107); Glucose 67 mg/dL (74-99); Magnesium 1.7 mg/dL (1.6-2.3); Non-African American GFR(CKD) 6 (>60 ml/min/1.73 sqM); Potassium 3.8 mmol/L (3.5-5.1); Sodium 135 mmol/L (137-145)
[2024-01-29 07:19] LABS: Basophils % (A) 0 %; Eosinophils % (A) 0 %; HCT 33.8 % (39.0-53.0); HGB 10.6 gm/dL (13.0-17.5); Hypochromasia Moderate; Lymphocytes # (A) 0.8 k/uL (1.0-4.8); Lymphocytes % (A) 23 %; MCH 30.4 pg (25.0-35.0); MCHC 31.5 g/dL (31.0-37.0); MCV 96.4 fL (80.0-100.0); Mean Platelet Volume 8.3; Monocytes # (A) 0.2 k/uL (0-1.0); Monocytes % (A) 5 %; Neutrophils # (A) 2.5 k/uL (1.3-7.7); Neutrophils % (A) 71 %; Platelet Count 116 k/uL (150-450); Poikilocytosis Slight; RDW 15.1 % (11.5-15.5); WBC 3.5 k/uL (3.8-10.6)
[2024-01-29 08:10] VITALS: TEMP 98.6
[2024-01-29 08:12] LABS: Glucose,Whole Blood 81 mg/dL (70-110)
[2024-01-29 09:31] VITALS: BP 107/90; PULSE 93; RESP 10
[2024-01-29] MEDS: LEVOTHYROXINE 50 MCG TAB PO SCH (11:03)
[2024-01-29] MEDS: FLUDROCORTISONE 0.1 MG TAB PO SCH (11:03)
[2024-01-29] MEDS: ATORVASTATIN 20 MG TAB PO SCH (11:05)
--- NOTE | 2024-01-29 11:35 | P.CNPUL ---
History of Present Illness Consult date: 01/29/24 Requesting physician: Rob Storm Reason for consult: other (ICU management, hypotension) Chief complaint: Lightheadedness and dizziness History of present illness: This is a 53-year-old white male with history of end-stage renal disease, on home hemodialysis, patient is also known to have history of chronic atrial fibrillation, history of kidney transplant/failed patient came into the ER last night complaining of lightheadedness and dizziness for the last few days. Patient gets home dialysis Friday and Friday and has been very compliant with his dialysis. Patient is also known to have history of chronic hypotension maintained on midodrine for low blood pressure. Patient was evaluated in the ER, his diagnostic workup was basically unremarkable, his blood pressure remained a bit low, hence the patient was admitted to the ICU for low blood pressure given fluid boluses and did not require placement on pressors. Placed back on his midodrine, and his blood pressure this morning seems to be relatively stable. Patient is clinically doing great, denies any cough denies any shortness of breath denies any chest pain no headache no nausea no vomiting no abdominal pain, even his symptoms of lightheadedness have resolved, patient is wondering if he could be discharged home. Patient will be seen by nephrology on consultation, and if cleared to go home by nephrology, I will clear the patient to be discharged home. Review of Systems REVIEW OF SYSTEMS: CONSTITUTIONAL: Lightheadedness and weakness. EYES: Negative. ENT: Negative. CARDIAC: Negative. PULMONARY: As above. GI: Negative. GENITOURINARY: Negative. MUSCULOSKELETAL: Negative. SKIN: Negative. NEUROPSYCH: Negative. ENDOCRINE: Negative. HEMATOLOGIC: Negative. Past Medical History Past Medical History: Atrial Fibrillation, Dialysis, Eye Disorder, GERD/Reflux, Renal Disease, Seizure Disorder, Thyroid Disorder Additional Past Medical History / Comment(s): Recent fall with quadriceps tendon rupture. Gout. Bruises easily. 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 Kidney transplant in 1998. Hemodialysis [facility]EFR[facility] at home. Hx anemia with blood transfusion. 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 Hx diverticulitis. Hx Shingles 02/2021. Hx approximately 7 grand mal seizures in 2021 when on dialysis, unknown etiology, none since. Has nonactive left arm dialysis graft and functioning left groin dialysis port. Frequent headaches. Low blood pressure at times. History of Any Multi-Drug Resistant Organisms: None Reported Past Surgical History: Orthopedic Surgery Additional Past Surgical History / Comment(s): Fistula placement, thyroidectomy, kidney transplant, toenails removed. Left knee ortho surgery. Past Anesthesia/Blood Transfusion Reactions: No Reported Reaction Additional Past Anesthesia/Blood Transfusion Reaction / Comment(s): Blood t ransfusion - had no issues. Past Psychological History: No Psychological Hx Reported Additional Psychological History / Comment(s): Pt resides with his mother who is his caregiver. Pt ambulates without device/he memorizes where furniture is placed. Mother performs hemodialysis 4 days a week. 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 No home care. Smoking Status: Never smoker Past Alcohol Use History: None Reported Past Drug Use History: None Reported - Past Family History Mother Family Medical History: Fibromyalgia, Osteoarthritis (OA) Additional Family Medical History / Comment(s): Lupus Family Family Medical History: No Reported History Additional Family Medical History / Comment(s): ETOH abuse Medications and Allergies Home Medications Medication Instructions Recorded Confirmed Type Levothyroxine Sodium [Synthroid] 50 mcg PO DAILY 12/18/17 01/28/24 History Montelukast [Singulair] 10 mg PO HS 12/18/17 01/28/24 History predniSONE 10 mg PO DAILY 04/25/21 01/28/24 History Atorvastatin [Lipitor] 20 mg PO DAILY 10/15/22 01/28/24 History Midodrine HCl [ProAmatine] 10 mg PO QID 10/15/22 01/28/24 History calcitrioL 0.25 mcg PO SUTUTHSA 10/15/22 01/28/24 History calcitrioL 0.5 mcg PO MOWEFR 10/15/22 01/28/24 History Omeprazole [PriLOSEC] 20 mg PO HS 04/25/23 01/28/24 History allopurinoL 100 mg PO DAILY 06/23/23 01/28/24 History Calcium Carbonate [Tums] 500 mg PO QID PRN 12/08/23 01/28/24 History Fludrocortisone [Florinef] 0.1 mg PO DIRECTED 01/28/24 01/28/24 History Allergies Allergy/AdvReac Type Severity Reaction Status Date / Time adhesive tape Allergy Itching Verified 01/28/24 12:57 codeine Allergy Rash/Hives Verified 01/28/24 12:57 cyclobenzaprine Allergy Rash/Hives Verified 01/28/24 12:57 [From Flexeril] diphenhydramine Allergy Anaphylaxis Verified 01/28/24 12:57 [From Benadryl] hydromorphone [From Dilaudid] Allergy Rash/Hives Verified 01/28/24 12:57 hydroxyzine Allergy Anaphylaxis Verified 01/28/24 12:57 Iodinated Contrast Media Allergy Anaphylaxis Verified 01/28/24 12:57 [Iodinated Contrast- Oral and IV Dye] pantoprazole [From Protonix] Allergy Anaphylaxis Verified 01/28/24 12:57 Penicillins Allergy Rash/Hives Verified 01/28/24 12:57 potassium chloride Allergy Rash/Hives Verified 01/28/24 12:57 pregabalin [From Lyrica] Allergy Anaphylaxis Verified 01/28/24 12:57 sevelamer Allergy Rash/Hives Verified 01/28/24 12:57 warfarin [From Coumadin] Allergy Anaphylaxis Verified 01/28/24 12:57 acetaminophen [From Vicodin] AdvReac Nausea & Verified 01/28/24 12:57 Vomiting aripiprazole [From Abilify] AdvReac Abdominal Verified 01/28/24 12:57 Pain aztreonam AdvReac Unknown Verified 01/28/24 12:57 calcitriol AdvReac Unknown Verified 01/28/24 12:57 cefadroxil AdvReac Unknown Verified 01/28/24 12:57 enalapril AdvReac Unknown Verified 01/28/24 12:57 hydrocodone [From Vicodin] AdvReac Nausea & Verified 01/28/24 12:57 Vomiting Influenza Virus Vaccines AdvReac Unknown Verified 01/28/24 12:57 levofloxacin [From Levaquin] AdvReac Abdominal Verified 01/28/24 12:57 Pain meloxicam [From Mobic] AdvReac Abdominal Verified 01/28/24 12:57 Pain morphine AdvReac Unknown Verified 01/28/24 12:57 propoxyphene AdvReac Unknown Verified 01/28/24 12:57 Sulfa (Sulfonamide AdvReac Vomiting Verified 01/28/24 12:57 Antibiotics) tramadol AdvReac no Verified 01/28/24 12:57 allergy, just does not work for him Physical Exam Vitals: Vital Signs Temp Pulse Resp BP Pulse Ox 01/29/24 09:30 93 10 L 107/90 96 01/29/24 09:00 100 12 109/91 98 01/29/24 08:30 105 H 16 105/59 99 01/29/24 08:00 98.6 F 112 H 18 95/68 99 01/29/24 07:30 121 H 14 111/50 01/29/24 07:00 114 H 16 119/64 97 01/29/24 06:30 73 16 115/61 96 01/29/24 06:00 93 16 111/65 98 01/29/24 05:45 84 19 113/66 98 01/29/24 05:30 91 20 112/69 94 L 01/29/24 05:15 85 20 100/65 95 01/29/24 05:00 81 18 95/51 95 01/29/24 04:45 81 17 118/64 94 L 01/29/24 04:30 85 22 98/86 96 01/29/24 04:15 83 15 128/65 99 01/29/24 04:00 97.8 F 86 22 107/78 94 L 01/29/24 03:45 73 16 95/80 90 L 01/29/24 03:30 90 19 111/67 92 L 01/29/24 03:15 84 23 103/89 91 L 01/29/24 03:00 79 25 H 92/67 93 L 01/29/24 02:45 77 22 101/63 90 L 01/29/24 02:30 79 18 87/57 91 L 01/29/24 02:15 84 20 100/56 91 L 01/29/24 02:00 87 16 90 L 01/29/24 01:45 85 26 H 95/35 91 L 01/29/24 01:30 87 18 92/41 95 01/29/24 01:15 99 16 91/65 92 L 01/29/24 01:00 112 H 15 01/29/24 00:45 101 H 23 88/77 01/29/24 00:31 81 16 103/60 90 L 01/29/24 00:30 96 21 103/60 90 L 01/29/24 00:15 90 19 98/61 93 L 01/29/24 00:00 97.5 F L 98 18 90/61 90 L 01/28/24 23:45 89 19 104/62 91 L 01/28/24 23:30 92 19 101/65 96 01/28/24 23:15 81 24 88/66 90 L 01/28/24 23:00 91 25 H 104/70 92 L 01/28/24 22:45 84 21 101/45 95 01/28/24 22:30 96 19 93/75 92 L 01/28/24 22:15 92 20 105/61 95 01/28/24 22:00 83 20 110/67 92 L 01/28/24 21:45 94 23 100/76 01/28/24 21:30 106 H 20 100/76 01/28/24 21:15 89 22 92/72 91 L 01/28/24 21:00 93 17 85/68 91 L 01/28/24 20:45 97.8 F 91 16 80/62 92 L 01/28/24 20:30 87 13 90/66 92 L 01/28/24 20:15 96 5 L 88/58 93 L 01/28/24 20:05 95 01/28/24 19:43 93 18 94/64 94 L 01/28/24 17:45 110 H 20 103/61 96 01/28/24 17:30 107 H 18 127/57 97 01/28/24 17:15 112 H 22 94/62 97 01/28/24 17:00 114 H 20 83/64 96 01/28/24 16:45 107 H 22 96/60 97 01/28/24 16:30 108 H 18 89/61 96 01/28/24 16:15 106 H 16 86/60 96 01/28/24 16:00 108 H 16 79/57 97 01/28/24 15:55 79/53 01/28/24 15:12 107 H 18 79/68 96 01/28/24 14:42 104 H 22 97/49 96 01/28/24 14:27 112 H 18 80/52 96 01/28/24 14:16 120 H 20 89/50 96 01/28/24 13:52 112 H 20 78/51 97 01/28/24 13:42 112 H 20 85/41 96 11/13/24 13:22 99.5 F 114 H 20 66/47 95 01/28/24 12:53 113 H 20 75/34 90 L 01/28/24 12:45 121 H 18 77/65 01/28/24 12:42 128 H 18 65/44 91 L 01/28/24 12:02 117 H 16 94/67 90 L 01/28/24 11:44 99.8 F H 115 H 22 82/58 95 Intake and Output 01/28/24 01/29/24 01/29/24 22:59 06:59 14:59 Intake Total 240 820 118 Balance 240 820 118 Intake: IV 240 720 Sodium Chloride 0.9% 1, 240 720 000 ml @ 80 mls/hr IV . [id number] [facility] Rx#:[id number] Oral 100 118 Other: # Bowel Movements 1 1 0 Weight 81.647 kg 84.4 kg General Impression: Reveals a 53-year-old white male in no distress HEENT: Normocephalic atraumatic, extra-ocular movements intact, pupils equal and reactive to light bilaterally, dry mucous membranes Cardiovascular: Heart regular rate and rhythm Chest: Able to complete full sentences, no retractions, no tachypnea Abdomen: abdomen soft, non-tender, non-distended, no organomegaly Musculoskeletal: Pulses present and equal in all extremities, no peripheral edema Motor: no focal deficits noted Neurological: CN II-XII grossly intact, no focal motor or sensory deficits noted Skin: Intact with no visualized rashes Psych: Normal affect and mood Results - Laboratory Findings CBC and BMP: 01/29/24 05:52 01/29/24 05:52 PT/INR, D-dimer PT 10.1 sec (10.0-12.5) 01/28/24 12:27 INR 0.9 (<1.2) 01/28/24 12:27 Abnormal lab findings: Abnormal Labs 01/28/24 01/28/24 01/29/24 12:27 12:27 05:52 WBC 3.5 L RBC 4.06 L 3.50 L Hgb 12.1 L 10.6 L Hct 33.8 L Plt Count 128 L 116 L Lymphocytes # 0.6 L 0.8 L Sodium 134 L Chloride 93 L Carbon Dioxide BUN 48 H Creatinine 7.83 H* Glucose Calcium 01/29/24 05:52 WBC RBC Hgb Hct Plt Count Lymphocytes # Sodium 135 L Chloride Carbon Dioxide 19 L BUN 62 H Creatinine 9.29 H* Glucose 67 L Calcium 8.1 L - Diagnostic Findings Chest x-ray: image reviewed (Chest x-ray showed minimal basilar atelectasis) Assessment and Plan Assessment: Impression: Hypovolemic hypotension, improved with fluids and with midodrine Chronic hypotension End-stage renal disease, on hemodialysis History of hypothyroidism History of failed renal transplant History of seizure disorder Chronic atrial fibrillation GERD without esophagitis History of quadriceps tendon rupture History of gout Recommendation: Considering the patient is doing well today I will clear the patient to be discharged home if cleared by nephrology Patient to resume his home meds including midodrine Patient to continue his on dialysis at home. Patient to be seen by nephrology in consultation and hopefully will clear for discharge Time with Patient: Greater than 30
--- NOTE | 2024-01-29 11:41 | P.NPCON ---
History of Present Illness - Reason for Consult end stage renal disease - History of Present Illness patient is a 53-year-old male with history of end-stage renal disease maintained on home hemodialysis 5 days a week on Wednesdays and Saturdays via femoral permacath. Patient is admitted to the hospital with complaints of increased weakness along with headache and backache. Patient denied any fever. He believes he took off too much fluid with hemodialysis and was volume depleted. Systolic blood pressure was in the 80s with occasional systolic off 75 mmHg. Blood pressure responded well to midodrine Angela to fluid boluses of 1 L. Patient feels well currently. He did not need to start any pressors. He wishes to to be discharged and is scheduled for hemodialysis today at home. No significant abnormalities on labs noted. Hemoglobin was 10.6 g/dL. Past Medical History Past Medical History: Atrial Fibrillation, Dialysis, Eye Disorder, GERD/Reflux, Renal Disease, Seizure Disorder, Thyroid Disorder Additional Past Medical History / Comment(s): Recent fall with quadriceps tendon rupture. Gout. Bruises easily. 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 Kidney transplant in 1998. Hemodialysis [facility]EFR[facility] at home. Hx anemia with blood transfusion. 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 Hx diverticulitis. Hx Shingles 02/2021. Hx approximately 7 grand mal seizures in 2021 when on dialysis, unknown etiology, none since. Has nonactive left arm dialysis graft and functioning left groin dialysis port. Frequent headaches. Low blood pressure at times. History of Any Multi-Drug Resistant Organisms: None Reported Past Surgical History: Orthopedic Surgery Additional Past Surgical History / Comment(s): Fistula placement, thyroidectomy, kidney transplant, toenails removed. Left knee ortho surgery. Past Anesthesia/Blood Transfusion Reactions: No Reported Reaction Additional Past Anesthesia/Blood Transfusion Reaction / Comment(s): Blood transfusion - had no issues. Past Psychological History: No Psychological Hx Reported Additional Psychological History / Comment(s): Pt resides with his mother who is his caregiver. Pt ambulates without device/he memorizes where furniture is placed. Mother performs hemodialysis 4 days a week. 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 No home care. Smoking Status: Never smoker Past Alcohol Use History: None Reported Past Drug Use History: None Reported - Past Family History Mother Family Medical History: Fibromyalgia, Osteoarthritis (OA) Additional Family Medical History / Comment(s): Lupus Family Family Medical History: No Reported History Additional Family Medical History / Comment(s): ETOH abuse Medications and Allergies Home Medications Medication Instructions Recorded Confirmed Type Levothyroxine Sodium [Synthroid] 50 mcg PO DAILY 12/18/17 01/28/24 History Montelukast [Singulair] 10 mg PO HS 12/18/17 01/28/24 History predniSONE 10 mg PO DAILY 04/25/21 01/28/24 History Atorvastatin [Lipitor] 20 mg PO DAILY 10/15/22 01/28/24 History Midodrine HCl [ProAmatine] 10 mg PO QID 10/15/22 01/28/24 History calcitrioL 0.25 mcg PO SUTUTHSA 10/15/22 01/28/24 History calcitrioL 0.5 mcg PO MOWEFR 10/15/22 01/28/24 History Omeprazole [PriLOSEC] 20 mg PO HS 04/25/23 01/28/24 History allopurinoL 100 mg PO DAILY 06/23/23 01/28/24 History Calcium Carbonate [Tums] 500 mg PO QID PRN 12/08/23 01/28/24 History Fludrocortisone [Florinef] 0.1 mg PO DIRECTED 01/28/24 01/28/24 History Allergies Allergy/AdvReac Type Severity Reaction Status Date / Time adhesive tape Allergy Itching Verified 01/28/24 12:57 codeine Allergy Rash/Hives Verified 01/28/24 12:57 cyclobenzaprine Allergy Rash/Hives Verified 01/28/24 12:57 [From Flexeril] diphenhydramine Allergy Anaphylaxis Verified 01/28/24 12:57 [From Benadryl] hydromorphone [From Dilaudid] Allergy Rash/Hives Verified 01/28/24 12:57 hydroxyzine Allergy Anaphylaxis Verified 01/28/24 12:57 Iodinated Contrast Media Allergy Anaphylaxis Verified 01/28/24 12:57 [Iodinated Contrast- Oral and IV Dye] pantoprazole [From Protonix] Allergy Anaphylaxis Verified 01/28/24 12:57 Penicillins Allergy Rash/Hives Verified 01/28/24 12:57 potassium chloride Allergy Rash/Hives Verified 01/28/24 12:57 pregabalin [From Lyrica] Allergy Anaphylaxis Verified 01/28/24 12:57 sevelamer Allergy Rash/Hives Verified 01/28/24 12:57 warfarin [From Coumadin] Allergy Anaphylaxis Verified 01/28/24 12:57 acetaminophen [From Vicodin] AdvReac Nausea & Verified 01/28/24 12:57 Vomiting aripiprazole [From Abilify] AdvReac Abdominal Verified 01/28/24 12:57 Pain aztreonam AdvReac Unknown Verified 01/28/24 12:57 calcitriol AdvReac Unknown Verified 01/28/24 12:57 cefadroxil AdvReac Unknown Verified 01/28/24 12:57 enalapril AdvReac Unknown Verified 01/28/24 12:57 hydrocodone [From Vicodin] AdvReac Nausea & Verified 01/28/24 12:57 Vomiting Influenza Virus Vaccines AdvReac Unknown Verified 01/28/24 12:57 levofloxacin [From Levaquin] AdvReac Abdominal Verified 01/28/24 12:57 Pain meloxicam [From Mobic] AdvReac Abdominal Verified 01/28/24 12:57 Pain morphine AdvReac Unknown Verified 01/28/24 12:57 propoxyphene AdvReac Unknown Verified 01/28/24 12:57 Sulfa (Sulfonamide AdvReac Vomiting Verified 01/28/24 12:57 Antibiotics) tramadol AdvReac no Verified 01/28/24 12:57 allergy, just does not work for him Physical Exam Vitals: Vital Signs Temp Pulse Resp BP Pulse Ox 01/29/24 09:30 93 10 L 107/90 96 01/29/24 09:00 100 12 109/91 98 01/29/24 08:30 105 H 16 105/59 99 01/29/24 08:00 98.6 F 112 H 18 95/68 99 01/29/24 07:30 121 H 14 111/50 01/29/24 07:00 114 H 16 119/64 97 01/29/24 06:30 73 16 115/61 96 01/29/24 06:00 93 16 111/65 98 01/29/24 05:45 84 19 113/66 98 01/29/24 05:30 91 20 112/69 94 L 01/29/24 05:15 85 20 100/65 95 01/29/24 05:00 81 18 95/51 95 01/29/24 04:45 81 17 118/64 94 L 01/29/24 04:30 85 22 98/86 96 01/29/24 04:15 83 15 128/65 99 01/29/24 04:00 97.8 F 86 22 107/78 94 L 01/29/24 03:45 73 16 95/80 90 L 01/29/24 03:30 90 19 111/67 92 L 01/29/24 03:15 84 23 103/89 91 L 01/29/24 03:00 79 25 H 92/67 93 L 01/29/24 02:45 77 22 101/63 90 L 01/29/24 02:30 79 18 87/57 91 L 01/29/24 02:15 84 20 100/56 91 L 01/29/24 02:00 87 16 90 L 01/29/24 01:45 85 26 H 95/35 91 L 01/29/24 01:30 87 18 92/41 95 01/29/24 01:15 99 16 91/65 92 L 01/29/24 01:00 112 H 15 01/29/24 00:45 101 H 23 88/77 01/29/24 00:31 81 16 103/60 90 L 01/29/24 00:30 96 21 103/60 90 L 01/29/24 00:15 90 19 98/61 93 L 01/29/24 00:00 97.5 F L 98 18 90/61 90 L 01/28/24 23:45 89 19 104/62 91 L 01/28/24 23:30 92 19 101/65 96 01/28/24 23:15 81 24 88/66 90 L 01/28/24 23:00 91 25 H 104/70 92 L 01/28/24 22:45 84 21 101/45 95 01/28/24 22:30 96 19 93/75 92 L 01/28/24 22:15 92 20 105/61 95 01/28/24 22:00 83 20 110/67 92 L 01/28/24 21:45 94 23 100/76 01/28/24 21:30 106 H 20 100/76 01/28/24 21:15 89 22 92/72 91 L 01/28/24 21:00 93 17 85/68 91 L 01/28/24 20:45 97.8 F 91 16 80/62 92 L 01/28/24 20:30 87 13 90/66 92 L 01/28/24 20:15 96 5 L 88/58 93 L 01/28/24 20:05 95 01/28/24 19:43 93 18 94/64 94 L 01/28/24 17:45 110 H 20 103/61 96 01/28/24 17:30 107 H 18 127/57 97 01/28/24 17:15 112 H 22 94/62 97 01/28/24 17:00 114 H 20 83/64 96 01/28/24 16:45 107 H 22 96/60 97 01/28/24 16:30 108 H 18 89/61 96 01/28/24 16:15 106 H 16 86/60 96 01/28/24 16:00 108 H 16 79/57 97 01/28/24 15:55 79/53 01/28/24 15:12 107 H 18 79/68 96 01/28/24 14:42 104 H 22 97/49 96 01/28/24 14:27 112 H 18 80/52 96 01/28/24 14:16 120 H 20 89/50 96 01/28/24 13:52 112 H 20 78/51 97 01/28/24 13:42 112 H 20 85/41 96 01/28/24 13:22 99.5 F 114 H 20 66/47 95 01/28/24 12:53 113 H 20 75/34 90 L 01/28/24 12:45 121 H 18 77/65 01/28/24 12:42 128 H 18 65/44 91 L 01/28/24 12:02 117 H 16 94/67 90 L 01/28/24 11:44 99.8 F H 115 H 22 82/58 95 Intake and Output 01/28/24 01/29/24 01/29/24 22:59 06:59 14:59 Intake Total 240 820 118 Balance 240 820 118 Intake: IV 240 720 Sodium Chloride 0.9% 1, 240 720 000 ml @ 80 mls/hr IV . [id number] [facility] Rx#:[id number] Oral 100 118 Other: # Bowel Movements 1 1 0 Weight 81.647 kg 84.4 kg patient is awake, comfortable, alert oriented 3. No acute distress. 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 End-stage renal disease maintained on home hemodialysis 5 days a week. Patient has a femoral permacath. 2. Hypotension secondary to volume depletion, improved with fluid bolus and one dose of midodrine. No evidence of infection. No bleeding noted. 3. CK D mineral bone disorder 4. History of failed renal transplant Plan: Okay to discharge patient and proceed with hemodialysis at home today. Di scussed minimal UF today. [facility]
[2024-01-29] MEDS: VANCOMYCIN 1,500 MG in SODIUM CHLORIDE 0.9% 500 ML 500 ML IVPB ONE (11:59)
[2024-01-29] MEDS: MIDODRINE 5 MG TAB PO SCH (13:05)
--- NOTE | 2024-01-29 14:19 | P.HPIM ---
History of Present Illness H&P Date: 01/29/24 History of present illness; patient is 53-year-old gentleman with past medical history significant for end-stage renal disease on dialysis, A-fib who presented the ER for dizziness. Patient stated that he has been feeling dizzy and lightheaded for the last few days. Patient denies any chest pain. Patient denies any shortness of breath there is no complaint of fever or chills. Patient said dizziness is present more on getting up to a standing position. There is no complaint of falls. Patient denied any passing out episode. Patient has been complaining generalized body aches. Because of these complaint, patient presented the ER Initial lab work done in the ER showed WBC 5.8, hemoglobin 1, platelet count 128, sodium 134, potassium 3.9, BUN 48, creatinine 7.83, calcium 9.4, magnesium 1.7 EKG done in the ER showed heart rate of 118, irregular in rate and rhythm. No ST segment elevation or depression seen, no T-wave inversions seen. Chest x-ray done in the ERBilateral lower lobe atelectasis. Patient admitted to internal medicine service REVIEW OF SYSTEMS: CONSTITUTIONAL: No fever, no malaise, no fatigue. HEENT: No recent visual problems or hearing problems. Denied any sore throat. CARDIOVASCULAR: As mentioned above PULMONARY: As mentioned above GASTROINTESTINAL: No diarrhea, no nausea, no vomiting, no abdominal pain. NEUROLOGICAL: No headaches, no weakness, no numbness. HEMATOLOGICAL: Denies any bleeding or petechiae. GENITOURINARY: Denies any burning micturition, frequency, or urgency. MUSCULOSKELETAL/RHEUMATOLOGICAL: Denies any joint pain, swelling, or any muscle pain. ENDOCRINE: Denies any polyuria or polydipsia. The rest of the 14-point review of systems is negative. PHYSICAL EXAMINATION: GENERAL: The patient is alert and oriented x3, not in any acute distress. Well developed, well nourished. HEENT: Pupils are round and equally reacting to light. EOMI. No scleral icterus. No conjunctival pallor. Normocephalic, atraumatic. No pharyngeal erythema. No thyromegaly. CARDIOVASCULAR: S1 and S2 present. No murmurs, rubs, or gallops. PULMONARY: Chest is clear to auscultation, no wheezing or crackles. ABDOMEN: Soft, nontender, nondistended, normoactive bowel sounds. No palpable organomegaly. MUSCULOSKELETAL: No joint swelling or deformity. EXTREMITIES: No cyanosis, clubbing, or pedal edema. NEUROLOGICAL: Gross neurological examination did not reveal any focal deficits. SKIN: No rashes. Assessment and plan Dizziness Hypotension Monitor vital signs Monitor CBC Monitor CMP Continue telemetry monitoring Ordered serial troponin Ordered 2D echo Hold blood pressure medications Resume Florinef and midodrine Will give stress dose of Solu-Cortef Nephrology for maintenance dialysis Consult ICU for critical care management Labs and medication were reviewed.. Continue same treatment. Continue with symptomatic treatment. Resume home medication. Monitor labs and vitals. DVT and GI prophylaxis. Further recommendations as per clinical course of the patient Dictation was produced using [employer] dictation software. please excuse any grammatical, word or spelling errors. Past Medical History Past Medical History: Atrial Fibrillation, Dialysis, Eye Disorder, GERD/Reflux, Renal Disease, Seizure Disorder, Thyroid Disorder Additional Past Medical History / Comment(s): Recent fall with quadriceps tendon rupture. Gout. Bruises easily. 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 Kidney transplant in 1998. Hemodialysis [facility]EFR[facility] at home. Hx anemia with blood transfusion. 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 Hx diverticulitis. Hx Shingles 02/2021. Hx approximately 7 grand mal seizures in 2021 when on dialysis, unknown etiology, none since. Has nonactive left arm dialysis graft and functioning left groin dialysis port. Frequent headaches. Low blood pressure at times. History of Any Multi-Drug Resistant Organisms: None Reported Past Surgical History: Orthopedic Surgery Additional Past Surgical History / Comment(s): Fistula placement, thyroidectomy, kidney transplant, toenails removed. Left knee ortho surgery. Past Anesthesia/Blood Transfusion Reactions: No Reported Reaction Additional Past Anesthesia/Blood Transfusion Reaction / Comment(s): Blood transfusion - had no issues. Past Psychological History: No Psychological Hx Reported Additional Psychological History / Comment(s): Pt resides with his mother who is his caregiver. Pt ambulates without device/he memorizes where furniture is placed. Mother performs hemodialysis 4 days a week. 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 No home care. Smoking Status: Never smoker Past Alcohol Use History: None Reported Past Drug Use History: None Reported - Past Family History Mother Family Medical History: Fibromyalgia, Osteoarthritis (OA) Additional Family Medical History / Comment(s): Lupus Family Family Medical History: No Reported History Additional Family Medical History / Comment(s): ETOH abuse Medications and Allergies Home Medications Medication Instructions Recorded Confirmed Type Levothyroxine Sodium [Synthroid] 50 mcg PO DAILY 12/18/17 01/28/24 History Montelukast [Singulair] 10 mg PO HS 12/18/17 01/28/24 History predniSONE 10 mg PO DAILY 04/25/21 01/28/24 History Atorvastatin [Lipitor] 20 mg PO DAILY 10/15/22 01/28/24 History Midodrine HCl [ProAmatine] 10 mg PO QID 10/15/22 01/28/24 History calcitrioL 0.25 mcg PO SUTUTHSA 10/15/22 01/28/24 History calcitrioL 0.5 mcg PO MOWEFR 10/15/22 01/28/24 History Omeprazole [PriLOSEC] 20 mg PO HS 04/25/23 01/28/24 History allopurinoL 100 mg PO DAILY 06/23/23 01/28/24 History Calcium Carbonate [Tums] 500 mg PO QID PRN 12/08/23 01/28/24 History Fludrocortisone [Florinef] 0.1 mg PO DIRECTED 01/28/24 01/28/24 History Allergies Allergy/AdvReac Type Severity Reaction Status Date / Time adhesive tape Allergy Itching Verified 01/28/24 12:57 codeine Allergy Rash/Hives Verified 01/28/24 12:57 cyclobenzaprine Allergy Rash/Hives Verified 01/28/24 12:57 [From Flexeril] diphenhydramine Allergy Anaphylaxis Verified 01/28/24 12:57 [From Benadryl] hydromorphone [From Dilaudid] Allergy Rash/Hives Verified 01/28/24 12:57 hydroxyzine Allergy Anaphylaxis Verified 01/28/24 12:57 Iodinated Contrast Media Allergy Anaphylaxis Verified 01/28/24 12:57 [Iodinated Contrast- Oral and IV Dye] pantoprazole [From Protonix] Allergy Anaphylaxis Verified 01/28/24 12:57 Penicillins Allergy Rash/Hives Verified 01/28/24 12:57 potassium chloride Allergy Rash/Hives Verified 01/28/24 12:57 pregabalin [From Lyrica] Allergy Anaphylaxis Verified 01/28/24 12:57 sevelamer Allergy Rash/Hives Verified 01/28/24 12:57 warfarin [From Coumadin] Allergy Anaphylaxis Verified 01/28/24 12:57 acetaminophen [From Vicodin] AdvReac Nausea & Verified 01/28/24 12:57 Vomiting aripiprazole [From Abilify] AdvReac Abdominal Verified 01/28/24 12:57 Pain aztreonam AdvReac Unknown Verified 01/28/24 12:57 calcitriol AdvReac Unknown Verified 01/28/24 12:57 cefadroxil AdvReac Unknown Verified 01/28/24 12:57 enalapril AdvReac Unknown Verified 01/28/24 12:57 hydrocodone [From Vicodin] AdvReac Nausea & Verified 01/28/24 12:57 Vomiting Influenza Virus Vaccines AdvReac Unknown Verified 01/28/24 12:57 levofloxacin [From Levaquin] AdvReac Abdominal Verified 01/28/24 12:57 Pain meloxicam [From Mobic] AdvReac Abdominal Verified 01/28/24 12:57 Pain morphine AdvReac Unknown Verified 01/28/24 12:57 propoxyphene AdvReac Unknown Verified 01/28/24 12:57 Sulfa (Sulfonamide AdvReac Vomiting Verified 01/28/24 12:57 Antibiotics) tramadol AdvReac no Verified 01/28/24 12:57 allergy, just does not work for him Physical Exam Vitals: Vital Signs Temp Pulse Resp BP Pulse Ox 01/29/24 09:30 93 10 L 107/90 96 01/29/24 09:00 100 12 109/91 98 01/29/24 08:30 105 H 16 105/59 99 01/29/24 08:00 98.6 F 112 H 18 95/68 99 01/29/24 07:30 121 H 14 111/50 01/29/24 07:00 114 H 16 119/64 97 01/29/24 06:30 73 16 115/61 96 01/29/24 06:00 93 16 111/65 98 01/29/24 05:45 84 19 113/66 98 01/29/24 05:30 91 20 112/69 94 L 01/29/24 05:15 85 20 100/65 95 01/29/24 05:00 81 18 95/51 95 01/29/24 04:45 81 17 118/64 94 L 01/29/24 04:30 85 22 98/86 96 01/29/24 04:15 83 15 128/65 99 01/29/24 04:00 97.8 F 86 22 107/78 94 L 01/29/24 03:45 73 16 95/80 90 L 01/29/24 03:30 90 19 111/67 92 L 01/29/24 03:15 84 23 103/89 91 L 01/29/24 03:00 79 25 H 92/67 93 L 01/29/24 02:45 77 22 101/63 90 L 01/29/24 02:30 79 18 87/57 91 L 01/29/24 02:15 84 20 100/56 91 L 01/29/24 02:00 87 16 90 L 01/29/24 01:45 85 26 H 95/35 91 L 01/29/24 01:30 87 18 92/41 95 01/29/24 01:15 99 16 91/65 92 L 01/29/24 01:00 112 H 15 01/29/24 00:45 101 H 23 88/77 01/29/24 00:31 81 16 103/60 90 L 01/29/24 00:30 96 21 103/60 90 L 01/29/24 00:15 90 19 98/61 93 L 01/29/24 00:00 97.5 F L 98 18 90/61 90 L 01/28/24 23:45 89 19 104/62 91 L 01/28/24 23:30 92 19 101/65 96 01/28/24 23:15 81 24 88/66 90 L 01/28/24 23:00 91 25 H 104/70 92 L 01/28/24 22:45 84 21 101/45 95 01/28/24 22:30 96 19 93/75 92 L 01/28/24 22:15 92 20 105/61 95 01/28/24 22:00 83 20 110/67 92 L 01/28/24 21:45 94 23 100/76 01/28/24 21:30 106 H 20 100/76 01/28/24 21:15 89 22 92/72 91 L 01/28/24 21:00 93 17 85/68 91 L 01/28/24 20:45 97.8 F 91 16 80/62 92 L 01/28/24 20:30 87 13 90/66 92 L 01/28/24 20:15 96 5 L 88/58 93 L 01/28/24 20:05 95 01/28/24 19:43 93 18 94/64 94 L 01/28/24 17:45 110 H 20 103/61 96 01/28/24 17:30 107 H 18 127/57 97 01/28/24 17:15 112 H 22 94/62 97 01/28/24 17:00 114 H 20 83/64 96 01/28/24 16:45 107 H 22 96/60 97 01/28/24 16:30 108 H 18 89/61 96 01/28/24 16:15 106 H 16 86/60 96 01/28/24 16:00 108 H 16 79/57 97 01/28/24 15:55 79/53 01/28/24 15:12 107 H 18 79/68 96 01/28/24 14:42 104 H 22 97/49 96 01/28/24 14:27 112 H 18 80/52 96 01/28/24 14:16 120 H 20 89/50 96 01/28/24 13:52 112 H 20 78/51 97 01/28/24 13:42 112 H 20 85/41 96 01/28/24 13:22 99.5 F 114 H 20 66/47 95 01/28/24 12:53 113 H 20 75/34 90 L 01/28/24 12:45 121 H 18 77/65 01/28/24 12:42 128 H 18 65/44 91 L 01/28/24 12:02 117 H 16 94/67 90 L 01/28/24 11:44 99.8 F H 115 H 22 82/58 95 Intake and Output 01/28/24 01/29/24 01/29/24 22:59 06:59 14:59 Intake Total 240 820 118 Balance 240 820 118 Intake: IV 240 720 Sodium Chloride 0.9% 1, 240 720 000 ml @ 80 mls/hr IV . [id number] [facility] Rx#:[id number] Oral 100 118 Other: # Bowel Movements 1 1 0 Weight 81.647 kg 84.4 kg Results CBC & Chem 7: 01/29/24 05:52 01/29/24 05:52 Labs: Abnormal Lab Results - Last 24 Hours (Table) 01/28/24 01/28/24 01/29/24 Range/Units 12:27 12:27 05:52 WBC 3.5 L (3.8-10.6) k/uL RBC 4.06 L 3.50 L (4.30-5.90) m/uL Hgb 12.1 L 10.6 L (13.0-17.5) gm/dL Hct 33.8 L (39.0-53.0) % Plt Count 128 L 116 L (150-450) k/uL Lymphocytes # 0.6 L 0.8 L (1.0-4.8) k/uL Sodium 134 L (137-145) mmol/L Chloride 93 L (98-107) mmol/L Carbon Dioxide (22-30) mmol/L BUN 48 H (9-20) mg/dL Creatinine 7.83 H* (0.66-1.25) mg/dL Glucose (74-99) mg/dL Calcium (8.4-10.2) mg/dL 01/29/24 Range/Units 05:52 WBC (3.8-10.6) k/uL RBC (4.30-5.90) m/uL Hgb (13.0-17.5) gm/dL Hct (39.0-53.0) % Plt Count (150-450) k/uL Lymphocytes # (1.0-4.8) k/uL Sodium 135 L (137-145) mmol/L Chloride (98-107) mmol/L Carbon Dioxide 19 L (22-30) mmol/L BUN 62 H (9-20) mg/dL Creatinine 9.29 H* (0.66-1.25) mg/dL Glucose 67 L (74-99) mg/dL Calcium 8.1 L (8.4-10.2) mg/dL Thrombosis Risk Factor Assmnt - Choose All That Apply Any of the Below Risk Factors Present?: No
[2024-01-29] MEDS ORDERED: HYDROCORTISONE SUCCINATE 100 MG/2 ML VIAL IV SCH (21:00)
[2024-01-29] MEDS ORDERED: MONTELUKAST 10 MG TAB PO SCH (21:00)
--- NOTE | 2024-01-31 10:55 | P.DS ---
Providers Date of admission: 01/28/24 16:25 Expected date of discharge: 01/29/24 Attending physician: Rob Storm Consults: 01/28/24 16:23 Consult Physician Routine Consulting Provider: Mamie Lucia Consult Reason/Comments: ESRD Do you want consulting provider notified?: Yes Consult Physician Stat Consulting Provider: Pedro Pablo Nichols Consult Reason/Comments: icu patient Do you want consulting provider notified?: Already Contacted 01/29/24 10:16 Consult Physician Routine Consulting Provider: Ray Calvillo Consult Reason/Comments: Hypotension Do you want consulting provider notified?: Yes Primary care physician: [place] Course: Discharge diagnoses; Dizziness resolved Hypovolemic hypotension, improved with fluids and with midodrine Chronic hypotension End-stage renal disease, on hemodialysis History of hypothyroidism History of failed renal transplant History of seizure disorder Chronic atrial fibrillation GERD without esophagitis Hospital course; patient is 53-year-old gentleman with past medical history significant for end- stage renal disease on dialysis, A-fib who presented the ER for dizziness. Patient stated that he has been feeling dizzy and lightheaded for the last few days. Patient denies any chest pain. Patient denies any shortness of breath there is no complaint of fever or chills. Patient said dizziness is present more on getting up to a standing position. There is no complaint of falls. Patient denied any passing out episode. Patient has been complaining generalized body aches. Because of these complaint, patient presented the ER Initial lab work done in the ER showed WBC 5.8, hemoglobin 1, platelet count 128, sodium 134, potassium 3.9, BUN 48, creatinine 7.83, calcium 9.4, magnesium 1.7 EKG done in the ER showed heart rate of 118, irregular in rate and rhythm. No ST segment elevation or depression seen, no T-wave inversions seen. Chest x-ray done in the ERBilateral lower lobe atelectasis. Patient admitted to internal medicine service Patient was evaluated by nephrology and ICU, patient blood pressure improved after being on his home dose of midodrine. Patient was cleared by pulmonology for DC. Patient to follow-up outpatient with PCP PHYSICAL EXAMINATION: GENERAL: The patient is alert and oriented x3, not in any acute distress. Well developed, well nourished. HEENT: Pupils are round and equally reacting to light. EOMI. No scleral icterus. No conjunctival pallor. Normocephalic, atraumatic. No pharyngeal erythema. No thyromegaly. CARDIOVASCULAR: S1 and S2 present. No murmurs, rubs, or gallops. PULMONARY: Chest is clear to auscultation, no wheezing or crackles. ABDOMEN: Soft, nontender, nondistended, normoactive bowel sounds. No palpable organomegaly. MUSCULOSKELETAL: No joint swelling or deformity. EXTREMITIES: No cyanosis, clubbing, or pedal edema. NEUROLOGICAL: Gross neurological examination did not reveal any focal deficits. SKIN: No rashes. Dictation was produced using [employer] dictation software. please excuse any grammatical, word or spelling errors. Patient Condition at Discharge: Good Plan - Discharge Summary New Discharge Prescriptions: New Acetaminophen Tab [Tylenol] 650 mg PO Q6HR PRN tab PRN Reason: Fever And/ Or Pain Continue Montelukast [Singulair] 10 mg PO HS Levothyroxine Sodium [Synthroid] 50 mcg PO DAILY Omeprazole [PriLOSEC] 20 mg PO HS allopurinoL 100 mg PO DAILY predniSONE 10 mg PO DAILY calcitrioL 0.25 mcg PO SUTUTHSA calcitrioL 0.5 mcg PO MOWE Midodrine HCl [ProAmatine] 10 mg PO QID Atorvastatin [Lipitor] 20 mg PO DAILY Calcium Carbonate [Tums] 500 mg PO QID PRN PRN Reason: gerd Fludrocortisone [Florinef] 0.1 mg PO DIRECTED Discharge Medication List Levothyroxine Sodium [Synthroid] 50 mcg PO DAILY 12/18/17 [History] Montelukast [Singulair] 10 mg PO HS 12/18/17 [History] predniSONE 10 mg PO DAILY 04/25/21 [History] Atorvastatin [Lipitor] 20 mg PO DAILY 10/15/22 [History] Midodrine HCl [ProAmatine] 10 mg PO QID 10/15/22 [History] calcitrioL 0.25 mcg PO SUTUTHSA 10/15/22 [History] calcitrioL 0.5 mcg PO MOWEFR 10/15/22 [History] Omeprazole [PriLOSEC] 20 mg PO HS 04/25/23 [History] allopurinoL 100 mg PO DAILY 06/23/23 [History] Calcium Carbonate [Tums] 500 mg PO QID PRN 12/08/23 [History] Fludrocortisone [Florinef] 0.1 mg PO DIRECTED 01/28/24 [History] Acetaminophen Tab [Tylenol] 650 mg PO Q6HR PRN tab 01/29/24 [Rx] Follow up Appointment(s)/Referral(s): Mychal Jerome DO [Primary Care Provider] - 1-2 days Patient Instructions/Handouts: Hypotension (DC) Discharge Disposition: HOME SELF-CARE
== END 2024-01-29 15:20 | disposition home or self-care (01) | DRG 314 ==
LOC: EC 11:34 → 2SICU 16:25
PROVIDERS: ADMIT Hospitalist; ATTEND Hospitalist
DX: I95.89 Other hypotension (principal); N18.6 End stage renal disease; I48.20 Chronic atrial fibrillation, unspecified; Z94.0 Kidney transplant status; T86.12 Kidney transplant failure; E86.1 Hypovolemia; K21.9 Gastro-esophageal reflux disease without esophagitis; G40.909 Epilepsy, unspecified, not intractable, without status epilepticus; E03.9 Hypothyroidism, unspecified; Y83.0 Surgical operation with transplant of whole organ as the cause of abnormal reaction of the patient, or of later complication, without mention of misadventure at the time of the procedure; M10.9 Gout, unspecified; H54.7 Unspecified visual loss; M89.8X9 Other specified disorders of bone, unspecified site; Z79.890 Hormone replacement therapy; Z79.899 Other long term (current) drug therapy; Z99.2 Dependence on renal dialysis
CPT/HCPCS: 36415; 71046; 80048; 80053; 83605; 83735; 84484; 85025; 85610; 85730; 87040; 93005; 96361; 96365; 96366; 96367; 96375; 99291

== ENCOUNTER 2024-02-13 16:43 | Emergency (ER) | payer MEDICARE ==
--- NOTE | 2024-02-13 17:18 | ED ---
Recheck HPI - General Stated Complaint: Cath Issue Time Seen by Provider: 02/13/24 16:54 Source: patient, family, RN notes reviewed Mode of arrival: wheelchair Limitations: no limitations - History of Present Illness Initial Comments: This is a 53-year-old male presenting with for blocked dialysis port x 2 days. Patient's states patient has dialysis performed at home 5 times daily. States he had 1 and half hours of dialysis yesterday and only 30 minutes today before the port became blocked. states she attempted flushing with heparin with no resolution. Patient states he sees Dr. Keys regarding vascular surgery. - Related Data Home Medications Medication Instructions Recorded Confirmed Levothyroxine Sodium [Synthroid] 50 mcg PO DAILY 12/18/17 01/28/24 Montelukast [Singulair] 10 mg PO HS 12/18/17 01/28/24 predniSONE 10 mg PO DAILY 04/25/21 01/28/24 Atorvastatin [Lipitor] 20 mg PO DAILY 10/15/22 01/28/24 Midodrine HCl [ProAmatine] 10 mg PO QID 10/15/22 01/28/24 calcitrioL 0.25 mcg PO SUTUTHSA 10/15/22 01/28/24 calcitrioL 0.5 mcg PO MOWEFR 10/15/22 01/28/24 Omeprazole [PriLOSEC] 20 mg PO HS 04/25/23 01/28/24 allopurinoL 100 mg PO DAILY 06/23/23 01/28/24 Calcium Carbonate [Tums] 500 mg PO QID PRN 12/08/23 01/28/24 Fludrocortisone [Florinef] 0.1 mg PO DIRECTED 01/28/24 01/28/24 Previous Rx's Medication Instructions Recorded Acetaminophen Tab [Tylenol] 650 mg PO Q6HR PRN tab 01/29/24 Allergies Allergy/AdvReac Type Severity Reaction Status Date / Time adhesive tape Allergy Itching Verified 02/13/24 17:08 codeine Allergy Rash/Hives Verified 02/13/24 17:08 cyclobenzaprine Allergy Rash/Hives Verified 02/13/24 17:08 [From Flexeril] diphenhydramine Allergy Anaphylaxis Verified 02/13/24 17:08 [From Benadryl] hydromorphone [From Dilaudid] Allergy Rash/Hives Verified 02/13/24 17:08 hydroxyzine Allergy Anaphylaxis Verified 02/13/24 17:08 Iodinated Contrast Media Allergy Anaphylaxis Verified 02/13/24 17:08 [Iodinated Contrast- Oral and IV Dye] pantoprazole [From Protonix] Allergy Anaphylaxis Verified 02/13/24 17:08 Penicillins Allergy Rash/Hives Verified 02/13/24 17:08 potassium chloride Allergy Rash/Hives Verified 02/13/24 17:08 pregabalin [From Lyrica] Allergy Anaphylaxis Verified 02/13/24 17:08 sevelamer Allergy Rash/Hives Verified 02/13/24 17:08 warfarin [From Coumadin] Allergy Anaphylaxis Verified 02/13/24 17:08 acetaminophen [From Vicodin] AdvReac Nausea & Verified 02/13/24 17:08 Vomiting aripiprazole [From Abilify] AdvReac Abdominal Verified 02/13/24 17:08 Pain aztreonam AdvReac Unknown Verified 02/13/24 17:08 calcitriol AdvReac Unknown Verified 02/13/24 17:08 cefadroxil AdvReac Unknown Verified 02/13/24 17:08 enalapril AdvReac Unknown Verified 02/13/24 17:08 hydrocodone [From Vicodin] AdvReac Nausea & Verified 02/13/24 17:08 Vomiting Influenza Virus Vaccines AdvReac Unknown Verified 02/13/24 17:08 levofloxacin [From Levaquin] AdvReac Abdominal Verified 02/13/24 17:08 Pain meloxicam [From Mobic] AdvReac Abdominal Verified 02/13/24 17:08 Pain morphine AdvReac Unknown Verified 02/13/24 17:08 propoxyphene AdvReac Unknown Verified 02/13/24 17:08 Sulfa (Sulfonamide AdvReac Vomiting Verified 02/13/24 17:08 Antibiotics) tramadol AdvReac no Verified 02/13/24 17:08 allergy, just does not work for him Review of Systems ROS Statement: Those systems with pertinent positive or pertinent negative responses have been documented in the HPI. ROS Other: All systems not noted in ROS Statement are negative. Past Medical History Past Medical History: Atrial Fibrillation, Dialysis, Eye Disorder, GERD/Reflux, Renal Disease, Seizure Disorder, Thyroid Disorder Additional Past Medical History / Comment(s): Recent fall with quadriceps tendon rupture. Gout. Bruises easily. 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 Kidney transplant in 1998. Hemodialysis MOWEFRSA at home. Hx anemia with blood transfusion. 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 Hx diverticulitis. Hx Shingles 02/2021. Hx approximately 7 grand mal seizures in 2021 when on dialysis, unknown etiology, none since. Has nonactive left arm dialysis graft and functioning left groin dialysis port. Frequent headaches. Low blood pressure at times. History of Any Multi-Drug Resistant Organisms: None Reported Past Surgical History: Orthopedic Surgery Additional Past Surgical History / Comment(s): Fistula placement, thyroidectomy, kidney transplant, toenails removed. Left knee ortho surgery. Past Anesthesia/Blood Transfusion Reactions: No Reported Reaction Additional Past Anesthesia/Blood Transfusion Reaction / Comment(s): Blood transfusion - had no issues. Past Psychological History: No Psychological Hx Reported Additional Psychological History / Comment(s): Pt resides with his mother who is his caregiver. Pt ambulates without device/he memorizes where furniture is placed. Mother performs hemodialysis 4 days a week. 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 No home care. Smoking Status: Never smoker Past Alcohol Use History: None Reported Past Drug Use History: None Reported - Past Family History Mother Family Medical History: Fibromyalgia, Osteoarthritis (OA) Additional Family Medical History / Comment(s): Lupus Family Family Medical History: No Reported History Additional Family Medical History / Comment(s): ETOH abuse General Exam - General Exam Comments Initial Comments: Visual Physical Exam Vital signs reviewed General: Well-appearing, nontoxic, no acute distress. Patient seated in wheelchair Head: Normocephalic, atraumatic Eyes: PERRLA, EOMI ENT: Airway patent Chest: Nonlabored breathing Skin: No visual rash, normal skin tone Neuro: Alert and oriented 3 Musculoskeletal: No gross abnormalities General appearance: alert, in no apparent distress Head exam: Present: atraumatic, normocephalic, normal inspection Eye exam: Present: normal appearance, PERRL, EOMI. Absent: scleral icterus, conjunctival injection, periorbital swelling ENT exam: Present: normal exam, mucous membranes moist Neck exam: Present: normal inspection. Absent: tenderness, meningismus, lymphadenopathy Respiratory exam: Present: normal lung sounds bilaterally. Absent: respiratory distress, wheezes, rales, rhonchi, stridor Cardiovascular Exam: Present: regular rate, normal rhythm, normal heart sounds. Absent: systolic murmur, diastolic murmur, rubs, gallop, clicks GI/Abdominal exam: Present: soft, normal bowel sounds. Absent: distended, tenderness, guarding, rebound, rigid Extremities exam: Present: normal inspection, full ROM, normal capillary refill. Absent: tenderness, pedal edema, joint swelling, calf tenderness Back exam: Present: normal inspection Neurological exam: Present: alert, oriented X3, CN II-XII intact Psychiatric exam: Present: normal affect, normal mood Skin exam: Present: warm, dry, intact, normal color. Absent: rash Course Vital Signs 02/13/24 02/13/24 02/13/24 17:08 19:19 21:47 Temperature 98.5 F Pulse Rate 98 97 99 Respiratory 20 18 18 Rate Blood Pressure 88/32 100/70 108/70 O2 Sat by Pulse 93 L 98 97 Oximetry Medical Decision Making - Medical Decision Making Was pt. sent in by a medical professional or institution (, PA, SCHOOL DIRECTOR, urgent care, hospital, or retirement...) When possible be specific @ -No Did you speak to anyone other than the patient for history (EMS, parent, family, police, friend...)? What history was obtained from this source @ -No Did you review nursing and triage notes (agree or disagree)? Why? @ -I reviewed and agree with nursing and triage notes Were old charts reviewed (outside hosp., previous admission, EMS record, old EKG, old radiological studies, urgent care reports/EKG's, retirement records)? Report findings @ -No old charts were reviewed Differential Diagnosis (chest pain, altered mental status, abdominal pain women, abdominal pain men, vaginal bleeding, weakness, fever, dyspnea, syncope, headache, dizziness, GI bleed, back pain, seizure, CVA, palpatations, mental health, musculoskeletal)? @ -Dialysis port obstruction, cellulitis, hyperkalemia, this is not an exhaustive list EKG interpreted by me (3pts min.). @ -Not done X-rays interpreted by me (1pt min.). @ -None done CT interpreted by me (1pt min.). @ -None done U/S interpreted by me (1pt. min.). @ -None done What testing was considered but not performed or refused? (CT, X-rays, U/S, labs)? Why? @ -None What meds were considered but not given or refused? Why? @ -None Did you discuss the management of the patient with other professionals (professionals i.e. Dr., PA, SCHOOL DIRECTOR, lab, RT, psych nurse, social director, planer stone, teacher, philanthropy officer, lead case manager)? Give summary @ -Spoke to Dr. Skelton who advised to attempt tPA or heparin. Was smoking cessation discussed for >3mins.? @ -No Was critical care preformed (if so, how long)? @ -No Were there social determinants of health that impacted care today? How? (Homelessness, low income, unemployed, alcoholism, drug addiction, transportation, low edu. Level, literacy, decrease access to med. care, alf, rehab)? @ -No Was there de-escalation of care discussed even if they declined (Discuss DNR or withdrawal of care, Hospice)? DNR status @ -No What co-morbidities impacted this encounter? (DM, HTN, Smoking, COPD, CAD, Cancer, CVA, ARF, Chemo, Hep., AIDS, mental health diagnosis, sleep apnea, morbid obesity)? @ -None Was patient admitted / discharged? Hospital course, mention meds given and route, prescriptions, significant lab abnormalities, going to OR and other pertinent info. @ -Lab work shows hemoglobin of 9.7 with PTT over 200. Creatinine of 8.93 with BUN of 52. Cathflo ordered with resolution of obstruction noted. Advised follow-up with vascular for ongoing dialysis port issues. Undiagnosed new problem with uncertain prognosis? @ -No Drug Therapy requiring intensive monitoring for toxicity (Heparin, Nitro, Insulin, Cardizem)? @ -No Were any procedures done? @ -No Diagnosis/symptom? @ -Obstructed dialysis port Acute, or Chronic, or Acute on Chronic? @ -Acute Uncomplicated (without systemic symptoms) or Complicated (systemic symptoms)? @ -Uncomplicated Side effects of treatment? @ -No Exacerbation, Progression, or Severe Exacerbation? @ -No Poses a threat to life or bodily function? How? (Chest pain, [place], [place], pneumonia, PE, COPD, DKA, ARF, appy, cholecystitis, CVA, Diverticulitis, Homicidal, Suicidal, threat to staff... and all critical care pts) @ -No - Lab Data Result diagrams: 02/13/24 17:38 02/13/24 17:38 Lab Results 02/13/24 02/13/24 02/13/24 Range/Units 17:38 17:38 19:00 WBC 8.0 (3.8-10.6) k/uL RBC 3.32 L (4.30-5.90) m/uL Hgb 9.7 L (13.0-17.5) gm/dL Hct 31.7 L (39.0-53.0) % MCV 95.5 (80.0-100.0) fL MCH 29.2 (25.0-35.0) pg MCHC 30.6 L (31.0-37.0) g/dL RDW 15.8 H (11.5-15.5) % Plt Count 319 D (150-450) k/uL MPV 8.0 Neutrophils % 90 % Lymphocytes % 6 % Monocytes % 3 % Eosinophils % 0 % Basophils % 0 % Neutrophils # 7.2 (1.3-7.7) k/uL Lymphocytes # 0.5 L (1.0-4.8) k/uL Monocytes # 0.2 (0-1.0) k/uL Eosinophils # 0.0 (0-0.7) k/uL Basophils # 0.0 (0-0.2) k/uL Hypochromasia Marked Poikilocytosis Slight PT 11.6 (10.0-12.5) sec INR 1.1 (<1.2) APTT >200.0 H* (22.0-30.0) sec Sodium 135 L (137-145) mmol/L Potassium 3.3 L (3.5-5.1) mmol/L Chloride 98 (98-107) mmol/L Carbon Dioxide 27 (22-30) mmol/L Anion Gap 10 mmol/L BUN 52 H (9-20) mg/dL Creatinine 8.93 H* (0.66-1.25) mg/dL Est GFR (CKD-EPI)AfAm 7 (>60 ml/min/1.73 sqM) Est GFR (CKD-EPI)NonAf 6 (>60 ml/min/1.73 sqM) Glucose 144 H (74-99) mg/dL Calcium 8.9 (8.4-10.2) mg/dL Phosphorus 3.0 (2.5-4.5) mg/dL Magnesium 2.0 (1.6-2.3) mg/dL Total Bilirubin 0.6 (0.2-1.3) mg/dL AST 45 (17-59) U/L ALT 19 (4-49) U/L Alkaline Phosphatase 88 (38-126) U/L Total Protein 5.7 L (6.3-8.2) g/dL Albumin 3.1 L (3.5-5.0) g/dL Disposition Clinical Impression: Complication, dialysis catheter clot or failure Disposition: HOME SELF-CARE Condition: Good Is patient prescribed a controlled substance at d/c from ED?: No Referrals: Mychal Jerome DO [Primary Care Provider] - 1-2 days Time of Disposition: 21:49
[2024-02-13 17:19] VITALS: TEMP 98.5
[2024-02-13 18:06] LABS: Basophils % (A) 0 %; Eosinophils % (A) 0 %; HCT 31.7 % (39.0-53.0); HGB 9.7 gm/dL (13.0-17.5); Hypochromasia Marked; Lymphocytes # (A) 0.5 k/uL (1.0-4.8); Lymphocytes % (A) 6 %; MCH 29.2 pg (25.0-35.0); MCHC 30.6 g/dL (31.0-37.0); MCV 95.5 fL (80.0-100.0); Monocytes # (A) 0.2 k/uL (0-1.0); Monocytes % (A) 3 %; Neutrophils # (A) 7.2 k/uL (1.3-7.7); Neutrophils % (A) 90 %; Poikilocytosis Slight; RBC 3.32 m/uL (4.30-5.90); RDW 15.8 % (11.5-15.5)
[2024-02-13 18:09] LABS: Platelet Count 319 k/uL (150-450)
[2024-02-13 18:25] LABS: ALT 19 U/L (4-49); AST 45 U/L (17-59); African American GFR (CKD) 7 (>60 ml/min/1.73 sqM); Albumin 3.1 g/dL (3.5-5.0); Alkaline Phosphatase 88 U/L (38-126); Anion Gap 10 mmol/L; Blood Urea Nitrogen 52 mg/dL (9-20); Calcium 8.9 mg/dL (8.4-10.2); Carbon Dioxide 27 mmol/L (22-30); Chloride 98 mmol/L (98-107); Glucose 144 mg/dL (74-99); Non-African American GFR(CKD) 6 (>60 ml/min/1.73 sqM); Potassium 3.3 mmol/L (3.5-5.1); Sodium 135 mmol/L (137-145); Total Bilirubin 0.6 mg/dL (0.2-1.3); Total Protein 5.7 g/dL (6.3-8.2)
[2024-02-13 19:37] LABS: INR 1.1 (<1.2); Prothrombin Time 11.6 sec (10.0-12.5)
[2024-02-13 19:43] LABS: Partial Thromboplastin Time >200.0 sec (22.0-30.0)
[2024-02-13 20:14] VITALS: RESP 18
[2024-02-13] MEDS: ALTEPLASE 2 MG VIAL (CATHFLO) IV STA (21:42)
[2024-02-13 21:47] VITALS: BP 108/70; PULSE 99
== END 2024-02-13 22:12 | disposition home or self-care (01) ==
LOC: EC 16:43
DX: T82.49XA Other complication of vascular dialysis catheter, initial encounter (principal); Z88.0 Allergy status to penicillin; Z88.1 Allergy status to other antibiotic agents; Z88.2 Allergy status to sulfonamides; Z88.5 Allergy status to narcotic agent; Z88.7 Allergy status to serum and vaccine; Z88.8 Allergy status to other drugs, medicaments and biological substances; Z91.041 Radiographic dye allergy status; Z99.2 Dependence on renal dialysis
CPT/HCPCS: 36415; 80053; 83735; 84100; 85025; 85610; 85730; 99283; 37195; J2997

== ENCOUNTER 2024-03-12 14:37 | Observation (INO) | payer MEDICARE ==
--- NOTE | 2024-03-12 15:14 | ED ---
Recheck HPI - General Source: patient, family, RN notes reviewed Mode of arrival: wheelchair Limitations: no limitations <Judd Chang - Last Filed: 03/12/24 15:13> <Bonny Leslie - Last Filed: 03/13/24 22:50> - General Chief Complaint: Recheck/Abnormal Lab/Rx Stated Complaint: Dialysis catheter came out Time Seen by Provider: 03/12/24 15:13 - History of Present Illness Initial Comments: Quick note: 53-year-old male presented to the ER for evaluation of dialysis catheter malfunction. Patient reports for the past 2 days he has noticed it coming out of his skin. He was able to have dialysis completed yesterday but states it was difficult due to catheter becoming dislodged. Catheter was placed by Dr. Jacobsen. (Judd Chang) 53-year-old male who presents emergency department with dialysis catheter malfunction. States that over the past 3 to 4 days he has noted that his dialy sis catheter has become externalized. They were able to dialyze him yesterday however it was difficult as the catheter abuts the wall of the vessel. He has not had any bleeding from the site. No fevers or drainage. This has happened to the patient previously and he has had several dialysis catheter replacements. He refuses any further permanent access. He does do home hemodialysis. Last catheter was placed by Dr. Jacobsen (Bonny Leslie) - Related Data Home Medications Medication Instructions Recorded Confirmed Levothyroxine Sodium [Synthroid] 50 mcg PO DAILY 12/18/17 03/12/24 Montelukast [Singulair] 10 mg PO HS 12/18/17 03/12/24 predniSONE 10 mg PO DAILY 04/25/21 03/12/24 Atorvastatin [Lipitor] 20 mg PO DAILY 10/15/22 03/12/24 Midodrine HCl [ProAmatine] 10 mg PO QID 10/15/22 03/12/24 calcitrioL 0.25 mcg PO SUTUTHSA 10/15/22 03/12/24 calcitrioL 0.5 mcg PO MOWEFR 10/15/22 03/12/24 Omeprazole [PriLOSEC] 20 mg PO HS 04/25/23 03/12/24 allopurinoL 100 mg PO DAILY 06/23/23 03/12/24 Calcium Carbonate [Tums] 500 mg PO QID PRN 12/08/23 03/12/24 Previous Rx's Medication Instructions Recorded Acetaminophen Tab [Tylenol] 650 mg PO Q6HR PRN tab 01/29/24 Allergies Allergy/AdvReac Type Severity Reaction Status Date / Time adhesive tape Allergy Itching Verified 03/12/24 18:51 codeine Allergy Rash/Hives Verified 03/12/24 18:51 cyclobenzaprine Allergy Rash/Hives Verified 03/12/24 18:51 [From Flexeril] diphenhydramine Allergy Anaphylaxis Verified 03/12/24 18:51 [From Benadryl] hydromorphone [From Dilaudid] Allergy Rash/Hives Verified 03/12/24 18:51 hydroxyzine Allergy Anaphylaxis Verified 03/12/24 18:51 Iodinated Contrast Media Allergy Anaphylaxis Verified 03/12/24 18:51 [Iodinated Contrast- Oral and IV Dye] pantoprazole [From Protonix] Allergy Anaphylaxis Verified 03/12/24 18:51 Penicillins Allergy Rash/Hives Verified 03/12/24 18:51 potassium chloride Allergy Rash/Hives Verified 03/12/24 18:51 pregabalin [From Lyrica] Allergy Anaphylaxis Verified 03/12/24 18:51 sevelamer Allergy Rash/Hives Verified 03/12/24 18:51 warfarin [From Coumadin] Allergy Anaphylaxis Verified 03/12/24 18:51 acetaminophen [From Vicodin] AdvReac Nausea & Verified 03/12/24 18:51 Vomiting aripiprazole [From Abilify] AdvReac Abdominal Verified 03/12/24 18:51 Pain aztreonam AdvReac Unknown Verified 03/12/24 18:51 calcitriol AdvReac Unknown Verified 03/12/24 18:51 cefadroxil AdvReac Unknown Verified 03/12/24 18:51 enalapril AdvReac Unknown Verified 03/12/24 18:51 hydrocodone [From Vicodin] AdvReac Nausea & Verified 03/12/24 18:51 Vomiting Influenza Virus Vaccines AdvReac Unknown Verified 03/12/24 18:51 levofloxacin [From Levaquin] AdvReac Abdominal Verified 03/12/24 18:51 Pain meloxicam [From Mobic] AdvReac Abdominal Verified 03/12/24 18:51 Pain morphine AdvReac Unknown Verified 03/12/24 18:51 propoxyphene AdvReac Unknown Verified 03/12/24 18:51 Sulfa (Sulfonamide AdvReac Vomiting Verified 03/12/24 18:51 Antibiotics) tramadol AdvReac no Verified 03/12/24 18:51 allergy, just does not work for him Review of Systems ROS Other: All systems not noted in ROS Statement are negative. <uJdd Chang - Last Filed: 03/12/24 15:13> ROS Other: All systems not noted in ROS Statement are negative. <Bonny Leslie - Last Filed: 03/13/24 22:50> ROS Statement: Those systems with pertinent positive or pertinent negative responses have been documented in the HPI. Past Medical History Past Medical History: Atrial Fibrillation, Dialysis, Eye Disorder, GERD/Reflux, Renal Disease, Seizure Disorder, Thyroid Disorder Additional Past Medical History / Comment(s): Recent fall with quadriceps tendon rupture. Gout. Bruises easily. 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 Kidney transplant in 1998. Hemodialysis [facility] at home. Hx anemia with blood transfusion. 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 Hx diverticulitis. Hx Shingles 02/2021. Hx approximately 7 grand mal seizures in 2021 when on dialysis, unknown etiology, none since. Has nonactive left arm dialysis graft and functioning left groin dialysis port. Frequent headaches. Low blood pressure at times. History of Any Multi-Drug Resistant Organisms: None Reported Past Surgical History: Orthopedic Surgery Additional Past Surgical History / Comment(s): Fistula placement, thyroidectomy, kidney transplant, toenails removed. Left knee ortho surgery. Past Anesthesia/Blood Transfusion Reactions: No Reported Reaction Additional Past Anesthesia/Blood Transfusion Reaction / Comment(s): Blood transfusion - had no issues. Past Psychological History: No Psychological Hx Reported Smoking Status: Never smoker Past Alcohol Use History: None Reported Past Drug Use History: None Reported - Past Family History Mother Family Medical History: Fibromyalgia, Osteoarthritis (OA) Additional Family Medical History / Comment(s): Lupus Family Family Medical History: No Reported History Additional Family Medical History / Comment(s): ETOH abuse <Judd Chang - Last Filed: 03/12/24 15:13> General Exam Limitations: no limitations <Judd Chang - Last Filed: 03/12/24 15:13> General appearance: alert, in no apparent distress Head exam: Present: atraumatic, normocephalic, normal inspection Eye exam: Present: normal appearance, PERRL, EOMI. Absent: scleral icterus, conjunctival injection, periorbital swelling ENT exam: Present: normal exam, mucous membranes moist Neck exam: Present: normal inspection. Absent: tenderness, meningismus, lymphadenopathy Respiratory exam: Present: normal lung sounds bilaterally. Absent: respiratory distress, wheezes, rales, rhonchi, stridor Cardiovascular Exam: Present: regular rate, normal rhythm, normal heart sounds. Absent: systolic murmur, diastolic murmur, rubs, gallop, clicks GI/Abdominal exam: Present: soft, normal bowel sounds, other (Patient does have a left groin dialysis catheter. It is externalized approximately 5 cm). Absent: distended, tenderness, guarding, rebound, rigid Extremities exam: Present: normal inspection, full ROM, normal capillary refill. Absent: tenderness, pedal edema, joint swelling, calf tenderness Back exam: Present: normal inspection Neurological exam: Present: alert, oriented X3, CN II-XII intact Psychiatric exam: Present: normal affect, normal mood Skin exam: Present: warm, dry, intact, normal color. Absent: rash <Bonny Leslie - Last Filed: 03/13/24 22:50> - General Exam Comments Initial Comments: Visual Physical Exam Vital signs reviewed General: Well-appearing, nontoxic, no acute distress. Head: Normocephalic, atraumatic Eyes: PERRLA, EOMI ENT: Airway patent Chest: Nonlabored breathing Skin: No visual rash, normal skin tone Neuro: Alert and oriented 3 Musculoskeletal: No gross abnormalities (Judd Chang) Course Vital Signs 03/12/24 03/12/24 03/12/24 14:49 18:53 20:00 Temperature 98.1 F 97.6 F Pulse Rate 120 H 110 H 117 H Respiratory 20 18 16 Rate Blood Pressure 100/68 118/90 124/87 O2 Sat by Pulse 95 98 99 Oximetry 03/12/24 21:58 Temperature Pulse Rate 104 H Respiratory 18 Rate Blood Pressure 113/47 O2 Sat by Pulse 99 Oximetry Medical Decision Making <Judd Chang - Last Filed: 03/12/24 15:13> - Lab Data Result diagrams: 03/12/24 15:27 03/12/24 15:27 <Bonny Leslie - Last Filed: 03/13/24 22:50> - Medical Decision Making I performed the quick note portion of this chart. Electronically signed by Judd Chang PA-C (Judd Chang) Was pt. sent in by a medical professional or institution ([facility]er, [employer], urgent care, hospital, or assisted...) When possible be specific @ -No Did you speak to anyone other than the patient for history (EMS, parent, family, police, friend...)? What history was obtained from this source @ -Spoke with the patient's mother for history Did you review nursing and triage notes (agree or disagree)? Why? @ -I reviewed and agree with nursing and triage notes Were old charts reviewed (outside hosp., previous admission, EMS record, old EKG, old radiological studies, urgent care reports/EKG's, assisted records)? Report findings @ -No old charts were reviewed Differential Diagnosis (chest pain, altered mental status, abdominal pain women, abdominal pain men, vaginal bleeding, weakness, fever, dyspnea, syncope, headache, dizziness, GI bleed, back pain, seizure, CVA, palpatations, mental health, musculoskeletal)? @ -Dislodged dialysis catheter, line infection EKG interpreted by me (3pts min.). @ -Not done X-rays interpreted by me (1pt min.). @ -None done CT interpreted by me (1pt min.). @ -None done U/S interpreted by me (1pt. min.). @ -None done What testing was considered but not performed or refused? (CT, X-rays, U/S, labs)? Why? @ -None What meds were considered but not given or refused? Why? @ -None Did you discuss the management of the patient with other professionals (professionals i.e. [facility] Waller, [employer], lab, RT, psych nurse, social media intern, metal cutter, teacher, traffic police officer, mattress spring encaser)? Give summary @ -Spoke with Dr. Jennings. She does present to the emergency department and evaluates the patient. States that the patient requires dialysis catheter exchange tomorrow Was smoking cessation discussed for >3mins.? @ -No Was critical care preformed (if so, how long)? @ -No Were there social determinants of health that impacted care today? How? (Homelessness, low income, unemployed, alcoholism, drug addiction, transportation, low edu. Level, literacy, decrease access to med. care, [facility], rehab)? @ -No Was there de-escalation of care discussed even if they declined (Discuss DNR or withdrawal of care, Hospice)? DNR status @ -No What co-morbidities impacted this encounter? (DM, HTN, Smoking, COPD, CAD, Cancer, CVA, ARF, Chemo, Hep., AIDS, mental health diagnosis, sleep apnea, morbid obesity)? @ -End-stage renal disease on hemodialysis Was patient admitted / discharged? Hospital course, mention meds given and route, prescriptions, significant lab abnormalities, going to OR and other pertinent info. @ -Upon arrival patient's catheter is evaluated and does appear to be externalized too far. I am concerned about the risk of infection and it as it has been about 4 days. I called and spoke with Dr. Jennings. She does evaluate the catheter. States that it needs to be replaced and she will do it tomorrow. Patient will be admitted to medicine. Spoke with Dr. Saavedra for the admission Undiagnosed new problem with uncertain prognosis? @ -No Drug Therapy requiring intensive monitoring for toxicity (Heparin, Nitro, In sulin, Cardizem)? @ -No Were any procedures done? @ -No Diagnosis/symptom? @ -Dislodged dialysis catheter, history of end-stage renal disease on home hemodialysis Acute, or Chronic, or Acute on Chronic? @ -Acute on chronic Uncomplicated (without systemic symptoms) or Complicated (systemic symptoms)? @ -Complicated Side effects of treatment? @ -No Exacerbation, Progression, or Severe Exacerbation? @ -No Poses a threat to life or bodily function? How? (Chest pain, USA, ME, pneumonia, PE, COPD, DKA, ARF, appy, cholecystitis, CVA, Diverticulitis, Homicidal, Suicidal, threat to staff... and all critical care pts) @ -Yes as patient requires his dialysis to survive (Bonny Leslie) - Lab Data Lab Results 03/12/24 03/12/24 Range/Units 15:27 15:27 WBC 4.4 (3.8-10.6) k/uL RBC 3.24 L (4.30-5.90) m/uL Hgb 9.5 L (13.0-17.5) gm/dL Hct 31.4 L (39.0-53.0) % MCV 96.9 (80.0-100.0) fL MCH 29.4 (25.0-35.0) pg MCHC 30.4 L (31.0-37.0) g/dL RDW 16.4 H (11.5-15.5) % Plt Count 161 (150-450) k/uL MPV 7.4 Neutrophils % 84 % Lymphocytes % 8 % Monocytes % 5 % Eosinophils % 2 % Basophils % 0 % Neutrophils # 3.7 (1.3-7.7) k/uL Lymphocytes # 0.4 L (1.0-4.8) k/uL Monocytes # 0.2 (0-1.0) k/uL Eosinophils # 0.1 (0-0.7) k/uL Basophils # 0.0 (0-0.2) k/uL Hypochromasia Marked Anisocytosis Slight Sodium 136 L (137-145) mmol/L Potassium 3.4 L (3.5-5.1) mmol/L Chloride 102 (98-107) mmol/L Carbon Dioxide 23 (22-30) mmol/L Anion Gap 11 mmol/L BUN 39 H (9-20) mg/dL Creatinine 8.03 H* (0.66-1.25) mg/dL Est GFR (CKD-EPI)AfAm 8 (>60 ml/min/1.73 sqM) Est GFR (CKD-EPI)NonAf 7 (>60 ml/min/1.73 sqM) Glucose 158 H (74-99) mg/dL Calcium 10.1 (8.4-10.2) mg/dL Total Bilirubin 0.5 (0.2-1.3) mg/dL AST 18 (17-59) U/L ALT 12 (4-49) U/L Alkaline Phosphatase 65 (38-126) U/L Total Protein 5.9 L (6.3-8.2) g/dL Albumin 3.9 (3.5-5.0) g/dL Disposition <Judd Chang - Last Filed: 03/12/24 15:13> Is patient prescribed a controlled substance at d/c from ED?: No Time of Disposition: 19:01 Decision to Admit Reason: Admit from EC Decision Date: 03/12/24 Decision Time: 19:01 <Bonny Leslie - Last Filed: 03/13/24 22:50> Clinical Impression: Complications, dialysis, catheter, mechanical Disposition: ADMITTED IP TO THIS HOSP Condition: Stable
[2024-03-12 15:35] LABS: Anisocytosis Slight; Basophils % (A) 0 %; Eosinophils # (A) 0.1 k/uL (0-0.7); Eosinophils % (A) 2 %; HCT 31.4 % (39.0-53.0); HGB 9.5 gm/dL (13.0-17.5); Hypochromasia Marked; Lymphocytes # (A) 0.4 k/uL (1.0-4.8); Lymphocytes % (A) 8 %; MCH 29.4 pg (25.0-35.0); MCHC 30.4 g/dL (31.0-37.0); MCV 96.9 fL (80.0-100.0); Mean Platelet Volume 7.4; Monocytes # (A) 0.2 k/uL (0-1.0); Monocytes % (A) 5 %; Neutrophils # (A) 3.7 k/uL (1.3-7.7); Neutrophils % (A) 84 %; Platelet Count 161 k/uL (150-450); RBC 3.24 m/uL (4.30-5.90); RDW 16.4 % (11.5-15.5); WBC 4.4 k/uL (3.8-10.6)
[2024-03-12 16:35] LABS: ALT 12 U/L (4-49); AST 18 U/L (17-59); African American GFR (CKD) 8 (>60 ml/min/1.73 sqM); Albumin 3.9 g/dL (3.5-5.0); Alkaline Phosphatase 65 U/L (38-126); Anion Gap 11 mmol/L; Blood Urea Nitrogen 39 mg/dL (9-20); Calcium 10.1 mg/dL (8.4-10.2); Carbon Dioxide 23 mmol/L (22-30); Chloride 102 mmol/L (98-107); Glucose 158 mg/dL (74-99); Non-African American GFR(CKD) 7 (>60 ml/min/1.73 sqM); Potassium 3.4 mmol/L (3.5-5.1); Sodium 136 mmol/L (137-145); Total Bilirubin 0.5 mg/dL (0.2-1.3); Total Protein 5.9 g/dL (6.3-8.2)
--- NOTE | 2024-03-12 18:25 | P.GSCN ---
History of Present Illness Consult date: 03/12/24 History of present illness: Patient is well-known to our service for need for multiple previous tunneled catheter placement. He presents to the ER today with a dislodged catheter. He states that yesterday they were able to do dialysis however it ran long at 5 hours for the treatment. They do home dialysis and do take care of it very well they believe. He says that recently it has been falling out and when the sutures tend to come out the catheter itself starts to follow-up further. He denies any fevers, chills, nausea, vomiting or issues otherwise Past Medical History Past Medical History: Atrial Fibrillation, Dialysis, Eye Disorder, GERD/Reflux, Renal Disease, Seizure Disorder, Thyroid Disorder Additional Past Medical History / Comment(s): Recent fall with quadriceps tendon rupture. Gout. Bruises easily. 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 Kidney transplant in 1998. Hemodialysis [facility] at home. Hx anemia with blood transfusion. 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 Hx diverticulitis. Hx Shingles 02/2021. Hx approximately 7 grand mal seizures in 2021 when on dialysis, unknown etiology, none since. Has nonactive left arm dialysis graft and functioning left groin dialysis port. Frequent headaches. Low blood pressure at times. History of Any Multi-Drug Resistant Organisms: None Reported Past Surgical History: Orthopedic Surgery Additional Past Surgical History / Comment(s): Fistula placement, thyroidectomy, kidney transplant, toenails removed. Left knee ortho surgery. Past Anesthesia/Blood Transfusion Reactions: No Reported Reaction Additional Past Anesthesia/Blood Transfusion Reaction / Comm: Blood transfusion - had no issues. Past Psychological History: No Psychological Hx Reported Smoking Status: Never smoker Past Alcohol Use History: None Reported Past Drug Use History: None Reported - Past Family History Mother Family Medical History: Fibromyalgia, Osteoarthritis (OA) Additional Family Medical History / Comment(s): Lupus Family Family Medical History: No Reported History Additional Family Medical History / Comment(s): ETOH abuse Medications and Allergies Home Medications Medication Instructions Recorded Confirmed Type Levothyroxine Sodium [Synthroid] 50 mcg PO DAILY 12/18/17 01/28/24 History Montelukast [Singulair] 10 mg PO HS 12/18/17 01/28/24 History predniSONE 10 mg PO DAILY 04/25/21 01/28/24 History Atorvastatin [Lipitor] 20 mg PO DAILY 10/15/22 01/28/24 History Midodrine HCl [ProAmatine] 10 mg PO QID 10/15/22 01/28/24 History calcitrioL 0.25 mcg PO SUTUTHSA 10/15/22 01/28/24 History calcitrioL 0.5 mcg PO MOWEFR 10/15/22 01/28/24 History Omeprazole [PriLOSEC] 20 mg PO HS 04/25/23 01/28/24 History allopurinoL 100 mg PO DAILY 06/23/23 01/28/24 History Calcium Carbonate [Tums] 500 mg PO QID PRN 12/08/23 01/28/24 History Fludrocortisone [Florinef] 0.1 mg PO DIRECTED 01/28/24 01/28/24 History Acetaminophen Tab [Tylenol] 650 mg PO Q6HR PRN tab 01/29/24 Rx Allergies Allergy/AdvReac Type Severity Reaction Status Date / Time adhesive tape Allergy Itching Verified 02/13/24 17:08 codeine Allergy Rash/Hives Verified 02/13/24 17:08 cyclobenzaprine Allergy Rash/Hives Verified 02/13/24 17:08 [From Flexeril] diphenhydramine Allergy Anaphylaxis Verified 02/13/24 17:08 [From Benadryl] hydromorphone [From Dilaudid] Allergy Rash/Hives Verified 02/13/24 17:08 hydroxyzine Allergy Anaphylaxis Verified 02/13/24 17:08 Iodinated Contrast Media Allergy Anaphylaxis Verified 02/13/24 17:08 [Iodinated Contrast- Oral and IV Dye] pantoprazole [From Protonix] Allergy Anaphylaxis Verified 02/13/24 17:08 Penicillins Allergy Rash/Hives Verified 02/13/24 17:08 potassium chloride Allergy Rash/Hives Verified 02/13/24 17:08 pregabalin [From Lyrica] Allergy Anaphylaxis Verified 02/13/24 17:08 sevelamer Allergy Rash/Hives Verified 02/13/24 17:08 warfarin [From Coumadin] Allergy Anaphylaxis Verified 02/13/24 17:08 acetaminophen [From Vicodin] AdvReac Nausea & Verified 02/13/24 17:08 Vomiting aripiprazole [From Abilify] AdvReac Abdominal Verified 02/13/24 17:08 Pain aztreonam AdvReac Unknown Verified 02/13/24 17:08 calcitriol AdvReac Unknown Verified 02/13/24 17:08 cefadroxil AdvReac Unknown Verified 02/13/24 17:08 enalapril AdvReac Unknown Verified 02/13/24 17:08 hydrocodone [From Vicodin] AdvReac Nausea & Verified 02/13/24 17:08 Vomiting Influenza Virus Vaccines AdvReac Unknown Verified 02/13/24 17:08 levofloxacin [From Levaquin] AdvReac Abdominal Verified 02/13/24 17:08 Pain meloxicam [From Mobic] AdvReac Abdominal Verified 02/13/24 17:08 Pain morphine AdvReac Unknown Verified 02/13/24 17:08 propoxyphene AdvReac Unknown Verified 02/13/24 17:08 Sulfa (Sulfonamide AdvReac Vomiting Verified 02/13/24 17:08 Antibiotics) tramadol AdvReac no Verified 02/13/24 17:08 allergy, just does not work for him Surgical - Exam Vital Signs Temp Pulse Resp BP Pulse Ox 98.1 F 120 H 20 100/68 95 03/12/24 14:49 03/12/24 14:49 03/12/24 14:49 03/12/24 14:49 03/12/24 14:49 General Is a pleasant cooperative male in no acute distress sitting at the bedside with his mother. HEENT is normocephalic, atraumatic, extraocular motion intact. Heart appears regular no respiratory distress. Abdomen is soft. Left groin tunneled catheter with cuff approximately 2 cm out from the skin. No erythema. No purulent drainage. Results - Labs 03/12/24 15:27 03/12/24 15:27 Abnormal Lab Results - Last 24 Hours (Table) 03/12/24 03/12/24 Range/Units 15:27 15:27 RBC 3.24 L (4.30-5.90) m/uL Hgb 9.5 L (13.0-17.5) gm/dL Hct 31.4 L (39.0-53.0) % MCHC 30.4 L (31.0-37.0) g/dL RDW 16.4 H (11.5-15.5) % Lymphocytes # 0.4 L (1.0-4.8) k/uL Sodium 136 L (137-145) mmol/L Potassium 3.4 L (3.5-5.1) mmol/L BUN 39 H (9-20) mg/dL Creatinine 8.03 H* (0.66-1.25) mg/dL Glucose 158 H (74-99) mg/dL Total Protein 5.9 L (6.3-8.2) g/dL Diabetes panel 03/12/24 Range/Units 15:27 Sodium 136 L (137-145) mmol/L Potassium 3.4 L (3.5-5.1) mmol/L Chloride 102 (98-107) mmol/L Carbon Dioxide 23 (22-30) mmol/L BUN 39 H (9-20) mg/dL Creatinine 8.03 H* (0.66-1.25) mg/dL Glucose 158 H (74-99) mg/dL Calcium 10.1 (8.4-10.2) mg/dL AST 18 (17-59) U/L ALT 12 (4-49) U/L Alkaline Phosphatase 65 (38-126) U/L Total Protein 5.9 L (6.3-8.2) g/dL Albumin 3.9 (3.5-5.0) g/dL Calcium panel 03/12/24 Range/Units 15:27 Calcium 10.1 (8.4-10.2) mg/dL Albumin 3.9 (3.5-5.0) g/dL Pituitary panel 03/12/24 Range/Units 15:27 Sodium 136 L (137-145) mmol/L Potassium 3.4 L (3.5-5.1) mmol/L Chloride 102 (98-107) mmol/L Carbon Dioxide 23 (22-30) mmol/L BUN 39 H (9-20) mg/dL Creatinine 8.03 H* (0.66-1.25) mg/dL Glucose 158 H (74-99) mg/dL Calcium 10.1 (8.4-10.2) mg/dL Adrenal panel 03/12/24 Range/Units 15:27 Sodium 136 L (137-145) mmol/L Potassium 3.4 L (3.5-5.1) mmol/L Chloride 102 (98-107) mmol/L Carbon Dioxide 23 (22-30) mmol/L BUN 39 H (9-20) mg/dL Creatinine 8.03 H* (0.66-1.25) mg/dL Glucose 158 H (74-99) mg/dL Calcium 10.1 (8.4-10.2) mg/dL Total Bilirubin 0.5 (0.2-1.3) mg/dL AST 18 (17-59) U/L ALT 12 (4-49) U/L Alkaline Phosphatase 65 (38-126) U/L Total Protein 5.9 L (6.3-8.2) g/dL Albumin 3.9 (3.5-5.0) g/dL Assessment and Plan Assessment: End-stage renal disease Dislodged tunneled catheter Plan: Plan for placement of tunneled catheter in left femoral site tomorrow. Patient has no other access points as he has occlusions at his other vessels. This is a end-stage location for him. Discussed with him the importance of caring for this as well as not doing anything aggressive this evening to cause it to fall out. It is currently taped in place and we will leave it so at this time
[2024-03-12] MEDS ORDERED: NALOXONE 0.4 MG/ML 1 ML VIAL IV PRN (19:01)
[2024-03-12] MEDS ORDERED: ACETAMINOPHEN TAB 325 MG TAB PO PRN (19:03)
[2024-03-12] MEDS: MONTELUKAST 10 MG TAB PO SCH (21:01)
[2024-03-12] MEDS: CALCIUM CARBONATE 500 MG CHEWABLE PO PRN (21:03)
[2024-03-12] MEDS: NON FORMULARY DRUG (Omeprazole 20 MG Capsule.Dr) PO SCH (21:18)
[2024-03-13] MEDS: MIDODRINE 5 MG TAB PO SCH (05:51)
[2024-03-13] MEDS: LEVOTHYROXINE 50 MCG TAB PO SCH (05:51)
[2024-03-13] MEDS: MIDAZOLAM 2 MG/2 ML VIAL IVP ONE (08:08)
[2024-03-13] MEDS: fentaNYL (PF) 50 MCG/ML 2 ML AMP IVP ONE (08:08)
[2024-03-13] MEDS: LIDOCAINE 1% INJ 10MG/ML (20 ML MDV) SQ ONE (08:09)
--- NOTE | 2024-03-13 08:55 | P.OP ---
Date of Procedure: 03/13/24 Description of Procedure: DATE OF PROCEDURE: 03/13/2024 PREOPERATIVE DIAGNOSIS: End-stage renal disease, dislodged previous left femoral tunneled dialysis catheter PROCEDURE: 1. Replacement of tunneled dialysis catheter with fluoroscopic assistance, 44 cm catheter 2. Moderate conscious sedation with certified monitoring certified RN administration x 20 minutes PROCEDURE: The patient was brought to the Distribution Associate placed in supine position. The bilateral groins and previously placed catheter on the left were prepped and draped in usual sterile fashion. A preprocedure timeout was performed, all parties were in agreement. The site overlying the entry to the vein was anesthetized with 1% lidocaine plain. Incision was made over this. Using blunt and sharp dissection, the catheter was dissected free and grasped with hemostats. It was transected and using Seldinger technique the large-bore dilator was placed and the channel attention was then turned towards the tunnel. The thigh was anesthetized with 1% lidocaine plain. A small kelsey and the skin was made at the exit site for the catheter and the previously flushed catheter was tunneled through the anticipated location. Using Seldinger technique and fluoroscopic assistance, the 35 Glidewire was placed and the tract was serially dilated. The final tear-away sheath was left in place. The inner cannula and wire were removed. The catheter was placed in the tear-away sheath was removed in standard fashion. The catheter showed good positioning was final resting place in the distal inferior vena cava. The catheter aspirated and flushed freely. The incision at the groin was reapproximated with interrupted sutures of 4-0 Vicryl. The catheter was sutured in place with 3-0 nylon. Dressings were placed. The patient was allowed to awaken from anesthesia and transferred to recovery in stable condition having tolerated the procedure well.
--- NOTE | 2024-03-13 09:05 | IR ---
EXAMINATION TYPE: IR cvc insert central tunneled DATE OF EXAM: 03/13/2024 8:54 AM COMPARISON: Pre Operative Images if available both CT/MRI or plain film CLINICAL INDICATION: Male, 53 years old with history of Hemodailysis Catheter Exchange, 0.4min 0.554 DAP; TECHNIQUE: IR cvc insert central tunneled, multiple fluoroscopic images provided for procedure. Total fluoroscopy time: 0.4 seconds Total submitted images to PACS: 11 DAP: 0.554 mGym2 Gycm2 uGym2 cGycm2 or equivalent. FINDINGS: Fluoroscopic images during catheter insertion demonstrates catheter tip projecting over the left sacr um. Mild degeneration changes of the lower spine. IMPRESSION: 1. No evidence for intraoperative complication. 2. Please see the operative/procedural note for further details. [facility], , 03/13/2024 9:03 AM
[2024-03-13] MEDS: ATORVASTATIN 20 MG TAB PO SCH (10:38)
[2024-03-13] MEDS: allopurinoL 100 MG TAB PO SCH (10:38)
[2024-03-13] MEDS: predniSONE 10 MG TAB PO SCH (10:38)
--- NOTE | 2024-03-13 14:43 | P.NPCON ---
History of Present Illness - Reason for Consult Consult date: 03/13/24 - Chief Complaint HD catheter malfunction - History of Present Illness 53-year-old male presented to the ER for evaluation of dialysis catheter malfunction. Patient reports for the past 2 days he has noticed it coming out of his skin. He was able to have dialysis completed but states it was difficult due to catheter becoming dislodged. Underwent catheter placement with vascular this morning. No other complaints. Vital signs are stable. General: No acute distress. HEENT: Head exam is unremarkable. LUNGS: No audible rhonchi or wheezes. HEART: Rate and Rhythm are regular. ABDOMEN: Nontender. EXTREMITITES: No edema. Review of Systems Constitutional: Reports as per HPI Past Medical History Past Medical History: Atrial Fibrillation, Dialysis, Eye Disorder, GERD/Reflux, Renal Disease, Seizure Disorder, Thyroid Disorder Additional Past Medical History / Comment(s): 06/2023 quadriceps tendon rupture. Gout. Bruises easily. 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 Kidney transplant in 1998. Hemodialysis FRI,FRI,FRI,FRI,SAT at home. Hx anemia with blood transfusion. 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 Hx diverticulitis. Hx Shingles 02/2021. Hx approximately 7 grand mal seizures in 2021 when on dialysis, unknown etiology, none since. Has nonactive left arm dialysis graft and left groin dialysis port. Frequent headaches. Low blood pressure at times. History of Any Multi-Drug Resistant Organisms: None Reported Past Surgical History: Orthopedic Surgery Additional Past Surgical History / Comment(s): Fistula placement, thyroidectomy, kidney transplant, toenails removed. Left knee ortho surgery. Past Anesthesia/Blood Transfusion Reactions: No Reported Reaction Additional Past Anesthesia/Blood Transfusion Reaction / Comment(s): Blood transfusion - had no issues. Past Psychological History: No Psychological Hx Reported Additional Psychological History / Comment(s): Pt resides with his mother who is his caregiver. Pt ambulates with cane after knee surgery /he memorizes where furniture is placed. Mother performs hemodialysis 4 days a week. 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 No home care. Smoking Status: Never smoker Past Alcohol Use History: None Reported Past Drug Use History: None Reported - Past Family History Mother Family Medical History: Fibromyalgia, Osteoarthritis (OA) Additional Family Medical History / Comment(s): Lupus Family Family Medical History: No Reported History Additional Family Medical History / Comment(s): ETOH abuse Medications and Allergies Home Medications Medication Instructions Recorded Confirmed Type Levothyroxine Sodium [Synthroid] 50 mcg PO DAILY 12/18/17 03/12/24 History Montelukast [Singulair] 10 mg PO HS 12/18/17 03/12/24 History predniSONE 10 mg PO DAILY 04/25/21 03/12/24 History Atorvastatin [Lipitor] 20 mg PO DAILY 10/15/22 03/12/24 History Midodrine HCl [ProAmatine] 10 mg PO QID 10/15/22 03/12/24 History calcitrioL 0.25 mcg PO SUTUTHSA 10/15/22 03/12/24 History calcitrioL 0.5 mcg PO MOWEFR 10/15/22 03/12/24 History Omeprazole [PriLOSEC] 20 mg PO HS 04/25/23 03/12/24 History allopurinoL 100 mg PO DAILY 06/23/23 03/12/24 History Calcium Carbonate [Tums] 500 mg PO QID PRN 12/08/23 03/12/24 History Acetaminophen Tab [Tylenol] 650 mg PO Q6HR PRN tab 01/29/24 03/12/24 Rx Allergies Allergy/AdvReac Type Severity Reaction Status Date / Time adhesive tape Allergy Itching Verified 03/12/24 18:51 codeine Allergy Rash/Hives Verified 03/12/24 18:51 cyclobenzaprine Allergy Rash/Hives Verified 03/12/24 18:51 [From Flexeril] diphenhydramine Allergy Anaphylaxis Verified 03/12/24 18:51 [From Benadryl] hydromorphone [From Dilaudid] Allergy Rash/Hives Verified 03/12/24 18:51 hydroxyzine Allergy Anaphylaxis Verified 03/12/24 18:51 Iodinated Contrast Media Allergy Anaphylaxis Verified 03/12/24 18:51 [Iodinated Contrast- Oral and IV Dye] pantoprazole [From Protonix] Allergy Anaphylaxis Verified 03/12/24 18:51 Penicillins Allergy Rash/Hives Verified 03/12/24 18:51 potassium chloride Allergy Rash/Hives Verified 03/12/24 18:51 pregabalin [From Lyrica] Allergy Anaphylaxis Verified 03/12/24 18:51 sevelamer Allergy Rash/Hives Verified 03/12/24 18:51 warfarin [From Coumadin] Allergy Anaphylaxis Verified 03/12/24 18:51 acetaminophen [From Vicodin] AdvReac Nausea & Verified 03/12/24 18:51 Vomiting aripiprazole [From Abilify] AdvReac Abdominal Verified 03/12/24 18:51 Pain aztreonam AdvReac Unknown Verified 03/12/24 18:51 calcitriol AdvReac Unknown Verified 03/12/24 18:51 cefadroxil AdvReac Unknown Verified 03/12/24 18:51 enalapril AdvReac Unknown Verified 03/12/24 18:51 hydrocodone [From Vicodin] AdvReac Nausea & Verified 03/12/24 18:51 Vomiting Influenza Virus Vaccines AdvReac Unknown Verified 03/12/24 18:51 levofloxacin [From Levaquin] AdvReac Abdominal Verified 03/12/24 18:51 Pain meloxicam [From Mobic] AdvReac Abdominal Verified 03/12/24 18:51 Pain morphine AdvReac Unknown Verified 03/12/24 18:51 propoxyphene AdvReac Unknown Verified 03/12/24 18:51 Sulfa (Sulfonamide AdvReac Vomiting Verified 03/12/24 18:51 Antibiotics) tramadol AdvReac no Verified 03/12/24 18:51 allergy, just does not work for him Physical Exam Vitals: Vital Signs Temp Pulse Pulse Resp BP BP Pulse Ox 03/13/24 09:17 101 H 18 137/84 98 03/13/24 09:02 105 H 16 114/80 89 L 03/13/24 08:47 115 H 16 139/80 94 L 03/13/24 08:40 101 H 18 03/13/24 07:19 97.9 F 99 16 127/66 98 03/13/24 05:54 116/67 03/13/24 01:49 97.8 F 109 H 16 130/75 99 03/12/24 22:41 97.5 F L 104 H 16 122/77 97 03/12/24 21:58 104 H 18 113/47 99 03/12/24 20:00 97.6 F 117 H 16 124/87 99 03/12/24 18:53 110 H 18 118/90 98 03/12/24 14:49 98.1 F 120 H 20 100/68 95 Intake and Output 03/12/24 03/13/24 03/13/24 22:59 06:59 14:59 Other: # Voids 2 Weight 81.647 kg Results - Lab Results Most recent lab results Calcium 10.1 mg/dL (8.4-10.2) 03/12/24 15:27 03/12/24 15:27 03/12/24 15:27 Assessment and Plan Assessment: 1. ESRD on HD TTS 2. HD Permcath dislodgment. Replaced by vascular today 3. Anemia with CKD 4. HTN with CKD 5. MBD with CKD Plan: Seen while on HD today, catheter functioning well. Clear for discharge after HD
[2024-03-13 17:11] VITALS: BP 114/70; PULSE 82; RESP 18; TEMP 98
[2024-03-13 23:02] LABS: Hepatitis B Surface Antigen Nonreactive (Nonreactive)
[2024-03-13 23:26] LABS: Hepatitis B Surface AB- Quant 3.5 mIU/mL
--- NOTE | 2024-03-15 09:08 | HP ---
HISTORY AND PHYSICAL CHIEF COMPLAINT: Dislodged left femoral tunneled dialysis catheter. HISTORY OF PRESENT ILLNESS: This is a 53-year-old gentleman with a past medical history of multiple medical problems including renal failure, had complaints of dialysis catheter coming out. The patient came to [facility] has replaced the tunneled dialysis catheter. Dialysis will be initiated and if the patient is able to tolerate the dialysis, the patient will be discharged home after clearance from Nephrology. There is no history of fever, rigors, or chills at this time. PAST MEDICAL HISTORY: Reviewed, includes chronic renal disease, on hemodialysis; atrial fibrillation also reviewed. HOME MEDICATIONS: Reviewed and include prednisone. Dose and rest of medications reviewed. ALLERGIES: Reviewed. Multiple allergies including Lyrica. Rest of allergies reviewed. FAMILY HISTORY: History of fibromyalgia, DJD, lupus. SOCIAL HISTORY: No history of smoking or alcohol. REVIEW OF SYSTEMS: A 14-point review of systems is negative except as mentioned earlier. PHYSICAL EXAMINATION: VITAL SIGNS: Pulse is 101, blood pressure 137/84, respirations 18. HEENT: Conjunctivae normal. NECK: No JVD. CARDIOVASCULAR: S1, S2. RESPIRATIONS: n ABDOMEN: Soft and nontender. LEGS: No edema. NERVOUS SYSTEM: Nonfocal. left groin new dialysis catheter present. LABORATORY DATA: Reviewed. ASSESSMENT: 1. Dislodged left femoral dialysis catheter and replacement by Vascular Surgery. 2. End-stage renal disease, on hemodialysis. 3. Atrial fibrillation history. 4. Seizure disorder history. 5. Multiple complex medical issues. RECOMMENDATIONS: This 53-year-old gentleman presented after dislodged dialysis catheter and new dialysis catheter has been inserted. The patient is scheduled to have dialysis. Currently, the patient is able to tolerate dialysis, and if okay with Nephrology, the patient will be discharged home and to continue the home medications. Please refer to the medication reconciliation sheet for the list of medications and followup will be recommended with primary physician and Nephrology Vascular Surgery. Once again, the patient will be discharged in stable condition and guarded prognosis. ZINAL / MISAELN: [id number] / AVA
== END 2024-03-13 18:05 | disposition home or self-care (01) ==
LOC: EC 14:37 → 6NMEDSUR 19:03 → 5NMEDONC 19:15
PROVIDERS: ADMIT Internal Medicine; ATTEND Internal Medicine
DX: T82.42XA Displacement of vascular dialysis catheter, initial encounter (principal); Y71.1 Therapeutic (nonsurgical) and rehabilitative cardiovascular devices associated with adverse incidents; Y83.8 Other surgical procedures as the cause of abnormal reaction of the patient, or of later complication, without mention of misadventure at the time of the procedure; D63.1 Anemia in chronic kidney disease; I12.0 Hypertensive chronic kidney disease with stage 5 chronic kidney disease or end stage renal disease; N18.6 End stage renal disease; E07.9 Disorder of thyroid, unspecified; K21.9 Gastro-esophageal reflux disease without esophagitis; H54.7 Unspecified visual loss; I48.91 Unspecified atrial fibrillation; M10.9 Gout, unspecified; G40.909 Epilepsy, unspecified, not intractable, without status epilepticus; Z79.890 Hormone replacement therapy; Z99.2 Dependence on renal dialysis; Z94.0 Kidney transplant status; Z79.899 Other long term (current) drug therapy; Z79.52 Long term (current) use of systemic steroids
CPT/HCPCS: 36581; 99285; 36415; 80053; 85025; 86706; 87340; G0378 ×2; C1750; C1769 ×2; J2250; J2003; J3010; J7512; 36558; 90935

== ENCOUNTER 2024-05-24 15:48 | Observation (INO) | payer MEDICARE ==
--- NOTE | 2024-05-24 16:23 | ED ---
General Adult HPI - General Chief complaint: Recheck/Abnormal Lab/Rx Stated complaint: cath issue Time Seen by Provider: 05/24/24 15:55 Source: patient, RN notes reviewed, old records reviewed Mode of arrival: wheelchair Limitations: no limitations - History of Present Illness Initial comments: Is a 53-year-old male who presents to the emergency department stating that his dialysis catheter has come out about 8 inches. According to the patient it does not function any longer. Patient denies any pain or any other issues. - Related Data Home Medications Medication Instructions Recorded Confirmed Levothyroxine Sodium [Synthroid] 50 mcg PO DAILY 12/18/17 03/12/24 Montelukast [Singulair] 10 mg PO HS 12/18/17 03/12/24 predniSONE 10 mg PO DAILY 04/25/21 03/12/24 Atorvastatin [Lipitor] 20 mg PO DAILY 10/15/22 03/12/24 Midodrine HCl [ProAmatine] 10 mg PO QID 10/15/22 03/12/24 calcitrioL 0.25 mcg PO SUTUTHSA 10/15/22 03/12/24 calcitrioL 0.5 mcg PO MOWEFR 10/15/22 03/12/24 Omeprazole [PriLOSEC] 20 mg PO HS 04/25/23 03/12/24 allopurinoL 100 mg PO DAILY 06/23/23 03/12/24 Calcium Carbonate [Tums] 500 mg PO QID PRN 12/08/23 03/12/24 Previous Rx's Medication Instructions Recorded Acetaminophen Tab [Tylenol] 650 mg PO Q6HR PRN tab 01/29/24 Allergies Allergy/AdvReac Type Severity Reaction Status Date / Time adhesive tape Allergy Itching Verified 05/24/24 15:53 codeine Allergy Rash/Hives Verified 05/24/24 15:53 cyclobenzaprine Allergy Rash/Hives Verified 05/24/24 15:53 [From Flexeril] diphenhydramine Allergy Anaphylaxis Verified 05/24/24 15:53 [From Benadryl] hydromorphone [From Dilaudid] Allergy Rash/Hives Verified 05/24/24 15:53 hydroxyzine Allergy Anaphylaxis Verified 05/24/24 15:53 Iodinated Contrast Media Allergy Anaphylaxis Verified 05/24/24 15:53 [Iodinated Contrast- Oral and IV Dye] pantoprazole [From Protonix] Allergy Anaphylaxis Verified 05/24/24 15:53 Penicillins Allergy Rash/Hives Verified 05/24/24 15:53 potassium chloride Allergy Rash/Hives Verified 05/24/24 15:53 pregabalin [From Lyrica] Allergy Anaphylaxis Verified 05/24/24 15:53 sevelamer Allergy Rash/Hives Verified 05/24/24 15:53 warfarin [From Coumadin] Allergy Anaphylaxis Verified 05/24/24 15:53 acetaminophen [From Vicodin] AdvReac Nausea & Verified 05/24/24 15:53 Vomiting aripiprazole [From Abilify] AdvReac Abdominal Verified 05/24/24 15:53 Pain aztreonam AdvReac Unknown Verified 05/24/24 15:53 calcitriol AdvReac Unknown Verified 05/24/24 15:53 cefadroxil AdvReac Unknown Verified 05/24/24 15:53 enalapril AdvReac Unknown Verified 05/24/24 15:53 hydrocodone [From Vicodin] AdvReac Nausea & Verified 05/24/24 15:53 Vomiting Influenza Virus Vaccines AdvReac Unknown Verified 05/24/24 15:53 levofloxacin [From Levaquin] AdvReac Abdominal Verified 05/24/24 15:53 Pain meloxicam [From Mobic] AdvReac Abdominal Verified 05/24/24 15:53 Pain morphine AdvReac Unknown Verified 05/24/24 15:53 propoxyphene AdvReac Unknown Verified 05/24/24 15:53 Sulfa (Sulfonamide AdvReac Vomiting Verified 05/24/24 15:53 Antibiotics) tramadol AdvReac no Verified 05/24/24 15:53 allergy, just does not work for him Review of Systems ROS Statement: Those systems with pertinent positive or pertinent negative responses have been documented in the HPI. ROS Other: All systems not noted in ROS Statement are negative. Past Medical History Past Medical History: Atrial Fibrillation, Dialysis, Eye Disorder, GERD/Reflux, Renal Disease, Seizure Disorder, Thyroid Disorder Additional Past Medical History / Comment(s): 06/2023 quadriceps tendon rupture. Gout. Bruises easily. 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 Kidney transplant in 1998. Hemodialysis MON,TUE,FRI,FRI,SAT at home. Hx anemia with blood transfusion. 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 Hx diverticulitis. Hx Shingles 02/2021. Hx approximately 7 grand mal seizures in 2021 when on dialysis, unknown etiology, none since. Has nonactive left arm dialysis graft and left groin dialysis port. Frequent headaches. Low blood pressure at times. History of Any Multi-Drug Resistant Organisms: None Reported Past Surgical History: Orthopedic Surgery Additional Past Surgical History / Comment(s): Fistula placement, thyroidectomy, kidney transplant, toenails removed. Left knee ortho surgery. Past Anesthesia/Blood Transfusion Reactions: No Reported Reaction Additional Past Anesthesia/Blood Transfusion Reaction / Comment(s): Blood transfusion - had no issues. Past Psychological History: No Psychological Hx Reported Smoking Status: Never smoker Past Alcohol Use History: None Reported Past Drug Use History: None Reported - Past Family History Mother Family Medical History: Fibromyalgia, Osteoarthritis (OA) Additional Family Medical History / Comment(s): Lupus Family Family Medical History: No Reported History Additional Family Medical History / Comment(s): ETOH abuse General Exam - General Exam Comments Initial Comments: GENERAL: Patient is well-developed and well-nourished. Patient is nontoxic and well- hydrated and is in no acute distress. ENT: Neck is soft and supple. No significant lymphadenopathy is noted. Oropharynx is clear. Moist mucous membranes. Neck has full range of motion without eliciting any pain. EYES: The sclera were anicteric and conjunctiva were pink and moist. Extraocular movements were intact and pupils were equal round and reactive to light. Eyelids were unremarkable. PULMONARY: Unlabored respirations. Good breath sounds bilaterally. No audible rales rhonchi or wheezing was noted. CARDIOVASCULAR: There is a regular rate and rhythm without any murmurs gallops or rubs. ABDOMEN: Soft and nontender with normal bowel sounds. Catheter in the left groin appears to be out by 8 inches SKIN: Skin is clear with no lesions or rashes and otherwise unremarkable. NEUROLOGIC: Patient is alert and oriented x3. Cranial nerves II through XII are grossly intact. Motor and sensory are also intact. Normal speech, volume and content. Symmetrical smile. MUSCULOSKELETAL: Normal extremities with adequate strength and full range of motion. LYMPHATICS: No significant lymphadenopathy is noted PSYCHIATRIC: Normal psychiatric evaluation. Limitations: no limitations Course Vital Signs 05/24/24 15:49 Temperature 98.1 F Pulse Rate 95 Respiratory 18 Rate Blood Pressure 101/61 O2 Sat by Pulse 95 Oximetry Medical Decision Making - Medical Decision Making Was pt. sent in by a medical professional or institution (, [facility], [employer], urgent care, hospital, or care home...) When possible be specific @ -No Did you speak to anyone other than the patient for history (EMS, parent, family, police, friend...)? What history was obtained from this source @ -No Did you review nursing and triage notes (agree or disagree)? Why? @ -I reviewed and agree with nursing and triage notes Were old charts reviewed (outside hosp., previous admission, EMS record, old EKG, old radiological studies, urgent care reports/EKG's, care home records)? Report findings @ -No old charts were reviewed Differential Diagnosis? @ -Catheter dislodged functional versus nonfunctional EKG interpreted by me (3pts min.). @ -As above X-rays interpreted by me (1pt min.). @ -None done CT interpreted by me (1pt min.). @ -None done U/S interpreted by me (1pt. min.). @ -None done What testing was considered but not performed or refused? (CT, X-rays, U/S, labs)? Why? @ -None What meds were considered but not given or refused? Why? @ -None Did you discuss the management of the patient with other professionals (professionals i.e. , [facility], [employer], lab, RT, psych nurse, social service technician, coal and ash supervisor, teacher, property disposal officer, case management coordinator)? Give summary @ -Spoke with Dr. Keys and he agreed the patient needed to be admitted if the catheter was not functional. I spoke with [facility] and they agreed to admit the patient Was smoking cessation discussed for >3mins.? @ -No Was critical care preformed (if so, how long)? @ -No Were there social determinants of health that impacted care today? How? (Homelessness, low income, unemployed, alcoholism, drug addiction, transportation, low edu. Level, literacy, decrease access to med. care, longterm, rehab)? @ -No Was there de-escalation of care discussed even if they declined (Discuss DNR or withdrawal of care, Hospice)? DNR status @ -No What co-morbidities impacted this encounter? (DM, HTN, Smoking, COPD, CAD, Cancer, CVA, ARF, Chemo, Hep., AIDS, mental health diagnosis, sleep apnea, morbid obesity)? @ -None Was patient aditted / discharged? Hospital course, mention meds given and route, prescriptions, significant lab abnormalities, going to OR and other pertinent info. @ -I admitted the patient [facility] and consult to Dr. Keys so he could put another catheter in place Undiagnosed new problem with uncertain prognosis? @ -No Drug Therapy requiring intensive monitoring for toxicity (Heparin, Nitro, Insuli n, Cardizem)? @ -No Were any procedures done? @ -No Diagnosis/symptom? @ -Dialysis catheter displacement Acute, or Chronic, or Acute on Chronic? @ -Acute Uncomplicated (without systemic symptoms) or Complicated (systemic symptoms)? @ -Complicated Side effects of treatment? @ -No Exacerbation, Progression, or Severe Exacerbation? @ -No Poses a threat to life or bodily function? How? (Chest pain, [place], [place], pneumonia, PE, COPD, DKA, ARF, appy, cholecystitis, CVA, Diverticulitis, Homicidal, Suicidal, threat to staff... and all critical care pts) @ -No Disposition Clinical Impression: Displacement of vascular dialysis catheter Disposition: ADMITTED IP TO THIS HOSP Referrals: Mychal Jerome DO [Primary Care Provider] - 1-2 days Time of Disposition: 16:40
[2024-05-24] MEDS ORDERED: ACETAMINOPHEN TAB 325 MG TAB PO PRN (20:14)
[2024-05-24] MEDS ORDERED: CALCIUM CARBONATE 500 MG CHEWABLE PO PRN (20:14)
[2024-05-24] MEDS: OMEPRAZOLE 20 MG PO SCH (20:34)
[2024-05-24] MEDS: MONTELUKAST 10 MG TAB PO SCH (20:34)
[2024-05-24] MEDS ORDERED: MIDODRINE 5 MG TAB PO SCH (22:00)
[2024-05-25] MEDS: LEVOTHYROXINE 50 MCG TAB PO SCH (05:59)
[2024-05-25] MEDS: MIDODRINE 5 MG TAB PO SCH (05:59)
[2024-05-25] MEDS: allopurinoL 100 MG TAB PO SCH (08:10)
[2024-05-25] MEDS: predniSONE 10 MG TAB PO SCH (08:10)
[2024-05-25] MEDS: ATORVASTATIN 20 MG TAB PO SCH (08:10)
[2024-05-25 08:11] LABS: Anisocytosis Slight; HCT 42.9 % (39.0-53.0); HGB 12.9 gm/dL (13.0-17.5); Hypochromasia Marked; MCH 30.4 pg (25.0-35.0); MCV 101.2 fL (80.0-100.0); Macrocytosis Slight; Mean Platelet Volume 7.2; Platelet Count 127 k/uL (150-450); RBC 4.24 m/uL (4.30-5.90); RDW 16.6 % (11.5-15.5); WBC 4.8 k/uL (3.8-10.6)
--- NOTE | 2024-05-25 08:21 | P.GSCN ---
History of Present Illness Consult date: 05/25/24 Reason for Consult: Displaced hemodialysis catheter Requesting physician: Bryant Monterroso History of present illness: This a 53-year-old male with end-stage renal disease well-known to vascular surgical services with multiple replaced hemodialysis tunneled catheters. Patient presented yesterday to the emergency department with complaints of displaced catheter from his left thigh. States his last hemodialysis was on Friday. He is a Friday and Friday schedule at home. He denies any shortness of breath or chest pain. No extremity swelling. Labs are currently not available at this time. Review of Systems A 14 point review systems was completed all pertinent positives and negatives as stated in the HPI. Past Medical History Past Medical History: Atrial Fibrillation, Dialysis, Eye Disorder, GERD/Reflux, Renal Disease, Seizure Disorder, Thyroid Disorder Additional Past Medical History / Comment(s): 06/2023 quadriceps tendon rupture. Gout. Bruises easily. 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 Kidney tra nsplant in 1998. Hemodialysis FRI,FRI,FRI,FRI,SAT at home. Hx anemia with blood transfusion. 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 Hx diverticulitis. Hx Shingles 02/2021. Hx approximately 7 grand mal seizures in 2021 when on dialysis, unknown etiology, none since. Has nonactive left arm dialysis graft and left groin dialysis port. Frequent headaches. Low blood pressure at times. History of Any Multi-Drug Resistant Organisms: None Reported Past Surgical History: Orthopedic Surgery Additional Past Surgical History / Comment(s): Fistula placement, thyroidectomy, kidney transplant, toenails removed. Left knee ortho surgery. Past Anesthesia/Blood Transfusion Reactions: No Reported Reaction Additional Past Anesthesia/Blood Transfusion Reaction / Comm: Blood transfusion - had no issues. Past Psychological History: No Psychological Hx Reported Additional Psychological History / Comment(s): Pt resides with his mother who is his caregiver. Pt ambulates with cane after knee surgery /he memorizes where furniture is placed. Mother performs hemodialysis 4 days a week. 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 No home care. Smoking Status: Never smoker Past Alcohol Use History: None Reported Past Drug Use History: None Reported - Past Family History Mother Family Medical History: Fibromyalgia, Osteoarthritis (OA) Additional Family Medical History / Comment(s): Lupus Family Family Medical History: No Reported History Additional Family Medical History / Comment(s): ETOH abuse Medications and Allergies Home Medications Medication Instructions Recorded Confirmed Type Levothyroxine Sodium [Synthroid] 50 mcg PO DAILY 12/18/17 05/24/24 History Montelukast [Singulair] 10 mg PO HS 12/18/17 05/24/24 History predniSONE 10 mg PO DAILY 04/25/21 05/24/24 History Atorvastatin [Lipitor] 20 mg PO DAILY 10/15/22 05/24/24 History Midodrine HCl [ProAmatine] 10 mg PO QID 10/15/22 05/24/24 History calcitrioL 0.25 mcg PO SUTUTHSA 10/15/22 05/24/24 History calcitrioL 0.5 mcg PO MOWEFR 10/15/22 05/24/24 History Omeprazole [PriLOSEC] 20 mg PO HS 04/25/23 05/24/24 History allopurinoL 100 mg PO DAILY 06/23/23 05/24/24 History Calcium Carbonate [Tums] 500 mg PO QID PRN 12/08/23 05/24/24 History Acetaminophen Tab [Tylenol] 650 mg PO Q6HR PRN tab 01/29/24 05/24/24 Rx Allergies Allergy/AdvReac Type Severity Reaction Status Date / Time adhesive tape Allergy Itching Verified 05/24/24 16:47 codeine Allergy Rash/Hives Verified 05/24/24 16:47 cyclobenzaprine Allergy Rash/Hives Verified 05/24/24 16:47 [From Flexeril] diphenhydramine Allergy Anaphylaxis Verified 05/24/24 16:47 [From Benadryl] hydromorphone [From Dilaudid] Allergy Rash/Hives Verified 05/24/24 16:47 hydroxyzine Allergy Anaphylaxis Verified 05/24/24 16:47 Iodinated Contrast Media Allergy Anaphylaxis Verified 05/24/24 16:47 [Iodinated Contrast- Oral and IV Dye] pantoprazole [From Protonix] Allergy Anaphylaxis Verified 05/24/24 16:47 Penicillins Allergy Rash/Hives Verified 05/24/24 16:47 potassium chloride Allergy Rash/Hives Verified 05/24/24 16:47 pregabalin [From Lyrica] Allergy Anaphylaxis Verified 05/24/24 16:47 sevelamer Allergy Rash/Hives Verified 05/24/24 16:47 warfarin [From Coumadin] Allergy Anaphylaxis Verified 05/24/24 16:47 acetaminophen [From Vicodin] AdvReac Nausea & Verified 05/24/24 16:47 Vomiting aripiprazole [From Abilify] AdvReac Abdominal Verified 05/24/24 16:47 Pain aztreonam AdvReac Unknown Verified 05/24/24 16:47 calcitriol AdvReac Unknown Verified 05/24/24 16:47 cefadroxil AdvReac Unknown Verified 05/24/24 16:47 enalapril AdvReac Unknown Verified 05/24/24 16:47 hydrocodone [From Vicodin] AdvReac Nausea & Verified 05/24/24 16:47 Vomiting Influenza Virus Vaccines AdvReac Unknown Verified 05/24/24 16:47 levofloxacin [From Levaquin] AdvReac Abdominal Verified 05/24/24 16:47 Pain meloxicam [From Mobic] AdvReac Abdominal Verified 05/24/24 16:47 Pain morphine AdvReac Unknown Verified 05/24/24 16:47 propoxyphene AdvReac Unknown Verified 05/24/24 16:47 Sulfa (Sulfonamide AdvReac Vomiting Verified 05/24/24 16:47 Antibiotics) tramadol AdvReac no Verified 05/24/24 16:47 allergy, just does not work for him Surgical - Exam Vital Signs Temp Pulse Resp BP Pulse Ox 98.1 F 95 18 101/61 95 05/24/24 15:49 05/24/24 15:49 05/24/24 15:49 05/24/24 15:49 05/24/24 15:49 General appearance: The patient is alert, oriented, appears in no acute distress. HET: Head is normocephalic and atraumatic. Neck: Supple. Heart: Irregularly irregular. Systolic murmur Lungs: Equal expansion, normal respiratory effort. Abdomen: Soft, nondistended. Extremities: Normal skin color and turgor. Left thigh with dressing clean dry and intact. Neurological: No focal deficits noted. Alert and oriented. Results - Labs 05/25/24 07:37 Assessment and Plan Assessment: 1. Displaced left femoral hemodialysis tunnel catheter 2. End-stage renal disease requiring hemodialysis Plan: 1. Keep n.p.o. 2. Plan for hemodialysis tunneled catheter replacement 3. Rest of medical management per primary medical team Thank you for this consultation, discharge pending HD catheter placement and per primary medical team. The impression and plan of care has been dictated as directed. Dr. Celina Yancey I performed a history and examination of this patient, discussed the same with the dictator. I agree with the dictator's note ,documented as a scribe. Any additional findings or plans will be noted.
[2024-05-25 08:23] LABS: ALT 10 U/L (4-49); AST 14 U/L (17-59); African American GFR (CKD) 5 (>60 ml/min/1.73 sqM); Albumin 3.5 g/dL (3.5-5.0); Albumin/Globulin Ratio 1.8; Alkaline Phosphatase 52 U/L (38-126); Anion Gap 15 mmol/L; Blood Urea Nitrogen 65 mg/dL (9-20); Calcium 10.7 mg/dL (8.4-10.2); Carbon Dioxide 24 mmol/L (22-30); Chloride 98 mmol/L (98-107); Globulin 1.9 g/dL; Glucose 78 mg/dL (74-99); Magnesium 2.1 mg/dL (1.6-2.3); Non-African American GFR(CKD) 4 (>60 ml/min/1.73 sqM); Potassium 4.1 mmol/L (3.5-5.1); Sodium 137 mmol/L (137-145); Total Bilirubin 0.5 mg/dL (0.2-1.3); Total Protein 5.4 g/dL (6.3-8.2)
[2024-05-25] MEDS: MIDAZOLAM 2 MG/2 ML VIAL IVP ONE (09:05)
[2024-05-25] MEDS: fentaNYL (PF) 50 MCG/ML 2 ML AMP IVP ONE (09:05)
[2024-05-25] MEDS: LIDOCAINE 1% INJ 10MG/ML (20 ML MDV) SQ ONE (09:07)
[2024-05-25] MEDS: SODIUM CHLORIDE 0.9% 250 ML IV ONE (09:10)
[2024-05-25] MEDS: HEPARIN SODIUM 1,000 UN/ML (10ML VL) IV ONE (09:22)
--- NOTE | 2024-05-25 09:44 | P.OP ---
Date of Procedure: 05/25/24 Description of Procedure: DATE OF PROCEDURE: 05/25/2024 PREOPERATIVE DIAGNOSIS: End-stage renal disease, dislodged previous left femoral tunneled dialysis catheter PROCEDURE: 1. Ultrasound-guided left common femoral vein access 2. Fluoroscopic assisted placement of tunneled dialysis catheter with fluorosco pic assistance, 44 cm catheter 3. Moderate conscious sedation with certified monitoring certified RN administration x 16 minutes PROCEDURE: The patient was brought to the [place] Strip placed in supine position. The bilateral groins were prepped and draped in usual sterile fashion. A preprocedure timeout was performed, all parties were in agreement. The ultrasound was utilized and the left common femoral vein was identified. It found patent with no significant thrombus or occlusive disease. Under direct visualization, the vein was accessed with a permanent image stored. There was mild resistance at the iliac vein however the wire traversed fine without significant issue into the inferior vena cava. Attention was then towards the tunnel and catheter. The thigh was anesthetized with 1% lidocaine plain. A small kelsey and the skin was made at the exit site for the catheter and the previously flushed catheter was tunneled through the anticipated location. Then under fluoroscopic guidance, the area of the vein was dilated serially to the tear-away sheath. The final tear-away sheath was left in place. The inner cannula and wire were removed. The catheter was placed in the tear-away sheath was removed in standard fashion. There was some resistance getting the catheter itself up the iliac vein therefore it was retracted over a wire ultimately, the catheter showed good positioning was final resting place in the distal inferior vena cava. The catheter aspirated and flushed freely. The incision at the groin was reapproximated with interrupted sutures of 4-0 Vicryl. The catheter was sutured in place with 2-0 nylon. Dressings were placed. The patient was allowed to awaken from anesthesia and transferred to recovery in stable condition having tolerated the procedure well.
--- NOTE | 2024-05-25 09:47 | IR ---
EXAMINATION TYPE: IR cvc insert central tunneled DATE OF EXAM: 05/25/2024 9:41 AM COMPARISON: Pre Operative Images if available both CT/MRI or plain film CLINICAL INDICATION: Male, 53 years old with history of Dialysis, 1.0m/2.5DAP, 14.5F X 44cm Dailysis catheter; TECHNIQUE: IR cvc insert central tunneled, multiple fluoroscopic images provided for procedure. DAP: 2.5 mGym2 Gycm2 uGym2 cGycm2 or equivalent. FINDINGS: IMPRESSION: 1. Report was generated for administrative purposes only. 2. Please see the operative/procedural note for further details. [facility], , 05/25/2024 9:45 AM
--- NOTE | 2024-05-25 10:52 | P.HPIM ---
History of Present Illness H&P Date: 05/25/24 This is a 53-year-old male with medical history of atrial fibrillation, Gastroesophageal reflux, hemodialysis presents to the ER yesterday afternoon stating that his hemodialysis catheter has come out about 8 inches and was nonfunctioning. He has a groin permacatheter and lives at home with his mother who performs his hemodialysis Friday schedule. He is not complaining of any pain shortness of breath chest discomfort. Patient was recently admitted on March 13, 2024 for the same for dialysis catheter dislodgment. Vascular surgery was consulted and patient is now status post left groin hemodialysis permacath. BUN today 65, creatinine 12.01. MCV 101.2. His mom is at the bedside and wants to take him home. REVIEW OF SYSTEMS: CONSTITUTIONAL: No fever, no malaise, no fatigue. HEENT: No recent visual problems or hearing problems. Denied any sore throat. CARDIOVASCULAR: No chest pain, orthopnea, PND, no palpitations, no syncope. PULMONARY: No shortness of breath, no cough, no hemoptysis. GASTROINTESTINAL: No diarrhea, no nausea, no vomiting, no abdominal pain. NEUROLOGICAL: No headaches, no weakness, no numbness. HEMATOLOGICAL: Denies any bleeding or petechiae. GENITOURINARY: Denies any burning micturition, frequency, or urgency. MUSCULOSKELETAL/RHEUMATOLOGICAL: Denies any joint pain, swelling, or any muscle pain. ENDOCRINE: Denies any polyuria or polydipsia. The rest of the 14-point review of systems is negative. PHYSICAL EXAMINATION: GENERAL: The patient is alert and oriented x3, not in any acute distress. Well developed, well nourished. HEENT: Pupils are round and equally reacting to light. EOMI. No scleral icterus. No conjunctival pallor. Normocephalic, atraumatic. No pharyngeal erythema. No thyromegaly. CARDIOVASCULAR: S1 and S2 present. No murmurs, rubs, or gallops. PULMONARY: Chest is clear to auscultation, no wheezing or crackles. ABDOMEN: Soft, nontender, nondistended, normoactive bowel sounds. No palpable organomegaly. MUSCULOSKELETAL: No joint swelling or deformity. EXTREMITIES: No cyanosis, clubbing, or pedal edema. NEUROLOGICAL: Gross neurological examination did not reveal any focal deficits. SKIN: No rashes. Assessment Hemodialysis cath permacath dislodgment has been replaced by vascular surgery. End-stage renal disease maintained on hemodialysis on a Friday schedule Hypertension with chronic kidney disease hypothyroidism History of hypothyroidism History of failed renal transplant History of seizure disorder Chronic atrial fibrillation not on any anticoagulation on an outpatient basis GI prophylaxis Plan Permacath has been replaced in the left groin Patient will return home on all same home medications Hemodialysis today and patient does this at home. Follow up PCP 1 to 2 days The impression and plan of care has been dictated by Afshan Mejia, Nurse Practitioner as directed. Dr. Becki MD I have performed a history and physical examination and medical decision making of this patient, discussed the same with the dictator, and agree with the dictators assessment and plan as written, documented as a scribe. Based on total visit time, I have performed more than 50% of this visit. Past Medical History Past Medical History: Atrial Fibrillation, Dialysis, Eye Disorder, GERD/Reflux, Renal Disease, Seizure Disorder, Thyroid Disorder Additional Past Medical History / Comment(s): 06/2023 quadriceps tendon rupture. Gout. Bruises easily. 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 Kidney transplant in 1998. Hemodialysis FRI,FRI,FRI,FRI,SAT at home. Hx anemia with blood transfusion. 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 Hx diverticulitis. Hx Shingles 02/2021. Hx approximately 7 grand mal seizures in 2021 when on dialysis, unknown etiology, none since. Has nonactive left arm dialysis graft and left groin dialysis port. Frequent headaches. Low blood pressure at times. History of Any Multi-Drug Resistant Organisms: None Reported Past Surgical History: Orthopedic Surgery Additional Past Surgical History / Comment(s): Fistula placement, thyroidectomy, kidney transplant, toenails removed. Left knee ortho surgery. Past Anesthesia/Blood Transfusion Reactions: No Reported Reaction Additional Past Anesthesia/Blood Transfusion Reaction / Comment(s): Blood tr ansfusion - had no issues. Past Psychological History: No Psychological Hx Reported Additional Psychological History / Comment(s): Pt resides with his mother who is his caregiver. Pt ambulates with cane after knee surgery /he memorizes where furniture is placed. Mother performs hemodialysis 4 days a week. 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 No home care. Smoking Status: Never smoker Past Alcohol Use History: None Reported Past Drug Use History: None Reported - Past Family History Mother Family Medical History: Fibromyalgia, Osteoarthritis (OA) Additional Family Medical History / Comment(s): Lupus Family Family Medical History: No Reported History Additional Family Medical History / Comment(s): ETOH abuse Medications and Allergies Home Medications Medication Instructions Recorded Confirmed Type Levothyroxine Sodium [Synthroid] 50 mcg PO DAILY 12/18/17 05/24/24 History Montelukast [Singulair] 10 mg PO HS 12/18/17 05/24/24 History predniSONE 10 mg PO DAILY 04/25/21 05/24/24 History Atorvastatin [Lipitor] 20 mg PO DAILY 10/15/22 05/24/24 History Midodrine HCl [ProAmatine] 10 mg PO QID 10/15/22 05/24/24 History calcitrioL 0.25 mcg PO SUTUTHSA 10/15/22 05/24/24 History calcitrioL 0.5 mcg PO MOWEFR 10/15/22 05/24/24 History Omeprazole [PriLOSEC] 20 mg PO HS 04/25/23 05/24/24 History allopurinoL 100 mg PO DAILY 06/23/23 05/24/24 History Calcium Carbonate [Tums] 500 mg PO QID PRN 12/08/23 05/24/24 History Acetaminophen Tab [Tylenol] 650 mg PO Q6HR PRN tab 01/29/24 05/24/24 Rx Allergies Allergy/AdvReac Type Severity Reaction Status Date / Time adhesive tape Allergy Itching Verified 05/24/24 16:47 codeine Allergy Rash/Hives Verified 05/24/24 16:47 cyclobenzaprine Allergy Rash/Hives Verified 05/24/24 16:47 [From Flexeril] diphenhydramine Allergy Anaphylaxis Verified 05/24/24 16:47 [From Benadryl] hydromorphone [From Dilaudid] Allergy Rash/Hives Verified 05/24/24 16:47 hydroxyzine Allergy Anaphylaxis Verified 05/24/24 16:47 Iodinated Contrast Media Allergy Anaphylaxis Verified 05/24/24 16:47 [Iodinated Contrast- Oral and IV Dye] pantoprazole [From Protonix] Allergy Anaphylaxis Verified 05/24/24 16:47 Penicillins Allergy Rash/Hives Verified 05/24/24 16:47 potassium chloride Allergy Rash/Hives Verified 05/24/24 16:47 pregabalin [From Lyrica] Allergy Anaphylaxis Verified 05/24/24 16:47 sevelamer Allergy Rash/Hives Verified 05/24/24 16:47 warfarin [From Coumadin] Allergy Anaphylaxis Verified 05/24/24 16:47 acetaminophen [From Vicodin] AdvReac Nausea & Verified 05/24/24 16:47 Vomiting aripiprazole [From Abilify] AdvReac Abdominal Verified 05/24/24 16:47 Pain aztreonam AdvReac Unknown Verified 05/24/24 16:47 calcitriol AdvReac Unknown Verified 05/24/24 16:47 cefadroxil AdvReac Unknown Verified 05/24/24 16:47 enalapril AdvReac Unknown Verified 05/24/24 16:47 hydrocodone [From Vicodin] AdvReac Nausea & Verified 05/24/24 16:47 Vomiting Influenza Virus Vaccines AdvReac Unknown Verified 05/24/24 16:47 levofloxacin [From Levaquin] AdvReac Abdominal Verified 05/24/24 16:47 Pain meloxicam [From Mobic] AdvReac Abdominal Verified 05/24/24 16:47 Pain morphine AdvReac Unknown Verified 05/24/24 16:47 propoxyphene AdvReac Unknown Verified 05/24/24 16:47 Sulfa (Sulfonamide AdvReac Vomiting Verified 05/24/24 16:47 Antibiotics) tramadol AdvReac no Verified 05/24/24 16:47 allergy, just does not work for him Physical Exam Vitals: Vital Signs Temp Pulse Pulse Resp BP BP BP 05/25/24 07:00 97.3 F L 89 17 113/71 05/25/24 02:00 98.3 F 84 17 116/83 05/24/24 20:00 97.7 F 98 17 107/70 05/24/24 18:15 97.8 F 105 H 18 95/69 05/24/24 17:34 111 H 18 108/84 05/24/24 15:49 98.1 F 95 18 101/61 Pulse Ox 05/25/24 07:00 95 05/25/24 02:00 100 03/10/25 20:00 96 05/24/24 18:15 97 05/24/24 17:34 94 L 05/24/24 15:49 95 Intake and Output 05/24/24 05/25/24 05/25/24 22:59 06:59 14:59 Output Total 0 Balance 0 Output: Stool 0 Other: # Voids 0 0 # Bowel Movements 0 Weight 81.647 kg Results CBC & Chem 7: 05/25/24 07:37 05/25/24 07:37 Labs: Abnormal Lab Results - Last 24 Hours (Table) 05/25/24 05/25/24 Range/Units 07:37 07:37 RBC 4.24 L (4.30-5.90) m/uL Hgb 12.9 L (13.0-17.5) gm/dL MCV 101.2 H (80.0-100.0) fL MCHC 30.0 L (31.0-37.0) g/dL RDW 16.6 H (11.5-15.5) % Plt Count 127 L (150-450) k/uL BUN 65 H (9-20) mg/dL Creatinine 12.01 H* (0.66-1.25) mg/dL Calcium 10.7 H (8.4-10.2) mg/dL AST 14 L (17-59) U/L Total Protein 5.4 L (6.3-8.2) g/dL Thrombosis Risk Factor Assmnt - Choose All That Apply Any of the Below Risk Factors Present?: No Other Risk Factors: No Thrombosis Risk Factor Assessment Level: Very Low Risk Assessment and Plan Time with Patient: Less than 30
[2024-05-25 11:09] VITALS: RESP 16; TEMP 97.1
[2024-05-25 12:10] VITALS: BP 102/82; PULSE 83
--- NOTE | 2024-05-25 12:31 | P.NPCON ---
History of Present Illness - Reason for Consult end stage renal disease - History of Present Illness Reason for consultation: End-stage renal disease History of present illness: Patient is a 53-year-old male seen in renal consultation for end-stage renal disease. He is maintained on home hemodialysis. Last hemodialysis was on Friday. Patient states he noticed that a stitch broke and his femoral cristhian lysis catheter became loose and subsequently fell out. He had a new catheter placed this morning. Patient has no active complaints. No fever or chills. No vomiting or diarrhea. No chest pain or shortness of breath. Vital signs are stable. General: No acute distress. HEENT: Head exam is unremarkable. LUNGS: No audible rhonchi or wheezes. HEART: Rate and Rhythm are regular. ABDOMEN: Nontender. EXTREMITITES: No edema. Past Medical History Past Medical History: Atrial Fibrillation, Dialysis, Eye Disorder, GERD/Reflux, Renal Disease, Seizure Disorder, Thyroid Disorder Additional Past Medical History / Comment(s): 06/2023 quadriceps tendon rupture. Gout. Bruises easily. 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 Kidney transplant in 1998. Hemodialysis FRI,FRI,FRI,FRI,SAT at home. Hx anemia with blood transfusion. 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 Hx diverticulitis. Hx Shingles 02/2021. Hx approximately 7 grand mal seizures in 2021 when on dialysis, unknown etiology, none since. Has nonactive left arm dialysis graft and left groin dialysis port. Frequent headaches. Low blood pressure at times. History of Any Multi-Drug Resistant Organisms: None Reported Past Surgical History: Orthopedic Surgery Additional Past Surgical History / Comment(s): Fistula placement, thyroidectomy, kidney transplant, toenails removed. Left knee ortho surgery. Past Anesthesia/Blood Transfusion Reactions: No Reported Reaction Additional Past Anesthesia/Blood Transfusion Reaction / Comment(s): Blood transfusion - had no issues. Past Psychological History: No Psychological Hx Reported Additional Psychological History / Comment(s): Pt resides with his mother who is his caregiver. Pt ambulates with cane after knee surgery /he memorizes where furniture is placed. Mother performs hemodialysis 4 days a week. 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 No home care. Smoking Status: Never smoker Past Alcohol Use History: None Reported Past Drug Use History: None Reported - Past Family History Mother Family Medical History: Fibromyalgia, Osteoarthritis (OA) Additional Family Medical History / Comment(s): Lupus Family Family Medical History: No Reported History Additional Family Medical History / Comment(s): ETOH abuse Medications and Allergies Home Medications Medication Instructions Recorded Confirmed Type Levothyroxine Sodium [Synthroid] 50 mcg PO DAILY 12/18/17 05/24/24 History Montelukast [Singulair] 10 mg PO HS 12/18/17 05/24/24 History predniSONE 10 mg PO DAILY 04/25/21 05/24/24 History Atorvastatin [Lipitor] 20 mg PO DAILY 10/15/22 05/24/24 History Midodrine HCl [ProAmatine] 10 mg PO QID 10/15/22 05/24/24 History calcitrioL 0.25 mcg PO SUTUTHSA 10/15/22 05/24/24 History calcitrioL 0.5 mcg PO MOWEFR 10/15/22 05/24/24 History Omeprazole [PriLOSEC] 20 mg PO HS 04/25/23 05/24/24 History allopurinoL 100 mg PO DAILY 06/23/23 05/24/24 History Calcium Carbonate [Tums] 500 mg PO QID PRN 12/08/23 05/24/24 History Acetaminophen Tab [Tylenol] 650 mg PO Q6HR PRN tab 01/29/24 05/24/24 Rx Allergies Allergy/AdvReac Type Severity Reaction Status Date / Time adhesive tape Allergy Itching Verified 05/24/24 16:47 codeine Allergy Rash/Hives Verified 05/24/24 16:47 cyclobenzaprine Allergy Rash/Hives Verified 05/24/24 16:47 [From Flexeril] diphenhydramine Allergy Anaphylaxis Verified 05/24/24 16:47 [From Benadryl] hydromorphone [From Dilaudid] Allergy Rash/Hives Verified 05/24/24 16:47 hydroxyzine Allergy Anaphylaxis Verified 05/24/24 16:47 Iodinated Contrast Media Allergy Anaphylaxis Verified 05/24/24 16:47 [Iodinated Contrast- Oral and IV Dye] pantoprazole [From Protonix] Allergy Anaphylaxis Verified 05/24/24 16:47 Penicillins Allergy Rash/Hives Verified 05/24/24 16:47 potassium chloride Allergy Rash/Hives Verified 05/24/24 16:47 pregabalin [From Lyrica] Allergy Anaphylaxis Verified 05/24/24 16:47 sevelamer Allergy Rash/Hives Verified 05/24/24 16:47 warfarin [From Coumadin] Allergy Anaphylaxis Verified 05/24/24 16:47 acetaminophen [From Vicodin] AdvReac Nausea & Verified 05/24/24 16:47 Vomiting aripiprazole [From Abilify] AdvReac Abdominal Verified 05/24/24 16:47 Pain aztreonam AdvReac Unknown Verified 05/24/24 16:47 calcitriol AdvReac Unknown Verified 05/24/24 16:47 cefadroxil AdvReac Unknown Verified 05/24/24 16:47 enalapril AdvReac Unknown Verified 05/24/24 16:47 hydrocodone [From Vicodin] AdvReac Nausea & Verified 05/24/24 16:47 Vomiting Influenza Virus Vaccines AdvReac Unknown Verified 05/24/24 16:47 levofloxacin [From Levaquin] AdvReac Abdominal Verified 05/24/24 16:47 Pain meloxicam [From Mobic] AdvReac Abdominal Verified 05/24/24 16:47 Pain morphine AdvReac Unknown Verified 05/24/24 16:47 propoxyphene AdvReac Unknown Verified 05/24/24 16:47 Sulfa (Sulfonamide AdvReac Vomiting Verified 05/24/24 16:47 Antibiotics) tramadol AdvReac no Verified 05/24/24 16:47 allergy, just does not work for him Physical Exam Vitals: Vital Signs Temp Pulse Pulse Pulse Resp BP BP 05/25/24 11:30 83 05/25/24 11:06 90 05/25/24 10:30 103 H 05/25/24 10:15 100 05/25/24 10:00 91 05/25/24 09:45 97.1 F L 82 16 05/25/24 07:00 97.3 F L 89 17 05/25/24 02:00 98.3 F 84 17 116/83 05/24/24 20:00 97.7 F 98 17 107/70 05/24/24 18:15 97.8 F 105 H 18 95/69 05/24/24 17:34 111 H 18 108/84 05/24/24 15:49 98.1 F 95 18 101/61 BP Pulse Ox 05/25/24 11:30 102/82 96 05/25/24 11:06 115/77 96 05/25/24 10:30 122/76 90 L 05/25/24 10:15 121/77 88 L 05/25/24 10:00 121/88 95 05/25/24 09:45 127/85 96 05/25/24 07:00 113/71 95 05/25/24 02:00 100 05/24/24 20:00 96 05/24/24 18:15 97 05/24/24 17:34 94 L 05/24/24 15:49 95 Intake and Output 05/24/24 05/25/24 05/25/24 22:59 06:59 14:59 Intake Total 50 Output Total 0 Balance 0 50 Intake: IV 50 Output: Stool 0 Other: # Voids 0 0 # Bowel Movements 0 Weight 81.647 kg Results - Lab Results Most recent lab results Calcium 10.7 mg/dL (8.4-10.2) H 05/25/24 07:37 Magnesium 2.1 mg/dL (1.6-2.3) 05/25/24 07:37 05/25/24 07:37 05/25/24 07:37 Assessment and Plan Plan: Assessment: 1. End-stage renal disease maintained on home hemodialysis. 2. Dislodged femoral dialysis catheter status post placement of new catheter this morning. 3. Chronic kidney disease mineral bone disease maintained on phosphate binders and calcitriol outpatient. Calcium 10.7. 4. History of failed renal transplant. Chronically maintained on prednisone outpatient. Plan: Patient will resume hemodialysis at home today. Advised to decrease dose of calcitriol to 0.25 mcg daily. Stable for discharge from nephrology standpoint. Thank you for the consultation. I will continue to follow the patient with you during his hospital stay.
--- NOTE | 2024-05-27 21:47 | P.DS ---
Providers Date of admission: 05/24/24 16:42 Attending physician: Florencio Chamorro MD Consults: 05/24/24 16:41 Consult Physician Urgent Consulting Provider: Christiano Keys Consult Reason/Comments: Dialysis catheter displacement Do you want consulting provider notified?: Yes 05/25/24 08:47 Consult Physician Routine Consulting Provider: Mychal Jerome Consult Reason/Comments: esrd, missed dialysis Do you want consulting provider notified?: Yes Primary care physician: Stated None Hospital Course: Final Diagnosis Hemodialysis cath permacath dislodgment has been replaced by vascular surgery. End-stage renal disease maintained on hemodialysis on a Friday schedule Hypertension with chronic kidney disease hypothyroidism History of hypothyroidism History of failed renal transplant History of seizure disorder Chronic atrial fibrillation not on any anticoagulation on an outpatient basis Discharge Disposition Patient stable for discharge home. He will continue with his same Friday hemodialysis schedule. He has a left groin permacatheter in place. Follow-up with nephrology on discharge. Hospital Course This is a 53-year-old male with medical history of atrial fibrillation, Gastroesophageal reflux, hemodialysis presents to the ER yesterday afternoon stating that his hemodialysis catheter has come out about 8 inches and was nonfunctioning. He has a groin permacatheter and lives at home with his mother who performs his hemodialysis Friday schedule. He is not complaining of any pain shortness of breath chest discomfort. Patient was recently admitted on March 13, 2024 for the same for dialysis catheter dislodgment. Vascular surgery was consulted and patient is now status post left groin hemodialysis permacath. BUN today 65, creatinine 12.01. MCV 101.2. His mom is at the bedside and wants to take him home. Please see medication reconciliation for a list of current medications. Thank you for allowing us to participate in the care of this patient. The impression and plan of care has been dictated by Afshan Mejia, Nurse Practitioner as directed. Dr. Becki MD I have performed a history and physical examination and medical decision making of this patient, discussed the same with the dictator, and agree with the dictators assessment and plan as written, documented as a scribe. Based on total visit time, I have performed more than 50% of this visit. Patient Condition at Discharge: Stable Plan - Discharge Summary Discharge Rx Participant: Yes New Discharge Prescriptions: Continue Montelukast [Singulair] 10 mg PO HS Levothyroxine Sodium [Synthroid] 50 mcg PO DAILY Omeprazole [PriLOSEC] 20 mg PO HS allopurinoL 100 mg PO DAILY Acetaminophen Tab [Tylenol] 650 mg PO Q6HR PRN tab PRN Reason: Fever And/ Or Pain predniSONE 10 mg PO DAILY calcitrioL 0.25 mcg PO SUTUTHSA calcitrioL 0.5 mcg PO MOWEFR Midodrine HCl [ProAmatine] 10 mg PO QID Atorvastatin [Lipitor] 20 mg PO DAILY Calcium Carbonate [Tums] 500 mg PO QID PRN PRN Reason: gerd Discharge Medication List Levothyroxine Sodium [Synthroid] 50 mcg PO DAILY 12/18/17 [History] Montelukast [Singulair] 10 mg PO HS 12/18/17 [History] predniSONE 10 mg PO DAILY 04/25/21 [History] Atorvastatin [Lipitor] 20 mg PO DAILY 10/15/22 [History] Midodrine HCl [ProAmatine] 10 mg PO QID 10/15/22 [History] calcitrioL 0.25 mcg PO SUTUTHSA 10/15/22 [History] calcitrioL 0.5 mcg PO MOWEFR 10/15/22 [History] Omeprazole [PriLOSEC] 20 mg PO HS 04/25/23 [History] allopurinoL 100 mg PO DAILY 06/23/23 [History] Calcium Carbonate [Tums] 500 mg PO QID PRN 12/08/23 [History] Acetaminophen Tab [Tylenol] 650 mg PO Q6HR PRN tab 01/29/24 [Rx] Follow up Appointment(s)/Referral(s): Mychal Jerome DO [STAFF PHYSICIAN] - 1-2 days Patient Instructions/Handouts: Hemodialysis (DC) Activity/Diet/Wound Care/Special Instructions: Activity as tolerated. No showering today. Recommend wearing supportive shorts at bedtime to help prevent from catheter being dislodged. Discharge Disposition: HOME SELF-CARE
== END 2024-05-25 11:44 | disposition home or self-care (01) ==
LOC: EC 15:48 → 6NMEDSUR 16:42
PROVIDERS: ADMIT Internal Medicine; ATTEND Internal Medicine
DX: T82.42XA Displacement of vascular dialysis catheter, initial encounter (principal); Y71.2 Prosthetic and other implants, materials and accessory cardiovascular devices associated with adverse incidents; E03.9 Hypothyroidism, unspecified; G40.909 Epilepsy, unspecified, not intractable, without status epilepticus; H54.7 Unspecified visual loss; I12.0 Hypertensive chronic kidney disease with stage 5 chronic kidney disease or end stage renal disease; N18.6 End stage renal disease; I48.20 Chronic atrial fibrillation, unspecified; M89.8X9 Other specified disorders of bone, unspecified site; Z79.52 Long term (current) use of systemic steroids; Z79.890 Hormone replacement therapy; Z79.899 Other long term (current) drug therapy; Z94.0 Kidney transplant status; Z99.2 Dependence on renal dialysis; Z88.8 Allergy status to other drugs, medicaments and biological substances; Z88.5 Allergy status to narcotic agent; Z88.2 Allergy status to sulfonamides; Z88.7 Allergy status to serum and vaccine; Z91.041 Radiographic dye allergy status
CPT/HCPCS: 99284; 36558; 76937; 77001; 80053; 83735; 85027; G0378 ×2; J2250; J2003; J3010; J1644; J7512